=== PATIENT | female | born 1940 | race Caucasian/White ===

== ENCOUNTER 2019-05-24 14:24 | Observation (INO) | payer MEDICARE, OTHER, SELFPAY ==
[2019-05-24] VITALS (7 sets, daily range): BP systolic 126–164; BP diastolic 56–78; PULSE 76–93; RESP 16–27; TEMP 36.3–36.8; O2SAT 94–98; BMI 42.7
--- NOTE | 2019-05-24 14:50 | DI.RAD.S_ITS ---
PROCEDURE: XR CHEST 1V INDICATIONS: Shortness of breath TECHNIQUE: One view of the chest was acquired. COMPAR[facility]: [facility], [facility] CHEST 2 VIEWS, 06/23/2017, 13:29. [facility], CR, CHEST 1 VIEW, 04/07/2016, 15:31. [facility], CR, CHEST 1 VIEW, 04/02/2014, 19:26. FINDINGS: Surgical changes and devices: None. Lungs and pleura: Lungs are abnormal, mildly edematous. No pleural effusions or pneumothorax. Mediastinum: Mediastinal contours appear normal. Heart size is globally enlarged, chronically. Bones and chest wall: No suspicious bony lesions. Overlying soft tissues appear unremarkable. Thoracolumbar junction region bone cement appears present, at the inferior imaging margin. This has been previously present in June of 2017 also. IMPRESSION: Chronic CHF pattern with acute exacerbation. No focal pneumonia found. Dictated by: Louie Saavedra M.D. on 05/24/2019 at 15:45 Approved by: Louie Saavedra M.D. on 05/24/2019 at 15:46
[2019-05-24 15:07] LABS: Add Manual Diff / Slide Review NO; Basophils Absolute Auto 0 /uL (0-100); Basophils Percent Auto 0.3 % (0-2); Eosinophils Absolute Auto 0 /uL (0-450); Hematocrit 37.3 % (36-46); Hemoglobin 12.8 g/dL (12.0-16.0); Lymphocytes Absolute Auto 300 /uL (1100-4500); Mean Corpuscular HGB Conc 34.2 % (30-36); Mean Corpuscular Hemoglobin 33.3 PG (26-34); Mean Corpuscular Volume 97.4 fL (80-100); Monocytes Absolute Auto 100 /uL (0-900); Monocytes Percent Auto 1.3 % (3-14); Neutrophils Absolute Auto 8700 /uL (1500-7000); Neutrophils Percent Auto 95.4 % (50-75); Platelet Count 265 X10^3/uL (150-400); Red Blood Cell Count 3.83 X10^6/uL (4.0-5.2); Red Cell Distribution Width 14.4 % (11.6-14.8); White Blood Cell Count 9.1 X10^3/uL (4.5-11.0)
[2019-05-24 15:16] LABS: INR 1.3 (0.9-1.3); Prothrombin Time 14.4 SECONDS (10.1-12.7)
[2019-05-24 15:19] LABS: PTT Partial Thromboplastin Tim 33 SECONDS (26.4-36.2)
[2019-05-24 15:25] LABS: Alanine Aminotransferase 17 IU/L (<35); Albumin 4.4 g/dL (3.5-5.0); Albumin Globulin Ratio 1.3 (1.0-2.8); Alkaline Phosphatase 79 U/L (38-126); Aspartate Aminotransferase 24 IU/L (14-36); BUN Creatinine Ratio 42.9 (6-22); Bilirubin Total 0.3 mg/dL (0.2-1.3); Blood Urea Nitrogen 60 mg/dL (7-17); Calcium 10.5 mg/dL (8.4-10.2); Carbon Dioxide 38 mmol/L (22-32); Chloride 93 mmol/L (98-107); Estimated Glomerular Filt Rate 36.3 mL/min (>60); Globulin 3.4 g/dL (1.7-4.1); Glucose 195 mg/dL (80-110); HEMOLYSIS < 15 (0-50); Lipase 162 U/L (23-300); Potassium 4.4 mmol/L (3.4-5.1); Sodium 139 mmol/L (137-145); Total Protein 7.8 g/dL (6.3-8.2)
--- NOTE | 2019-05-24 15:26 | ED.GENADULT ---
HPI - General Adult General Chief complaint: Shortness of Breath/Dyspnea Stated complaint: Needs fluids, bad breathing, sent from Dr Time Seen by Provider: 05/24/19 14:48 Source: patient Mode of arrival: Ambulatory Limitations: no limitations History of Present Illness HPI narrative: Patient is a 79-year-old female sent in by her staple side laster for concerns of fluid overload. Patient states she does have a history of CHF. Is on 80 mg of Lasix 2 times a day. She has been on this for some time now. She does not know when her last echocardiogram was. She also has a history of COPD. Is on medications for this. Is on 2 L of oxygen at home at baseline. Patient states that over the past month she has gained approximately 30 lb. She also has lower extremity swelling. She saw her staple side laster on Friday of last week and was started on steroids. She called him today stating that she felt like her breathing was worsening was told to come to the emergency department. Patient states when she is lying in bed she is at her baseline however with any type of but went even sitting up in taking very short amount of steps next to the area where she is resting she becomes very short of breath. No chest pain associated with. She states she is taking her medications. Related Data Home Medications Medication Instructions Recorded Confirmed [place]-3 1 cap PO DAILY 05/24/19 05/24/19 acetaminophen 650 mg PO Q6H PRN 05/24/19 05/24/19 adalimumab [Humira(CF) Pen] mg SUBCUT 05/24/19 albuterol sulfate 1.25 mg INHALATION Q6H PRN 05/24/19 05/24/19 albuterol sulfate 2 inh INHALATION Q4H PRN 05/24/19 05/24/19 apixaban [Eliquis] 5 mg PO BID 05/24/19 05/24/19 budesonide-formoterol [Symbicort] 1 inh INHALATION BID 05/24/19 05/24/19 bupropion HCl 150 mg PO QPM 05/24/19 05/24/19 calcitonin (salmon) 1 spray INTRANASAL (ALT) DAILY 05/24/19 05/24/19 cholecalciferol (vitamin D3) 5,000 unit PO DAILY 05/24/19 05/24/19 [Vitamin D3] ferrous sulfate 325 mg PO DAILY 05/24/19 05/24/19 fluoxetine 20 mg PO DAILY 05/24/19 05/24/19 furosemide 160 mg PO DAILY 05/24/19 05/24/19 latanoprost 1 drp OPHTHALMIC (EYE) BEDTIME 05/24/19 05/24/19 levalbuterol HCl [Xopenex] 1.25 mg INHALATION Q4H 05/24/19 05/24/19 magnesium oxide 400 mg PO DAILY 05/24/19 05/24/19 melatonin 3 mg PO BEDTIME PRN 05/24/19 05/24/19 metolazone mg PO DAILY 05/24/19 montelukast 10 mg PO DAILY 05/24/19 05/24/19 potassium chloride 40 meq PO DAILY 05/24/19 05/24/19 prednisone See Rx Instructions .ROUTE .COMPLEX 05/24/19 05/24/19 spironolactone 75 mg PO DAILY 05/24/19 05/24/19 tiotropium bromide [Spiriva INHALATION 05/24/19 Respimat] Previous Rx's Medication Instructions Recorded spironolactone 50 mg PO QDAY #30 tab 04/09/16 Allergies Allergy/AdvReac Type Severity Reaction Status Date / Time Sulfa (Sulfonamide Allergy Unknown Unverified 07/02/17 12:30 Antibiotics) Review of Systems Constitutional Constitutional: Denies fever(s) and Denies headache(s) ENT Ears, Nose, Mouth, and Throat: Denies headache(s) Cardiovascular Cardiovascular: Denies chest pain, Denies syncope, Denies rapid heart rate, Reports pedal edema, Reports edema, Reports leg edema, Reports dyspnea and Reports dyspnea on exertion Respiratory Respiratory: Denies cough, Denies hemoptysis, Reports dyspnea and Reports dyspnea on exertion Gastrointestinal Gastrointestinal: Denies abdominal pain, Denies nausea and Denies vomiting Musculoskeletal Musculoskeletal: Denies myalgias and Denies arthralgias Integumentary/Breasts Skin/Breast: Denies lesions and Denies rash Neurologic Neurologic: Denies behavioral changes, Denies syncope and Denies headache(s) Psychiatric Psychiatric: Denies behavioral changes Hematologic/Lymphatic Comments: On Coumadin Patient History Medical History Atrial fibrillation (Acute) Congestive heart failure (Acute) COPD (chronic obstructive pulmonary disease) (Acute) Social History Smoking Status: Former smoker Smoking Status: Former smoker alcohol intake frequency: other Substance Use Type: does not use Exam Initial Vital Signs Initial Vital Signs: Vital Signs Temperature 98.3 F 05/24/19 14:30 Pulse Rate 87 05/24/19 14:30 Respiratory Rate 27 H 05/24/19 14:30 Blood Pressure 164/76 H 05/24/19 14:30 Pulse Oximetry 96 05/24/19 14:30 Const General: cooperative and comfortable Limitations: mental status not altered HENMT Head: normal to inspection and normocephalic Resp Effort & Inspection: normal respiratory effort Auscultation: clear to auscultation bilaterally Cardio Rate: regular rate Rhythm: regular rhythm Pulses: radial pulses present GI Inspection: non-distended Palpation: soft Skin Lesions: no lesions Rashes: no rashes Neuro General: alert, awake and oriented x3 Cognition: normal cognition Speech: speech normal Extrem General: capillary refill normal and edema Psych Appearance: grossly normal and well kempt Scores GCS [place] coma scale eye opening: Spontaneous [place] coma scale verbal response: Orientated [place] coma scale motor response: Obey commands Clyde coma scale total score: 15 Course Orders Ordered: ED Orders 05/24/19 14:50 XR chest 1V Stat 05/24/19 14:57 Complete Blood Count AUTO DIFF Stat Comprehensive Metabolic Panel Stat Lipase Stat NT-proBNP (BNP-Adult 18+) Stat Partial Thromboplastin Time Stat Prothrombin Time INR Stat Troponin I Stat Discontinued Medications Furosemide 100 mg/ Sodium (Chloride) 60 mls @ 120 mls/hr IV NOW ONE Stop: 05/24/19 15:27 Last Infusion: 05/24/19 16:27 Dose: 0 mls/hr Documented by: Admin: 05/24/19 15:53 Dose: 120 mls/hr Documented by: CHERRIE Vital Signs Vital signs: Vital Signs - 8 hr 05/24/19 14:30 05/24/19 15:21 05/24/19 16:09 Temperature 98.3 F Pulse Rate 87 78 76 Respiratory Rate 27 H 22 18 Blood Pressure 164/76 H Blood Pressure [Right Arm] 127/57 L 139/64 Pulse Oximetry 96 95 95 Medical Decision Making Medical Records Medical records reviewed: Yes I reviewed the patient's medical records. Lab Data Lab results reviewed: Yes I reviewed the patient's lab results. Result diagrams: 05/24/19 14:57 05/24/19 14:57 Labs: Lab Results 05/24/19 05/24/19 05/24/19 Range/Units 14:57 14:57 14:57 WBC 9.1 (4.5-11.0) X10^3/uL RBC 3.83 L (4.0-5.2) X10^6/uL Hgb 12.8 (12.0-16.0) g/dL Hct 37.3 (36-46) % MCV 97.4 (80-100) fL MCH 33.3 (26-34) PG MCHC 34.2 (30-36) % RDW 14.4 (11.6-14.8) % Plt Count 265 (150-400) X10^3/uL Neut % (Auto) 95.4 H (50-75) % Lymph % (Auto) 3.0 L (25-40) % [place] % (Auto) 1.3 L (3-14) % Eos % (Auto) 0.0 L (2-4) % Baso % (Auto) 0.3 (0-2) % Neut # (Auto) 8700 H (7580-1992) /uL Lymph # (Auto) 300 L (1227-9624) /uL [place] # (Auto) 100 (0-900) /uL Eos # (Auto) 0 (0-450) /uL Baso # (Auto) 0 (0-100) /uL PT 14.4 H (10.1-12.7) SECONDS INR 1.3 (0.9-1.3) APTT 33 (26.4-36.2) SECONDS Sodium 139 (137-145) mmol/L Potassium 4.4 (3.4-5.1) mmol/L Chloride 93 L (98-107) mmol/L Carbon Dioxide 38 H (22-32) mmol/L BUN 60 H (7-17) mg/dL Creatinine 1.40 H (0.52-1.04) mg/dL Estimated GFR 36.3 L (>60) mL/min BUN/Creatinine Ratio 42.9 H (6-22) Glucose 195 H (80-110) mg/dL Calcium 10.5 H (8.4-10.2) mg/dL Total Bilirubin 0.3 (0.2-1.3) mg/dL AST 24 (14-36) IU/L ALT 17 (<35) IU/L Alkaline Phosphatase 79 (38-126) U/L Troponin I 0.016 (0.01-0.034) ng/mL NT-Pro-B Natriuret Pep 337 (<450) pg/mL Total Protein 7.8 (6.3-8.2) g/dL Albumin 4.4 (3.5-5.0) g/dL Globulin 3.4 (1.7-4.1) g/dL Albumin/Globulin Ratio 1.3 (1.0-2.8) Lipase 162 (23-300) U/L Imaging Data Chest x-ray: Radiologist's Impression: [address] [address] XRay Report Signed Patient: Leyda Nielsen MMR#: [id number] : 1940Acct:[id number] Age/Sex: 79 / FDate of Service: 05/24/19 Loc: ED Accession Number: [id number] Procedure: XR chest 1V Ordering Provider: Chico Nolasco D.O. PROCEDURE: XR CHEST 1V INDICATIONS: Shortness of breath TECHNIQUE: One view of the chest was acquired. [facility], 06/23/2017, 13:29. [facility], CR, CHEST 1 VIEW, 04/07/2016, 15:31. [facility], CR, CHEST 1 VIEW, 04/02/2014, 19:26. FINDINGS: Surgical changes and devices: None. Lungs and pleura: Lungs are abnormal, mildly edematous. No pleural effusions or pneumothorax. Mediastinum: Mediastinal contours appear normal. Heart size is globally enlarged, chronically. Bones and chest wall: No suspicious bony lesions. Overlying soft tissues appear unremarkable. Thoracolumbar junction region bone cement appears present, at the inferior imaging margin. This has been previously present in June of 2017 also. IMPRESSION: Chronic CHF pattern with acute exacerbation. No focal pneumonia found. Dictated by: Louie Saavedra M.D. on 05/24/2019 at 15:45 Approved by: Louie Saavedra M.D. on 05/24/2019 at 15:46 ECG Data Attestation: I personally reviewed and interpreted this ECG as follows: Prior ECG tracings: not available for review Interpretation: Sinus rhythm Ventricular rate is 73 Left axis deviation QRS 160 milliseconds Normal QTC Right bundle branch block No ST T wave changes MDM Narrative Medical decision making narrative: Patient not in atrial fibrillation on her EKG she is at baseline 2 L by nasal cannula and is now requiring 3 or more L. She is dyspneic on exertion. She is rather calm and not in respiratory distress when she is just sitting in the bed. Her chest x-rays concerning for fluid overload. Clinically she is concern for fluid overload. Not hypertensive. Her BNP is relatively unremarkable. Troponin is negative. She is not complaining of chest pain. She was given 100 mg Lasix IV. A [place] was placed per her request due to the dyspnea whenever she moves in the anticipation of having to urinate. I did discuss the case with Dr. Cardenas who except for further evaluation and treatment. I discussed with the patient expressed understanding and agreement. Discharge Plan Departure Patient Disposition: Admitted As Inpatient Clinical Impression: BASHIR (dyspnea on exertion) CHF (congestive heart failure) Qualifiers: Heart failure type: unspecified Heart failure chronicity: acute Qualified Code(s): I50.9 - Heart failure, unspecified COPD (chronic obstructive pulmonary disease) Qualifiers: COPD type: unspecified COPD Qualified Code(s): J44.9 - Chronic obstructive pulmonary disease, unspecified Admit Date/Time: 05/24/19 16:29 Admit Provider: Norman Cardenas
[2019-05-24 15:35] LABS: NT-proBNP (BNP-Adult 18+) 337 pg/mL (<450); Troponin I 0.016 ng/mL (0.01-0.034)
[2019-05-24] MEDS: FUROSEMIDE 100 MG in SODIUM CHLORIDE 0.9% 50 ML 120 ML IV ×2 (15:53→22:12)
--- NOTE | 2019-05-24 18:34 | P.HP_ITS ---
History of Present Illness History of Present Illness Date Patient Seen: 05/24/19 Time Patient Seen: 18:36 Chief complaint: Needs fluids, bad breathing, sent from Dr Ayers: Leyda Nielsen is a 79-year-old female with past medical history of COPD on home O2, paroxysmal atrial fibrillation on Eliquis, psoriasis on Humira, and osteoporosis who presented after recommendation from her water treatment technician to the emergency room with dyspnea on exertion. Patient states that she is not short of breath at rest, but for the past month she is unable to really ambulate at all without shortness of breath. She has also gained approximately 30 lb over this time and reports both upper and lower extremity edema, although her edema is somewhat worse in her lower extremity. She takes Lasix and metolazone for her edema, but has been on this for the past year without any changes. She did not have a dosing change recently. She was recommended to come to the emergency room for diuresis as directed by her water treatment technician who she saw earlier today. She reports a slightly worsened cough from baseline, with white/thick sputum, but no recent fevers or chills. She denies any nasal congestion, headaches, muscle aches, or recent sick contacts. In the ED the patient had hypoxia with minimal exertion, but not at rest. She was given a dose of 80 mg of IV Lasix with no real change in the patient's symptoms. Chest x-ray showed cardiomegaly with bilateral hazy opacities consis tent with volume overload. EKG showed sinus rhythm with a right bundle branch block, which is old, without any significant morphology changes compared to her prior EKGs. Laboratory evaluation showed a WBC count of 9.1, but was otherwise unremarkable. Chemistries were notable for a creatinine of 1.4, last known was 0.8 in 2017, glucose of 195, calcium of 10.5 (corrected normal with albumin of 4.4), and a bicarb of 38, BNP of 337, troponin of 0.016. Patient was admitted to Medicine for likely acute decompensated CHF. Patient History Medical History Atrial fibrillation (Acute) Congestive heart failure (Acute) COPD (chronic obstructive pulmonary disease) (Acute) Family & Social History Social History: household members none Prior Living Arrangements House Safety & Behavioral: Feels Safe in Current Yes Environment Been Physically Hurt or No Threatened By a Person Suicidal Ideation Description None Suicide Plan Description No Plan Tobacco & Substance use: Smoking Status Former smoker alcohol intake current alcohol intake frequency a few times a week Substance Use Type does not use Meds Home Medications and Allergies Home Medications Medication Instructions Recorded Confirmed Type [place]-3 1 cap PO DAILY 05/24/19 05/24/19 History acetaminophen 650 mg PO Q6H PRN 05/24/19 05/24/19 History adalimumab [Humira(CF) Pen] 0.4 mg SUBCUT Q2W 05/24/19 05/24/19 History albuterol sulfate 1.25 mg INHALATION Q6H PRN 05/24/19 05/24/19 History albuterol sulfate 2 inh INHALATION Q4H PRN 05/24/19 05/24/19 History apixaban [Eliquis] 5 mg PO BID 05/24/19 05/24/19 History budesonide-formoterol [Symbicort] 1 inh INHALATION BID 05/24/19 05/24/19 History bupropion HCl 150 mg PO QPM 05/24/19 05/24/19 History calcitonin (salmon) 1 spray INTRANASAL (ALT) DAILY 05/24/19 05/24/19 History cholecalciferol (vitamin D3) 5,000 unit PO DAILY 05/24/19 05/24/19 History [Vitamin D3] ferrous sulfate 325 mg PO DAILY 05/24/19 05/24/19 History fluoxetine 20 mg PO DAILY 05/24/19 05/24/19 History furosemide 80 mg PO BID 05/24/19 05/24/19 History latanoprost 1 drp OPHTHALMIC (EYE) BEDTIME 05/24/19 05/24/19 History levalbuterol HCl [Xopenex] 1.25 mg INHALATION Q4H 05/24/19 05/24/19 History magnesium oxide 400 mg PO DAILY 05/24/19 05/24/19 History melatonin 3 mg PO BEDTIME PRN 05/24/19 05/24/19 History metolazone 1.25 mg PO DAILY 05/24/19 05/24/19 History montelukast 10 mg PO QPM 05/24/19 05/24/19 History potassium chloride 40 meq PO DAILY 05/24/19 05/24/19 History prednisone See Rx Instructions .ROUTE .COMPLEX 05/24/19 05/24/19 History spironolactone 75 mg PO DAILY 05/24/19 05/24/19 History tiotropium bromide [Spiriva 2 inh INHALATION DAILY 05/24/19 05/24/19 History Respimat] Allergies Allergy/AdvReac Type Severity Reaction Status Date / Time Sulfa (Sulfonamide Allergy Unknown Unverified 07/02/17 12:30 Antibiotics) Review of Systems Review of Systems Narrative: All other systems reviewed with the patient and are negative unless otherwise stated. Exam Vital Signs (past 8 hours): - 05/24/19 14:30 05/24/19 15:21 05/24/19 16:09 Temperature 98.3 F Pulse Rate 87 78 76 Respiratory Rate 27 H 22 18 Blood Pressure 164/76 H Blood Pressure [Right Arm] 127/57 L 139/64 Pulse Oximetry 96 95 95 05/24/19 17:25 Temperature 98.2 F Pulse Rate 78 Respiratory Rate 20 Blood Pressure 131/78 Blood Pressure [Right Arm] Pulse Oximetry 97 Oxygen Delivery Method Nasal Cannula Oxygen Flow Rate 0 Narrative Exam Narrative: GENERAL APPEARANCE: Obese female, in no acute distress SKIN: Inspection of the skin reveals no rashes, ulcerations or petechiae. HEENT: Moist mucous membranes, there is no rhinorrhea, no oral lesions. NECK: Supple and symmetric. There was no thyroid enlargement, and no tenderness, or masses were felt. CHEST: Normal AP diameter and normal contour without any kyphoscoliosis. LUNGS: Auscultation of the lungs revealed bibasilar crackles, with diminished breath sounds at the lung bases as well. Upper airways there are no wheezes rhonchi or rales. CARDIOVASCULAR: There was a regular rate and rhythm without any murmurs, gallops, rubs. Peripheral pulses were 2+ and symmetric. No JVD, but positive hepato-jugular reflex. ABDOMEN: Soft, obese, and nontender with normal bowel sounds. No ascites was noted. MUSCULOSKELETAL: There was no tenderness or effusions noted. Muscle strength and tone were normal. EXTREMITIES: No cyanosis, clubbing. There is pitting edema of her bilateral lower extremities, she also has upper extremity edema but it is not pitting consistent with possible anasarca. NEUROLOGIC: Alert and oriented x 3. Normal affect. Gait was normal. Strength is +5/5 in the Upper Extremities and Lower Extremities Bilaterally. Sensation to touch was normal. Objective ECG Impression: Normal sinus rhythm with unchanged right bundle branch block. Imaging Chest x-ray: My impression: Obesity, cardiomegaly, bilateral hazy opacities consistent with volume overload. Radiologist's impression: Acute CHF. Labs Result Diagrams: 05/24/19 14:57 05/24/19 14:57 Labs: Laboratory Results - last 24 hr 05/24/19 05/24/19 05/24/19 14:57 14:57 14:57 WBC 9.1 RBC 3.83 L Hgb 12.8 Hct 37.3 MCV 97.4 MCH 33.3 MCHC 34.2 RDW 14.4 Plt Count 265 Neut % (Auto) 95.4 H Lymph % (Auto) 3.0 L [place] % (Auto) 1.3 L Eos % (Auto) 0.0 L Baso % (Auto) 0.3 Neut # (Auto) 8700 H Lymph # (Auto) 300 L [place] # (Auto) 100 Eos # (Auto) 0 Baso # (Auto) 0 PT 14.4 H INR 1.3 APTT 33 Sodium 139 Potassium 4.4 Chloride 93 L Carbon Dioxide 38 H BUN 60 H Creatinine 1.40 H Estimated GFR 36.3 L BUN/Creatinine Ratio 42.9 H Glucose 195 H Calcium 10.5 H Total Bilirubin 0.3 AST 24 ALT 17 Alkaline Phosphatase 79 Troponin I 0.016 NT-Pro-B Natriuret Pep 337 Total Protein 7.8 Albumin 4.4 Globulin 3.4 Albumin/Globulin Ratio 1.3 Lipase 162 Assessment & Plan Assessment & Plan narrative: Leyda Nielsen is a 79-year-old female with past medical history of COPD on home O2, paroxysmal atrial fibrillation on Eliquis, psoriasis on Humira, and osteoporosis who presented after recommendation from her water treatment technician to the emergency room with dyspnea on exertion which at this time appears most likely due to acute decompensated heart failure, pending further evaluation. 1. Acute on chronic hypoxemic respiratory failure with dyspnea on exertion, present on admission -patient with baseline dyspnea on exertion limited to about 50 ft from her severe COPD. She is also on chronic home O2 but reports her oxygen requirements have increased at home from 1-2 L to now 3-4 over the past month and the patient further reports inability to ambulate at all due to severe shortness of breath. -at this time etiology is most likely acute decompensated heart failure given chest x-ray appearance, volume overload on exam, and recent 30 lb weight gain. Further differential includes nephrotic syndrome with difficulty diuresing, or possibly cor pulmonale, upper respiratory infection or COPD exacerbation however these are felt unlikely at this time. -will continue IV diuresis with Lasix 100 mg every 8 hours -obtain formal echocardiogram -try and obtain outside records from patient's water treatment technician -obtain viral respiratory panel -respiratory therapy eval and treat -pending echocardiogram likely to recommend holding Humira as this can be a cause of acute heart failure. -continue home Aldactone -initial high sensitivity troponin is within normal limits, in a patient without chest pain or EKG changes will not repeat at this time. 2. Paroxysmal atrial fibrillation on anticoagulation, chronic, not present on admission -continue home apixaban -EKG on presentation was normal sinus rhythm with a right bundle branch block, unchanged from prior studies. 3. COPD on home O2, likely does not represent acute exacerbation -as noted above dyspnea on exertion is likely due to volume overload at this time. Will obtain viral panel to further assess, but will attempt diuresis 1st. She is not require steroids at this time. She takes home Spiriva and Symbicort, will replace here with formulary medications. -respiratory therapy eval and treat 4. Psoriasis on Humira, chronic, improved -patient reports Humira injections every 2 weeks, with last dose approximately week and half ago. Pending further evaluation above she may need to discontinue Humira and follow-up with her photographer motion picture if she has heart failure. She reports good response to Humira as far as her psoriasis. 5. Metabolic alkalosis, unclear chronicity, present on admission -will check VBG in the morning to see if there is any hypercarbia with her chronic respiratory failure as this may explain her alkalosis. Given anasarca, with high dose of Lasix and metolazone this could also represent intravascular volume depletion. Will need to see based on her echocardiogram, response to Lasix, and kidney workup as above. Code: Full, does not have a specific surrogate decision maker, but elects to have her sons make decisions for her DVT: On apixaban Dispo: Admitted as inpatient as her stay is likely to exceed 2 midnights.
--- NOTE | 2019-05-24 18:51 | DI.ECHO.S_ITS ---
[facility] +---------+ : : [address] : [place] : : : : [id number] : : : : Phone: [phone]+ Echocardiogram Report + + :Name: ARBEN BAL Study Date: 05/26/2019 Height: 64 in : :[facility] Weight: 249 lb : : Gender: Female BSA: 2.1 m2 : :: 1940 Age: 79 yrs BP: 120/77 mmHg: :Reason For Study: Dyspnea : :Ordering Physician: Davina : :Hospitalist Performed By: Esthela Macias : :Referring: ANEL CLIFFORD : + + Interpretation Summary The study quality was technically difficult. A contrast injection of Definity was performed to improve assessment of LV function. Left ventricular wall thickness is mild-moderately increased. The left ventricular ejection fraction is normal. No obvious wall motion abnormalities but image quality is suboptimal despite echocontrast use due to patient's body habitus and poor acoustic windows. The anterior wall is not adequately visualized due to poor 2 chamber views. Compared to the prior echo, the PA pressure is lower. Procedure: A two-dimensional transthoracic echocardiogram with color flow and Doppler was performed. The study quality was technically difficult. A contrast injection of Definity was performed to improve assessment of LV function. Comparison is made with the echocardiogram of 04/08/2016. The patient was in sinus tachycardia with heart rates between 86-113 bpm during the exam. Left Ventricle: The left ventricle is grossly normal size. Left ventricular wall thickness is mild-moderately increased. The ejection fraction is estimated to be 60-65%. The left ventricular ejection fraction is normal. There are no obvious focal wall motion abnormalities noted but poor endocardial definition reduces the sensitivity for the detection of such. Diastolic function could not be accurately assessed due to tachycardia. Right Ventricle: The right ventricle is not well visualized. Right ventricular systolic function is at the lower limits of normal. Atria: The left atrium grossly appears normal in size. Right atrium not well visualized secondary to technical limitations. There is no Doppler evidence for an interatrial shunt. Mitral Valve: The mitral valve is grossly normal. There is trace mitral regurgitation. Aortic Valve: The aortic valve is not well visualized. There is no aortic valve stenosis. No aortic regurgitation is present. Tricuspid Valve: The tricuspid valve is not well visualized. There is trace tricuspid regurgitation. The right ventricular systolic pressure is estimated to be at least 24 mmHg based on an estimated right atrial pressure of 3 mm Hg. Pulmonic Valve: The pulmonic valve is not well visualized. Great Vessels: The aortic root is normal size. The ascending aorta is at the upper limits of normal in size. The IVC is of normal diameter and collapses greater than 50% with a sniff. This suggests a low right atrial pressure of 3 mm Hg. Pericardium/ Pleura There is no pericardial effusion. There is no pleural effusion. MMode/2D Measurements & Calculations LVIDd: 5.3 cm LVOT diam: 2.2 cm LVIDs: 3.8 cm Ao root diam: 3.3 cm FS: 27.9 % asc Aorta Diam: 3.4 cm IVSd: 1.1 cm LVPWd: 1.4 cm LV valdez. diameter/BSA (cm/m^2): 2.5 LV sys. diameter/BSA (cm/m^2): 1.8 LA A2 area: 19.6 cm2 RA long axis: 5.5 cm LA A4 area: 23.9 cm2 RA area: 19.1 cm2 LA length (vol): 5.8 cm RA vol: 56.9 ml LA vol: 69.0 ml RA : 26.5 ml/m2 LA vol index: 32.2 ml/m2 IVC diam: 1.5 cm TAPSE: 1.7 cm Doppler Measurements & Calculations Ao V2 max: 185.3 cm/sec LVOT Max Dionicio: 88.9 cm/sec Ao V2 mean: 128.7 cm/sec LV V1 max P.2 mmHg Ao max P.7 mmHg LV V1 VTI: 13.8 cm Ao mean P.5 mmHg STEVE(I,D): 1.8 cm2 Ao V2 VTI: 28.1 cm STEVE(V,D): 1.8 cm2 sev ratio: 0.49 STEEV indexed to BSA (cm^2/m^2): 0.84 Med Peak E' Dionicio: 9.9 cm/sec TR max dionicio: 230.8 cm/sec Lat Peak E' Dionicio: 9.6 cm/sec TR max P.3 mmHg PA Accel Time: 0.06 sec SV(LVOT): 50.8 ml Electronically signed by: Gato Askew M.D. on Reading Physician:05/26/2019 02:05 PM
[2019-05-24 19:08] LABS: Creatinine Urine Random 45.4 mg/dL; Protein (Total) Urine Random 10 mg/dL (0-12); Protein Creatinine Ratio Urine 0.22 GRAM/24H
--- NOTE | 2019-05-24 19:32 | DI.US.S_ITS ---
PROCEDURE: US RENAL COMPLETE INDICATIONS: DOM, ANASARCA TECHNIQUE: Real-time scanning was performed of the kidneys and bladder, with image documentation. COMPARISON: None. FINDINGS: Kidneys: Kidneys are normal in size. Right kidney measures 10.4 cm long; left kidney measures 11.5 cm long. Right renal cortical thickness is 1.3 cm; left renal cortical thickness is 1.2 cm. Renal cortical echotexture is normal. Kidneys are increased in echogenicity. No hydronephrosis or nephrolithiasis seen. No suspicious solid mass lesions. Bladder: Decompressed with Willoughby catheter. Miscellaneous: No free pelvic fluid. IMPRESSION: No hydronephrosis. Increased renal echogenicity suggestive of medical renal disease. Dictated by: Petey Mcclelland M.D. on 05/26/2019 at 10:58 Approved by: Petey Mcclelland M.D. on 05/26/2019 at 11:00
[2019-05-24] MEDS: ALBUTEROL/IPRATROPIUM 3 ML AMPUL INH (21:04)
[2019-05-24] MEDS: APIXABAN 5 MG TABLET PO (22:07)
[2019-05-24 22:22] LABS: Bacteria Urine None Seen; WBC Urine None Seen (0-5/HPF)
[2019-05-24 22:24] LABS: Appearance Urine UA CLEAR; Bilirubin Urine UA NEGATIVE (NEGATIVE); Color Urine UA YELLOW; Glucose Urine UA NEGATIVE (Negative); Ketones Urine UA NEGATIVE (NEGATIVE); Leukocyte Esterase Urine UA TRACE (NEGATIVE); Nitrite Urine UA NEGATIVE (Negative); Occult Blood Urine UA TRACE-INTACT (Negative); Protein Urine UA NEGATIVE (Negative); Specific Gravity Urine UA 1.015 (1.000-1.035); Urobilinogen Urine UA 0.2 E.U./dL (0.2)
[2019-05-24 22:25] LABS: pH Urine UA 6.5 (4.5-8.0)
[2019-05-24] MEDS: FLUTICASONE 110MCG HFA 120 PUFF INH (22:31)
[2019-05-24] MEDS: LATANOPROST 0.005% OPHTH 2.5 ML 1 DROPS EYE-BOTH (22:38)
--- NOTE | 2019-05-24 22:41 | PC.NURSE ---
Pt arrived from ED @ 1725 Some SOB on excertion. SpO2 95% 3L, trilogy at HS HL LFA intact/patent. Willoughby cath patent clear/yellow urine. Pt oriented to room & call system. Call light w/in reach, bed alarm on for pt safety. Continue w/plan of care.
[2019-05-24 23:09] LABS: Culture Indicated Urine Specimen Cultured; RBC Urine 0-1/HPF (0-5/HPF)
[2019-05-25] VITALS (7 sets, daily range): BP systolic 108–136; BP diastolic 42–82; PULSE 74–106; RESP 16–22; TEMP 36.5–37.1; O2SAT 94–99
[2019-05-25 05:36] LABS: HCO3 VBG 45 mmol/L (23-28); Oxygen Saturation VBG 94 % (70-75); PCO2 VBG 63.4 mmHg (45-50); PO2 VBG 72 mmHg (35-45); Total CO2 VBG 47 mmol/L (24-29); pH VBG 7.46 (7.33-7.43)
[2019-05-25 05:45] LABS: BUN Creatinine Ratio 45.4 (6-22); Blood Urea Nitrogen 59 mg/dL (7-17); Calcium 10.3 mg/dL (8.4-10.2); Chloride 87 mmol/L (98-107); Estimated Glomerular Filt Rate 39.5 mL/min (>60); Glucose 104 mg/dL (80-110); HEMOLYSIS < 15 (0-50); Magnesium 1.9 mg/dL (1.6-2.3); Phosphorous 3.7 mg/dL (2.8-4.1); Potassium 3.5 mmol/L (3.4-5.1); Sodium 137 mmol/L (137-145)
[2019-05-25 05:56] LABS: Add Manual Diff / Slide Review NO; Basophils Absolute Auto 0 /uL (0-100); Basophils Percent Auto 0.3 % (0-2); Eosinophils Absolute Auto 0 /uL (0-450); Eosinophils Percent Auto 0.4 % (2-4); Hematocrit 36.5 % (36-46); Hemoglobin 12.4 g/dL (12.0-16.0); Lymphocytes Absolute Auto 1100 /uL (1100-4500); Lymphocytes Percent Auto 12.9 % (25-40); Mean Corpuscular Hemoglobin 32.9 PG (26-34); Mean Corpuscular Volume 96.9 fL (80-100); Monocytes Absolute Auto 800 /uL (0-900); Monocytes Percent Auto 9.6 % (3-14); Neutrophils Absolute Auto 6500 /uL (1500-7000); Neutrophils Percent Auto 76.8 % (50-75); Platelet Count 245 X10^3/uL (150-400); Red Blood Cell Count 3.77 X10^6/uL (4.0-5.2); Red Cell Distribution Width 14.4 % (11.6-14.8); White Blood Cell Count 8.4 X10^3/uL (4.5-11.0)
[2019-05-25 05:59] LABS: TSH w/ Reflex to FT4 1.01 uIU/mL (0.47-4.68)
[2019-05-25] MEDS: FUROSEMIDE 100 MG in SODIUM CHLORIDE 0.9% 50 ML 120 ML IV ×3 (06:01→22:03)
[2019-05-25 06:11] LABS: Carbon Dioxide 41 mmol/L (22-32)
--- NOTE | 2019-05-25 06:12 | PC.NURSE ---
Lab called with Critical Co2 @ 41. Rosario RHODES notified.
[2019-05-25] MEDS: acetaZOLAMIDE 250 MG TABLET PO ×2 (08:34→20:38)
[2019-05-25] MEDS: CALCITONIN,SALMON, NASAL SPRAY 1 SPRAYS NASAL (08:35)
[2019-05-25] MEDS: SPIRONOLACTONE 25 MG TABLET 75 MG PO (08:35)
[2019-05-25] MEDS: FLUoxetine 20 MG CAPSULE PO (08:35)
[2019-05-25] MEDS: FLUTICASONE 110MCG HFA 120 PUFF INH ×2 (08:35→20:38)
[2019-05-25] MEDS: FERROUS SULFATE 325 MG TABLET PO (08:43)
[2019-05-25] MEDS: APIXABAN 5 MG TABLET PO ×2 (08:43→20:35)
[2019-05-25] MEDS: ALBUTEROL/IPRATROPIUM 3 ML AMPUL INH ×2 (08:52→20:38)
--- NOTE | 2019-05-25 09:18 | CM.DANOTE ---
Addendum entered by Amanda Peoples LPN 05/25/19 13:11: Was able to meet with pt before Bedside Rounds and again in followup when rounding with Dr. Cardenas and team. Introduced self and role. Pt stated that I feel so much better. I am hopeful that I will be able to go home soon. Pt confirms that she does use o2 14/10: vendor: [employer] (they just changed the name). She drives and is functionally independent in the community, only using her 4WW when she is out and about (and it is a good carrier for her 02.) Pt says she has lots of family support. She is but her sister Latrice is currently staying with her for supportive assist. She also has 3 adult children who both live within 2 blocks of her home. Pt needing testing that Dr. Cardenas confirmed must be done prior to consideration of a d/c to home and at this point he expects this to be tomorrow. He discussed this with pt in Rounds. PT has also been ordered. No note is yet available. P: home when stable for same. Original Note: Discharge Planning/Care Management DCP: assessment: case received, EMR reviewed. Will meet with pt shortly in Team Rounds. Pt is a 79 year old female who admitted yesterday late afternoon to care of hospitalist team. PCP: Josue Menchaca. Brand Marketing Specialist: pt was sent to ER after seeing this specialist in clinic. Payer: Medicare and for Life Admission status: in review: per UR MEAGAN Robison Pt carries diagnosis : COPD and on home o2. She sees a harness racing handicapper for psoriosis: on Humira Obesity: note weight: 272 lbs. Full dx and POC are currently in process. DCP team will follow to assist with d/c issues and options as these are clearer. CM Discharge Assessment Start: 05/25/19 09:16 Freq: Status: Active Protocol: Document 05/25/19 09:16 ITV (Rec: 05/25/19 09:18 ITV [id number]) Discharge Planning Assessment Advance Directives? No History Provided By Patient,Medical Record Prior Living Arrangements House Household Members none Whiteboard Updated in Patient Room with Yes name and ext. # of Welt Edge Rounder Review Status In Process
--- NOTE | 2019-05-25 11:11 | PC.NURSE ---
Pt denies dyspnea, at rest; O2 1L=95%; fine crackles to posterior RLL; 1+ Edema and pink, dry skin to BLLEs; generalized dry skin r/t psoriasis; Willoughby patent and draining clear yellow to gravity; PT ordered
--- NOTE | 2019-05-25 14:30 | PT.IIE ---
Current Diagnoses Acute and chronic respiratory failure with hypoxia (05/24/19) Medical History (Last Reviewed 05/24/19 @ 16:57 by Chico Nolasco DO) Atrial fibrillation (Acute) Congestive heart failure (Acute) COPD (chronic obstructive pulmonary disease) (Acute) Physical Therapy Inpatient Evaluation/Re-Eval M1 PT/OT-IP Prior Functional Status Start: 05/25/19 15:37 Freq: NEEDED Status: Active Protocol: Document 05/25/19 14:30 AB (Rec: 05/25/19 16:11 AB [id number]) Medical Review Prior Functional Status Medical History Reviewed Yes Communication able to make needs known Mobility and Gait pt stated that she is modified independent with all mobilities an ambulation without AD indoors but uses 4WW for outdoor/long distance mobility Social History Household Members none Living Arrangements House Number of Floors (Floors) Two Floors Number of Stairs To Enter/Railing? pt stays on main level of the house has 7+7 steps with bilateral rails to enter Home Environment High Toilet,Walk in Shower Home Equipment Four Wheel Walker,Shower Seat with Backrest,Hand Held Shower ,Grab Bars Near Toilet,Grab Bars In Shower Additional Social History Comment pt has R bedrail pt's sister will stay with pt until the end of the month to assist her M2 PT-IP Current Condition Start: 05/25/19 15:37 Freq: NEEDED Status: Active Protocol: Document 05/25/19 14:30 AB (Rec: 05/25/19 16:11 AB [id number]) Physical Therapy Current Condition Current Condition Evaluation Date 05/25/19 Treatment Diagnosis CHF; difficulty in walking Onset Date 05/24/2019 Precautions Other Precautions O2 sat M3 PT-IP Subjective Start: 05/25/19 15:37 Freq: NEEDED Status: Active Protocol: Document 05/25/19 14:30 AB (Rec: 05/25/19 16:11 AB [id number]) Subjective Physical Therapy Visit Type Type Initial Evaluation Visit Start Time 14:30 Visit Stop Time 15:00 Total Visit Minutes 30 Number of WOODWORK SALVAGE INSPECTOR Visits 0 Physical Therapy Visit Comments Patient Comments pt agreeable to do PT Therapy Pain Assessment Pain Present Pain Present Denied Pain M4 PT-IP Mobility and Gait Start: 05/25/19 15:37 Freq: NEEDED Status: Active Protocol: Document 05/25/19 14:30 AB (Rec: 05/25/19 16:11 AB [id number]) PT-Bed Mobility Assessment Supine to Sit Supine to Sit Standby Assistance,Bedrails PT-Transfer Assessment Sit to and From Stand Sit to and from Stand Contact Guard Assistance,1 Person Assistance,Use of Upper Extremities Equipment Transfer Assistive Device None,Gait Belt Orthotic/Prosthetic Devices or Brace: No Transfers Transfer Destination Chair Transfer Technique ambulated without AD Transfer Ability Level of Assist Contact Guard Assistance,1 Person Assistance,Use of Upper Extremities Comments Mobility Comments pt completed bed mobility supine to sit SBA with use of bed rail. completed sit to stand CGA and ambulated in room ~ 25 ft CGA. pt can be impulsive. O2 sat at rest with 1 1/2 O2 96% and maintained at 92% with acitivity. pt agreed to sit up on chair. positioned pt on chair. call light and table placed within reach. Gait Assessment Gait Gait Assistance Required: Contact Guard Assist Distance (Feet) 25 Able to Maintain Weight Bearing Status Yes During Gait Assistive Devices Assistive Device None,Gait Belt Orthotic/Prosthetic Devices or Brace: No Gait Deviations General Gait Pattern Antalgic,Decreased Stride Length,Decreased Feet Clearance,Step-to Gait Factors Limiting Gait Function Factors Limiting Gait Function Decreased Activity Tolerance, Decreased Strength,Poor Balance,Poor Safety Awareness, Respiratory Distress Comments Gait Comments ambulated in room. pt can be impulsive. presents with unsteady antalgic gait. O2 sat with 1 1/2 L/min O2: 96 %. decreased to 92% after ambulation. MN after ambulation 121 bpm with (+) SOB. PT-Balance Assessment Sitting Balance and Reactions Static Sitting Balance Ability Good Dynamic Sitting Balance Ability Good Standing Balance and Reactions Static Standing Balance Ability Fair Dynamic Standing Balance Ability Fair Device Used without AD M5 PT-IP Objective Assessments Start: 05/25/19 15:37 Freq: NEEDED Status: Active Protocol: Document 05/25/19 14:30 AB (Rec: 05/25/19 16:11 AB [id number]) Orientation Orientation/Cognition Level of Alertness Alert Orientation Name,Age,Date,Year,Place, Situation Language Function Ability No Deficits Noted Safety Awareness Decreased Safety Awareness Gross Range of Motion Lower Extremity ROM Assessment Within Functional Limits Strength Lower Extremity Strength Assessment Bilaterally Impaired Hip 3+/5 Knee 3+/5 Sensation Assessment Sensation Gross Sensation WNL Muscle Tone Muscle Tone WNL Yes M6 PT-IP Treatment Start: 05/25/19 15:37 Freq: NEEDED Status: Active Protocol: Document 05/25/19 14:30 AB (Rec: 05/25/19 16:11 AB [id number]) Physical Therapy Treatment Education Education Provided Precautions,Safety M7 PT-IP Assessment and Plan Start: 05/25/19 15:37 Freq: NEEDED Status: Active Protocol: Document 05/25/19 14:30 AB (Rec: 05/25/19 16:11 AB [id number]) PT Summary Assessment and Plan Potential Rehabilitation Potential Good Status of Condition at Evaluation Evolving Summary Impairments Pain,ROM,Strength,Balance,Bed Mobility,Transfers,Gait, Activity Tolerance Assessment Summary pt requiring CGA with ambulation without AD but continues to have decrease activity tolerance with (+) SOb during mobility. O2 sat maintained at 92% with activity but with increase in MN to 121. pt plans to go home with her sister to assist her . will continue to work with PT to improve mobility. pt will also benefit from outpt cardiopulmonary rehab. Goals Bed Mobility Goal Independent Transfer Goal Independent,Four Wheeled Walker Gait Goal Independent,Four Wheel Walker Gait Distance 200 Other Goals to improve ambulation without AD mod I ~ 200 ft to be able to complete up/down 14 steps with B rails SBA Days to Meet Goals 10 Frequency of Treatment Frequency Of Treatment Once a Day Treatment Plan Physical Therapy Treatment Plan Bed Mobility Training,Transfer Training,Gait Training, Therapeutic Exercise,Balance Retraining,Discharge Planning, Neuromuscular Re-ed, Coordination Retraining Other Recommendations and Next Treatment ambulation using 4WW/without Focus AD, stair climbing when appropriate Recommendations To Nursing Amount of Assist Needed 1 Person Assist Discharge Recommendations PT Discharge Recommendations Home with Assistance, Outpatient PT Other Discharge Recommendations home with assist and outpt cardiopulmo rehab Transportation Needs at Discharge Private Vehicle
--- NOTE | 2019-05-25 14:49 | PM.PN.1 ---
Subjective Subjective Date Patient Seen: 05/25/19 Time Patient Seen: 14:49 Interval history: Leyda Nielsen is a 79-year-old female with past medical history of COPD on home O2, paroxysmal atrial fibrillation on Eliquis, psoriasis on Humira, and osteoporosis who presented after recommendation from her manager new product to the emergency room with dyspnea on exertion which at this time appears most likely due to acute decompensated heart failure, pending further evaluation. She is seen for follow-up today. This morning her carbon dioxide jump to 41 after aggressive diuresis. She was net negative approximately 2 L yesterday and again 2 L today. Diamox was added over concern for contraction alkalosis in the setting of her volume overload. Her creatinine did improve slightly with this diuresis from 1.4-1.3 today. Blood gas from this morning did show a pCO2 of 63, which is likely contributing to her metabolic alkalosis as well. She states that she was less dyspneic on exertion, but was not able to stand for more than 30 seconds without getting short of breath again. Current plan is to continue aggressive diuresis as well as physical therapy to assess her dyspnea on exertion. Exam Vital Signs (past 8 hours): - 05/25/19 08:52 05/25/19 09:30 05/25/19 14:01 Temperature 98.0 F 98.8 F Pulse Rate 106 H 92 H Respiratory Rate 16 20 22 Blood Pressure 110/69 108/42 L Pulse Oximetry 96 97 97 Oxygen Delivery Method Nasal Cannula Oxygen Flow Rate 1 Narrative Exam Narrative: GENERAL APPEARANCE: Obese female, in no acute distress SKIN: Inspection of the skin reveals no rashes, ulcerations or petechiae. HEENT: Moist mucous membranes, there is no rhinorrhea, no oral lesions. NECK: Supple and symmetric. There was no thyroid enlargement, and no tenderness, or masses were felt. CHEST: Normal AP diameter and normal contour without any kyphoscoliosis. LUNGS: Auscultation of the lungs revealed bibasilar crackles which are slightly improved today, improved breath sounds at the lung bases. Upper airways there are no wheezes rhonchi or rales. CARDIOVASCULAR: There was a regular rate and rhythm without any murmurs, gallops, rubs. Peripheral pulses were 2+ and symmetric. No JVD, but positive hepato-jugular reflex. ABDOMEN: Soft, obese, and nontender with normal bowel sounds. No ascites was noted. MUSCULOSKELETAL: There was no tenderness or effusions noted. Muscle strength and tone were normal. EXTREMITIES: No cyanosis, clubbing. There is pitting edema of her bilateral lower extremities which is markedly improved today, she also has upper extremity edema but it is not pitting consistent with possible anasarca. NEUROLOGIC: Alert and oriented x 3. Normal affect. Strength is +5/5 in the Upper Extremities and Lower Extremities Bilaterally. Sensation to touch was normal. Objective Labs Result Diagrams: 05/25/19 05:00 05/25/19 05:00 Labs: Laboratory Results - last 24 hr 05/24/19 05/24/19 05/24/19 14:57 14:57 14:57 WBC 9.1 RBC 3.83 L Hgb 12.8 Hct 37.3 MCV 97.4 MCH 33.3 MCHC 34.2 RDW 14.4 Plt Count 265 Neut % (Auto) 95.4 H Lymph % (Auto) 3.0 L [place] % (Auto) 1.3 L Eos % (Auto) 0.0 L Baso % (Auto) 0.3 Neut # (Auto) 8700 H Lymph # (Auto) 300 L [place] # (Auto) 100 Eos # (Auto) 0 Baso # (Auto) 0 PT 14.4 H INR 1.3 APTT 33 VBG pH VBG pCO2 VBG pO2 VBG HCO3 VBG Total CO2 VBG O2 Saturation VBG Base Excess Sodium 139 Potassium 4.4 Chloride 93 L Carbon Dioxide 38 H BUN 60 H Creatinine 1.40 H Estimated GFR 36.3 L BUN/Creatinine Ratio 42.9 H Glucose 195 H Calcium 10.5 H Phosphorus Magnesium Total Bilirubin 0.3 AST 24 ALT 17 Alkaline Phosphatase 79 Troponin I 0.016 NT-Pro-B Natriuret Pep 337 Total Protein 7.8 Albumin 4.4 Globulin 3.4 Albumin/Globulin Ratio 1.3 Lipase 162 TSH Urine Color Urine Appearance Urine pH Ur Specific [place] Urine Protein Urine Glucose (UA) Urine Ketones Urine Occult Blood Urine Nitrate Urine Bilirubin Urine Urobilinogen Ur Leukocyte Esterase Urine RBC Urine WBC Urine Bacteria Ur Culture Indicated? U Random Total Protein Urine Creatinine Protein/Creatinin Ratio 05/24/19 05/24/19 05/25/19 15:46 22:21 05:00 WBC 8.4 RBC 3.77 L Hgb 12.4 Hct 36.5 MCV 96.9 MCH 32.9 MCHC 34.0 RDW 14.4 Plt Count 245 Neut % (Auto) 76.8 H Lymph % (Auto) 12.9 L [place] % (Auto) 9.6 Eos % (Auto) 0.4 L Baso % (Auto) 0.3 Neut # (Auto) 6500 Lymph # (Auto) 1100 [place] # (Auto) 800 Eos # (Auto) 0 Baso # (Auto) 0 PT INR APTT VBG pH VBG pCO2 VBG pO2 VBG HCO3 VBG Total CO2 VBG O2 Saturation VBG Base Excess Sodium Potassium Chloride Carbon Dioxide BUN Creatinine Estimated GFR BUN/Creatinine Ratio Glucose Calcium Phosphorus Magnesium Total Bilirubin AST ALT Alkaline Phosphatase Troponin I NT-Pro-B Natriuret Pep Total Protein Albumin Globulin Albumin/Globulin Ratio Lipase TSH Urine Color Yellow Urine Appearance Clear Urine pH 6.5 Ur Specific [place] 1.015 Urine Protein Negative Urine Glucose (UA) Negative Urine Ketones Negative Urine Occult Blood Trace-intact Urine Nitrate Negative Urine Bilirubin Negative Urine Urobilinogen 0.2 Ur Leukocyte Esterase Trace H Urine RBC 0-1/hpf Urine WBC None seen Urine Bacteria None seen Ur Culture Indicated? Specimen cultured U Random Total Protein 10 Urine Creatinine 45.4 Protein/Creatinin Ratio 0.22 05/25/19 05/25/19 05/25/19 05:00 05:00 05:00 WBC RBC Hgb Hct MCV MCH MCHC RDW Plt Count Neut % (Auto) Lymph % (Auto) [place] % (Auto) Eos % (Auto) Baso % (Auto) Neut # (Auto) Lymph # (Auto) [place] # (Auto) Eos # (Auto) Baso # (Auto) PT INR APTT VBG pH 7.46 H VBG pCO2 63.4 H VBG pO2 72 H VBG HCO3 45 H VBG Total CO2 47 H VBG O2 Saturation 94 H VBG Base Excess 21.0 H Sodium 137 Potassium 3.5 Chloride 87 L Carbon Dioxide 41 H* BUN 59 H Creatinine 1.30 H Estimated GFR 39.5 L BUN/Creatinine Ratio 45.4 H Glucose 104 Calcium 10.3 H Phosphorus 3.7 Magnesium 1.9 Total Bilirubin AST ALT Alkaline Phosphatase Troponin I NT-Pro-B Natriuret Pep Total Protein Albumin Globulin Albumin/Globulin Ratio Lipase TSH 1.01 Urine Color Urine Appearance Urine pH Ur Specific [place] Urine Protein Urine Glucose (UA) Urine Ketones Urine Occult Blood Urine Nitrate Urine Bilirubin Urine Urobilinogen Ur Leukocyte Esterase Urine RBC Urine WBC Urine Bacteria Ur Culture Indicated? U Random Total Protein Urine Creatinine Protein/Creatinin Ratio Assessment & Plan Assessment & Plan narrative: Leyda Nielsen is a 79-year-old female with past medical history of COPD on home O2, paroxysmal atrial fibrillation on Eliquis, psoriasis on Humira, and osteoporosis who presented after recommendation from her manager new product to the emergency room with dyspnea on exertion which at this time appears most likely due to acute decompensated heart failure, pending further evaluation. 1. Acute on chronic hypoxemic and hypercarbic respiratory failure with dyspnea on exertion, present on admission -patient with baseline dyspnea on exertion limited to about 50 ft from her severe COPD. She is also on chronic home O2 but reports her oxygen requirements have increased at home from 1-2 L to now 3-4 over the past month and the patient further reports inability to ambulate at all due to severe shortness of breath. -at this time etiology is most likely acute decompensated heart failure given chest x-ray appearance, volume overload on exam, and recent 30 lb weight gain. Further differential includes possibly cor pulmonale or COPD exacerbation however this are felt unlikely at this time. -will continue IV diuresis with Lasix 100 mg every 8 hours, Aldactone at home dosing, and added Diamox today for worsening metabolic alkalosis. -obtain formal echocardiogram, this was unable to be performed today due to limited availability -try and obtain outside records from patient's manager new product -obtain viral respiratory panel, however this unlikely -respiratory therapy eval and treat -pending echocardiogram likely to recommend holding Humira as this can be a cause of acute heart failure. -continue home Aldactone -initial high sensitivity troponin is within normal limits, in a patient without chest pain or EKG changes this was not repeated. 2. Paroxysmal atrial fibrillation on anticoagulation, chronic, not present on admission -continue home apixaban -EKG on presentation was normal sinus rhythm with a right bundle branch block, unchanged from prior studies. 3. COPD on home O2, likely does not represent acute exacerbation -as noted above dyspnea on exertion is likely due to volume overload at this time. Will obtain viral panel to further assess, but will attempt diuresis 1st. She is not require steroids at this time. She takes home Spiriva and Symbicort, will replace here with formulary medications. -respiratory therapy eval and treat 4. Psoriasis on Humira, chronic, improved -patient reports Humira injections every 2 weeks, with last dose approximately week and half ago. Pending further evaluation above she may need to discontinue Humira and follow-up with her glazing superintendent if she has heart failure. She reports good response to Humira as far as her psoriasis. 5. Metabolic alkalosis, unclear chronicity, present on admission -there is likely a chronic component of this with hypercapnia seen on VBG. She has COPD and obesity which likely contributes to her hypercarbia. Her bicarb did jump from 34 to 41 today likely as result of the diuresis. Will add Diamox as patient still is volume overloaded to try and limit this alkalosis. Code: Full, does not have a specific surrogate decision maker, but elects to have her sons make decisions for her DVT: On apixaban Dispo: Patient changed to observation, anticipated discharge is in approximately 1-2 days depending on her dyspnea on exertion, she is still not quite back to her usual baseline..
[2019-05-25] MEDS: POTASSIUM CHLORIDE 20 MEQ TAB 40 MEQ PO (16:41)
[2019-05-25] MEDS: buPROPion XL 150 MG TAB PO (16:42)
[2019-05-25] MEDS: MONTELUKAST 10 MG TABLET PO (16:42)
--- NOTE | 2019-05-25 18:36 | PC.NURSE ---
Addendum entered by Crissy Masterson R.N. 05/25/19 21:31: Pt denies any discomfort. Tele shows NSR/BBB per ICU staff. HL LFA intact/patent, [place] cath patent clear light yellow urine. SpO2 96%, trilogy in place. Call light w/in raoul, bed alrm on for pt safety. Continue w/plan of care. Original Note: Pt sitting in chair, Denies any discomfort. HL LFA intact/patent. Lungs w/faint expiratory wheeze noted at bases. SpO2 96% on 1L NC Call light w/in reach, pt calls appropriately for needs.
[2019-05-25] MEDS: LATANOPROST 0.005% OPHTH 2.5 ML 1 DROPS EYE-BOTH (20:38)
[2019-05-26] VITALS (7 sets, daily range): BP systolic 96–132; BP diastolic 55–80; PULSE 84–94; RESP 16–92; TEMP 36.5–36.8; O2SAT 93–98
[2019-05-26 05:44] LABS: Add Manual Diff / Slide Review NO; Basophils Absolute Auto 0 /uL (0-100); Basophils Percent Auto 0.4 % (0-2); Eosinophils Absolute Auto 100 /uL (0-450); Eosinophils Percent Auto 1.3 % (2-4); Hemoglobin 13.7 g/dL (12.0-16.0); Lymphocytes Absolute Auto 1700 /uL (1100-4500); Lymphocytes Percent Auto 16.4 % (25-40); Mean Corpuscular HGB Conc 33.3 % (30-36); Mean Corpuscular Hemoglobin 32.8 PG (26-34); Mean Corpuscular Volume 98.5 fL (80-100); Monocytes Absolute Auto 1000 /uL (0-900); Monocytes Percent Auto 10.2 % (3-14); Neutrophils Absolute Auto 7400 /uL (1500-7000); Neutrophils Percent Auto 71.7 % (50-75); Platelet Count 247 X10^3/uL (150-400); Red Blood Cell Count 4.16 X10^6/uL (4.0-5.2); White Blood Cell Count 10.3 X10^3/uL (4.5-11.0)
[2019-05-26 05:50] LABS: BUN Creatinine Ratio 34.1 (6-22); Blood Urea Nitrogen 58 mg/dL (7-17); Calcium 10.3 mg/dL (8.4-10.2); Chloride 83 mmol/L (98-107); Glucose 121 mg/dL (80-110); HEMOLYSIS < 15 (0-50); Magnesium 1.8 mg/dL (1.6-2.3); Potassium 3.7 mmol/L (3.4-5.1); Sodium 136 mmol/L (137-145)
[2019-05-26 06:12] LABS: Carbon Dioxide 43 mmol/L (22-32)
[2019-05-26] MEDS: FUROSEMIDE 100 MG in SODIUM CHLORIDE 0.9% 50 ML 120 ML IV (06:25)
[2019-05-26] MEDS: CALCITONIN,SALMON, NASAL SPRAY 1 SPRAYS NASAL (09:58)
[2019-05-26] MEDS: APIXABAN 5 MG TABLET PO (09:58)
[2019-05-26] MEDS: FLUoxetine 20 MG CAPSULE PO (09:58)
[2019-05-26] MEDS: acetaZOLAMIDE 250 MG TABLET PO (09:58)
[2019-05-26] MEDS: FERROUS SULFATE 325 MG TABLET PO (09:58)
[2019-05-26] MEDS: POTASSIUM CHLORIDE 20 MEQ TAB 40 MEQ PO (09:59)
[2019-05-26] MEDS: FLUTICASONE 110MCG HFA 120 PUFF INH (09:59)
[2019-05-26] MEDS: SPIRONOLACTONE 25 MG TABLET 75 MG PO (10:00)
[2019-05-26] MEDS: SODIUM CHLORIDE 0.9% FLUSH 10 ML IV (10:00)
[2019-05-26] MEDS: ALBUTEROL/IPRATROPIUM 3 ML AMPUL INH (10:18)
--- NOTE | 2019-05-26 11:44 | PT.IPTN ---
Current Diagnoses Acute and chronic respiratory failure with hypoxia (05/24/19) Physical Therapy Treatment Note M2 PT-IP Current Condition Start: 05/25/19 15:37 Freq: NEEDED Status: Active Protocol: Document 05/25/19 14:30 AB (Rec: 05/25/19 16:11 AB [id number]) Physical Therapy Current Condition Current Condition Evaluation Date 05/25/19 Treatment Diagnosis CHF; difficulty in walking Onset Date 05/24/2019 Precautions Other Precautions O2 sat M3 PT-IP Subjective Start: 05/25/19 15:37 Freq: NEEDED Status: Active Protocol: Document 05/26/19 11:44 AB (Rec: 05/26/19 12:58 AB [id number]) Subjective Physical Therapy Visit Type Type Treatment Note Visit Start Time 11:44 Visit Stop Time 12:07 Total Visit Minutes 23 Number of PET RESORT CONCIERGE Visits 0 Physical Therapy Visit Comments Patient Comments c/o feeling tired but agreed to do PT M4 PT-IP Mobility and Gait Start: 05/25/19 15:37 Freq: NEEDED Status: Active Protocol: Document 05/26/19 11:44 AB (Rec: 05/26/19 12:58 AB [id number]) PT-Bed Mobility Assessment Supine to Sit Supine to Sit Standby Assistance,Head of Bed Elevated,Bedrails PT-Transfer Assessment Sit to and From Stand Sit to and from Stand Standby Assistance,1 Person Assistance,Use of Upper Extremities Equipment Transfer Assistive Device None,Gait Belt Transfers Transfer Destination Chair Transfer Technique Stand Step Pivot Transfer Ability Level of Assist Standby Assistance,1 Person Assistance,Use of Upper Extremities Comments Mobility Comments pt can be impulsive. completed bed mobility supine to sit with HOB elevated SBA. pt completed step transfer to the chair without AD SBA. O2 sat with O2 on maintained at 94-96% with activity, CO at rest 115 but increased to ~ 138 to 145 with activity. Gait Assessment Gait Gait Assistance Required: Standby Assistance Distance (Feet) 250 Able to Maintain Weight Bearing Status Yes During Gait Assistive Devices Assistive Device Gait Belt,4 Wheeled Walker Orthotic/Prosthetic Devices or Brace: No Gait Deviations General Gait Pattern Decreased Stride Length, Decreased Feet Clearance, Flexed Trunk Factors Limiting Gait Function Factors Limiting Gait Function Decreased Activity Tolerance, Decreased Strength,Poor Balance,Poor Safety Awareness, Respiratory Distress Comments Gait Comments ambulated in the hallway ~ 250 ft towards the stairs using 4WW SBA. complete up/down steps using bilateral rails SBA. pt only wanted to do 1 set . seated rest on 4WW and ambulated back to her room using 4WW SBA 250 ft. pt stated that she has a bench she can sit on midway up the stairs at home to rest. pt agreed to sit up on chair. positioned pt on chair. call light and table placed within reach. Stair Climbing Assessment Evaluation Level of Assist On Stairs Standby Assistance Devices Stair Climbing Assistive Devices Left Railing,Right Railing Technique/Endurance Stair Climbing Direction Ascend and Descend Stair Climbing Technique Step to Step Number of Steps Climbed 3 Stair Climbing Set # Repetitions (reps) 1 M5 PT-IP Objective Assessments Start: 05/25/19 15:37 Freq: NEEDED Status: Active Protocol: Document 05/25/19 14:30 AB (Rec: 05/25/19 16:11 AB [id number]) Orientation Orientation/Cognition Level of Alertness Alert Orientation Name,Age,Date,Year,Place, Situation Language Function Ability No Deficits Noted Safety Awareness Decreased Safety Awareness Gross Range of Motion Lower Extremity ROM Assessment Within Functional Limits Strength Lower Extremity Strength Assessment Bilaterally Impaired Hip 3+/5 Knee 3+/5 Sensation Assessment Sensation Gross Sensation WNL Muscle Tone Muscle Tone WNL Yes M6 PT-IP Treatment Start: 05/25/19 15:37 Freq: NEEDED Status: Active Protocol: Document 05/26/19 11:44 AB (Rec: 05/26/19 12:58 AB [id number]) Physical Therapy Treatment Education Education Provided Safety M7 PT-IP Assessment and Plan Start: 05/25/19 15:37 Freq: NEEDED Status: Active Protocol: Document 05/26/19 11:44 AB (Rec: 05/26/19 12:58 AB [id number]) PT Summary Assessment and Plan Potential Rehabilitation Potential Good Summary Impairments Pain,ROM,Strength,Balance, Coordination,Sensation,Tone, Cognition,Bed Mobility, Transfers,Gait,Activity Tolerance Progress Towards Goals Slow Progress due to Activity Tolerance Assessment Summary pt progressing slowly requiring SBA with mobility. pt plans to go home and family to assist her. pt will benefit from outpt cardiopulmo rehab to improve activity tolerance and mobility independence. Goals Bed Mobility Goal Independent Transfer Goal Independent,Four Wheeled Walker Gait Goal Independent,Four Wheel Walker Gait Distance 200 Other Goals to improve ambulation without AD mod I ~ 200 ft to be able to complete up/down 14 steps with B rails SBA Days to Meet Goals 10 Frequency of Treatment Frequency Of Treatment Once a Day Treatment Plan Physical Therapy Treatment Plan Bed Mobility Training,Transfer Training,Gait Training, Therapeutic Exercise,Balance Retraining,Discharge Planning, Neuromuscular Re-ed, Coordination Retraining Other Recommendations and Next Treatment ambulation using 4WW/without Focus AD, stair climbing when appropriate Recommendations To Nursing Amount of Assist Needed 1 Person Assist Discharge Recommendations PT Discharge Recommendations Home with Assistance, Outpatient PT Other Discharge Recommendations home with assist and outpt cardiopulmo rehab Transportation Needs at Discharge Private Vehicle
--- NOTE | 2019-05-26 12:31 | P.DS_ITS ---
History of Present Illness History of Present Illness Date Patient Seen: 05/26/19 Time Patient Seen: 08:45 Chief complaint: Needs fluids, bad breathing, sent from Dr Ayers: Leyda Nielsen is a 79-year-old female with past medical history of COPD on home O2, paroxysmal atrial fibrillation on Eliquis, psoriasis on Humira, and osteoporosis who presented after recommendation from her income tax investigator to the emergency room with dyspnea on exertion. Patient states that she is not short of breath at rest, but for the past month she is unable to really ambulate at all without shortness of breath. She has also gained approximately 30 lb over this time and reports both upper and lower extremity edema, although her edema is somewhat worse in her lower extremity. She takes Lasix and metolazone for her edema, but has been on this for the past year without any changes. She did not have a dosing change recently. She was recommended to come to the emergency room for diuresis as directed by her income tax investigator who she saw earlier today. She reports a slightly worsened cough from baseline, with white/thick sputum, but no recent fevers or chills. She denies any nasal congestion, headaches, muscle aches, or recent sick contacts. In the ED the patient had hypoxia with minimal exertion, but not at rest. She was given a dose of 80 mg of IV Lasix with no real change in the patient's symptoms. Chest x-ray showed cardiomegaly with bilateral hazy opacities consis tent with volume overload. EKG showed sinus rhythm with a right bundle branch block, which is old, without any significant morphology changes compared to her prior EKGs. Laboratory evaluation showed a WBC count of 9.1, but was otherwise unremarkable. Chemistries were notable for a creatinine of 1.4, last known was 0.8 in 2017, glucose of 195, calcium of 10.5 (corrected normal with albumin of 4.4), and a bicarb of 38, BNP of 337, troponin of 0.016. Patient was admitted to Medicine for likely acute decompensated CHF. Discharge Providers Provider Date of admission: 05/24/19 16:29 Discharge Date: 05/26/19 Primary care physician: Josue Menchaca DO Consults: 05/24/19 18:50 Consult to Respiratory Therapy Evaluate & Treat Comment: Physician Instructions: Evaluate and treat 05/25/19 11:05 Consult to Physical Therapy Evaluate & Treat Comment: Physician Instructions: Evaluate and Treat Discharge provider: Norman Cardenas DO Summary Hospital Course Discharge Diagnosis: Please see discharge summary by problem list noted below. Hospital Course: Leyda Nielsen is a 79-year-old female with past medical history of COPD on home O2, paroxysmal atrial fibrillation on Eliquis, psoriasis on Humira, and osteoporosis who presented after recommendation from her income tax investigator to the emergency room with dyspnea on exertion which at this time appears most likely due to acute decompensated heart failure, pending further evaluation. 1. Acute on chronic hypoxemic and hypercarbic respiratory failure with dyspnea on exertion, present on admission -patient with baseline dyspnea on exertion limited to about 50 ft from her severe COPD. She is also on chronic home O2 but reported her oxygen requirements had increased at home from 1-2 L to now 3-4 over the past month and the patient further reported inability to ambulate at all due to severe shortness of breath. This had improved markedly on the day of discharge, after diuresing 10 L since admission. -at this time etiology is most likely acute decompensated heart failure given chest x-ray appearance, volume overload on exam, and recent 30 lb weight gain. Further differential includes possibly cor pulmonale or COPD exacerbation however this are felt unlikely at this time. Based on her echocardiogram which was performed after aggressive diuresis, she most likely has diastolic heart failure based on her presentation. -patient did develop a contraction alkalosis, however this was after diuresing 1 0 L since admission. IV Lasix was discontinued on the day of discharge, patient was encouraged to continue p.o. Lasix at 100 mg b.i.d. with close eye on her weights. I also encouraged her to schedule follow-up lab visit with her primary care provider in the next few days. -echocardiogram showed a normal ejection fraction with no wall motion abnormalities. There was LVH. Her right systolic function was at the lower limits of normal. -respiratory panel negative -continue home Aldactone -initial high sensitivity troponin was within normal limits, given no chest pain or EKG changes this was not repeated. 2. Paroxysmal atrial fibrillation on anticoagulation, chronic, not present on admission -continue home apixaban -EKG on presentation was normal sinus rhythm with a right bundle branch block, unchanged from prior studies. 3. COPD on home O2, likely does not represent acute exacerbation -as noted above dyspnea on exertion is likely due to volume overload at this time. Will obtain viral panel to further assess, but will attempt diuresis 1st. She is not require steroids at this time. She takes home Spiriva and Symbicort, will replace here with formulary medications. -respiratory therapy eval and treat 4. Psoriasis on Humira, chronic, improved -patient reports Humira injections every 2 weeks, with last dose approximately week and half ago. I did recommend that she discuss possibly discontinuing Humira, and she will need to discuss this with her rehabilitation psychologist. 5. Metabolic alkalosis, unclear chronicity, present on admission -there is likely a chronic component of this with hypercapnia seen on VBG. She has COPD and obesity which likely contributes to her hypercarbia. Her bicarb did jump from 34 to 41 today likely as result of the diuresis. Will add Diamox as patient still is volume overloaded to try and limit this alkalosis. 6. Acute diastolic heart failure, present on admission -discussed above in problem 1. Exam Vital Signs (past 8 hours): - 05/26/19 05:00 05/26/19 07:40 05/26/19 09:25 Temperature 97.9 F 98.2 F 98.2 F Pulse Rate 92 H 94 H 84 Respiratory Rate 92 H 17 18 Blood Pressure 132/80 96/56 L 114/70 Pulse Oximetry 94 94 96 05/26/19 10:18 Temperature Pulse Rate 84 Respiratory Rate 20 Blood Pressure Pulse Oximetry 96 Oxygen Delivery Method Nasal Cannula Oxygen Flow Rate 2 Narrative Exam Narrative: GENERAL APPEARANCE: Obese female, in no acute distress SKIN: Inspection of the skin reveals no rashes, ulcerations or petechiae. HEENT: Moist mucous membranes, there is no rhinorrhea, no oral lesions. NECK: Supple and symmetric. There was no thyroid enlargement, and no tenderness, or masses were felt. CHEST: Normal AP diameter and normal contour without any kyphoscoliosis. LUNGS: Auscultation of the lungs revealed bibasilar crackles which are slightly improved today, improved breath sounds at the lung bases. Upper airways there are no wheezes rhonchi or rales. CARDIOVASCULAR: There was a regular rate and rhythm without any murmurs, gallops, rubs. Peripheral pulses were 2+ and symmetric. No JVD, but positive hepato-jugular reflex. ABDOMEN: Soft, obese, and nontender with normal bowel sounds. No ascites was noted. MUSCULOSKELETAL: There was no tenderness or effusions noted. Muscle strength and tone were normal. EXTREMITIES: No cyanosis, clubbing. There is pitting edema of her bilateral lower extremities which is markedly improved today, she also has upper extremity edema but it is not pitting consistent with possible anasarca. NEUROLOGIC: Alert and oriented x 3. Normal affect. Strength is +5/5 in the Upper Extremities and Lower Extremities Bilaterally. Sensation to touch was normal. Objective Labs Result Diagrams: 05/26/19 05:20 05/26/19 05:20 Labs: Laboratory Results - last 24 hr 05/26/19 05/26/19 05:20 05:20 WBC 10.3 RBC 4.16 Hgb 13.7 Hct 41.0 MCV 98.5 MCH 32.8 MCHC 33.3 RDW 14.0 Plt Count 247 Neut % (Auto) 71.7 Lymph % (Auto) 16.4 L [place] % (Auto) 10.2 Eos % (Auto) 1.3 L Baso % (Auto) 0.4 Neut # (Auto) 7400 H Lymph # (Auto) 1700 [place] # (Auto) 1000 H Eos # (Auto) 100 Baso # (Auto) 0 Sodium 136 L Potassium 3.7 Chloride 83 L Carbon Dioxide 43 H* BUN 58 H Creatinine 1.70 H Estimated GFR 29.0 L BUN/Creatinine Ratio 34.1 H Glucose 121 H Calcium 10.3 H Phosphorus 4.0 Magnesium 1.8 Discharge Plan Discharge Plan Patient Disposition: Home Discharge comment: You were admitted to the hospital with excess fluid. Your echocardiogram is currently awaiting a final read, but your symptoms improved with aggressive diuresis with IV Lasix. Your home dose of Lasix will be increased slightly to 100 mg twice a day, but you should potentially increased to 80 mg 3 times a day if you continue to gain weight on this dose. It looks like you may have had a little too much fluid taken off, and your creatinine bumped just slightly on discharge. Please call your primary care clinic and schedule a follow-up lab in the next 2-3 days to recheck your kidney function. Your creatinine upon discharge was 1.7. Discharge orders & Medications Prescriptions: New furosemide 20 mg tablet 100 mg PO BID 14 Days Qty: 140 RF: 0 Continued latanoprost 0.005 % drops 1 drp ophthalmic (eye) BEDTIME RF: 0 prednisone 20 mg tablet See Rx Instructions .ROUTE .COMPLEX RF: 0 metolazone 5 mg tablet 1.25 mg PO DAILY RF: 0 potassium chloride 20 mEq tablet,ER particles/crystals 40 meq PO DAILY RF: 0 montelukast 10 mg tablet 10 mg PO QPM RF: 0 fluoxetine 20 mg capsule 20 mg PO DAILY RF: 0 spironolactone 50 mg tablet 75 mg PO DAILY RF: 0 bupropion HCl 150 mg tablet extended release 24 hr 150 mg PO QPM RF: 0 budesonide-formoterol [Symbicort] 160-4.5 mcg/actuation HFA aerosol inhaler 1 inh INHALATION BID RF: 0 Spiriva Respimat 2.5 mcg/actuation mist 2 inh INHALATION DAILY RF: 0 Eliquis 5 mg tablet 5 mg PO BID RF: 0 acetaminophen 325 mg Tablet 650 mg PO Q6H PRN (Reason: pain) RF: 0 albuterol sulfate 1.25 mg/3 mL Solution For Nebulization 1.25 mg INHALATION Q6H PRN (Reason: Wheezing) RF: 0 melatonin 3 mg Tablet 3 mg PO BEDTIME PRN (Reason: Insomnia) RF: 0 calcitonin (salmon) 200 unit/actuation [place],Non-Aerosol 1 spray INTRANASAL (ALT) DAILY RF: 0 ferrous sulfate 325 mg (65 mg iron) Tablet 325 mg PO DAILY RF: 0 cholecalciferol (vitamin D3) [Vitamin D3] 125 mcg (5,000 unit) Tablet 5,000 unit PO DAILY RF: 0 albuterol sulfate 90 mcg/actuation Aerosol Powdr Breath Activated 2 inh INHALATION Q4H PRN (Reason: Shortness Of Breath) RF: 0 magnesium oxide 400 mg magnesium Tablet 400 mg PO DAILY RF: 0 Remus-3 1 cap PO DAILY RF: 0 levalbuterol HCl [Xopenex] 1.25 mg/3 mL Solution For Nebulization 1.25 mg INHALATION Q4H RF: 0 Discontinued furosemide 80 mg tablet 80 mg PO BID RF: 0 Humira(CF) Pen 40 mg/0.4 mL pen injector kit 0.4 mg SUBCUT Q2W RF: 0 Follow up/Referrals: Josue Menchaca DO [Primary Care Provider] - Diet/Activity/Treatments Diet: Diet as Tolerated Activity: As tolerated Oxygen: Continue to titrate oxygen to O2 saturation between 88-92%. Visit Report/Discharge Packet Visit Report Forms: Patient Portal/API, Stroke Signs & Symptoms Discharge Data Primary Care Provider: Josue Menchaca Attending Provider: Norman Cardenas Admflako Date/Time: 05/24/19 16:29 Discharges patient from system. Discharge Date/Time: 05/26/19 16:55
--- NOTE | 2019-05-26 14:57 | PC.NURSE ---
Fine crackles to Posterior RLL, clear to LLL; O2 1L=95% 2+ edema L>R; Case d/c at 1450; Tele [facility]; pt will call family when D/C paperwork complete, prefer 5 pm
== END 2019-05-26 16:55 | disposition home or self-care (01) ==
LOC: ED 16:11 → AC 16:58
PROVIDERS: Admitting Provider Internal Medicine; Emergency Provider Emergency Medicine; PCP Family Medicine; Referring Provider Emergency Medicine; Visit Provider Internal Medicine
DX: J96.21 Acute and chronic respiratory failure with hypoxia (principal); E87.4 Mixed disorder of acid-base balance; J44.9 Chronic obstructive pulmonary disease, unspecified; Z99.81 Dependence on supplemental oxygen; I48.0 Paroxysmal atrial fibrillation; Z79.01 Long term (current) use of anticoagulants; E66.9 Obesity, unspecified; L40.9 Psoriasis, unspecified
CPT/HCPCS: 36415; 51701; 71045; 76770; 80048; 80053; 81001; 82570; 82805; 83690; 83735; 83880; 84100; 84156; 84443; 84484; 85025; 85610; 85730; 87086; 93005; 93306; 94640; 94760; 96365; 96366; 97116; 97162; 97530; 99285; G0378; J1940; Q9957

== ENCOUNTER 2019-07-30 10:10 | Emergency (ER) | payer MEDICARE, OTHER, SELFPAY ==
[2019-05-24 17:43] VITALS: BMI 42.7
[2019-07-30 10:12] VITALS: BP 110/54; PULSE 88; RESP 18; TEMP 36.6; O2SAT 98
--- NOTE | 2019-07-30 10:30 | PC.NURSE ---
EMS reports that pt's children have been giving her their medications.
[2019-07-30 10:34] VITALS: BP 104/57; PULSE 79; RESP 13; O2SAT 96
--- NOTE | 2019-07-30 11:13 | DI.RAD.S_ITS ---
PROCEDURE: XR ANKLE RT MIN 3V INDICATIONS: ongoing cellulitis, r/o osteomyelitis TECHNIQUE: 3 views of the ankle were acquired. COMPARISON: None. FINDINGS: Bones: No fractures or dislocations. Ankle mortise is normally aligned. No suspicious bony lesions. No erosions. Soft tissues: Ankle edema is present. Achilles tendon appears normal. IMPRESSION: No erosions. No osteomyelitis. If clinical concern persists, MRI or bone scan is recommended. Dictated by: Daisy Araya M.D. on 07/30/2019 at 12:43 Approved by: Daisy Araya M.D. on 07/30/2019 at 12:44
--- NOTE | 2019-07-30 11:17 | ED.EXTPRO ---
HPI - Extremity Problem <Alivia RomoYAMILETH - Last Filed: 07/30/19 16:32> General Chief complaint: Extremity Problem,Nontraumatic Stated complaint: R Foot Parasthesia Time Seen by Provider: 07/30/19 11:06 Source: EMS Mode of arrival: EMS Limitations: no limitations History of Present Illness HPI Narrative: 79yo with a history of CHF, COPD, history of gout, use of chronic oxygen at home 2 L nasal cannula, presents emergency department complaining of right foot pain for the past few weeks. She states this started few weeks ago, she was seen by her primary care provider at [facility]. Patient's family reports she was given medications to treat her painful ankle including prednisone, she reported pain significantly improved. Then she noted a small area of redness, she had a tele health visit and was given a medication she does not recall the name of last week. Pain started to resolve and redness through smaller each day. However, yesterday she noted a significant increase in pain and was unable to bear weight on her right leg, patient also noted some mild tingling. Patient reports pain is a dull aching 8/10 that is worse with weight-bearing and movement, pain is worse on the medial aspect of her ankle. Today she noted increasing redness and swelling. Patient denies any other symptoms such as fevers, chills, chest pain, shortness of breath, abdominal pain, nausea, vomiting, diarrhea, or any other concerns. Patient states she usually walks around her house without any assistance, uses her walker for long walks. However, today and yesterday she is unable to bear weight on her leg with her walker. Related Data Home Medications Medication Instructions Recorded Confirmed Eliquis 5 mg PO BID 05/24/19 05/24/19 Inavale-3 1 cap PO DAILY 05/24/19 05/24/19 Spiriva Respimat 2 inh INHALATION DAILY 05/24/19 05/24/19 acetaminophen 650 mg PO Q6H PRN 05/24/19 05/24/19 albuterol sulfate 1.25 mg INHALATION Q6H PRN 05/24/19 05/24/19 albuterol sulfate 2 inh INHALATION Q4H PRN 05/24/19 05/24/19 budesonide-formoterol [Symbicort] 1 inh INHALATION BID 05/24/19 05/24/19 bupropion HCl 150 mg PO QPM 05/24/19 05/24/19 calcitonin (salmon) 1 spray INTRANASAL (ALT) DAILY 05/24/19 05/24/19 cholecalciferol (vitamin D3) 5,000 unit PO DAILY 05/24/19 05/24/19 [Vitamin D3] ferrous sulfate 325 mg PO DAILY 05/24/19 05/24/19 fluoxetine 20 mg PO DAILY 05/24/19 05/24/19 latanoprost 1 drp OPHTHALMIC (EYE) BEDTIME 05/24/19 05/24/19 levalbuterol HCl [Xopenex] 1.25 mg INHALATION Q4H 05/24/19 05/24/19 magnesium oxide 400 mg PO DAILY 05/24/19 05/24/19 melatonin 3 mg PO BEDTIME PRN 05/24/19 05/24/19 metolazone 1.25 mg PO DAILY 05/24/19 05/24/19 montelukast 10 mg PO QPM 05/24/19 05/24/19 potassium chloride 40 meq PO DAILY 05/24/19 05/24/19 prednisone See Rx Instructions .ROUTE .COMPLEX 05/24/19 05/24/19 spironolactone 75 mg PO DAILY 05/24/19 05/24/19 Previous Rx's Medication Instructions Recorded prednisone 40 mg PO DAILY #50 tab 07/30/19 Allergies Allergy/AdvReac Type Severity Reaction Status Date / Time Sulfa (Sulfonamide Allergy Intermediate Verified 07/30/19 10:17 Antibiotics) Review of Systems <YAMILETH Obando - Last Filed: 07/30/19 16:32> Review of Systems Narrative: REVIEW OF SYSTEMS: GENERAL: Denies fever or chills. HENT: No head trauma. CARDIOVASCULAR: No chest pain or syncope. RESPIRATORY: No shortness of breath or cough. GASTROINTESTINAL: No nausea, vomiting, diarrhea, or constipation. MUSCULOSKELETAL: Complains of right ankle pain and redness, see HPI. INTEGUMENTARY: No rash, lesions, or pruritus. NEURO: States she feels some tingling in her right foot occasionally, see HPI. PSYCH: No behavior or mood changes. Patient History <YAMILETH Obando - Last Filed: 07/30/19 16:32> Medical History Atrial fibrillation (Acute) Congestive heart failure (Acute) COPD (chronic obstructive pulmonary disease) (Acute) Social History household members: none Smoking Status: Former smoker alcohol intake: current Smoking Status: Former smoker alcohol intake frequency: a few times a week Substance Use Type: does not use Exam <YAMILETH Obando - Last Filed: 07/30/19 16:32> Initial Vital Signs Initial Vital Signs: Vital Signs Temperature 97.9 F 07/30/19 10:12 Pulse Rate 88 07/30/19 10:12 Respiratory Rate 18 07/30/19 10:12 Blood Pressure 110/54 L 07/30/19 10:12 Pulse Oximetry 98 07/30/19 10:12 PHYSICAL EXAMINATION: GENERAL: Well groomed, alert, and cooperative. Poor historian. Vital signs noted. HENT: Normocephalic, atraumatic. EYES: Symmetrical, sclera white, no periorbital swelling. CARDIOVASCULAR: S1 and S2 sounds normal. Regular rate and rhythm, no murmurs, clicks, or bruits. RESPIRATORY: Normal respiratory rate, trachea midline, airway patent. No stridor, nasal flaring or accessory muscle use. Lungs are clear in all simons. Patient is currently using 2 L of oxygen via nasal cannula which is her norm. MUSCULOSKELETAL: A large area of redness noted to the medial and anterior aspect of right ankle, area approximately 20cm by 8cm, area warm to touch, tender. Pedal pulses 2+ and equal bilaterally. Patient able to raise her leg and bend at knee, rotation of right ankle causes pain. No lesions or resolve. EXTREMITIES: CMS intact. 1+ pedal edema bilaterally. SKIN: Warm, dry, soft, appropriate color for ethnicity. Skin area as described above. NEURO: Alert and Oriented X 3. No sensory deficits. PSYCH: Appropriate affect and mood. <Fatou Ghotra DO - Last Filed: 07/30/19 16:37> Initial Vital Signs Initial Vital Signs: Vital Signs Temperature 97.9 F 07/30/19 10:12 Pulse Rate 88 07/30/19 10:12 Respiratory Rate 18 07/30/19 10:12 Blood Pressure 110/54 L 07/30/19 10:12 Pulse Oximetry 98 07/30/19 10:12 Course <Alivia RomoYAMILETH - Last Filed: 07/30/19 16:32> Course Course Narrative: Patient reported significant improvement in pain after foot was elevated for some time, she also reported improved pain after administration of Solu-Medrol. At this point patient was requesting to return home. Records obtained from [facility] from visit on 07/22/2019 indicating that patient was treated for gout and given a Solu-Medrol pack discussed. Patient was able to ambulate without significant pain before discharge. Orders Ordered: ED Orders 07/30/19 11:13 XR ankle RT min 3V Stat 07/30/19 12:03 C-Reactive Protein Quant Stat Complete Blood Count AUTO DIFF Stat Comprehensive Metabolic Panel Stat Erythrocyte Sedimentation Rate Stat Lactate (Lactic Acid) Stat Procalcitonin Stat Uric Acid Stat 07/30/19 12:13 Blood Culture Stat Discontinued Medications Methylprednisolone (Solu-Medrol 125 Mg Vial) 125 mg IV NOW ONE Stop: 07/30/19 13:06 Last Admin: 07/30/19 13:21 Dose: 125 mg Documented by: [facility] Consultations Consultation #1: Patient staffed with Dr. Ghotra. Vital Signs Vital signs: Vital Signs - 8 hr 07/30/19 10:12 07/30/19 10:34 07/30/19 11:33 Temperature 97.9 F Pulse Rate 88 79 87 Respiratory Rate 18 13 17 Blood Pressure 110/54 L Blood Pressure [Left Arm] 104/57 L 105/51 L Pulse Oximetry 98 96 97 07/30/19 12:40 07/30/19 14:11 Temperature Pulse Rate 98 H 88 Respiratory Rate 18 12 Blood Pressure 105/96 H Blood Pressure [Left Arm] 109/51 L Pulse Oximetry 93 96 <Fatou Ghotra DO - Last Filed: 07/30/19 16:37> Orders Ordered: ED Orders 07/30/19 11:13 XR ankle RT min 3V Stat 07/30/19 12:03 C-Reactive Protein Quant Stat Complete Blood Count AUTO DIFF Stat Comprehensive Metabolic Panel Stat Erythrocyte Sedimentation Rate Stat Lactate (Lactic Acid) Stat Procalcitonin Stat Uric Acid Stat 07/30/19 12:13 Blood Culture Stat Discontinued Medications Methylprednisolone (Solu-Medrol 125 Mg Vial) 125 mg IV NOW ONE Stop: 07/30/19 13:06 Last Admin: 07/30/19 13:21 Dose: 125 mg Documented by: CELIA Vital Signs Vital signs: Vital Signs - 8 hr 07/30/19 10:12 07/30/19 10:34 07/30/19 11:33 Temperature 97.9 F Pulse Rate 88 79 87 Respiratory Rate 18 13 17 Blood Pressure 110/54 L Blood Pressure [Left Arm] 104/57 L 105/51 L Pulse Oximetry 98 96 97 07/30/19 12:40 07/30/19 14:11 Temperature Pulse Rate 98 H 88 Respiratory Rate 18 12 Blood Pressure 105/96 H Blood Pressure [Left Arm] 109/51 L Pulse Oximetry 93 96 MDM - Extremity (Nontraumatic) <YAMILETH Obando - Last Filed: 07/30/19 16:32> Medical Records Attestation: I reviewed the patient's medical records. Lab Data Attestation: I reviewed the patient's lab results. Result diagrams: 07/30/19 12:03 07/30/19 12:03 Labs: Lab Results 07/30/19 07/30/19 07/30/19 Range/Units 12:03 12:03 12:03 WBC 7.9 (4.5-11.0) X10^3/uL RBC 3.16 L (4.0-5.2) X10^6/uL Hgb 10.2 L (12.0-16.0) g/dL Hct 30.6 L (36-46) % MCV 96.8 (80-100) fL MCH 32.3 (26-34) PG MCHC 33.3 (30-36) % RDW 13.9 (11.6-14.8) % Plt Count 311 (150-400) X10^3/uL Neut % (Auto) 76.4 H (50-75) % Lymph % (Auto) 9.8 L (25-40) % [place] % (Auto) 9.8 (3-14) % Eos % (Auto) 3.7 (2-4) % Baso % (Auto) 0.3 (0-2) % Neut # (Auto) 6000 (0959-8735) /uL Lymph # (Auto) 800 L (3326-0136) /uL [place] # (Auto) 800 (0-900) /uL Eos # (Auto) 300 (0-450) /uL Baso # (Auto) 0 (0-100) /uL ESR (0-20) MM/HR Sodium (137-145) mmol/L Potassium (3.4-5.1) mmol/L Chloride (98-107) mmol/L Carbon Dioxide (22-32) mmol/L BUN (7-17) mg/dL Creatinine (0.52-1.04) mg/dL Estimated GFR (>60) mL/min BUN/Creatinine Ratio (6-22) Glucose (80-110) mg/dL Lactate (0.7-2.1) mmol/L Uric Acid 12.2 H* (2.5-6.2) mg/dL Calcium (8.4-10.2) mg/dL Total Bilirubin (0.2-1.3) mg/dL AST (14-36) IU/L ALT (<35) IU/L Alkaline Phosphatase (38-126) U/L C-Reactive Protein (<1.0) mg/dL Total Protein (6.3-8.2) g/dL Albumin (3.5-5.0) g/dL Globulin (1.7-4.1) g/dL Albumin/Globulin Ratio (1.0-2.8) Procalcitonin 0.19 (<0.5) ng/mL 07/30/19 07/30/19 07/30/19 Range/Units 12:03 12:03 12:03 WBC (4.5-11.0) X10^3/uL RBC (4.0-5.2) X10^6/uL Hgb (12.0-16.0) g/dL Hct (36-46) % MCV (80-100) fL MCH (26-34) PG MCHC (30-36) % RDW (11.6-14.8) % Plt Count (150-400) X10^3/uL Neut % (Auto) (50-75) % Lymph % (Auto) (25-40) % [place] % (Auto) (3-14) % Eos % (Auto) (2-4) % Baso % (Auto) (0-2) % Neut # (Auto) (1169-7675) /uL Lymph # (Auto) (7062-5789) /uL [place] # (Auto) (0-900) /uL Eos # (Auto) (0-450) /uL Baso # (Auto) (0-100) /uL ESR > 140 H (0-20) MM/HR Sodium 136 L (137-145) mmol/L Potassium 4.5 (3.4-5.1) mmol/L Chloride 91 L (98-107) mmol/L Carbon Dioxide 38 H (22-32) mmol/L BUN 75 H (7-17) mg/dL Creatinine 1.39 H (0.52-1.04) mg/dL Estimated GFR 36.6 L (>60) mL/min BUN/Creatinine Ratio 54.0 H (6-22) Glucose 129 H (80-110) mg/dL Lactate 0.6 L (0.7-2.1) mmol/L Uric Acid (2.5-6.2) mg/dL Calcium 9.8 (8.4-10.2) mg/dL Total Bilirubin 0.6 (0.2-1.3) mg/dL AST 86 H (14-36) IU/L ALT 36 H (<35) IU/L Alkaline Phosphatase 171 H (38-126) U/L C-Reactive Protein (<1.0) mg/dL Total Protein 7.0 (6.3-8.2) g/dL Albumin 3.6 (3.5-5.0) g/dL Globulin 3.4 (1.7-4.1) g/dL Albumin/Globulin Ratio 1.1 (1.0-2.8) Procalcitonin (<0.5) ng/mL 07/30/19 Range/Units 12:03 WBC (4.5-11.0) X10^3/uL RBC (4.0-5.2) X10^6/uL Hgb (12.0-16.0) g/dL Hct (36-46) % MCV (80-100) fL MCH (26-34) PG MCHC (30-36) % RDW (11.6-14.8) % Plt Count (150-400) X10^3/uL Neut % (Auto) (50-75) % Lymph % (Auto) (25-40) % [place] % (Auto) (3-14) % Eos % (Auto) (2-4) % Baso % (Auto) (0-2) % Neut # (Auto) (2893-1176) /uL Lymph # (Auto) (3369-4183) /uL [place] # (Auto) (0-900) /uL Eos # (Auto) (0-450) /uL Baso # (Auto) (0-100) /uL ESR (0-20) MM/HR Sodium (137-145) mmol/L Potassium (3.4-5.1) mmol/L Chloride (98-107) mmol/L Carbon Dioxide (22-32) mmol/L BUN (7-17) mg/dL Creatinine (0.52-1.04) mg/dL Estimated GFR (>60) mL/min BUN/Creatinine Ratio (6-22) Glucose (80-110) mg/dL Lactate (0.7-2.1) mmol/L Uric Acid (2.5-6.2) mg/dL Calcium (8.4-10.2) mg/dL Total Bilirubin (0.2-1.3) mg/dL AST (14-36) IU/L ALT (<35) IU/L Alkaline Phosphatase (38-126) U/L C-Reactive Protein 21.5 H (<1.0) mg/dL Total Protein (6.3-8.2) g/dL Albumin (3.5-5.0) g/dL Globulin (1.7-4.1) g/dL Albumin/Globulin Ratio (1.0-2.8) Procalcitonin (<0.5) ng/mL Imaging Data Extremity x-ray #1: Radiologist's Impression: [address] [address] XRay Report Signed Patient: Leyda Nielsen [facility]#: [id number] : 1940Acct:[id number] Age/Sex: 79 / FDate of Service: 07/30/19 Loc: ED Accession Number: [id number] Procedure: XR ankle RT min 3V Ordering Provider: Alivia Romo PROCEDURE: XR ANKLE RT MIN 3V INDICATIONS: ongoing cellulitis, r/o osteomyelitis TECHNIQUE: 3 views of the ankle were acquired. COMPARISON: None. FINDINGS: Bones: No fractures or dislocations. Ankle mortise is normally aligned. No suspicious bony lesions. No erosions. Soft tissues: Ankle edema is present. Achilles tendon appears normal. IMPRESSION: No erosions. No osteomyelitis. If clinical concern persists, MRI or bone scan is recommended. Dictated by: Daisy Araya M.D. on 07/30/2019 at 12:43 Approved by: Daisy Araya M.D. on 07/30/2019 at 12:[address] [facility] Narrative Medical decision making narrative: 79yo female with a history of COPD, CHF, and has been previously treated for gout on her right ankle, presents emergency department for increasing right ankle pain and swelling. Patient was recently treated for gout on 07/21 with a Medrol Pack but reports emergency department for increased swelling and pain over the past 1-2 days. Increasing concern for cellulitis due to worsening pain, erythema, and swelling, x-ray was ordered and labs were drawn. However, laboratory results and imaging are more consistent with gout versus cellulitis or osteomyelitis. Patient had a Normal white count and lactic acid, x-ray negative for any concerns for osteomyelitis or fractures, elevated uric acid at 12.2, elevated C-reactive protein 21.5, and ESR > 140, lactic acid within normal limits, afebrile, non tachycardic, and well-appearing. Patient is also at increased risk for development of gout due to diuretics. She reported decreased pain after elevation of leg in the emergency department and initiation of Solu-Medrol. Patient was started on a longer taper of prednisone as she did report pain relief previously in the week and she is not a candidate for indomethacin or other NSAIDS due to compromised renal function. Patient was able to ambulate for discharge her decreasing concerns for other etiology such as osteomyelitis. Patient was encouraged to follow up with her primary care provider within the week due to multiple health issues and for re-evaluation of gout. Patient agreed to plan of care verbalized understanding. <Fatou Ghotra, DO - Last Filed: 07/30/19 16:37> Lab Data Labs: Lab Results 07/30/19 07/30/19 07/30/19 Range/Units 12:03 12:03 12:03 WBC 7.9 (4.5-11.0) X10^3/uL RBC 3.16 L (4.0-5.2) X10^6/uL Hgb 10.2 L (12.0-16.0) g/dL Hct 30.6 L (36-46) % MCV 96.8 (80-100) fL MCH 32.3 (26-34) PG MCHC 33.3 (30-36) % RDW 13.9 (11.6-14.8) % Plt Count 311 (150-400) X10^3/uL Neut % (Auto) 76.4 H (50-75) % Lymph % (Auto) 9.8 L (25-40) % [place] % (Auto) 9.8 (3-14) % Eos % (Auto) 3.7 (2-4) % Baso % (Auto) 0.3 (0-2) % Neut # (Auto) 6000 (4702-4370) /uL Lymph # (Auto) 800 L (8056-4763) /uL [place] # (Auto) 800 (0-900) /uL Eos # (Auto) 300 (0-450) /uL Baso # (Auto) 0 (0-100) /uL ESR (0-20) MM/HR Sodium (137-145) mmol/L Potassium (3.4-5.1) mmol/L Chloride (98-107) mmol/L Carbon Dioxide (22-32) mmol/L BUN (7-17) mg/dL Creatinine (0.52-1.04) mg/dL Estimated GFR (>60) mL/min BUN/Creatinine Ratio (6-22) Glucose (80-110) mg/dL Lactate (0.7-2.1) mmol/L Uric Acid 12.2 H* (2.5-6.2) mg/dL Calcium (8.4-10.2) mg/dL Total Bilirubin (0.2-1.3) mg/dL AST (14-36) IU/L ALT (<35) IU/L Alkaline Phosphatase (38-126) U/L C-Reactive Protein (<1.0) mg/dL Total Protein (6.3-8.2) g/dL Albumin (3.5-5.0) g/dL Globulin (1.7-4.1) g/dL Albumin/Globulin Ratio (1.0-2.8) Procalcitonin 0.19 (<0.5) ng/mL 07/30/19 07/30/19 07/30/19 Range/Units 12:03 12:03 12:03 WBC (4.5-11.0) X10^3/uL RBC (4.0-5.2) X10^6/uL Hgb (12.0-16.0) g/dL Hct (36-46) % MCV (80-100) fL MCH (26-34) PG MCHC (30-36) % RDW (11.6-14.8) % Plt Count (150-400) X10^3/uL Neut % (Auto) (50-75) % Lymph % (Auto) (25-40) % [place] % (Auto) (3-14) % Eos % (Auto) (2-4) % Baso % (Auto) (0-2) % Neut # (Auto) (0576-9325) /uL Lymph # (Auto) (6833-2039) /uL [place] # (Auto) (0-900) /uL Eos # (Auto) (0-450) /uL Baso # (Auto) (0-100) /uL ESR > 140 H (0-20) MM/HR Sodium 136 L (137-145) mmol/L Potassium 4.5 (3.4-5.1) mmol/L Chloride 91 L (98-107) mmol/L Carbon Dioxide 38 H (22-32) mmol/L BUN 75 H (7-17) mg/dL Creatinine 1.39 H (0.52-1.04) mg/dL Estimated GFR 36.6 L (>60) mL/min BUN/Creatinine Ratio 54.0 H (6-22) Glucose 129 H (80-110) mg/dL Lactate 0.6 L (0.7-2.1) mmol/L Uric Acid (2.5-6.2) mg/dL Calcium 9.8 (8.4-10.2) mg/dL Total Bilirubin 0.6 (0.2-1.3) mg/dL AST 86 H (14-36) IU/L ALT 36 H (<35) IU/L Alkaline Phosphatase 171 H (38-126) U/L C-Reactive Protein (<1.0) mg/dL Total Protein 7.0 (6.3-8.2) g/dL Albumin 3.6 (3.5-5.0) g/dL Globulin 3.4 (1.7-4.1) g/dL Albumin/Globulin Ratio 1.1 (1.0-2.8) Procalcitonin (<0.5) ng/mL 07/30/19 Range/Units 12:03 WBC (4.5-11.0) X10^3/uL RBC (4.0-5.2) X10^6/uL Hgb (12.0-16.0) g/dL Hct (36-46) % MCV (80-100) fL MCH (26-34) PG MCHC (30-36) % RDW (11.6-14.8) % Plt Count (150-400) X10^3/uL Neut % (Auto) (50-75) % Lymph % (Auto) (25-40) % [place] % (Auto) (3-14) % Eos % (Auto) (2-4) % Baso % (Auto) (0-2) % Neut # (Auto) (7523-0314) /uL Lymph # (Auto) (9899-1314) /uL [place] # (Auto) (0-900) /uL Eos # (Auto) (0-450) /uL Baso # (Auto) (0-100) /uL ESR (0-20) MM/HR Sodium (137-145) mmol/L Potassium (3.4-5.1) mmol/L Chloride (98-107) mmol/L Carbon Dioxide (22-32) mmol/L BUN (7-17) mg/dL Creatinine (0.52-1.04) mg/dL Estimated GFR (>60) mL/min BUN/Creatinine Ratio (6-22) Glucose (80-110) mg/dL Lactate (0.7-2.1) mmol/L Uric Acid (2.5-6.2) mg/dL Calcium (8.4-10.2) mg/dL Total Bilirubin (0.2-1.3) mg/dL AST (14-36) IU/L ALT (<35) IU/L Alkaline Phosphatase (38-126) U/L C-Reactive Protein 21.5 H (<1.0) mg/dL Total Protein (6.3-8.2) g/dL Albumin (3.5-5.0) g/dL Globulin (1.7-4.1) g/dL Albumin/Globulin Ratio (1.0-2.8) Procalcitonin (<0.5) ng/mL Discharge Plan Departure Patient Disposition: Home Clinical Impression: Gout Qualifiers: Gout site: ankle Gout etiology: drug-induced Chronicity: acute Laterality: right Qualified Code(s): M10.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 As discussed, your laboratory work and x-ray indicate that gout is most likely the cause your pain. We have given you a dose of steroid medication for today. I have written you a prescription for prednisone to start taking tomorrow, this will help decrease the pain, inflammation, and gout symptoms. This prescription will need to be tapered. Your dose will decrease toward the end. Please take 4 tabs daily for 5 days. Then take 3 tabs daily for 5 days, then take 2 tabs daily for 5 days, then take 1 tab daily for 5 days. Your prescription was sent to [facility] pharmacy in [place]. Please schedule an appointment with your primary care provider next few weeks for follow-up. Return emergency department for any new or worsening symptoms such as worsening pain, fevers, chest pain, worsening shortness of breath, vomiting, falls, or any other concerns. Prescriptions: New prednisone 10 mg tablet 40 mg PO DAILY Qty: 50 RF: 0 No Action latanoprost 0.005 % drops 1 drp ophthalmic (eye) BEDTIME RF: 0 prednisone 20 mg tablet See Rx Instructions .ROUTE .COMPLEX RF: 0 metolazone 5 mg tablet 1.25 mg PO DAILY RF: 0 potassium chloride 20 mEq tablet,ER particles/crystals 40 meq PO DAILY RF: 0 montelukast 10 mg tablet 10 mg PO QPM RF: 0 fluoxetine 20 mg capsule 20 mg PO DAILY RF: 0 spironolactone 50 mg tablet 75 mg PO DAILY RF: 0 bupropion HCl 150 mg tablet extended release 24 hr 150 mg PO QPM RF: 0 budesonide-formoterol [Symbicort] 160-4.5 mcg/actuation HFA aerosol inhaler 1 inh INHALATION BID RF: 0 Spiriva Respimat 2.5 mcg/actuation mist 2 inh INHALATION DAILY RF: 0 Eliquis 5 mg tablet 5 mg PO BID RF: 0 acetaminophen 325 mg Tablet 650 mg PO Q6H PRN (Reason: pain) RF: 0 albuterol sulfate 1.25 mg/3 mL Solution For Nebulization 1.25 mg INHALATION Q6H PRN (Reason: Wheezing) RF: 0 melatonin 3 mg Tablet 3 mg PO BEDTIME PRN (Reason: Insomnia) RF: 0 calcitonin (salmon) 200 unit/actuation [place],Non-Aerosol 1 spray INTRANASAL (ALT) DAILY RF: 0 ferrous sulfate 325 mg (65 mg iron) Tablet 325 mg PO DAILY RF: 0 cholecalciferol (vitamin D3) [Vitamin D3] 125 mcg (5,000 unit) Tablet 5,000 unit PO DAILY RF: 0 albuterol sulfate 90 mcg/actuation Aerosol Powdr Breath Activated 2 inh INHALATION Q4H PRN (Reason: Shortness Of Breath) RF: 0 magnesium oxide 400 mg magnesium Tablet 400 mg PO DAILY RF: 0 [place]-3 1 cap PO DAILY RF: 0 levalbuterol HCl [Xopenex] 1.25 mg/3 mL Solution For Nebulization 1.25 mg INHALATION Q4H RF: 0 Referrals: Josue Menchaca DO [Primary Care Provider] -
[2019-07-30 11:33] VITALS: BP 105/51; PULSE 87; RESP 17; O2SAT 97
[2019-07-30 12:14] LABS: Add Manual Diff / Slide Review NO; Basophils Absolute Auto 0 /uL (0-100); Basophils Percent Auto 0.3 % (0-2); Eosinophils Absolute Auto 300 /uL (0-450); Eosinophils Percent Auto 3.7 % (2-4); Hematocrit 30.6 % (36-46); Hemoglobin 10.2 g/dL (12.0-16.0); Lymphocytes Absolute Auto 800 /uL (1100-4500); Lymphocytes Percent Auto 9.8 % (25-40); Mean Corpuscular HGB Conc 33.3 % (30-36); Mean Corpuscular Hemoglobin 32.3 PG (26-34); Mean Corpuscular Volume 96.8 fL (80-100); Monocytes Absolute Auto 800 /uL (0-900); Monocytes Percent Auto 9.8 % (3-14); Neutrophils Absolute Auto 6000 /uL (1500-7000); Neutrophils Percent Auto 76.4 % (50-75); Platelet Count 311 X10^3/uL (150-400); Red Blood Cell Count 3.16 X10^6/uL (4.0-5.2); Red Cell Distribution Width 13.9 % (11.6-14.8); White Blood Cell Count 7.9 X10^3/uL (4.5-11.0)
[2019-07-30 12:30] LABS: Alanine Aminotransferase 36 IU/L (<35); Albumin 3.6 g/dL (3.5-5.0); Albumin Globulin Ratio 1.1 (1.0-2.8); Alkaline Phosphatase 171 U/L (38-126); Aspartate Aminotransferase 86 IU/L (14-36); Bilirubin Total 0.6 mg/dL (0.2-1.3); Blood Urea Nitrogen 75 mg/dL (7-17); Calcium 9.8 mg/dL (8.4-10.2); Chloride 91 mmol/L (98-107); Estimated Glomerular Filt Rate 36.6 mL/min (>60); Globulin 3.4 g/dL (1.7-4.1); Glucose 129 mg/dL (80-110); HEMOLYSIS < 15 (0-50); Potassium 4.5 mmol/L (3.4-5.1); Sodium 136 mmol/L (137-145)
[2019-07-30 12:31] LABS: Lactate (Lactic Acid) 0.6 mmol/L (0.7-2.1)
[2019-07-30 12:39] LABS: Carbon Dioxide 38 mmol/L (22-32)
[2019-07-30 12:40] VITALS: BP 109/51; PULSE 98; RESP 18; O2SAT 93
[2019-07-30 12:43] LABS: C-Reactive Protein Quant 21.5 mg/dL (<1.0); Procalcitonin 0.19 ng/mL (<0.5)
[2019-07-30 12:48] LABS: Uric Acid 12.2 mg/dL (2.5-6.2)
[2019-07-30 13:00] LABS: Erythrocyte Sedimentation Rate > 140 MM/HR (0-20)
[2019-07-30] MEDS: methylPREDNISolone 125 MG/2 ML VIAL IV (13:21)
[2019-07-30 14:11] VITALS: BP 105/96; PULSE 88; RESP 12; O2SAT 96
--- NOTE | 2019-07-30 14:14 | PC.NURSE ---
patient waiting in lobby on hospital portable oxygen while waiting for family to bring oxygen for dispo
== END 2019-07-30 14:15 | disposition home or self-care (01) ==
PROVIDERS: Emergency Provider Nurse Practitioner; PCP Family Medicine
DX: M10.271 Drug-induced gout, right ankle and foot (principal); J44.9 Chronic obstructive pulmonary disease, unspecified; I50.9 Heart failure, unspecified
CPT/HCPCS: 36415; 73610; 80053; 83605; 84145; 84550; 85025; 85651; 86140; 87040; 99284; J2930

== ENCOUNTER 2019-08-01 21:24 | Inpatient (IN) | payer MEDICARE, OTHER, SELFPAY ==
[2019-05-24 17:43] VITALS: BMI 42.7
[2019-08-01 21:31] VITALS: BP 140/67; PULSE 95; RESP 22; TEMP 36.5; O2SAT 95; BMI 47.2
--- NOTE | 2019-08-01 22:05 | ED_ITS ---
HPI - Fall General Chief Complaint: Fall Stated Complaint: GLF Time Seen by Provider: 08/01/19 21:55 Source: patient Mode of arrival: EMS Limitations: no limitations History of Present Illness HPI Narrative: Patient is a 79-year-old female who was brought in by EMS for evaluation of right ankle pain and also ground level fall. Patient is on anticoagulation for atrial fibrillation however she states she did not hit her head. Patient states she was transitioning from the seat that is on her walker however to her bed. She states that her arms started to tremor and she could not hold herself up with her arm so she slid down onto the ground landing on her bottom. She states she could not stand up. She states that she cannot put pressure on her right ankle secondary to pain. She states that the tremor in h er hands have started within the past couple days. She is unsure when this causing it. She states that earlier today he got to the point where she could not feed herself secondary to the tremor. She states that it is not present all the time. She states that it occurs when she is trying to do something with her hands like hold an object. She states she cannot control it. When her arms just resting the tremors not there. She is also having right ankle pain. Was seen here in the emergency department a couple days ago. Was diagnosed with gout. She states she has never had gout in her right ankle in the past. She has had a diagnosis of gout 1 time prior but that was in her right great toe. He states that during that visit she had x-rays performed and labs drawn. Was sent home with prednisone. Since then she states she feels like her right ankle symptoms have worsened. She feels like the swelling has worsened and the redness is worsening. Denies any fevers. Related Data Home Medications Medication Instructions Recorded Confirmed Eliquis 5 mg PO BID 05/24/19 08/02/19 Stites-3 1 cap PO DAILY 05/24/19 08/02/19 Spiriva Respimat 2 inh INHALATION DAILY 05/24/19 08/02/19 acetaminophen 650 mg PO Q6H PRN 05/24/19 08/02/19 albuterol sulfate 1.25 mg INHALATION Q6H PRN 05/24/19 08/02/19 albuterol sulfate 2 inh INHALATION Q4H PRN 05/24/19 08/02/19 budesonide-formoterol [Symbicort] 1 inh INHALATION BID 05/24/19 08/02/19 bupropion HCl 150 mg PO QPM 05/24/19 08/02/19 calcitonin (salmon) 1 spray INTRANASAL (ALT) DAILY 05/24/19 08/02/19 cholecalciferol (vitamin D3) 5,000 unit PO DAILY 05/24/19 08/02/19 [Vitamin D3] ferrous sulfate 325 mg PO DAILY 05/24/19 08/02/19 fluoxetine 20 mg PO DAILY 05/24/19 08/02/19 latanoprost 1 drp OPHTHALMIC (EYE) BEDTIME 05/24/19 08/02/19 levalbuterol HCl [Xopenex] 1.25 mg INHALATION Q4H 05/24/19 08/02/19 magnesium oxide 400 mg PO DAILY 05/24/19 08/02/19 melatonin 3 mg PO BEDTIME PRN 05/24/19 08/02/19 metolazone 1.25 mg PO DAILY 05/24/19 08/02/19 montelukast 10 mg PO QPM 05/24/19 08/02/19 potassium chloride 40 meq PO DAILY 05/24/19 08/02/19 prednisone See Rx Instructions .ROUTE .COMPLEX 05/24/19 08/02/19 spironolactone 75 mg PO DAILY 05/24/19 08/02/19 Previous Rx's Medication Instructions Recorded prednisone 40 mg PO DAILY #50 tab 07/30/19 Allergies Allergy/AdvReac Type Severity Reaction Status Date / Time Sulfa (Sulfonamide Allergy Intermediate Verified 07/30/19 10:17 Antibiotics) Review of Systems Constitutional Constitutional: Reports fatigue, Denies fever(s) and Denies headache(s) ENT Ears, Nose, Mouth, and Throat: Denies vertigo, Denies dizziness and Denies headache(s) Cardiovascular Cardiovascular: Denies chest pain and Denies dyspnea Respiratory Respiratory: Denies cough and Denies dyspnea Gastrointestinal Gastrointestinal: Denies abdominal pain, Denies nausea and Denies vomiting Genitourinary Genitourinary: Denies dysuria Musculoskeletal Comments: Right ankle pain Integumentary/Breasts Comments: Redness and swelling the right ankle Neurologic Neurologic: Denies behavioral changes, Denies burning sensations, Denies confusion, Denies vertigo, Denies dizziness, Denies headache(s) and Reports tremor(s) Psychiatric Psychiatric: Denies behavioral changes and Denies confusion Endocrine Endocrine: Reports fatigue Hematologic/Lymphatic Comments: On anticoagulation Allergic/Immunologic Allergic/Immunologic: Denies urticaria Patient History Medical History Atrial fibrillation (Acute) Congestive heart failure (Acute) COPD (chronic obstructive pulmonary disease) (Acute) Family History Mother Pneumonia Father Medical history unknown Sister Macular degeneration Social History household members: family Smoking Status: Former smoker alcohol intake: current Smoking Status: Former smoker alcohol intake frequency: a few times a week Substance Use Type: does not use Exam Initial Vital Signs Initial Vital Signs: Vital Signs Temperature 97.7 F 08/01/19 21:31 Pulse Rate 95 H 08/01/19 21:31 Respiratory Rate 22 08/01/19 21:31 Blood Pressure 140/67 08/01/19 21:31 Pulse Oximetry 95 08/01/19 21:31 Const General: cooperative, comfortable, well developed, well groomed and No acute distress Limitations: mental status not altered HENMT Head: normal to inspection and normocephalic Eyes Pupils: PERRL Chest Chest: normal inspection of the chest Resp Effort & Inspection: normal respiratory effort Auscultation: clear to auscultation bilaterally Cardio Rate: regular rate Pulses: radial pulses present and dorsalis pedis present on the right GI Inspection: non-distended Palpation: soft Back/Spine/Pelvis Cervical Spine: No collar present and No cervical spinal tenderness Thoracic/Lumbar Spine: No thoracic spinal tenderness and No lumbar spinal tenderness Skin Other: Patient with erythema from approximately mid foot of her right ankle circumferential to just proximal to her right ankle. There are no breaks in the skin. It is somewhat warm to the touch. Neuro General: alert, awake and oriented x3 Cranial Nerves: CN's II-XI intact bilaterally Cognition: normal cognition Speech: speech normal Motor: muscle tone normal throughout Other: Patient had 5/5 strength bilateral upper and lower extremities. Patient had no tremor with just holding her arms out however when I give her something to hold she did start to shake. She was unable to overcome the shaking. It was bilateral upper extremities however did appear to be right more than left. Extrem General: capillary refill normal Other: Patient able to flex and extend at the right ankle some discomfort Psych Appearance: grossly normal and well kempt Scores GCS [place] coma scale eye opening: Spontaneous [place] coma scale verbal response: Orientated [place] coma scale motor response: Obey commands Antonio coma scale total score: 15 Course Orders Ordered: ED Orders 08/01/19 22:07 CT head/brain wo con Stat 08/01/19 22:35 Lactate (Lactic Acid) Stat 08/01/19 23:00 C-Reactive Protein Quant Stat Complete Blood Count AUTO DIFF Stat Comprehensive Metabolic Panel Stat Erythrocyte Sedimentation Rate Stat Lipase Stat Partial Thromboplastin Time Stat Procalcitonin Stat Prothrombin Time INR Stat Uric Acid Stat 08/01/19 23:48 Consult to Orthopedic Surgery Stat 08/01/19 23:49 Blood Culture Stat Acetaminophen (Tylenol) 650 mg PO Q6HR PRN PRN Reason: Fever/Mild Pain (1-3) Albuterol (Ventolin Hfa) 2 puff INH Q4H PRN PRN Reason: Shortness Of Breath Apixaban (Eliquis) 5 mg PO BID CATHY Bupropion HCl (Wellbutrin Xl) 150 mg PO QPM [facility] Docusate Sodium (Colace) 100 mg PO BID [facility] Last Admin: 08/02/19 01:46 Dose: Not Given Documented by: KGALFRED Enoxaparin Sodium (Lovenox) 40 mg SUBCUT DAILY [facility] Fluoxetine HCl (Prozac) 20 mg PO DAILY [facility] Sodium Chloride (Normal Saline 0.9%) 1,000 mls @ 75 mls/hr IV CONT [facility] Last Admin: 08/02/19 01:29 Dose: 75 mls/hr Documented by: KGALFRED Ceftriaxone Sodium/Dextrose (Rocephin) 1 gm in 50 mls @ 100 mls/hr IV Q24H [facility] Vancomycin HCl 1,250 mg/ (Sodium Chloride) 250 mls @ 250 mls/hr IV Q12H [facility] Latanoprost (Xalatan 0.005% Ophth) 1 drops EYE-BOTH BEDTIME [facility] Melatonin (Melatonin) 3 mg PO BEDTIME PRN PRN Reason: Insomnia Metolazone (Metolazone) 1.25 mg PO DAILY [facility] Montelukast Sodium (Singulair) 10 mg PO QPM CATHY Morphine Sulfate (Morphine) 2 mg IV Q2H PRN PRN Reason: Pain, Severe (7-10) Last Admin: 08/02/19 03:08 Dose: 2 mg Documented by: SALLY Naloxone HCl (Narcan) 0.2 mg IV Q2MIN PRN PRN Reason: Opiate Reversal Non-Formulary Medication (Budesonide-Formoterol [Symbicort]) 1 inhalation INH RTBID CATHY Non-Formulary Medication (Tiotropium [place] [Spiriva Respimat]) 2 inhalation INH DAILY CATHY Ondansetron HCl (Zofran) 4 mg IV Q8HR PRN PRN Reason: Nausea And Vomiting Vancomycin HCl (Vancomycin Per Pharmacy) 1 request MISC NOW ONE Stop: 08/02/19 01:59 Vancomycin HCl (Vancomycin Trough) 1 request MISC NOW ONE Stop: 08/03/19 12:31 Discontinued Medications Vancomycin HCl (Vancomycin) 1,000 mg in 200 mls @ 200 mls/hr IV NOW ONE Stop: 08/02/19 00:48 Last Infusion: 08/02/19 02:20 Dose: 0 mls/hr Documented by: Admin: 08/02/19 01:17 Dose: 200 mls/hr Documented by: SALLY Ceftriaxone Sodium/Dextrose (Rocephin) 1 gm in 50 mls @ 100 mls/hr IV NOW ONE Stop: 08/02/19 00:18 Last Infusion: 08/02/19 01:05 Dose: 0 mls/hr Documented by: Admin: 08/02/19 00:31 Dose: 100 mls/hr Documented by: MARY Morphine Sulfate (Morphine) 2 mg IV NOW ONE Stop: 08/02/19 00:45 Last Admin: 08/02/19 00:46 Dose: 2 mg Documented by: RELLAPNawaf Morphine Sulfate (Morphine) 1 mg IV Q4HR PRN PRN Reason: Pain, Severe (7-10) Vital Signs Vital signs: Vital Signs - 8 hr 08/01/19 21:31 Temperature 97.7 F Pulse Rate 95 H Respiratory Rate 22 Blood Pressure 140/67 Pulse Oximetry 95 MDM - Fall Medical Records Attestation: I reviewed the patient's medical records. Lab Data Attestation: I reviewed the patient's lab results. Result diagrams: 08/01/19 23:00 08/01/19 23:00 Labs: Lab Results 08/01/19 08/01/19 08/01/19 Range/Units 22:35 23:00 23:00 WBC 32.4 H* (4.5-11.0) X10^3/uL RBC 2.77 L (4.0-5.2) X10^6/uL Hgb 8.8 L (12.0-16.0) g/dL Hct 27.0 L (36-46) % MCV 97.5 (80-100) fL MCH 31.7 (26-34) PG MCHC 32.5 (30-36) % RDW 14.0 (11.6-14.8) % Plt Count 357 (150-400) X10^3/uL Neut % (Auto) Not Reportable Lymph % (Auto) Not Reportable Parmer % (Auto) Not Reportable Eos % (Auto) Not Reportable Baso % (Auto) Not Reportable Lymph # (Auto) Not Reportable Parmer # (Auto) Not Reportable Baso # (Auto) Not Reportable Total Counted 100 Seg Neutrophils % 78.0 H (38-70) % Band Neutrophils % 19.0 H (3-7) % Monocytes % (Manual) 2.0 (2-11) % Metamyelocytes % 1.0 H (-0) % Neutrophils # (Manual) 31723 H (4761-4085) /uL RBC Morphology Normal morphology ESR > 140 H (0-20) MM/HR PT 22.5 H (10.1-12.7) SECONDS INR 2.0 H (0.9-1.3) APTT 37 H D (26.4-36.2) SECONDS Sodium (137-145) mmol/L Potassium (3.4-5.1) mmol/L Chloride (98-107) mmol/L Carbon Dioxide (22-32) mmol/L BUN (7-17) mg/dL Creatinine (0.52-1.04) mg/dL Estimated GFR (>60) mL/min BUN/Creatinine Ratio (6-22) Glucose (80-110) mg/dL Hemoglobin A1c (4.0-6.0) % Lactate 1.5 (0.7-2.1) mmol/L Uric Acid (2.5-6.2) mg/dL Calcium (8.4-10.2) mg/dL Total Bilirubin (0.2-1.3) mg/dL AST (14-36) IU/L ALT (<35) IU/L Alkaline Phosphatase (38-126) U/L C-Reactive Protein (<1.0) mg/dL Total Protein (6.3-8.2) g/dL Albumin (3.5-5.0) g/dL Globulin (1.7-4.1) g/dL Albumin/Globulin Ratio (1.0-2.8) Lipase (23-300) U/L Procalcitonin (<0.5) ng/mL 08/01/19 08/01/19 08/01/19 Range/Units 23:00 23:00 23:00 WBC (4.5-11.0) X10^3/uL RBC (4.0-5.2) X10^6/uL Hgb (12.0-16.0) g/dL Hct (36-46) % MCV (80-100) fL MCH (26-34) PG MCHC (30-36) % RDW (11.6-14.8) % Plt Count (150-400) X10^3/uL Neut % (Auto) Lymph % (Auto) Parmer % (Auto) Eos % (Auto) Baso % (Auto) Lymph # (Auto) Parmer # (Auto) Baso # (Auto) Total Counted Seg Neutrophils % (38-70) % Band Neutrophils % (3-7) % Monocytes % (Manual) (2-11) % Metamyelocytes % (-0) % Neutrophils # (Manual) (0917-7305) /uL RBC Morphology ESR (0-20) MM/HR PT (10.1-12.7) SECONDS INR (0.9-1.3) APTT (26.4-36.2) SECONDS Sodium 134 L (137-145) mmol/L Potassium 5.5 H (3.4-5.1) mmol/L Chloride 93 L (98-107) mmol/L Carbon Dioxide 38 H (22-32) mmol/L BUN 91 H (7-17) mg/dL Creatinine 1.82 H (0.52-1.04) mg/dL Estimated GFR 26.8 L (>60) mL/min BUN/Creatinine Ratio 50.0 H (6-22) Glucose 184 H (80-110) mg/dL Hemoglobin A1c (4.0-6.0) % Lactate (0.7-2.1) mmol/L Uric Acid 12.9 H* (2.5-6.2) mg/dL Calcium 10.0 (8.4-10.2) mg/dL Total Bilirubin 0.4 (0.2-1.3) mg/dL AST 40 H (14-36) IU/L ALT 49 H (<35) IU/L Alkaline Phosphatase 193 H (38-126) U/L C-Reactive Protein 36.6 H (<1.0) mg/dL Total Protein 7.0 (6.3-8.2) g/dL Albumin 3.4 L (3.5-5.0) g/dL Globulin 3.6 (1.7-4.1) g/dL Albumin/Globulin Ratio 0.9 L (1.0-2.8) Lipase 18 L (23-300) U/L Procalcitonin 4.93 H (<0.5) ng/mL 08/01/19 Range/Units 23:00 WBC (4.5-11.0) X10^3/uL RBC (4.0-5.2) X10^6/uL Hgb (12.0-16.0) g/dL Hct (36-46) % MCV (80-100) fL MCH (26-34) PG MCHC (30-36) % RDW (11.6-14.8) % Plt Count (150-400) X10^3/uL Neut % (Auto) Lymph % (Auto) Parmer % (Auto) Eos % (Auto) Baso % (Auto) Lymph # (Auto) Parmer # (Auto) Baso # (Auto) Total Counted Seg Neutrophils % (38-70) % Band Neutrophils % (3-7) % Monocytes % (Manual) (2-11) % Metamyelocytes % (-0) % Neutrophils # (Manual) (0893-5763) /uL RBC Morphology ESR (0-20) MM/HR PT (10.1-12.7) SECONDS INR (0.9-1.3) APTT (26.4-36.2) SECONDS Sodium (137-145) mmol/L Potassium (3.4-5.1) mmol/L Chloride (98-107) mmol/L Carbon Dioxide (22-32) mmol/L BUN (7-17) mg/dL Creatinine (0.52-1.04) mg/dL Estimated GFR (>60) mL/min BUN/Creatinine Ratio (6-22) Glucose (80-110) mg/dL Hemoglobin A1c 5.4 (4.0-6.0) % Lactate (0.7-2.1) mmol/L Uric Acid (2.5-6.2) mg/dL Calcium (8.4-10.2) mg/dL Total Bilirubin (0.2-1.3) mg/dL AST (14-36) IU/L ALT (<35) IU/L Alkaline Phosphatase (38-126) U/L C-Reactive Protein (<1.0) mg/dL Total Protein (6.3-8.2) g/dL Albumin (3.5-5.0) g/dL Globulin (1.7-4.1) g/dL Albumin/Globulin Ratio (1.0-2.8) Lipase (23-300) U/L Procalcitonin (<0.5) ng/mL Imaging Data CT scan - head: Radiologist's Impression: Normal CT the head MDM Narrative Medical decision making narrative: Unsure the exact etiology of the tremor. I do have low suspicion for CVA. She states this is just started over the past couple days. Her head CT was unremarkable. Rest of her neurologic exam was relatively unremarkable. Patient was afebrile upon arrival a review of the patient's note does state she was discharged home on prednisone for presumed diagnosis of gout in her right ankle. Do have some suspicion that this potkira vazquez could be an infection given her elevated white blood cell count however this is also in the setting that she has been taking prednisone for the past couple days. Infection is also concerned because of her elevated procalcitonin. Also potentially concerned because her symptoms have been worsening over the past couple days despite the prednisone which I suspect would have helped a gout issue. The still potentially could be gout. She does have an elevated uric acid. Also considered cellulitis. Also considered septic joint. I did discuss the case with orthopedics who stated that if her ankle was read that performing an arthrocentesis would not be warranted for the concern of potentially introducing an infection. He recommended starting patient on antibiotics and admitted to the medicine team and they would follow tomorrow. Patient was given Rocephin and vancomycin. I discussed the case with NAOMI Cross the [facility] provider who evaluated the patient in the emergency department who will admit for further evaluation and treatment. Discharge Plan Departure Patient Disposition: Admitted As Inpatient Clinical Impression: Tremor Cellulitis Qualifiers: Site of cellulitis: extremity Site of cellulitis of extremity: lower extremity Laterality: right Qualified Code(s): L03.115 - Cellulitis of right lower limb Discharge Date/Time: 08/02/19 01:10 Admit Date/Time: 08/01/19 23:57 Admit Provider: Reina Cross
--- NOTE | 2019-08-01 22:07 | DI.CT.S_ITS ---
PROCEDURE: CT HEAD/BRAIN WO CON INDICATIONS: Bilateral upper extremity tremors TECHNIQUE: Noncontrast 4.5 mm thick angled axial sections acquired from the foramen magnum to the vertex, with coronal and sagittal reformats. For radiation dose reduction, the following was used: automated exposure control, adjustment of mA and/or kV according to patient size. COMPARISON: None. FINDINGS: Image quality: Excellent. CSF spaces: Basal cisterns are patent. No extra-axial fluid collections. The ventricles are symmetric in size and shape. Brain: No intracranial bleeds or masses. There is cerebral volume loss for age, with resultant ventricular and sulcal prominence. There are periventricular and deep white matter chronic small vessel ischemic changes. There is intracranial internal carotid artery atherosclerosis. Skull and face: Calvarium and visualized facial bones appear intact, without suspicious lesions. Sinuses: Visualized sinuses and mastoids are clear. IMPRESSION: No acute intracranial disease process. Dictated by: Evelyne John MD, PhD on 08/02/2019 at 8:00 Approved by: Evelyne John MD, PhD on 08/02/2019 at 8:01
[2019-08-01 22:55] LABS: Lactate (Lactic Acid) 1.5 mmol/L (0.7-2.1)
[2019-08-01 23:15] LABS: Prothrombin Time 22.5 SECONDS (10.1-12.7)
[2019-08-01 23:17] LABS: Hemoglobin 8.8 g/dL (12.0-16.0); Mean Corpuscular HGB Conc 32.5 % (30-36); Mean Corpuscular Hemoglobin 31.7 PG (26-34); Mean Corpuscular Volume 97.5 fL (80-100); Platelet Count 357 X10^3/uL (150-400); Red Blood Cell Count 2.77 X10^6/uL (4.0-5.2)
[2019-08-01 23:18] LABS: PTT Partial Thromboplastin Tim 37 SECONDS (26.4-36.2)
[2019-08-01 23:21] LABS: Alanine Aminotransferase 49 IU/L (<35); Albumin 3.4 g/dL (3.5-5.0); Albumin Globulin Ratio 0.9 (1.0-2.8); Alkaline Phosphatase 193 U/L (38-126); Aspartate Aminotransferase 40 IU/L (14-36); Bilirubin Total 0.4 mg/dL (0.2-1.3); Blood Urea Nitrogen 91 mg/dL (7-17); Carbon Dioxide 38 mmol/L (22-32); Chloride 93 mmol/L (98-107); Estimated Glomerular Filt Rate 26.8 mL/min (>60); Globulin 3.6 g/dL (1.7-4.1); Glucose 184 mg/dL (80-110); HEMOLYSIS < 15 (0-50); Lipase 18 U/L (23-300); Potassium 5.5 mmol/L (3.4-5.1); Sodium 134 mmol/L (137-145)
[2019-08-01 23:25] LABS: Add Manual Diff / Slide Review YES; White Blood Cell Count 32.4 X10^3/uL (4.5-11.0)
[2019-08-01 23:31] LABS: Erythrocyte Sedimentation Rate > 140 MM/HR (0-20)
[2019-08-01 23:36] LABS: Procalcitonin 4.93 ng/mL (<0.5)
[2019-08-01 23:56] LABS: Uric Acid 12.9 mg/dL (2.5-6.2)
[2019-08-01 23:59] LABS: C-Reactive Protein Quant 36.6 mg/dL (<1.0)
[2019-08-02] VITALS (11 sets, daily range): BP systolic 102–140; BP diastolic 45–84; PULSE 83–125; RESP 14–22; TEMP 36.7–37.4; O2SAT 92–99; BMI 47.2
[2019-08-02 00:06] LABS: Neutrophils Absolute Manual 31428 /uL (3000-5900); Total Cells Counted 100
[2019-08-02 00:07] LABS: RBC Morphology Normal Morphology
[2019-08-02] MEDS: CEFTRIAXONE 1 GM/50 ML FROZ.PIGGY IV (00:31)
[2019-08-02] MEDS: MORPHINE 2 MG/ML INJ IV ×3 (00:46→07:16)
[2019-08-02] MEDS: VANCOMYCIN 1,000 MG/200 ML PIGGYBACK 200 MG IV (01:17)
[2019-08-02] MEDS: SODIUM CHLORIDE 0.9% 1,000 ML 75 ML IV ×3 (01:29→19:02)
--- NOTE | 2019-08-02 01:30 | P.HP_ITS ---
History of Present Illness History of Present Illness Date Patient Seen: 08/02/19 Time Patient Seen: 00:10 Chief complaint: GLF Narrative: Leyda Nielsen is a 79-year-old oxygen-dependent female with paroxysmal atrial fibrillation, chronic CHF, COPD and plaque psoriasis who came into the emergency department with a complaint of a gout attack of her right foot and ankle. She denies fevers sweats or chills. She is unable to bear weight on it. She actually has some new neurological symptoms of a ?intention tremor? that worsens with voluntary movement. For example her leg will give out on her, today she was able to eat without repeatedly dropping her food because she was shaking so much. She denies chest pain, she has chronic shortness of breath, denies nausea vomiting, abdominal pain, dysuria, diarrhea or constipation. Orthopedics was asked to see the patient by the ED with the possibility of performing a joint tap. Due to the patient's cutaneous erythema, surgery was reluctant to possibly introduce a cellulitis into the patient's joint. Patient does have an elevated uric acid as well as ESR and CRP. Her white count is 32.4. She is on that the celery tier of a prednisone taper she was put on for a gout attack at [facility] on July 21. In May of this year she was admitted for a suspected CHF exacerbation where she underwent an echocardiogram as well as a renal ultrasound. The echo indicated a normal ejection fraction with thickening of the left ventricle and a lowered pulmonary pressure. Renal ultrasound did not indicate structural renal disease but possible medical renal disease. Patient History Medical History Atrial fibrillation (Acute) Congestive heart failure (Acute) COPD (chronic obstructive pulmonary disease) (Acute) Family & Social History Family History Mother Pneumonia Father Medical history unknown Sister Macular degeneration Social History: household members family Prior Living Arrangements House Safety & Behavioral: Feels Safe in Current Yes Environment Been Physically Hurt or No Threatened By a Person Suicidal Ideation Description None Suicide Plan Description No Plan Tobacco & Substance use: Smoking Status Former smoker, quit 45 years ago alcohol intake glass of wine daily alcohol intake frequency a few times a week Substance Use Type does not use Meds Home Medications and Allergies Home Medications Medication Instructions Recorded Confirmed Type Eliquis 5 mg PO BID 05/24/19 08/02/19 History [place]-3 1 cap PO DAILY 05/24/19 08/02/19 History Spiriva Respimat 2 inh INHALATION DAILY 05/24/19 08/02/19 History acetaminophen 650 mg PO Q6H PRN 05/24/19 08/02/19 History albuterol sulfate 1.25 mg INHALATION Q6H PRN 05/24/19 08/02/19 History albuterol sulfate 2 inh INHALATION Q4H PRN 05/24/19 08/02/19 History budesonide-formoterol [Symbicort] 1 inh INHALATION BID 05/24/19 08/02/19 History bupropion HCl 150 mg PO QPM 05/24/19 08/02/19 History calcitonin (salmon) 1 spray INTRANASAL (ALT) DAILY 05/24/19 08/02/19 History cholecalciferol (vitamin D3) 5,000 unit PO DAILY 05/24/19 08/02/19 History [Vitamin D3] ferrous sulfate 325 mg PO DAILY 05/24/19 08/02/19 History fluoxetine 20 mg PO DAILY 05/24/19 08/02/19 History latanoprost 1 drp OPHTHALMIC (EYE) BEDTIME 05/24/19 08/02/19 History levalbuterol HCl [Xopenex] 1.25 mg INHALATION Q4H 05/24/19 08/02/19 History magnesium oxide 400 mg PO DAILY 05/24/19 08/02/19 History melatonin 3 mg PO BEDTIME PRN 05/24/19 08/02/19 History metolazone 1.25 mg PO DAILY 05/24/19 08/02/19 History montelukast 10 mg PO QPM 05/24/19 08/02/19 History potassium chloride 40 meq PO DAILY 05/24/19 08/02/19 History prednisone See Rx Instructions .ROUTE .COMPLEX 05/24/19 08/02/19 History spironolactone 75 mg PO DAILY 05/24/19 08/02/19 History prednisone 40 mg PO DAILY #50 tab 07/30/19 08/02/19 Rx Allergies Allergy/AdvReac Type Severity Reaction Status Date / Time Sulfa (Sulfonamide Allergy Intermediate Verified 07/30/19 10:17 Antibiotics) Review of Systems Review of Systems ROS: Yes All systems reviewed with the patient and are negative except as otherwise documented Exam Vital Signs (past 8 hours): - 08/01/19 21:31 08/02/19 00:36 08/02/19 01:11 Temperature 97.7 F 98.0 F Pulse Rate 95 H 89 83 Respiratory Rate 22 14 18 Blood Pressure 140/67 122/45 L Blood Pressure [Right Arm] 140/67 Pulse Oximetry 95 97 94 Oxygen Delivery Method Nasal Cannula Oxygen Flow Rate 3 Narrative Exam Narrative: Gen: Alert, oriented, morbidly obese 79 y.o. female, HEENT: normocephalic, atraumatic, conjunctiva clear, sclera non-icteric, oral mucosa is dry Neck: supple, full ROM, no JVD, trachea is midline Resp: Lungs CTA, non-labored breathing CV: RRR, no murmur or rubs Abd: obese soft, non-tender, normoactive BTs Skin: Edema of upper extremities with poor turgor, bruises on forearms. Right foot is erythematous in the ankle and forefoot, +2 non-pitting bilateral LE, appears to have a 2cm diameter superficial abrasion on right upper posterior thigh Neuro: Alert and oriented X 4 w/no focal deficits Extremities: Unable to weight bear, right worse than left, negative Nelly?s sign Psyche: childlike affect. Objective Labs Result Diagrams: 08/01/19 23:00 08/01/19 23:00 Labs: Laboratory Results - last 24 hr 08/01/19 08/01/19 08/01/19 22:35 23:00 23:00 WBC 32.4 H* RBC 2.77 L Hgb 8.8 L Hct 27.0 L MCV 97.5 MCH 31.7 MCHC 32.5 RDW 14.0 Plt Count 357 Neut % (Auto) Not Reportable Lymph % (Auto) Not Reportable [place] % (Auto) Not Reportable Eos % (Auto) Not Reportable Baso % (Auto) Not Reportable Lymph # (Auto) Not Reportable [place] # (Auto) Not Reportable Baso # (Auto) Not Reportable Total Counted 100 Seg Neutrophils % 78.0 H Band Neutrophils % 19.0 H Monocytes % (Manual) 2.0 Metamyelocytes % 1.0 H Neutrophils # (Manual) 51266 H RBC Morphology Normal morphology ESR > 140 H PT 22.5 H INR 2.0 H APTT 37 H D Sodium Potassium Chloride Carbon Dioxide BUN Creatinine Estimated GFR BUN/Creatinine Ratio Glucose Lactate 1.5 Uric Acid Calcium Total Bilirubin AST ALT Alkaline Phosphatase C-Reactive Protein Total Protein Albumin Globulin Albumin/Globulin Ratio Lipase Procalcitonin 08/01/19 08/01/19 08/01/19 23:00 23:00 23:00 WBC RBC Hgb Hct MCV MCH MCHC RDW Plt Count Neut % (Auto) Lymph % (Auto) [place] % (Auto) Eos % (Auto) Baso % (Auto) Lymph # (Auto) [place] # (Auto) Baso # (Auto) Total Counted Seg Neutrophils % Band Neutrophils % Monocytes % (Manual) Metamyelocytes % Neutrophils # (Manual) RBC Morphology ESR PT INR APTT Sodium 134 L Potassium 5.5 H Chloride 93 L Carbon Dioxide 38 H BUN 91 H Creatinine 1.82 H Estimated GFR 26.8 L BUN/Creatinine Ratio 50.0 H Glucose 184 H Lactate Uric Acid 12.9 H* Calcium 10.0 Total Bilirubin 0.4 AST 40 H ALT 49 H Alkaline Phosphatase 193 H C-Reactive Protein 36.6 H Total Protein 7.0 Albumin 3.4 L Globulin 3.6 Albumin/Globulin Ratio 0.9 L Lipase 18 L Procalcitonin 4.93 H Assessment & Plan Assessment & Plan narrative: Leyda Nielsen will be placed into an inpatient bed for treatment and management of a cellulitis of the right foot with suspicion of a septic joint and or gout attack. Cellulitis of the right foot vs septic joint, acute, present on admission -Ortho will be following to determine whether not to tap her joint or have an MRI taken over foot and ankle -she has a leukocytosis of 32.4 with a left shift, elevated ESR and CRP -ceftriaxone 1 g IV daily -vancomycin dosed per pharmacy Gout exacerbation, acute, present on admission with a uric acid of 12.9 -due to acute kidney injury she will not be able to take an NSAID 's -Tylenol for pain Leukocytosis, acute, present on admission -likely secondary to infection and recent prednisone use -continue daily monitoring of her CBC Paroxysmal atrial fibrillation on anticoagulation, chronic, not present on admission -continue home dose of apixaban 5 mg p.o. b.i.d. -telemetry Recent history of HFpEF, likely chronic and present on admission -1500 ml fluid restriction, strict Is and Os -Patient requests water all the time -Previous diuresis have been ineffective at high doses, she was to follow up with nephrology upon discharge in May and will need to obtain old records if available. Morbid obesity, chronic and present on admission -I have ordered an A1c due to elevated glucoses and her constant thirst COPD on home O2, likely does not represent acute exacerbation -as noted above dyspnea on exertion is likely due to volume overload at this time. She takes home Spiriva and Symbicort, will replace here with formulary medications. Psoriasis on Humira, chronic, improved -patient reports Humira injections every 2 weeks, with last dose approximately week and half ago. 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 She reports good response to Humira as far as her psoriasis. Consults: Dr. Rm, Orthpedic Surgery, consult and involvement is appreciated. Patient is inpatient status as her stay is likely to exceed 2 midnights. FEN: IV saline lock, low sodium diet, BMP in the am. VTE prophylaxis: Left sided SCD, Enoxaparin 40 mg subQ daily Dispo: Probable discharge to home Code Status: Full Code as discussed with patient.
[2019-08-02 02:54] LABS: Hemoglobin A1C% w Est Avg Glu 5.4 % (4.0-6.0)
--- NOTE | 2019-08-02 05:34 | PC.NURSE ---
Pt admitted as AxOx3, Vitals stable. Tolerating 3L NC at 94% (baseline uses 3L NC at home). Continuous pulse ox on. States using a trilogy at home HS. Occasional non-productive cough Complaints of 10/10 right foot pain from Gout. Finally relieved with 2mg IV morphine Right foot is hot, red, swollen. No broken skin. B/L feet with +2-+3 pitting edema. Bruises throughout from falling at home. Large bruise to back of knee, flank area, and arm. NS@75mL/hr Fluid restriction followed. SCD on left calf Tele: Afib
[2019-08-02 06:22] LABS: Hematocrit 25.8 % (36-46); Hemoglobin 8.5 g/dL (12.0-16.0); Mean Corpuscular HGB Conc 33.2 % (30-36); Mean Corpuscular Hemoglobin 32.3 PG (26-34); Mean Corpuscular Volume 97.4 fL (80-100); Platelet Count 302 X10^3/uL (150-400); Red Blood Cell Count 2.65 X10^6/uL (4.0-5.2); Red Cell Distribution Width 14.3 % (11.6-14.8); White Blood Cell Count 27.8 X10^3/uL (4.5-11.0)
[2019-08-02 06:23] LABS: Add Manual Diff / Slide Review YES
[2019-08-02 06:28] LABS: Blood Urea Nitrogen 85 mg/dL (7-17); Calcium 9.9 mg/dL (8.4-10.2); Carbon Dioxide 36 mmol/L (22-32); Chloride 94 mmol/L (98-107); Estimated Glomerular Filt Rate 33.8 mL/min (>60); Glucose 145 mg/dL (80-110); HEMOLYSIS < 15 (0-50); Sodium 135 mmol/L (137-145)
[2019-08-02 06:33] LABS: Potassium 5.4 mmol/L (3.4-5.1)
[2019-08-02 07:00] LABS: Neutrophils Absolute Manual 27522 /uL (3000-5900); RBC Morphology Normal Morphology; Total Cells Counted 100
[2019-08-02] MEDS: ENOXAPARIN 40 MG/0.4 ML SYRINGE SUBCUT (08:16)
[2019-08-02] MEDS: FLUoxetine 20 MG CAPSULE PO (08:16)
[2019-08-02] MEDS: DOCUSATE 100 MG CAPSULE PO (08:16)
[2019-08-02] MEDS: APIXABAN 5 MG TABLET PO (08:16)
--- NOTE | 2019-08-02 08:29 | PM.CN ---
History of Present Illness Consult details Date Patient Seen: 08/02/19 Time Patient Seen: 08:29 Chief complaint: GLF Reason for consult: right ankle erythema and pain Requesting provider: Reina Cross Narrative: Leyda Nielsen is a 79-year-old oxygen-dependent female with paroxysmal atrial fibrillation, chronic CHF, COPD and plaque psoriasis who came into the emergency department with a complaint of a gout attack of her right foot and ankle 2 days prior on 07/30/2019. She has a history of gout and this is what the presumed diagnosis was. She was on prednisone at the time. She re-presented on the evening of 08/01/2019. She denies fevers sweats or chills. She is unable to bear weight on it. She denies nausea, vomiting, fevers or chills. The ED asked my opinion regarding right ankle tap. Due to the patient's cutaneous erythema, I am reluctant to possibly introduce bacteria from a cellulitis into the patient's joint. There is no clear window without erythema by which to access the joint. Patient does have an elevated uric acid as well as ESR and CRP. Her white count is 32.4. Patient has not been on abx to this point. Meds Home Medications and Allergies Home Medications Medication Instructions Recorded Confirmed Type Eliquis 5 mg PO BID 05/24/19 08/02/19 History [place]-3 1 cap PO DAILY 05/24/19 08/02/19 History Spiriva Respimat 2 inh INHALATION DAILY 05/24/19 08/02/19 History acetaminophen 650 mg PO Q6H PRN 05/24/19 08/02/19 History albuterol sulfate 1.25 mg INHALATION Q6H PRN 05/24/19 08/02/19 History albuterol sulfate 2 inh INHALATION Q4H PRN 05/24/19 08/02/19 History budesonide-formoterol [Symbicort] 1 inh INHALATION BID 05/24/19 08/02/19 History bupropion HCl 150 mg PO QPM 05/24/19 08/02/19 History calcitonin (sal[place]) 1 spray INTRANASAL (ALT) DAILY 05/24/19 08/02/19 History cholecalciferol (vitamin D3) 5,000 unit PO DAILY 05/24/19 08/02/19 History [Vitamin D3] ferrous sulfate 325 mg PO DAILY 05/24/19 08/02/19 History fluoxetine 20 mg PO DAILY 05/24/19 08/02/19 History latanoprost 1 drp OPHTHALMIC (EYE) BEDTIME 05/24/19 08/02/19 History levalbuterol HCl [Xopenex] 1.25 mg INHALATION Q4H 05/24/19 08/02/19 History magnesium oxide 400 mg PO DAILY 05/24/19 08/02/19 History melatonin 3 mg PO BEDTIME PRN 05/24/19 08/02/19 History metolazone 1.25 mg PO DAILY 05/24/19 08/02/19 History montelukast 10 mg PO QPM 05/24/19 08/02/19 History potassium chloride 40 meq PO DAILY 05/24/19 08/02/19 History prednisone See Rx Instructions .ROUTE .COMPLEX 05/24/19 08/02/19 History spironolactone 75 mg PO DAILY 05/24/19 08/02/19 History prednisone 40 mg PO DAILY #50 tab 07/30/19 08/02/19 Rx Allergies Allergy/AdvReac Type Severity Reaction Status Date / Time Sulfa (Sulfonamide Allergy Intermediate Verified 07/30/19 10:17 Antibiotics) Exam Vital Signs (past 8 hours): - 08/02/19 00:36 08/02/19 01:11 08/02/19 05:54 Temperature 98.0 F 99.4 F Pulse Rate 89 83 94 H Respiratory Rate 14 18 18 Blood Pressure 122/45 L 140/58 L Blood Pressure [Right Arm] 140/67 Pulse Oximetry 97 94 92 08/02/19 07:53 08/02/19 08:00 Temperature 98.1 F Pulse Rate 122 H Respiratory Rate 22 Blood Pressure 122/70 Blood Pressure [Right Arm] Pulse Oximetry 94 92 Oxygen Delivery Method Nasal Cannula Oxygen Flow Rate 3 Narrative Exam Narrative: Passive ROM of the right ankle with minimal pain. No skin breaks. Diffuse erythema throughout the dorsum of the foot, circumferential at the ankle and over the anterior tibia to mid leg. No tophi. The ankle is swollen, but not markedly so compared to contralateral side. Exam is hindered by significant dependent edema in BLE. No weeping of the skin, no cutaneous crepitance. No bullae. Objective Labs Result Diagrams: 08/02/19 06:10 05/11/20 06:10 Labs: Laboratory Results - last 24 hr 08/01/19 08/01/19 08/01/19 22:35 23:00 23:00 WBC 32.4 H* RBC 2.77 L Hgb 8.8 L Hct 27.0 L MCV 97.5 MCH 31.7 MCHC 32.5 RDW 14.0 Plt Count 357 Neut % (Auto) Not Reportable Lymph % (Auto) Not Reportable [place] % (Auto) Not Reportable Eos % (Auto) Not Reportable Baso % (Auto) Not Reportable Lymph # (Auto) Not Reportable [place] # (Auto) Not Reportable Baso # (Auto) Not Reportable Total Counted 100 Seg Neutrophils % 78.0 H Band Neutrophils % 19.0 H Monocytes % (Manual) 2.0 Metamyelocytes % 1.0 H Neutrophils # (Manual) 47493 H RBC Morphology Normal morphology ESR > 140 H PT 22.5 H INR 2.0 H APTT 37 H D Sodium Potassium Chloride Carbon Dioxide BUN Creatinine Estimated GFR BUN/Creatinine Ratio Glucose Hemoglobin A1c Lactate 1.5 Uric Acid Calcium Total Bilirubin AST ALT Alkaline Phosphatase C-Reactive Protein Total Protein Albumin Globulin Albumin/Globulin Ratio Lipase Procalcitonin 08/01/19 08/01/19 08/01/19 23:00 23:00 23:00 WBC RBC Hgb Hct MCV MCH MCHC RDW Plt Count Neut % (Auto) Lymph % (Auto) [place] % (Auto) Eos % (Auto) Baso % (Auto) Lymph # (Auto) [place] # (Auto) Baso # (Auto) Total Counted Seg Neutrophils % Band Neutrophils % Monocytes % (Manual) Metamyelocytes % Neutrophils # (Manual) RBC Morphology ESR PT INR APTT Sodium 134 L Potassium 5.5 H Chloride 93 L Carbon Dioxide 38 H BUN 91 H Creatinine 1.82 H Estimated GFR 26.8 L BUN/Creatinine Ratio 50.0 H Glucose 184 H Hemoglobin A1c Lactate Uric Acid 12.9 H* Calcium 10.0 Total Bilirubin 0.4 AST 40 H ALT 49 H Alkaline Phosphatase 193 H C-Reactive Protein 36.6 H Total Protein 7.0 Albumin 3.4 L Globulin 3.6 Albumin/Globulin Ratio 0.9 L Lipase 18 L Procalcitonin 4.93 H 08/01/19 08/02/19 08/02/19 23:00 06:10 06:10 WBC 27.8 H RBC 2.65 L Hgb 8.5 L Hct 25.8 L MCV 97.4 MCH 32.3 MCHC 33.2 RDW 14.3 Plt Count 302 Neut % (Auto) Not Reportable Lymph % (Auto) Not Reportable [place] % (Auto) Not Reportable Eos % (Auto) Not Reportable Baso % (Auto) Not Reportable Lymph # (Auto) Not Reportable [place] # (Auto) Not Reportable Baso # (Auto) Not Reportable Total Counted 100 Seg Neutrophils % 83.0 H Band Neutrophils % 16.0 H Monocytes % (Manual) 1.0 L Metamyelocytes % Neutrophils # (Manual) 97740 H RBC Morphology Normal morphology ESR PT INR APTT Sodium 135 L Potassium 5.4 H Chloride 94 L Carbon Dioxide 36 H BUN 85 H Creatinine 1.49 H Estimated GFR 33.8 L BUN/Creatinine Ratio 57.0 H Glucose 145 H Hemoglobin A1c 5.4 Lactate Uric Acid Calcium 9.9 Total Bilirubin AST ALT Alkaline Phosphatase C-Reactive Protein Total Protein Albumin Globulin Albumin/Globulin Ratio Lipase Procalcitonin Assessment & Plan Assessment & Plan narrative: Leyda Nielsen is a 79 yo female with multiple medical comorbidities who I was consulted for suspicion of a septic joint and or gout attack. Her symptoms and presentation are most consistent with cellulitis, however septic ankle cannot be rule dout at this time. I cannot aspirate her right ankle joint without possible introducing bacteria from the cellulitis into the ankle. There is no clear window to perform aspiration. I will continue to follow patient's inpatient progress. Cellulitis of the right foot vs septic joint - Hold off on ankle aspiration at this time, if no improvement of symptoms with abx may consider ankle aspiration tomorrow - she has a leukocytosis of 32.4 with a left shift, elevated ESR and CRP - ceftriaxone 1 g IV daily (per medicine) - vancomycin dosed per pharmacy Gout exacerbation - uric acid of 12.9 Time Spent With Patient Time with patient: 15-24 minutes
[2019-08-02] MEDS: metOLazone 2.5 MG TABLET 1.25 MG PO (08:31)
--- NOTE | 2019-08-02 09:48 | PC.NURSE ---
Day shift: At approx 0900 Pt stated I feel funny. Dr Cardenas informed. Pt has been getting IV morphine for pain and this promotion writer explained that the morphine can make people feel funny. Pt HR has been tachy in the 110's and made aware. Pt on 3L NC and is 94%. all light in reach and bed alrm is on. Per Dr Cardenas Pt is now SL.
--- NOTE | 2019-08-02 10:48 | PC.NURSE ---
Day shift: Asked day shift RN coordinator Sintia about Pt's home meds in safe or office but no meds there. Also called pharmacy and no neds there as well. Will look in Pt's room.
--- NOTE | 2019-08-02 11:33 | PC.NURSE ---
Day shift: Pt's family brought her Trilogy machine and it is in Pt's room now. Called RT to set it up.
[2019-08-02] MEDS: VANCOMYCIN 1,500 MG/300 ML FROZ.PIGGY 150 MG IV (13:06)
--- NOTE | 2019-08-02 14:24 | CM.DANOTE ---
Patient is a 79 year old female who was admitted on 08/01/19 for GLF. Pt has [employer] for insurance and her PCP is Dr. Josue Menchaca. EMR was reviewed. Per MD, pt with hx of CHF, COPD, home oxygen at baseline and now with new cellulitis of the foot. Ortho consulted and recommend IV-Abx currently and pt not safe for aspiration yet at this time. Pt was recently here in May 2019 for COPD exacerbation and was safe for d/c home with sister Latrice staying with pt to assist. Pt has local supportive adult children nearby for additional assist and has oxygen through [employer] and has home trilogy bedside. Pt bariatric at baseline but has been mostly independent with ADL's. SW attempted to meet with pt bedside and explained role and pt clearly having difficulty breathing and moaning in pain from her infection and fall. Pt was able to confirm that her sister aLtrice is still staying with her at this time for assist but was unable to fully answer any additional discharge planning questions. Plan: SW to follow for more indepth d/c planning discussion with pt and likely need for PT/OT initial eval when pt more medically stable and appropriate towards identifying d/c needs. JACKELIN Macdonald Discharge Planning/Care Management CM Discharge Assessment Start: 08/02/19 14:20 Freq: Status: Active Protocol: Document 08/02/19 14:20 BF (Rec: 08/02/19 14:24 [id number]) Discharge Planning Assessment Assigned Ticket Dispatcher JACKELIN Benjamin Advance Directives? Yes History Provided By Patient,Medical Record Comment Recent discharge home from [facility] in May 2019 Prior Living Arrangements House Household Members family Comment Pt lives at home alone but sister Latrice has been staying with to assist Type of transporation used prior to Drives own vehicle admit Independent with ADL's Yes: mostly Is patient alert and oriented? Yes Caregiver for Another No Community Services used prior to Oxygen Therapy admission: Comment Pending pt's progress and PT/ OT initial evals Barriers to Discharge No Discharge Plan [facility] Facility Transportation Arrangement Family vs facility van pending needs at d/c. Additional Comment Waiting for likely need of PT/ OT Whiteboard Updated in Patient Room with Yes name and ext. # of Ticket Dispatcher Review Status In Process Please Provide Date Initial DC 08/02/19 Assessment Was Performed Next Review Type Continued Stay Review
[2019-08-02 14:35] LABS: Acinetobacter baumannii Not Detected (Not Detect); Candida albicans Not Detected (Not Detect); Candida glabrata Not Detected (Not Detect); Candida krusei Not Detected (Not Detect); Candida parapsilosis Not Detected (Not Detect); Candida tropicalis Not Detected (Not Detect); E. coli Not Detected (Not Detect); Enterobacter cloacae complex Not Detected (Not Detect); Enterobacteriaceae species Not Detected (Not Detect); Enterococcus species Not Detected (Not Detect); Haemophilus influenzae Not Detected (Not Detect); KPC (carbapenem-resist gene) Not Detected (Not Detect); Listeria monocytogenes Not Detected (Not Detect); Methicillin-resistant gene Not Detected (Not Detect); Neisseria meningitidis Not Detected (Not Detect); Proteus species Not Detected (Not Detect); Pseudomonas aeruginosa Not Detected (Not Detect); Serratia marcescens Not Detected (Not Detect); Staphylococcus species Detected (Not Detect); Streptococcus agalactiae (Gr B Not Detected (Not Detect); Streptococcus pneumonia Not Detected (Not Detect); Streptococcus pyogenes (Gr A) Not Detected (Not Detect); Streptococcus species Not Detected (Not Detect); Vancomycin-rest genes A/B Not Detected (Not Detect)
--- NOTE | 2019-08-02 14:43 | DI.ECHO.S_ITS ---
[place] [facility]---------+ [facility] +---------+ : : [address] : [address] : : : : [id number] : : : : Phone: [phone] Echocardiogram Report + + :Name: ARBEN BAL Study Date: 08/03/2019 Height: 64 in : :[facility] Weight: 268 lb : : Gender: Female BSA: 2.2 m2 : :: 1940 Age: 79 yrs BP: 106/54 mmHg: :Reason For Study: staph bacteremia : :Ordering Physician: Davina : :Hospitalist Performed By: Esthela Macias : :Referring: ANEL CLIFFORD : + + Interpretation Summary Image quality is suboptimal. Patient could not participate in the study due to altered mental status. The left ventricular ejection fraction is normal. There are no obvious focal wall motion abnormalities noted but poor endocardial definition reduces the sensitivity for the detection of such. The right ventricular systolic function is normal. The right atrium is severely dilated. The right ventricular systolic pressure is estimated to be at least 30 mmHg based on an estimated right atrial pressure of 3 mm Hg. No hemodynamically significant valvular abnormalities. No obvious vegetation. Overall similar to the prior echocardiogram. Procedure: A two-dimensional transthoracic echocardiogram with color flow and Doppler was performed. The study quality was technically limited. The study quality was technically difficult. Comparison is made with the echocardiogram of 05/26/2019. Patient was in an altered mental status during exam due to infection. The heart rate ranged between 95-115 bpm during the study. Left Ventricle: The left ventricle is normal in size and wall thickness. The ejection fraction is estimated to be 60-65%. The left ventricular ejection fraction is normal. There are no obvious focal wall motion abnormalities noted but poor endocardial definition reduces the sensitivity for the detection of such. Diastolic function could not be accurately assessed due to tachycardia. Right Ventricle: The right ventricle is mildly dilated. The right ventricular systolic function is normal. Atria: The left atrium is mildly dilated. The right atrium is severely dilated. There is no Doppler evidence for an interatrial shunt. Mitral Valve: There is mild mitral annular calcification. The mitral valve is grossly normal. There is trace mitral regurgitation. Aortic Valve: The aortic valve is not well visualized. No aortic regurgitation is present. Tricuspid Valve: The tricuspid valve is not well visualized. The tricuspid valve is not well visualized, but is grossly normal. There is mild tricuspid regurgitation. The right ventricular systolic pressure is estimated to be at least 30 mmHg based on an estimated right atrial pressure of 3 mm Hg. Pulmonic Valve: The pulmonic valve is not well visualized. Great Vessels: The aortic root is normal size. The ascending aorta could not be visualized. The aortic arch is normal in size. The IVC has a measurement of 23mm mm. Pericardium/ Pleura There is no pericardial effusion. There is no pleural effusion. MMode/2D Measurements & Calculations LVIDd: 5.1 cm LVOT diam: 2.2 cm LVIDs: 3.6 cm Ao root diam: 3.5 cm FS: 28.9 % Ao Arch Diam (Prox Trans): 2.6 cm IVSd: 0.97 cm LVPWd: 0.89 cm LV valdez. diameter/BSA (cm/m^2): 2.3 LV sys. diameter/BSA (cm/m^2): 1.6 LA A2 area: 23.0 cm2 RA long axis: 6.8 cm LA A4 area: 34.1 cm2 RA area: 33.8 cm2 LA length (vol): 7.3 cm RA vol: 141.9 ml LA vol: 91.5 ml RA : 64.1 ml/m2 LA vol index: 41.3 ml/m2 IVC diam: 2.3 cm RVD1 (basal): 4.4 cm TAPSE: 1.8 cm Doppler Measurements & Calculations Ao V2 max: 244.5 cm/sec LVOT Max Dionicio: 107.9 cm/sec Ao V2 mean: 153.0 cm/sec LV V1 max P.7 mmHg Ao max P.9 mmHg LV V1 VTI: 17.9 cm Ao mean P.5 mmHg STEVE(I,D): 1.8 cm2 Ao V2 VTI: 37.0 cm STEVE(V,D): 1.6 cm2 sev ratio: 0.48 STEVE indexed to BSA (cm^2/m^2): 0.79 MV E max dionicio: 109.4 cm/sec TR max dionicio: 263.6 cm/sec MV A max dionicio: 1.7 cm/sec TR max P.8 mmHg MV E/A: 62.9 Med Peak E' Dionicio: 11.0 cm/sec E/E' med: 9.9 Lat Peak E' Dionicio: 12.2 cm/sec E/E' lat: 9.0 E/e' average: 9.4 MV dec time: 0.15 sec SV([facility]): 65.0 ml Electronically signed by: Gato Askew M.D. on Reading Physician:08/03/2019 02:37 PM
--- NOTE | 2019-08-02 16:07 | PC.NURSE ---
Addendum entered by Crissy Masterson R.N. 08/02/19 21:38: Pt occasionally agitated & attempting to get out of bed. IVF continue as per orders w/o incidence. Pt rested for one hour to one & half hours after ativan. Calls out when needs to void on bedpan. Call light w/in reach, bed alarm on for pt safety. Continue w/plan of care. Addendum entered by Crissy Masterson R.N. 08/02/19 18:38: Pt moaning continuously & wanting someone to stay w/her at all time. MD in to see. CXR ordered & 0.5mg ativan given as per MD orders. Will assess, Call light w/in reach, bed alarm on for pt safety. Original Note: Pt resting at this time, R= 16, SpO2 97% onn 2L O2. RLE w/1+ edema noted, LLE w/mild edema. IVF of NS @ 75cc/hr infusing into the LFA via pump w/o incidence. SCD to LLE in place. Pt allowed ro rest at this time. Call light w/in reach, bed alarm on fpr pt safety.
--- NOTE | 2019-08-02 16:59 | P.PN_ITS ---
Subjective Subjective Date Patient Seen: 08/02/19 Time Patient Seen: 09:00 Interval history: Leyda Nielsen is a 79-year-old oxygen-dependent female with paroxysmal atrial fibrillation, chronic diastolic CHF, COPD and plaque psoriasis who came into the emergency department with right lower extremity redness, swelling and pain. She has been lethargic throughout the day, but alert and oriented. Her leukocytosis was quite market and she remained tachycardic throughout the day as well. She is on her usual dose home oxygen however. This afternoon her blood cultures came back positive for a Staph species. The patient continues to only complain of weakness as well as right lower extremity pain. She denies any cough, fever, chills. Her leukocytosis did improve this morning and she remains on ceftriaxone and vancomycin. Appreciate Orthopedic surgery consultation who did not want to aspirate her right ankle given overlying cellulitis. Have ordered echocardiogram given positive blood cultures, she may ultimately require a FEMI to look for vegetations. Exam Vital Signs (past 8 hours): - 08/02/19 12:00 08/02/19 16:06 08/02/19 16:10 Temperature 98.7 F 98.3 F Pulse Rate 101 H 109 H Respiratory Rate 22 16 16 Blood Pressure 111/84 106/54 L Pulse Oximetry 93 96 Oxygen Delivery Method Nasal Cannula Oxygen Flow Rate 2 Narrative Exam Narrative: GENERAL APPEARANCE: Ill-appearing, obese female in no acute distress in bed SKIN: Inspection of the skin reveals no rashes, ulcerations or petechiae. HEENT: Normocephalic atraumatic, extraocular muscles are intact, oropharynx is clear and mucous membranes are moist, neck is supple without adenopathy NECK: Supple and symmetric. There was no thyroid enlargement, and no tenderness, or masses were felt. CHEST: Normal AP diameter and normal contour without any kyphoscoliosis. LUNGS: Auscultation of the lungs revealed no wheezes, rhonchi, or rales. CARDIOVASCULAR: There was a regular rate and rhythm without any murmurs, gallops, rubs. Peripheral pulses were 2+ and symmetric. ABDOMEN: Soft and nontender with normal bowel sounds. No ascites was noted. MUSCULOSKELETAL: She is tender over her right ankle, given her obesity is difficult to tell if there is any swelling compared to her left. EXTREMITIES: No cyanosis, clubbing. There is circumferential erythema, mild, with warmth, over her right ankle. Extends somewhat into the forefoot and upper calf minimally. NEUROLOGIC: Alert and oriented x 3. Normal affect. Gait was normal. Strength is +5/5 in the Upper Extremities and Lower Extremities Bilaterally. Sensation to touch was normal. Objective Labs Result Diagrams: 08/02/19 06:10 08/02/19 06:10 Labs: Laboratory Results - last 24 hr 08/01/19 08/01/19 08/01/19 22:35 23:00 23:00 WBC 32.4 H* RBC 2.77 L Hgb 8.8 L Hct 27.0 L MCV 97.5 MCH 31.7 MCHC 32.5 RDW 14.0 Plt Count 357 Neut % (Auto) Not Reportable Lymph % (Auto) Not Reportable [place]range % (Auto) Not Reportable Eos % (Auto) Not Reportable Baso % (Auto) Not Reportable Lymph # (Auto) Not Reportable [place] # (Auto) Not Reportable Baso # (Auto) Not Reportable Total Counted 100 Seg Neutrophils % 78.0 H Band Neutrophils % 19.0 H Monocytes % (Manual) 2.0 Metamyelocytes % 1.0 H Neutrophils # (Manual) 27162 H RBC Morphology Normal morphology ESR > 140 H PT 22.5 H INR 2.0 H APTT 37 H D Sodium Potassium Chloride Carbon Dioxide BUN Creatinine Estimated GFR BUN/Creatinine Ratio Glucose Hemoglobin A1c Lactate 1.5 Uric Acid Calcium Total Bilirubin AST ALT Alkaline Phosphatase C-Reactive Protein Total Protein Albumin Globulin Albumin/Globulin Ratio Lipase Procalcitonin A. baumannii (PCR) Arabella albicans (PCR) C. glabrata (PCR) C. krusei (PCR) C. parapsilosis (PCR) C. tropicalis (PCR) Enterobacteriac sp PCR E. cloacae complex PCR Enterococcus sp PCR E. coli (PCR) H. influenzae (PCR) Klebsiella oxytoca PCR Klebsiella pneumoniae List. monocytogenes PCR N. meningitidis (PCR) Proteus species (PCR) Serratia marcescens PCR Staphylococcus sp PCR Staph aureus (PCR) mecA-Methicil Res Gene Streptococcus sp PCR Group A Strep (PCR) Strep agalactiae (PCR) Strep pneumoniae (PCR) P. aeruginosa (PCR) Soledad/B-Vanco Res Genes KPC-Carbap Res Gene PCR 08/01/19 08/01/19 08/01/19 23:00 23:00 23:00 WBC RBC Hgb Hct MCV MCH MCHC RDW Plt Count Neut % (Auto) Lymph % (Auto) Lagrange % (Auto) Eos % (Auto) Baso % (Auto) Lymph # (Auto) Lagrange # (Auto) Baso # (Auto) Total Counted Seg Neutrophils % Band Neutrophils % Monocytes % (Manual) Metamyelocytes % Neutrophils # (Manual) RBC Morphology ESR PT INR APTT Sodium 134 L Potassium 5.5 H Chloride 93 L Carbon Dioxide 38 H BUN 91 H Creatinine 1.82 H Estimated GFR 26.8 L BUN/Creatinine Ratio 50.0 H Glucose 184 H Hemoglobin A1c Lactate Uric Acid 12.9 H* Calcium 10.0 Total Bilirubin 0.4 AST 40 H ALT 49 H Alkaline Phosphatase 193 H C-Reactive Protein 36.6 H Total Protein 7.0 Albumin 3.4 L Globulin 3.6 Albumin/Globulin Ratio 0.9 L Lipase 18 L Procalcitonin 4.93 H A. baumannii (PCR) Arabella albicans (PCR) C. glabrata (PCR) C. krusei (PCR) C. parapsilosis (PCR) C. tropicalis (PCR) Enterobacteriac sp PCR E. cloacae complex PCR Enterococcus sp PCR E. coli (PCR) H. influenzae (PCR) Klebsiella oxytoca PCR Klebsiella pneumoniae List. monocytogenes PCR N. meningitidis (PCR) Proteus species (PCR) Serratia marcescens PCR Staphylococcus sp PCR Staph aureus (PCR) mecA-Methicil Res Gene Streptococcus sp PCR Group A Strep (PCR) Strep agalactiae (PCR) Strep pneumoniae (PCR) P. aeruginosa (PCR) Soledad/B-Vanco Res Genes KPC-Carbap Res Gene PCR 08/01/19 08/02/19 08/02/19 23:00 00:18 06:10 WBC 27.8 H RBC 2.65 L Hgb 8.5 L Hct 25.8 L MCV 97.4 MCH 32.3 MCHC 33.2 RDW 14.3 Plt Count 302 Neut % (Auto) Not Reportable Lymph % (Auto) Not Reportable [place]range % (Auto) Not Reportable Eos % (Auto) Not Reportable Baso % (Auto) Not Reportable Lymph # (Auto) Not Reportable [place] # (Auto) Not Reportable Baso # (Auto) Not Reportable Total Counted 100 Seg Neutrophils % 83.0 H Band Neutrophils % 16.0 H Monocytes % (Manual) 1.0 L Metamyelocytes % Neutrophils # (Manual) 64189 H RBC Morphology Normal morphology ESR PT INR APTT Sodium Potassium Chloride Carbon Dioxide BUN Creatinine Estimated GFR BUN/Creatinine Ratio Glucose Hemoglobin A1c 5.4 Lactate Uric Acid Calcium Total Bilirubin AST ALT Alkaline Phosphatase C-Reactive Protein Total Protein Albumin Globulin Albumin/Globulin Ratio Lipase Procalcitonin A. baumannii (PCR) Not detected Arabella albicans (PCR) Not detected C. glabrata (PCR) Not detected C. krusei (PCR) Not detected C. parapsilosis (PCR) Not detected C. tropicalis (PCR) Not detected Enterobacteriac sp PCR Not detected E. cloacae complex PCR Not detected Enterococcus sp PCR Not detected E. coli (PCR) Not detected H. influenzae (PCR) Not detected Klebsiella oxytoca PCR Not detected Klebsiella pneumoniae Not detected List. monocytogenes PCR Not detected N. meningitidis (PCR) Not detected Proteus species (PCR) Not detected Serratia marcescens PCR Not detected Staphylococcus sp PCR Detected H Staph aureus (PCR) Detected H mecA-Methicil Res Gene Not detected Streptococcus sp PCR Not detected Group A Strep (PCR) Not detected Strep agalactiae (PCR) Not detected Strep pneumoniae (PCR) Not detected P. aeruginosa (PCR) Not detected Soledad/B-Vanco Res Genes Not detected KPC-Carbap Res Gene PCR Not detected 08/02/19 06:10 WBC RBC Hgb Hct MCV MCH MCHC RDW Plt Count Neut % (Auto) Lymph % (Auto) Lagrange % (Auto) Eos % (Auto) Baso % (Auto) Lymph # (Auto) [place] # (Auto) Baso # (Auto) Total Counted Seg Neutrophils % Band Neutrophils % Monocytes % (Manual) Metamyelocytes % Neutrophils # (Manual) RBC Morphology ESR PT INR APTT Sodium 135 L Potassium 5.4 H Chloride 94 L Carbon Dioxide 36 H BUN 85 H Creatinine 1.49 H Estimated GFR 33.8 L BUN/Creatinine Ratio 57.0 H Glucose 145 H Hemoglobin A1c Lactate Uric Acid Calcium 9.9 Total Bilirubin AST ALT Alkaline Phosphatase C-Reactive Protein Total Protein Albumin Globulin Albumin/Globulin Ratio Lipase Procalcitonin A. baumannii (PCR) Arabella albicans (PCR) C. glabrata (PCR) C. krusei (PCR) C. parapsilosis (PCR) C. tropicalis (PCR) Enterobacteriac sp PCR E. cloacae complex PCR Enterococcus sp PCR E. coli (PCR) H. influenzae (PCR) Klebsiella oxytoca PCR Klebsiella pneumoniae List. monocytogenes PCR N. meningitidis (PCR) Proteus species (PCR) Serratia marcescens PCR Staphylococcus sp PCR Staph aureus (PCR) mecA-Methicil Res Gene Streptococcus sp PCR Group A Strep (PCR) Strep agalactiae (PCR) Strep pneumoniae (PCR) P. aeruginosa (PCR) Soledad/B-Vanco Res Genes KPC-Carbap Res Gene PCR Assessment & Plan Assessment & Plan narrative: Leyda Nielsen is a 79-year-old oxygen-dependent female with paroxysmal atrial fibrillation, chronic diastolic CHF, COPD and plaque psoriasis who came into the emergency department with right lower extremi ty redness, swelling and pain. She was admitted over concern for possible cellulitis versus gout infection of her right lower extremity, however gout is seemingly unlikely given staph bacteremia. Will continue ceftriaxone and vancomycin pending blood cultures. 1. Staph bacteremia, present on admission -pending final culture and sensitivities -have ordered transthoracic echocardiogram to look for vegetations -consider ID consultation or transfer for FEMI -continue ceftriaxone and vancomycin pending cultures -source could potentially be her right lower extremity given the severity of her presentation. She has no evidence of pneumonia and no abdominal pain to suspect intra-abdominal source. -ESR is markedly elevated, will likely need further evaluation for osteomyelitis. 2. Cellulitis of the right foot and ankle vs septic joint, acute, present on admission -appreciate orthopedic consultation, Dr. Rm who will continue to follow -she has a leukocytosis of 32.4 on admission, improved to 27.8 -ceftriaxone 1 g IV daily -vancomycin dosed per pharmacy -ESR is extremely elevated at greater than 140, consider further evaluation for osteomyelitis. 3. Gout, , present on admission with a uric acid of 12.9 -unclear if this represents a gouty attack, will avoid steroids at this time giv en staph bacteremia. 4. Paroxysmal atrial fibrillation on anticoagulation, chronic, not present on admission -continue home dose of apixaban 5 mg p.o. b.i.d. -telemetry 5. Recent history of HFpEF, likely chronic and present on admission -1500 ml fluid restriction, strict Is and Os -Patient requests water all the time -Previous diuresis have been ineffective at high doses, she was to follow up [facility] upon discharge in May and will need to obtain old records if available. She does not appear to be volume overloaded at this time. 6. Morbid obesity, chronic and present on admission -I have ordered an A1c due to elevated glucoses and her constant thirst -she has increased risk of complications due to her obesity 7. COPD on home O2, likely does not represent acute exacerbation -as noted above dyspnea on exertion is likely due to volume overload at this time. She takes home Spiriva and Symbicort, will replace here with formulary medications. 8. Psoriasis on Humira, chronic, improved -patient reports Humira injections every 2 weeks, with last dose approximately week and half ago. 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 She reports good response to Humira as far as her psoriasis. Consults: Dr. Rm, Orthpedic Surgery, consult and involvement is appreciated. Code: Full
[2019-08-02] MEDS: buPROPion XL 150 MG TAB PO (17:48)
[2019-08-02] MEDS: MONTELUKAST 10 MG TABLET PO (17:48)
--- NOTE | 2019-08-02 18:19 | DI.RAD.S_ITS ---
PROCEDURE: XR CHEST 1V INDICATIONS: Staph bacteremia ? pulm source TECHNIQUE: One view of the chest was acquired. COMPARISON: [facility], CR, XR CHEST 1V, 05/24/2019, 14:59. FINDINGS: Surgical changes and devices: None. Lungs and pleura: Lungs are clear. No pleural effusions or pneumothorax. Mediastinum: Mediastinal contours appear normal. Heart is enlarged. Bones and chest wall: No suspicious bony lesions. Overlying soft tissues appear unremarkable. IMPRESSION: No acute cardiopulmonary disease process. Dictated by: Evelyne John MD, PhD on 08/02/2019 at 18:40 Approved by: Evelyne John MD, PhD on 08/02/2019 at 18:41
[2019-08-02] MEDS: LORazepam 2 MG/ML INJ 0.5 MG IV (18:36)
--- NOTE | 2019-08-02 19:16 | RT ---
pt set up on home trilogy unit with heater. pt asleep. bbs clear diminished to bases. spo2 92 on 3lpm with trilogy. no tx needed at this time
--- NOTE | 2019-08-02 20:22 | P.PN_ITS ---
Subjective Subjective Date Patient Seen: 08/02/19 Time Patient Seen: 20:22 Interval history: No significant change from pervious exam. Exam Vital Signs (past 8 hours): - 08/02/19 16:06 08/02/19 16:10 08/02/19 20:00 Temperature 98.3 F 98.1 F Pulse Rate 109 H 125 H Respiratory Rate 16 16 20 Blood Pressure 106/54 L 111/47 L Pulse Oximetry 96 Oxygen Delivery Method Nasal Cannula Oxygen Flow Rate 2 Narrative Exam Narrative: Passive ROM of the right ankle with minimal pain. No skin breaks. Diffuse erythema throughout the dorsum of the foot, circumferential at the ankle and over the anterior tibia to mid leg. No tophi. The ankle is swollen, but not markedly so compared to contralateral side. Exam is hindered by significant dependent edema in BLE. No weeping of the skin, no cutaneous crepitance. No bullae. Objective Labs Result Diagrams: 08/02/19 06:10 08/02/19 06:10 Labs: Laboratory Results - last 24 hr 08/01/19 08/01/19 08/01/19 22:35 23:00 23:00 WBC 32.4 H* RBC 2.77 L Hgb 8.8 L Hct 27.0 L MCV 97.5 MCH 31.7 MCHC 32.5 RDW 14.0 Plt Count 357 Neut % (Auto) Not Reportable Lymph % (Auto) Not Reportable [place] % (Auto) Not Reportable Eos % (Auto) Not Reportable Baso % (Auto) Not Reportable Lymph # (Auto) Not Reportable [place] # (Auto) Not Reportable Baso # (Auto) Not Reportable Total Counted 100 Seg Neutrophils % 78.0 H Band Neutrophils % 19.0 H Monocytes % (Manual) 2.0 Metamyelocytes % 1.0 H Neutrophils # (Manual) 97702 H RBC Morphology Normal morphology ESR > 140 H PT 22.5 H INR 2.0 H APTT 37 H D Sodium Potassium Chloride Carbon Dioxide BUN Creatinine Estimated GFR BUN/Creatinine Ratio Glucose Hemoglobin A1c Lactate 1.5 Uric Acid Calcium Total Bilirubin AST ALT Alkaline Phosphatase C-Reactive Protein Total Protein Albumin Globulin Albumin/Globulin Ratio Lipase Procalcitonin A. baumannii (PCR) Arabella albicans (PCR) C. glabrata (PCR) C. krusei (PCR) C. parapsilosis (PCR) C. tropicalis (PCR) Enterobacteriac sp PCR E. cloacae complex PCR Enterococcus sp PCR E. coli (PCR) H. influenzae (PCR) Klebsiella oxytoca PCR Klebsiella pneumoniae List. monocytogenes PCR N. meningitidis (PCR) Proteus species (PCR) Serratia marcescens PCR Staphylococcus sp PCR Staph aureus (PCR) mecA-Methicil Res Gene Streptococcus sp PCR Group A Strep (PCR) Strep agalactiae (PCR) Strep pneumoniae (PCR) P. aeruginosa (PCR) [place]/B-Vanco Res Genes KPC-Carbap Res Gene PCR 08/01/19 08/01/19 08/01/19 23:00 23:00 23:00 WBC RBC Hgb Hct MCV MCH MCHC RDW Plt Count Neut % (Auto) Lymph % (Auto) [place] % (Auto) Eos % (Auto) Baso % (Auto) Lymph # (Auto) [place] # (Auto) Baso # (Auto) Total Counted Seg Neutrophils % Band Neutrophils % Monocytes % (Manual) Metamyelocytes % Neutrophils # (Manual) RBC Morphology ESR PT INR APTT Sodium 134 L Potassium 5.5 H Chloride 93 L Carbon Dioxide 38 H BUN 91 H Creatinine 1.82 H Estimated GFR 26.8 L BUN/Creatinine Ratio 50.0 H Glucose 184 H Hemoglobin A1c Lactate Uric Acid 12.9 H* Calcium 10.0 Total Bilirubin 0.4 AST 40 H ALT 49 H Alkaline Phosphatase 193 H C-Reactive Protein 36.6 H Total Protein 7.0 Albumin 3.4 L Globulin 3.6 Albumin/Globulin Ratio 0.9 L Lipase 18 L Procalcitonin 4.93 H A. baumannii (PCR) Arabella albicans (PCR) C. glabrata (PCR) C. krusei (PCR) C. parapsilosis (PCR) C. tropicalis (PCR) Enterobacteriac sp PCR E. cloacae complex PCR Enterococcus sp PCR E. coli (PCR) H. influenzae (PCR) Klebsiella oxytoca PCR Klebsiella pneumoniae List. monocytogenes PCR N. meningitidis (PCR) Proteus species (PCR) Serratia marcescens PCR Staphylococcus sp PCR Staph aureus (PCR) mecA-Methicil Res Gene Streptococcus sp PCR Group A Strep (PCR) Strep agalactiae (PCR) Strep pneumoniae (PCR) P. aeruginosa (PCR) [place]/B-Vanco Res Genes KPC-Carbap Res Gene PCR 08/01/19 08/02/1908/01/20 23:00 00:18 06:10 WBC 27.8 H RBC 2.65 L Hgb 8.5 L Hct 25.8 L MCV 97.4 MCH 32.3 MCHC 33.2 RDW 14.3 Plt Count 302 Neut % (Auto) Not Reportable Lymph % (Auto) Not Reportable [place] % (Auto) Not Reportable Eos % (Auto) Not Reportable Baso % (Auto) Not Reportable Lymph # (Auto) Not Reportable [place] # (Auto) Not Reportable Baso # (Auto) Not Reportable Total Counted 100 Seg Neutrophils % 83.0 H Band Neutrophils % 16.0 H Monocytes % (Manual) 1.0 L Metamyelocytes % Neutrophils # (Manual) 23056 H RBC Morphology Normal morphology ESR PT INR APTT Sodium Potassium Chloride Carbon Dioxide BUN Creatinine Estimated GFR BUN/Creatinine Ratio Glucose Hemoglobin A1c 5.4 Lactate Uric Acid Calcium Total Bilirubin AST ALT Alkaline Phosphatase C-Reactive Protein Total Protein Albumin Globulin Albumin/Globulin Ratio Lipase Procalcitonin A. baumannii (PCR) Not detected Arabella albicans (PCR) Not detected C. glabrata (PCR) Not detected C. krusei (PCR) Not detected C. parapsilosis (PCR) Not detected C. tropicalis (PCR) Not detected Enterobacteriac sp PCR Not detected E. cloacae complex PCR Not detected Enterococcus sp PCR Not detected E. coli (PCR) Not detected H. influenzae (PCR) Not detected Klebsiella oxytoca PCR Not detected Klebsiella pneumoniae Not detected List. monocytogenes PCR Not detected N. meningitidis (PCR) Not detected Proteus species (PCR) Not detected Serratia marcescens PCR Not detected Staphylococcus sp PCR Detected H Staph aureus (PCR) Detected H mecA-Methicil Res Gene Not detected Streptococcus sp PCR Not detected Group A Strep (PCR) Not detected Strep agalactiae (PCR) Not detected Strep pneumoniae (PCR) Not detected P. aeruginosa (PCR) Not detected [place]/B-Vanco Res Genes Not detected KPC-Carbap Res Gene PCR Not detected 08/02/19 06:10 WBC RBC Hgb Hct MCV MCH MCHC RDW Plt Count Neut % (Auto) Lymph % (Auto) [place] % (Auto) Eos % (Auto) Baso % (Auto) Lymph # (Auto) [place] # (Auto) Baso # (Auto) Total Counted Seg Neutrophils % Band Neutrophils % Monocytes % (Manual) Metamyelocytes % Neutrophils # (Manual) RBC Morphology ESR PT INR APTT Sodium 135 L Potassium 5.4 H Chloride 94 L Carbon Dioxide 36 H BUN 85 H Creatinine 1.49 H Estimated GFR 33.8 L BUN/Creatinine Ratio 57.0 H Glucose 145 H Hemoglobin A1c Lactate Uric Acid Calcium 9.9 Total Bilirubin AST ALT Alkaline Phosphatase C-Reactive Protein Total Protein Albumin Globulin Albumin/Globulin Ratio Lipase Procalcitonin A. baumannii (PCR) Arabella albicans (PCR) C. glabrata (PCR) C. krusei (PCR) C. parapsilosis (PCR) C. tropicalis (PCR) Enterobacteriac sp PCR E. cloacae complex PCR Enterococcus sp PCR E. coli (PCR) H. influenzae (PCR) Klebsiella oxytoca PCR Klebsiella pneumoniae List. monocytogenes PCR N. meningitidis (PCR) Proteus species (PCR) Serratia marcescens PCR Staphylococcus sp PCR Staph aureus (PCR) mecA-Methicil Res Gene Streptococcus sp PCR Group A Strep (PCR) Strep agalactiae (PCR) Strep pneumoniae (PCR) P. aeruginosa (PCR) [place]/B-Vanco Res Genes KPC-Carbap Res Gene PCR Assessment & Plan Assessment & Plan narrative: Leyda Nielsen is a 79 yo female with multiple medical comorbidities who I was consulted for suspicion of a septic joint and or gout attack. Her symptoms and presentation are most consistent with cellulitis, however septic ankle cannot be rule dout at this time. I cannot aspirate her right ankle joint without possible introducing bacteria from the cellulitis into the ankle. There is no clear window to perform aspiration. I will continue to follow patient's inpatient progress. Cellulitis of the right foot vs septic joint - Hold off on ankle aspiration at this time, if no improvement of symptoms with abx may consider ankle aspiration tomorrow - no significant improvement this evening - Recommend CT with contrast right lower extremity to assess for abscess, fascial edema, free air - slight improvement in infectious labs with abx - ceftriaxone 1 g IV daily (per medicine) - vancomycin dosed per pharmacy Gout exacerbation - uric acid of 12.9 Time Spent With Patient Time with patient: less than 15 minutes
[2019-08-03] VITALS (10 sets, daily range): BP systolic 108–149; BP diastolic 54–63; PULSE 86–115; RESP 18–22; TEMP 36–37.1; O2SAT 90–96
[2019-08-03 06:05] LABS: Hematocrit 24.6 % (36-46); Hemoglobin 8.1 g/dL (12.0-16.0); Mean Corpuscular HGB Conc 32.9 % (30-36); Mean Corpuscular Hemoglobin 32.2 PG (26-34); Mean Corpuscular Volume 98.1 fL (80-100); Platelet Count 322 X10^3/uL (150-400); Red Blood Cell Count 2.51 X10^6/uL (4.0-5.2); Red Cell Distribution Width 14.6 % (11.6-14.8); White Blood Cell Count 26.6 X10^3/uL (4.5-11.0)
[2019-08-03 06:07] LABS: Add Manual Diff / Slide Review YES
[2019-08-03 06:08] LABS: Alanine Aminotransferase 50 IU/L (<35); Albumin 3.2 g/dL (3.5-5.0); Albumin Globulin Ratio 0.9 (1.0-2.8); Alkaline Phosphatase 201 U/L (38-126); Aspartate Aminotransferase 36 IU/L (14-36); BUN Creatinine Ratio 54.2 (6-22); Bilirubin Total 0.4 mg/dL (0.2-1.3); Bilirubin Unconjugated 0.1 mg/dL (0.0-1.1); Blood Urea Nitrogen 65 mg/dL (7-17); Calcium 10.1 mg/dL (8.4-10.2); Carbon Dioxide 33 mmol/L (22-32); Chloride 99 mmol/L (98-107); Estimated Glomerular Filt Rate 43.3 mL/min (>60); Globulin 3.5 g/dL (1.7-4.1); Glucose 125 mg/dL (80-110); HEMOLYSIS < 15 (0-50); Potassium 4.7 mmol/L (3.4-5.1); Sodium 139 mmol/L (137-145); Total Protein 6.7 g/dL (6.3-8.2)
--- NOTE | 2019-08-03 06:15 | PC.NURSE ---
Pt lethargic, fatigued and confused. Pt complained of some right foot pain, attempted to give her tylenol but pt was too confused to swallow. Kept blowing into the straw of the water and pocketing pill. Was on Trilogy but then pt became agitated trying to get OOB, was placed back on 3L NC. Fluid Restrictions followed. Tele: Afib, BBB NS@75mL/hr
[2019-08-03 07:21] LABS: Neutrophils Absolute Manual 25802 /uL (3000-5900); Total Cells Counted 100
[2019-08-03 07:22] LABS: Macrocytosis 2+
[2019-08-03] MEDS: SODIUM CHLORIDE 0.9% 1,000 ML 75 ML IV ×2 (08:16→23:26)
[2019-08-03] MEDS: FLUoxetine 20 MG CAPSULE PO ×2 (09:07→21:44)
[2019-08-03] MEDS: APIXABAN 5 MG TABLET PO ×2 (09:07→20:15)
[2019-08-03] MEDS: metOLazone 2.5 MG TABLET 1.25 MG PO (09:15)
[2019-08-03] MEDS: BUDESONIDE FORMOTEROL 1 EACH INH (09:30)
[2019-08-03] MEDS: TIOTROPIUM BROMIDE 2 EACH INH (09:30)
--- NOTE | 2019-08-03 10:24 | PM.PN.1 ---
Subjective Subjective Date Patient Seen: 08/03/19 Time Patient Seen: 10:24 Interval history: Leyda Nielsen is a 79-year-old oxygen-dependent female with paroxysmal atrial fibrillation, chronic CHF, COPD and plaque psoriasis who came into the emergency department with a complaint of a gout attack of her right foot and ankle 2 days prior on 07/30/2019. She has a history of gout and this is what the presumed diagnosis was. She was on prednisone at the time. She re-presented on the evening of 08/01/2019. She denies fevers sweats or chills. She is unable to bear weight on it. She denies nausea, vomiting, fevers or chills. Over the past 24 hours patients erythema at the ankle has improved. She has less pain with ROM of the ankle. She remains confused and agitated this am. Exam Vital Signs (past 8 hours): - 08/03/19 03:51 08/03/19 08:00 Temperature 98.8 F 97.9 F Pulse Rate 111 H 115 H Respiratory Rate 18 20 Blood Pressure 149/63 H 131/62 Pulse Oximetry 93 95 Oxygen Delivery Method Nasal Cannula Oxygen Flow Rate 3 Narrative Exam Narrative: Passive ROM of the right ankle with no pain. No skin breaks. Diffuse erythema throughout the dorsum of the foot, circumferential at the ankle and over the anterior tibia to mid leg, mild improvement from yesterday with abx. No tophi. The ankle is swollen, but not markedly so compared to contralateral side. Exam is hindered by significant dependent edema in BLE. No weeping of the skin, no cutaneous crepitance. No bullae. Objective Labs Result Diagrams: 08/03/19 05:20 08/03/19 05:20 Labs: Laboratory Results - last 24 hr 08/02/19 08/03/19 08/03/19 00:18 05:20 05:20 WBC 26.6 H RBC 2.51 L Hgb 8.1 L Hct 24.6 L MCV 98.1 MCH 32.2 MCHC 32.9 RDW 14.6 Plt Count 322 Neut % (Auto) Not Reportable Lymph % (Auto) Not Reportable [place] % (Auto) Not Reportable Eos % (Auto) Not Reportable Baso % (Auto) Not Reportable Lymph # (Auto) Not Reportable [place] # (Auto) Not Reportable Baso # (Auto) Not Reportable Total Counted 100 Seg Neutrophils % 86.0 H Band Neutrophils % 11.0 H Monocytes % (Manual) 2.0 Basophils % (Manual) 1.0 Neutrophils # (Manual) 52811 H RBC Morphology Not Reportable Macrocytosis 2+ H Sodium 139 Potassium 4.7 Chloride 99 Carbon Dioxide 33 H BUN 65 H Creatinine 1.20 H Estimated GFR 43.3 L BUN/Creatinine Ratio 54.2 H Glucose 125 H Calcium 10.1 Magnesium 3.0 H Total Bilirubin 0.4 Conjugated Bilirubin 0.0 Unconjugated Bilirubin 0.1 AST 36 ALT 50 H Alkaline Phosphatase 201 H Total Protein 6.7 Albumin 3.2 L Globulin 3.5 Albumin/Globulin Ratio 0.9 L A. baumannii (PCR) Not detected Arabella albicans (PCR) Not detected C. glabrata (PCR) Not detected C. krusei (PCR) Not detected C. parapsilosis (PCR) Not detected C. tropicalis (PCR) Not detected Enterobacteriac sp PCR Not detected E. cloacae complex PCR Not detected Enterococcus sp PCR Not detected E. coli (PCR) Not detected H. influenzae (PCR) Not detected Klebsiella oxytoca PCR Not detected Klebsiella pneumoniae Not detected List. monocytogenes PCR Not detected N. meningitidis (PCR) Not detected Proteus species (PCR) Not detected Serratia marcescens PCR Not detected Staphylococcus sp PCR Detected H Staph aureus (PCR) Detected H mecA-Methicil Res Gene Not detected Streptococcus sp PCR Not detected Group A Strep (PCR) Not detected Strep agalactiae (PCR) Not detected Strep pneumoniae (PCR) Not detected P. aeruginosa (PCR) Not detected [place]/B-Vanco Res Genes Not detected KPC-Carbap Res Gene PCR Not detected Assessment & Plan Assessment & Plan narrative: Leyda Nielsen is a 79 yo female with multiple medical comorbidities who I was consulted for suspicion of a septic joint and or gout attack. Her symptoms and presentation are most consistent with cellulitis, however septic ankle cannot be ruled out at this time. I cannot aspirate her right ankle joint without possible introducing bacteria from the cellulitis into the ankle. There is no clear window to perform aspiration. I will continue to follow patient's inpatient progress. She has improved a moderate amount from yesterday. Cellulitis of the right foot vs septic joint - Hold off on ankle aspiration at this time, if no improvement of symptoms with abx may consider ankle aspiration tomorrow - Recommend CT with contrast right lower extremity to assess for abscess, fascial edema, free air - slight improvement in infectious labs with abx - ceftriaxone 1 g IV daily (per medicine) - vancomycin dosed per pharmacy Gout exacerbation - uric acid of 12.9 Time Spent With Patient Time with patient: less than 15 minutes
--- NOTE | 2019-08-03 12:08 | PC.NURSE ---
Day shift: Pt has remained confused and unable to put complete sentences together. She was able to name the names of her 4 kids. Asked her about her grandkids and she said Too many. The echo was challenging as Pt confused restless. It was completed though at approx 1210. Pt on 3L NC w/ Spo2 of 94%. 1 on 1 by ROBERTO CARLOS Ibrahim and [place] is staying in the room to help Pt feel more relaxed. Pt seems to be less restless when staff is talking to her. Bed aalrm is on and call light in reach. 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 Tolerating IV fluids and oral fluid restriction in place by .
--- NOTE | 2019-08-03 12:30 | P.PN_ITS ---
Subjective Subjective Date Patient Seen: 08/03/19 Time Patient Seen: 12:30 Interval history: Leyda Nielsen is a 79-year-old oxygen-dependent female with paroxysmal atrial fibrillation, chronic diastolic CHF, COPD and plaque psoriasis who came into the emergency department with right lower extremity redness, swelling and pain. She remains confused, but according to nursing she did have a moment of clarity where she was able to take her medications this morning. S he is moaning for water quite frequently. She states her right leg pain is improved today, but has not ambulated. She was found to have Staph bacteremia, with sensitivities currently pending. She was seen by Orthopedic surgery who does not currently recommend an aspiration. Given no other sources and relatively stable appearance of her erythema have ordered her for a CT of her right lower extremity to evaluate for possible abscess or drainable collection. Her echocardiogram from today is pending. Exam Vital Signs (past 8 hours): - 08/03/19 08:00 08/03/19 12:00 Temperature 97.9 F 96.8 F L Pulse Rate 115 H 86 Respiratory Rate 20 20 Blood Pressure 131/62 123/54 L Pulse Oximetry 95 Oxygen Delivery Method Nasal Cannula Oxygen Flow Rate 3 Narrative Exam Narrative: GENERAL APPEARANCE: Ill-appearing, obese female, appears anxious, moaning and asking water. She is not diaphoretic. SKIN: Inspection of the skin reveals no rashes, ulcerations or petechiae. HEENT: Normocephalic atraumatic, extraocular muscles are intact, oropharynx is clear and mucous membranes are moist, neck is supple without adenopathy NECK: Supple and symmetric. There was no thyroid enlargement, and no tenderness, or masses were felt. CHEST: Normal AP diameter and normal contour without any kyphoscoliosis. LUNGS: Auscultation of the lungs revealed no wheezes, rhonchi, or rales. CARDIOVASCULAR: There was a regular rate and rhythm without any murmurs, gallops, rubs. Peripheral pulses were 2+ and symmetric. ABDOMEN: Soft and nontender with normal bowel sounds. No ascites was noted. MUSCULOSKELETAL: She is tender over her right ankle, given her obesity is difficult to tell if there is any swelling compared to her left. EXTREMITIES: No cyanosis, clubbing. There is circumferential erythema, mild, with warmth, over her right ankle. Extends somewhat into the forefoot and upper calf minimally. NEUROLOGIC: Alert and confused, but following commands. Will open eyes on command, but patient states that she has to try hard to do this. Objective Labs Result Diagrams: 08/03/19 05:20 08/03/19 05:20 Labs: Laboratory Results - last 24 hr 08/02/19 08/03/19 08/03/19 00:18 05:20 05:20 WBC 26.6 H RBC 2.51 L Hgb 8.1 L Hct 24.6 L MCV 98.1 MCH 32.2 MCHC 32.9 RDW 14.6 Plt Count 322 Neut % (Auto) Not Reportable Lymph % (Auto) Not Reportable [place] % (Auto) Not Reportable Eos % (Auto) Not Reportable Baso % (Auto) Not Reportable Lymph # (Auto) Not Reportable [place] # (Auto) Not Reportable Baso # (Auto) Not Reportable Total Counted 100 Seg Neutrophils % 86.0 H Band Neutrophils % 11.0 H Monocytes % (Manual) 2.0 Basophils % (Manual) 1.0 Neutrophils # (Manual) 13317 H RBC Morphology Not Reportable Macrocytosis 2+ H Sodium 139 Potassium 4.7 Chloride 99 Carbon Dioxide 33 H BUN 65 H Creatinine 1.20 H Estimated GFR 43.3 L BUN/Creatinine Ratio 54.2 H Glucose 125 H Calcium 10.1 Magnesium 3.0 H Total Bilirubin 0.4 Conjugated Bilirubin 0.0 Unconjugated Bilirubin 0.1 AST 36 ALT 50 H Alkaline Phosphatase 201 H Total Protein 6.7 Albumin 3.2 L Globulin 3.5 Albumin/Globulin Ratio 0.9 L A. baumannii (PCR) Not detected Arabella albicans (PCR) Not detected C. glabrata (PCR) Not detected C. krusei (PCR) Not detected C. parapsilosis (PCR) Not detected C. tropicalis (PCR) Not detected Enterobacteriac sp PCR Not detected E. cloacae complex PCR Not detected Enterococcus sp PCR Not detected E. coli (PCR) Not detected H. influenzae (PCR) Not detected Klebsiella oxytoca PCR Not detected Klebsiella pneumoniae Not detected List. monocytogenes PCR Not detected N. meningitidis (PCR) Not detected Proteus species (PCR) Not detected Serratia marcescens PCR Not detected Staphylococcus sp PCR Detected H Staph aureus (PCR) Detected H mecA-Methicil Res Gene Not detected Streptococcus sp PCR Not detected Group A Strep (PCR) Not detected Strep agalactiae (PCR) Not detected Strep pneumoniae (PCR) Not detected P. aeruginosa (PCR) Not detected [place]/B-Vanco Res Genes Not detected KPC-Carbap Res Gene PCR Not detected Assessment & Plan Assessment & Plan narrative: Leyda Nielsen is a 79-year-old oxygen-dependent female with paroxysmal atrial fibrillation, chronic diastolic CHF, COPD and plaque psoriasis who came into the emergency department with right lower extremity redness, swelling and pain. She was admitted over concern for possible cellulitis versus gout infection of her right lower extremity, however gout is seemingly unlikely given staph bacteremia. Will continue ceftriaxone and vancomycin pending blood culture sensitivities. 1. Staph bacteremia, present on admission -pending final culture and sensitivities -TTE has been performed and is currently pending -consider ID consultation or transfer for [facility]I -continue ceftriaxone and vancomycin pending cultures -source could potentially be her right lower extremity given the severity of her presentation. She has no evidence of pneumonia and no abdominal pain to suspect intra-abdominal source. -chest x-ray was unremarkable -ESR is markedly elevated. Will perform a CT of the right lower extremity today to evaluate for possible fluid collection given the only likely source at this time. Consider MRI for possible osteo once patient's confusion improves. 2. Cellulitis of the right foot and ankle vs septic joint, acute, present on ad mission -appreciate orthopedic consultation, Dr. Rm who will continue to follow -she has a leukocytosis of 32.4 on admission, improving with antibiotics now down to 26.6 -ceftriaxone 1 g IV daily -vancomycin dosed per pharmacy -ESR is extremely elevated at greater than 140, consider further evaluation for osteomyelitis as noted above 3. Sepsis, acute, present on admission -patient with Staph bacteremia, and evidence of organ dysfunction including toxic metabolic encephalopathy as well as elevated creatinine on admission. -continue antibiotics as noted above 4. Acute kidney injury, present on admission, improved -secondary to sepsis from stack bacteremia as noted above -continue IV fluids 5. Toxic metabolic encephalopathy, present on admission -continue management of sepsis as noted above, toxic metabolic encephalopathy is likely in the setting of sepsis. -CT head on admission was unremarkable. 6. History of gout with hyperuricemia, uric acid of 12.9 -unclear if this represents a gouty attack, will avoid steroids at this time given staph bacteremia. 7. Paroxysmal atrial fibrillation on anticoagulation, chronic, not present on admission -continue home dose of apixaban 5 mg p.o. b.i.d. -telemetry 8. Recent history of HFpEF, likely chronic and present on admission -1500 ml fluid restriction, strict Is and Os -Patient requests water all the time -Previous diuresis have been ineffective at high doses, she was to follow up with nephrology upon discharge in May and will need to obtain old records if available. She does not appear to be volume overloaded at this time and given Staph bacteremia and sepsis will continue IV fluids. Although if there is further evidence of volume overload will need to stop fluid resuscitation. -repeat echocardiogram pending for evidence of vegetations 9. Morbid obesity, chronic and present on admission -she has increased risk of complications due to her obesity 10. COPD on home O2, with chronic hypoxemic respiratory failure. Likely does not represent acute exacerbation -on home Spiriva and Symbicort, will replace here with formulary medications. 11. Psoriasis on Humira, chronic, improved -patient reports Humira injections every 2 weeks, with last dose approximately week and half ago. Pending further evaluation above she may need to discontinue Humira and follow-up with her stringed instrument repairer if she has heart failure. She re ports good response to Humira as far as her psoriasis. 12. Anemia, acute on chronic -unclear source of anemia at this time, may be secondary to fluid resuscitation in the setting of sepsis -hemoglobin on admission 8.8, decreased from apparent baseline -continue to follow CBC Consults: Dr. Rm, Orthpedic Surgery, consult and involvement is appreciated. Code: Full
[2019-08-03] MEDS: VANCOMYCIN 1,500 MG/300 ML FROZ.PIGGY 150 MG IV (13:06)
--- NOTE | 2019-08-03 13:46 | PC.NURSE ---
Day shift: Pt off unit for CT scan.
--- NOTE | 2019-08-03 14:08 | DI.CT.S_ITS ---
PROCEDURE: CT LE RT W CON INDICATIONS: Right lower leg Staph bacteremia, cellulitis, obese concern for abscess TECHNIQUE: After the administration of intravenous contrast, 3 mm axial sections acquired of the right lower leg, with coronal and sagittal reformats. COMPARISON: [facility], CR, XR ANKLE RT MIN 3V, 07/30/2019, 11:17. FINDINGS: Image quality: Suboptimal related to motion artifact near the level of the knee. Bones: There is no acute fracture, dislocation, or suspicious osseous lesion involving the imaged osseous structures of the right lower leg. No osseous erosions are evident. Please note that evaluation of the knee is limited, there are at least moderate degenerative changes present involving the knee joint. Plantar and Achilles spurs involving the calcaneus appear to be present. The alignment of the ankle mortise appears to be within normal limits. related to motion artifact. Soft tissues: Subcutaneous edema of the lower leg is evident. There are scattered subcutaneous rounded calcifications are identified, most likely related to chronic venous stasis. Multiple collateral veins are seen within the subcutaneous tissues. No drainable or loculated fluid collections are evident. However, if there is a moderate amount of fluid identified surrounding the medial flexor tendons, which demonstrates peripheral enhancement. The vascular structures of the right lower leg appear to be intact and are otherwise grossly unremarkable. Please note that the ligamentous, tendinous, and cartilaginous structures of the lower leg are not adequately characterized on CT. No soft tissue masses are appreciated. IMPRESSION: 1. Subcutaneous edema of the right lower leg may be related to chronic venous stasis or cellulitis. Please correlate clinically. 2. Small peripherally enhancing fluid collection within the medial aspect of the hindfoot probably at represents fluid within the tibialis posterior tendon sheath, suggestive of tenosynovitis. However, a small abscess cannot be completely excluded. 3. No fractures. 4. Moderate degenerative changes of the knee are not adequately characterized. Dictated by: Keshav Rivera M.D. on 08/03/2019 at 13:26 Approved by: Keshav Rivera M.D. on 08/03/2019 at 13:31
--- NOTE | 2019-08-03 14:32 | PC.NURSE ---
Day shift: Pt back on AC unit at this time. Pt remains confused. VS WNL. [address] TRAIN DRIVER in room.
[2019-08-03] MEDS: ACETAMINOPHEN 325 MG TABLET 650 MG PO ×2 (14:45→20:15)
[2019-08-03] MEDS: MONTELUKAST 10 MG TABLET PO (18:45)
[2019-08-03] MEDS: buPROPion XL 150 MG TAB PO (18:45)
--- NOTE | 2019-08-03 19:09 | PC.NURSE ---
Addendum entered by Crissy Masterson R.N. 08/03/19 21:59: Pt agitated at times w/no comforting. notified, new orders received. Daughter arrived & will spend noc. Pt much calmer @ this time. Call light w/in reach, bed alarm on for pt safety. Continue w/plan,of care. Addendum entered by Crissy Masterson R.N. 08/03/19 19:13: Tele shows A-fib/BBB per ICU staff. Original Note: Pt anxious @ times. Alert/confused. SpO2 93% 3L O2 BLE swollen, tender to touch. Although right is worse than left. Resting quietly @ this time. Call light w/in reach, bed alarm on & 1:1 care at this time.
[2019-08-03] MEDS: DOCUSATE 100 MG CAPSULE PO (20:15)
[2019-08-03] MEDS: MELATONIN 3 MG TABLET 6 MG PO (21:44)
[2019-08-03] MEDS: QUETIAPINE 25 MG TABLET 12.5 MG PO (21:45)
[2019-08-04] VITALS (9 sets, daily range): BP systolic 88–128; BP diastolic 46–83; PULSE 60–116; RESP 18–22; TEMP 36.1–37; O2SAT 91–97
[2019-08-04] MEDS: CEFTRIAXONE 1 GM/50 ML FROZ.PIGGY IV (00:26)
[2019-08-04] MEDS: ACETAMINOPHEN 325 MG TABLET 650 MG PO ×2 (02:56→10:08)
--- NOTE | 2019-08-04 05:10 | PC.NURSE ---
Pt confused and restless throughout the night. Trying to get out of bed reporting Let me go Louie CARSON aware, no orders given at this time. Pt moaning in bed, tylenol given for possible pain. WCJEMIMA. ROBERTO CARLOS Lockhart at bedside. Daughter also at bedside to help calm patient. Bed alarm set and call light within reach. Pt trilogy CPAP placed and patient worn for part of the night, later during the night refused to wear trilogy. 95% on 3-4L O2 throughout the night. Daughter reports that patient wears 3L O2 at home. Pt incontinent of urine. Weakness to upper and lower extremities when trying to exit bed. CMS intact in BLE extremities. Patient resting now in bed with occasional moans and squirming in bed. WCJEMIMA
--- NOTE | 2019-08-04 07:52 | PC.NURSE ---
Addendum entered by Amada Dubois R.N. 08/04/19 15:49: Daughter Db asked about two of pt's home medications (Humira and calcitonin salmon). Dr. Corbett stated that she will not be ordering Humira due to infection and will look into the nasal spray. Addendum entered by Amada Dubois R.N. 08/04/19 14:35: Granddaughter, Safia, called and asked for an update. Since I did not see any permission in chart, I called and left a VM with medical POA son, Abdulaziz. Addendum entered by Amada Dubois R.N. 08/04/19 13:57: Dr. Corbett ordered HOB to be elevated at least 30 degrees at all times, ABG's, and for the pt's Trilogy to be on at all times when resting/sleeping. pt is very irritated and repeating I gotta know and I gotta go. MUSIC MINISTER and I have placed pt on Bedpan several times and changed brief twice in the last hour. pt has been wet the two brief changes and zero urine output in bedpan. Addendum entered by Amada Dubois R.N. 08/04/19 11:15: RT assisted with breathing treatments after patient yelling I can't breath several times. pt more relaxed and O2 low-mid 90's on 3L NC. pt moving NC often and is also mouth breathing. Very restless and unable to fall asleep. pt reporting pain to right foot so I administered 650mg Tylenol at 1000 and placed two ice packs to foot around 1045. PIV infused ABX and pt tolerated well. pt using bedpan with total assistance and repeats I need to go to alert that she needs to void. Refusing SCD's. Addendum entered by Amada Dubois R.N. 08/04/19 09:06: pt 1:1 with RN at door and daughter in room. pt unable to follow simple commands like open your eyes instead pt opened mouth. It took myself and daughter 30 min or so to get patient to swallow water and AM medications due to lack of following commands. pt able to swallow PO medications safely without any coughing. pt continues to be restless with intermitted, productive coughs. pt is also repeating I want to know. pt is calmed by daughter. pt is moving upper body independently and does not move lower extremities much. Right foot it warm to the touch and +2 edema. Left foot also has +2 edema but temperature is WNL. Original Note: AM shift. pt confused and perseverating phrases like I gotta go and woah, woah. pt moaning and expressing pain to back. Tylenol administered on NOC shift at 0300 and no other medications available until 0900 so an ice pack was placed to pt back. pt used bedpan and voided 275ml cloud yellow. Taking sips of water. Tele read BBB and aFIB at 0400. Left forearm PIV visually assessed. O2 95-99% at 5L NC and titrated to 3.5L NC. Refusing SCD's. Daughter, Db, in room and assisting with calming pt. Asked daughter about advanced directives, she states that she is unsure if anything is on file here at [facility] and that her brother is her medical POA and will ask when she speaks to him next. Fluid restriction of 550 for AM shift has yet to begin as there is still water remaining from NOC shift. Scattered bruising to all extremities and to left back. Daughter states pt had a fall at home before admission.
[2019-08-04] MEDS: buPROPion XL 150 MG TAB PO (08:20)
[2019-08-04] MEDS: DOCUSATE 100 MG CAPSULE PO ×2 (08:21→20:55)
[2019-08-04] MEDS: TIOTROPIUM BROMIDE 2 EACH INH ×2 (08:21→10:22)
[2019-08-04] MEDS: APIXABAN 5 MG TABLET PO ×2 (08:21→20:55)
[2019-08-04] MEDS: CEFTRIAXONE 2 GM/50 ML FROZ.PIGGY IV (08:41)
[2019-08-04 08:45] LABS: Add Manual Diff / Slide Review NO; Basophils Absolute Auto 0 /uL (0-100); Eosinophils Absolute Auto 100 /uL (0-450); Eosinophils Percent Auto 0.5 % (2-4); Hemoglobin 7.3 g/dL (12.0-16.0); Lymphocytes Absolute Auto 600 /uL (1100-4500); Lymphocytes Percent Auto 2.7 % (25-40); Mean Corpuscular HGB Conc 31.7 % (30-36); Mean Corpuscular Hemoglobin 31.7 PG (26-34); Mean Corpuscular Volume 100.1 fL (80-100); Monocytes Absolute Auto 1000 /uL (0-900); Monocytes Percent Auto 4.7 % (3-14); Neutrophils Absolute Auto 20200 /uL (1500-7000); Neutrophils Percent Auto 92.1 % (50-75); Platelet Count 314 X10^3/uL (150-400); Red Cell Distribution Width 15.2 % (11.6-14.8)
[2019-08-04 08:55] LABS: Uric Acid 11.1 mg/dL (2.5-6.2)
[2019-08-04 08:56] LABS: Alanine Aminotransferase 37 IU/L (<35); Albumin 3.1 g/dL (3.5-5.0); Albumin Globulin Ratio 0.9 (1.0-2.8); Alkaline Phosphatase 171 U/L (38-126); Aspartate Aminotransferase 26 IU/L (14-36); Bilirubin Total 0.3 mg/dL (0.2-1.3); Bilirubin Unconjugated 0.1 mg/dL (0.0-1.1); Blood Urea Nitrogen 51 mg/dL (7-17); Calcium 10.3 mg/dL (8.4-10.2); Carbon Dioxide 34 mmol/L (22-32); Chloride 104 mmol/L (98-107); Estimated Glomerular Filt Rate 53.5 mL/min (>60); Globulin 3.5 g/dL (1.7-4.1); Glucose 121 mg/dL (80-110); HEMOLYSIS < 15 (0-50); Magnesium 2.9 mg/dL (1.6-2.3); Potassium 4.1 mmol/L (3.4-5.1); Sodium 142 mmol/L (137-145); Total Protein 6.6 g/dL (6.3-8.2)
[2019-08-04] MEDS: SODIUM CHLORIDE 0.9% FLUSH 10 ML IV (09:06)
--- NOTE | 2019-08-04 09:10 | PC.NURSE ---
Addendum entered by Amada Dubois R.N. 08/04/19 15:11: pt completed AM fluid portion of 550mL at 1430 and begging for water. We utilized swabs to help get pt to 1500. Original Note: Fluid restriction 08/04/2019. pt completed NOC 400ML at 0840 and provided with 150mL for AM PO medication administration. pt only took a couple sips and cup is on bedside table.
[2019-08-04 09:30] LABS: Procalcitonin 1.24 ng/mL (<0.5)
[2019-08-04] MEDS: BUDESONIDE FORMOTEROL 1 EACH INH (10:23)
[2019-08-04] MEDS: ALBUTEROL 2.5 MG/3 ML NEB (ADULT) INH (10:30)
--- NOTE | 2019-08-04 12:52 | PM.PN.1 ---
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 The patient is lying in bed sleeping. She is quite somnolent and has a very difficult time staying aroused. She is alert and oriented x3 when you are able to maintain her attention. She is likely hypercarbic and and ABG is pending. Her infectious markers are improving, however, her ankle appears to have a new fluctuant mass on lateral aspect of dorsum of foot. Per previous providers medial mass on dorsum of foot is not new. She continues to have mild erythema and edema to pretibial area. She has MSSA bacteremia and continue ceftriaxone and have stopped vancomycin. Discontinued IV fluids to avoid fluid overload. Exam Vital Signs (past 8 hours): - 08/04/19 06:27 08/04/19 07:49 08/04/19 10:33 Temperature 97.7 F Pulse Rate 116 H 113 H 95 H Respiratory Rate 18 20 20 Blood Pressure 88/63 L Pulse Oximetry 95 94 08/04/19 11:24 Temperature 98.6 F Pulse Rate 106 H Respiratory Rate 20 Blood Pressure 101/46 L Pulse Oximetry 95 Oxygen Delivery Method Nasal Cannula Oxygen Flow Rate 3 Narrative Exam Narrative: General: Elderly female lying in bed sleeping and in no acute distress, well-developed, well-nourished, somnolent and difficult to arouse. HEENT: Normocephalic, atraumatic. External ears without defect. Pupils equal, round, and reactive to light. Anicteric sclerae, moist conjunctivae, and no lid lag. Oropharynx free of erythema and cobble stoning with moist mucosa. Neck: Supple with full range of motion. No jugular venous distension. No lymphadenopathy or thyromegaly. Cardiovascular: Irregularly irregular without murmurs, rubs, or gallops appreciated Pulmonary: Clear to auscultation bilaterally in anterior lung simons without crackles, wheezes, or rhonchi. Normal respiratory effort with no use of accessory muscles. Abdomen: Soft, obese, bowel sounds present, nontender, nondistended. No hepatosplenomegaly or masses appreciated. Extremities: No clubbing, cyanosis, or edema of other extremities. Scattered ecchymosis throughout upper extremities. Right foot with two fluctuant masses, 1 medial and 1 lateral, that appear to be evolving abscesses. Right foot with mild erythema and edema consistent with cellulitis to pretibial area. Right balling head tender to palpation. Skin: Normal temperature, turgor, and texture; no rash, ulcers, or subcutaneous nodules appreciated. Neurological: Cranial nerves grossly intact. Psychiatric: Patient is oriented to person, place, and time when able to keep her aroused. Intermittent confusion and delirium. Objective Labs Result Diagrams: 08/04/19 08:36 08/04/19 08:36 Labs: Laboratory Results - last 24 hr 08/04/19 08/04/19 08/04/19 08:36 08:36 08:36 WBC 22.0 H RBC 2.30 L Hgb 7.3 L Hct 23.0 L MCV 100.1 H MCH 31.7 MCHC 31.7 RDW 15.2 H Plt Count 314 Neut % (Auto) 92.1 H Lymph % (Auto) 2.7 L [place] % (Auto) 4.7 Eos % (Auto) 0.5 L Baso % (Auto) 0.0 Neut # (Auto) 94241 H Lymph # (Auto) 600 L Stark # (Auto) 1000 H Eos # (Auto) 100 Baso # (Auto) 0 Sodium 142 Potassium 4.1 Chloride 104 Carbon Dioxide 34 H BUN 51 H Creatinine 1.00 Estimated GFR 53.5 L BUN/Creatinine Ratio 51.0 H Glucose 121 H Uric Acid 11.1 H Calcium 10.3 H Magnesium 2.9 H Total Bilirubin 0.3 Conjugated Bilirubin 0.0 Unconjugated Bilirubin 0.1 AST 26 ALT 37 H Alkaline Phosphatase 171 H Total Protein 6.6 Albumin 3.1 L Globulin 3.5 Albumin/Globulin Ratio 0.9 L Procalcitonin 08/04/19 08:36 WBC RBC Hgb Hct MCV MCH MCHC RDW Plt Count Neut % (Auto) Lymph % (Auto) [place] % (Auto) Eos % (Auto) Baso % (Auto) Neut # (Auto) Lymph # (Auto) [place] # (Auto) Eos # (Auto) Baso # (Auto) Sodium Potassium Chloride Carbon Dioxide BUN Creatinine Estimated GFR BUN/Creatinine Ratio Glucose Uric Acid Calcium Magnesium Total Bilirubin Conjugated Bilirubin Unconjugated Bilirubin AST ALT Alkaline Phosphatase Total Protein Albumin Globulin Albumin/Globulin Ratio Procalcitonin 1.24 H Assessment & Plan Assessment & Plan narrative: Leyda Nielsen is a 79-year-old female with a past medical history significant for paroxysmal atrial fibrillation, diastolic CHF, chronic hypoxemic and hypercarbic 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 1. MSSA bacteremia and right foot cellulitis with probable abscesses and possible septic joint, present on admission. Active. -Blood cultures preliminarily positive for staph in 4:4 bottles with sensitivities pending. Source felt to be her right lower extremity given the severity of her presentation. She has no evidence of pneumonia as chest x-ray unremarkable and no abdominal pain to suspect intra-abdominal source. -Echocardiogram did not demonstrate any hemodynamically significant valvular abnormalities or obvious vegetation. -Continue ceftriaxone 2 g IV daily. Discontinue vancomycin with dosing per pharmacist as blood cultures grew MSSA. -ESR is markedly elevated at > 140. -CT of the right lower extremity with contrast demonstrated subcutaneous edema of the right lower leg, small peripherally enhancing fluid collection within the medial aspect of the hindfoot probably at represents fluid within the tibialis posterior tendon sheath, suggestive of tenosynovitis. However, a small abscess cannot be completely excluded. No fractures. Moderate degenerative changes of the knee are not adequately characterized. -Initial WBC 32.4 and trending down now 22.0. Procalcitonin initially negative at 0.19 and peaked at 4.93 now trending down at 1.24. Continue to monitor WBC and procalcitonin daily. -Consulted orthopedic surgery, Dr. Rm, and we appreciate his time and recommendations. Orthopedic surgery is considering I&D of bilateral evolving abscesses on dorsum of foot. 2. Acute metabolic encephalopathy, present on admission. Improving. -Continue to treat infection as above. -CT brain without contrast did not demonstrate any acute intracranial abnormalities. -Continue to avoid [employer] depressant medications and reorient and redirect frequently. -Continue Seroquel 25 mg daily at bedtime. Instructed nursing staff to try to keep patient awake and stimulated throughout day and allow uninterrupted sleep with minimal interruptions at night. 3. Acute sepsis, present on admission. Resolved. -Patient presented with leukocytosis and tachycardia with evidence of organ dysfunction including metabolic encephalopathy and DOM with staph bacteremia from sore right lower extremity cellulitis, probable abscesses and possible septic joint. -Early goal directed therapy met including: IV antibiotics and IV fluid resuscitation. 4. Possible gout exacerbation with hyperuricemia, present on admission. -Initial uric acid of 12.9. Repeat uric acid 11.1. Patient has history of gout but is not on uric acid lowering medication at home? -Unclear if this represents a gouty attack. Patient has had several courses of prednisone as an outpatient over last 2 weeks. Plan to avoid steroids at this time given staph bacteremia. -Will plan to start uric acid lowering medication prior to discharge. 5. Acute kidney injury on possible CKD stage 3, present on admission. Acute kidney injury resolved. -Secondary to sepsis, infection and hypermetabolic state. -Initial creatinine 1.39 and trended up to 1.82. Creatinine now down to 1.0 and likely falsely low due to IV fluid administration. Baseline creatinine unknown but appears to be 1.3. -Continued IV fluids until adequately hydrated then discontinued. -Avoid nephrotoxic agents. -Continue to monitor renal function daily. 6. Chronic hypoxemic and hypercarbic respiratory failure, secondary to oxygen dependent COPD, present on admission. Stable. -Does not represent COPD exacerbation. -Continue home Spiriva and Symbicort with hospital formulary medications. -Continue supplemental oxygen to maintain oxygen saturation 88-92% (do not over oxygen a as will Dr. carlisle). Patient currently at baseline oxygen requirement of 3-3.5 L. Continue trilogy at all times while sleeping or napping. 7. Paroxysmal atrial fibrillation on Eliquis, chronic, present on admission. Stable. -Continue home apixaban 5 mg twice daily. 8. Diastolic congestive heart failure, present on admission. Stable. -Does not represent CHF exacerbation. -Held metolazone and spironolactone. Previous diuresis have been ineffective at high doses and she he was to follow up with nephrology upon discharge in May which is unclear if pursued. -Continue 1.5 L fluid restriction, strict I&Os and daily weights. Net + 1.5 L. -Discontinued IV fluids to avoid volume overload. -Repeated echocardiogram as above to assess for valvular vegetations. 9. Morbid obesity, chronic, present on admission. Stable. -BMI 46.2. -Patient has increased risk of complications due to her morbid obesity. Plan to admitting counselor patient on lifestyle modification including diet and exercise when mentation improves. 10. Psoriasis on Humira, chronic, present on admission. Stable. -Patient receives Humira injections every 2 weeks, with last dose approximately week and half prior to admission. She reports good response of plaque psoriasis to Humira. -Discontinued Humira and will have patient follow-up with her job placement specialist. 11. Normocytic anemia, acute on chronic, present on admission. -Likely secondary to hemodilution from IV fluid resuscitation in the setting of sepsis. -Initial hemoglobin 8.8. Baseline hemoglobin 10-12. Hemoglobin trending down now 7.3. No overt signs of bleeding. Transfusion goal hemoglobin < 7.0. -Continue to monitor CBC daily. Code status: Full Code DVT prophylaxis: Janinaqutam Disposition: Patient remains inpatient for severe right foot infection.
[2019-08-04 13:22] LABS: pH ABG 7.32 (7.35-7.45)
[2019-08-04 13:23] LABS: Fractionated Inspired Oxygen 32; HCO3 ABG 36 mmol/L (22-26); Oxygen Saturation ABG 90 % (95-100); PO2 ABG 67 mmHg (80-100); TCO2 ABG 38 mmol/L (21-31)
[2019-08-04 13:24] LABS: PCO2 ABG 69.1 mmHg (35-45)
--- NOTE | 2019-08-04 13:25 | OT.IPNOTE ---
Nursing best to hold pt for OT eval as not medically appropriate at this time, to check on the pt tomorrow.
--- NOTE | 2019-08-04 13:25 | PT-IP ANOTE ---
checked with nurse and stated that pt is not a good candidate at this time. stated that Abg test was done and currently has trilogy bipap on. will f/u on pt tomorrow.
--- NOTE | 2019-08-04 13:52 | PC.NURSE ---
ABG's obtained 1315 pH 7.324, PCO2 69.1, PO2 67, HC03 35.9. Trilogy was placed on the pt per RT and operating. pt is still experiencing short term memory deficits and yelling and moaning. Dr. Corbett ordered HOB to be elevated to at least 30 degrees, her Trilogy is to be on at all times that she sleeps.
--- NOTE | 2019-08-04 14:34 | PC.NURSE ---
Addendum entered by Amada Dubois R.N. 08/04/19 15:40: Spoke to Abdulaziz on the phone. Abdulaziz states that he is the only medical POA and can email a copy of paperwork but does not have access to a fax. He also stated that pt's PCP has the paperwork on file. SW has already obtained a copy of pt's advanced directives (placed in chart) and is still working on POA copies. Abdulaziz also stated that all local family can receive status updates if they call in. Addendum entered by Amada Dubois R.N. 08/04/19 15:12: Daughter Db states she and Abdulaziz are co- medical POA's and that she doesn't have any copies of the paperwork. I got with SW team and they are going to reach out to pt's PCP office for advance directives and POA. Original Note: Medical POA is son Abdulaziz Nielsen (lives in [place]) .
--- NOTE | 2019-08-04 15:11 | CM.DPC ---
DCP Cont: Per MD, pt had a moment of being alert and oriented when she rounded on pt bedside and pt needed some Seroquel overnight due to some agitation and requiring a sitter and ordered PT/OT to eval as pt has not been able to ambulate yet. Per PT/OT, pt was not able to be evaluated today as she is having CO2 issues and not alert and oriented or medically appropriate to eval today and will attempt tomorrow. Pt's Dtr Db has been staying bedside overnight to help keep pt calm and per RN Dtr Db states that she and her brother Abdulaziz in [place] have dual DPOA but Abdulaziz has all the pwk but she believes there is a copy at pt's PCP office [facility]. SW called [facility] and confirmed they have a copy from 2002 on file and will fax. SW received fax and placed one copy on pt's chart for RN to review and kept one copy on pt's facesheet. Plan: SW to follow closely for PT/OT eval tomorrow if pt medically appropriate to participate and likely need of SNF vs HH pending pt's progress. JACKELIN Macdonald
--- NOTE | 2019-08-04 16:06 | P.PN_ITS ---
Subjective Subjective Date Patient Seen: 08/04/19 Time Patient Seen: 16:06 Interval history: Continues to be confused. She appears to have less pain in the right ankle. I am able to flex and extend the ankle without complaints. She is markedly TTP over the dorsum of the foot. Exam Vital Signs (past 8 hours): - 08/04/19 10:33 08/04/19 11:24 08/04/19 15:36 Temperature 98.6 F 97.0 F L Pulse Rate 95 H 106 H 60 Respiratory Rate 20 20 20 Blood Pressure 101/46 L 128/83 Pulse Oximetry 94 95 93 Oxygen Delivery Method Nasal Cannula Oxygen Flow Rate 3 Narrative Exam Narrative: No pain with DF/PF of the ankle. TTP throughout the dorsum of the foot. Pitting edema. No bullae or lesions. Objective Labs Result Diagrams: 08/04/19 08:36 08/04/19 08:36 Labs: Laboratory Results - last 24 hr 08/04/19 08/04/19 08/04/19 08:36 08:36 08:36 WBC 22.0 H RBC 2.30 L Hgb 7.3 L Hct 23.0 L MCV 100.1 H MCH 31.7 MCHC 31.7 RDW 15.2 H Plt Count 314 Neut % (Auto) 92.1 H Lymph % (Auto) 2.7 L [place] % (Auto) 4.7 Eos % (Auto) 0.5 L Baso % (Auto) 0.0 Neut # (Auto) 21296 H Lymph # (Auto) 600 L [place] # (Auto) 1000 H Eos # (Auto) 100 Baso # (Auto) 0 ABG pH ABG pCO2 ABG pO2 ABG HCO3 ABG Total CO2 ABG O2 Saturation ABG Base Excess FiO2 Sodium 142 Potassium 4.1 Chloride 104 Carbon Dioxide 34 H BUN 51 H Creatinine 1.00 Estimated GFR 53.5 L BUN/Creatinine Ratio 51.0 H Glucose 121 H Uric Acid 11.1 H Calcium 10.3 H Magnesium 2.9 H Total Bilirubin 0.3 Conjugated Bilirubin 0.0 Unconjugated Bilirubin 0.1 AST 26 ALT 37 H Alkaline Phosphatase 171 H Total Protein 6.6 Albumin 3.1 L Globulin 3.5 Albumin/Globulin Ratio 0.9 L Procalcitonin 08/04/19 08/04/19 08:36 13:08 WBC RBC Hgb Hct MCV MCH MCHC RDW Plt Count Neut % (Auto) Lymph % (Auto) [place] % (Auto) Eos % (Auto) Baso % (Auto) Neut # (Auto) Lymph # (Auto) [place] # (Auto) Eos # (Auto) Baso # (Auto) ABG pH 7.32 L ABG pCO2 69.1 H* ABG pO2 67 L ABG HCO3 36 H ABG Total CO2 38 H ABG O2 Saturation 90 L ABG Base Excess 10.0 H FiO2 32 Sodium Potassium Chloride Carbon Dioxide BUN Creatinine Estimated GFR BUN/Creatinine Ratio Glucose Uric Acid Calcium Magnesium Total Bilirubin Conjugated Bilirubin Unconjugated Bilirubin AST ALT Alkaline Phosphatase Total Protein Albumin Globulin Albumin/Globulin Ratio Procalcitonin 1.24 H Assessment & Plan Assessment & Plan narrative: Leyda Nielsen is a 79 yo female with multiple medical comorbidities who I was consulted for suspicion of a septic joint and or gout attack. Her symptoms and presentation are most consistent with cellulitis, however septic ankle cannot be ruled out at this time. I cannot aspirate her right ankle joint without possible introducing bacteria from the cellulitis into the ankle. There is no clear window to perform aspiration. I will continue to follow patient's inpatient progress. She continues to show moderate amount of improvement from yesterday. Cellulitis of the right foot vs septic joint - Hold off on ankle aspiration at this time, if no improvement of symptoms with abx may consider ankle aspiration tomorrow - Recommend CT with contrast right lower extremity to assess for abscess, fascial edema, free air - No abscess, no free air on CT, no bony changes - slight improvement in infectious labs with abx - ceftriaxone 2 g IV daily (per medicine) - vancomycin dosed per pharmacy - elevate RLE, consider light compression to help combat edema Gout exacerbation - uric acid of 12.9 Time Spent With Patient Time with patient: less than 15 minutes
[2019-08-04] MEDS: METOPROLOL TARTRATE 5 MG/5 ML INJ IV (17:12)
--- NOTE | 2019-08-04 17:48 | DI.RAD.S_ITS ---
PROCEDURE: XR CHEST 1V INDICATIONS: Short of breath TECHNIQUE: One view of the chest was acquired. COMPARISON: [facility], CT, KIDNEY/ URETER/BLADDER, 05/22/2016, 11:53. [facility], CR, XR CHEST 1V, 05/24/2019, 14:59. [facility], CR, XR CHEST 1V, 08/02/2019, 18:24. FINDINGS: Surgical changes and devices: Thoraco-lumbar vertebroplasty cement can be seen. Lungs and pleura: Interstitial prominence can be seen. No large pneumothorax or large pleural effusions are seen. Mediastinum: The cardiac contours are moderately enlarged. The aorta demonstrates calcification and tortuosity. Bones and chest wall: No suspicious bony lesions. Age-appropriate bony degenerative changes are seen. Overlying soft tissues appear unremarkable. IMPRESSION: Moderate cardiomegaly and interstitial prominence. Please correlate with patient presentation, physical examination findings, and laboratory values for congestive heart failure. Thoracolumbar vertebroplasty cement noted. Dictated by: Rober Morocho M.D. on 08/04/2019 at 17:06 Approved by: Rober Morocho M.D. on 08/04/2019 at 17:08
--- NOTE | 2019-08-04 17:52 | CM.DPC ---
Per DPOA paperwork from PCP office on [facility] and her brother Abdulaziz share dual DPOA.
[2019-08-04] MEDS: QUETIAPINE 25 MG TABLET PO ×2 (18:02→22:16)
--- NOTE | 2019-08-04 18:20 | PC.NURSE ---
Addendum entered by Crissy Masterson R.N. 08/04/19 22:26: 1900 - 2330 Pt was calm for approximately 1.25hrs after seroquil. Became more agitated again and attempting to get out of bed & taking trilogy off frequently. + Second dose of seroquil ordered, Tele shows afib per ICU staff. Daughter in room. Call light w/in reach, bed alarm on for pt safety. Continue w/plan fo care, Original Note: [id number] -- Pt very agitated early portion of shift. Moaning loudly & moving around in bed, refusing to keep trilogy in place. Tele ST to 160's, IVP metoprolol given by staff nuclear weapons officer. notified & saw pt. ABG's drawn. CO2 58 Pulse 87 now. Seroquil given as per orders. Also placed pt onto a edvin bed for comfort Trilogy in place & pt appears comfortable & resting @ this time. Daughter in room, call light w/in reach w/bed alrm on for pt safety.
[2019-08-04 18:21] LABS: PO2 ABG 58 mmHg (80-100); pH ABG 7.38 (7.35-7.45)
[2019-08-04 18:22] LABS: HCO3 ABG 35 mmol/L (22-26); Oxygen Saturation ABG 89 % (95-100); TCO2 ABG 36 mmol/L (21-31)
[2019-08-04 18:23] LABS: Fractionated Inspired Oxygen 44
[2019-08-04] MEDS: MELATONIN 3 MG TABLET 6 MG PO (20:55)
[2019-08-05] VITALS (39 sets, daily range): BP systolic 69–163; BP diastolic 41–77; PULSE 73–124; RESP 12–25; TEMP 31.1–37.6; O2SAT 85–98
--- NOTE | 2019-08-05 00:31 | PC.NURSE ---
Addendum entered by Tila Cox R.N. 08/05/19 05:13: Seroquel helpful initially for sleep. Slept for 2-3 hours but has been awake since. Patient has been focused on Trilogy machine and cannot be convinced that it is her machine. RT has been up to evaluate twice. Original Note: Shift note: Patient confused and agitated at start of shift. Calling out and restless in bed. RT in to see patient to manage trilogy, patient removing mask which results in desaturations. Lung sounds clear but diminished, no observable cough. Trilogy mask leaking at chin. Attempted to reposition, called RT for assistance d/t patient's saturations at 73%. RT able to achieve seal. Repositioned patient in bed, head elevated with slight trendelenberg to avoid sliding and chin to chest movement. Patient leans to right side. Patient uses bed andrew and brief. Fluid restriction observed. Tele: Afib w/ BBB Once mask had proper seal patient appeared to be able to rest. 1:1 sitter available when needed. High fall risk d/t confusion, hx of falls, and weakness.
--- NOTE | 2019-08-05 07:36 | PM.PN.1 ---
Subjective Subjective Date Patient Seen: 08/05/19 Time Patient Seen: 07:36 Interval history: Patient has continued confusion/delerium. Since I last saw her yesterday evening she has developed two fluctuant pockets on the foot, one medial and one lateral. Concern for abscess. The CT scan was read as no abscess, however I am suffeciently concerned by her new findings that I think she needs to go to the OR for I&D. Exam Vital Signs (past 8 hours): - 08/05/19 00:00 08/05/19 04:25 08/05/19 04:57 Temperature 97.7 F 98.2 F Pulse Rate 100 H 88 Respiratory Rate 20 18 Blood Pressure 131/75 109/63 Pulse Oximetry 92 95 96 Oxygen Delivery Method BiPAP Oxygen Flow Rate 5 Narrative Exam Narrative: Continued confusion TTP over the dorsum of the foot, 2 evolving fluctant mases, one medial and one lateral. Objective Labs Result Diagrams: 08/04/19 08:36 08/04/19 08:36 Labs: Laboratory Results - last 24 hr 08/04/19 08/04/19 08/04/19 08:36 08:36 08:36 WBC 22.0 H RBC 2.30 L Hgb 7.3 L Hct 23.0 L MCV 100.1 H MCH 31.7 MCHC 31.7 RDW 15.2 H Plt Count 314 Neut % (Auto) 92.1 H Lymph % (Auto) 2.7 L Jackson % (Auto) 4.7 Eos % (Auto) 0.5 L Baso % (Auto) 0.0 Neut # (Auto) 01845 H Lymph # (Auto) 600 L Jackson # (Auto) 1000 H Eos # (Auto) 100 Baso # (Auto) 0 ABG pH ABG pCO2 ABG pO2 ABG HCO3 ABG Total CO2 ABG O2 Saturation ABG Base Excess FiO2 Sodium 142 Potassium 4.1 Chloride 104 Carbon Dioxide 34 H BUN 51 H Creatinine 1.00 Estimated GFR 53.5 L BUN/Creatinine Ratio 51.0 H Glucose 121 H Uric Acid 11.1 H Calcium 10.3 H Magnesium 2.9 H Total Bilirubin 0.3 Conjugated Bilirubin 0.0 Unconjugated Bilirubin 0.1 AST 26 ALT 37 H Alkaline Phosphatase 171 H Total Protein 6.6 Albumin 3.1 L Globulin 3.5 Albumin/Globulin Ratio 0.9 L Procalcitonin 08/04/19 08/04/19 08/04/19 08:36 13:08 17:56 WBC RBC Hgb Hct MCV MCH MCHC RDW Plt Count Neut % (Auto) Lymph % (Auto) Jackson % (Auto) Eos % (Auto) Baso % (Auto) Neut # (Auto) Lymph # (Auto) Jackson # (Auto) Eos # (Auto) Baso # (Auto) ABG pH 7.32 L 7.38 ABG pCO2 69.1 H* 58.0 H ABG pO2 67 L 58 L ABG HCO3 36 H 35 H ABG Total CO2 38 H 36 H ABG O2 Saturation 90 L 89 L ABG Base Excess 10.0 H 10.0 H FiO2 32 44 Sodium Potassium Chloride Carbon Dioxide BUN Creatinine Estimated GFR BUN/Creatinine Ratio Glucose Uric Acid Calcium Magnesium Total Bilirubin Conjugated Bilirubin Unconjugated Bilirubin AST ALT Alkaline Phosphatase Total Protein Albumin Globulin Albumin/Globulin Ratio Procalcitonin 1.24 H Assessment & Plan Assessment & Plan narrative: Leyda Nielsen is a 79 yo female with multiple medical comorbidities who I was consulted for suspicion of a septic joint and or gout attack. Her symptoms and presentation are worsening however I cannot aspirate her right ankle joint without possible introducing bacteria from the cellulitis into the ankle. There is no clear window to perform aspiration. Patient was improving until last 24 hours. At this point I think patient needs an urgent I&D of the foot with possible arthrotomy. Abscess vs. septic ankle - OCTOR today for I&D Time Spent With Patient Time with patient: 15-24 minutes
--- NOTE | 2019-08-05 08:28 | PM.PN.1 ---
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 Interval history: The patient was found to be hypercarbic yesterday morning with pCO2 69. The patient's trilogy was put in place for the remainder of the day with improvement of her pCO2 to 58 which is likely close to her baseline. The patient had intermittent delirium with agitation and received Seroquel 25 mg x 2 doses over the course of the yesterday evening and overnight. The patient is lying in bed sleeping. She is more arousable and coherent today. She is able to follow conversation and is alert oriented x3 when she is able to stay aroused. She continues to keep her eyes closed throughout my exam which she reports she is resting but she is at times somnolent. The patient's daughter Db is at bedside and reports the patient had a very difficult night and was significantly agitated and confused. Discussed case with Dr. Rm who plans to take patient to the OR for I&D of bilateral dorsal abscesses. She endorses pain in her right lower extremity but is able to sleep. The patient has no other complaints and denies headache, chest pain, shortness of breath, abdominal pain, nausea, vomiting, fever, chills, dysuria, diarrhea constipation. She is voiding and eliminating without difficulty. Exam Vital Signs (past 8 hours): - 08/05/19 04:25 08/05/19 04:57 Temperature 98.2 F Pulse Rate 88 Respiratory Rate 18 Blood Pressure 109/63 Pulse Oximetry 95 96 Oxygen Delivery Method BiPAP Oxygen Flow Rate 5 Narrative Exam Narrative: General: Elderly female lying in bed sleeping and in no acute distress, well-developed, well-nourished, somnolent but arousable. HEENT: Normocephalic, atraumatic. External ears without defect. Pupils equal, round, and reactive to light. Anicteric sclerae, moist conjunctivae, and no lid lag. Oropharynx free of erythema and cobble stoning with moist mucosa. Neck: Supple with full range of motion. No jugular venous distension. No lymphadenopathy or thyromegaly. Cardiovascular: Irregularly irregular without murmurs, rubs, or gallops appreciated Pulmonary: Clear to auscultation bilaterally in anterior lung simons without crackles, wheezes, or rhonchi. Normal respiratory effort with no use of accessory muscles. Abdomen: Soft, obese, bowel sounds present, nontender, nondistended. No hepatosplenomegaly or masses appreciated. Extremities: No clubbing, cyanosis, or edema of other extremities. Scattered ecchymosis throughout upper extremities. Right foot with two fluctuant masses, 1 medial and 1 lateral, that appear to be evolving abscesses and enlarging. Right foot with mild erythema and edema consistent with cellulitis to pretibial area. Right atmospheric drier tender to palpation. Neurological: Cranial nerves grossly intact. Psychiatric: Patient is oriented to person, place, and time when she is able to stay aroused. Somnolence. Intermittent confusion and delirium ongoing. Objective Labs Result Diagrams: 08/05/19 08:00 08/05/19 08:00 Labs: Laboratory Results - last 24 hr 08/04/19 08/04/19 08/04/19 08:36 08:36 08:36 WBC 22.0 H RBC 2.30 L Hgb 7.3 L Hct 23.0 L MCV 100.1 H MCH 31.7 MCHC 31.7 RDW 15.2 H Plt Count 314 Neut % (Auto) 92.1 H Lymph % (Auto) 2.7 L Bureau % (Auto) 4.7 Eos % (Auto) 0.5 L Baso % (Auto) 0.0 Neut # (Auto) 64898 H Lymph # (Auto) 600 L Bureau # (Auto) 1000 H Eos # (Auto) 100 Baso # (Auto) 0 ABG pH ABG pCO2 ABG pO2 ABG HCO3 ABG Total CO2 ABG O2 Saturation ABG Base Excess FiO2 Sodium 142 Potassium 4.1 Chloride 104 Carbon Dioxide 34 H BUN 51 H Creatinine 1.00 Estimated GFR 53.5 L BUN/Creatinine Ratio 51.0 H Glucose 121 H Uric Acid 11.1 H Calcium 10.3 H Magnesium 2.9 H Total Bilirubin 0.3 Conjugated Bilirubin 0.0 Unconjugated Bilirubin 0.1 AST 26 ALT 37 H Alkaline Phosphatase 171 H Total Protein 6.6 Albumin 3.1 L Globulin 3.5 Albumin/Globulin Ratio 0.9 L Procalcitonin 08/04/19 08/04/19 08/04/19 08:36 13:08 17:56 WBC RBC Hgb Hct MCV MCH MCHC RDW Plt Count Neut % (Auto) Lymph % (Auto) Bureau % (Auto) Eos % (Auto) Baso % (Auto) Neut # (Auto) Lymph # (Auto) Bureau # (Auto) Eos # (Auto) Baso # (Auto) ABG pH 7.32 L 7.38 ABG pCO2 69.1 H* 58.0 H ABG pO2 67 L 58 L ABG HCO3 36 H 35 H ABG Total CO2 38 H 36 H ABG O2 Saturation 90 L 89 L ABG Base Excess 10.0 H 10.0 H FiO2 32 44 Sodium Potassium Chloride Carbon Dioxide BUN Creatinine Estimated GFR BUN/Creatinine Ratio Glucose Uric Acid Calcium Magnesium Total Bilirubin Conjugated Bilirubin Unconjugated Bilirubin AST ALT Alkaline Phosphatase Total Protein Albumin Globulin Albumin/Globulin Ratio Procalcitonin 1.24 H Assessment & Plan Assessment & Plan narrative: Leyda Nielsen is a 79-year-old female with a past medical history significant for paroxysmal atrial fibrillation, diastolic CHF, chronic hypoxemic and hypercarbic 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 1. MSSA bacteremia and right foot cellulitis with multiple abscesses and possible septic joint, present on admission. Active. -Blood cultures preliminarily positive for staph in 4:4 bottles with sensitivities pending. Source felt to be her right lower extremity given the severity of her presentation. She has no evidence of pneumonia as chest x-ray unremarkable and no abdominal pain to suspect intra-abdominal source. -Echocardiogram did not demonstrate any hemodynamically significant valvular abnormalities or obvious vegetation. -Continue ceftriaxone 2 g IV daily. Discontinued vancomycin with dosing per pharmacist as blood cultures grew MSSA. -ESR is markedly elevated at > 140. -CT of the right lower extremity with contrast demonstrated subcutaneous edema of the right lower leg, small peripherally enhancing fluid collection within the medial aspect of the hindfoot probably at represents fluid within the tibialis posterior tendon sheath, suggestive of tenosynovitis. However, a small abscess cannot be completely excluded. No fractures. Moderate degenerative changes of the knee are not adequately characterized. -Initial WBC 32.4 and trending down now 13.8. Procalcitonin initially negative at 0.19 then peaked at 4.93 now 1.34. Continue to monitor WBC and procalcitonin daily. -Consulted orthopedic surgery, Dr. Rm, and we appreciate his time and recommendations. Plan to take patient to OR today for I&D of bilateral evolving abscesses on dorsum of foot. Patient is NPO. 2. Acute metabolic encephalopathy, present on admission. Improving. -Continue to treat infection as above. -CT brain without contrast did not demonstrate any acute intracranial abnormalities. -Continue to avoid COMPENSATION AND BENEFITS ADMINISTRATOR depressant medications and reorient and redirect frequently. -Continue Seroquel 25 mg daily at bedtime. Instructed nursing staff to try to keep patient awake and stimulated throughout day and allow uninterrupted sleep with minimal interruptions at night. 3. Acute sepsis, present on admission. Resolved. -Patient presented with leukocytosis and tachycardia with evidence of organ dysfunction including metabolic encephalopathy and DOM with staph bacteremia from sore right lower extremity cellulitis, probable abscesses and possible septic joint. -Early goal directed therapy met including: IV antibiotics and IV fluid resuscitation. 4. Possible gout exacerbation with hyperuricemia, present on admission. -Initial uric acid of 12.9. Repeat uric acid 11.1. Patient has history of gout but is not on uric acid lowering medication at home? -Unclear if this represents a gouty attack. Patient has had several courses of prednisone as an outpatient over last 2 weeks. Plan to avoid steroids at this time given staph bacteremia. -Will plan to start uric acid lowering medication prior to discharge. 5. Acute kidney injury on possible CKD stage 3, present on admission. Acute kidney injury resolved. -Secondary to sepsis, infection and hypermetabolic state. -Initial creatinine 1.39 and trended up to 1.82. Creatinine now down to 1.0 and likely falsely low due to IV fluid administration. Baseline creatinine unknown but appears to be 1.3. -Continued IV fluids until adequately hydrated then discontinued. -Avoid nephrotoxic agents. -Continue to monitor renal function daily. 6. Chronic hypoxemic and hypercarbic respiratory failure, secondary to oxygen dependent COPD, present on admission. Stable. -Does not represent COPD exacerbation. -Continue home Spiriva and Symbicort with hospital formulary medications. -Continue supplemental oxygen to maintain oxygen saturation 88-92% (do not over oxygen a as will Dr. carlisle). Patient currently at baseline oxygen requirement of 3-3.5 L. Continue trilogy at all times while sleeping or napping. 7. Paroxysmal atrial fibrillation on Eliquis, chronic, present on admission. Stable. -Continue home apixaban 5 mg twice daily. 8. Diastolic congestive heart failure, present on admission. Stable. -Does not represent CHF exacerbation. -Held metolazone and spironolactone. Previous diuresis have been ineffective at high doses and she he was to follow up with nephrology upon discharge in May which is unclear if pursued. -Continue 1.5 L fluid restriction, strict I&Os and daily weights. Net + 1.5 L. -Discontinued IV fluids to avoid volume overload. -Repeated echocardiogram as above to assess for valvular vegetations. 9. Morbid obesity, chronic, present on admission. Stable. -BMI 46.2. -Patient has increased risk of complications due to her morbid obesity. Plan to addictions counselor patient on lifestyle modification including diet and exercise when mentation improves. 10. Psoriasis on Humira, chronic, present on admission. Stable. -Patient receives Humira injections every 2 weeks, with last dose approximately week and half prior to admission. She reports good response of plaque psoriasis to Humira. -Discontinued Humira and will have patient follow-up with her restaurant maintenance technician. 11. Normocytic anemia, acute on chronic, present on admission. -Likely secondary to hemodilution from IV fluid resuscitation in the setting of sepsis. -Initial hemoglobin 8.8. Baseline hemoglobin 10-12. Hemoglobin stable but trended down now 7.2. No overt signs of bleeding. Transfusion goal hemoglobin < 7.0. -Continue to monitor CBC daily. Code status: Full Code DVT prophylaxis: Hold eliquis for surgical intervention. Disposition: Patient remains inpatient for severe right foot infection.
[2019-08-05] MEDS: CEFTRIAXONE 2 GM/50 ML FROZ.PIGGY IV (08:37)
[2019-08-05] MEDS: TIOTROPIUM BROMIDE 2 EACH INH (08:47)
[2019-08-05] MEDS: BUDESONIDE FORMOTEROL 1 EACH INH (08:48)
[2019-08-05 08:50] LABS: Add Manual Diff / Slide Review NO; Basophils Absolute Auto 0 /uL (0-100); Basophils Percent Auto 0.1 % (0-2); Eosinophils Absolute Auto 100 /uL (0-450); Eosinophils Percent Auto 0.5 % (2-4); Hematocrit 22.1 % (36-46); Hemoglobin 7.2 g/dL (12.0-16.0); Lymphocytes Absolute Auto 900 /uL (1100-4500); Lymphocytes Percent Auto 6.7 % (25-40); Mean Corpuscular HGB Conc 32.5 % (30-36); Mean Corpuscular Hemoglobin 31.9 PG (26-34); Mean Corpuscular Volume 98.3 fL (80-100); Monocytes Absolute Auto 1000 /uL (0-900); Monocytes Percent Auto 7.2 % (3-14); Neutrophils Absolute Auto 11800 /uL (1500-7000); Neutrophils Percent Auto 85.5 % (50-75); Platelet Count 320 X10^3/uL (150-400); Red Blood Cell Count 2.25 X10^6/uL (4.0-5.2); White Blood Cell Count 13.8 X10^3/uL (4.5-11.0)
--- NOTE | 2019-08-05 08:50 | PT-IP ANOTE ---
pt will be having surgery today and PT eval on hold. nurse confirmed that pt is going to have surgery today and is still not appropriate for PT.
[2019-08-05 08:57] LABS: Alanine Aminotransferase 38 IU/L (<35); Albumin 3.2 g/dL (3.5-5.0); Alkaline Phosphatase 170 U/L (38-126); Aspartate Aminotransferase 32 IU/L (14-36); BUN Creatinine Ratio 48.6 (6-22); Bilirubin Total 0.4 mg/dL (0.2-1.3); Bilirubin Unconjugated 0.2 mg/dL (0.0-1.1); Blood Urea Nitrogen 53 mg/dL (7-17); Calcium 10.3 mg/dL (8.4-10.2); Carbon Dioxide 36 mmol/L (22-32); Chloride 103 mmol/L (98-107); Estimated Glomerular Filt Rate 48.4 mL/min (>60); Globulin 3.3 g/dL (1.7-4.1); Glucose 113 mg/dL (80-110); HEMOLYSIS < 15 (0-50); Magnesium 2.7 mg/dL (1.6-2.3); Sodium 142 mmol/L (137-145); Total Protein 6.5 g/dL (6.3-8.2)
--- NOTE | 2019-08-05 09:00 | OT.IPNOTE ---
Hold OT lalo as pt having surgery today.
[2019-08-05 09:08] LABS: COVID19 -Nasal RAPID Negative (Negative)
[2019-08-05] MEDS: KETOROLAC 30 MG/ML VIAL IV (09:11)
[2019-08-05 09:25] LABS: Procalcitonin 1.34 ng/mL (<0.5)
--- NOTE | 2019-08-05 11:29 | PT-IP ANOTE ---
pt will be having surgery today. doctor consented to discharging PT eval order at this time and will put in new order if pt is appropriate for PT.
--- NOTE | 2019-08-05 13:10 | CM.DPNOTE ---
DCP Cont According to RN, patient more alert today, dtr at bedside. Surgery scheduled this afternoon for I+D. Met w/patient and dtr, explained DCP role. Patient had her home trilogy machine on but was able to nod yes and no; both patient and dtr agree patient will benefit from SNF upon DC this time, patient would like to remain in [place] at [facility]. Placed call to August at [facility] [place]; gave referral and awaiting CB to discuss. JACKELIN Cabello
--- NOTE | 2019-08-05 13:14 | PM.PREOP ---
Pre-operative Note COVID-19 COVID-19 status: Negative Result date/Date tested (Pos, Neg/Pending): 08/05/19 Interval Note History & Physical reviewed/Exam performed by Physician: Yes Changes to H&P: Yes H&P completed within 30 days and has changed as indicated here:: Evolving abscess from this am. Despite improving infectious markers as well as CT, which did not demonstrate significant fluid accumulation she has developed dorsal abscesses on the medial and lateral aspect of her foot. Plan is for I&D of the foot abscess and aspiration of the ankle joint. Possible arthrotomy and I&D of the ankle joint. Placement of wound vac. The risks and benefits of surgery were discussed including the risks of continued infection, need for future surgeries, damage to local structures such as vessels and nerves, DVT, PE, amputation, etc. Patient demonstrates understanding and wishes to proceed.
--- NOTE | 2019-08-05 13:21 | PC.NURSE ---
Pt to surgery via bed with OR RNs, chart, and consent form. Belongings moved to rm. 215. Daughter to 215 to wait for Pt.
--- NOTE | 2019-08-05 14:47 | PM.OP.1 ---
Operative Date/Time/Diagnoses Date of procedure: 08/05/19 Time of procedure: 14:47 Pre-op diagnosis: right foot abscess Post-op diagnosis: same Procedure & Clinicians Procedure: Irrigation and sharp debridement of right foot abscess, right ankle aspiration, application of wound vac 2x Same procedure as scheduled: Yes Indications: right foot abscess Surgeon: Anjel Rm Click Yes if Unassisted: Yes Anesthesia Type: General Operative Notes Findings: right foot abscess involving the dorsum of the foot and the posterior tibial tendon sheath Closure Type: non-primary Prosthetic devices, grafts, tissues, transplants, or devices: 2x wound vac machines 2x black sponges 1x white sponge tunneled over dorusm of foot Estimated Blood Loss (mL): 100 Procedure in detail: Patient was met in the preoperative holding area where the site and side of surgery were marked by . All last minute questions were answered. Patient was then brought back in the operating room where she was transferred onto the operating room table in induced under general anesthesia. A nonsterile tourniquet was placed on the right thigh and the right lower extremity then prepped and draped in normal sterile fashion. A surgical time-out was performed verifying the site and side of surgery as well as the name of the patient I started with a aspirate of the right ankle 2-3 cc of reddish yellow fluid was aspirated from the ankle joint. This was sent for cell count, Gram stain, crystals, and culture. The 2 abscesses were then marked out with a surgical pen. I started with the medial abscess approximately 5 cm long elliptical incision was made. I encountered immediate purulence this was sent for culture. Necrotic tissue was excised using sharp dissection. I then used a londono it D access to the posterior tibial tendon sheath and was able to express purulence from the sheath. I then thoroughly irrigated the medial side. I stable tunnel over the dorsum of the foot to the lateral abscess quite easily. I then turned my attention to the lateral side a ellipsed out the lateral abscess this was approximately 7 cm long incision. Sharp dissection was used to also debride necrotic tissue. I could not find abscess pocket that communicated with the ankle joint. At this point 4 L of normal saline were irrigated through the incisions using cysto tubing. Once this for later back was used we then turned our attention to repeat sharp debridement until we had healthy bleeding tissue. Four more L of normal saline was then irrigated through the wound. I did thorough exploration at this point I do not believe that communicates with the ankle joint however I can not rule out completely. Three more liters of normal saline were then irrigated through the wound. A white sponge was then tunneled under the dorsum of the foot connecting the medial lateral wounds. A black sponge was then placed in the medial and lateral wounds and wound VAC was placed on each wound. Wound VAC sealed without leak in the OR. This was then overwrapped with an Germán bandage. Complications: none Post-operative Condition: stable Disposition: Acute Care Plan for aftercare: Continue IV antibiotics. Nonweightbearing right lower extremity. Keep wound VAC in place. Plan will be for wound VAC change in the OR with repeat exploration and irrigation and debridement Friday morning. Follow-up right ankle aspirate results.
[2019-08-05 15:44] LABS: Body Fluid Red Blood Cells 67438 /uL; Body Fluid Tot Nucleated Cells 23482 /uL
--- NOTE | 2019-08-05 15:45 | SUR.PHASEI ---
Patient arrived in PACU and an oral airway and [id number] was placed on patient 2 to patient sats dropped to 66. Patient was given 2 mg metoprolol for HR > 115. Patient currently has pinpoint pupils. MEAGAN Luciano is doing a chin lift. RT was called to place patient on home CPAP.
--- NOTE | 2019-08-05 16:03 | SUR.PHASEI ---
RT here. Placed patient on CPAP.
[2019-08-05 16:04] LABS: Body Fluid Appearance CLOUDY; Body Fluid Clotted? NO CLOTS PRESENT; Body Fluid Color BLOODY; Mononuclear WBC Body Fluid 15 %; Polynuclear WBC Body Fluid 85 %
[2019-08-05 16:07] LABS: Crystals Body Fluid - IN-HOUSE NONE Present
--- NOTE | 2019-08-05 16:13 | SUR.PHASEI ---
Both RT's at bedside. Patient getting a nebulizer treatment.
[2019-08-05] MEDS: ALBUTEROL 2.5 MG/3 ML NEB (ADULT) INH ×3 (16:24→21:48)
[2019-08-05 16:34] LABS: Hemoglobin 7.5 g/dL (12.0-16.0)
[2019-08-05 16:35] LABS: Hematocrit 23.1 % (36-46)
--- NOTE | 2019-08-05 17:25 | SUR.PHASEI ---
Patient continues on BiPAP. Dr Rm is is at bedside regarding wound vac blockage.Crissy, clinical educator, is also at bedside also trouble shooting woundvac. Patient only arouses to sternal rub by opening her eyes.
--- NOTE | 2019-08-05 17:39 | SUR.PHASEI ---
Report given to Katty SALES DEMONSTRATOR, patient will be transferred as soon as relief nurse arrives in ICU. Hand-off given to Jd.
[2019-08-05 17:49] LABS: PCO2 ABG 94.5 mmHg (35-45); PO2 ABG 92 mmHg (80-100); pH ABG 7.18 (7.35-7.45)
[2019-08-05 17:50] LABS: HCO3 ABG 35 mmol/L (22-26); TCO2 ABG 38 mmol/L (21-31)
[2019-08-05 17:51] LABS: Fractionated Inspired Oxygen 50; Oxygen Saturation ABG 94 % (95-100)
--- NOTE | 2019-08-05 18:35 | SUR.PHASEI ---
Assumed care at 27
--- NOTE | 2019-08-05 18:36 | SUR.PHASEI ---
Addendum entered by Jd Gibson R.N. 08/05/19 19:10: Ptwas transferred to room 230 with the help of RT and MEAGAN Dolan. Monitoring resumed by MEAGAN Talley ICU. Original Note: Assumed care from MEAGAN Bangura at 1735. Pt was being placed on BIPAP when I entered recovery. BP had been stopped by prior RN as pt was being readied to be transported to ICU. Dr Rm was also in the process of changing pts wound vac to her bilateral ankles. He was assisted by Mau neurosurgical physician assistant. After this was completed pt was repostioned in her bed with the assistance of Dr Rm, Adina Valencia, and myself. After completing my respiratory assessement, I found there to be ronchi and expiratory wheeze and requested an albuteral tx which Dr Rm ordered. Pt was struggling to maintain her tital volume as well as her sats and her RR was elevated 40s-20s. Albuteral tx appears to have provided her with some relief and ronchi and wheeze are less pronounced. Update to Gerri auditor internal.
[2019-08-05 19:23] LABS: PCO2 ABG 79.3 mmHg (35-45); PO2 ABG 73 mmHg (80-100); pH ABG 7.25 (7.35-7.45)
[2019-08-05 19:24] LABS: Fractionated Inspired Oxygen 35; HCO3 ABG 35 mmol/L (22-26); Oxygen Saturation ABG 91 % (95-100); TCO2 ABG 37 mmol/L (21-31)
[2019-08-05] MEDS: SODIUM CHLORIDE 0.9% 500 ML 1000 ML IV (19:47)
[2019-08-05 20:24] LABS: Hematocrit 20.9 % (36-46); Hemoglobin 6.6 g/dL (12.0-16.0)
--- NOTE | 2019-08-05 20:30 | PC.NURSE ---
Addendum entered by Pam Davis R.N. 08/05/19 23:23: RT Adela and 2 [facility] shift nurses assisted with attempting to give pt ordered seroquil crushed in applesauce, it took sternal rub to wake pt and 2 nurses to prevent pt from pulling at lines while this nurse administered as much of the medication as the pt would swallow without spitting it out. I was not comfortable administering any other medications in this manner. Report given to [facility] shift nurse, no further patient contact at this time. Addendum entered by Pam Davis R.N. 08/05/19 22:15: 2130 Pt has began to pull at lines and BiPap, increasingly more awake, but still very confused. Has attempted to pull out IV with PRBC infusing and has pulled the BiPap tubing off a few times, she requires 2 nurses to assist by holding her hands during the PICC line placement. Provider notified, recommendation is to attempt crushing seroquil in a carrier and feeding pt med after PICC placement. New ABG shows PCO2 of 77.2 provider aware, will continue with current BiPap settings. RT to assist with removing BiPap to administer seroquil medication, in case of desaturation. Will continue to treat and monitor as ordered. Original Note: Report received from Sveta in PACU, pt having difficulty rousing post-op, only rouses with sternal rub. RT to stabilize on BiPap before bringing pt to ICU. Current PCO @ 94.5, will recheck when pt arrives in room. Pt arrived via bed from PACU, with RT and 2 PACU nurses, BiPap setting at 22/10 FiO2 35% saturation of 90%. Connected to monitor, vitals taken, current cardiac rhythm is AFib-CVR with BBB,which is baseline, vitals 65/41 MAP of 49. Provider notified, 500 mL bolus infused, vitals improved to 75/62 with MAP of 62. Pt continues not to rouse, but will move extremities at will. Call to PICC nurse to place PICC line (will arrive in approx. 2 hours). Critical H/H lab value of 6.6/20.9, provider update, new orders for 2 units PRBC with Lasix given in between. Vancomycin order to continue as soon as there is IV access. IV access being attempted as pt currently only has a 22g in the LAC that is struggling to infuse the NS Bolus. Will attempt to transfuse at least 1 unit of blood into the current 22g IV while waiting for the PICC nurse to arrive. Bed low and locked, will continue to monitor.
[2019-08-05 20:39] LABS: BUN Creatinine Ratio 38.6 (6-22); Blood Urea Nitrogen 59 mg/dL (7-17); Calcium 9.8 mg/dL (8.4-10.2); Carbon Dioxide 36 mmol/L (22-32); Chloride 102 mmol/L (98-107); Estimated Glomerular Filt Rate 32.7 mL/min (>60); Glucose 122 mg/dL (80-110); HEMOLYSIS < 15 (0-50); Potassium 4.4 mmol/L (3.4-5.1); Sodium 140 mmol/L (137-145)
--- NOTE | 2019-08-05 20:44 | PM.EVENT ---
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 The patient was taken to the operating room by Dr. Rm for incision and drainage of right foot abscess. She has returned from the operating room following a respiratory decompensation in recovery room with the patient was placed on BiPAP therapy for altered mental status secondary to hypercarbia. The patient has been doing well tolerating BiPAP without her previous level of agitation with improving ABG. I was called to the room to evaluate the patient when she is found to be hypotensive blood pressure 65/41 and heart rate was stable at 84 and continues to have ventilation supported by BiPAP with a saturation of 90%. The patient is given a 500 cc bolus of normal saline with improvement of blood pressure 95/51. Patient ventilation remains stable on BiPAP decrease in the concern for fluid bolus for pressure management. Ordered stat H&H and is found to have a hemoglobin of 6.6 and a BMP which shows stable electrolytes, elevated CO level commensurate with history of COPD and metabolic alkalosis, BUN of 59 and creatinine 1.53 that is elevated from this morning. Order placed for transfusion of 2 units of blood with 20 mg of Lasix in between units however the patient has only one 22 gauge IV and has failed attempts at insertion of a second-line.. Orders placed for PICC line insertion.
--- NOTE | 2019-08-05 22:31 | DI.RAD.S_ITS ---
PROCEDURE: XR CHEST 1V INDICATIONS: PICC placement TECHNIQUE: One view of the chest was acquired. COMPARISON: [facility], CR, XR CHEST 1V, 08/04/2019, 17:51. [facility], CR, XR CHEST 1V, 08/02/2019, 18:24. FINDINGS: Surgical changes and devices: From a left-sided approach extends into the area of the distal SVC. Lungs and pleura: Lungs are clear. No pleural effusions or pneumothorax. Mediastinum: Mediastinal contours appear normal considering patient's rotation rightward. Heart size is moderately enlarged, previously the case also. Bones and chest wall: No suspicious bony lesions. Overlying soft tissues appear unremarkable. IMPRESSION: Cardiomegaly, possible mild pulmonary edema superimposed. PICC line in normal position from left-sided approach. Dictated by: Louie Saavedra M.D. on 08/06/2019 at 8:51 Approved by: Louie Saavedra M.D. on 08/06/2019 at 8:52
[2019-08-05] MEDS: QUETIAPINE 25 MG TABLET PO (23:00)
[2019-08-05] MEDS: FUROSEMIDE 20 MG/2 ML VIAL IV (23:49)
[2019-08-05 23:50] LABS: pH ABG 7.25 (7.35-7.45)
[2019-08-05 23:52] LABS: HCO3 ABG 34 mmol/L (22-26); PCO2 ABG 77.2 mmHg (35-45); PO2 ABG 67 mmHg (80-100)
[2019-08-05 23:53] LABS: Fractionated Inspired Oxygen 30; Oxygen Saturation ABG 89 % (95-100); TCO2 ABG 36 mmol/L (21-31)
[2019-08-06] VITALS (21 sets, daily range): BP systolic 95–131; BP diastolic 50–72; PULSE 66–93; RESP 16–28; TEMP 30.1–36.8; O2SAT 90–97; BMI 46.2
[2019-08-06] MEDS: VANCOMYCIN 1,500 MG/300 ML FROZ.PIGGY 200 MG IV (00:16)
--- NOTE | 2019-08-06 00:22 | PC.NURSE ---
Patient's rings appeared tight on fingers. Removed 5 rings gently with lotion and gave all directly to patient's daughter.
[2019-08-06 04:47] LABS: Hemoglobin 7.9 g/dL (12.0-16.0); Mean Corpuscular Hemoglobin 31.8 PG (26-34); Mean Corpuscular Volume 96.4 fL (80-100); Platelet Count 307 X10^3/uL (150-400); Red Blood Cell Count 2.49 X10^6/uL (4.0-5.2); Red Cell Distribution Width 15.4 % (11.6-14.8); White Blood Cell Count 15.1 X10^3/uL (4.5-11.0)
[2019-08-06 04:49] LABS: Add Manual Diff / Slide Review YES; Alanine Aminotransferase 30 IU/L (<35); Albumin 2.8 g/dL (3.5-5.0); Albumin Globulin Ratio 0.9 (1.0-2.8); Alkaline Phosphatase 137 U/L (38-126); Aspartate Aminotransferase 25 IU/L (14-36); BUN Creatinine Ratio 39.1 (6-22); Bilirubin Total 0.4 mg/dL (0.2-1.3); Blood Urea Nitrogen 63 mg/dL (7-17); Calcium 9.5 mg/dL (8.4-10.2); Carbon Dioxide 33 mmol/L (22-32); Chloride 103 mmol/L (98-107); Estimated Glomerular Filt Rate 30.9 mL/min (>60); Globulin 3.2 g/dL (1.7-4.1); Glucose 105 mg/dL (80-110); HEMOLYSIS < 15 (0-50); Magnesium 2.6 mg/dL (1.6-2.3); Potassium 4.5 mmol/L (3.4-5.1); Sodium 144 mmol/L (137-145)
[2019-08-06 04:54] LABS: PCO2 ABG 70.1 mmHg (35-45); PO2 ABG 70 mmHg (80-100); pH ABG 7.28 (7.35-7.45)
[2019-08-06 04:55] LABS: Fractionated Inspired Oxygen 30; HCO3 ABG 33 mmol/L (22-26); Oxygen Saturation ABG 91 % (95-100); TCO2 ABG 35 mmol/L (21-31)
[2019-08-06 05:09] LABS: Neutrophils Absolute Manual 12533 /uL (3000-5900); RBC Morphology Normal Morphology; Total Cells Counted 100
[2019-08-06] MEDS: FUROSEMIDE 20 MG/2 ML VIAL IV (06:02)
[2019-08-06] MEDS: ACETAMINOPHEN 325 MG TABLET 975 MG PO ×3 (06:27→20:56)
[2019-08-06] MEDS: TIOTROPIUM BROMIDE 2 EACH INH (07:36)
[2019-08-06] MEDS: ALBUTEROL 2.5 MG/3 ML NEB (ADULT) INH ×2 (07:36→20:10)
[2019-08-06] MEDS: BUDESONIDE FORMOTEROL 1 EACH INH ×2 (07:37→19:59)
--- NOTE | 2019-08-06 07:57 | DI.MRI.S_ITS ---
PROCEDURE: MR LOWER LEG RT WO/W CON INDICATIONS: Right foot cellulitis and abscesses TECHNIQUE: Noncontrast coronal T1 spin echo and STIR, sagittal T1 spin echo with fat saturation and STIR, axial T1 spin echo and T2 fast spin echo with fat saturation. After the administration of contrast, axial/sagittal/coronal T1 spin echo with fat saturation through the right lower leg. COMPARISON: None. FINDINGS: Image quality: Degraded by motion artifact. Bones: The visualized bone marrow demonstrates normal signal on all sequences. The overlying cortex appears intact. No abnormal intraosseous enhancement. Soft tissues: There is bilateral upper to mid calf subcutaneous circumferential edema and cellulitis. No discrete rim-enhancing loculated abscess is seen. Diffuse muscle atrophy, without suspicious signal changes or enhancement. IMPRESSION: Bilateral, circumferential subcutaneous cellulitis, nonspecific etiology. This predominantly involves the upper to mid calf on both sides. No abscess seen. No evidence of osteomyelitis. Dictated by: Solo Cross M.D. on 08/06/2019 at 11:01 Approved by: Solo Cross M.D. on 08/06/2019 at 11:15
--- NOTE | 2019-08-06 08:03 | P.PN_ITS ---
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 The patient is lying in bed and appears comfortable. She is mentating clearly and we were able to have a discussion regarding her plan of care and code status. The patient understands that she has a severe foot infection and wants everything done to be treated. In regard to her code status, the patient reiterates that she wishes to be full code despite having significant lung disease and the on likelihood of resuscitation. The patient reportedly complains of right lower extremity pain but is able to sleep. The patient has no other complaints and denies headache, chest pain, shortness of breath, abdominal pain, nausea, vomiting, fever, chills, dysuria, diarrhea or c onstipation. She is voiding and eliminating without difficulty. Exam Vital Signs (past 8 hours): - 08/06/19 00:08 08/06/19 00:23 08/06/19 01:26 Temperature 98.0 F 97 F L Pulse Rate 66 84 Respiratory Rate 26 H 20 Blood Pressure 95/53 L 96/54 L 102/50 L Pulse Oximetry 08/06/19 02:18 08/06/19 04:00 08/06/19 04:26 Temperature 98.3 F 97.7 F Pulse Rate 73 84 Respiratory Rate 20 22 Blood Pressure 124/59 L 131/72 131/72 Pulse Oximetry 93 08/06/19 06:21 Temperature Pulse Rate Respiratory Rate Blood Pressure 131/72 Pulse Oximetry Fraction of Inspired Oxygen 30 Oxygen Delivery Method BiPAP Oxygen Flow Rate 10 Narrative Exam Narrative: General: Elderly female lying in bed sleeping and in no acute distress, well- developed, well-nourished, alert and oriented, appropriately interactive. HEENT: Normocephalic, atraumatic. External ears without defect. Pupils equal, round, and reactive to light. Anicteric sclerae, moist conjunctivae, and no lid lag. Oropharynx free of erythema and cobble stoning with moist mucosa. Neck: Supple with full range of motion. No jugular venous distension. No lymphadenopathy or thyromegaly. Cardiovascular: Irregularly irregular without murmurs, rubs, or gallops appreciated Pulmonary: Clear to auscultation bilaterally in anterior lung simons without crackles, wheezes, or rhonchi. Normal respiratory effort with no use of accesso ry muscles. Abdomen: Soft, obese, bowel sounds present, nontender, nondistended. No hepatosplenomegaly or masses appreciated. Extremities: No clubbing, cyanosis, or edema of other extremities. Scattered ecchymosis throughout upper extremities. Right foot with mild erythema and edema consistent with cellulitis to pretibial area. Wound VAC in place over dorsum of food. Neurological: Cranial nerves grossly intact. Psychiatric: Patient is oriented to person, place, and time. Intermittent con fusion and delirium resolved. Objective Labs Result Diagrams: 08/07/19 06:00 08/07/19 06:00 Labs: Laboratory Results - last 24 hr 08/05/19 08/05/19 08/05/19 07:56 08:00 08:00 WBC 13.8 H RBC 2.25 L Hgb 7.2 L Hct 22.1 L MCV 98.3 MCH 31.9 MCHC 32.5 RDW 15.0 H Plt Count 320 Neut % (Auto) 85.5 H Lymph % (Auto) 6.7 L [place] % (Auto) 7.2 Eos % (Auto) 0.5 L Baso % (Auto) 0.1 Neut # (Auto) 39291 H Lymph # (Auto) 900 L [place] # (Auto) 1000 H Eos # (Auto) 100 Baso # (Auto) 0 Total Counted Seg Neutrophils % Band Neutrophils % Lymphocytes % (Manual) Monocytes % (Manual) Eosinophils % (Manual) Neutrophils # (Manual) RBC Morphology ABG pH ABG pCO2 ABG pO2 ABG HCO3 ABG Total CO2 ABG O2 Saturation ABG Base Excess FiO2 Sodium 142 Potassium 4.0 Chloride 103 Carbon Dioxide 36 H BUN 53 H Creatinine 1.09 H Estimated GFR 48.4 L BUN/Creatinine Ratio 48.6 H Glucose 113 H Calcium 10.3 H Magnesium 2.7 H Total Bilirubin 0.4 Conjugated Bilirubin 0.0 Unconjugated Bilirubin 0.2 AST 32 ALT 38 H Alkaline Phosphatase 170 H Total Protein 6.5 Albumin 3.2 L Globulin 3.3 Albumin/Globulin Ratio 1.0 Procalcitonin Fluid Color Fluid Appearance Fluid RBC Fld Tot Nucleated Cell Fluid Polynuclear WBCs Fluid Mononuclear WBCs Fluid Eosinophils Fluid Other Cells Fluid Crystals Body Fluid Clot COVID-19 PCR Negative Blood Type Antibody Screen Crossmatch 08/05/19 08/05/19 08/05/19 08:00 15:04 15:04 WBC RBC Hgb Hct MCV MCH MCHC RDW Plt Count Neut % (Auto) Lymph % (Auto) [place]oul[place] % (Auto) Eos % (Auto) Baso % (Auto) Neut # (Auto) Lymph # (Auto) [place]oul[place] # (Auto) Eos # (Auto) Baso # (Auto) Total Counted Seg Neutrophils % Band Neutrophils % Lymphocytes % (Manual) Monocytes % (Manual) Eosinophils % (Manual) Neutrophils # (Manual) RBC Morphology ABG pH ABG pCO2 ABG pO2 ABG HCO3 ABG Total CO2 ABG O2 Saturation ABG Base Excess FiO2 Sodium Potassium Chloride Carbon Dioxide BUN Creatinine Estimated GFR BUN/Creatinine Ratio Glucose Calcium Magnesium Total Bilirubin Conjugated Bilirubin Unconjugated Bilirubin AST ALT Alkaline Phosphatase Total Protein Albumin Globulin Albumin/Globulin Ratio Procalcitonin 1.34 H Fluid Color Bloody Fluid Appearance [place] [address] Fld Tot Nucleated Cell 49883 Fluid Polynuclear WBCs 85 Fluid Mononuclear WBCs 15 Fluid Eosinophils Not Reportable Fluid Other Cells Not Reportable Fluid Crystals None present Body Fluid Clot No clots present COVID-19 PCR Blood Type Antibody Screen Crossmatch 08/05/19 08/05/19 08/05/19 15:48 15:48 16:52 WBC RBC Hgb 7.5 L Hct 23.1 L MCV MCH MCHC RDW Plt Count Neut % (Auto) Lymph % (Auto) [place] % (Auto) Eos % (Auto) Baso % (Auto) Neut # (Auto) Lymph # (Auto) [place]oul[place] # (Auto) Eos # (Auto) Baso # (Auto) Total Counted Seg Neutrophils % Band Neutrophils % Lymphocytes % (Manual) Monocytes % (Manual) Eosinophils % (Manual) Neutrophils # (Manual) RBC Morphology ABG pH 7.18 L* ABG pCO2 94.5 H* ABG pO2 92 ABG HCO3 35 H ABG Total CO2 38 H ABG O2 Saturation 94 L ABG Base Excess 7.0 H FiO2 50 Sodium Potassium Chloride Carbon Dioxide BUN Creatinine Estimated GFR BUN/Creatinine Ratio Glucose Calcium Magnesium Total Bilirubin Conjugated Bilirubin Unconjugated Bilirubin AST ALT Alkaline Phosphatase Total Protein Albumin Globulin Albumin/Globulin Ratio Procalcitonin Fluid Color Fluid Appearance Fluid RBC Fld Tot Nucleated Cell Fluid Polynuclear WBCs Fluid Mononuclear WBCs Fluid Eosinophils Fluid Other Cells Fluid Crystals Body Fluid Clot COVID-19 PCR Blood Type A Positive Antibody Screen Negative Crossmatch See Detail 08/05/19 08/05/19 08/05/19 19:14 20:12 20:23 WBC RBC Hgb 6.6 L* Hct 20.9 L* MCV MCH MCHC RDW Plt Count Neut % (Auto) Lymph % (Auto) [place]oul[place] % (Auto) Eos % (Auto) Baso % (Auto) Neut # (Auto) Lymph # (Auto) [place]oul[place] # (Auto) Eos # (Auto) Baso # (Auto) Total Counted Seg Neutrophils % Band Neutrophils % Lymphocytes % (Manual) Monocytes % (Manual) Eosinophils % (Manual) Neutrophils # (Manual) RBC Morphology ABG pH 7.25 L* ABG pCO2 79.3 H* ABG pO2 73 L ABG HCO3 35 H ABG Total CO2 37 H ABG O2 Saturation 91 L ABG Base Excess 8.0 H FiO2 35 Sodium 140 Potassium 4.4 Chloride 102 Carbon Dioxide 36 H BUN 59 H Creatinine 1.53 H Estimated GFR 32.7 L BUN/Creatinine Ratio 38.6 H Glucose 122 H Calcium 9.8 Magnesium Total Bilirubin Conjugated Bilirubin Unconjugated Bilirubin AST ALT Alkaline Phosphatase Total Protein Albumin Globulin Albumin/Globulin Ratio Procalcitonin Fluid Color Fluid Appearance Fluid RBC Fld Tot Nucleated Cell Fluid Polynuclear WBCs Fluid Mononuclear WBCs Fluid Eosinophils Fluid Other Cells Fluid Crystals Body Fluid Clot COVID-19 PCR Blood Type Antibody Screen Crossmatch 08/05/19 08/06/19 08/06/19 22:10 04:30 04:30 WBC 15.1 H RBC 2.49 L Hgb 7.9 L Hct 24.0 L MCV 96.4 MCH 31.8 MCHC 33.0 RDW 15.4 H Plt Count 307 Neut % (Auto) Not Reportable Lymph % (Auto) Not Reportable [place]oul[place] % (Auto) Not Reportable Eos % (Auto) Not Reportable Baso % (Auto) Not Reportable Neut # (Auto) Lymph # (Auto) Not Reportable [place]oula # (Auto) Not Reportable Eos # (Auto) Baso # (Auto) Not Reportable Total Counted 100 Seg Neutrophils % 77.0 H Band Neutrophils % 6.0 Lymphocytes % (Manual) 5.0 L Monocytes % (Manual) 10.0 Eosinophils % (Manual) 2.0 Neutrophils # (Manual) 14018 H RBC Morphology Normal morphology ABG pH 7.25 L* ABG pCO2 77.2 H* ABG pO2 67 L ABG HCO3 34 H ABG Total CO2 36 H ABG O2 Saturation 89 L ABG Base Excess 7.0 H FiO2 30 Sodium Potassium Chloride Carbon Dioxide BUN Creatinine Estimated GFR BUN/Creatinine Ratio Glucose Calcium Magnesium Total Bilirubin Conjugated Bilirubin Unconjugated Bilirubin AST ALT Alkaline Phosphatase Total Protein Albumin Globulin Albumin/Globulin Ratio Procalcitonin 1.60 H Fluid Color Fluid Appearance Fluid RBC Fld Tot Nucleated Cell Fluid Polynuclear WBCs Fluid Mononuclear WBCs Fluid Eosinophils Fluid Other Cells Fluid Crystals Body Fluid Clot COVID-19 PCR Blood Type Antibody Screen Crossmatch 08/06/19 08/06/19 04:30 04:40 WBC RBC Hgb Hct MCV MCH MCHC RDW Plt Count Neut % (Auto) Lymph % (Auto) [place]oul[place] % (Auto) Eos % (Auto) Baso % (Auto) Neut # (Auto) Lymph # (Auto) [place]oul[place] # (Auto) Eos # (Auto) Baso # (Auto) Total Counted Seg Neutrophils % Band Neutrophils % Lymphocytes % (Manual) Monocytes % (Manual) Eosinophils % (Manual) Neutrophils # (Manual) RBC Morphology ABG pH 7.28 L* ABG pCO2 70.1 H* ABG pO2 70 L ABG HCO3 33 H ABG Total CO2 35 H ABG O2 Saturation 91 L ABG Base Excess 7.0 H FiO2 30 Sodium 144 Potassium 4.5 Chloride 103 Carbon Dioxide 33 H BUN 63 H Creatinine 1.61 H Estimated GFR 30.9 L BUN/Creatinine Ratio 39.1 H Glucose 105 Calcium 9.5 Magnesium 2.6 H Total Bilirubin 0.4 Conjugated Bilirubin Unconjugated Bilirubin AST 25 ALT 30 Alkaline Phosphatase 137 H Total Protein 6.0 L Albumin 2.8 L Globulin 3.2 Albumin/Globulin Ratio 0.9 L Procalcitonin Fluid Color Fluid Appearance Fluid RBC Fld Tot Nucleated Cell Fluid Polynuclear WBCs Fluid Mononuclear WBCs Fluid Eosinophils Fluid Other Cells Fluid Crystals Body Fluid Clot COVID-19 PCR Blood Type Antibody Screen Crossmatch Assessment & Plan Assessment & Plan narrative: Leyda Nielsen is a 79-year-old female with a past medical history significant for paroxysmal atrial fibrillation, diastolic CHF, chronic hypoxemic and hypercarbic 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 1. MSSA bacteremia and right foot cellulitis with multiple abscesses and possible septic joint, status post I&D, present on admission. Active. -Blood cultures preliminarily positive for staph in 4:4 bottles with sensitivities pending. Source felt to be her right lower extremity given the severity of her presentation. She has no evidence of pneumonia as chest x-ray unremarkable and no abdominal pain to suspect intra-abdominal source. -Echocardiogram did not demonstrate any hemodynamically significant valvular abnormalities or obvious vegetation. -ESR is markedly elevated at > 140. -CT of the right lower extremity with contrast demonstrated subcutaneous edema of the right lower leg, small peripherally enhancing fluid collection within the medial aspect of the hindfoot probably at represents fluid within the tibialis posterior tendon sheath, suggestive of tenosynovitis. However, a small abscess cannot be completely excluded. No fractures. Moderate degenerative changes of the knee are not adequately characterized. -Initial WBC 32.4 and trending down now 15.1. Procalcitonin initially negative at 0.19 then peaked at 4.93 now 1.60. Continue to monitor WBC and procalcitonin daily. -Continue vancomycin with dosing per pharmacist and due to severity of infection broadened ceftriaxone to meropenem 1 g every 12 hours for coverage of Gram- positive, Gram-negative, Pseudomonas, and MRSA. -Consulted orthopedic surgery, Dr. Rm, who performed I&D of bilateral abscesses on dorsum of foot. 2. Acute on chronic normocytic anemia, present on admission. Active. -Likely secondary to hemodilution from IV fluid resuscitation in the setting of sepsis. -Initial hemoglobin 8.8. Baseline hemoglobin 10-12. Hemoglobin stable but trended down to 6.6 and received 2 units PRBC and hemoglobin improved to 7.9. Patient has sanguinous drainage of right foot in wound VAC. Compensation. No overt signs of bleeding. Transfusion goal hemoglobin < 7.0. -Continue to monitor CBC daily. 3. Acute on chronic hypoxemic and hypercarbic respiratory failure, present on admission. Stable. -Chronic respiratory failure multifactorial secondary to obesity hypoventilation syndrome, JEANIE, and COPD. -Patient was severely hypercarbic after initial I&D likely due to hypoventilation versus over oxygenation and then has had hypoxemia due to reported issues with trilogy. Continue BiPAP per RT and will discuss with [facility] outside industrial sales representative to evaluate Trilogy. -Does not represent COPD exacerbation. -Continue home Spiriva and Symbicort with hospital formulary medications. -Continue supplemental oxygen to maintain oxygen saturation 88-92% (do not over oxygenate as will drive hypercarbia). Patient currently at baseline oxygen requirement of 3-3.5 L. Continue trilogy or BiPAP at all times while sleeping or napping. 4. Acute kidney injury on possible CKD stage 3, present on admission. Active. -Initially secondary to sepsis, infection and hypermetabolic state and now due to hypotension intra and postoperatively and NSAIDs. -Initial creatinine 1.39 and trended up to 1.82. Creatinine now 1.61. Baseline creatinine unknown but appears to be 1.3. -Continued IV fluids until adequately hydrated then discontinued. -Avoid nephrotoxic agents. -Continue to monitor renal function daily. 5. Acute metabolic encephalopathy, present on admission. Resolved. -Continue to treat infection as above. -CT brain without contrast did not demonstrate any acute intracranial abnormalities. -Continue to avoid MODEL [employer] depressant medications and reorient and redirect frequently. -Continue Seroquel 25 mg daily at bedtime. Instructed nursing staff to try to keep patient awake and stimulated throughout day and allow uninterrupted sleep with minimal interruptions at night. 6. Acute sepsis, present on admission. Resolved. -Patient presented with leukocytosis and tachycardia with evidence of organ dysfunction including metabolic encephalopathy and DOM with staph bacteremia from sore right lower extremity cellulitis, probable abscesses and possible septic joint. -Early goal directed therapy met including: IV antibiotics and IV fluid resuscitation. 7. Possible gout exacerbation with hyperuricemia, present on admission. Active. -Initial uric acid of 12.9. Repeat uric acid 11.1. Patient has history of gout but is not on uric acid lowering medication at home? -Unclear if this represents a gouty attack. Patient has had several courses of prednisone as an outpatient over last 2 weeks. Plan to avoid steroids at this time given staph bacteremia. -Will plan to start uric acid lowering medication prior to discharge. 8. Paroxysmal atrial fibrillation on Eliquis, chronic, present on admission. Stable. -Held home apixaban 5 mg twice daily for operation and will restart at ortho discretion. 9. Diastolic congestive heart failure, present on admission. Stable. -Does not represent CHF exacerbation. -Held metolazone and spironolactone. Previous diuresis have been ineffective at high doses and she he was to follow up with nephrology upon discharge in May which is unclear if pursued. -Continue 1.5 L fluid restriction, strict I&Os and daily weights. Net + 1.5 L. -Discontinued IV fluids to avoid volume overload. -Repeated echocardiogram as above to assess for valvular vegetations. 10. Morbid obesity, chronic, present on admission. Stable. -BMI 46.2. -Patient has increased risk of complications due to her morbid obesity. Plan to grief counselor patient on lifestyle modification including diet and exercise when mentation improves. 10. Psoriasis on Humira, chronic, present on admission. Stable. -Patient receives Humira injections every 2 weeks, with last dose approximately week and half prior to admission. She reports good response of plaque psoriasis to Humira. -Discontinued Humira and will have patient follow-up with her repulping supervisor. Code status: Full Code DVT prophylaxis: Hold eliquis for surgical intervention. Disposition: Patient remains inpatient for severe right foot infection.
--- NOTE | 2019-08-06 08:08 | RT ---
Bipap was removed by Nurse Peña for break/resp assessment. Bipap was off X 30 mins. Neb and inhalers given. Pt seems lethargic and very obtunded and groggy @ 30 min jennifer. Bipap replaced.
--- NOTE | 2019-08-06 08:40 | PC.NURSE ---
Addendum entered by Tiffany Stokes R.N. 08/06/19 14:55: Pt switched over to trilogy with 5L bleed in. plan to recheck ABG @ 1700, per dr corbett. Addendum entered by Tiffany Stokes R.N. 08/06/19 14:28: Plan to switch Pt over to Trilogy machine, and recheck blood gas after 3 hours. RT updated. Addendum entered by Tiffany Stokes R.N. 08/06/19 14:03: One family member remains at bedside, Pt has been off and on bipap as needed today, fatigues easily. Addendum entered by Tiffany Stokes R.N. 08/06/19 12:27: Pt tolerated being off bipap for 20 min to work on some lunch, replaced bipap and repositioned for comfort. Mechanical Engineering Technologist into make recomendation for in creased protein BID shakes with low fat/carb. Addendum entered by Tiffany Stokes R.N. 08/06/19 10:38: Pt tolerating bipap well this AM, restless but improved significantly after bedpan use. 14/03 28% Fi02, Mentation improved and able to have full conversation with Dr Corbett, verifying code status. Pt accompanied to MRI by this RN on 3L NC. Tolerating well. Tramadol givenprior to transport to . Original Note: Am shift Assumed care of patient, alarming noted to medial wound vac. Obtained supplies to reinforce dressing, but noted large blood clot to foam/tubing. Contacted Dr Rm, who would like to have tubing clamped and wound vac turned off, as this is likely a very involved dressing change.
[2019-08-06] MEDS: MEROPENEM 1 GM/50 ML PIGGYBACK IV ×2 (09:21→20:14)
[2019-08-06] MEDS: TRAMADOL 50 MG TABLET 100 MG PO ×2 (10:05→21:59)
--- NOTE | 2019-08-06 11:11 | RT ---
At 1020, pt went down to MRI; nasal cannula given to pt at 3 lpm during the 45 min procedure. I accompanied patient and brought Bipap machine too. Pt did not need the Bipap machine, and I returned the machine to pt's room. Pt placed back to Bipap at prev settings. Pt is awake and responds better than this morning during weaning trial. Pt no c/o pain to R ankle (12/31), Nurse Tiffany at bedside.
--- NOTE | 2019-08-06 12:05 | DIET.PN ---
Dietary Progress Note Assessment: 79y F admitted for GLF found to have large abscess in R foot requiring I&D, placement of 2 wound vacs c second procedure planned for this weekend. Pt referred to nutrition for dietary management of high PRO diet to support healing in this morbidly obese pt (BMI 46.2). 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 Pts morbid obesity (225% ideal body weight) complicates hospital course r/t increased weight: reducing lung expansion c COPD, reduced baseline mobility c further reduction r/t extensive R foot wound, and PRO needs calculated based on body weight making PRO goal difficult to attain without RD management and good pt compliance. Pt willing to follow meal plan recc by RD while in hospital, stating I want to heal. Pt willing to drink ONS Joaquin to support wound healing and Ensure Max to support high PRO needs in bariatric pts. Meals to contain soft pro, soft vegetables and few other meal fillers to promote reduced inflammation, avoid weight gain as pt now c further reduced mobility. Pts renal labs are of concern for high PRO feeding, will start @ 70% of goal and increase once labs show improvement. HT: 162.5cm WT: 122kg BMI:46.2 Labs: renal labs BUN 63 H, Cr 1.61 H, eGFR 30.9 L MNA: 14 Brandon: 18 Nutrition Diagnosis: increased PRO needs r/t wound healing (right foot abscess involving the dorsum of the foot and the posterior tibial tendon sheath x2 wound vacs) aeb morbidly obese pt (BMI 46.2) c high baseline protein needs (100g/d), pt tires easily c chewing r/t o2 dependent COPD, pt immune compromised c Humira tx for plaque psoriasis. Interventions: 1. To support wound healing, PRO goal of 140g/d starting at 100g today and will increase to goal as renal fxn regulates. 2. To support CHF, sodium restricted diet (2g max/d). 3. To support weight maintenance/healthy weight loss and inflammatory state, meals to contain soft PRO and soft cooked vegetables, minimizing filler foods c goal of no more than 1600kcal per day. 4. Recc ONS Joaquin bid and Ensure Max bid providing 63% PRO needs in addition to meals. Diet Order: Low Na EER: 1600kcal (promote healthy wt/reduced mobility), 140g PRO (1.2g/kg wound healing) Monitoring/Evaluations:f/u Mon for meal compliance, ONS tolerance, renal labs, consider ONS Ensure Max tid if pt not reaching PRO goal
--- NOTE | 2019-08-06 14:38 | PM.PN.1 ---
Subjective Subjective Date Patient Seen: 08/06/19 Time Patient Seen: 14:38 Interval history: Pain in the ankle is slowly improving s/p I&D and placement of wound vac. The lateral wound vac clotted off. Plan to retrun to OR tomorrow at 9:30 am for repeat washout and placement of wound vac. MRI from today does not demonstrate proximal infection. Exam Vital Signs (past 8 hours): - 08/06/19 08:00 08/06/19 08:09 08/06/19 12:00 Temperature 96.9 F L 96.3 F L Pulse Rate 88 83 Respiratory Rate 26 H 18 Blood Pressure 101/57 L 101/57 L 105/57 L Pulse Oximetry 93 92 08/06/19 13:21 08/06/19 13:56 Temperature Pulse Rate Respiratory Rate Blood Pressure 105/57 L Pulse Oximetry 96 Fraction of Inspired Oxygen 28 Oxygen Delivery Method Nasal Cannula Oxygen Flow Rate 3 Narrative Exam Narrative: Wound vac to lateral wound holding suction, medial is clotted off. No saturation around dressings. Minimal TTP to proximal calf. Continues to have pain in the foot. Able to wiggle toes. Sensation intact to toes. Objective Labs Result Diagrams: 08/06/19 04:30 08/06/19 04:30 Labs: Laboratory Results - last 24 hr 08/05/19 08/05/19 08/05/19 15:04 15:04 15:48 WBC RBC Hgb 7.5 L Hct 23.1 L MCV MCH MCHC RDW Plt Count Neut % (Auto) Lymph % (Auto) [place] % (Auto) Eos % (Auto) Baso % (Auto) Lymph # (Auto) [place] # (Auto) Baso # (Auto) Total Counted Seg Neutrophils % Band Neutrophils % Lymphocytes % (Manual) Monocytes % (Manual) Eosinophils % (Manual) Neutrophils # (Manual) RBC Morphology ABG pH ABG pCO2 ABG pO2 ABG HCO3 ABG Total CO2 ABG O2 Saturation ABG Base Excess FiO2 Sodium Potassium Chloride Carbon Dioxide BUN Creatinine Estimated GFR BUN/Creatinine Ratio Glucose Calcium Magnesium Total Bilirubin AST ALT Alkaline Phosphatase Total Protein Albumin Globulin Albumin/Globulin Ratio Procalcitonin Fluid Color Bloody Fluid Appearance Cloudy Fluid RBC 44701 Fld Tot Nucleated Cell 71447 Fluid Polynuclear WBCs 85 Fluid Mononuclear WBCs 15 Fluid Eosinophils Not Reportable Fluid Other Cells Not Reportable Fluid Crystals None present Body Fluid Clot No clots present Blood Type Antibody Screen Crossmatch 08/05/19 08/05/19 08/05/19 15:48 16:52 19:14 WBC RBC Hgb Hct MCV MCH MCHC RDW Plt Count Neut % (Auto) Lymph % (Auto) [place] % (Auto) Eos % (Auto) Baso % (Auto) Lymph # (Auto) [place] # (Auto) Baso # (Auto) Total Counted Seg Neutrophils % Band Neutrophils % Lymphocytes % (Manual) Monocytes % (Manual) Eosinophils % (Manual) Neutrophils # (Manual) RBC Morphology ABG pH 7.18 L* 7.25 L* ABG pCO2 94.5 H* 79.3 H* ABG pO2 92 73 L ABG HCO3 35 H 35 H ABG Total CO2 38 H 37 H ABG O2 Saturation 94 L 91 L ABG Base Excess 7.0 H 8.0 H FiO2 50 35 Sodium Potassium Chloride Carbon Dioxide BUN Creatinine Estimated GFR BUN/Creatinine Ratio Glucose Calcium Magnesium Total Bilirubin AST ALT Alkaline Phosphatase Total Protein Albumin Globulin Albumin/Globulin Ratio Procalcitonin Fluid Color Fluid Appearance Fluid RBC Fld Tot Nucleated Cell Fluid Polynuclear WBCs Fluid Mononuclear WBCs Fluid Eosinophils Fluid Other Cells Fluid Crystals Body Fluid Clot Blood Type A Positive Antibody Screen Negative Crossmatch See Detail 08/05/19 08/05/19 08/05/19 20:12 20:23 22:10 WBC RBC Hgb 6.6 L* Hct 20.9 L* MCV MCH MCHC RDW Plt Count Neut % (Auto) Lymph % (Auto) [place] % (Auto) Eos % (Auto) Baso % (Auto) Lymph # (Auto) [place] # (Auto) Baso # (Auto) Total Counted Seg Neutrophils % Band Neutrophils % Lymphocytes % (Manual) Monocytes % (Manual) Eosinophils % (Manual) Neutrophils # (Manual) RBC Morphology ABG pH 7.25 L* ABG pCO2 77.2 H* ABG pO2 67 L ABG HCO3 34 H ABG Total CO2 36 H ABG O2 Saturation 89 L ABG Base Excess 7.0 H FiO2 30 Sodium 140 Potassium 4.4 Chloride 102 Carbon Dioxide 36 H BUN 59 H Creatinine 1.53 H Estimated GFR 32.7 L BUN/Creatinine Ratio 38.6 H Glucose 122 H Calcium 9.8 Magnesium Total Bilirubin AST ALT Alkaline Phosphatase Total Protein Albumin Globulin Albumin/Globulin Ratio Procalcitonin Fluid Color Fluid Appearance Fluid RBC Fld Tot Nucleated Cell Fluid Polynuclear WBCs Fluid Mononuclear WBCs Fluid Eosinophils Fluid Other Cells Fluid Crystals Body Fluid Clot Blood Type Antibody Screen Crossmatch 08/06/19 08/06/19 08/06/19 04:30 04:30 04:30 WBC 15.1 H RBC 2.49 L Hgb 7.9 L Hct 24.0 L MCV 96.4 MCH 31.8 MCHC 33.0 RDW 15.4 H Plt Count 307 Neut % (Auto) Not Reportable Lymph % (Auto) Not Reportable [place] % (Auto) Not Reportable Eos % (Auto) Not Reportable Baso % (Auto) Not Reportable Lymph # (Auto) Not Reportable [place] # (Auto) Not Reportable Baso # (Auto) Not Reportable Total Counted 100 Seg Neutrophils % 77.0 H Band Neutrophils % 6.0 Lymphocytes % (Manual) 5.0 L Monocytes % (Manual) 10.0 Eosinophils % (Manual) 2.0 Neutrophils # (Manual) 43651 H RBC Morphology Normal morphology ABG pH ABG pCO2 ABG pO2 ABG HCO3 ABG Total CO2 ABG O2 Saturation ABG Base Excess FiO2 Sodium 144 Potassium 4.5 Chloride 103 Carbon Dioxide 33 H BUN 63 H Creatinine 1.61 H Estimated GFR 30.9 L BUN/Creatinine Ratio 39.1 H Glucose 105 Calcium 9.5 Magnesium 2.6 H Total Bilirubin 0.4 AST 25 ALT 30 Alkaline Phosphatase 137 H Total Protein 6.0 L Albumin 2.8 L Globulin 3.2 Albumin/Globulin Ratio 0.9 L Procalcitonin 1.60 H Fluid Color Fluid Appearance Fluid RBC Fld Tot Nucleated Cell Fluid Polynuclear WBCs Fluid Mononuclear WBCs Fluid Eosinophils Fluid Other Cells Fluid Crystals Body Fluid Clot Blood Type Antibody Screen Crossmatch 08/06/19 04:40 WBC RBC Hgb Hct MCV MCH MCHC RDW Plt Count Neut % (Auto) Lymph % (Auto) [place] % (Auto) Eos % (Auto) Baso % (Auto) Lymph # (Auto) [place] # (Auto) Baso # (Auto) Total Counted Seg Neutrophils % Band Neutrophils % Lymphocytes % (Manual) Monocytes % (Manual) Eosinophils % (Manual) Neutrophils # (Manual) RBC Morphology ABG pH 7.28 L* ABG pCO2 70.1 H* ABG pO2 70 L ABG HCO3 33 H ABG Total CO2 35 H ABG O2 Saturation 91 L ABG Base Excess 7.0 H FiO2 30 Sodium Potassium Chloride Carbon Dioxide BUN Creatinine Estimated GFR BUN/Creatinine Ratio Glucose Calcium Magnesium Total Bilirubin AST ALT Alkaline Phosphatase Total Protein Albumin Globulin Albumin/Globulin Ratio Procalcitonin Fluid Color Fluid Appearance Fluid RBC Fld Tot Nucleated Cell Fluid Polynuclear WBCs Fluid Mononuclear WBCs Fluid Eosinophils Fluid Other Cells Fluid Crystals Body Fluid Clot Blood Type Antibody Screen Crossmatch Assessment & Plan Assessment & Plan narrative: Leyda Nielsen is a 79 yo female with multiple medical comorbidities who I was consulted for suspicion of a septic joint and or gout attack. Patient is now POD #1 from I&D of right foot abscess as well as right ankle arthrocentesis. Right ankle arthrocentesis was negative for crystals, WBC 23K, gram stain negative, cultures pending. Although the elevated WBC is concerning it is not conclusive as patient has a known history of gout. MRI from today does not demonstrate any proximal abscess. Plan is for repeat I&D of the foot with replacement of the wound vac; possible right ankle arthrotomy pending arthrocentesis results. I do not want to perform arthroomty without postive growth due to concern of seeding the joint with the infection from the foot. Abscess vs. septic ankle - OCTOR tomorrow for repeat I&D; placement of wound vac; possible arthrotomy - NPO after midnight Time Spent With Patient Time with patient: 15-24 minutes
[2019-08-06] MEDS: buPROPion XL 150 MG TAB PO (14:49)
[2019-08-06] MEDS: DOCUSATE 100 MG CAPSULE PO ×2 (14:50→20:57)
[2019-08-06] MEDS: FLUoxetine 20 MG CAPSULE PO (14:50)
--- NOTE | 2019-08-06 17:00 | PC.NURSE ---
1700- Patient unable to keep her saturations at 88%. Patient on her home trilogy and saturations ranging from 80-84%. Respiratory called for ABG and Patient placed back on Bi-pap. Patient verbalizes she is feeling tired. Will monitor.
--- NOTE | 2019-08-06 17:19 | RT ---
With Dr. Corbett's consent, we placed patient on her home Trilogy at 1500, pt required 5 lpm O2 bleed in to keep sats 90% ABG was drawn just after Trilogy removal, results hand delivered to Dr Corbett. Plan, per Dr. Corbett: Trilogy for sleep tonight.
[2019-08-06 17:30] LABS: pH ABG 7.31 (7.35-7.45)
[2019-08-06 17:31] LABS: HCO3 ABG 31 mmol/L (22-26); PCO2 ABG 61.5 mmHg (35-45); PO2 ABG 68 mmHg (80-100); TCO2 ABG 33 mmol/L (21-31)
[2019-08-06 17:32] LABS: Fractionated Inspired Oxygen 5; Oxygen Saturation ABG 91 % (95-100)
[2019-08-06] MEDS: MONTELUKAST 10 MG TABLET PO (18:22)
[2019-08-06] MEDS: VANCOMYCIN 1,000 MG/200 ML PIGGYBACK 200 MG IV (20:54)
[2019-08-06] MEDS: QUETIAPINE 25 MG TABLET PO ×2 (20:56→21:11)
--- NOTE | 2019-08-06 22:15 | PC.NURSE ---
Addendum entered by Leyda Gil R.N. 08/06/19 22:41: 2230- Discussed pain management with RETORT KILN BURNER Louie, patient does not do well with narcotics. Plan to try ice and elevate extremity. Will monitor Original Note: 2199- Patient calling out moaning. Patient states she is having severe pain to her right foot ankle. Patient medicated per order. Will monitor and discuss with .
[2019-08-07] VITALS (32 sets, daily range): BP systolic 100–135; BP diastolic 51–74; PULSE 70–126; RESP 8–31; TEMP 28.3–36.9; O2SAT 85–99
[2019-08-07] MEDS: TRAMADOL 50 MG TABLET 100 MG PO ×3 (02:39→19:12)
[2019-08-07] MEDS: KETOROLAC 15 MG/ML VIAL IV (04:30)
[2019-08-07 06:29] LABS: Add Manual Diff / Slide Review NO; Basophils Absolute Auto 0 /uL (0-100); Basophils Percent Auto 0.3 % (0-2); Eosinophils Absolute Auto 300 /uL (0-450); Eosinophils Percent Auto 2.3 % (2-4); Hemoglobin 7.4 g/dL (12.0-16.0); Lymphocytes Absolute Auto 1100 /uL (1100-4500); Lymphocytes Percent Auto 7.9 % (25-40); Mean Corpuscular HGB Conc 32.8 % (30-36); Mean Corpuscular Hemoglobin 31.5 PG (26-34); Mean Corpuscular Volume 96.2 fL (80-100); Monocytes Absolute Auto 600 /uL (0-900); Monocytes Percent Auto 4.7 % (3-14); Neutrophils Absolute Auto 11500 /uL (1500-7000); Neutrophils Percent Auto 84.8 % (50-75); Platelet Count 296 X10^3/uL (150-400); Red Blood Cell Count 2.35 X10^6/uL (4.0-5.2); Red Cell Distribution Width 15.4 % (11.6-14.8); White Blood Cell Count 13.5 X10^3/uL (4.5-11.0)
[2019-08-07 06:35] LABS: Hematocrit 22.6 % (36-46)
[2019-08-07 06:36] LABS: Alanine Aminotransferase 23 IU/L (<35); Albumin 2.5 g/dL (3.5-5.0); Albumin Globulin Ratio 0.9 (1.0-2.8); Alkaline Phosphatase 120 U/L (38-126); Aspartate Aminotransferase 19 IU/L (14-36); BUN Creatinine Ratio 45.1 (6-22); Bilirubin Total 0.3 mg/dL (0.2-1.3); Blood Urea Nitrogen 64 mg/dL (7-17); Calcium 9.2 mg/dL (8.4-10.2); Carbon Dioxide 31 mmol/L (22-32); Chloride 101 mmol/L (98-107); Estimated Glomerular Filt Rate 35.7 mL/min (>60); Globulin 2.9 g/dL (1.7-4.1); Glucose 90 mg/dL (80-110); HEMOLYSIS < 15 (0-50); Magnesium 2.6 mg/dL (1.6-2.3); Sodium 142 mmol/L (137-145); Total Protein 5.4 g/dL (6.3-8.2)
[2019-08-07 06:47] LABS: Procalcitonin 1.12 ng/mL (<0.5)
[2019-08-07] MEDS: BUDESONIDE FORMOTEROL 1 EACH INH ×2 (07:38→20:43)
[2019-08-07] MEDS: TIOTROPIUM BROMIDE 2 EACH INH (07:39)
--- NOTE | 2019-08-07 08:44 | PM.PREOP ---
Pre-operative Note COVID-19 COVID-19 status: Negative Result date/Date tested (Pos, Neg/Pending): 08/05/19 Interval Note History & Physical reviewed/Exam performed by Physician: Yes Changes to H&P: Yes H&P completed within 30 days and has changed as indicated here:: Aspiration results from the right ankle now show Staph Aureus growth. Plan for repeat I&D of the right foot abscesses, right ankle arthrotomy and irrigation and debridement, application of wound vac
[2019-08-07] MEDS: LACTATED RINGERS 1,000 ML 42 ML IV (09:28)
[2019-08-07] MEDS: MEROPENEM 1 GM/50 ML PIGGYBACK IV ×2 (09:44→20:30)
--- NOTE | 2019-08-07 10:03 | SUR.OPER ---
Supine on padded OR bed, head on pillow, arms secured on padded arm boards at <90 degrees abduction, legs uncrossed, safety belt at thigh, tape over blanket over lower legs.
--- NOTE | 2019-08-07 11:06 | PM.OP.1 ---
Operative Date/Time/Diagnoses Date of procedure: 08/07/19 Time of procedure: 11:06 Pre-op diagnosis: right foot abscess (repeat I&D), right ankle septic arthritis Post-op diagnosis: same Procedure & Clinicians Procedure: right foot repeat irrigation and debridement, right ankle arthrotomy and irrigation and debridement Same procedure as scheduled: Yes Indications: Repeat I&D of right foot abscess (second look) and right ankle septic arthritis Surgeon: Anjel Rm Click Yes if Unassisted: Yes Anesthesia Type: General Operative Notes Findings: necrotic tissue in wound bed, some purulence, septic right ankle Closure Type: non-primary Specimen(s): none sent Estimated Blood Loss (mL): 200 Blood products transfused: none Procedure in detail: Patient was seen on the floor this morning. Lab results were reviewed which indicated that the right ankle arthrocentesis from the initial washout head resulted in scanned Staph aureus growth. She is also due for wound vac removal and 2nd look of her foot abscesses and because of the arthrocentesis results we would also plan on a right ankle arthrotomy and irrigation debridement. I reviewed the risks and benefits of surgery with the patient including the risks of continued infection, damage to local structures such as vessels and nerves, continued pain, need for future surgeries, need for amputation, etc. Patient demonstrates understanding and wishes to proceed with right foot repeat irrigation debridement and right ankle arthrotomy and irrigation debridement. Site and side of surgery were marked by . Patient was brought back into the operating room she is transferred on the operating room table. She was then induced under general anesthesia. The right lower extremity wound vacs were then removed as well as the deep white sponge. The right lower extremity was then prepped and draped with iodine. A surgical time-out was performed verifying the site and side of surgery as well as the name of the patient. A 2 cm longitudinal incision over the medial aspect of the tibialis anterior at the level the ankle joint was made through the skin using 15. Blade followed by blunt dissection down to the joint capsule. Upon entering the joint capsule a scant amount of cloudy reddish fluid was encountered. We then ran 8 L of normal saline through the ankle joint. Then turned our attention to the repeat I and D of the foot. There was some purulence in both wound beds able to be expression the edges of the wound skin edges were trimmed back to what appears to be a viable poor at this time. Repeat sharp and blunt dissection of the wound beds was performed. Care was taken to explore all pockets a irrigation debridement continued until no further purulence was encountered. For more L of normal saline were used to irrigate the foot wound bed. At the lateral wound bed exposed tendon without peitenon was seen in the wound bed these were removed as they were nonviable. The ankle arthrotomy had a Hemovac drain placed inside the ankle joint and the drain was tunneled to the skin. The arthrotomy incision site was loosely reapproximated with 2 interrupted nylons. The hemovac drain was then sutured in place. Two 4 x 4 sponges were placed into the medial wound bed. And 4 sponges were placed into the lateral wound bed. These were then over wrapped with Kerlix and ABD dressings followed by an Germán wrap. Plan will be for wet-to-dry dressing changes on the floors. Complications: none Post-operative Condition: stable Disposition: PACU Plan for aftercare: Patient has continued infection in the foot as well as lab results indicating right ankle septic arthritis. She is now status post repeat I&D of the foot as well as arthrotomy irrigation debridement and placement of a drain in the ankle joint. Plan will be for removal of the drain from the ankle and 48 hours. Continue IV antibiotics per Medicine and pharmacy recommendations. She is nonweightbearing on right lower extremity. Plan will be for daily wet-to-dry dressing changes.
--- NOTE | 2019-08-07 11:49 | SUR.PHASEI ---
Dr Lloyd notified patient c/o pain and hr 121, bp 125/69. Order for Esmolol given 1ml. 1ml given per MD. HR decreased to 80s. BP 118/64.
[2019-08-07] MEDS: fentaNYL 100 MCG/2 ML INJ 50 MCG IV (11:53)
--- NOTE | 2019-08-07 12:15 | SUR.PHASEI ---
Report called to Tiffany
--- NOTE | 2019-08-07 12:38 | SUR.PHASEI ---
patient transferred back to ICU with VS monitor and O2. Report given to Tiffany. Rt foot/ankle dressing clean, dry, intact. HV draining scant amount of sero-sang fluid. Hr up to 123. VS otherwise stable. Patient placed on BIPAP while resting.
[2019-08-07] MEDS: SODIUM CHLORIDE 0.9% 100 ML 500 ML IV (13:00)
--- NOTE | 2019-08-07 13:09 | P.PN_ITS ---
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 The patient is lying in bed and appears slightly uncomfortable. She reports significant right foot pain. She continues to be more awake and alert and is mentating clearly. Ortho plans to take the patient back to the OR for washout of previous areas of foot infection/abscess and now joint as she has grown MSSA in joint aspirate. The patient has no other complaints and denies headache, chest pain, shortness of breath, abdominal pain, nausea, vomiting, fever, chills, dysuria, diarrhea or constipation. She is voiding and eliminating without difficulty. Exam Vital Signs (past 8 hours): - 08/07/19 07:42 08/07/19 08:15 08/07/19 09:27 Temperature 98.3 F 98.4 F Pulse Rate 72 70 Respiratory Rate 18 Blood Pressure 122/58 L 122/51 L 102/59 L Pulse Oximetry 98 99 89 L 08/07/19 11:19 08/07/19 11:24 08/07/19 11:29 Temperature 98.1 F Pulse Rate 117 H 117 H 118 H Respiratory Rate 16 17 25 H Blood Pressure 125/71 135/73 131/74 Pulse Oximetry 93 92 93 08/07/19 11:33 08/07/19 11:39 08/07/19 11:49 Temperature Pulse Rate 118 H 119 H 79 Respiratory Rate 19 22 13 Blood Pressure 130/68 126/70 118/64 Pulse Oximetry 92 93 93 08/07/19 11:54 08/07/19 12:04 08/07/19 12:09 Temperature 98.4 F Pulse Rate 92 H 113 H 98 H Respiratory Rate 8 L 19 17 Blood Pressure 109/62 116/68 120/62 Pulse Oximetry 89 L 87 L 94 08/07/19 12:18 Temperature Pulse Rate 116 H Respiratory Rate 18 Blood Pressure 114/68 Pulse Oximetry 94 Fraction of Inspired Oxygen 28 Oxygen Delivery Method Nasal Cannula Oxygen Flow Rate 3 Narrative Exam Narrative: General: Elderly female lying in bed sleeping and in no acute distress, well- developed, well-nourished, alert and oriented, appropriately interactive. HEENT: Normocephalic, atraumatic. External ears without defect. Pupils equal, round, and reactive to light. Anicteric sclerae, moist conjunctivae, and no lid lag. Oropharynx free of erythema and cobble stoning with moist mucosa. Neck: Supple with full range of motion. No jugular venous distension. No lymphadenopathy or thyromegaly. Cardiovascular: Irregularly irregular without murmurs, rubs, or gallops appreciated Pulmonary: Clear to auscultation bilaterally in anterior lung simons without crackles, wheezes, or rhonchi. Normal respiratory effort with no use of accessory muscles. Abdomen: Soft, obese, bowel sounds present, nontender, nondistended. No hepatosplenomegaly or masses appreciated. Extremities: No clubbing, cyanosis, or edema of other extremities. Scattered ecchymosis throughout upper extremities. Right foot with mild erythema and edema consistent with cellulitis to pretibial area. Wound VAC in place over dorsum of food. Neurological: Cranial nerves grossly intact. Psychiatric: Patient is oriented to person, place, and time. Intermittent confusion and delirium resolved. Objective Labs Result Diagrams: 08/07/19 06:00 08/07/19 06:00 Labs: Laboratory Results - last 24 hr 08/06/19 08/07/19 08/07/19 17:02 06:00 06:00 WBC 13.5 H RBC 2.35 L Hgb 7.4 L Hct 22.6 L MCV 96.2 MCH 31.5 MCHC 32.8 RDW 15.4 H Plt Count 296 Neut % (Auto) 84.8 H Lymph % (Auto) 7.9 L [place] % (Auto) 4.7 Eos % (Auto) 2.3 Baso % (Auto) 0.3 Neut # (Auto) 73235 H Lymph # (Auto) 1100 [place] # (Auto) 600 Eos # (Auto) 300 Baso # (Auto) 0 ABG pH 7.31 L ABG pCO2 61.5 H* ABG pO2 68 L ABG HCO3 31 H ABG Total CO2 33 H ABG O2 Saturation 91 L ABG Base Excess 4.0 H FiO2 5 Sodium Potassium Chloride Carbon Dioxide BUN Creatinine Estimated GFR BUN/Creatinine Ratio Glucose Calcium Magnesium Total Bilirubin AST ALT Alkaline Phosphatase Total Protein Albumin Globulin Albumin/Globulin Ratio Procalcitonin 1.12 H 08/07/19 06:00 WBC RBC Hgb Hct MCV MCH MCHC RDW Plt Count Neut % (Auto) Lymph % (Auto) [place] % (Auto) Eos % (Auto) Baso % (Auto) Neut # (Auto) Lymph # (Auto) [place] # (Auto) Eos # (Auto) Baso # (Auto) ABG pH ABG pCO2 ABG pO2 ABG HCO3 ABG Total CO2 ABG O2 Saturation ABG Base Excess FiO2 Sodium 142 Potassium 4.0 Chloride 101 Carbon Dioxide 31 BUN 64 H Creatinine 1.42 H Estimated GFR 35.7 L BUN/Creatinine Ratio 45.1 H Glucose 90 Calcium 9.2 Magnesium 2.6 H Total Bilirubin 0.3 AST 19 ALT 23 Alkaline Phosphatase 120 Total Protein 5.4 L Albumin 2.5 L Globulin 2.9 Albumin/Globulin Ratio 0.9 L Procalcitonin Assessment & Plan Assessment & Plan narrative: Leyda Nielsen is a 79-year-old female with a past medical history significant for paroxysmal atrial fibrillation, diastolic CHF, chronic hypoxemic and hypercarbic 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 1. Acute MSSA bacteremia, right foot cellulitis, multiple right foot abscesses and possible right ankle septic joint, status post I&D, present on admission. Active. -Blood cultures preliminarily positive for staph in 4:4 bottles with sensitivities pending. Source felt to be her right lower extremity given the severity of her presentation. She has no evidence of pneumonia as chest x-ray unremarkable and no abdominal pain to suspect intra-abdominal source. -Echocardiogram did not demonstrate any hemodynamically significant valvular abnormalities or obvious vegetation. -ESR is markedly elevated at > 140. -CT of the right lower extremity with contrast demonstrated subcutaneous edema of the right lower leg, small peripherally enhancing fluid collection within the medial aspect of the hindfoot probably at represents fluid within the tibialis posterior tendon sheath, suggestive of tenosynovitis. However, a small abscess cannot be completely excluded. No fractures. Moderate degenerative changes of the knee are not adequately characterized. -Blood cultures, wound culture and joint aspirate positive for MSSA on 08/01 and 08/02. Blood cultures have no growth to date on 08/04 and 08/05. -Initial WBC 32.4 and trending down now 15.1. Procalcitonin initially negative at 0.19 then peaked at 4.93 now 1.60. Continue to monitor WBC and procalcitonin daily. -Continue vancomycin with dosing per pharmacist and due to severity of infection broadened ceftriaxone to meropenem 1 g every 12 hours for coverage of Gram- positive, Gram-negative, Pseudomonas, and MRSA. -continue pain control with tramadol 100 mg 4 times daily as needed for athg-jz-[id number] pain, oxycodone 2.5-5 mg every 4 hours as needed for moderate pain and morphine 1-2 mg IV every 6 hours only as needed for severe breakthrough pain. -Consulted orthopedic surgery, Dr. Rm, who performed I&D of bilateral abscesses on dorsum of foot and plans for repeat surgical washout today of previous foot infection and joint. Orthopedic surgery is very concern for that the patient will require a [id number]-exno amputation as her likelihood of healing is very low due to immunosuppression and severity of infection. 2. Acute on chronic normocytic anemia, present on admission. Active. -Secondary to sepsis and infection, hemodilution from IV fluid resuscitation and now I&D and acute blood loss. -Initial hemoglobin 8.8. Baseline hemoglobin 10-12. Hemoglobin stable but trended down to 6.6 and received 2 units PRBC with hemoglobin improved to 7.9. Patient has sanguinous drainage of right foot in wound VAC and hemoglobin now down to 7.4. Transfusion goal hemoglobin < 7.0. -Continue to monitor H&H daily. 3. Acute on chronic hypoxemic and hypercarbic respiratory failure, present on admission. Stable. -Chronic respiratory failure multifactorial secondary to obesity hypoventilation syndrome, JEANIE, and COPD. -Patient was severely hypercarbic after initial I&D likely due to hy poventilation versus over oxygenation and then has had hypoxemia due to reported issues with trilogy. Continue BiPAP per RT and will discuss with [facility] help desk representative to evaluate Trilogy. -Does not represent COPD exacerbation. -Continue home Spiriva and Symbicort with hospital formulary medications. -Continue supplemental oxygen to maintain oxygen saturation 88-92% (do not over oxygenate as will drive hypercarbia). Patient currently at baseline oxygen requirement of 3-3.5 L. Continue trilogy or BiPAP at all times while sleeping or napping. 4. Acute kidney injury on CKD stage 3, present on admission. Resolved -Initially secondary to sepsis, infection and hypermetabolic state and now due to hypotension intra and postoperatively and NSAIDs. -Initial creatinine 1.39 and trended up to 1.82. Creatinine now 1.42. Baseline creatinine unknown but appears to be 1.3. -Continued IV fluids until adequately hydrated then discontinued. -Avoid nephrotoxic agents. -Continue to monitor renal function daily. 5. Acute metabolic encephalopathy, present on admission. Resolved. -Continue to treat infection as above. -CT brain without contrast did not demonstrate any acute intracranial abnormali ties. -Continue to avoid CLEANING MATRON depressant medications and reorient and redirect frequently. -Continue Seroquel 25 mg daily at bedtime. Instructed nursing staff to try to keep patient awake and stimulated throughout day and allow uninterrupted sleep with minimal interruptions at night. 6. Acute sepsis, present on admission. Resolved. -Patient presented with leukocytosis and tachycardia with evidence of organ dysfunction including metabolic encephalopathy and DOM with staph bacteremia from sore right lower extremity cellulitis, probable abscesses and possible septic joint. -Early goal directed therapy met including: IV antibiotics and IV fluid resuscitation. 7. Possible gout exacerbation with hyperuricemia, present on admission. Active. -Initial uric acid of 12.9. Repeat uric acid 11.1. Patient has history of gout but is not on uric acid lowering medication at home? -Unclear if this represents a gouty attack. Patient has had several courses of prednisone as an outpatient over last 2 weeks. Plan to avoid steroids at this time given staph bacteremia. -Will plan to start uric acid lowering medication prior to discharge. 8. Paroxysmal atrial fibrillation on Eliquis, chronic, present on admission. Stable. -Held home apixaban 5 mg twice daily for surgical intervention and will restart tonight at orthopedic surgery discretion. 9. Diastolic congestive heart failure, present on admission. Stable. -Does not represent CHF exacerbation. -Held metolazone and spironolactone. Previous diuresis have been ineffective at high doses and she he was to follow up with nephrology upon discharge in May which is unclear if pursued. -Continue 1.5 L fluid restriction, strict I&Os and daily weights. Net + 1.5 L. -Discontinued IV fluids to avoid volume overload. -Repeated echocardiogram as above to assess for valvular vegetations. 10. Morbid obesity, chronic, present on admission. Stable. -BMI 46.2. -Patient has increased risk of complications due to her morbid obesity. Plan to psychotherapist counselor patient on lifestyle modification including diet and exercise when mentation improves. 11. Psoriasis on Humira, chronic, present on admission. Stable. -Patient receives Humira injections every 2 weeks, with last dose approximately week and half prior to admission. She reports good response of plaque psoriasis to Humira. -Discontinued Humira and will have patient follow-up with her social security benefits interviewer. Code status: Full Code DVT prophylaxis: Restart Eliquis Disposition: Patient remains inpatient for severe right foot infection.
[2019-08-07] MEDS: ACETAMINOPHEN 325 MG TABLET 975 MG PO ×2 (13:20→20:30)
--- NOTE | 2019-08-07 13:42 | PC.NURSE ---
Addendum entered by Tiffany Stokes R.N. 08/07/19 15:06: Blood gas being obtained by RT. Addendum entered by Tiffany Stokes R.N. 08/07/19 14:58: HR improved 90's afib, no Metoprolol given. Pain control remains an issue after tramadol and APAP. Dr Corbett into reevaluate Pt, Pt moaning and reporting 10/10 pain, though drowsy. IV Morphine ordered and given. Pt remains forgetful and calling out, not recalling taking previous pain medication, and rates pain 10/10. Asleep at recheck of effectiveness of morphine. Bipap remains in place. Original Note: AM shift Pt A/o x3, more alert this AM, reports pain has been manageable. Frustrated with NPO status. [facility] Returned to floor @ 1235. Pt afrib rvr, moaning in pain. GLOBAL ACCOUNT EXECUTIVE had given Fentanyl, seemed to oversly sedate, but Pt is now drowsy and moaning. Discussed with Dr Corbett. Will try fluid bolus prior to Metoprolol for HR. 118 at present.
[2019-08-07] MEDS: MORPHINE 2 MG/ML INJ IV (14:57)
[2019-08-07] MEDS: OXYCODONE IR 5 MG TABLET PO (16:05)
[2019-08-07] MEDS: MONTELUKAST 10 MG TABLET PO (16:06)
[2019-08-07 16:09] LABS: HCO3 ABG 30 mmol/L (22-26); PCO2 ABG 62.4 mmHg (35-45); PO2 ABG 71 mmHg (80-100)
[2019-08-07 16:10] LABS: Fractionated Inspired Oxygen 28; Oxygen Saturation ABG 91 % (95-100); TCO2 ABG 32 mmol/L (21-31); pH ABG 7.29 (7.35-7.45)
[2019-08-07] MEDS: polyethylene glycoL 3350 17 GM POWD.PACK PO (16:57)
--- NOTE | 2019-08-07 19:02 | PC.NURSE ---
Addendum entered by Regina Logan R.N. 08/07/19 20:52: 2030 - Repositioned for care. Declines to remain side lying. HOB elevated to ease work of breathing. NC on 3L for HS meds, pt drowsy, however answers questions appropriately. Encouraged deep breath. Replaced bi-pap following care. Call light in reach. Bed alarm on. Original Note: 1600 - Pt c/o pain 12/31. Alert, oriented and answering appropriately. I would rather than go on like this. Discussed pain control with MD and pt, discussed hx of delirium. Percolone given. Monitor. 1730 - Pt set up for meal. Reports pain significantly improved to 05/03. 1815 - Per pt request, and after consulting MD, attempt to use pt home trilogy r/t comfort. Bleed in of 3L, Pt sats decreased to 85%. On home trilogy. Mask removed. Placed back on hospital bi-pap. Fio2 28%, 14/03. Sats increased to 90's. MD leon. [employer] sales representative to come and check home trilogy unit on Friday.
[2019-08-07] MEDS: APIXABAN 5 MG TABLET PO (20:31)
[2019-08-07] MEDS: QUETIAPINE 25 MG TABLET PO (20:31)
[2019-08-07] MEDS: MELATONIN 3 MG TABLET 6 MG PO (20:31)
[2019-08-07] MEDS: DOCUSATE 100 MG CAPSULE PO (20:31)
[2019-08-07] MEDS: VANCOMYCIN 1,000 MG/200 ML PIGGYBACK 200 MG IV (21:34)
[2019-08-08] VITALS (13 sets, daily range): BP systolic 106–120; BP diastolic 52–58; PULSE 78–101; RESP 12–27; TEMP 29.2–36.8; O2SAT 91–98
[2019-08-08] MEDS: OXYCODONE IR 5 MG TABLET PO ×2 (00:08→06:34)
--- NOTE | 2019-08-08 01:07 | PC.NURSE ---
Addendum entered by Ruthie Yu R.N. 08/08/19 06:40: Pt c/o RLE pain 10/10. Medicated per EMAR with Oxycodone. RLE hemovac in place and compressed. No output this 8 hours. Addendum entered by Ruthie Yu R.N. 08/08/19 05:32: Jac CARSON notified of intermitent Afib,CVR. Discussed patients continued desats with BiPap off for short period of time to drink water. Pt desats to 78%. Pt does recover after of replacement of BiPap within several minutes to 92-94%. Pt continues with some incontinence and requests us of bed andrew, as well. Pt able to turn from side to side, but declines repositioning to sides. Bed used to reposition patient from side to side. Addendum entered by Ruthie Yu R.N. 08/08/19 02:39: Pt using call light to request bed andrew. Voided 75 cc. Bipap mask off briefly to drink water. O2 sats down to 83%. Sats returning to 93% quickly once Bipap replaced. Pt states pain down to 5/10 now after analgesia. Original Note: 0030 Pt awake and requesting bedpan. Assisted pt with use of bedpan and noble carel. Some incontinence noted prior to bed andrew use. Hemovac compressed and intact to L ankle and wrapped in lillie wrap. Pt c/o pain 10/10. Qxydodone 5 mg given. Pt alert and oriented x3 Pt desats quicklly with BiPap mask off with O2 sats down to 80%. Mask replaced and sats returning to 93%. Pt declined to be repositioned to side.
[2019-08-08] MEDS: SODIUM CHLORIDE 0.9% FLUSH 10 ML IV (02:37)
[2019-08-08 05:18] LABS: Blood Urea Nitrogen 58 mg/dL (7-17); Calcium 9.3 mg/dL (8.4-10.2); Carbon Dioxide 30 mmol/L (22-32); Chloride 101 mmol/L (98-107); Estimated Glomerular Filt Rate 37.8 mL/min (>60); Glucose 90 mg/dL (80-110); HEMOLYSIS < 15 (0-50); Potassium 4.3 mmol/L (3.4-5.1); Sodium 138 mmol/L (137-145)
[2019-08-08 05:32] LABS: Hemoglobin 7.2 g/dL (12.0-16.0); Mean Corpuscular HGB Conc 33.6 % (30-36); Mean Corpuscular Hemoglobin 32.8 PG (26-34); Mean Corpuscular Volume 97.8 fL (80-100); Platelet Count 316 X10^3/uL (150-400); Red Blood Cell Count 2.19 X10^6/uL (4.0-5.2); Red Cell Distribution Width 14.9 % (11.6-14.8)
[2019-08-08 06:13] LABS: Add Manual Diff / Slide Review YES; Hematocrit 21.4 % (36-46)
[2019-08-08 06:17] LABS: Neutrophils Absolute Manual 12460 /uL (3000-5900); Nucleated Red Blood Cells 2 #/Diff; Total Cells Counted 100
[2019-08-08 06:29] LABS: Anisocytosis 1+; Basophilic Stippling 1+
[2019-08-08] MEDS: TIOTROPIUM BROMIDE 2 EACH INH (07:56)
[2019-08-08] MEDS: BUDESONIDE FORMOTEROL 1 EACH INH ×2 (07:57→18:26)
[2019-08-08] MEDS: ALBUTEROL 2.5 MG/3 ML NEB (ADULT) INH (08:00)
[2019-08-08] MEDS: MEROPENEM 1 GM/50 ML PIGGYBACK IV ×2 (08:26→19:42)
[2019-08-08] MEDS: polyethylene glycoL 3350 17 GM POWD.PACK PO (08:27)
[2019-08-08] MEDS: ACETAMINOPHEN 325 MG TABLET 975 MG PO ×3 (08:27→21:15)
[2019-08-08] MEDS: APIXABAN 5 MG TABLET PO ×2 (08:27→21:15)
[2019-08-08] MEDS: FLUoxetine 20 MG CAPSULE PO (08:27)
[2019-08-08] MEDS: DOCUSATE 100 MG CAPSULE PO ×2 (08:27→21:15)
[2019-08-08] MEDS: buPROPion XL 150 MG TAB PO (08:27)
--- NOTE | 2019-08-08 09:18 | RT ---
Dr Corbett contacted Shin at [facility] yesterday to discuss if pt's home Trilogy can be adjusted; ABG drawn on Fri showed sig hypercarbia.
--- NOTE | 2019-08-08 09:55 | P.PN_ITS ---
Subjective Subjective Date Patient Seen: 08/08/19 Time Patient Seen: 09:25 Interval history: The patient indicates she is currently comfortable. Exam Vital Signs (past 8 hours): - 08/08/19 04:00 08/08/19 08:00 08/08/19 08:24 Temperature 98.0 F 98.2 F Pulse Rate 79 81 99 H Respiratory Rate 12 24 18 Blood Pressure 108/52 L 113/56 L Pulse Oximetry 94 95 97 08/08/19 09:21 Temperature Pulse Rate Respiratory Rate Blood Pressure 113/56 L Pulse Oximetry Fraction of Inspired Oxygen 30 Oxygen Delivery Method Nasal Cannula Oxygen Flow Rate 3 Narrative Exam Narrative: Right ankle and foot are dressed with an Germán wrap. A drain is in place in the ankle joint. Light touch is intact distal to the dressing. She can dorsiflex and plantar flex her toes on command. Objective Labs Result Diagrams: 08/08/19 04:50 08/08/19 04:50 Labs: Laboratory Results - last 24 hr 08/07/19 08/07/19 08/08/19 15:16 16:10 04:50 WBC 14.0 H RBC 2.19 L Hgb 7.2 L Hct 21.4 L MCV 97.8 MCH 32.8 MCHC 33.6 RDW 14.9 H Plt Count 316 Neut % (Auto) Not Reportable Lymph % (Auto) Not Reportable [place] % (Auto) Not Reportable Eos % (Auto) Not Reportable Baso % (Auto) Not Reportable Lymph # (Auto) Not Reportable [place] # (Auto) Not Reportable Baso # (Auto) Not Reportable Total Counted 100 Seg Neutrophils % 81.0 H Band Neutrophils % 8.0 H Lymphocytes % (Manual) 4.0 L Eosinophils % (Manual) 2.0 Metamyelocytes % 4.0 H Myelocytes % 1.0 H Neutrophils # (Manual) 24850 H Nucleated RBCs 2 H RBC Morphology See below Basophilic Stippling 1+ H Anisocytosis 1+ H ABG pH 7.29 L* ABG pCO2 62.4 H* ABG pO2 71 L ABG HCO3 30 H ABG Total CO2 32 H ABG O2 Saturation 91 L ABG Base Excess 4.0 H FiO2 28 Sodium Potassium Chloride Carbon Dioxide BUN Creatinine Estimated GFR BUN/Creatinine Ratio Glucose Calcium Procalcitonin Nasal Screen MRSA (PCR) Negative for mrsa 08/08/19 08/08/19 04:50 04:50 WBC RBC Hgb Hct MCV MCH MCHC RDW Plt Count Neut % (Auto) Lymph % (Auto) [place] % (Auto) Eos % (Auto) Baso % (Auto) Lymph # (Auto) [place] # (Auto) Baso # (Auto) Total Counted Seg Neutrophils % Band Neutrophils % Lymphocytes % (Manual) Eosinophils % (Manual) Metamyelocytes % Myelocytes % Neutrophils # (Manual) Nucleated RBCs RBC Morphology Basophilic Stippling Anisocytosis ABG pH ABG pCO2 ABG pO2 ABG HCO3 ABG Total CO2 ABG O2 Saturation ABG Base Excess FiO2 Sodium 138 Potassium 4.3 Chloride 101 Carbon Dioxide 30 BUN 58 H Creatinine 1.35 H Estimated GFR 37.8 L BUN/Creatinine Ratio 43.0 H Glucose 90 Calcium 9.3 Procalcitonin 0.60 H Nasal Screen MRSA (PCR) Assessment & Plan Assessment & Plan narrative: The patient is currently stable status post repeat I and D of the right foot. This included an arthrotomy of the ankle for septic arthritis. Surgery was performed by Dr. Anjel Rm yesterday. As per Dr. Rm's plan, we will initiate wet to dry dressing changes. Depending on how the wounds progress she may eventually become a candidate for suction drainage or potentially she might go on to require below-knee amputation.
[2019-08-08] MEDS: OXYCODONE IR 5 MG TABLET 2.5 MG PO (10:33)
--- NOTE | 2019-08-08 11:46 | P.PN_ITS ---
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 The patient is lying in bed comfortably on her BiPAP. The patient's right foot pain is now controlled with oxycodone. She has no complaints and denies headache, chest pain, shortness of breath, abdominal pain, nausea, vomiting, fever, chills, dysuria, diarrhea or constipation. She is voiding and eliminating without difficulty. Plan for bed bath and and up to chair with shannan lee. Exam Vital Signs (past 8 hours): - 08/08/19 04:00 08/08/19 08:00 08/08/19 08:24 Temperature 98.0 F 98.2 F Pulse Rate 79 81 99 H Respiratory Rate 12 24 18 Blood Pressure 108/52 L 113/56 L Pulse Oximetry 94 95 97 08/08/19 09:21 Temperature Pulse Rate Respiratory Rate Blood Pressure 113/56 L Pulse Oximetry Fraction of Inspired Oxygen 28 Oxygen Delivery Method Nasal Cannula Oxygen Flow Rate 3 Narrative Exam Narrative: General: Elderly female lying in bed, in no acute distress, well-developed, well-nourished, alert and oriented, appropriately interactive. HEENT: Normocephalic, atraumatic. External ears without defect. Pupils equal, round, and reactive to light. Anicteric sclerae, moist conjunctivae, and no lid lag. BiPAP in place. Neck: Supple with full range of motion. No jugular venous distension. No lymphadenopathy or thyromegaly. Cardiovascular: Irregularly irregular without murmurs, rubs, or gallops appreciated. Pulmonary: Clear to auscultation bilaterally in anterior lung simons without crackles, wheezes, or rhonchi. Normal respiratory effort with no use of accessory muscles. Abdomen: Soft, obese, bowel sounds present, nontender, nondistended. No hepatosplenomegaly or masses appreciated. Extremities: No clubbing, cyanosis, or edema of other extremities. Scattered ec chymosis throughout upper extremities. Right foot with dressing in place C/D/I and drain with minimal serosanguineous output. Neurological: Cranial nerves grossly intact. Psychiatric: Patient is oriented to person, place, and time. No confusion. Objective Labs Result Diagrams: 08/08/19 04:50 08/08/19 04:50 Labs: Laboratory Results - last 24 hr 08/07/19 08/07/19 08/08/19 15:16 16:10 04:50 WBC 14.0 H RBC 2.19 L Hgb 7.2 L Hct 21.4 L MCV 97.8 MCH 32.8 MCHC 33.6 RDW 14.9 H Plt Count 316 Neut % (Auto) Not Reportable Lymph % (Auto) Not Reportable [place] % (Auto) Not Reportable Eos % (Auto) Not Reportable Baso % (Auto) Not Reportable Lymph # (Auto) Not Reportable [place] # (Auto) Not Reportable Baso # (Auto) Not Reportable Total Counted 100 Seg Neutrophils % 81.0 H Band Neutrophils % 8.0 H Lymphocytes % (Manual) 4.0 L Eosinophils % (Manual) 2.0 Metamyelocytes % 4.0 H Myelocytes % 1.0 H Neutrophils # (Manual) 90332 H Nucleated RBCs 2 H RBC Morphology See below Basophilic Stippling 1+ H Anisocytosis 1+ H ABG pH 7.29 L* ABG pCO2 62.4 H* ABG pO2 71 L ABG HCO3 30 H ABG Total CO2 32 H ABG O2 Saturation 91 L ABG Base Excess 4.0 H FiO2 28 Sodium Potassium Chloride Carbon Dioxide BUN Creatinine Estimated GFR BUN/Creatinine Ratio Glucose Calcium Procalcitonin Nasal Screen MRSA (PCR) Negative for mrsa 08/08/19 08/08/19 04:50 04:50 WBC RBC Hgb Hct MCV MCH MCHC RDW Plt Count Neut % (Auto) Lymph % (Auto) [place] % (Auto) Eos % (Auto) Baso % (Auto) Lymph # (Auto) [place] # (Auto) Baso # (Auto) Total Counted Seg Neutrophils % Band Neutrophils % Lymphocytes % (Manual) Eosinophils % (Manual) Metamyelocytes % Myelocytes % Neutrophils # (Manual) Nucleated RBCs RBC Morphology Basophilic Stippling Anisocytosis ABG pH ABG pCO2 ABG pO2 ABG HCO3 ABG Total CO2 ABG O2 Saturation ABG Base Excess FiO2 Sodium 138 Potassium 4.3 Chloride 101 Carbon Dioxide 30 BUN 58 H Creatinine 1.35 H Estimated GFR 37.8 L BUN/Creatinine Ratio 43.0 H Glucose 90 Calcium 9.3 Procalcitonin 0.60 H Nasal Screen MRSA (PCR) Assessment & Plan Assessment & Plan narrative: Leyda Nielsen is a 79-year-old female with a past medical history significant for paroxysmal atrial fibrillation, diastolic CHF, chronic hypoxemic and hypercarbic 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 1. Acute MSSA bacteremia, right foot cellulitis, multiple right foot abscesses and possible right ankle septic joint, status post I&D, present on admission. Active. -Blood cultures preliminarily positive for staph in 4:4 bottles with sensitivities pending. Source felt to be her right lower extremity given the severity of her presentation. She has no evidence of pneumonia as chest x-ray unremarkable and no abdominal pain to suspect intra-abdominal source. -Echocardiogram did not demonstrate any hemodynamically significant valvular abnormalities or obvious vegetation. -ESR is markedly elevated at > 140. -CT of the right lower extremity with contrast demonstrated subcutaneous edema of the right lower leg, small peripherally enhancing fluid collection within the medial aspect of the hindfoot probably at represents fluid within the tibialis posterior tendon sheath, suggestive of tenosynovitis. However, a small abscess cannot be completely excluded. No fractures. Moderate degenerative changes of the knee are not adequately characterized. -Blood cultures, wound culture and joint aspirate positive for MSSA on 08/01 and 08/02. Blood cultures have no growth to date on 08/04 and 08/05. -Initial WBC 32.4 and trended down slowly now 14.0 Procalcitonin initially negative at 0.19 then peaked at 4.93 now 0.60. Continue to monitor WBC and procalcitonin daily. -Continue vancomycin with dosing per pharmacist and due to severity of infection broadened ceftriaxone to meropenem 1 g every 12 hours for coverage of Gram- positive, Gram-negative, Pseudomonas, and MRSA. -Continue pain control with tramadol 100 mg 4 times daily as needed for [id number] pain, oxycodone 2.5-5 mg every 4 hours as needed for moderate pain and morphine 1-2 mg IV every 6 hours only as needed for severe breakthrough pain. -Consulted orthopedic surgery, Dr. Rm, who performed I&D of bilateral abscesses on dorsum of foot on 08/04 and later wound VAC change with washout 08/06. Orthopedic surgery is very concerned for that the patient will require a [id number] amputation as her likelihood of healing is very low due to immunosuppression and severity of infection. -Ordered physical and occupational therapy evaluation and treatment, pending. 2. Acute on chronic normocytic anemia, present on admission. Active. -Secondary to sepsis and infection, hemodilution from IV fluid resuscitation and now I&D and acute blood loss. -Initial hemoglobin 8.8. Baseline hemoglobin 10-12. Hemoglobin stable but trended down to 6.6 and received 2 units PRBC with hemoglobin improved to 7.9. Patient has sanguinous drainage of right foot in wound VAC and hemoglobin appears stable and currently 7.2. Transfusion goal hemoglobin < 7.0. -Continue to monitor H&H daily. 3. Chronic hypoxemic and hypercarbic respiratory failure, present on admission. Acute portion resolved. -Chronic respiratory failure multifactorial secondary to obesity hypoventilation syndrome, JEANIE, and COPD. -Patient was severely hypercarbic after initial I&D likely due to hypoventilation versus over oxygenation and then has had intermittent hypoxemia on trilogy for unclear reasons and possibly due to malfunction. Continue BiPAP per RT and [facility] to evaluate Trilogy on Friday08/09/2019. -Does not represent COPD exacerbation. -Continue home Spiriva and Symbicort with hospital formulary medications. -Continue supplemental oxygen to maintain oxygen saturation 88-92% (do not over oxygenate as will drive hypercarbia). Patient currently at baseline oxygen requirement of 3-3.5 L. Continue trilogy or BiPAP at all times while sleeping or napping. 4. Acute kidney injury on CKD stage 3, present on admission. Resolved. -Initially secondary to sepsis, infection and hypermetabolic state and now due to hypotension intra and postoperatively and NSAIDs. -Initial creatinine 1.39 and trended up to 1.82. Creatinine now 1.35. Baseline creatinine unknown but appears to be 1.3. -Continued IV fluids until adequately hydrated then discontinued. -Avoid nephrotoxic agents. -Continue to monitor renal function daily. 5. Acute metabolic encephalopathy, present on admission. Resolved. -Continue to treat infection as above. -CT brain without contrast did not demonstrate any acute intracranial abnormalities. -Continue to avoid SOAP SLABBER depressant medications and reorient and redirect frequently. -Continue Seroquel 25 mg daily at bedtime. Instructed nursing staff to try to keep patient awake and stimulated throughout day and allow uninterrupted sleep with minimal interruptions at night. 6. Acute sepsis, present on admission. Resolved. -Patient presented with leukocytosis and tachycardia with evidence of organ dysfunction including metabolic encephalopathy and DOM with staph bacteremia from sore right lower extremity cellulitis, probable abscesses and possible septic joint. -Early goal directed therapy met including: IV antibiotics and IV fluid resuscitation. 7. Possible gout exacerbation with hyperuricemia, present on admission. Active. -Initial uric acid of 12.9. Repeat uric acid 11.1. Patient has history of gout but is not on uric acid lowering medication at home? -Unclear if this represents a gouty attack. Patient has had several courses of prednisone as an outpatient over last 2 weeks. Plan to avoid steroids at this time given staph bacteremia. -Will plan to start uric acid lowering medication prior to discharge. 8. Paroxysmal atrial fibrillation on Eliquis, chronic, present on admission. Stable. -Continue Eliquis 5 mg twice daily. 9. Diastolic congestive heart failure, present on admission. Stable. -Does not represent CHF exacerbation. -Held metolazone and spironolactone. Previous diuresis have been ineffective at high doses and she he was to follow up with nephrology upon discharge in May which is unclear if pursued. -Continue strict I&Os and daily weights. -Repeated echocardiogram as above to assess for valvular vegetations. 10. Morbid obesity, chronic, present on admission. Stable. -BMI 46.2. -Patient has increased risk of complications due to her morbid obesity. Counseled patient on lifestyle modification including diet and exercise. -Consulted dietitian we appreciate her time and recommendations. 11. Psoriasis on Humira, chronic, present on admission. Stable. -Patient receives Humira injections every 2 weeks, with last dose approximately week and half prior to admission. She reports good response of plaque psoriasis to Humira. -Discontinued Humira and will have patient follow-up with her assistant director of admissions. Code status: Full Code DVT prophylaxis: Eliquis Disposition: Patient remains hospitalized for severe right foot infection and will undoubtedly need shelter facility for rehabilitation at time of discharge which is yet to be determined.
[2019-08-08] MEDS: TRAMADOL 50 MG TABLET 100 MG PO (11:49)
--- NOTE | 2019-08-08 11:55 | PC.NURSE ---
Addendum entered by Solo Monzon R.N. 08/08/19 15:15: Dsg change done ~1300 aft pt reports pain level 5/10 and tolerable. Explained procedure to pt and performed dsg change per order. Gauze was noted to be fairly dry and stuck to bed of wound. Irrigated gauze with sterile NS and carefully removed. Repacked with saline kerlix covered with dry gauze, wrapped with kerlix and secured with lillie wrap. The gauze was saturated with dry serosang drainage. Pt tolerated dsg change fair to poor but was able to relax easily and fairly quickly after dsg change was complete. Hoyered back to bed and RT placed back on bipap so pt could take a nap. Spoke with Dr. Corbett and reported pt difficulties with pain during dsg change. Original Note: Pt intermittently on bipap for sleep or 2-3L NC off bipap for meals/meds/therapy. She is AO x3 and mildly forgetful. She is able to make her needs known with clear speech. She is drowsy but rouses to verbal stimuli. OOB to chair with 2PA and mago. Pt was premedicated prior to moving and for dsg change. After getting up to chair, pt reports increased pain and requests dsg change be performed after add'l med. Set up pt for lunch. She states here appetite is poor. Encouraged fluids and ensure and educated to need for nutrition r/t wound healing. She verbalizes understanding. Opened blinds to let natural light in and reiterated plan of care to pt. She states she understands. Will perform dsg change when pain level tolerable. Call light in easy reach.
--- NOTE | 2019-08-08 13:01 | CM.DPC ---
Addendum entered by Marilee Childress 08/08/19 13:08: Left message with admit at [facility] requesting they review tomorrow - and let us know if second SNF choice needed. KJS Original Note: DCP/continued: Reviewed chart. Patient sitting in recliner next to bed at time of visit. RN/Solo preparing to do dressing change. Previous d/c notes indicate that d/c plan is for patient to go to [facility]. In AM rounds provider discussed possibility of BKA of right leg. At this time it is unknown if this will occur. Last therapy noted dated 08-05-19. OUTPATIENT INTERVIEWING CLERK will ask provider if we can order PT/OT evaluations again. P: Pending hospitalization. Anticipate SNF when medically stable. [facility] is first choice. JACKELIN Hyatt
[2019-08-08] MEDS: MONTELUKAST 10 MG TABLET PO (15:29)
[2019-08-08] MEDS: MORPHINE 2 MG/ML INJ IV (19:40)
[2019-08-08] MEDS: VANCOMYCIN TROUGH 1 REQUEST MISC (21:13)
[2019-08-08] MEDS: QUETIAPINE 25 MG TABLET PO (21:15)
[2019-08-08] MEDS: LATANOPROST 0.005% OPHTH 2.5 ML 1 DROPS EYE-BOTH (21:16)
[2019-08-08 21:18] LABS: Vancomycin Trough 16.7 ug/mL (10-20)
[2019-08-08] MEDS: VANCOMYCIN 1,000 MG/200 ML PIGGYBACK 200 MG IV (21:27)
[2019-08-09] VITALS (20 sets, daily range): BP systolic 102–141; BP diastolic 50–64; PULSE 78–103; RESP 15–30; TEMP 27.9–37.2; O2SAT 90–97
[2019-08-09] MEDS: SODIUM CHLORIDE 0.9% FLUSH 10 ML IV (03:00)
[2019-08-09] MEDS: MORPHINE 2 MG/ML INJ IV (03:00)
[2019-08-09 05:29] LABS: BUN Creatinine Ratio 44.4 (6-22); Blood Urea Nitrogen 60 mg/dL (7-17); Calcium 9.7 mg/dL (8.4-10.2); Carbon Dioxide 32 mmol/L (22-32); Chloride 100 mmol/L (98-107); Estimated Glomerular Filt Rate 37.8 mL/min (>60); Glucose 87 mg/dL (80-110); HEMOLYSIS < 15 (0-50); Potassium 4.5 mmol/L (3.4-5.1); Sodium 137 mmol/L (137-145)
[2019-08-09 05:33] LABS: Hemoglobin 7.2 g/dL (12.0-16.0); Mean Corpuscular Volume 98.5 fL (80-100); White Blood Cell Count 15.2 X10^3/uL (4.5-11.0)
[2019-08-09 05:39] LABS: Mean Corpuscular HGB Conc 32.8 % (30-36); Mean Corpuscular Hemoglobin 32.3 PG (26-34); Platelet Count 349 X10^3/uL (150-400); Red Blood Cell Count 2.24 X10^6/uL (4.0-5.2); Red Cell Distribution Width 14.8 % (11.6-14.8)
[2019-08-09 05:41] LABS: Add Manual Diff / Slide Review YES; Hematocrit 22.1 % (36-46)
[2019-08-09 05:49] LABS: Neutrophils Absolute Manual 12312 /uL (3000-5900); Nucleated Red Blood Cells 2 #/Diff; Total Cells Counted 100
[2019-08-09 05:50] LABS: Anisocytosis 2+; Basophilic Stippling 1+; Polychromasia 1+
[2019-08-09 06:01] LABS: Procalcitonin 0.48 ng/mL (<0.5)
--- NOTE | 2019-08-09 06:15 | PC.NURSE ---
Addendum entered by Sandra Magana R.N. 08/09/19 06:53: Dr Martinez into change drsg to Rt ankle, wet to dry, removed hemavac, had scant serous-sang drainage in tubing. Patient tolerated well, Bi-pap removed, placed on 3L NC. Original Note: Paper Cone Maker Note-Patient tolerated Bi-pap all night, FIO2 .28, 22/12, 24, 2mg IV morphine given once for breakthrough pain.
--- NOTE | 2019-08-09 06:49 | P.PN_ITS ---
Subjective Subjective Date Patient Seen: 08/09/19 Time Patient Seen: 06:49 Interval history: Year old female history Humira for psoriasis with right foot abscess status post I&D x2 Dr. Rm. Patient alert and oriented in bed today. Had been on BiPAP all night. Endorses pain. No fevers or chills. Vital signs stable. Had wet to dry dressing changes started yesterday Exam Vital Signs (past 8 hours): - 08/09/19 00:00 08/09/19 00:40 08/09/19 00:45 Temperature 97.1 F L Pulse Rate 79 Respiratory Rate 21 Blood Pressure 106/53 L 106/53 L Pulse Oximetry 92 92 08/09/19 05:10 08/09/19 05:35 Temperature 97.8 F Pulse Rate 80 Respiratory Rate 28 H Blood Pressure 129/60 129/60 Pulse Oximetry 94 Fraction of Inspired Oxygen 28 Oxygen Delivery Method BiPAP Oxygen Flow Rate 2 Narrative Exam Narrative: Alert lying in bed answers questions appropriately Utilizing BiPAP. Vital signs stable Morbidly obese Right lower extremity: Dressing intact. This was taken down. There are 2 foot wounds. One medial and 1 lateral the level of the midfoot medial wound approximately 4 x 2 cm 1 cm deep. There is some bleeding in the wound bed. No gross purulence. No malodor. Wound bed pink. Lateral wound 5 x 2 x 1 towards the plantar aspect of this incision there is some nonviable tissue but no gross purulence. No malodor. No apparent tracking or new abscesses. Arthrotomy site was closed with sutures. Drain is removed today there is scant serosanguineous drainage in the tubing. Very faint erythema on the leg. Compartments are soft. Wet to dry dressings are replaced Objective Labs Result Diagrams: 08/09/19 05:15 08/09/19 05:15 Labs: Laboratory Results - last 24 hr 08/08/19 08/09/19 08/09/19 20:31 05:15 05:15 WBC 15.2 H RBC 2.24 L Hgb 7.2 L Hct 22.1 L MCV 98.5 MCH 32.3 MCHC 32.8 RDW 14.8 Plt Count 349 Neut % (Auto) Not Reportable Lymph % (Auto) Not Reportable [place] % (Auto) Not Reportable Eos % (Auto) Not Reportable Baso % (Auto) Not Reportable Lymph # (Auto) Not Reportable [place] # (Auto) Not Reportable Baso # (Auto) Not Reportable Total Counted 100 Seg Neutrophils % 77.0 H Band Neutrophils % 4.0 Lymphocytes % (Manual) 12.0 L Monocytes % (Manual) 5.0 Eosinophils % (Manual) 1.0 L Metamyelocytes % 1.0 H Neutrophils # (Manual) 68329 H Nucleated RBCs 2 H RBC Morphology See below Polychromasia 1+ H Basophilic Stippling 1+ H Anisocytosis 2+ H Sodium Potassium Chloride Carbon Dioxide BUN Creatinine Estimated GFR BUN/Creatinine Ratio Glucose Calcium Procalcitonin 0.48 Vancomycin Trough 16.7 08/09/19 05:15 WBC RBC Hgb Hct MCV MCH MCHC RDW Plt Count Neut % (Auto) Lymph % (Auto) [place] % (Auto) Eos % (Auto) Baso % (Auto) Lymph # (Auto) [place] # (Auto) Baso # (Auto) Total Counted Seg Neutrophils % Band Neutrophils % Lymphocytes % (Manual) Monocytes % (Manual) Eosinophils % (Manual) Metamyelocytes % Neutrophils # (Manual) Nucleated RBCs RBC Morphology Polychromasia Basophilic Stippling Anisocytosis Sodium 137 Potassium 4.5 Chloride 100 Carbon Dioxide 32 BUN 60 H Creatinine 1.35 H Estimated GFR 37.8 L BUN/Creatinine Ratio 44.4 H Glucose 87 Calcium 9.7 Procalcitonin Vancomycin Trough Assessment & Plan Post-op Postoperative Procedures: Procedures Operation Date: 08/05/19 13:00 Actual Procedures Side Surgeon p Incision and Drainage Ankle Right Anjel Rm MD Operation Date: 08/07/19 09:30 Actual Procedures Side Surgeon p Incision and Debridement Foot, Arthrotomy Right Anjel Rm MD Right foot abscess and septic ankle status post I&D x2. Continue daily wet-to-dry dressing changes. I do think at this point wounds may be amenable to replacement of the wound VAC sponges. We will watch her labs carefully. Tentatively plan for repeat I and D Friday afternoon or evening for debridement and wound VAC application. Based on intraoperative findings and how patient does would hopefully plan for for wound VAC changes after this. If worsening may require additional procedures. Continue scheduled antibiotics. Cultures Staph aureus MSSA Quality VTE Deep Vein Thrombosis/Pulmonary Embolism Present on Admission: No
[2019-08-09] MEDS: DOCUSATE 100 MG CAPSULE PO (08:36)
[2019-08-09] MEDS: MEROPENEM 1 GM/50 ML PIGGYBACK IV ×2 (08:36→19:48)
[2019-08-09] MEDS: polyethylene glycoL 3350 17 GM POWD.PACK PO (08:36)
[2019-08-09] MEDS: FLUoxetine 20 MG CAPSULE PO (08:38)
[2019-08-09] MEDS: ACETAMINOPHEN 325 MG TABLET 975 MG PO (08:39)
[2019-08-09] MEDS: APIXABAN 5 MG TABLET PO (08:40)
[2019-08-09] MEDS: OXYCODONE IR 5 MG TABLET PO (08:40)
[2019-08-09] MEDS: buPROPion XL 150 MG TAB PO (08:41)
[2019-08-09] MEDS: TIOTROPIUM BROMIDE 2 EACH INH (09:24)
[2019-08-09] MEDS: BUDESONIDE FORMOTEROL 1 EACH INH ×2 (09:36→20:39)
[2019-08-09] MEDS: CEFAZOLIN 2 GM/100 ML FROZ.PIGGY IV ×2 (11:25→16:56)
[2019-08-09] MEDS: ALBUTEROL 2.5 MG/3 ML NEB (ADULT) INH (11:29)
--- NOTE | 2019-08-09 11:55 | PT-IP ANOTE ---
Reviewed chart and discussed pt with R&D ENGINEER who states pt's SpO2 has been low and she may not be appropriate for therapy eval today. Will check in this PM or tomorrow AM to proceed with evaluation.
--- NOTE | 2019-08-09 13:09 | OT.IPNOTE ---
Per nursing pt not appropriate for OT eval today, In addition, pt to have surgery again tomorrow.
--- NOTE | 2019-08-09 15:25 | PC.NURSE ---
pt moved from 230 to 231- she remains on bipap since approx 10am- elevated pressures 24/12 on bipap - [facility] delivered new trilogy machine but pressures are set incorrectly so she remains on our bupap machine - npo after midnight for OR tomorrow
--- NOTE | 2019-08-09 16:47 | RT ---
Spoke to Farrukh about concerns about patients Triology set up that they brought today. I put patient on triology to see how she would do and patient desaturated to the 70's. Put patient back on our bipap and patient is currently stable.
--- NOTE | 2019-08-09 17:14 | PM.PN.1 ---
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 Patient was wide awake early this morning but subsequently has been quite difficult to arouse most of the day. Exam Vital Signs (past 8 hours): - 08/09/19 09:29 08/09/19 11:29 08/09/19 11:56 Temperature Pulse Rate 91 H Respiratory Rate 16 Blood Pressure 102/50 L Pulse Oximetry 97 92 08/09/19 12:00 08/09/19 15:15 08/09/19 15:52 Temperature 98.5 F 98.1 F Pulse Rate 95 H 80 Respiratory Rate 15 22 Blood Pressure 104/53 L 112/56 L 103/57 L Pulse Oximetry 95 97 Fraction of Inspired Oxygen 40 Oxygen Delivery Method BiPAP Oxygen Flow Rate 3 Narrative Exam Narrative: General: Somnolent female barely able to open eyes Lungs: Diminished bilaterally but no crackles or wheeze Heart: Regular rhythm Extremities: Ortho documentation from today: Dressing intact. This was taken down. There are 2 foot wounds. One medial and 1 lateral the level of the midfoot medial wound approximately 4 x 2 cm 1 cm deep. There is some bleeding in the wound bed. No gross purulence. No malodor. Wound bed pink. Lateral wound 5 x 2 x 1 towards the plantar aspect of this incision there is some nonviable tissue but no gross purulence. No malodor. No apparent tracking or new abscesses. Arthrotomy site was closed with sutures. Drain is removed today there is scant serosanguineous drainage in the tubing. Very faint erythema on the leg. Compartments are soft. Wet to dry dressings are replaced Objective Labs Result Diagrams: 08/09/19 05:15 08/09/19 05:15 Labs: Laboratory Results - last 24 hr 08/08/19 08/09/19 08/09/19 20:31 05:15 05:15 WBC 15.2 H RBC 2.24 L Hgb 7.2 L Hct 22.1 L MCV 98.5 MCH 32.3 MCHC 32.8 RDW 14.8 Plt Count 349 Neut % (Auto) Not Reportable Lymph % (Auto) Not Reportable Catron % (Auto) Not Reportable Eos % (Auto) Not Reportable Baso % (Auto) Not Reportable Lymph # (Auto) Not Reportable Catron # (Auto) Not Reportable Baso # (Auto) Not Reportable Total Counted 100 Seg Neutrophils % 77.0 H Band Neutrophils % 4.0 Lymphocytes % (Manual) 12.0 L Monocytes % (Manual) 5.0 Eosinophils % (Manual) 1.0 L Metamyelocytes % 1.0 H Neutrophils # (Manual) 66249 H Nucleated RBCs 2 H RBC Morphology See below Polychromasia 1+ H Basophilic Stippling 1+ H Anisocytosis 2+ H Sodium Potassium Chloride Carbon Dioxide BUN Creatinine Estimated GFR BUN/Creatinine Ratio Glucose Calcium Procalcitonin 0.48 Vancomycin Trough 16.7 08/09/19 05:15 WBC RBC Hgb Hct MCV MCH MCHC RDW Plt Count Neut % (Auto) Lymph % (Auto) Catron % (Auto) Eos % (Auto) Baso % (Auto) Lymph # (Auto) Catron # (Auto) Baso # (Auto) Total Counted Seg Neutrophils % Band Neutrophils % Lymphocytes % (Manual) Monocytes % (Manual) Eosinophils % (Manual) Metamyelocytes % Neutrophils # (Manual) Nucleated RBCs RBC Morphology Polychromasia Basophilic Stippling Anisocytosis Sodium 137 Potassium 4.5 Chloride 100 Carbon Dioxide 32 BUN 60 H Creatinine 1.35 H Estimated GFR 37.8 L BUN/Creatinine Ratio 44.4 H Glucose 87 Calcium 9.7 Procalcitonin Vancomycin Trough Assessment & Plan Assessment & Plan narrative: Leyda Nielsen is a 79-year-old female with a past medical history significant for severe obesity, paroxysmal atrial fibrillation, diastolic CHF, chronic hypoxemic and hypercarbic 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 1. Acute MSSA bacteremia, right foot cellulitis, multiple right foot abscesses and possible right ankle septic joint, status post I&D, present on admission. Active. -Blood cultures preliminarily positive for staph in 4:4 bottles with sensitivities pending. Source felt to be her right lower extremity given the severity of her presentation. She has no evidence of pneumonia as chest x-ray unremarkable and no abdominal pain to suspect intra-abdominal source. -Echocardiogram did not demonstrate any hemodynamically significant valvular abnormalities or obvious vegetation. -ESR is markedly elevated at > 140. -CT of the right lower extremity with contrast demonstrated subcutaneous edema of the right lower leg, small peripherally enhancing fluid collection within the medial aspect of the hindfoot probably at represents fluid within the tibialis posterior tendon sheath, suggestive of tenosynovitis. However, a small abscess cannot be completely excluded. No fractures. Moderate degenerative changes of the knee are not adequately characterized. -Blood cultures, wound culture and joint aspirate positive for MSSA on 08/01 and 08/02. Blood cultures have no growth to date on 08/04 and 08/05. -Initial WBC 32.4 and trended down slowly now 14.0 Procalcitonin initially negative at 0.19 then peaked at 4.93 now < 0.5. -discontinued vancomycin on 08/08 due to no evidence of MRSA -cephazolin 2 g IV q.8 hours for MSSA and continue meropenem 1 g q.12 hours for possible mixed Gram-negative and anaerobes infection in addition to MSSA -Continue pain control with tramadol 100 mg 4 times daily as needed for [id number] pain, oxycodone 2.5-5 mg every 4 hours as needed for moderate pain and morphine 1-2 mg IV every 6 hours only as needed for severe breakthrough pain. -Consulted orthopedic surgery, Dr. Rm, who performed I&D of bilateral abscesses on dorsum of foot on 08/04 and later wound VAC change with washout 08/06. Orthopedic surgery is very concerned for that the patient will require a [id number] amputation as her likelihood of healing is very low due to immunosuppression and severity of infection. -Dr. Streeter saw patient August 08 and planning repeat I & D and wound VAC placed in OR for Wednesday 08/09 -Ordered physical and occupational therapy evaluation and treatment, pending. 2. Acute on chronic normocytic anemia, present on admission. Active. -Secondary to sepsis and infection, hemodilution from IV fluid resuscitation and now I&D and acute blood loss. -Initial hemoglobin 8.8. Baseline hemoglobin 10-12. Hemoglobin stable but trended down to 6.6 and received 2 units PRBC with hemoglobin improved to 7.9. Patient has sanguinous drainage of right foot in wound VAC and hemoglobin appears stable and currently >7. Transfusion for hemoglobin < 7.0. -Continue to monitor H&H daily. 3. Chronic hypoxemic and hypercarbic respiratory failure, present on admission. Acute portion resolved. -Chronic respiratory failure multifactorial secondary to obesity hypoventilation syndrome, JEANIE, and COPD. -Patient was severely hypercarbic after initial I&D likely due to hypoventilation versus over oxygenation and then has had intermittent hypoxemia on trilogy for unclear reasons and possibly due to malfunction. Continue BiPAP per RT and [facility] to evaluate Trilogy on Friday08/09/2019. -Does not represent COPD exacerbation. -Continue home Spiriva and Symbicort with hospital formulary medications. -O2 to maintain sat 88-90%. Continue trilogy or BiPAP at all times while sleeping or napping. 4. Acute kidney injury on CKD stage 3, present on admission. Resolved. -Initially secondary to sepsis, infection and hypermetabolic state and now due to hypotension intra and postoperatively and NSAIDs. -Initial creatinine 1.39 and trended up to 1.82. Creatinine now 1.35. Baseline creatinine unknown but appears to be 1.3. -Continued IV fluids until adequately hydrated then discontinued. -Avoid nephrotoxic agents. -Continue to monitor renal function periodically. 5. Acute metabolic encephalopathy, present on admission, active. -Continue to treat infection as above. -CT brain without contrast did not demonstrate any acute intracranial abnormalities. -on 08/08 discontinued Seroquel 25 mg HS which was started earlier this admission for acute delirium. Patient had been doing much better mentally with resolution delirium. -Nursing staff to try to keep patient awake and stimulated throughout day and allow uninterrupted sleep with minimal interruptions at night. -decreased LOC 08/08 possibly due to high CO2 from too much oxygen, lower O2 to maintain sat 88-90% -restarted maintenance IV fluids due to decreased LOC until patient can take adequate p.o. fluids 6. Acute sepsis, present on admission. Resolved. -Patient presented with leukocytosis and tachycardia with evidence of organ dysfunction including metabolic encephalopathy and DOM with staph bacteremia from sore right lower extremity cellulitis, probable abscesses and possible septic joint. -Early goal directed therapy met including: IV antibiotics and IV fluid resuscitation. 7. Possible gout exacerbation with hyperuricemia, present on admission. Active. -Initial uric acid of 12.9. Repeat uric acid 11.1. Patient has history of gout but is not on uric acid lowering medication at home? -Unclear if this represents a gouty attack. Patient has had several courses of prednisone as an outpatient over last 2 weeks. Plan to avoid steroids at this time given staph bacteremia. -Will plan to start uric acid lowering medication prior to discharge. 8. Paroxysmal atrial fibrillation on Eliquis, chronic, present on admission. Stable. -Continue Eliquis 5 mg twice daily. 9. Diastolic congestive heart failure, present on admission. Stable. -Does not represent CHF exacerbation. -Held metolazone and spironolactone. Previous diuresis have been ineffective at high doses and she he was to follow up with nephrology upon discharge in May which is unclear if pursued. -Continue strict I&Os and daily weights. -Repeated echocardiogram as above to assess for valvular vegetations. 10. Morbid obesity, chronic, present on admission. Stable. -BMI 46.2. -Patient has increased risk of complications due to her morbid obesity. Counseled patient on lifestyle modification including diet and exercise. -Consulted dietitian we appreciate her time and recommendations. 11. Psoriasis on Humira, chronic, present on admission. Stable. -Patient receives Humira injections every 2 weeks, with last dose approximately week and half prior to admission. She reports good response of plaque psoriasis to Humira. 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 Code status: Full Code DVT prophylaxis: Eliquis Disposition: Patient remains hospitalized for severe right foot infection and will undoubtedly need senior care facility for rehabilitation at time of discharge which is yet to be determined. Quality VTE Deep Vein Thrombosis/Pulmonary Embolism Present on Admission: No
--- NOTE | 2019-08-09 17:14 | PC.NURSE ---
Addendum entered by Radhika Brambila R.N. 08/09/19 22:23: FIO2 decreased to 24% sats low 90s. when at 25% sats started increasing 95-96%. Addendum entered by Radhika Brambila R.N. 08/09/19 22:16: patient waking up. Keeping eyes open longer and able to drink some more water. Also is able to make needs known. Wanting to help with moving in bed but extremities still weak. Can lift arms up for a couple of seconds but then they drop back down. Patient is calm and cooperative at this time. After repositioning patient falls back to sleep. Addendum entered by Radhika Brambila R.N. 08/09/19 21:22: Patient woke up for a bit longer. Asking for water, patient was able to stay awake long enough to safely drink some water. Addendum entered by Radhika Brambila R.N. 08/09/19 20:06: RT increased FIO2 to 25%, patient with o2 sats 87-93%. Another ABG ordered per . aware that patient will not be getting any of her po meds this evening d/t her not waking up long enough to swallow safely. Addendum entered by Radhika Brambila R.N. 08/09/19 19:05: o2sats trending down to low 80s and as low as 77%. increased FIO2 to 25%, sats ranging 84%-87%. Patient a little more arousable but still falls back asleep Addendum entered by Radhika Brambila R.N. 08/09/19 18:30: RT in to get ABG pCo2 120, aware. BIPAP FIOS decreased by RT to 21%. o2 sats mid to high 80s. Addendum entered by Radhika Brambila R.N. 08/09/19 18:05: Patient slowly waking up more, opening eyes longer and mumbled some words while on BIPAP, but still fell back asleep. FIO2 @ 35%, o2 sats 88-92% Original Note: Patient resting in bed. Tried to wake up to eat dinner. When calling out her name patient will open eyes for a second but then goes back to sleep. When asked if she wants to wake up to eat dinner she shakes her head no. O2 sat high 90s, FIO2 decreased from 40 to 35%. Will continue to monitor. Dr. Doty aware of patients sleepiness and high o2 sats.
[2019-08-09] MEDS: SODIUM CHLORIDE 0.9% 1,000 ML 100 ML IV (17:57)
[2019-08-09 19:01] LABS: Fractionated Inspired Oxygen 35; HCO3 ABG 35 mmol/L (22-26); Oxygen Saturation ABG 97 % (95-100); PCO2 ABG 87.5 mmHg (35-45); PO2 ABG 120 mmHg (80-100); TCO2 ABG 38 mmol/L (21-31)
[2019-08-09 19:02] LABS: pH ABG 7.21 (7.35-7.45)
[2019-08-09] MEDS: LATANOPROST 0.005% OPHTH 2.5 ML 1 DROPS EYE-BOTH (19:50)
[2019-08-09 20:55] LABS: HCO3 ABG 34 mmol/L (22-26); PCO2 ABG 71.2 mmHg (35-45); PO2 ABG 59 mmHg (80-100); TCO2 ABG 36 mmol/L (21-31); pH ABG 7.28 (7.35-7.45)
[2019-08-09 20:56] LABS: Fractionated Inspired Oxygen 25; Oxygen Saturation ABG 85 % (95-100)
[2019-08-10] VITALS (36 sets, daily range): BP systolic 107–145; BP diastolic 50–72; PULSE 73–95; RESP 10–39; TEMP 30.9–37.4; O2SAT 89–98
--- NOTE | 2019-08-10 00:55 | PC.NURSE ---
Addendum entered by Sandra Magana R.N. 08/10/19 06:31: 0610-Dr Dougherty notified about critical H/H of 6.8/20.8, no s/s of outward bleeding noted, orders received to HL IV and Type and Screen for [address] Cardenas will be in to see patient. Also informed her about patient's agitation overnight. Patient is sleeping now with Bi-pap at 28% FIO2. Addendum entered by Sandra Magana R.N. 08/10/19 05:01: 0500-Patient resting now, Bi-pap has been put back on, but she continues to intermittently tug at it, saying this isn't right. I don't want this. Addendum entered by Sandra Magana R.N. 08/10/19 03:52: 0300-Patient is awake, yelling out, requesting pain medication and water, oriented to person and place, 1 oxycodone given per prn, oral care with swab, repositioned, and ice pack. 0330-Patient awake, pulling off mask, yelling for water and again stating I just want to . I can't handle not having water this long Reeducated about nothing after midnight for surgery tomorrow Informed her it was scheduled at 415pm. Continues to request something for pain Reminded her she recently received medication, says I don't believe you. This is a scam! Daughter called per patient request, message left. [id number]-Daughter phoned back, patient able to speak with her. Patient is currently on 2L NC, SpO2 90-93% Addendum entered by Sandra Magana R.N. 08/10/19 01:55: Patient cooperative and assisted with changing brief after incontinent of loose brown BM. Tolerated being on 3L NC during activity, mouth care given, says thank you Original Note: Topper Packer Notes-Initial assessment, patient awake, restless, pulling at Bi-pap, begging for water, and c/o pain to right ankle, oriented to person and place, reviewed reason for NPO after midnight for surgery tomorrow, she states just let me if I can't drink water. Gave her mouth care with sponge and lip chap, replaced mask. 2mg IV morphine given per prn for FLACC 8, she could not rate pain.
[2019-08-10] MEDS: CEFAZOLIN 2 GM/100 ML FROZ.PIGGY IV ×3 (01:20→16:47)
[2019-08-10] MEDS: OXYCODONE IR 5 MG TABLET PO (02:52)
[2019-08-10] MEDS: SODIUM CHLORIDE 0.9% 1,000 ML 100 ML IV (04:46)
[2019-08-10 05:30] LABS: BUN Creatinine Ratio 45.7 (6-22); Blood Urea Nitrogen 59 mg/dL (7-17); Calcium 9.5 mg/dL (8.4-10.2); Carbon Dioxide 33 mmol/L (22-32); Chloride 101 mmol/L (98-107); Estimated Glomerular Filt Rate 39.9 mL/min (>60); Glucose 93 mg/dL (80-110); HEMOLYSIS < 15 (0-50); Mean Corpuscular HGB Conc 32.7 % (30-36); Mean Corpuscular Hemoglobin 32.2 PG (26-34); Mean Corpuscular Volume 98.7 fL (80-100); Platelet Count 346 X10^3/uL (150-400); Potassium 4.6 mmol/L (3.4-5.1); Red Blood Cell Count 2.11 X10^6/uL (4.0-5.2); Red Cell Distribution Width 14.6 % (11.6-14.8); Sodium 139 mmol/L (137-145); White Blood Cell Count 15.4 X10^3/uL (4.5-11.0)
[2019-08-10 05:45] LABS: Procalcitonin 0.35 ng/mL (<0.5)
[2019-08-10 05:50] LABS: Add Manual Diff / Slide Review YES
[2019-08-10 05:51] LABS: Hemoglobin 6.8 g/dL (12.0-16.0)
[2019-08-10 05:52] LABS: Hematocrit 20.8 % (36-46)
[2019-08-10 06:16] LABS: Neutrophils Absolute Manual 14014 /uL (3000-5900); Total Cells Counted 100
[2019-08-10 06:18] LABS: Anisocytosis 1+; Basophilic Stippling 1+; Polychromasia 1+
--- NOTE | 2019-08-10 07:17 | PM.PREOP ---
Pre-operative Note COVID-19 COVID-19 status: Negative Interval Note History & Physical reviewed/Exam performed by Physician: Yes Changes to H&P: No
[2019-08-10] MEDS: MEROPENEM 1 GM/50 ML PIGGYBACK IV ×2 (07:40→21:04)
[2019-08-10] MEDS: BUDESONIDE FORMOTEROL 1 EACH INH (08:15)
[2019-08-10] MEDS: TIOTROPIUM BROMIDE 2 EACH INH (08:16)
--- NOTE | 2019-08-10 11:07 | PC.NURSE ---
Addendum entered by Vida Jaeger R.N. 08/10/19 14:02: PT UP IN CHAIR SINCE APPROX 0950 UNTIL 1400 USING [employer]CH LIFT - SHE HAS BEEN ON 2L NC MOST OF DAY- WITH SPO2 85-96% - UPDATE TO FAMILY, ROSALIE GLO , HAVE MAINTAINED NPO STATUS. Original Note: pt with increased anxiety and paranoia this am- verbally accusatory of staff you really like to torture me, don't you you are part of this team to kill me reoriented and calmed pt and allowed to come off bipap- she is currently on 2l nc with spo2 93%-bathed and pt brushed own teeth- she remains very weak and can hold toothbrush or phone for only a few seconds before fumbling with it - was incont of bm which guaiac +, receiving 2u rbc this shift and planning for return to OR @ 4PM for further debridement and attempt to place wound vacs to bilat right foot wounds- npo since midnight
--- NOTE | 2019-08-10 12:13 | OT.IPNOTE ---
Pt looking to have surgery today, therefore to check on pt tomorrow.
--- NOTE | 2019-08-10 12:18 | PT-IP ANOTE ---
Pt discussed in AM team rounds. Therapy was asked to hold evaluation today. Pt planned for surgery this afternoon. PT to follow up 08/11/19.
--- NOTE | 2019-08-10 13:36 | PM.PN.1 ---
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 She remains admitted for MSSA bacteremia, and multiple I&Ds with orthopedic surgery of her RLE (today is planned 3rd intervention). She reports her right leg pain is controlled today, but still present. She continues to wax and wane with her mental status, however this morning she was alert and orient x3 although slightly drowsy. She had been having difficulties with her BiPAP and trilogy machine, and possibly receiving too much supplemental oxygen with resulting hypercarbia. Yesterday evening her pCO2 did improved slightly to the mid 70s. Another will be checked tomorrow after operative interventions. Exam Vital Signs (past 8 hours): - 08/10/19 07:45 08/10/19 08:00 08/10/19 08:30 Temperature 99.2 F Pulse Rate 78 90 Respiratory Rate 30 H 32 H Blood Pressure 119/58 L 119/58 L Pulse Oximetry 94 94 08/10/19 09:11 08/10/19 10:28 08/10/19 10:55 Temperature 98.1 F 98.9 F Pulse Rate 78 78 Respiratory Rate 17 28 H Blood Pressure 129/63 132/60 Pulse Oximetry 95 08/10/19 11:00 08/10/19 12:48 08/10/19 12:50 Temperature 98.9 F 99 F 99.0 F Pulse Rate 78 78 79 Respiratory Rate 28 H 39 H 33 H Blood Pressure 132/60 129/66 129/66 Pulse Oximetry 94 Fraction of Inspired Oxygen 0.28 Oxygen Delivery Method BiPAP Oxygen Flow Rate 2 Narrative Exam Narrative: GENERAL APPEARANCE: Ill-appearing, obese female, in no acute distress SKIN: Inspection of the skin reveals no rashes, ulcerations or petechiae. HEENT: Normocephalic atraumatic, extraocular muscles are intact, oropharynx is clear and mucous membranes are moist, neck is supple without adenopathy NECK: Supple and symmetric. There was no thyroid enlargement, and no tenderness, or masses were felt. CHEST: Normal AP diameter and normal contour without any kyphoscoliosis. LUNGS: Auscultation of the lungs revealed no wheezes, rhonchi, or rales. CARDIOVASCULAR: There was a regular rate and rhythm without any murmurs, gallops, rubs. Peripheral pulses were 2+ and symmetric. ABDOMEN: Soft and nontender with normal bowel sounds. No ascites was noted. MUSCULOSKELETAL: She is tender over her right ankle, dressings clear dry and intact. EXTREMITIES: No cyanosis, clubbing. Right lower extremity dressings are clear dry and intact. NEUROLOGIC: Alert and oriented x3, able to move her right lower extremity toes Objective Labs Result Diagrams: 08/10/19 04:55 08/10/19 04:55 Labs: Laboratory Results - last 24 hr 08/09/19 08/09/19 08/10/19 18:13 20:30 04:55 WBC 15.4 H RBC 2.11 L Hgb 6.8 L* Hct 20.8 L* MCV 98.7 MCH 32.2 MCHC 32.7 RDW 14.6 Plt Count 346 Neut % (Auto) Not Reportable Lymph % (Auto) Not Reportable [place] % (Auto) Not Reportable Eos % (Auto) Not Reportable Baso % (Auto) Not Reportable Lymph # (Auto) Not Reportable [place] # (Auto) Not Reportable Baso # (Auto) Not Reportable Total Counted 100 Seg Neutrophils % 83.0 H Band Neutrophils % 8.0 H Lymphocytes % (Manual) 7.0 L Monocytes % (Manual) 1.0 L Eosinophils % (Manual) 1.0 L Neutrophils # (Manual) 44092 H RBC Morphology See below Polychromasia 1+ H Basophilic Stippling 1+ H Anisocytosis 1+ H ABG pH 7.21 L* 7.28 L* ABG pCO2 87.5 H* 71.2 H* ABG pO2 120 H 59 L ABG HCO3 35 H 34 H ABG Total CO2 38 H 36 H ABG O2 Saturation 97 85 L* ABG Base Excess 7.0 H 7.0 H FiO2 35 25 Sodium Potassium Chloride Carbon Dioxide BUN Creatinine Estimated GFR BUN/Creatinine Ratio Glucose Calcium Procalcitonin Blood Type Antibody Screen Crossmatch 08/10/19 08/10/19 08/10/19 04:55 04:55 07:35 WBC RBC Hgb Hct MCV MCH MCHC RDW Plt Count Neut % (Auto) Lymph % (Auto) [place] % (Auto) Eos % (Auto) Baso % (Auto) Lymph # (Auto) [place] # (Auto) Baso # (Auto) Total Counted Seg Neutrophils % Band Neutrophils % Lymphocytes % (Manual) Monocytes % (Manual) Eosinophils % (Manual) Neutrophils # (Manual) RBC Morphology Polychromasia Basophilic Stippling Anisocytosis ABG pH ABG pCO2 ABG pO2 ABG HCO3 ABG Total CO2 ABG O2 Saturation ABG Base Excess FiO2 Sodium 139 Potassium 4.6 Chloride 101 Carbon Dioxide 33 H BUN 59 H Creatinine 1.29 H Estimated GFR 39.9 L BUN/Creatinine Ratio 45.7 H Glucose 93 Calcium 9.5 Procalcitonin 0.35 Blood Type A Positive Antibody Screen Negative Crossmatch See Detail Assessment & Plan Assessment & Plan narrative: Leyda Nielsen is a 79-year-old female with a past medical history significant for severe obesity, paroxysmal atrial fibrillation, diastolic CHF, chronic hypoxemic and hypercarbic 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 She remains admitted for MSSA bacteremia, and multiple I&Ds with orthopedic surgery of her RLE (today is planned 3rd intervention). 1. Acute MSSA bacteremia, right foot cellulitis, multiple right foot abscesses and possible right ankle septic joint, status post I&D, present on admission. Active. -Blood cultures preliminarily positive for staph in 4:4 bottles with sensitivities pending. Source felt to be her right lower extremity given the severity of her presentation. She has no evidence of pneumonia as chest x-ray unremarkable and no abdominal pain to suspect intra-abdominal source. -Echocardiogram did not demonstrate any hemodynamically significant valvular abnormalities or obvious vegetation. -ESR is markedly elevated at > 140. -CT of the right lower extremity with contrast demonstrated subcutaneous edema of the right lower leg, small peripherally enhancing fluid collection within the medial aspect of the hindfoot probably at represents fluid within the tibialis posterior tendon sheath, suggestive of tenosynovitis. However, a small abscess cannot be completely excluded. No fractures. Moderate degenerative changes of the knee are not adequately characterized. -Blood cultures, wound culture and joint aspirate positive for MSSA on 08/01 and 08/02. Blood cultures have no growth to date on 08/04 and 08/05. -Initial WBC 32.4 and trended down slowly now 14.0 Procalcitonin initially negative at 0.19 then peaked at 4.93 now < 0.5. -discontinued vancomycin on 08/08 due to no evidence of MRSA -cephazolin 2 g IV q.8 hours for MSSA and continue meropenem 1 g q.12 hours for possible mixed Gram-negative and anaerobes infection in addition to MSSA -Continue pain control with tramadol 100 mg 4 times daily as needed for [id number] pain, oxycodone 2.5-5 mg every 4 hours as needed for moderate pain and morphine 1-2 mg IV every 6 hours only as needed for severe breakthrough pain. -Consulted orthopedic surgery, Dr. Rm, who performed I&D of bilateral abscesses on dorsum of foot on 08/04 and later wound VAC change with washout 08/06. Orthopedic surgery is very concerned for that the patient will require a [id number] amputation as her likelihood of healing is very low due to immunosuppression and severity of infection. -Dr. Streeter saw patient August 08 and planning repeat I & D today. -Ordered physical and occupational therapy evaluation and treatment, pending further orthopedic interventions. 2. Acute on chronic normocytic anemia, present on admission. Active. -Secondary to sepsis and infection, hemodilution from IV fluid resuscitation and now I&D and acute blood loss. -Initial hemoglobin 8.8. Baseline hemoglobin 10-12. Hemoglobin stable but trended down to 6.6 and received 2 units PRBC with hemoglobin improved to 7.9. Patient has sanguinous drainage of right foot in wound VAC and hemoglobin appears stable and currently >7. Transfusion for hemoglobin < 7.0. -Continue to monitor H&H daily. -Additional 2U PRBC given this AM for Hg <7.0 and prior to operative interventions. 3. Chronic hypoxemic and hypercarbic respiratory failure, present on admission. Acute portion resolved. -Chronic respiratory failure multifactorial secondary to obesity hypoventilation syndrome, JEANIE, and COPD. -Patient was severely hypercarbic after initial I&D likely due to hypoventilation versus over oxygenation and then has had intermittent hypoxemia on trilogy for unclear reasons and possibly due to malfunction. Continue BiPAP per RT and [facility] to evaluate Trilogy on Friday08/09/2019. -Does not represent COPD exacerbation. -Continue home Spiriva and Symbicort with hospital formulary medications. -O2 to maintain sat 88-90%. Continue trilogy or BiPAP at all times while sleeping or napping. Avoid excess O2. 4. Acute kidney injury on CKD stage 3, present on admission. Resolved. -Initially secondary to sepsis, infection and hypermetabolic state and now due to hypotension intra and postoperatively and NSAIDs. -Initial creatinine 1.39 and trended up to 1.82. Creatinine now 1.35. Baseline creatinine unknown but appears to be 1.3. -Continued IV fluids until adequately hydrated then discontinued. -Avoid nephrotoxic agents. -Continue to monitor renal function periodically. 5. Acute metabolic encephalopathy, present on admission, active. -Continue to treat infection as above. -CT brain without contrast did not demonstrate any acute intracranial abnormalities. -on 08/08 discontinued Seroquel 25 mg HS which was started earlier this admission for acute delirium. Patient had been doing much better mentally with resolution delirium. -Nursing staff to try to keep patient awake and stimulated throughout day and allow uninterrupted sleep with minimal interruptions at night. -decreased LOC 08/08 possibly due to high CO2 from too much oxygen, lower O2 to maintain sat 88-90% -restarted maintenance IV fluids due to decreased LOC until patient can take adequate p.o. fluids 6. Acute sepsis, present on admission. Resolved. -Patient presented with leukocytosis and tachycardia with evidence of organ dysfunction including metabolic encephalopathy and DOM with staph bacteremia from sore right lower extremity cellulitis, probable abscesses and possible septic joint. -Early goal directed therapy met including: IV antibiotics and IV fluid resuscitation. 7. Possible gout exacerbation with hyperuricemia, present on admission. Active. -Initial uric acid of 12.9. Repeat uric acid 11.1. Patient has history of gout but is not on uric acid lowering medication at home? -Unclear if this represents a gouty attack. Patient has had several courses of prednisone as an outpatient over last 2 weeks. Plan to avoid steroids at this time given staph bacteremia. -Will plan to start uric acid lowering medication prior to discharge. 8. Paroxysmal atrial fibrillation on Eliquis, chronic, present on admission. Stable. -Continue Eliquis 5 mg twice daily. 9. Diastolic congestive heart failure, present on admission. Stable. -Does not represent CHF exacerbation. -Held metolazone and spironolactone. Previous diuresis have been ineffective at high doses and she he was to follow up with nephrology upon discharge in May which is unclear if pursued. -Continue strict I&Os and daily weights. -Repeated echocardiogram as above to assess for valvular vegetations. 10. Morbid obesity, chronic, present on admission. Stable. -BMI 46.2. -Patient has increased risk of complications due to her morbid obesity. Counseled patient on lifestyle modification including diet and exercise. -Consulted dietitian we appreciate her time and recommendations. 11. Psoriasis on Humira, chronic, present on admission. Stable. -Patient receives Humira injections every 2 weeks, with last dose approximately week and half prior to admission. She reports good response of plaque psoriasis to Humira. 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 Code status: Full Code DVT prophylaxis: Eliquis Disposition: Patient remains hospitalized for severe right foot infection and will undoubtedly need group home facility for rehabilitation at time of discharge which is yet to be determined. Quality VTE Deep Vein Thrombosis/Pulmonary Embolism Present on Admission: No
--- NOTE | 2019-08-10 14:39 | CM.DPC ---
DCP/continued: Reviewed chart. [facility] following for potential admit when patient medically stable. Patient received 2 units of blood today. Patient on 02 at baseline and has home trilogy (now at the hospital). Current medical plan is for patient to go for I&D this afternoon. August from [facility] aware of above. Pending outcome and patient needs at time of d/c may need to have second SNF option. Will refer to CM team for follow up. In addition, patient will need COVID test prior to discharge. P: Follow closely for planning. Patient will definitely have d/c planning needs. PASRR needed if patient go to SNF. JACKELIN Hyatt
--- NOTE | 2019-08-10 16:23 | PM.OP.1 ---
Operative Date/Time/Diagnoses Date of procedure: 08/10/19 Time of procedure: 16:45 Pre-op diagnosis: Right foot abscess MSSA bacteremia Morbid obesity BMI 48.8 Plaque psoriasis COPD AFib Post-op diagnosis: same Procedure & Clinicians Procedure: 1. Irrigation debridement right foot abscesses medial and lateral including debridement skin subcutaneous tissue and fascia and bone. CPT code 35252 x2 2. Application wound VAC less than 50 sq cm CPT code 48296 Same procedure as scheduled: Yes Indications: Patient is a 79-year-old female with a history of COPD AFib morbid obesity and plaque psoriasis formally on Humira. She developed MSSA bacteremia and right foot abscesses and a septic right ankle please eventually also grew MSSA. She has previously been washed out twice by Dr. Rm including an irrigation of her ankle on 08/05. She has been on scheduled antibiotics. She has been indicated today for repeat irrigation debridement of her open right foot wounds and possible wound VAC application. The risks and benefits of the procedure have been discussed with the patient even opportunity to ask questions. The risks of surgery include but are not limited to infection, wound healing problems, need for additional procedures, persistence of pain, damage to nerves and blood vessels, amputation, DVT, PE, cardiopulmonary complications and . The patient expressed a thorough understanding of the risks and benefits of surgery and has elected to proceed. Consent was signed today. Surgeon: Annalisa Martinez Click Yes if Unassisted: Yes Anesthesia Type: General Operative Notes Findings: Sutures arthrotomy incision sutures in place. No erythema no drainage. Two dorsal foot wounds medial and lateral. Lateral wound approximately 6 x 4 cm 1 cm deep. Medial wound 5 by 3 cm 1 cm deep Closure Type: not applicable Specimen(s): none sent Applied: other (Wound VAC) Estimated Blood Loss (mL): 30 Blood products transfused: none Tourniquet time (min): 0 Procedure in detail: Patient was seen in the ICU earlier in the day in the site of surgery was marked. She was then brought directly from the ICU to the operating room. She was moved from the bed to the operating table and all bony prominences were well padded. Anesthesia was administered by the anesthesia team. An SCD was on the non operative leg. The operative extremity was prepped and draped in the standard sterile fashion. A formal time-out procedure was performed confirming the patient's side and site of surgery. Patient was on scheduled antibiotics and her scheduled dose was administered in the immediate perioperative timing. Attention was turned to the right lower extremity. No tourniquet was used. The medial and lateral wounds were inspected. Lateral wound is approximately 6 cm x 4 cm medial wound 5 x 3 cm. Previous ankle arthrotomy incisions well approximated with sutures. There is no erythema around the arthrotomy site. There is a very faint erythema on the lower extremity pitting edema on the foot. No evidence or areas of fluctuance. Necrotic tissue was present the plantar aspect of the lateral incision around the area of the abductor digiti minimi. Extensor digitorum brevis was visible and viable in the wound. Bottom of the wound did probe out to bone at the 5th metatarsal. Wound did tunnel dorsally over the foot. Using a curette additional necrotic tissue was debrided from the dorsum. There was no gross purulence. Devitalized fascia muscle and 1 slip of the DB were also debrided back to good bleeding tissue. Small amount of periosteum and bone at the base of the wound was also debrided using a rongeur. Next attention was turned to the medial wound. This was a proximally 5 x 3 cm. This went deep to bone at the level of the navicular and cuneiform. A good portion of the posterior tibialis tendon did appear to be intact and palpable at the base and posterior aspect of the wound however more dorsal parts of the insertion may have been debrided. Again the skin edges subcutaneous tissue fascia and bone were debrided. Again the rongeur was used at the base of the wound and the bony prominences at the end navicular cuneiform until good bleeding bone and tissues were obtained. Again the wound was able to tunnel dorsally at the dorsum of the foot. This was debrided using a curette and blunt dissection. Wound was then irrigated using cysto tubing and 6 L of saline 1st 3 L had 80 of gentamicin. Was a small amount of bleeding from the dorsal veins as well as a superficial vein saphenous branch. These were cauterized additionally Gelfoam and throbmin and manual pressure was utilized with good hemostasis after about 5 minutes of pressure. Wound VAC sponges were then fashioned in the medial and lateral wounds. Care was taken to prep the skin with Mastisol and the wound VAC film was placed in a border around each of the wounds and over the dorsum of the foot where the bridge would go. Wound VAC sponges were then placed in the wounds and bridged over the dorsum of the foot and connected. Excellent suction was obtained -125 mm of mercury. An Adaptic and gauze dressing was then placed over the previous arthrotomy site followed by a Tegaderm a Germán wrap was then placed with an ABD pad padded around the vac hose. This terminated the procedure. The patient was woken from anesthesia and moved to the recovery room in good condition. There no immediate complications from this procedure. All counts were correct. Complications: none Post-operative Condition: stable Disposition: ICU Plan for aftercare: Patient will return to the ICU. Continue scheduled antibiotics. Plan for floor wound VAC change or Friday. Based on appearance of wound at the VAC change would plan for either continued floor back changes or additional debridement for procedure as indicated. Discussed with patient's daughter results of surgery today and plans.
--- NOTE | 2019-08-10 16:40 | PC.NURSE ---
Addendum entered by Pam Davis R.N. 08/10/19 19:44: 1935 Pt returned from PACU, reconnected to monitor and BiPap with sats at 93%. Pt awake during assessment, but falls back to sleep. When touching right foot (surgical site) pt screams out in pain says ouch, ouch that hurts but falls back to sleep. First set of vitals 122/60 HR 94 Addendum entered by Pam Davis R.N. 08/10/19 18:49: Case management set up a Palliative care consultation with the family for 08/11/2019 Addendum entered by Pam Davis R.N. 08/10/19 16:46: 1634 Pt taken in bed to surgery, no further contact at this time. Original Note: Assessing pt at start of shift, pt extremely accusatory of this nurse, stating you are trying to kill me, I want a police liaison officer right now, I'm telling my sister that you are trying to kill me and she needs to send a police liaison officer here right now. reoriented to place and situation, pt states you are a liar, I need to get out of here, give me water and call my family I explained to pt that she is going to surgery at 1600, there fore she is not allowed water, offered mouth swab, which was accepted. Pt is able to press call light, bed in low, locked position, will continue to monitor.
[2019-08-10] MEDS: LACTATED RINGERS 1,000 ML 42 ML IV (16:42)
--- NOTE | 2019-08-10 17:26 | SUR.OPER ---
Patient has multiple bruises over her body. Large purple bruising over lateral aspect of left thigh about 10 across.
[2019-08-10] MEDS: SODIUM CHLORIDE 0.9% 3,000 ML, GENTAMICIN 80 MG IRR (17:29)
[2019-08-10] MEDS: THROMBIN (RECOMBINANT) 5,000 UNIT VIAL 5000 UNIT TOP (17:51)
[2019-08-10] MEDS: fentaNYL 100 MCG/2 ML INJ IV (18:49)
--- NOTE | 2019-08-10 19:54 | RT ---
Pt arrived from PACU (pt s/p I&D # 3 this admission R ankle). Pt lethargic but responds some. Placed to hospital Bipap machine. Settings adjusted for pt comfort and synchronicity. Lung sound distant with scattered exp rhonchi.
[2019-08-10 20:42] LABS: Hematocrit 23.7 % (36-46); Mean Corpuscular HGB Conc 33.8 % (30-36); Mean Corpuscular Hemoglobin 32.3 PG (26-34); Mean Corpuscular Volume 95.5 fL (80-100); Platelet Count 353 X10^3/uL (150-400); Red Blood Cell Count 2.48 X10^6/uL (4.0-5.2); Red Cell Distribution Width 15.7 % (11.6-14.8); White Blood Cell Count 17.6 X10^3/uL (4.5-11.0)
[2019-08-10 20:44] LABS: Add Manual Diff / Slide Review YES
[2019-08-10 20:49] LABS: Alanine Aminotransferase 12 IU/L (<35); Albumin 2.7 g/dL (3.5-5.0); Albumin Globulin Ratio 0.8 (1.0-2.8); Alkaline Phosphatase 109 U/L (38-126); Aspartate Aminotransferase 41 IU/L (14-36); Bilirubin Total 0.3 mg/dL (0.2-1.3); Blood Urea Nitrogen 54 mg/dL (7-17); Calcium 9.5 mg/dL (8.4-10.2); Carbon Dioxide 33 mmol/L (22-32); Chloride 102 mmol/L (98-107); Estimated Glomerular Filt Rate 48.9 mL/min (>60); Globulin 3.3 g/dL (1.7-4.1); Glucose 116 mg/dL (80-110); HEMOLYSIS < 15 (0-50); Magnesium 2.6 mg/dL (1.6-2.3); Phosphorous 3.6 mg/dL (2.8-4.1); Potassium 4.7 mmol/L (3.4-5.1); Sodium 139 mmol/L (137-145)
[2019-08-10 21:00] LABS: Troponin I 0.021 ng/mL (0.01-0.034)
[2019-08-10 21:12] LABS: Neutrophils Absolute Manual 15488 /uL (3000-5900); Total Cells Counted 100
[2019-08-10 21:13] LABS: Anisocytosis 1+; Polychromasia 1+
[2019-08-10] MEDS: MORPHINE 2 MG/ML INJ IV ×2 (23:20)
[2019-08-10] MEDS: SODIUM CHLORIDE 0.9% FLUSH 10 ML IV (23:21)
--- NOTE | 2019-08-10 23:59 | PC.NURSE ---
Addendum entered by Sandra Magana R.N. 08/11/19 06:27: Patient is awake, oriented, calm, and participating with care. Call placed to sister per her request, message left. Addendum entered by Sandra Magana R.N. 08/11/19 05:20: Error to previous time entered in last addendum: 0445 should be 0345 and 0450 should be 0350. Patient rested over an hour with Bi-pap on, no c/o pain, tolerated ABG just now. RT put NC on per her request. Addendum entered by Sandra Magana R.N. 08/11/19 03:47: 0315-Patient rested with Bi-pap on until now, she used call light to request pain medication and have the mask off for awhile 100mg Tramadol given per prn and put on 1L NC, told patient I will replace Bi-pap in 20-30 minutes. 0445-Used call light to report pain is still 10/10, moaning and crying I can't take this, oh Lord, just let me . She is drowsy and nods off as she is speaking, repositioned RLE and placed an ice pack. 0450-Bi-pap back on. Patient is now banging on bedrails, yelling I will kill myself if you don't get me more pain medicine. Reviewed medication and prn schedule with her. Says I can't believe you are so mean. Addendum entered by Sandra Magana R.N. 08/11/19 01:18: 0100-Patient has been dozing with 1L NC, SpO2 >94%, reluctantly agreed to put Bi-pap back on, RT placed it. Original Note: It Risk Analyst Note-At change of shift between 2315 and 2340, patient pulled Bi-pap of 4 times, yelling out for water, refuses to put mask back on even after getting drinks of water, says I will do it later. Mood is very labile and somewhat paranoid, says thank you for your care, then will follow it with I don't believe you. or Just let me . Also c/o pain to right foot, for which morphine per prn was given, elevated on pillows, lillie CDI, wound vac patent.
[2019-08-11] VITALS (13 sets, daily range): BP systolic 104–122; BP diastolic 51–61; PULSE 81–92; RESP 17–28; TEMP 31.8–37.2; O2SAT 92–97
[2019-08-11] MEDS: CEFAZOLIN 2 GM/100 ML FROZ.PIGGY IV ×3 (00:44→18:54)
[2019-08-11] MEDS: SODIUM CHLORIDE 0.9% FLUSH 10 ML IV (00:44)
--- NOTE | 2019-08-11 01:01 | RT ---
Pt took off her bipap mask at midnight, refused to wear it, per Nurse Flores. I placed the Bipap mask back on patient.
[2019-08-11] MEDS: TRAMADOL 50 MG TABLET 100 MG PO ×4 (03:16→19:41)
[2019-08-11 05:21] LABS: Hemoglobin 7.7 g/dL (12.0-16.0); Mean Corpuscular HGB Conc 33.8 % (30-36); Mean Corpuscular Hemoglobin 32.2 PG (26-34); Mean Corpuscular Volume 95.3 fL (80-100); Platelet Count 347 X10^3/uL (150-400); Red Blood Cell Count 2.38 X10^6/uL (4.0-5.2); Red Cell Distribution Width 15.4 % (11.6-14.8); White Blood Cell Count 14.4 X10^3/uL (4.5-11.0)
[2019-08-11 05:23] LABS: Alanine Aminotransferase 10 IU/L (<35); Albumin 2.7 g/dL (3.5-5.0); Albumin Globulin Ratio 0.8 (1.0-2.8); Alkaline Phosphatase 96 U/L (38-126); Aspartate Aminotransferase 32 IU/L (14-36); BUN Creatinine Ratio 48.5 (6-22); Bilirubin Total 0.3 mg/dL (0.2-1.3); Bilirubin Unconjugated 0.1 mg/dL (0.0-1.1); Blood Urea Nitrogen 47 mg/dL (7-17); Calcium 9.4 mg/dL (8.4-10.2); Carbon Dioxide 34 mmol/L (22-32); Chloride 102 mmol/L (98-107); Estimated Glomerular Filt Rate 55.4 mL/min (>60); Globulin 3.3 g/dL (1.7-4.1); Glucose 93 mg/dL (80-110); HEMOLYSIS < 15 (0-50); Magnesium 2.4 mg/dL (1.6-2.3); Potassium 4.4 mmol/L (3.4-5.1); Sodium 138 mmol/L (137-145)
[2019-08-11 05:24] LABS: Add Manual Diff / Slide Review YES; Hematocrit 22.7 % (36-46)
[2019-08-11 05:32] LABS: PCO2 ABG 56.8 mmHg (35-45); pH ABG 7.37 (7.35-7.45)
[2019-08-11 05:33] LABS: Fractionated Inspired Oxygen 25; HCO3 ABG 33 mmol/L (22-26); Oxygen Saturation ABG 91 % (95-100); PO2 ABG 65 mmHg (80-100); TCO2 ABG 34 mmol/L (21-31)
[2019-08-11 05:48] LABS: Neutrophils Absolute Manual 12816 /uL (3000-5900); Nucleated Red Blood Cells 2 #/Diff; Total Cells Counted 100
[2019-08-11 05:49] LABS: Polychromasia 1+
[2019-08-11 05:50] LABS: Anisocytosis 2+
[2019-08-11] MEDS: BUDESONIDE FORMOTEROL 1 EACH INH ×2 (06:14→17:21)
[2019-08-11] MEDS: TIOTROPIUM BROMIDE 2 EACH INH (06:14)
--- NOTE | 2019-08-11 07:14 | PM.PN.1 ---
Subjective Subjective Date Patient Seen: 08/11/19 Time Patient Seen: 07:14 Interval history: Patient is comfortable this am. Says her foot is feeling better. She wants to be transferred out of ICU. She is on room air this morning, appears comfortable. Now POD#1 from right foor I&D and applicaiton of wound vac. Exam Vital Signs (past 8 hours): - 08/10/19 23:49 08/11/19 04:10 08/11/19 06:24 Temperature 97.1 F L 97.8 F Pulse Rate 87 81 90 Respiratory Rate 20 25 H 22 Blood Pressure 144/62 H 104/56 L Pulse Oximetry 92 93 92 Fraction of Inspired Oxygen 25 Oxygen Delivery Method Nasal Cannula Oxygen Flow Rate 1.5 Narrative Exam Narrative: Able to wiggle big toe, sensation intact to toes, wound vac holding suction. Objective Labs Result Diagrams: 08/11/19 05:00 08/11/19 05:00 Labs: Laboratory Results - last 24 hr 08/10/19 08/10/19 08/10/19 07:35 20:20 20:20 WBC 17.6 H RBC 2.48 L Hgb 8.0 L Hct 23.7 L MCV 95.5 D MCH 32.3 MCHC 33.8 RDW 15.7 H Plt Count 353 Neut % (Auto) Not Reportable Lymph % (Auto) Not Reportable [place] % (Auto) Not Reportable Eos % (Auto) Not Reportable Baso % (Auto) Not Reportable Lymph # (Auto) Not Reportable [place] # (Auto) Not Reportable Baso # (Auto) Not Reportable Total Counted 100 Seg Neutrophils % 82.0 H Band Neutrophils % 6.0 Lymphocytes % (Manual) 4.0 L Monocytes % (Manual) 3.0 Metamyelocytes % 5.0 H Neutrophils # (Manual) 63341 H Nucleated RBCs RBC Morphology See below Polychromasia 1+ H Anisocytosis 1+ H ABG pH ABG pCO2 ABG pO2 ABG HCO3 ABG Total CO2 ABG O2 Saturation ABG Base Excess FiO2 Sodium 139 Potassium 4.7 Chloride 102 Carbon Dioxide 33 H BUN 54 H Creatinine 1.08 H Estimated GFR 48.9 L BUN/Creatinine Ratio 50.0 H Glucose 116 H Calcium 9.5 Phosphorus 3.6 Magnesium 2.6 H Total Bilirubin 0.3 Conjugated Bilirubin Unconjugated Bilirubin AST 41 H ALT 12 Alkaline Phosphatase 109 Troponin I 0.021 Total Protein 6.0 L Albumin 2.7 L Globulin 3.3 Albumin/Globulin Ratio 0.8 L Blood Type A Positive Antibody Screen Negative Crossmatch See Detail 08/11/19 08/11/19 08/11/19 05:00 05:00 05:09 WBC 14.4 H RBC 2.38 L Hgb 7.7 L Hct 22.7 L MCV 95.3 MCH 32.2 MCHC 33.8 RDW 15.4 H Plt Count 347 Neut % (Auto) Not Reportable Lymph % (Auto) Not Reportable [place] % (Auto) Not Reportable Eos % (Auto) Not Reportable Baso % (Auto) Not Reportable Lymph # (Auto) Not Reportable [place] # (Auto) Not Reportable Baso # (Auto) Not Reportable Total Counted 100 Seg Neutrophils % 85.0 H Band Neutrophils % 4.0 Lymphocytes % (Manual) 10.0 L Monocytes % (Manual) 1.0 L Metamyelocytes % Neutrophils # (Manual) 27994 H Nucleated RBCs 2 H RBC Morphology See below Polychromasia 1+ H Anisocytosis 2+ H ABG pH 7.37 ABG pCO2 56.8 H ABG pO2 65 L ABG HCO3 33 H ABG Total CO2 34 H ABG O2 Saturation 91 L ABG Base Excess 7.0 H FiO2 25 Sodium 138 Potassium 4.4 Chloride 102 Carbon Dioxide 34 H BUN 47 H Creatinine 0.97 Estimated GFR 55.4 L BUN/Creatinine Ratio 48.5 H Glucose 93 Calcium 9.4 Phosphorus Magnesium 2.4 H Total Bilirubin 0.3 Conjugated Bilirubin 0.0 Unconjugated Bilirubin 0.1 AST 32 ALT 10 Alkaline Phosphatase 96 Troponin I Total Protein 6.0 L Albumin 2.7 L Globulin 3.3 Albumin/Globulin Ratio 0.8 L Blood Type Antibody Screen Crossmatch Assessment & Plan Assessment & Plan narrative: Patient is a 79 yo F now s/p 3x I&D and placement of wound vac yesterday evening. 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 She has a history of gout and was treated with prednisone for several weeks. She subsequently had worsening symptoms and presented to the ED. She remains admitted for [facility] bacteremia, and multiple I&Ds with orthopedic surgery of her RLE Foot abscess/septic ankle - continue abx - wound vac in place, plan for change on floors or friday - will continue to monitory closely - NWB RLE Time Spent With Patient Time with patient: 15-24 minutes Quality VTE Deep Vein Thrombosis/Pulmonary Embolism Present on Admission: No
[2019-08-11] MEDS: FLUoxetine 20 MG CAPSULE PO (07:32)
[2019-08-11] MEDS: buPROPion XL 150 MG TAB PO (07:32)
[2019-08-11] MEDS: APIXABAN 5 MG TABLET PO (07:34)
[2019-08-11] MEDS: polyethylene glycoL 3350 17 GM POWD.PACK PO (07:35)
[2019-08-11] MEDS: ACETAMINOPHEN 325 MG TABLET 975 MG PO ×2 (07:35→20:40)
[2019-08-11] MEDS: DOCUSATE 100 MG CAPSULE PO ×2 (07:40→20:32)
[2019-08-11] MEDS: MEROPENEM 1 GM/50 ML PIGGYBACK IV ×2 (08:14→20:31)
[2019-08-11] MEDS: MORPHINE 2 MG/ML INJ IV ×2 (08:17→18:51)
--- NOTE | 2019-08-11 08:47 | P.PN_ITS ---
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 She remains admitted for MSSA bacteremia, and is now s/p 3x I&D with wound vac placement yesterday of her RLE. She reports her right leg pain is controlled, and complains more back pain. She continues to wax and wane with her mental status, however this morning she was alert and orient x3 although slightly drowsy after pain medications. Her blood gas is improved this AM with a PCO2 near her baseline in the 50s. Her stool was guaiac positive yesterday. Her Hg did improve from 6.8 to 7.7 today however she did receive 2U PRBC which is an under response. Patient's apixaban will be held today and patient was started on protonix therapy. Exam Vital Signs (past 8 hours): - 08/11/19 04:10 08/11/19 06:24 Temperature 97.8 F Pulse Rate 81 90 Respiratory Rate 25 H 22 Blood Pressure 104/56 L Pulse Oximetry 93 92 Fraction of Inspired Oxygen 25 Oxygen Delivery Method Nasal Cannula Oxygen Flow Rate 1.5 Narrative Exam Narrative: GENERAL APPEARANCE: Ill-appearing, obese female, in no acute distress SKIN: Inspection of the skin reveals no rashes, ulcerations or petechiae. HEENT: Normocephalic atraumatic, extraocular muscles are intact, oropharynx is clear and mucous membranes are moist, neck is supple without adenopathy NECK: Supple and symmetric. There was no thyroid enlargement, and no tenderness, or masses were felt. CHEST: Normal AP diameter and normal contour without any kyphoscoliosis. LUNGS: Auscultation of the lungs revealed no wheezes, rhonchi, or rales. CARDIOVASCULAR: There was a regular rate and rhythm without any murmurs, gallops, rubs. Peripheral pulses were 2+ and symmetric. ABDOMEN: Soft and nontender with normal bowel sounds. No ascites was noted. MUSCULOSKELETAL: Improved R foot tenderness, now minimal. Wound vac in place with clear dressings and serosanguinous drainage. EXTREMITIES: No cyanosis, clubbing. Right lower extremity dressings are clear dry. Upper extremity and lower extremity non-pitting edema bilaterally. NEUROLOGIC: Alert and oriented x3, able to move her right toes Objective Labs Result Diagrams: 08/11/19 05:00 08/11/19 05:00 Labs: Laboratory Results - last 24 hr 08/10/19 08/10/19 08/10/19 07:35 20:20 20:20 WBC 17.6 H RBC 2.48 L Hgb 8.0 L Hct 23.7 L MCV 95.5 D MCH 32.3 MCHC 33.8 RDW 15.7 H Plt Count 353 Neut % (Auto) Not Reportable Lymph % (Auto) Not Reportable [place] % (Auto) Not Reportable Eos % (Auto) Not Reportable Baso % (Auto) Not Reportable Lymph # (Auto) Not Reportable [place] # (Auto) Not Reportable Baso # (Auto) Not Reportable Total Counted 100 Seg Neutrophils % 82.0 H Band Neutrophils % 6.0 Lymphocytes % (Manual) 4.0 L Monocytes % (Manual) 3.0 Metamyelocytes % 5.0 H Neutrophils # (Manual) 83668 H Nucleated RBCs RBC Morphology See below Polychromasia 1+ H Anisocytosis 1+ H ABG pH ABG pCO2 ABG pO2 ABG HCO3 ABG Total CO2 ABG O2 Saturation ABG Base Excess FiO2 Sodium 139 Potassium 4.7 Chloride 102 Carbon Dioxide 33 H BUN 54 H Creatinine 1.08 H Estimated GFR 48.9 L BUN/Creatinine Ratio 50.0 H Glucose 116 H Calcium 9.5 Phosphorus 3.6 Magnesium 2.6 H Total Bilirubin 0.3 Conjugated Bilirubin Unconjugated Bilirubin AST 41 H ALT 12 Alkaline Phosphatase 109 Troponin I 0.021 Total Protein 6.0 L Albumin 2.7 L Globulin 3.3 Albumin/Globulin Ratio 0.8 L Blood Type A Positive Antibody Screen Negative Crossmatch See Detail 08/11/19 08/11/19 08/11/19 05:00 05:00 05:09 WBC 14.4 H RBC 2.38 L Hgb 7.7 L Hct 22.7 L MCV 95.3 MCH 32.2 MCHC 33.8 RDW 15.4 H Plt Count 347 Neut % (Auto) Not Reportable Lymph % (Auto) Not Reportable [place] % (Auto) Not Reportable Eos % (Auto) Not Reportable Baso % (Auto) Not Reportable Lymph # (Auto) Not Reportable [place] # (Auto) Not Reportable Baso # (Auto) Not Reportable Total Counted 100 Seg Neutrophils % 85.0 H Band Neutrophils % 4.0 Lymphocytes % (Manual) 10.0 L Monocytes % (Manual) 1.0 L Metamyelocytes % Neutrophils # (Manual) 13664 H Nucleated RBCs 2 H RBC Morphology See below Polychromasia 1+ H Anisocytosis 2+ H ABG pH 7.37 ABG pCO2 56.8 H ABG pO2 65 L ABG HCO3 33 H ABG Total CO2 34 H ABG O2 Saturation 91 L ABG Base Excess 7.0 H FiO2 25 Sodium 138 Potassium 4.4 Chloride 102 Carbon Dioxide 34 H BUN 47 H Creatinine 0.97 Estimated GFR 55.4 L BUN/Creatinine Ratio 48.5 H Glucose 93 Calcium 9.4 Phosphorus Magnesium 2.4 H Total Bilirubin 0.3 Conjugated Bilirubin 0.0 Unconjugated Bilirubin 0.1 AST 32 ALT 10 Alkaline Phosphatase 96 Troponin I Total Protein 6.0 L Albumin 2.7 L Globulin 3.3 Albumin/Globulin Ratio 0.8 L Blood Type Antibody Screen Crossmatch Assessment & Plan Assessment & Plan narrative: Leyda Nielsen is a 79-year-old female with a past medical history significant for severe obesity, paroxysmal atrial fibrillation, diastolic CHF, chronic hypoxemic and hypercarbic 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 She remains admitted for MSSA bacteremia, now s/p 3x I&D with wound vac placement 08.10.2019. 1. Acute MSSA bacteremia, right foot cellulitis, multiple right foot abscesses and possible right ankle septic joint, status post I&D, present on admission. Active. -Blood cultures preliminarily positive for staph in 4:4 bottles with sensitivities pending. Source felt to be her right lower extremity given the severity of her presentation. She has no evidence of pneumonia as chest x-ray unremarkable and no abdominal pain to suspect intra-abdominal source. -Echocardiogram did not demonstrate any hemodynamically significant valvular abnormalities or obvious vegetation. -ESR was markedly elevated at > 140. -CT of the right lower extremity with contrast demonstrated subcutaneous edema of the right lower leg, small peripherally enhancing fluid collection within the medial aspect of the hindfoot probably at represents fluid within the tibialis posterior tendon sheath, suggestive of tenosynovitis. However, a small abscess cannot be completely excluded. No fractures. Moderate degenerative changes of the knee are not adequately characterized. -Blood cultures, wound culture and joint aspirate positive for MSSA on 08/01 and 08/02. Blood cultures have no growth to date on 08/04 and 08/05. -Initial WBC 32.4 and trended down slowly now 14.0 Procalcitonin initially negative at 0.19 then peaked at 4.93 now < 0.5. -discontinued vancomycin on 08/08 due to no evidence of MRSA -cephazolin 2 g IV q.8 hours for MSSA and continue meropenem 1 g q.12 hours for possible mixed Gram-negative and anaerobes infection in addition to MSSA -Continue pain control with tramadol 100 mg 4 times daily as needed for tend-up-gguxuknk pain, oxycodone 2.5-5 mg every 4 hours as needed for moderate pain and morphine 1-2 mg IV every 6 hours only as needed for severe breakthrough pain. -Consulted orthopedic surgery, Dr. Rm and Dr. Martinez, who have performed I&D x3 and wound vac placement most recently 08/10/2019. Orthopedic surgery is very concerned for that the patient will require a [id number] amputation as her likelihood of healing is very low due to immunosuppression and severity of infection. -Ordered physical and occupational therapy evaluation and treatment, pending further orthopedic interventions. -Plan for wound vac change or Friday per ortho -NWB RLE 2. Acute on chronic normocytic anemia, present on admission. Active. -Secondary to sepsis and infection, hemodilution from IV fluid resuscitation acute blood loss from surgery, and now guiaic positive stools with likely GI bleeding. -Initial hemoglobin 8.8. Baseline hemoglobin 10-12. Patient has received a total of 4U PRBC. Patient has sanguinous drainage of right foot in wound VAC and hemoglobin appears stable and currently >7. Transfusion for hemoglobin < 7.0. -Continue to monitor H&H daily. -Hg today 7.7 from 6.8 yesterday after 2U PRBC -start protonix 80 mg x1 then 40 mg BID. Stop eliquis. -consider general surgery consultation for endoscopy. 3. Chronic hypoxemic and hypercarbic respiratory failure, present on admission. Acute portion resolved. -Chronic respiratory failure multifactorial secondary to obesity hypoventilation syndrome, JEANIE, and COPD. -Patient was severely hypercarbic after initial I&D likely due to hypoventilation versus over oxygenation and then has had intermittent hypoxemia on trilogy for unclear reasons and possibly due to malfunction. Continue BiPAP per RT and [employer] to evaluate Trilogy on Friday08/09/2019. -Does not represent COPD exacerbation. -Continue home Spiriva and Symbicort with hospital formulary medications. -O2 to maintain sat 88-90%. Continue trilogy or BiPAP at all times while sleeping or napping. Avoid excess O2. 4. Acute kidney injury on CKD stage 3, present on admission. Resolved. -Initially secondary to sepsis, infection and hypermetabolic state and now due to hypotension intra and postoperatively and NSAIDs. -Initial creatinine 1.39 and trended up to 1.82. Creatinine now 1.35. Baseline creatinine unknown but appears to be 1.3. -Continued IV fluids until adequately hydrated then discontinued. -Avoid nephrotoxic agents. -Continue to monitor renal function periodically. 5. Acute metabolic encephalopathy, present on admission, active. -Continue to treat infection as above. -CT brain without contrast did not demonstrate any acute intracranial abnormalities. -on 08/08 discontinued Seroquel 25 mg HS which was started earlier this admission for acute delirium. Patient had been doing much better mentally with resolution delirium. -Nursing staff to try to keep patient awake and stimulated throughout day and allow uninterrupted sleep with minimal interruptions at night. -decreased LOC 08/08 possibly due to high CO2 from too much oxygen, lower O2 to maintain sat 88-90% 6. Acute sepsis, present on admission. Resolved. -Patient presented with leukocytosis and tachycardia with evidence of organ dysfunction including metabolic encephalopathy and DOM with staph bacteremia from sore right lower extremity cellulitis, probable abscesses and possible septic joint. -Early goal directed therapy met including: IV antibiotics and IV fluid resuscitation. 7. Possible gout exacerbation with hyperuricemia, present on admission. Active. -Initial uric acid of 12.9. Repeat uric acid 11.1. Patient has history of gout but is not on uric acid lowering medication at home? -Unclear if this represents a gouty attack. Patient has had several courses of prednisone as an outpatient over last 2 weeks. Plan to avoid steroids at this time given staph bacteremia. -Will plan to start uric acid lowering medication prior to discharge. 8. Paroxysmal atrial fibrillation on Eliquis, chronic, present on admission. Stable. -Eliquis discontinued 08/10 for guaiac positive stools 9. Diastolic congestive heart failure, present on admission. Stable. -Does not represent CHF exacerbation. -Held metolazone and spironolactone. Previous diuresis have been ineffective at high doses and she he was to follow up with nephrology upon discharge in May which is unclear if pursued. -Continue strict I&Os and daily weights. -Repeated echocardiogram as above to assess for valvular vegetations. 10. Morbid obesity, chronic, present on admission. Stable. -BMI 46.2. -Patient has increased risk of complications due to her morbid obesity. Counse led patient on lifestyle modification including diet and exercise. -Consulted dietitian we appreciate her time and recommendations. 11. Psoriasis on Humira, chronic, present on admission. Stable. -Patient receives Humira injections every 2 weeks, with last dose approximately week and half prior to admission. She reports good response of plaque psoriasis to Humira. -Discontinued Humira and will have patient follow-up with her medical biller/coder. 12. GI bleeding - guaiac positive stools. Unclear if upper or lower but given significant stress of hospitalization likely upper. - continue protonix IV BID - continue to follow Hg - transfuse as noted above - consider general surgery consultaiton. Code status: Full Code, have consulted palliative care to re-address goals of care, hopefully discussion with patient and family today or possibly Friday. DVT prophylaxis: held pharmacologic prophylaxis for heme positive stool. Disposition: Patient remains hospitalized for severe right foot infection and will undoubtedly need correction facility for rehabilitation at time of discharge which is yet to be determined. Quality VTE Deep Vein Thrombosis/Pulmonary Embolism Present on Admission: No
[2019-08-11] MEDS: PANTOPRAZOLE 40 MG VIAL 80 MG IV (10:37)
--- NOTE | 2019-08-11 11:38 | PT.IIE ---
Current Diagnoses Cellulitis of right lower limb (08/01/19) Surgery Performed Operation Date: 08/05/19 13:00 Actual Procedures p Incision and Drainage Ankle(Right) - Anjel Rm MD Operation Date: 08/07/19 09:30 Actual Procedures p Incision and Debridement Foot, Arthrotomy(Right) - Anjel Rm MD Operation Date: 08/10/19 16:15 Actual Procedures p Incision and Drainage Foot w/ woundvac application(Right) - Annalisa Martinez MD Medical History (Last Reviewed 08/02/19 @ 08:33 by Anjel Rm MD) Atrial fibrillation (Acute) Congestive heart failure (Acute) COPD (chronic obstructive pulmonary disease) (Acute) Physical Therapy Inpatient Evaluation/Re-Eval M1 PT/OT-IP Prior Functional Status Start: 08/09/19 08:22 Freq: NEEDED Status: Active Protocol: Document 08/11/19 11:38 AB (Rec: 08/11/19 14:19 AB [id number]) Medical Review Prior Functional Status Medical History Reviewed Yes Communication able to make needs known Mobility and Gait pt stated that she is modified independent with all mobilities and ambulation without AD indoors but uses a 4WW for outdoor mobility Social History Household Members family Living Arrangements House Number of Floors (Floors) Two Floors Number of Stairs To Enter/Railing? pt has a chair lift at home Home Environment Standard Height Toilet,Walk in Shower Home Equipment Front Wheel Walker,Four Wheel Walker,Raised Toilet Seat w/ Armrests,Shower Seat with Backrest,Hand Held Shower,Grab Bars In Shower M2 PT-IP Current Condition Start: 08/09/19 08:22 Freq: NEEDED Status: Active Protocol: Document 08/11/19 11:38 AB (Rec: 08/11/19 14:19 AB [id number]) Physical Therapy Current Condition Current Condition Evaluation Date 08/11/19 Treatment Diagnosis GLF; R ankle abscess s/p I&D; difficulty in walking Onset Date 08/01/19 Precautions Other Precautions falls Weight Bearing Status Weight Bearing Status Non-Weight Bearing Allowed Weight Bearing Amount (enter % RLE NWB or #) (%) M3 PT-IP Subjective Start: 08/09/19 08:22 Freq: NEEDED Status: Active Protocol: Document 08/11/19 11:38 AB (Rec: 08/11/19 14:19 AB [id number]) Subjective Physical Therapy Visit Type Type Initial Evaluation Visit Start Time 11:38 Visit Stop Time 12:12 Total Visit Minutes 34 Number of WINDOW AIR CONDITIONER INSTALLER Visits 0 Physical Therapy Visit Comments Patient Comments pt agreeable to do PT Therapy Pain Assessment Pain When Pain Assessed During Mobility Pain Present Pain Present Pain Reported Location Lower Back Scale Used pain scale not stated Right Foot Scale Used pain scale not stated M4 PT-IP Mobility and Gait Start: 08/09/19 08:22 Freq: NEEDED Status: Active Protocol: Document 08/11/19 11:38 AB (Rec: 08/11/19 14:19 AB [id number]) PT-Transfer Assessment Sit to and From Stand Sit to and from Stand Maximum Assistance,Total Assistance,2 Person Assistance ,Use of Upper Extremities Equipment Transfer Assistive Device Gait Belt,Front Wheeled Walker Orthotic/Prosthetic Devices or Brace: No Comments Mobility Comments pt sitting on chair. nurse stated that they used the mechanical lift to transfer her. completed sit to stand from the chair x 3 attempts but pt unable to stand despite max A to total A x 3 provided . Pt is NWB on RLE and is not able to maintain weight bearing restriction despite assistance provided. pt's O2 sat also tends to go down to ~ 72-80% during activity but increases to ~ 88% with cues for deep breathing and with rest breaks. nurse assisted with pt's care and is aware of O2sat reading. positioned pt back on chair requiring max A x 2 for scooting. call light and table placed within reach. Gait Assessment Comments Gait Comments unable PT-Balance Assessment Standing Balance and Reactions Static Standing Balance Ability Poor Dynamic Standing Balance Ability Poor Device Used unable to stand upright M5 PT-IP Objective Assessments Start: 08/09/19 08:22 Freq: NEEDED Status: Active Protocol: Document 08/11/19 11:38 AB (Rec: 08/11/19 14:19 AB [id number]) Orientation Orientation/Cognition Level of Alertness Alert Orientation Name Safety Awareness Decreased Safety Awareness Gross Range of Motion Lower Extremity ROM Assessment Within Functional Limits Strength Lower Extremity Strength Assessment Bilaterally Impaired Hip 3+/5 Knee 3+/5 M6 PT-IP Treatment Start: 08/09/19 08:22 Freq: NEEDED Status: Active Protocol: Document 08/11/19 11:38 AB (Rec: 08/11/19 14:19 AB [id number]) Physical Therapy Treatment Education Education Provided Weight Bearing Status,Safety M7 PT-IP Assessment and Plan Start: 08/09/19 08:22 Freq: NEEDED Status: Active Protocol: Document 08/11/19 11:38 AB (Rec: 08/11/19 14:19 AB [id number]) PT Summary Assessment and Plan Potential Rehabilitation Potential Fair Status of Condition at Evaluation Evolving Summary Impairments Pain,ROM,Strength,Balance, Coordination,Sensation,Tone, Cognition,Bed Mobility, Transfers,Gait,Activity Tolerance Assessment Summary pt requiring total A with mobility and is unable to stand despite 3 person assist provided. Pt is RLE NWB at this time and is unable to maintain weight bearing restriction despite max A x 3 provided. unable to assess bed mobility today due pt sitting up on chair when PT came in and pt is unable to tolerate much activity due to pain and also decrease in O2 sat with activity. pt will require SNF rehab at this time . Goals Bed Mobility Goal Moderate Assistance Transfer Goal Moderate Assistance,Front Wheeled Walker Gait Goal Moderate Assistance,Front Wheel Walker Gait Distance 15 Days to Meet Goals 10 Frequency of Treatment Frequency Of Treatment Once a Day Treatment Plan Physical Therapy Treatment Plan Bed Mobility Training,Transfer Training,Gait Training, Therapeutic Exercise,Balance Retraining,Post Op Education, Discharge Planning,Hot or Cold Pack,Neuromuscular Re-ed, Coordination Retraining,Manual Therapy Other Recommendations and Next Treatment LE exercises, transfers Focus Recommendations To Nursing Amount of Assist Needed Mechanical Lift Discharge Recommendations PT Discharge Recommendations SNF Rehab Transportation Needs at Discharge Wheelchair/Cabulance
--- NOTE | 2019-08-11 12:24 | DIET.PN ---
Dietary Progress Note RD f/u for nursing reporting pt has low POs ~10% Pt has been on and off NPO status since admit for repeat I&D of R foot abscess. Pt originally referred to nutrition for dietary management of high PRO diet to support healing in this morbidly obese pt (BMI 46.2). Performed new nutrition visit to assess foods which support her disease state and healing and she is willing to eat. Pt no longer willing to drink Ensure Max, will try Ensure Enlive as ONS. Pt home diet is 2-3 meals/d c snacks, drinks wine nightly. Pt enjoys salads, soups, cheese c crackers, pb on bagels, and fresh fruit. Discussed dietary management of plaque psoriasis as pt is going off Cyndi to increase immune function- dairy, eggs, and etoh are common aggravating factors and consumed daily by pt. 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 Pts morbid obesity (225% ideal body weight) complicates hospital course r/t increased weight: reducing lung expansion c COPD, reduced baseline mobility c further reduction r/t extensive R foot wound, and PRO needs calculated based on body weight making PRO goal difficult to attain without RD management and good pt compliance. Pt willing to follow meal plan recc by RD while in hospital, stating I want to heal. Pt willing to drink ONS Joaquin to support wound healing and Ensure Enlive to support high PRO needs. Meals to contain soft pro, salads or soft vegetables and few other meal fillers to promote reduced inflammation, avoid weight gain as pt now c further reduced mobility. HT: 162.5cm WT: 128kg (up from 122kg on 08/06/19) BMI:48.5 Labs: renal labs BUN 47 H, Cr 0.97, eGFR 55.4 L MNA: 14 Brandon: 18 Nutrition Diagnosis: increased PRO needs r/t wound healing (right foot abscess involving the dorsum of the foot and the posterior tibial tendon sheath x2 wound vacs) aeb morbidly obese pt (BMI 46.2) c high baseline protein needs (100g/d), pt tires easily c chewing r/t o2 dependent COPD, pt immune compromised c Humira tx for plaque psoriasis. Interventions: 1. To support wound healing, PRO goal of 140g/d watching renal labs and adjusting PRO goal accordingly 2. To support CHF, sodium restricted diet (2g max/d). 3. To support weight maintenance/healthy weight loss and inflammatory state, meals to contain soft PRO, salads or soft cooked vegetables, and fruit, minimizing filler foods c goal of no more than 1600kcal per day. 4. Recc ONS Joaquin bid and Ensure Enlive bid providing 55% PRO needs in addition to meals. Diet Order: Low Na EER: 1600kcal (promote healthy wt/reduced mobility), 140g PRO (1.2g/kg wound healing) Monitoring/Evaluations:ONS tolerance, renal labs, consider ONS Ensure Enlive tid if pt not reaching PRO goal, continued ed on diet for wound healing and psoriasis.
--- NOTE | 2019-08-11 14:00 | OT.IP.EVAL ---
Current Diagnoses Cellulitis of right lower limb (08/01/19) Surgery Performed Operation Date: 08/05/19 13:00 Actual Procedures p Incision and Drainage Ankle(Right) - Anjel Rm MD Operation Date: 08/07/19 09:30 Actual Procedures p Incision and Debridement Foot, Arthrotomy(Right) - Anjel Rm MD Operation Date: 08/10/19 16:15 Actual Procedures p Incision and Drainage Foot w/ woundvac application(Right) - Annalisa Martinez MD Past Medical History (Last Reviewed 08/02/19 @ 08:33 by Anjel Rm MD) Atrial fibrillation (Acute) Congestive heart failure (Acute) COPD (chronic obstructive pulmonary disease) (Acute) Occupational Therapy Inpatient Evaluation/Re-Eval M1 PT/OT-IP Prior Functional Status Start: 08/11/19 16:26 Freq: NEEDED Status: Active Protocol: Document 08/11/19 14:00 [facility] (Rec: 08/11/19 16:42 [facility] [id number]) Medical Review Prior Functional Status Medical History Reviewed Yes Communication able to make needs known Mobility and Gait pt stated that she is modified independent with all mobilities and ambulation without AD indoors but uses a 4WW for outdoor mobility Activities of Daily Living and IADL's Pt states prior able to do all ADl'd and IADL's but has difficulty to make the bed. Social History Household Members family Living Arrangements House Number of Floors (Floors) Two Floors Number of Stairs To Enter/Railing? pt has a chair lift at home Home Environment Standard Height Toilet,Walk in Shower Home Equipment Front Wheel Walker,Four Wheel Walker,Raised Toilet Seat w/ Armrests,Shower Seat with Backrest,Hand Held Shower,Grab Bars In Shower M2 OT-IP Current Condition Start: 08/11/19 16:26 Freq: Status: Active Protocol: Document 08/11/19 14:00 [facility] (Rec: 08/11/19 16:42 [facility] [id number]) Occupational Therapy Current Condition Current Condition Evaluation Date 08/11/19 Treatment Diagnosis GLF,Right foot abscesses, s/p I and D Diagnosis Onset Date 08/01/19 Weight Bearing Status Weight Bearing Status Non-Weight Bearing Allowed Weight Bearing Amount (enter % NWB RLE or #) (%) M3 OT- IP Subjective and Pain Start: 08/11/19 16:26 Freq: Status: Active Protocol: Document 08/11/19 14:00 [facility] (Rec: 08/11/19 16:42 [facility] [id number]) OT- Subjective Occupational Therapy Visit Type Type Initial Evaluation Visit Start Time 14:00 Visit Stop Time 14:33 Total Visit Minutes 33 Occupational Therapy Visit Comments Patient Comments Pt very sleep and hard to arouse but agreeable to do OT eval. Patient/Caregiver Goals To eventually be able to go home. OT Pain Assessment Pain When Pain Assessed At Rest Pain Present Pain Present Pain Reported Location Right Foot Intensity 10 M4 OT- IP ADL's Start: 08/11/19 16:26 Freq: Status: Active Protocol: Document 08/11/19 14:00 [facility] (Rec: 08/11/19 16:42 [facility] [id number]) OT [id number] Comments OT Self-Feeding Comments Noted pt having particles of food left over in her mouth, nursing notified. OT ADL-Grooming General Evaluation Grooming Ability Standby Assistance Areas Needing Assistance Retrieving/Set-up of Grooming Items Comments OT Grooming Comments Set-up assist and at times due to drowsiness dropping her hands and needing increased time to put toothpaste on the toothbrush. OT ADL-Oral Care General Eval Oral Care Ability Independent OT ADL-Dressing General Eval Lower Body Dressing Ability Total Assistance Comments OT Dressing Comments Pt dependent for all LB dressing needs at this time. OT ADL-Toileting General Evaluation Toileting Ability Total Assistance M5 OT- IP IADL's Start: 08/11/19 16:26 Freq: Status: Active Protocol: Document 08/11/19 14:00 [facility] (Rec: 08/11/19 16:42 [facility] [id number]) OT-Instrumental Activities of Daily Living Home Safety Awareness Awareness of Need for Assistance at Home Good Awareness Ability to Problem Solve Emergency Able to Problem Solve Situations Home Safety Comments Pt able to answer all home safety questions with 100% accuracy. M6 OT- IP Functional Cognition Start: 08/11/19 16:26 Freq: Status: Active Protocol: Document 08/11/19 14:00 [facility] (Rec: 08/11/19 16:42 [facility] [id number]) Cognitive Factors Limiting Selfcare Function Cognitive Ability Level of Alertness Alert,Drowsy Patient Orientation Name,Year,Place,Situation Attention Span Ability Capable of Focused Attention, Unable to Sustain Attention Ability to Follow Commands Able to Follow One Step Commands Memory Description Short Term Impaired Problem Solving Ability Needs Assist to Identify Solutions Executive Function Ability Unable to Organize Plans, Unable to Remember Details Cognitive Tests SLUMS Pt very tired and falling asleep during SLUMS, may be beneficial to re-test when more awake. Pt scored 12/30 which implies cognitive deficits , did not know the day, unable to two digit math addition and subtraction problem, only able to recall 6 animals in one minute, not able to recall 4 digit number backwards, not able to recall any on the 5 objects after time passed, not able to draw the numbers on the clock correctly or hour hands, and able to answer 3/4 questions right after a paragraph read. Cognitive Comments Cognitive Assessment Comments Pt very drowsy and having difficulty to follow commands. M7 OT- IP Mobility and Balance Start: 08/11/19 16:26 Freq: Status: Active Protocol: Document 08/11/19 14:00 [facility] (Rec: 08/11/19 16:42 [facility] [id number]) OT-Transfer Assessment Comments Mobility Comments See PT eval for mobility. M8 OT- IP Objective Assessments Start: 08/11/19 16:26 Freq: Status: Active Protocol: Document 08/11/19 14:00 [facility] (Rec: 08/11/19 16:42 [facility] [id number]) OT Gross Range of Motion Upper Extremity Range of Motion Assessment Within Functional Limits OT Strength Comments Strength Comments BUE 4/5 to 4-/5 form proximal to distal M9 OT- IP Assessment and Plan Start: 08/11/19 16:26 Freq: Status: Active Protocol: Document 08/11/19 14:00 [facility] (Rec: 08/11/19 16:42 [facility] [id number]) OT Summary Assessment and Plan Potential Rehabilitation Potential Fair Analytic Complexity at Evaluation Low Summary OT Impairments Pain,Balance,Functional Cognition,Functional Mobility, Self-Feeding,Grooming,Dressing ,Toileting,Bathing,Toilet Transfers,Shower Transfers, Activity Tolerance Progress Towards Goals Slow Progress due to Pain,Slow Progress due to Medical Issues,Slow Progress due to Activity Tolerance,Slow Progress due to Cognition Assessment Summary Pt LOW complexity and main barriers are pain, not able to stand at this time due to RLE NWB and now needing extensive assist for all needs. Pt is far from [place] as prior was independent and living on her own. Pt will benefit from skilled rehab prior to going home. Goals Self-Feeding Goal Independent Grooming Goal Independent Dressing Goal Independent Toileting Goal Independent Bathing Goal Independent Toilet Transfer Goal Independent Shower Transfer Goal Independent Patient/Caregiver Education Goal Demonstrate Post-Op Precautions Days to Meet Goals 45 Frequency of Treatment Frequency Of Treatment Once a Day Treatment Plan OT Treatment Plan ADL Training,Functional Cognition Training,Functional Mobility,Patient/Family Education,Discharge Planning Other Treatment Recommendations and Next To go over LB dressing Treatment Focus equipment needs. Discharge Recommendations OT Discharge Recommendations SNF Rehab Home Equipment Needs defer to SNF Transportation Needs at Discharge Stretcher/Ambulance
--- NOTE | 2019-08-11 15:07 | PM.CN.PC.1 ---
History of Present Illness Consult details Date Patient Seen: 08/11/19 Time Patient Seen: 15:07 Chief complaint: GLF Reason for consult: Palliative medicine consultation Requesting provider: Norman Cardenas Narrative: Palliative medicine consultation received from Dr. Cardenas regarding this medically frail 79F Leyda Nielsen, for the purposes of a dialogue regarding Advance Care Planning. Reason for consultation: Patient sustained a GLF 08/01/2019 and was brought to the ED for evaluation of right ankle pain. Patient stated that she was also experiencing a new neurological symptom (essential tremor) that worsened with voluntary movement and told the ED provider that her leg gave out of her and her hands were shaking so much that she kept dropping her food. She was noted to have swelling of the right foot and ankle, tender to palpation. Patient believed she was experiencing a gout flare. Patient's right foot was significantly erethematous and swollen. Patient underwent an I&D of the right ankle while in the ED. It was noted in the op report that patient had to be aggressively suctioned for copious secretions noted while she was intubated She was admit to the medical floor for aggressive emperic antibiotic treatment of suspected gout and cellulitis. Patient has undergone 3 more I&D procedures since the time of her admission for the abscess of the right foot/ankle, and a wound vac has been placed for termite treater management of her open wound. Her mentation and cognition has waxed and waned, per her medical team, and has frequently experienced delirium and per her attending physician, has expressed an increasing weariness of being hospitalized. Patient is oxygen dependent at home and suffers from hypoxic and hypercarb respiratory failure due to COPD, chronic diastolic congestive heart failure and is oxygen dependent at home. 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 It was discovered today that her stools are guiac positive, and her chronic anticoagulation has been stopped (for paroxysmal atrial fibrillation). These underlying medical conditions and the patient's advanced age make her a poor candidate for survival of heroic measures, and survival to discharge to independence is unlikely. The medical team has had previous discussions with the patient about her FULL CODE status, as a part of her admission orders, and recommend that the patient consider these natural consequences of being subjected to ACLS. The medical team seeks clarification of the patient's goals of care, and seeks to establish a plan of care incorporating elements of palliative medicine. Recent Labs/Diagnostics 08/05/2019 MRI right foot IMPRESSION: Bilateral, circumferential subcutaneous cellulitis, nonspecific etiology. This predominantly involves the upper to mid calf on both sides. No abscess seen. No evidence of osteomyelitis. 08/04/2019 CXR IMPRESSION: Moderate cardiomegaly and interstitial prominence. Please correlate with patient presentation, physical examination findings, and laboratory values for congestive heart failure. Thoracolumbar vertebroplasty cement noted. 08/03/2019 CT of right foot IMPRESSION: 1. Subcutaneous edema of the right lower leg may be related to chronic venous stasis or cellulitis. Please correlate clinically. 2. Small peripherally enhancing fluid collection within the medial aspect of the hindfoot probably at represents fluid within the tibialis posterior tendon sheath, suggestive of tenosynovitis. However, a small abscess cannot be completely excluded. 3. No fractures. 4. Moderate degenerative changes of the knee are not adequately characterized. Past Medical History: Patient has a past medical history of COPD (oxygen-dependent with Trilogy Vent at home), chronic respiratory failure (hypercarbic and hypoxic), paroxysmal atrial fibrillation with chronic anticoagulation, chronic diastolic CHF, and plaque psoriasis. Recent admission to [facility] in May of this year, treated for an acute on chronic CHF exacerbation, renal US was revealing of possible medical renal disease. Of note, patient was on a prednisone taper since 07/22/2019 for a gout flare. Social History: Patient has four children, Abdulaziz, Karlo, Db, and Kelin. Abdulaziz and Db are present today for this consultation, and Karlo, who resides in [facility], is available by telephone. Patient is reluctant to continue with this palliative medicine consultation, stating, I feel that you are taking away my desire to live, and yo uare trying to show how inept I am, and that I am unable to make decisions for myself any longer. Because of the patient's profound general decline in clinical status over months, frailty evident by weakness, frequent falls, inability to provide of adequate self care, severe malnutrition (dramatic, unintentional weight loss, fatigue, lethargy) and given the possibility of an underlying, incurable medical illness, the medical team is of the belief that life expectancy is limited to potentially months, and has requested clarification of this woman's specific medical goals. Attending physician has requested palliative medicine to assist in furthering conversation with patient and family regarding the complex and sensitive medical issues of the perceived benefits/burdens of continued life prolonging treatments, realistic prognosis, perspectives on and dying, priority in clinical care and burden of physical, emotional and spiritual symptoms for patient and family. I have reviewed the medical record, radiographs, diagnostics, attempted to interview the patient (disoriented, no registration) and subsequently interviewed the patient [facility]. The following aspects are pertinent, current and remote medical history, social/emotional and family dynamics, current medications and effects, ROS, examination findings, prognosis, care planning, goal setting. Meds Home Medications and Allergies Home Medications Medication Instructions Recorded Confirmed Type Eliquis 5 mg PO BID 05/24/19 08/02/19 History Ray-3 1 cap PO DAILY 05/24/19 08/02/19 History Spiriva Respimat 2 inh INHALATION DAILY 05/24/19 08/02/19 History acetaminophen 650 mg PO Q6H PRN 05/24/19 08/02/19 History albuterol sulfate 1.25 mg INHALATION Q6H PRN 05/24/19 08/02/19 History albuterol sulfate 2 inh INHALATION Q4H PRN 05/24/19 08/02/19 History budesonide-formoterol [Symbicort] 1 inh INHALATION BID 05/24/19 08/02/19 History bupropion HCl 150 mg PO QPM 05/24/19 08/02/19 History calcitonin (salmon) 1 spray INTRANASAL (ALT) DAILY 05/24/19 08/02/19 History cholecalciferol (vitamin D3) 5,000 unit PO DAILY 05/24/19 08/02/19 History [Vitamin D3] ferrous sulfate 325 mg PO DAILY 05/24/19 08/02/19 History fluoxetine 20 mg PO DAILY 05/24/19 08/02/19 History latanoprost 1 drp OPHTHALMIC (EYE) BEDTIME 05/24/19 08/02/19 History levalbuterol HCl [Xopenex] 1.25 mg INHALATION Q4H 05/24/19 08/02/19 History magnesium oxide 400 mg PO DAILY 05/24/19 08/02/19 History melatonin 3 mg PO BEDTIME PRN 05/24/19 08/02/19 History metolazone 1.25 mg PO DAILY 05/24/19 08/02/19 History montelukast 10 mg PO QPM 05/24/19 08/02/19 History potassium chloride 40 meq PO DAILY 05/24/19 08/02/19 History prednisone See Rx Instructions .ROUTE .COMPLEX 05/24/19 08/02/19 History spironolactone 75 mg PO DAILY 05/24/19 08/02/19 History prednisone 40 mg PO DAILY #50 tab 07/30/19 08/02/19 Rx Allergies Allergy/AdvReac Type Severity Reaction Status Date / Time Sulfa (Sulfonamide Allergy Intermediate Verified 07/30/19 10:17 Antibiotics) Review of Systems Constitutional Constitutional: Reports as per HPI Exam Vital Signs (past 8 hours): - 08/11/19 07:25 08/11/19 08:31 08/11/19 12:36 Temperature 98.9 F Pulse Rate 91 H 92 H 87 Respiratory Rate 20 24 17 Blood Pressure 122/58 L 116/56 L Pulse Oximetry 95 93 96 08/11/19 13:36 Temperature Pulse Rate Respiratory Rate Blood Pressure Pulse Oximetry 96 Fraction of Inspired Oxygen 25 Oxygen Delivery Method Nasal Cannula Oxygen Flow Rate 1.5 Narrative Exam Narrative: Elderly woman with medically significant obesity sits up in a chair at bedside, with her edematous legs elevated. Wound vac applied to right ankle. She is noted to be on oxygen via nasal canula. She is suspicious of this author and comments that she is intermittently confused. Const General: comfortable, disheveled, frail appearing and ill appearing (chronically) Nutritional Appearance: obese morbidly obese (BMI 47.9) and edematous (UEs, LE's 2-3+) Orientation: alert, awake, oriented to person and oriented to place Psych Speech and Movement: agitated Mood: paranoid Affect: hostile and irritable affect Attitude: guarded and refuses to answer Thought Process: circumstantial, illogical, loose association and perseverating Thought Content: delusions, ideas of reference and obsessions Judgment: limited Objective Labs Result Diagrams: 08/12/19 05:34 08/12/19 05:34 Labs: Laboratory Results - last 24 hr 08/10/19 08/10/19 08/11/19 20:20 20:20 05:00 WBC 17.6 H 14.4 H RBC 2.48 L 2.38 L Hgb 8.0 L 7.7 L Hct 23.7 L 22.7 L MCV 95.5 D 95.3 MCH 32.3 32.2 MCHC 33.8 33.8 RDW 15.7 H 15.4 H Plt Count 353 347 Neut % (Auto) Not Reportable Not Reportable Lymph % (Auto) Not Reportable Not Reportable [place] % (Auto) Not Reportable Not Reportable Eos % (Auto) Not Reportable Not Reportable Baso % (Auto) Not Reportable Not Reportable Lymph # (Auto) Not Reportable Not Reportable [place] # (Auto) Not Reportable Not Reportable Baso # (Auto) Not Reportable Not Reportable Total Counted 100 100 Seg Neutrophils % 82.0 H 85.0 H Band Neutrophils % 6.0 4.0 Lymphocytes % (Manual) 4.0 L 10.0 L Monocytes % (Manual) 3.0 1.0 L Metamyelocytes % 5.0 H Neutrophils # (Manual) 77533 H 55855 H Nucleated RBCs 2 H RBC Morphology See below See below Polychromasia 1+ H 1+ H Anisocytosis 1+ H 2+ H ABG pH ABG pCO2 ABG pO2 ABG HCO3 ABG Total CO2 ABG O2 Saturation ABG Base Excess FiO2 Sodium 139 Potassium 4.7 Chloride 102 Carbon Dioxide 33 H BUN 54 H Creatinine 1.08 H Estimated GFR 48.9 L BUN/Creatinine Ratio 50.0 H Glucose 116 H Calcium 9.5 Phosphorus 3.6 Magnesium 2.6 H Total Bilirubin 0.3 Conjugated Bilirubin Unconjugated Bilirubin AST 41 H ALT 12 Alkaline Phosphatase 109 Troponin I 0.021 Total Protein 6.0 L Albumin 2.7 L Globulin 3.3 Albumin/Globulin Ratio 0.8 L 08/11/19 08/11/19 05:00 05:09 WBC RBC Hgb Hct MCV MCH MCHC RDW Plt Count Neut % (Auto) Lymph % (Auto) [place] % (Auto) Eos % (Auto) Baso % (Auto) Lymph # (Auto) [place] # (Auto) Baso # (Auto) Total Counted Seg Neutrophils % Band Neutrophils % Lymphocytes % (Manual) Monocytes % (Manual) Metamyelocytes % Neutrophils # (Manual) Nucleated RBCs RBC Morphology Polychromasia Anisocytosis ABG pH 7.37 ABG pCO2 56.8 H ABG pO2 65 L ABG HCO3 33 H ABG Total CO2 34 H ABG O2 Saturation 91 L ABG Base Excess 7.0 H FiO2 25 Sodium 138 Potassium 4.4 Chloride 102 Carbon Dioxide 34 H BUN 47 H Creatinine 0.97 Estimated GFR 55.4 L BUN/Creatinine Ratio 48.5 H Glucose 93 Calcium 9.4 Phosphorus Magnesium 2.4 H Total Bilirubin 0.3 Conjugated Bilirubin 0.0 Unconjugated Bilirubin 0.1 AST 32 ALT 10 Alkaline Phosphatase 96 Troponin I Total Protein 6.0 L Albumin 2.7 L Globulin 3.3 Albumin/Globulin Ratio 0.8 L Assessment & Recommendations A & R narrative: Discussion: Introductions made to patient and her daughter and son, who join the patient at bedside. Another son, Karlo, is currently on the telephone from another state. Patient is very reluctant to proceed with this consultation, seems paranoid, possibly delirious. Her family is accepting of thie termination of this interview, as patient seems increasingly paranoid about people other than herself making medical decisions for her. Discussed the outcome of this abbreviated consultation with social media campaign manager and her attending physician. We will be happy to readdress goals of care in the future if the patient and family are agreeable. IMPRESSION: - Abscess right ankle/foot - s/p I&D - Hypoxic and hypercarbic respiratory failure - Acute on chronic COPD exacerbation - Acute on chronic congestive heart failure - Trilogy dependent at home - Paroxysmal atrial fibrillation with chronic anticoagulation - GIB - Medically significant obesity - Delirium - Paranoia - Palliative medicine consultation Coding: To remain informed regarding current treatment opportunities, provider reviewed extensive additional documentation of multiple treatment providers/facilities which was utilized to update the management plan. Total time in review of additional medical information is 22 minutes, external to in person evaluation. Time in assessment and management of acute and chronic medical diagnoses, pertinent history to palliative medicine decision making, discussion and management of clinical findings enumerated above as well as fears regarding the transition to a more end of life plan and and dying is 17 minutes, more than half of which is necessary for education and counseling.
--- NOTE | 2019-08-11 15:28 | PC.NURSE ---
pt paranoid and uncooperative early this am - very demanding and thinking that you are all out to get me- reoriented to facts of care re: OR x 3 with wound care, ENDSTAGE COPD, AND GOALS OF CARE- SHE REPEATS RESCUE ME RESCUE RESCUE RESCUE FOR APPROX 12-15 MINUTES- FINALLY UNDERSTOOD SHE WAS AINFUL - MEDICATED THIS AM WITH TRAMADOL AND 2MG IV MS- WITH MUCH IMPROVEMENT, FULLY BATHED AND USED MECH LIFT TO GET TO CHAIR WHERE SHE HAS BEEN MOST OF DAY SHIFT ( 10AM-1530) PT/OT/DIETARY CONSULTS THIS DATE. PALLIATIVE CARE MTG AT PRESENT
[2019-08-11] MEDS: MONTELUKAST 10 MG TABLET PO (18:54)
[2019-08-11] MEDS: PANTOPRAZOLE 40 MG VIAL IV (20:35)
[2019-08-11] MEDS: LATANOPROST 0.005% OPHTH 2.5 ML 1 DROPS EYE-BOTH (20:45)
--- NOTE | 2019-08-11 22:49 | RT ---
Home trilogy machine doesn't have a set RR or even a apnea alarm. Patient was breathing around 10 and her VT and VE was super low and I didn't feel comfortable with those issues. Placed her back onto our BIPAP and RN notified.
--- NOTE | 2019-08-11 23:32 | PC.NURSE ---
Pt is placed on the hospital Bipap, due to the RT stating that the pt home trilogy machine not working properly. Please see RT notes for more clarification. Pt has been telling staff all shift that she wants staff to help her , otherwise pt has been compliant and calm for the shift. Bed is low and locked,call light within reach, will continue to monitor.
[2019-08-12] VITALS (12 sets, daily range): BP systolic 94–113; BP diastolic 50–66; PULSE 63–96; RESP 17–28; TEMP 36.6–37.3; O2SAT 92–96
[2019-08-12] MEDS: MORPHINE 2 MG/ML INJ IV (00:58)
[2019-08-12] MEDS: CEFAZOLIN 2 GM/100 ML FROZ.PIGGY IV ×3 (00:59→17:15)
[2019-08-12] MEDS: TRAMADOL 50 MG TABLET 100 MG PO ×3 (04:37→20:49)
[2019-08-12 05:57] LABS: Add Manual Diff / Slide Review NO; Alanine Aminotransferase 8 IU/L (<35); Albumin 2.6 g/dL (3.5-5.0); Albumin Globulin Ratio 0.8 (1.0-2.8); Alkaline Phosphatase 183 U/L (38-126); Aspartate Aminotransferase 39 IU/L (14-36); BUN Creatinine Ratio 47.3 (6-22); Basophils Absolute Auto 0 /uL (0-100); Basophils Percent Auto 0.2 % (0-2); Bilirubin Total 0.3 mg/dL (0.2-1.3); Bilirubin Unconjugated 0.2 mg/dL (0.0-1.1); Blood Urea Nitrogen 35 mg/dL (7-17); Calcium 9.4 mg/dL (8.4-10.2); Carbon Dioxide 34 mmol/L (22-32); Chloride 97 mmol/L (98-107); Eosinophils Absolute Auto 200 /uL (0-450); Eosinophils Percent Auto 1.8 % (2-4); Estimated Glomerular Filt Rate > 60.0 mL/min (>60); Globulin 3.4 g/dL (1.7-4.1); Glucose 91 mg/dL (80-110); HEMOLYSIS < 15 (0-50); Hemoglobin 7.5 g/dL (12.0-16.0); Lymphocytes Absolute Auto 700 /uL (1100-4500); Lymphocytes Percent Auto 6.2 % (25-40); Magnesium 2.3 mg/dL (1.6-2.3); Mean Corpuscular HGB Conc 33.9 % (30-36); Mean Corpuscular Hemoglobin 32.5 PG (26-34); Mean Corpuscular Volume 95.9 fL (80-100); Monocytes Absolute Auto 700 /uL (0-900); Monocytes Percent Auto 6.1 % (3-14); Neutrophils Absolute Auto 9900 /uL (1500-7000); Neutrophils Percent Auto 85.7 % (50-75); Platelet Count 335 X10^3/uL (150-400); Potassium 4.2 mmol/L (3.4-5.1); Red Blood Cell Count 2.32 X10^6/uL (4.0-5.2); Red Cell Distribution Width 15.4 % (11.6-14.8); Sodium 136 mmol/L (137-145); White Blood Cell Count 11.5 X10^3/uL (4.5-11.0)
[2019-08-12 06:10] LABS: Hematocrit 22.2 % (36-46)
--- NOTE | 2019-08-12 06:18 | RT ---
Ronald order a seris of gas for 0500. I didn't do it this morning she has been refusing to wear the V60 and was on for 30 minutes. We will chech in the A.M if he still wants one at like 0800 instead. Passing it onto Shaka the RT on for today.
--- NOTE | 2019-08-12 06:21 | PC.NURSE ---
Pt alert and oriented x3 throughout the night. Complained at 10/10 pain at 0000 resolved with morphine and tramadol. Pt reports no pain at this time. Pt on bipap intermittently throughout the night, pt requested off bipap several times and switched to NC 1.5 L. O2 sats running at 95% and above. Turning pt q 2 hours. [place] cath intact draining yellow urine. Pt has no complaints at this time
[2019-08-12] MEDS: OXYCODONE IR 5 MG TABLET 2.5 MG PO (08:01)
[2019-08-12] MEDS: ACETAMINOPHEN 325 MG TABLET 975 MG PO ×3 (08:01→20:49)
[2019-08-12] MEDS: FLUoxetine 20 MG CAPSULE PO (08:02)
[2019-08-12] MEDS: DOCUSATE 100 MG CAPSULE PO ×2 (08:02→20:50)
[2019-08-12] MEDS: polyethylene glycoL 3350 17 GM POWD.PACK PO (08:03)
[2019-08-12] MEDS: PANTOPRAZOLE 40 MG VIAL IV ×2 (08:03→20:50)
[2019-08-12] MEDS: buPROPion XL 150 MG TAB PO (08:03)
[2019-08-12] MEDS: MEROPENEM 1 GM/50 ML PIGGYBACK IV ×2 (08:03→19:19)
[2019-08-12] MEDS: BUDESONIDE FORMOTEROL 1 EACH INH ×2 (09:10→21:41)
[2019-08-12] MEDS: TIOTROPIUM BROMIDE 2 EACH INH (09:10)
[2019-08-12 09:50] LABS: pH ABG 7.37 (7.35-7.45)
[2019-08-12 09:52] LABS: HCO3 ABG 36 mmol/L (22-26); PCO2 ABG 62.7 mmHg (35-45); PO2 ABG 67 mmHg (80-100); TCO2 ABG 38 mmol/L (21-31)
[2019-08-12 09:53] LABS: Fractionated Inspired Oxygen 26; Oxygen Saturation ABG 92 % (95-100)
--- NOTE | 2019-08-12 10:54 | PT.IPTN ---
Current Diagnoses Cellulitis of right lower limb (08/01/19) Surgery Performed Operation Date: 08/05/19 13:00 Actual Procedures p Incision and Drainage Ankle(Right) - Anjel Rm MD Operation Date: 08/07/19 09:30 Actual Procedures p Incision and Debridement Foot, Arthrotomy(Right) - Anjel Rm MD Operation Date: 08/10/19 16:15 Actual Procedures p Incision and Drainage Foot w/ woundvac application(Right) - Annalisa Martinez MD Physical Therapy Treatment Note M2 PT-IP Current Condition Start: 08/09/19 08:22 Freq: NEEDED Status: Active Protocol: Document 08/11/19 11:38 AB (Rec: 08/11/19 14:19 AB [id number]) Physical Therapy Current Condition Current Condition Evaluation Date 08/11/19 Treatment Diagnosis GLF; R ankle abscess s/p I&D; difficulty in walking Onset Date 08/01/19 Precautions Other Precautions falls Weight Bearing Status Weight Bearing Status Non-Weight Bearing Allowed Weight Bearing Amount (enter % RLE NWB or #) (%) M3 PT-IP Subjective Start: 08/09/19 08:22 Freq: NEEDED Status: Active Protocol: Document 08/12/19 10:54 AB (Rec: 08/12/19 12:35 AB [id number]) Subjective Physical Therapy Visit Type Type Treatment Note Visit Start Time 10:54 Visit Stop Time 11:25 Total Visit Minutes 31 Number of RETAIL SALES ASSISTANT Visits 0 Physical Therapy Visit Comments Patient Comments pt agreeable to do PT Therapy Pain Assessment Pain When Pain Assessed During Mobility Location Right Foot Intensity 10 Scale Used Numeric (1 - 10) Pain Management Techniques Modification of Treatment,Re- positioning,Timing of Activity with Medications M4 PT-IP Mobility and Gait Start: 08/09/19 08:22 Freq: NEEDED Status: Active Protocol: Document 08/12/19 10:54 AB (Rec: 08/12/19 12:35 AB [id number]) PT-Bed Mobility Assessment Rolling Type of Rolling Bilateral Level of Assist Maximal Assistance,2 Person Assistance Supine to Sit Supine to Sit Maximum Assistance,1 Person Assistance,2 Person Assistance ,Head of Bed Elevated Sit to Supine Sit to Supine Maximum Assistance,Total Assistance,2 Person Assistance Scooting Scooting to Edge of Bed Dependent Scooting Up and Down in Bed Dependent PT-Transfer Assessment Comments Mobility Comments completed supine to sit with HOB elevated max A x 1-2 and max cues. pt was able to sit on EOB min A to maintain sitting balance and cues. pt tolerated ~ 5 min sitting on EOB. able to move BLE up/down while sitting. c/o back pain during sitting and requested to go back to bed. required max A x 2 to total Ax 2 for sit to supine. required 2 person max A to total A for rolling and mobility in bed for bed positionining. call light and table placed within reach. M5 PT-IP Objective Assessments Start: 08/09/19 08:22 Freq: NEEDED Status: Active Protocol: Document 08/11/19 11:38 AB (Rec: 08/11/19 14:19 AB [id number]) Orientation Orientation/Cognition Level of Alertness Alert Orientation Name Safety Awareness Decreased Safety Awareness Gross Range of Motion Lower Extremity ROM Assessment Within Functional Limits Strength Lower Extremity Strength Assessment Bilaterally Impaired Hip 3+/5 Knee 3+/5 M6 PT-IP Treatment Start: 08/09/19 08:22 Freq: NEEDED Status: Active Protocol: Document 08/12/19 10:54 AB (Rec: 08/12/19 12:35 AB [id number]) Physical Therapy Treatment Education Education Provided Safety M7 PT-IP Assessment and Plan Start: 08/09/19 08:22 Freq: NEEDED Status: Active Protocol: Document 08/12/19 10:54 AB (Rec: 08/12/19 12:35 AB [id number]) PT Summary Assessment and Plan Potential Rehabilitation Potential Fair Summary Impairments Pain,ROM,Strength,Balance, Coordination,Sensation, Cognition,Bed Mobility, Transfers,Gait,Activity Tolerance Progress Towards Goals Slow Progress due to Pain,Slow Progress due to Medical Issues,Slow Progress due to Activity Tolerance Assessment Summary pt requiring 2 person max A to total A with all tasks and unable to tolerate much activity due to pain and generalized weakness. pt will require SNF rehab to improve strenght and mobility. Goals Bed Mobility Goal Moderate Assistance Transfer Goal Moderate Assistance,Front Wheeled Walker Gait Goal Moderate Assistance,Front Wheel Walker Gait Distance 15 Days to Meet Goals 10 Frequency of Treatment Frequency Of Treatment Once a Day Treatment Plan Physical Therapy Treatment Plan Bed Mobility Training,Transfer Training,Gait Training, Therapeutic Exercise,Balance Retraining,Post Op Education, Discharge Planning,Hot or Cold Pack,Neuromuscular Re-ed, Coordination Retraining,Manual Therapy Other Recommendations and Next Treatment LE exercises, transfers Focus Recommendations To Nursing Amount of Assist Needed Mechanical Lift Discharge Recommendations PT Discharge Recommendations SNF Rehab Transportation Needs at Discharge Wheelchair/Cabulance
--- NOTE | 2019-08-12 10:59 | PM.PN.1 ---
Subjective Subjective Date Patient Seen: 08/12/19 Time Patient Seen: 07:30 Interval history: Patient is comfortable overnight. States that the foot is still painful, although improved over the last 48 hours. WBC continues to downtrend. Transfused yesterday. Exam Vital Signs (past 8 hours): - 08/12/19 03:30 08/12/19 06:44 08/12/19 07:31 Temperature 97.9 F Pulse Rate 88 Respiratory Rate 19 Blood Pressure 94/50 L 101/54 L 101/54 L Pulse Oximetry 94 08/12/19 08:00 08/12/19 09:17 Temperature 99.2 F Pulse Rate 89 96 H Respiratory Rate 20 20 Blood Pressure 111/55 L Pulse Oximetry 96 96 Fraction of Inspired Oxygen 0.25 Oxygen Delivery Method Nasal Cannula Oxygen Flow Rate 1.5 Narrative Exam Narrative: Able to wiggle big toe, sensation intact to toes, wound vac holding suction. Decreased TTP. Decreased pain with passive flex/ex of the ankle Objective Labs Result Diagrams: 08/12/19 05:34 08/12/19 05:34 Labs: Laboratory Results - last 24 hr 08/12/19 08/12/19 08/12/19 05:34 05:34 09:34 WBC 11.5 H RBC 2.32 L Hgb 7.5 L Hct 22.2 L MCV 95.9 MCH 32.5 MCHC 33.9 RDW 15.4 H Plt Count 335 Neut % (Auto) 85.7 H Lymph % (Auto) 6.2 L [place] % (Auto) 6.1 Eos % (Auto) 1.8 L Baso % (Auto) 0.2 Neut # (Auto) 9900 H Lymph # (Auto) 700 L [place] # (Auto) 700 Eos # (Auto) 200 Baso # (Auto) 0 ABG pH 7.37 ABG pCO2 62.7 H* ABG pO2 67 L ABG HCO3 36 H ABG Total CO2 38 H ABG O2 Saturation 92 L ABG Base Excess 11.0 H FiO2 26 Sodium 136 L Potassium 4.2 Chloride 97 L Carbon Dioxide 34 H BUN 35 H Creatinine 0.74 Estimated GFR > 60.0 BUN/Creatinine Ratio 47.3 H Glucose 91 Calcium 9.4 Magnesium 2.3 Total Bilirubin 0.3 Conjugated Bilirubin 0.0 Unconjugated Bilirubin 0.2 AST 39 H ALT 8 Alkaline Phosphatase 183 H D Total Protein 6.0 L Albumin 2.6 L Globulin 3.4 Albumin/Globulin Ratio 0.8 L Assessment & Plan Assessment & Plan narrative: Patient is a 79 yo F now s/p 3x I&D and placement of wound vac yesterday evening. 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 She has a history of gout and was treated with prednisone for several weeks. She subsequently had worsening symptoms and presented to the ED. She remains admitted for MSSA bacteremia, and multiple I&Ds with orthopedic surgery of her RLE Foot abscess/septic ankle - continue abx - wound vac in place, plan for change on floors this afternoon - will continue to monitory closely - NWB RLE Time Spent With Patient Time with patient: less than 15 minutes Quality VTE Deep Vein Thrombosis/Pulmonary Embolism Present on Admission: No
--- NOTE | 2019-08-12 12:10 | OT.IP.TRT ---
Current Diagnoses Cellulitis of right lower limb (08/01/19) Surgery Performed Operation Date: 08/05/19 13:00 Actual Procedures p Incision and Drainage Ankle(Right) - Anjel Rm MD Operation Date: 08/07/19 09:30 Actual Procedures p Incision and Debridement Foot, Arthrotomy(Right) - Anjel Rm MD Operation Date: 08/10/19 16:15 Actual Procedures p Incision and Drainage Foot w/ woundvac application(Right) - Annalisa Martinez MD Occupational Therapy Treatment Note M2 OT-IP Current Condition Start: 08/11/19 16:26 Freq: Status: Active Protocol: Document 08/11/19 14:00 [facility] (Rec: 08/11/19 16:42 [facility] [id number]) Occupational Therapy Current Condition Current Condition Evaluation Date 08/11/19 Treatment Diagnosis GLF,Right foot abscesses, s/p I and D Diagnosis Onset Date 08/01/19 Weight Bearing Status Weight Bearing Status Non-Weight Bearing Allowed Weight Bearing Amount (enter % NWB RLE or #) (%) M3 OT- IP Subjective and Pain Start: 08/11/19 16:26 Freq: Status: Active Protocol: Document 08/12/19 13:06 [facility] (Rec: 08/12/19 13:18 [facility] [id number]) OT- Subjective Occupational Therapy Visit Type Type Treatment Note Visit Start Time 11:50 Visit Stop Time 12:10 Total Visit Minutes 20 Occupational Therapy Visit Comments Patient Comments Pt states sleepy but feeling more alert today. Patient/Caregiver Goals To eventually be able to go home. OT Pain Assessment Pain When Pain Assessed At Rest Pain Present Pain Present Pain Reported M4 OT- IP ADL's Start: 08/11/19 16:26 Freq: Status: Active Protocol: Document 08/12/19 13:06 [facility] (Rec: 08/12/19 13:18 [facility] [id number]) OT [id number] Comments OT Self-Feeding Comments Pt states still having difficulty at times to hold onto utensils and called the kitchen to request larger handled light weight utensils to increased ease to eat. Encourage pt to do UE AROM while in bed. M5 OT- IP IADL's Start: 08/11/19 16:26 Freq: Status: Active Protocol: Document 08/11/19 14:00 [facility] (Rec: 08/11/19 16:42 [facility] [id number]) OT-Instrumental Activities of Daily Living Home Safety Awareness Awareness of Need for Assistance at Home Good Awareness Ability to Problem Solve Emergency Able to Problem Solve Situations Home Safety Comments Pt able to answer all home safety questions with 100% accuracy. M6 OT- IP Functional Cognition Start: 08/11/19 16:26 Freq: Status: Active Protocol: Document 08/12/19 13:06 [facility] (Rec: 08/12/19 13:18 [facility] [id number]) Cognitive Factors Limiting Selfcare Function Cognitive Ability Level of Alertness Alert Patient Orientation Name,Year,Place,Situation Attention Span Ability Capable of Focused Attention, Unable to Sustain Attention Ability to Follow Commands Able to Follow One Step Commands Memory Description Short Term Impaired Problem Solving Ability Needs Assist to Identify Solutions Executive Function Ability Unable to Organize Plans, Unable to Remember Details Cognitive Tests SLUMS Pt retest for SLUMS as pt more alert score improved to 16/30 , not able to do math calculations, able to recall 2 /5 objects, able to state 12 animals in one minute, not able to draw the clock hands after time given, not able to states 4 digit number backwards, and able to get 2/4 answers correctly after a paragraph. Cognitive Comments Cognitive Assessment Comments Pt more alert and improved SLUM score from 12/30 to 16/30 however still implies cognitive deficits. Pt able to answer all home safety questions with good accuracy. OT- Vision and Hearing OT- Vision Assessment Vision Assessment Comments Pt having difficulty with depth perception and at times states seeing double. M7 OT- IP Mobility and Balance Start: 08/11/19 16:26 Freq: Status: Active Protocol: Document 08/11/19 14:00 [facility] (Rec: 08/11/19 16:42 [facility] [id number]) OT-Transfer Assessment Comments Mobility Comments See PT eval for mobility. M8 OT- IP Objective Assessments Start: 08/11/19 16:26 Freq: Status: Active Protocol: Document 08/11/19 14:00 [facility] (Rec: 08/11/19 16:42 [facility] [id number]) OT Gross Range of Motion Upper Extremity Range of Motion Assessment Within Functional Limits OT Strength Comments Strength Comments BUE 4/5 M9 OT- IP Assessment and Plan Start: 08/11/19 16:26 Freq: Status: Active Protocol: Document 08/12/19 13:06 [facility] (Rec: 08/12/19 13:18 [facility] [id number]) OT Summary Assessment and Plan Potential Rehabilitation Potential Fair Analytic Complexity at Evaluation Low Summary OT Impairments Pain,Balance,Functional Cognition,Functional Mobility, Self-Feeding,Grooming,Dressing ,Toileting,Bathing,Toilet Transfers,Shower Transfers, Activity Tolerance Progress Towards Goals Slow Progress due to Pain,Slow Progress due to Medical Issues,Slow Progress due to Activity Tolerance,Slow Progress due to Cognition Assessment Summary Pt more alert today. Pt still needing extensive assist to get to the edge of the bed MAX X 2 per PT treatment today and will benefit from skilled rehab as prior independent with all needs. Goals Self-Feeding Goal Independent Grooming Goal Independent Dressing Goal Independent Toileting Goal Independent Bathing Goal Independent Toilet Transfer Goal Independent Shower Transfer Goal Independent Patient/Caregiver Education Goal Demonstrate Post-Op Precautions Days to Meet Goals 44 Frequency of Treatment Frequency Of Treatment Once a Day Treatment Plan OT Treatment Plan ADL Training,Functional Cognition Training,Functional Mobility,Patient/Family Education,Discharge Planning Other Treatment Recommendations and Next To go over LB dressing Treatment Focus equipment needs. Assess self - feeding. Discharge Recommendations OT Discharge Recommendations SNF Rehab Home Equipment Needs defer to SNF Transportation Needs at Discharge Stretcher/Ambulance
--- NOTE | 2019-08-12 13:28 | CM.DPNOTE ---
DCP Cont Patient discussed in multidisciplinary rounds this morning. Patient remains full code and is seeking full aggressive and life sustaining measures for her POC, patient may be a good candidate for [facility] ? Dr Cardenas reviewed option w/patient and patient agreeable to [facility]. Requested that coin machine assembler Melody fax referral to [facility] and Melody kindly agreed. Melody has also LM for [facility] admissions liaison Mary Anne Awaiting contact from [facility] to discuss referral. Medical management continues. Patient's cognition does wax and wane but patient still considered A+O w/ decisional capacity. JACKELIN Cabello
--- NOTE | 2019-08-12 14:24 | PC.NURSE ---
Dr. Rm at bedside to do wound vac dsg change. Pt was premedicated with tylenol and tramadol and was allowed to sleep up until MD arrived to bedside.
--- NOTE | 2019-08-12 16:37 | P.PN_ITS ---
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 She remains admitted for MSSA bacteremia, and is now s/p 3x I&D with wound vac placement yesterday of her RLE. She reports her right leg pain is controlled, and complains more back pain. Her mental status is improved today. Yesterday attempted palliative care consultation but patient became slightly paranoid and interpreted the encounter as that her medical providers were trying to kill her. She does not want to speak with palliative care again. She also endorses a desire to moved to [place] after rehab to be closer to her son and [id number]. Her hemoglobin dropped very slightly today to 7.5. PCO2 rem ained fairly stable at 62.7. She had a wound VAC change with orthopedics today at bedside. Exam Vital Signs (past 8 hours): - 08/12/19 09:17 08/12/19 12:00 08/12/19 16:30 Temperature 98.0 F 98.5 F Pulse Rate 96 H 94 H 96 H Respiratory Rate 20 24 20 Blood Pressure 113/66 112/57 L Pulse Oximetry 96 96 93 Fraction of Inspired Oxygen 0.25 Oxygen Delivery Method Nasal Cannula Oxygen Flow Rate 1 Narrative Exam Narrative: GENERAL APPEARANCE: Ill-appearing, obese female, in no acute distress SKIN: Inspection of the skin reveals no rashes, ulcerations or petechiae. HEENT: Normocephalic atraumatic, extraocular muscles are intact, oropharynx is clear and mucous membranes are moist, neck is supple without adenopathy NECK: Supple and symmetric. There was no thyroid enlargement, and no tenderness, or masses were felt. CHEST: Normal AP diameter and normal contour without any kyphoscoliosis. LUNGS: Auscultation of the lungs revealed no wheezes, rhonchi, or rales. CARDIOVASCULAR: There was a regular rate and rhythm without any murmurs, gallops, rubs. Peripheral pulses were 2+ and symmetric. ABDOMEN: Soft and nontender with normal bowel sounds. No ascites was noted. MUSCULOSKELETAL: Improved R foot tenderness, now minimal. Wound vac in place with clear dressings and serosanguinous drainage. EXTREMITIES: No cyanosis, clubbing. Right lower extremity dressings are clear dry. Upper extremity and lower extremity non-pitting edema bilaterally. NEUROLOGIC: Alert and oriented x3, able to move her right toes Objective Labs Result Diagrams: 08/12/19 05:34 08/12/19 05:34 Labs: Laboratory Results - last 24 hr 08/12/19 08/12/19 08/12/19 05:34 05:34 09:34 WBC 11.5 H RBC 2.32 L Hgb 7.5 L Hct 22.2 L MCV 95.9 MCH 32.5 MCHC 33.9 RDW 15.4 H Plt Count 335 Neut % (Auto) 85.7 H Lymph % (Auto) 6.2 L [place] % (Auto) 6.1 Eos % (Auto) 1.8 L Baso % (Auto) 0.2 Neut # (Auto) 9900 H Lymph # (Auto) 700 L [place] # (Auto) 700 Eos # (Auto) 200 Baso # (Auto) 0 ABG pH 7.37 ABG pCO2 62.7 H* ABG pO2 67 L ABG HCO3 36 H ABG Total CO2 38 H ABG O2 Saturation 92 L ABG Base Excess 11.0 H FiO2 26 Sodium 136 L Potassium 4.2 Chloride 97 L Carbon Dioxide 34 H BUN 35 H Creatinine 0.74 Estimated GFR > 60.0 BUN/Creatinine Ratio 47.3 H Glucose 91 Calcium 9.4 Magnesium 2.3 Total Bilirubin 0.3 Conjugated Bilirubin 0.0 Unconjugated Bilirubin 0.2 AST 39 H ALT 8 Alkaline Phosphatase 183 H D Total Protein 6.0 L Albumin 2.6 L Globulin 3.4 Albumin/Globulin Ratio 0.8 L Assessment & Plan Assessment & Plan narrative: Leyda Nielsen is a 79-year-old female with a past medical history significant for severe obesity, paroxysmal atrial fibrillation, diastolic CHF, chronic hypoxemic and hypercarbic 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 She remains admitted for MSSA bacteremia, now s/p 3x I&D with wound vac placement and dressing change again today at bedside. 1. Acute MSSA bacteremia, right foot cellulitis, multiple right foot abscesses and possible right ankle septic joint, status post I&D, present on admission. Active. -Blood cultures preliminarily positive for staph in 4:4 bottles with sensitivities pending. Source felt to be her right lower extremity given the severity of her presentation. She has no evidence of pneumonia as chest x-ray unremarkable and no abdominal pain to suspect intra-abdominal source. -Echocardiogram did not demonstrate any hemodynamically significant valvular abnormalities or obvious vegetation. -ESR was markedly elevated at > 140. -CT of the right lower extremity with contrast demonstrated subcutaneous edema of the right lower leg, small peripherally enhancing fluid collection within the medial aspect of the hindfoot probably at represents fluid within the tibialis posterior tendon sheath, suggestive of tenosynovitis. However, a small abscess cannot be completely excluded. No fractures. Moderate degenerative changes of the knee are not adequately characterized. -Blood cultures, wound culture and joint aspirate positive for MSSA on 08/01 and 08/02. Blood cultures have no growth to date on 08/04 and 08/05. -Initial WBC 32.4 and trended down slowly now 14.0 Procalcitonin initially negative at 0.19 then peaked at 4.93 now < 0.5. -discontinued vancomycin on 08/08 due to no evidence of MRSA -cephazolin 2 g IV q.8 hours for MSSA and continue meropenem 1 g q.12 hours for possible mixed Gram-negative and anaerobes infection in addition to MSSA -Continue pain control with tramadol 100 mg 4 times daily as needed for [id number] pain, oxycodone 2.5-5 mg every 4 hours as needed for moderate pain and morphine 1-2 mg IV every 6 hours only as needed for severe breakthrough pain. -Consulted orthopedic surgery, Dr. Rm and Dr. Martinez, who have performed I&D x3 and wound vac placement. Most recent dressing change today. Orthopedic surgery is very concerned for that the patient will require a [id number] amputation as her likelihood of healing is very low due to immunosuppression and severity of infection. They would like to further monitor her for 1 or 2 more dressing changes for continued improvement before possible discharge. Next planned dressing changes is in approximately 2-3 days. -Ordered physical and occupational therapy evaluation and treatment. -NWB RLE 2. Acute on chronic normocytic anemia, present on admission. Active. -Secondary to sepsis and infection, hemodilution from IV fluid resuscitation acute blood loss from surgery, and now guiaic positive stools with likely GI bleeding. -Initial hemoglobin 8.8. Baseline hemoglobin 10-12. Patient has received a total of 4U PRBC. Patient has sanguinous drainage of right foot in wound VAC and hemoglobin appears stable and currently >7. Transfusion for hemoglobin < 7.0. -Continue to monitor H&H daily. -Hg today 7.5 from 7.7 yesterday. -start protonix 80 mg x1 then 40 mg BID. Stopped eliquis. -consider general surgery consultation for endoscopy if hemoglobin further declines tomorrow. 3. Chronic hypoxemic and hypercarbic respiratory failure, present on admission. Acute portion resolved. -Chronic respiratory failure multifactorial secondary to obesity hypoventilation syndrome, JEANIE, and COPD. -Patient was severely hypercarbic after initial I&D likely due to hypoventilation versus over oxygenation and then has had intermittent hypoxemia on trilogy for unclear reasons and possibly due to malfunction. Continue BiPAP per RT and Farrukh to evaluate Trilogy on Friday08/09/2019. -Does not represent COPD exacerbation. -Continue home Spiriva and Symbicort with hospital formulary medications. -O2 to maintain sat 88-90%. Continue trilogy or BiPAP at all times while sleeping or napping. Avoid excess O2. 4. Acute kidney injury on CKD stage 3, present on admission. Resolved. -Initially secondary to sepsis, infection and hypermetabolic state and now due to hypotension intra and postoperatively and NSAIDs. -Initial creatinine 1.39 and trended up to 1.82. Creatinine now down to 0.74. Baseline creatinine is unknown. -Continued IV fluids until adequately hydrated then discontinued. -Avoid nephrotoxic agents. -Continue to monitor renal function periodically. 5. Acute metabolic encephalopathy, present on admission, improved. -Continue to treat infection as above. She may also suffer from intermittent hypercarbia given her significant hypercarbic respiratory failure. She may also be suffering from some hospital delirium given her current length of stay. -CT brain without contrast did not demonstrate any acute intracranial abnormalities. -on 08/08 discontinued Seroquel 25 mg HS which was started earlier this admission for acute delirium. Patient had been doing much better mentally with resolution delirium. -Nursing staff to try to keep patient awake and stimulated throughout day and allow uninterrupted sleep with minimal interruptions at night. -decreased LOC 08/08 possibly due to high CO2 from too much oxygen, lower O2 to maintain sat 88-90% 6. Acute sepsis, present on admission. Resolved. -Patient presented with leukocytosis and tachycardia with evidence of organ dysfunction including metabolic encephalopathy and DOM with staph bacteremia from sore right lower extremity cellulitis, probable abscesses and possible septic joint. -Early goal directed therapy met including: IV antibiotics and IV fluid resuscitation. 7. Possible gout exacerbation with hyperuricemia, present on admission. Active. -Initial uric acid of 12.9. Repeat uric acid 11.1. Patient has history of gout but is not on uric acid lowering medication at home? -Unclear if this represents a gouty attack. Patient has had several courses of prednisone as an outpatient over last 2 weeks. Plan to avoid steroids at this time given staph bacteremia. -Will plan to start uric acid lowering medication prior to discharge. 8. Paroxysmal atrial fibrillation on Eliquis, chronic, present on admission. Stable. -Eliquis discontinued 08/10 for guaiac positive stools 9. Diastolic congestive heart failure, present on admission. Stable. -Does not represent CHF exacerbation. -Held metolazone and spironolactone. Previous diuresis have been ineffective at high doses and she he was to follow up with nephrology upon discharge in May which is unclear if pursued. -Continue strict I&Os and daily weights. -Repeated echocardiogram as above to assess for valvular vegetations. -will start IV lasix 20 mg daily to maintain euvolemia. 10. Morbid obesity, chronic, present on admission. Stable. -BMI 46.2. -Patient has increased risk of complications due to her morbid obesity. Counseled patient on lifestyle modification including diet and exercise. -Consulted dietitian we appreciate her time and recommendations. 11. Psoriasis on Humira, chronic, present on admission. Stable. -Patient receives Humira injections every 2 weeks, with last dose approximately week and half prior to admission. She reports good response of plaque psoriasis to Humira. -Discontinued Humira and will have patient follow-up with her manager housekeeping. 12. GI bleeding - guaiac positive stools. Unclear if upper or lower but given significant stress of hospitalization likely upper. - continue protonix IV BID - continue to follow Hg - transfuse as noted above - consider general surgery consultaiton as noted above Code status: Full Code, patient refuses further consultation with palliative care. DVT prophylaxis: held pharmacologic prophylaxis for heme positive stool. Disposition: Patient remains hospitalized for severe right foot infection and will undoubtedly need halfway facility for rehabilitation at time of discharge which is yet to be determined. Quality VTE Deep Vein Thrombosis/Pulmonary Embolism Present on Admission: No
[2019-08-12] MEDS: MONTELUKAST 10 MG TABLET PO (17:15)
[2019-08-12] MEDS: MELATONIN 3 MG TABLET 6 MG PO (20:50)
[2019-08-12] MEDS: LATANOPROST 0.005% OPHTH 2.5 ML 1 DROPS EYE-BOTH (20:51)
[2019-08-13] VITALS (11 sets, daily range): BP systolic 103–115; BP diastolic 56–68; PULSE 88–100; RESP 18–34; TEMP 31.1–37.1; O2SAT 92–99
[2019-08-13] MEDS: CEFAZOLIN 2 GM/100 ML FROZ.PIGGY IV ×3 (00:53→17:07)
[2019-08-13] MEDS: TRAMADOL 50 MG TABLET 100 MG PO ×2 (01:02→17:08)
[2019-08-13] MEDS: MORPHINE 2 MG/ML INJ IV (01:57)
--- NOTE | 2019-08-13 03:36 | PC.NURSE ---
Addendum entered by Ruthie Yu R.N. 08/13/19 06:50: Pt slept intermitantly. States that pain to her RLE is well controlled currently. Pt has been maintaining sats 95-97% on 1.5L. Lungs diminished with few scattered crackles posteriorly. Original Note: Pt C/o of pain with assessment to RLE. Pt states that Tramadol worked well before and requested that this be given. Medicated per EMAR with Tramadol. Pt continuing to C/O pain 45 minutes later. Morphine 2 mg given. Pt requesting that BIPAP be removed and nasal cannula applied. RT notified and in to change patient over to nasal cannula @ 1.5L with sats @ 97%.
[2019-08-13 06:31] LABS: Hematocrit 22.3 % (36-46); Hemoglobin 7.5 g/dL (12.0-16.0); Mean Corpuscular HGB Conc 33.8 % (30-36); Mean Corpuscular Hemoglobin 32.7 PG (26-34); Mean Corpuscular Volume 96.7 fL (80-100); Platelet Count 368 X10^3/uL (150-400); Red Cell Distribution Width 15.4 % (11.6-14.8); White Blood Cell Count 10.7 X10^3/uL (4.5-11.0)
[2019-08-13 06:34] LABS: Add Manual Diff / Slide Review YES
[2019-08-13 06:37] LABS: Alanine Aminotransferase 6 IU/L (<35); Albumin 2.5 g/dL (3.5-5.0); Albumin Globulin Ratio 0.8 (1.0-2.8); Alkaline Phosphatase 156 U/L (38-126); Aspartate Aminotransferase 36 IU/L (14-36); BUN Creatinine Ratio 42.1 (6-22); Bilirubin Total 0.2 mg/dL (0.2-1.3); Bilirubin Unconjugated 0.2 mg/dL (0.0-1.1); Blood Urea Nitrogen 32 mg/dL (7-17); Calcium 9.5 mg/dL (8.4-10.2); Chloride 96 mmol/L (98-107); Estimated Glomerular Filt Rate > 60.0 mL/min (>60); Globulin 3.3 g/dL (1.7-4.1); Glucose 89 mg/dL (80-110); HEMOLYSIS < 15 (0-50); Magnesium 2.1 mg/dL (1.6-2.3); Potassium 4.3 mmol/L (3.4-5.1); Sodium 134 mmol/L (137-145); Total Protein 5.8 g/dL (6.3-8.2)
[2019-08-13 06:51] LABS: Carbon Dioxide 33 mmol/L (22-32)
[2019-08-13 07:25] LABS: Neutrophils Absolute Manual 9095 /uL (3000-5900); Total Cells Counted 100
[2019-08-13 07:26] LABS: Anisocytosis 1+; Basophilic Stippling 1+; Polychromasia 1+; Toxic Granulation Present
--- NOTE | 2019-08-13 07:50 | PM.PNPO.1 ---
Subjective Subjective Date Patient Seen: 08/13/19 Time Patient Seen: 07:51 Interval history: Patient is a 79 yo F now s/p 3x I&D for right lower extremity abscess and septic ankle. 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 She has a history of gout and was treated with prednisone for several weeks. She subsequently had worsening symptoms and presented to the ED. She remains admitted for MSSA bacteremia, and multiple I&Ds with orthopedic surgery of her RLE Has been transfused several times for anemia--hemoglobin this morning 7.5. Vital signs stable Complains of pain right foot but less than previous Had for wound VAC change yesterday Exam Vital Signs (past 8 hours): - 08/13/19 01:47 08/13/19 02:05 08/13/19 03:20 Temperature 97.7 F Pulse Rate 96 H Respiratory Rate 18 Blood Pressure 106/68 106/58 L Pulse Oximetry 94 94 08/13/19 06:00 Temperature 98.4 F Pulse Rate 89 Respiratory Rate 24 Blood Pressure 104/59 L Pulse Oximetry 96 Fraction of Inspired Oxygen 0.25 Oxygen Delivery Method Nasal Cannula Oxygen Flow Rate 2 Narrative Exam Narrative: Alert female lying in bed. No acute distress this morning. Complains of pain in her right foot but less than previous. Is able to wiggle her toes. Wound VAC in place with the trach pads to the medial and lateral wounds. Good suction obtained. Minimal drainage in the canister. No ascending erythema. Objective Labs Result Diagrams: 08/13/19 06:00 08/13/19 06:00 Labs: Laboratory Results - last 24 hr 08/12/19 08/12/19 08/12/19 05:34 05:34 09:34 WBC 11.5 H RBC 2.32 L Hgb 7.5 L Hct 22.2 L MCV 95.9 MCH 32.5 MCHC 33.9 RDW 15.4 H Plt Count 335 Neut % (Auto) 85.7 H Lymph % (Auto) 6.2 L [place] % (Auto) 6.1 Eos % (Auto) 1.8 L Baso % (Auto) 0.2 Neut # (Auto) 9900 H Lymph # (Auto) 700 L [place] # (Auto) 700 Eos # (Auto) 200 Baso # (Auto) 0 Total Counted Seg Neutrophils % Band Neutrophils % Lymphocytes % (Manual) Atypical Lymphs % Monocytes % (Manual) Eosinophils % (Manual) Neutrophils # (Manual) Toxic Granulation RBC Morphology Polychromasia Basophilic Stippling Anisocytosis ABG pH 7.37 ABG pCO2 62.7 H* ABG pO2 67 L ABG HCO3 36 H ABG Total CO2 38 H ABG O2 Saturation 92 L ABG Base Excess 11.0 H FiO2 26 Sodium 136 L Potassium 4.2 Chloride 97 L Carbon Dioxide 34 H BUN 35 H Creatinine 0.74 Estimated GFR > 60.0 BUN/Creatinine Ratio 47.3 H Glucose 91 Calcium 9.4 Magnesium 2.3 Total Bilirubin 0.3 Conjugated Bilirubin 0.0 Unconjugated Bilirubin 0.2 AST 39 H ALT 8 Alkaline Phosphatase 183 H D Total Protein 6.0 L Albumin 2.6 L Globulin 3.4 Albumin/Globulin Ratio 0.8 L 08/13/19 08/13/19 06:00 06:00 WBC 10.7 RBC 2.30 L Hgb 7.5 L Hct 22.3 L MCV 96.7 MCH 32.7 MCHC 33.8 RDW 15.4 H Plt Count 368 Neut % (Auto) Not Reportable Lymph % (Auto) Not Reportable [place] % (Auto) Not Reportable Eos % (Auto) Not Reportable Baso % (Auto) Not Reportable Neut # (Auto) Lymph # (Auto) Not Reportable [place] # (Auto) Not Reportable Eos # (Auto) Baso # (Auto) Not Reportable Total Counted 100 Seg Neutrophils % 76.0 H Band Neutrophils % 9.0 H Lymphocytes % (Manual) 7.0 L Atypical Lymphs % 2.0 H Monocytes % (Manual) 3.0 Eosinophils % (Manual) 3.0 Neutrophils # (Manual) 9095 H Toxic Granulation Present H RBC Morphology See below Polychromasia 1+ H Basophilic Stippling 1+ H Anisocytosis 1+ H ABG pH ABG pCO2 ABG pO2 ABG HCO3 ABG Total CO2 ABG O2 Saturation ABG Base Excess FiO2 Sodium 134 L Potassium 4.3 Chloride 96 L Carbon Dioxide 33 H BUN 32 H Creatinine 0.76 Estimated GFR > 60.0 BUN/Creatinine Ratio 42.1 H Glucose 89 Calcium 9.5 Magnesium 2.1 Total Bilirubin 0.2 Conjugated Bilirubin 0.0 Unconjugated Bilirubin 0.2 AST 36 ALT 6 Alkaline Phosphatase 156 H Total Protein 5.8 L Albumin 2.5 L Globulin 3.3 Albumin/Globulin Ratio 0.8 L Assessment & Plan Post-op Postoperative Procedures: Procedures Operation Date: 08/05/19 13:00 Actual Procedures Side Surgeon p Incision and Drainage Ankle Right Anjel Rm MD Operation Date: 08/07/19 09:30 Actual Procedures Side Surgeon p Incision and Debridement Foot, Arthrotomy Right Anjel Rm MD Operation Date: 08/10/19 16:15 Actual Procedures Side Surgeon p Incision and Drainage Foot w/ woundvac application Right Annalisa Martinez MD Assessment & Plan narrative: Patient is a 79 yo F now s/p 3x I&D and placement of wound vac. had floor vac change yesterday. 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 She has a history of gout and was treated with prednisone for several weeks. She subsequently had worsening symptoms and presented to the ED. She remains admitted for MSSA bacteremia, and multiple I&Ds with orthopedic surgery of her RLE Foot abscess/septic ankle - continue abx - wound vac in place, good suction - will continue to monitory closely - NWB RLE Quality VTE Deep Vein Thrombosis/Pulmonary Embolism Present on Admission: No
[2019-08-13] MEDS: MEROPENEM 1 GM/50 ML PIGGYBACK IV ×2 (07:51→19:49)
[2019-08-13] MEDS: PANTOPRAZOLE 40 MG VIAL IV ×2 (07:51→20:20)
[2019-08-13] MEDS: FUROSEMIDE 20 MG/2 ML VIAL IV (07:52)
[2019-08-13] MEDS: ACETAMINOPHEN 325 MG TABLET 975 MG PO ×3 (07:52→20:19)
[2019-08-13] MEDS: buPROPion XL 150 MG TAB PO (07:52)
[2019-08-13] MEDS: FLUoxetine 20 MG CAPSULE PO (07:52)
[2019-08-13] MEDS: DOCUSATE 100 MG CAPSULE PO ×2 (07:52→20:19)
[2019-08-13] MEDS: OXYCODONE IR 5 MG TABLET 2.5 MG PO (07:52)
[2019-08-13] MEDS: polyethylene glycoL 3350 17 GM POWD.PACK PO (07:53)
[2019-08-13] MEDS: TIOTROPIUM BROMIDE 2 EACH INH (09:15)
[2019-08-13] MEDS: BUDESONIDE FORMOTEROL 1 EACH INH ×2 (09:16→20:10)
[2019-08-13] MEDS: ALBUTEROL 2.5 MG/3 ML NEB (ADULT) INH (09:27)
--- NOTE | 2019-08-13 11:13 | PC.NURSE ---
Addendum entered by Solo Monzon R.N. 08/13/19 15:12: Called to room by patients. Reports new pain to bottom of left foot. Noted a blanchably red area to ball of her foot- distal great toe. It is tender to touch but temperature is the same as the rest of foot. Elevated leg on pillows, outlined area of redness, and placed an ice pack to alleviate pain. Instructed pt to notify RN of continued or increased pain. At this time, DEPUTY PROGRAM MANAGER reports pt sustained new skin tear to right ring finger during transfer back to bed from chair after lunch. Bandaid in place. Reported to oncoming RN. Addendum entered by Solo Monzon R.N. 08/13/19 14:10: Pt was assisted back to bed after lunch by PT/DEPUTY PROGRAM MANAGER via mago. Pt states she would like to rest/nap. Placed pt on trilogy with 2L bleed in. Pt resting comfortably with SPO2 94% and RR 18. [facility]25. Original Note: 1100- Pt was assisted up to chair this AM for breakfast with 2PA and mechanical lift. She is comfortable up to chair and is now requesting to recline to take a nap. Pt is refusing bipap at this time. Per report, there have been some issues with pt's home trilogy unit and I have been told that [facility] has changed out pt's original unit but there were some issues with the new unit as well. It is unclear what the issue might be exactly; however, since pt is currently refusing bipap I placed her on the trilogy unit which appears to be functioning appropriately. 3L of oxygen is being bled into the trilogy and pt is maintaining spo2 90-93% with a RR of 19-20. Will monitor.
--- NOTE | 2019-08-13 11:46 | DIET.PN ---
Dietary Progress Note RD f/u regarding nutrition to support wound healing. 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 Pt is weight stable since admit on 08/01/2019. Renal labs look good, eGFR >60, Cr 0.76, BUN 32 H but down from 59 three days ago. Plan is to continue high PRO diet while IP.
--- NOTE | 2019-08-13 12:31 | PT.IPTN ---
Current Diagnoses Cellulitis of right lower limb (08/01/19) Surgery Performed Operation Date: 08/05/19 13:00 Actual Procedures p Incision and Drainage Ankle(Right) - Anjel Rm MD Operation Date: 08/07/19 09:30 Actual Procedures p Incision and Debridement Foot, Arthrotomy(Right) - Anjel Rm MD Operation Date: 08/10/19 16:15 Actual Procedures p Incision and Drainage Foot w/ woundvac application(Right) - Annalisa Martinez MD Physical Therapy Treatment Note M2 PT-IP Current Condition Start: 08/09/19 08:22 Freq: NEEDED Status: Active Protocol: Document 08/11/19 11:38 AB (Rec: 08/11/19 14:19 AB [id number]) Physical Therapy Current Condition Current Condition Evaluation Date 08/11/19 Treatment Diagnosis GLF; R ankle abscess s/p I&D; difficulty in walking Onset Date 08/01/19 Precautions Other Precautions falls Weight Bearing Status Weight Bearing Status Non-Weight Bearing Allowed Weight Bearing Amount (enter % RLE NWB or #) (%) M3 PT-IP Subjective Start: 08/09/19 08:22 Freq: NEEDED Status: Active Protocol: Document 08/13/19 12:31 CLB (Rec: 08/13/19 13:17 CLB [email or web address]) Subjective Physical Therapy Visit Type Type Treatment Note Visit Start Time 12:31 Visit Stop Time 12:41 Total Visit Minutes 10 Number of [employer]AD[employer] AFFAIRS VICE PRESIDENT Visits 1 Physical Therapy Visit Comments Patient Comments Pt agreeable to trial sit- stand to transfer to [facility]. Therapy Pain Assessment Pain When Pain Assessed At Rest Pain Present Pain Present Pain Reported M4 PT-IP Mobility and Gait Start: 08/09/19 08:22 Freq: NEEDED Status: Active Protocol: Document 08/13/19 12:31 CLB (Rec: 08/13/19 13:17 CLB [email or web address]) PT-Transfer Assessment Comments Mobility Comments Pt performed seated ther ex., pt c/o right sided hip pain. Pt required assist with seated marches. Pt attempted sit- stand x2 with Max A x3. Pt was unable to lift buttocks off chair. Pt was prepared for mago lift to [facility]. Left pt in chair with OT and CORRECTIONAL FOOD SERVICE SUPERVISOR present. Gait Assessment Comments Gait Comments unable M5 PT-IP Objective Assessments Start: 08/09/19 08:22 Freq: NEEDED Status: Active Protocol: Document 08/11/19 11:38 AB (Rec: 08/11/19 14:19 AB [id number]) Orientation Orientation/Cognition Level of Alertness Alert Orientation Name Safety Awareness Decreased Safety Awareness Gross Range of Motion Lower Extremity ROM Assessment Within Functional Limits Strength Lower Extremity Strength Assessment Bilaterally Impaired Hip 3+/5 Knee 3+/5 M6 PT-IP Treatment Start: 08/09/19 08:22 Freq: NEEDED Status: Active Protocol: Document 08/12/19 10:54 AB (Rec: 08/12/19 12:35 AB [id number]) Physical Therapy Treatment Education Education Provided Safety M7 PT-IP Assessment and Plan Start: 08/09/19 08:22 Freq: NEEDED Status: Active Protocol: Document 08/13/19 12:31 CLB (Rec: 08/13/19 13:17 CLB [email or web address]) PT Summary Assessment and Plan Potential Rehabilitation Potential Fair Summary Impairments Pain,ROM,Strength,Balance, Coordination,Sensation, Cognition,Bed Mobility, Transfers,Gait,Activity Tolerance Progress Towards Goals Slow Progress due to Pain,Slow Progress due to Medical Issues,Slow Progress due to Activity Tolerance Assessment Summary Pt attempted sit-stand x2 but was unable to stand due to pain and weakness of RLE. Pt will require SNF rehab to improve strength and mobility. Goals Bed Mobility Goal Moderate Assistance Transfer Goal Moderate Assistance,Front Wheeled Walker Gait Goal Moderate Assistance,Front Wheel Walker Gait Distance 15 Days to Meet Goals 10 Frequency of Treatment Frequency Of Treatment Once a Day Treatment Plan Physical Therapy Treatment Plan Bed Mobility Training,Transfer Training,Gait Training, Therapeutic Exercise,Balance Retraining,Post Op Education, Discharge Planning,Hot or Cold Pack,Neuromuscular Re-ed, Coordination Retraining,Manual Therapy Other Recommendations and Next Treatment LE exercises, transfers Focus Recommendations To Nursing Amount of Assist Needed Mechanical Lift Discharge Recommendations PT Discharge Recommendations SNF Rehab Transportation Needs at Discharge Wheelchair/Cabulance
--- NOTE | 2019-08-13 12:41 | PM.PN.1 ---
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 She remains admitted for MSSA bacteremia, and is now s/p 3x I&D with wound vac placement of her RLE. She reports her right leg pain is controlled, but did have worsening pain overnight and did complain of both a hot and cold sensation and a burning type of pain. Her mental status is improved today. She does not want to speak with palliative care again. She also endorses a desire to moved to [place] after rehab to be closer to her son and [id number]. Her Hg remained stable at 7.5 today. She continues to do well on wound vac therapy, and orthopedics would like to keep her for 1-2 more dressing changes at minimum. Exam Vital Signs (past 8 hours): - 08/13/19 06:00 08/13/19 07:45 08/13/19 09:16 Temperature 98.4 F 98.1 F Pulse Rate 89 90 100 H Respiratory Rate 24 22 20 Blood Pressure 104/59 L 110/56 L Pulse Oximetry 96 95 93 08/13/19 12:21 Temperature 98.6 F Pulse Rate 97 H Respiratory Rate 22 Blood Pressure 115/57 L Pulse Oximetry 96 Fraction of Inspired Oxygen 0.25 Oxygen Delivery Method Nasal Cannula Oxygen Flow Rate 3 Narrative Exam Narrative: GENERAL APPEARANCE: obese female, in no acute distress SKIN: Inspection of the skin reveals no rashes, ulcerations or petechiae. HEENT: Normocephalic atraumatic, extraocular muscles are intact, oropharynx is clear and mucous membranes are moist, neck is supple without adenopathy NECK: Supple and symmetric. There was no thyroid enlargement, and no tenderness, or masses were felt. CHEST: Normal AP diameter and normal contour without any kyphoscoliosis. LUNGS: Auscultation of the lungs revealed no wheezes, rhonchi, or rales. CARDIOVASCULAR: There was a regular rate and rhythm without any murmurs, gallops, rubs. Peripheral pulses were 2+ and symmetric. ABDOMEN: Soft and nontender with normal bowel sounds. No ascites was noted. MUSCULOSKELETAL: Improved R foot tenderness, now minimal. Wound vac in place with clear dressings and serosanguinous drainage. EXTREMITIES: No cyanosis, clubbing. Right lower extremity dressings are clear dry. Upper extremity and lower extremity non-pitting edema bilaterally. NEUROLOGIC: Alert and oriented x3, able to move her right toes Objective Labs Result Diagrams: 08/13/19 06:00 08/13/19 06:00 Labs: Laboratory Results - last 24 hr 08/13/19 08/13/19 06:00 06:00 WBC 10.7 RBC 2.30 L Hgb 7.5 L Hct 22.3 L MCV 96.7 MCH 32.7 MCHC 33.8 RDW 15.4 H Plt Count 368 Neut % (Auto) Not Reportable Lymph % (Auto) Not Reportable [place] % (Auto) Not Reportable Eos % (Auto) Not Reportable Baso % (Auto) Not Reportable Lymph # (Auto) Not Reportable [place] # (Auto) Not Reportable Baso # (Auto) Not Reportable Total Counted 100 Seg Neutrophils % 76.0 H Band Neutrophils % 9.0 H Lymphocytes % (Manual) 7.0 L Atypical Lymphs % 2.0 H Monocytes % (Manual) 3.0 Eosinophils % (Manual) 3.0 Neutrophils # (Manual) 9095 H Toxic Granulation Present H RBC Morphology See below Polychromasia 1+ H Basophilic Stippling 1+ H Anisocytosis 1+ H Sodium 134 L Potassium 4.3 Chloride 96 L Carbon Dioxide 33 H BUN 32 H Creatinine 0.76 Estimated GFR > 60.0 BUN/Creatinine Ratio 42.1 H Glucose 89 Calcium 9.5 Magnesium 2.1 Total Bilirubin 0.2 Conjugated Bilirubin 0.0 Unconjugated Bilirubin 0.2 AST 36 ALT 6 Alkaline Phosphatase 156 H Total Protein 5.8 L Albumin 2.5 L Globulin 3.3 Albumin/Globulin Ratio 0.8 L Assessment & Plan Assessment & Plan narrative: Leyda Nielsen is a 79-year-old female with a past medical history significant for severe obesity, paroxysmal atrial fibrillation, diastolic CHF, chronic hypoxemic and hypercarbic 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 She remains admitted for MSSA bacteremia, now s/p 3x I&D with wound vac placement and continued monitoring by orthopedic surgery given continued purulence noted from wound vac. 1. Acute MSSA bacteremia, right foot cellulitis, multiple right foot abscesses and possible right ankle septic joint, status post I&D, present on admission. Active. -Blood cultures preliminarily positive for staph in 4:4 bottles with sensitivities pending. Source felt to be her right lower extremity given the severity of her presentation. She has no evidence of pneumonia as chest x-ray unremarkable and no abdominal pain to suspect intra-abdominal source. -Echocardiogram did not demonstrate any hemodynamically significant valvular abnormalities or obvious vegetation. -ESR was markedly elevated at > 140. -CT of the right lower extremity with contrast demonstrated subcutaneous edema of the right lower leg, small peripherally enhancing fluid collection within the medial aspect of the hindfoot probably at represents fluid within the tibialis posterior tendon sheath, suggestive of tenosynovitis. However, a small abscess cannot be completely excluded. No fractures. Moderate degenerative changes of the knee are not adequately characterized. -Blood cultures, wound culture and joint aspirate positive for MSSA on 08/01 and 08/02. Blood cultures have no growth to date on 08/04 and 08/05. -Initial WBC 32.4 and trended down slowly now normal. Procalcitonin initially negative at 0.19 then peaked at 4.93 now < 0.5. -discontinued vancomycin on 08/08 due to no evidence of MRSA. -cephazolin 2 g IV q.8 hours for MSSA and continue meropenem 1 g q.12 hours for possible mixed Gram-negative and anaerobes infection in addition to MSSA. -Continue pain control with tramadol 100 mg 4 times daily as needed for [id number] pain, oxycodone 2.5-5 mg every 4 hours as needed for moderate pain and morphine 1-2 mg IV every 6 hours only as needed for severe breakthrough pain. Will add gabapentin 300 mg BID starting tonight for additional control given burning and neuropathic type symptoms. -Consulted orthopedic surgery, Dr. Rm and Dr. Martinez, who have performed I&D x3 and wound vac placement. Most recent dressing change 08/11. Orthopedic surgery is very concerned for that the patient will require a [id number] amputation as her likelihood of healing is very low due to immunosuppression and severity of infection. They would like to further monitor her for 1 or 2 more dressing changes at minimum for continued improvement before possible discharge. Next planned dressing changes is in approximately 2-3 days. -Ordered physical and occupational therapy evaluation and treatment. -NWB RLE 2. Acute on chronic normocytic anemia, present on admission. stable. -Secondary to sepsis and infection, hemodilution from IV fluid resuscitation acute blood loss from surgery, and now guiaic positive stools with likely GI bleeding. -Initial hemoglobin 8.8. Baseline hemoglobin 10-12. Patient has received a total of 4U PRBC. Patient has sanguinous drainage of right foot in wound VAC and hemoglobin appears stable and currently >7. Transfusion for hemoglobin < 7.0. -Continue to monitor H&H daily. -Hg stable today at 7.5 -start protonix 80 mg x1 then 40 mg BID. Stopped eliquis. -consider general surgery consultation for endoscopy if hemoglobin continues to decline. 3. Chronic hypoxemic and hypercarbic respiratory failure, present on admission. Acute portion resolved. -Chronic respiratory failure multifactorial secondary to obesity hypoventilation syndrome, JEANIE, and COPD. -Patient was severely hypercarbic after initial I&D likely due to hypoventilation versus over oxygenation and then has had intermittent hypoxemia on trilogy for unclear reasons and possibly due to malfunction. Continue BiPAP per RT and [facility] to evaluate Trilogy on Friday08/09/2019. -Does not represent COPD exacerbation. -Continue home Spiriva and Symbicort with hospital formulary medications. -O2 to maintain sat 88-90%. Continue trilogy or BiPAP at all times while sleeping or napping. Avoid excess O2. 4. Acute kidney injury on CKD stage 3, present on admission. Resolved. -Initially secondary to sepsis, infection and hypermetabolic state and now due to hypotension intra and postoperatively and NSAIDs. -Initial creatinine 1.39 and trended up to 1.82. Creatinine now down to 0.74. Baseline creatinine is unknown. -Continued IV fluids until adequately hydrated then discontinued. -Avoid nephrotoxic agents. -Continue to monitor renal function periodically. 5. Acute metabolic encephalopathy, present on admission, resolved -Continue to treat infection as above. She may also suffer from intermittent hypercarbia given her significant hypercarbic respiratory failure. She may have also be suffering from some hospital delirium given her current length of stay. -CT brain without contrast did not demonstrate any acute intracranial abnormalities. -on 08/08 discontinued Seroquel 25 mg HS which was started earlier this admission for acute delirium. Patient had been doing much better mentally with resolution delirium. -Nursing staff to try to keep patient awake and stimulated throughout day and allow uninterrupted sleep with minimal interruptions at night. 6. Acute sepsis, present on admission. Resolved. -Patient presented with leukocytosis and tachycardia with evidence of organ dysfunction including metabolic encephalopathy and DOM with staph bacteremia from sore right lower extremity cellulitis, probable abscesses and possible septic joint. -Early goal directed therapy met including: IV antibiotics and IV fluid resuscitation. 7. Possible gout exacerbation with hyperuricemia, present on admission. Active. -Initial uric acid of 12.9. Repeat uric acid 11.1. Patient has history of gout but is not on uric acid lowering medication at home? -Unclear if this represents a gouty attack. Patient has had several courses of prednisone as an outpatient over last 2 weeks. Plan to avoid steroids at this time given staph bacteremia. -Will plan to start uric acid lowering medication prior to discharge. 8. Paroxysmal atrial fibrillation on Eliquis, chronic, present on admission. Stable. -Eliquis discontinued 08/10 for guaiac positive stools 9. Diastolic congestive heart failure, present on admission. Stable. -Does not represent CHF exacerbation. -Held metolazone and spironolactone. Previous diuresis have been ineffective at high doses and she he was to follow up with nephrology upon discharge in May which is unclear if pursued. -Continue strict I&Os and daily weights. -Repeated echocardiogram as above to assess for valvular vegetations. -Continue IV lasix 20 mg daily to maintain euvolemia. 10. Morbid obesity, chronic, present on admission. Stable. -BMI 46.2. -Patient has increased risk of complications due to her morbid obesity. Counseled patient on lifestyle modification including diet and exercise. -Consulted dietitian we appreciate her time and recommendations. 11. Psoriasis on Humira, chronic, present on admission. Stable. -Patient receives Humira injections every 2 weeks, with last dose approximately week and half prior to admission. She reports good response of plaque psoriasis to Humira. 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 12. GI bleeding - guaiac positive stools. Unclear if upper or lower but given significant stress of hospitalization likely upper. - continue protonix IV BID - continue to follow Hg - transfuse as noted above - consider general surgery consultaiton as noted above Code status: Full Code, patient refuses further consultation with palliative care. DVT prophylaxis: held pharmacologic prophylaxis for heme positive stool. Disposition: Patient remains hospitalized for severe right foot infection and will undoubtedly need retirement facility for rehabilitation at time of discharge which is yet to be determined. Quality VTE Deep Vein Thrombosis/Pulmonary Embolism Present on Admission: No
--- NOTE | 2019-08-13 12:44 | CM.DPNOTE ---
Addendum entered by JACKELIN Cabello 08/13/19 14:18: Faxed updated prog notes from Ortho and hospitalist Dr Cardenas to Seema/Dharmesh, also included updated therapy notes for today 08.13.19 Original Note: DCP Cont Spoke w/ Seema w/Dharmesh, covering for Mary Anne Keith. P#[phone] F#[phone]. Patient's clinical records, faxed yesterday, are still being reviewed by the physician. Seema requests additional prog notes be faxed when available today. Awaiting determination from Dharmesh; to find out if patient would be considered a good LTAC candidate? Following closely JW
--- NOTE | 2019-08-13 13:29 | OT.IP.TRT ---
Current Diagnoses Cellulitis of right lower limb (08/01/19) Surgery Performed Operation Date: 08/05/19 13:00 Actual Procedures p Incision and Drainage Ankle(Right) - Anjel Rm MD Operation Date: 08/07/19 09:30 Actual Procedures p Incision and Debridement Foot, Arthrotomy(Right) - Anjel Rm MD Operation Date: 08/10/19 16:15 Actual Procedures p Incision and Drainage Foot w/ woundvac application(Right) - Annalisa Martinez MD Occupational Therapy Treatment Note M2 OT-IP Current Condition Start: 08/11/19 16:26 Freq: Status: Active Protocol: Document 08/11/19 14:00 [facility] (Rec: 08/11/19 16:42 [facility] [id number]) Occupational Therapy Current Condition Current Condition Evaluation Date 08/11/19 Treatment Diagnosis GLF,Right foot abscesses, s/p I and D Diagnosis Onset Date 08/01/19 Weight Bearing Status Weight Bearing Status Non-Weight Bearing Allowed Weight Bearing Amount (enter % NWB RLE or #) (%) M3 OT- IP Subjective and Pain Start: 08/11/19 16:26 Freq: Status: Active Protocol: Document 08/13/19 13:08 [facility] (Rec: 08/13/19 13:28 [facility] [id number]) OT- Subjective Occupational Therapy Visit Type Type Treatment Note Visit Start Time 12:23 Visit Stop Time 13:04 Total Visit Minutes 41 Occupational Therapy Visit Comments Patient Comments Pt wanting to try to use the BSC to have a bowel movement. Patient/Caregiver Goals To eventually be able to go home. OT Pain Assessment Pain When Pain Assessed During Mobility Pain Present Pain Present Pain Reported M4 OT- IP ADL's Start: 08/11/19 16:26 Freq: Status: Active Protocol: Document 08/13/19 13:08 [facility] (Rec: 08/13/19 13:28 [facility] [id number]) OT [id number]-[id number] General Evaluation Self-Feeding Ability Standby Assistance Areas Needing Assistance Opening Containers Devices Self-Feeding Devices Adapted Utensil Comments OT Self-Feeding Comments Pt able to use larger utensil and able to independently eat at this time and just needing set-up at times. OT ADL-Grooming General Evaluation Grooming Ability Standby Assistance Areas Needing Assistance Retrieving/Set-up of Grooming Items Comments OT Grooming Comments Pt able to do grooming needs while sitting on the BSC after set-up. OT ADL-Oral Care General Eval Oral Care Ability Independent OT ADL-Dressing General Eval Lower Body Dressing Ability Total Assistance OT ADL-Toileting General Evaluation Toileting Ability Total Assistance M5 OT- IP IADL's Start: 08/11/19 16:26 Freq: Status: Active Protocol: Document 08/11/19 14:00 [facility] (Rec: 08/11/19 16:42 [facility] [id number]) OT-Instrumental Activities of Daily Living Home Safety Awareness Awareness of Need for Assistance at Home Good Awareness Ability to Problem Solve Emergency Able to Problem Solve Situations Home Safety Comments Pt able to answer all home safety questions with 100% accuracy. M6 OT- IP Functional Cognition Start: 08/11/19 16:26 Freq: Status: Active Protocol: Document 08/13/19 13:08 [facility] (Rec: 08/13/19 13:28 [facility] [id number]) Cognitive Factors Limiting Selfcare Function Cognitive Ability Level of Alertness Alert Patient Orientation Name,Year,Place,Situation Attention Span Ability Capable of Focused Attention, Unable to Sustain Attention Ability to Follow Commands Able to Follow Multi-Step Commands Cognitive Comments Cognitive Assessment Comments Today appears to be thinking better and able to follow multiple commands. Look at reassessing cognition again. M7 OT- IP Mobility and Balance Start: 08/11/19 16:26 Freq: Status: Active Protocol: Document 08/13/19 13:08 [facility] (Rec: 08/13/19 13:28 [facility] [id number]) OT-Transfer Assessment Transfers Transfer Ability Total Assistance Technique Transfer Destination Bed,Bedside Commode,Chair Transfer Technique Mechanical Lift Comments Mobility Comments Attempted to stand with MAX AX3 with FWW and pt unable to stand just on her left leg as RLE NWB. Having to use mago lift to transfer to BSC and then bed. OT- Balance Assessment Sitting Balance and Reactions Static Sitting Balance Ability Good M8 OT- IP Objective Assessments Start: 08/11/19 16:26 Freq: Status: Active Protocol: Document 08/11/19 14:00 [facility] (Rec: 08/11/19 16:42 [facility] [id number]) OT Gross Range of Motion Upper Extremity Range of Motion Assessment Within Functional Limits OT Strength Comments Strength Comments BUE 4/5 M9 OT- IP Assessment and Plan Start: 08/11/19 16:26 Freq: Status: Active Protocol: Document 08/13/19 13:08 [facility] (Rec: 08/13/19 13:28 [facility] [id number]) OT Summary Assessment and Plan Potential Rehabilitation Potential Fair Analytic Complexity at Evaluation Low Summary OT Impairments Pain,Balance,Functional Cognition,Functional Mobility, Self-Feeding,Grooming,Dressing ,Toileting,Bathing,Toilet Transfers,Shower Transfers, Activity Tolerance Progress Towards Goals Slow Progress due to Medical Issues,Slow Progress due to Activity Tolerance Assessment Summary Pt attempted to stand again but pt not able to mantain weight just on her LLE even though having 3 person to assist and with FWW. Pt will benefit from skilled rehab when medically stable to maximize her independence with ADL's and mobility. Goals Self-Feeding Goal Independent Grooming Goal Independent Dressing Goal Independent Toileting Goal Independent Bathing Goal Independent Toilet Transfer Goal Independent Shower Transfer Goal Independent Patient/Caregiver Education Goal Demonstrate Post-Op Precautions Days to Meet Goals 43 Frequency of Treatment Frequency Of Treatment Once a Day Treatment Plan OT Treatment Plan ADL Training,Functional Cognition Training,Functional Mobility,Patient/Family Education,Discharge Planning Other Treatment Recommendations and Next Reassess cognition, go over LB Treatment Focus dressing equipment Discharge Recommendations OT Discharge Recommendations SNF Rehab Home Equipment Needs defer to SNF Transportation Needs at Discharge Wheelchair/Cabulance
--- NOTE | 2019-08-13 15:28 | RT ---
KRISTA FROM [facility] MADE ADJUSTMENTS TO PATIENT'S HOME TRILOGY UNIT. SOME CHANGES INCLUDED INCREASING T[employer] VT TO 500 CC'S, SETTING BACK-UP RESPIRATORY RATE TO 16, INCREASING TRIGGER SENSITIVITY, AND ADJUSTING I-TIME AND SLOPE. THESE WERE PERFORMED ONLY BY [facility] AND NOT [facility] RT.
[2019-08-13] MEDS: MONTELUKAST 10 MG TABLET PO (17:08)
--- NOTE | 2019-08-13 17:21 | PC.NURSE ---
1700- Patient c/o left great toe pain 08/31. Medicated per order. Dr. Walker notified and he came to bedside to do an exam. Orders rec.
[2019-08-13] MEDS: predniSONE 10 MG TABLET 30 MG PO (17:50)
[2019-08-13] MEDS: GABAPENTIN 300 MG CAPSULE PO (20:19)
[2019-08-13] MEDS: LATANOPROST 0.005% OPHTH 2.5 ML 1 DROPS EYE-BOTH (20:20)
[2019-08-14] VITALS (8 sets, daily range): BP systolic 96–140; BP diastolic 56–67; PULSE 68–130; RESP 18–20; TEMP 35.9–37.4; O2SAT 93–99
[2019-08-14] MEDS: CEFAZOLIN 2 GM/100 ML FROZ.PIGGY IV ×3 (01:33→17:19)
[2019-08-14 06:46] LABS: Add Manual Diff / Slide Review NO; Basophils Absolute Auto 0 /uL (0-100); Basophils Percent Auto 0.2 % (0-2); Eosinophils Absolute Auto 0 /uL (0-450); Hematocrit 24.1 % (36-46); Lymphocytes Absolute Auto 400 /uL (1100-4500); Lymphocytes Percent Auto 4.7 % (25-40); Mean Corpuscular HGB Conc 33.2 % (30-36); Mean Corpuscular Hemoglobin 31.9 PG (26-34); Monocytes Absolute Auto 300 /uL (0-900); Monocytes Percent Auto 3.4 % (3-14); Neutrophils Absolute Auto 8400 /uL (1500-7000); Neutrophils Percent Auto 91.7 % (50-75); Platelet Count 412 X10^3/uL (150-400); Red Blood Cell Count 2.51 X10^6/uL (4.0-5.2); Red Cell Distribution Width 15.6 % (11.6-14.8); White Blood Cell Count 9.1 X10^3/uL (4.5-11.0)
--- NOTE | 2019-08-14 06:49 | PC.NURSE ---
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 Pt turned herself several times independently. PICC in place in lt upper arm, and dressing is cdi. [place] catheter patent, urine is minor. Woundvac in place on rt foot, and unit is on. Pt was on home Trilogy with O2 2L bleed-in for most of the night, and is now on O2 via NC.
[2019-08-14 07:00] LABS: BUN Creatinine Ratio 40.3 (6-22); Blood Urea Nitrogen 29 mg/dL (7-17); Calcium 9.6 mg/dL (8.4-10.2); Carbon Dioxide 39 mmol/L (22-32); Chloride 95 mmol/L (98-107); Estimated Glomerular Filt Rate > 60.0 mL/min (>60); Glucose 122 mg/dL (80-110); HEMOLYSIS < 15 (0-50); Magnesium 1.9 mg/dL (1.6-2.3); Potassium 4.6 mmol/L (3.4-5.1); Sodium 134 mmol/L (137-145)
--- NOTE | 2019-08-14 08:19 | PM.PN.1 ---
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 She remains admitted for severe right foot infection and MSSA bacteremia now status post I&D x 3 with wound VAC placement. The patient is resting in bed comfortably. She is mentating clearly. She is communicating and the most interactive I have seen her. She has no complaints and reports the last two days have been the best her right foot has felt and is without pain. However, she endorses significant pain with wound VAC dressing changes and requests pre-medicating with pain medication that will give her more relief. Plan for IV dilaudid with wound VAC dressing changes. She also believes that the pain medications make her too sleepy and she is not as active as she should be when she is receiving them (not around wound VAC dressing changes), therefore, she requests dosing be lowered. Discussed necessity for previous palliative care consult to establish goals of care and the patient ultimately relays that she desires pain control but the ability to be interactive and the long-term goal is to to return home to her dog and family to help care for her after possibly LTAC then SNF for rehabilitation. She is voiding and eliminating without difficulty. She is up with assistance and nonweightbearing on right lower extremity. Exam Vital Signs (past 8 hours): - 08/14/19 00:23 08/14/19 05:41 Temperature 97.5 F L 96.7 F L Pulse Rate 87 80 Respiratory Rate 18 20 Blood Pressure 127/60 140/67 Pulse Oximetry 93 98 Fraction of Inspired Oxygen 0.25 Oxygen Delivery Method Nasal Cannula Oxygen Flow Rate 1.5 Narrative Exam Narrative: General: Elderly female lying in bed, in no acute distress, well-developed, well-nourished, alert and oriented, appropriately interactive. HEENT: Normocephalic, atraumatic. External ears without defect. Pupils equal, round, and reactive to light. Anicteric sclerae, moist conjunctivae, and no lid lag. Neck: Supple with full range of motion. No jugular venous distension. No lymphadenopathy or thyromegaly. Cardiovascular: Irregularly irregular without murmurs, rubs, or gallops appreciated. Pulmonary: Clear to auscultation bilaterally in anterior lung simons without crackles, wheezes, or rhonchi. Normal respiratory effort with no use of accessory muscles. Abdomen: Soft, obese, bowel sounds present, nontender, nondistended. Extremities: No clubbing or cyanosis. Mild pitting edema of bilateral lower extremities. Scattered ecchymosis throughout upper extremities. Right foot with dressing and wound VAC in place C/D/I with minimal serosanguineous/purulent drainage. Neurological: Cranial nerves grossly intact. Psychiatric: Normal mood and affect. Alert oriented x3. Objective Labs Result Diagrams: 08/15/19 05:35 08/15/19 05:35 Labs: Laboratory Results - last 24 hr 08/14/19 08/14/19 05:00 05:00 WBC 9.1 RBC 2.51 L Hgb 8.0 L Hct 24.1 L MCV 96.0 MCH 31.9 MCHC 33.2 RDW 15.6 H Plt Count 412 H Neut % (Auto) 91.7 H Lymph % (Auto) 4.7 L [place] % (Auto) 3.4 Eos % (Auto) 0.0 L Baso % (Auto) 0.2 Neut # (Auto) 8400 H Lymph # (Auto) 400 L [place] # (Auto) 300 Eos # (Auto) 0 Baso # (Auto) 0 Sodium 134 L Potassium 4.6 Chloride 95 L Carbon Dioxide 39 H BUN 29 H Creatinine 0.72 Estimated GFR > 60.0 BUN/Creatinine Ratio 40.3 H Glucose 122 H Calcium 9.6 Magnesium 1.9 Assessment & Plan Assessment & Plan narrative: Leyda Nielsen is a 79-year-old female with a past medical history significant for morbid obesity, paroxysmal atrial fibrillation, diastolic CHF, chronic hypoxemic and hypercarbic respiratory failure secondary to OHS, JEANIE and COPD and 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 She remains admitted for severe right foot infection and MSSA bacteremia now status post I&D x 3 with wound VAC placement. 1. Acute MSSA bacteremia, right foot cellulitis, multiple right foot abscesses and possible right ankle septic joint, status post I&D, present on admission. Active. -Blood cultures, wound culture and joint aspirate positive for MSSA on 08/01 and 08/02. Repeat blood cultures have no growth to date on 08/04 and 08/05. -Initial WBC 32.4 and trended down slowly and now normalized. Procalcitonin initially negative at 0.19 then peaked at 4.93 then trended down and negative. -Echocardiogram did not demonstrate any hemodynamically significant valvular abnormalities or obvious vegetation. -ESR was markedly elevated at > 140 and CRP highly elevated at 36.6. Plan to repeat ESR and CRP tomorrow to monitor response to infection. -CT of the right lower extremity with contrast demonstrated subcutaneous edema of the right lower leg, small peripherally enhancing fluid collection within the medial aspect of the hindfoot probably at represents fluid within the tibialis posterior tendon sheath, suggestive of tenosynovitis. However, a small abscess cannot be completely excluded. No fractures. Moderate degenerative changes of the knee are not adequately characterized. -Discontinued vancomycin on 08/08 due to no evidence of MRSA. Continue cefazolin 2 g IV every 8 hours for MSSA and meropenem 1 g every 12 hours for possible mixed Gram-negative and anaerobic infection in addition to MSSA. -Continue pain control with tramadol 50-100 mg 4 times daily as needed for [id number] pain, hydrocodone 2.5-5 mg every 6 hours for moderate pain and Dilaudid 0.5-1 mg only as needed for wound VAC dressing changes. Continue gabapentin 300 mg twice daily for neuropathic pain. -Consulted orthopedic surgery, Dr. Rm and Dr. Martinez, who have performed I&D x3 and wound VAC placement. Most recent dressing change 08/11. Orthopedic surgery is very concerned for that the patient will require a [id number] amputation as her likelihood of healing is very low due to immunosuppression and severity of infection. They would like to further monitor her for 1 or 2 more dressing changes at minimum for continued improvement before possible discharge to LTAC or SNF. Plan for dressing change every 3 days. -Continue physical and occupational therapy evaluation and treatment. Patient is non-weightbearing on right lower extremity. 2. Possible gout exacerbation with hyperuricemia, present on admission. Active. -Uric acid was initially highly elevated at 12.9. Repeat uric acid down to 7.8. Patient has history of 1 previous gout attack but had not yet been started on uric acid lowering medication. -Patient likely had underlying gout attack that led to superimposed joint and foot infection. Two weeks prior to admission patient had several courses of prednisone. Avoided glucocorticoid initially due to MSSA bacteremia. However, patient had inflammation of left hallux on 08/12 and was started short prednisone taper. -Will plan to start uric acid lowering medication prior to discharge. 3. Acute GI bleed, secondary to GI stress of hospitalization, not present on admission. Stable. -Patient had guaiac positive stools. Unclear if upper or lower GI bleed but given significant stress of hospitalization likely upper. -Received Protonix 80 mg IV x1 then switched to Protonix 40 mg twice daily. Held Eliquis and have restarted today as hemoglobin has stabilized. -Continue to monitor closely for signs of bleeding and H&H daily. Transfusion goal hemoglobin < 7.0. Consider general surgery consultation for endoscopy if hemoglobin continues to decline. 4. Acute on chronic normocytic anemia, present on admission. Stable. -Secondary to sepsis and infection, hemodilution from IV fluid resuscitation, acute blood loss from surgery and now probable GI bleed with guaiac positive stool. -Initial hemoglobin 8.8. Baseline hemoglobin 10-12. Patient has received a total of 4U PRBC. Patient has minimal serosanguineous/purulent drainage of right foot in wound VAC and hemoglobin appears stable. Transfusion goal hemoglobin < 7.0. -Continue to monitor H&H daily. 5. Chronic hypoxemic and hypercarbic respiratory failure, present on admission. Acute portion resolved. -Chronic respiratory failure multifactorial secondary to obesity hypoventilation syndrome, JEANIE, and COPD. -Patient was severely hypercarbic after initial I&D likely due to hypoventilation versus over oxygenation and then has had intermittent hypoxemia on trilogy for unclear reasons and possibly due to malfunction. Farrukh evaluated and reset settings of trilogy on 08/09/2019. -Does not represent COPD exacerbation. -Continue home Spiriva and Symbicort with hospital formulary medications. -Continue supplemental oxygen as necessary to maintain oxygen saturations 88-92%. Continue trilogy or BiPAP at all times while sleeping or napping. Avoid excessive oxygenation as will drive hypercarbia. 6. Acute kidney injury on CKD stage 3, present on admission. Acute kidney injury resolved. -Initially secondary to sepsis, infection and hypermetabolic state then later hypotension intra and postoperatively and NSAIDs. -Initial creatinine 1.39 and trended up to 1.82. Creatinine has normalized and is stable. Baseline creatinine is unknown. -Continued IV fluids until adequately hydrated then discontinued. -Avoid nephrotoxic agents. -Continue to monitor renal function periodically. 7. Acute metabolic encephalopathy, present on admission. Resolved. -Continue to treat infection as above. She may also suffer from intermittent hypercarbia given her significant hypercarbic respiratory failure. She may have also be suffering from some hospital delirium given her current length of stay. -CT brain without contrast did not demonstrate any acute intracranial abnormalities. -Discontinued Seroquel 25 mg daily at bedtime on 08/09/2019 as patient has been mentating clearly and this was started earlier in this admission for acute delirium. -Nursing staff to try to keep patient awake and stimulated throughout day and allow uninterrupted sleep with minimal interruptions at night. 8. Acute sepsis, present on admission. Resolved. -Patient presented with leukocytosis and tachycardia with evidence of organ dysfunction including metabolic encephalopathy and DOM with staph bacteremia from sore right lower extremity cellulitis, probable abscesses and possible septic joint. -Early goal directed therapy met including: IV antibiotics and IV fluid resuscitation. 9. Paroxysmal atrial fibrillation on Eliquis, chronic, present on admission. Stable. -Eliquis discontinued on 08/10 for probable GI bleed with guaiac-positive stool. Plan to restart Eliquis 5 mg twice daily today as patient is high risk for DVT with immobilization and atrial fibrillation. Continue to monitor H&H closely. Continue PPI with Protonix 40 mg twice daily. 10. Diastolic congestive heart failure, chronic, present on admission. Stable. -Does not represent CHF exacerbation. -Held metolazone and spironolactone. Previous diuresis have been ineffective at high doses and she he was to follow up with nephrology upon discharge in May which is unclear if pursued. -Continue furosemide 20 mg IV daily to keep patient euvolemic while hospitalized. -Continue strict I&Os and daily weights. -Repeated echocardiogram as above to assess for valvular vegetations. 11. Morbid obesity, chronic, present on admission. Stable. -BMI 46.2. -Patient has increased risk of complications due to her morbid obesity. Counseled patient on lifestyle modification including diet and exercise. -Consulted dietitian we appreciate her time and recommendations. 12. Psoriasis on Humira, chronic, present on admission. Stable. -Patient receives Humira injections every 2 weeks, with last dose approximately week and half prior to admission. She reports good response of plaque psoriasis to Humira. -Discontinued Humira and will have patient follow-up with her lead military analyst. Code status: Full Code, patient refuses further consultation with palliative care. DVT prophylaxis: Previously held Eliquis due to probable GI bleed but patient high risk of DVT and therefore we will restart today. Disposition: Patient remains hospitalized for severe right foot infection and will undoubtedly need alf facility for rehabilitation at time of discharge which is yet to be determined. Quality VTE Deep Vein Thrombosis/Pulmonary Embolism Present on Admission: No
[2019-08-14 08:39] LABS: Uric Acid 7.8 mg/dL (2.5-6.2)
[2019-08-14] MEDS: PANTOPRAZOLE 40 MG VIAL IV (08:59)
[2019-08-14] MEDS: MEROPENEM 1 GM/50 ML PIGGYBACK IV ×2 (08:59→20:08)
[2019-08-14] MEDS: polyethylene glycoL 3350 17 GM POWD.PACK PO (08:59)
[2019-08-14] MEDS: FUROSEMIDE 20 MG/2 ML VIAL IV (09:00)
[2019-08-14] MEDS: ACETAMINOPHEN 325 MG TABLET 975 MG PO ×3 (09:00→21:00)
[2019-08-14] MEDS: buPROPion XL 150 MG TAB PO (09:00)
[2019-08-14] MEDS: FLUoxetine 20 MG CAPSULE PO (09:01)
[2019-08-14] MEDS: DOCUSATE 100 MG CAPSULE PO (09:01)
[2019-08-14] MEDS: predniSONE 10 MG TABLET 30 MG PO (09:01)
[2019-08-14] MEDS: GABAPENTIN 300 MG CAPSULE PO ×2 (09:02→20:59)
[2019-08-14] MEDS: TRAMADOL 50 MG TABLET 100 MG PO (09:05)
[2019-08-14] MEDS: BUDESONIDE FORMOTEROL 1 EACH INH ×2 (09:06→20:32)
[2019-08-14] MEDS: TIOTROPIUM BROMIDE 2 EACH INH (09:06)
--- NOTE | 2019-08-14 10:36 | P.PN_ITS ---
Subjective Subjective Date Patient Seen: 08/14/19 Time Patient Seen: 10:37 Interval history: 79-year-old female with multiple medical problems. Status post I&D right foot and ankle has wound VAC in place which was changed by Dr. Rm the yesterday. Dr. beckford reports increased pain and swelling in the left great toe. Fortunately the patient states that has improved significantly since yesterday and she no longer is having pain in the left foot and very minimal if any discomfort in the right foot. She has no complaints today. Exam Vital Signs (past 8 hours): - 08/14/19 05:41 08/14/19 08:00 08/14/19 09:15 Temperature 96.7 F L 98.6 F Pulse Rate 80 92 H 130 H Respiratory Rate 20 20 20 Blood Pressure 140/67 128/60 Pulse Oximetry 98 99 Fraction of Inspired Oxygen 0.25 Oxygen Delivery Method Nasal Cannula Oxygen Flow Rate 93 Narrative Exam Narrative: Vital signs are stable and the patient is afebrile. Right lower extremity wound VAC on the right foot is intact and without leakage. The rem ainder of the foot is without swelling or erythema and neurovascular exam is intact. Exam of the left foot demonstrates no appreciable swelling, effusion, or erythema. There is a pen outline on the medial plantar aspect of the right great toe (1st MTP joint) which does not appear swollen or erythematous. There is no tenderness to palpation and the patient is able to move her toes without difficulty. Sensation and circulation are intact. Objective Labs Result Diagrams: 08/14/19 05:00 08/14/19 05:00 Labs: Laboratory Results - last 24 hr 08/14/19 08/14/19 08/14/19 05:00 05:00 05:00 WBC 9.1 RBC 2.51 L Hgb 8.0 L Hct 24.1 L MCV 96.0 MCH 31.9 MCHC 33.2 RDW 15.6 H Plt Count 412 H Neut % (Auto) 91.7 H Lymph % (Auto) 4.7 L [place] % (Auto) 3.4 Eos % (Auto) 0.0 L Baso % (Auto) 0.2 Neut # (Auto) 8400 H Lymph # (Auto) 400 L [place] # (Auto) 300 Eos # (Auto) 0 Baso # (Auto) 0 Sodium 134 L Potassium 4.6 Chloride 95 L Carbon Dioxide 39 H BUN 29 H Creatinine 0.72 Estimated GFR > 60.0 BUN/Creatinine Ratio 40.3 H Glucose 122 H Uric Acid 7.8 H Calcium 9.6 Magnesium 1.9 Assessment & Plan Post-op Postoperative Procedures: Procedures Operation Date: 08/05/19 13:00 Actual Procedures Side Surgeon p Incision and Drainage Ankle Right Anjel Rm MD Operation Date: 08/07/19 09:30 Actual Procedures Side Surgeon p Incision and Debridement Foot, Arthrotomy Right Anjel Rm MD Operation Date: 08/10/19 16:15 Actual Procedures Side Surgeon p Incision and Drainage Foot w/ woundvac application Right Annalisa Martinez MD Postoperative status narrative: Patient doing reasonably well and feeling well today. No significant pain. Left foot without signs of problem and increase left great toe pain and swelling may have been a flare of gout. No further treatment required at this time. Right foot issue plan wound VAC change Friday. Quality VTE Deep Vein Thrombosis/Pulmonary Embolism Present on Admission: No
--- NOTE | 2019-08-14 11:07 | OT.IP.TRT ---
Current Diagnoses Cellulitis of right lower limb (08/01/19) Surgery Performed Operation Date: 08/05/19 13:00 Actual Procedures p Incision and Drainage Ankle(Right) - Anjel Rm MD Operation Date: 08/07/19 09:30 Actual Procedures p Incision and Debridement Foot, Arthrotomy(Right) - Anjel Rm MD Operation Date: 08/10/19 16:15 Actual Procedures p Incision and Drainage Foot w/ woundvac application(Right) - Annalisa Martinez MD Occupational Therapy Treatment Note M2 OT-IP Current Condition Start: 08/11/19 16:26 Freq: Status: Active Protocol: Document 08/11/19 14:00 [facility] (Rec: 08/11/19 16:42 [facility] [id number]) Occupational Therapy Current Condition Current Condition Evaluation Date 08/11/19 Treatment Diagnosis GLF,Right foot abscesses, s/p I and D Diagnosis Onset Date 08/01/19 Weight Bearing Status Weight Bearing Status Non-Weight Bearing Allowed Weight Bearing Amount (enter % NWB RLE or #) (%) M3 OT- IP Subjective and Pain Start: 08/11/19 16:26 Freq: Status: Active Protocol: Document 08/14/19 15:26 CGR (Rec: 08/14/19 15:33 CGR [id number]) OT- Subjective Occupational Therapy Visit Type Type Progress Note Visit Start Time 10:48 Visit Stop Time 11:07 Total Visit Minutes 19 Occupational Therapy Visit Comments Patient Comments I still feel a little off but over all I feel much better. OT Pain Assessment Pain When Pain Assessed At Rest Pain Present Pain Present Denied Pain M4 OT- IP ADL's Start: 08/11/19 16:26 Freq: Status: Active Protocol: Document 08/13/19 13:08 [facility] (Rec: 08/13/19 13:28 [facility] [id number]) OT IOV-Zorl-Upglwyx General Evaluation Self-Feeding Ability Standby Assistance Areas Needing Assistance Opening Containers Devices Self-Feeding Devices Adapted Utensil Comments OT Self-Feeding Comments Pt able to use larger utensil and able to independently eat at this time and just needing set-up at times. OT ADL-Grooming General Evaluation Grooming Ability Standby Assistance Areas Needing Assistance Retrieving/Set-up of Grooming Items Comments OT Grooming Comments Pt able to do grooming needs while sitting on the BSC after set-up. OT ADL-Oral Care General Eval Oral Care Ability Independent OT ADL-Dressing General Eval Lower Body Dressing Ability Total Assistance OT ADL-Toileting General Evaluation Toileting Ability Total Assistance M5 OT- IP IADL's Start: 08/11/19 16:26 Freq: Status: Active Protocol: Document 08/11/19 14:00 [facility] (Rec: 08/11/19 16:42 [facility] [id number]) OT-Instrumental Activities of Daily Living Home Safety Awareness Awareness of Need for Assistance at Home Good Awareness Ability to Problem Solve Emergency Able to Problem Solve Situations Home Safety Comments Pt able to answer all home safety questions with 100% accuracy. M6 OT- IP Functional Cognition Start: 08/11/19 16:26 Freq: Status: Active Protocol: Document 08/14/19 15:26 CGR (Rec: 08/14/19 15:33 CGR [id number]) Cognitive Factors Limiting Selfcare Function Cognitive Ability Level of Alertness Alert Patient Orientation Name,Age,Birthday,Month,Date, Year,Day of Week,Place, Situation Attention Span Ability Capable of Focused Attention, Capable of Sustained Attention Cognitive Tests SLUMS Pt participated in updated cog assessment. Pt scored 26/30 missing mostly number related items. This puts pt just below the normal rathings for the SLUMS assessment. OT- Vision and Hearing OT- Vision Assessment Vision Assessment Comments Pt having difficulty with depth perception and at times states seeing double. M7 OT- IP Mobility and Balance Start: 08/11/19 16:26 Freq: Status: Active Protocol: Document 08/13/19 13:08 [facility] (Rec: 08/13/19 13:28 [facility] [id number]) OT-Transfer Assessment Transfers Transfer Ability Total Assistance Technique Transfer Destination Bed,Bedside Commode,Chair Transfer Technique Mechanical Lift Comments Mobility Comments Attempted to stand with MAX AX3 with FWW and pt unable to stand just on her left leg as RLE NWB. Having to use mago lift to transfer to BSC and then bed. OT- Balance Assessment Sitting Balance and Reactions Static Sitting Balance Ability Good M8 OT- IP Objective Assessments Start: 08/11/19 16:26 Freq: Status: Active Protocol: Document 08/11/19 14:00 [facility] (Rec: 08/11/19 16:42 [facility] [id number]) OT Gross Range of Motion Upper Extremity Range of Motion Assessment Within Functional Limits OT Strength Comments Strength Comments BUE 4/5 M9 OT- IP Assessment and Plan Start: 08/11/19 16:26 Freq: Status: Active Protocol: Document 08/14/19 15:26 CGR (Rec: 08/14/19 15:33 CGR [id number]) OT Summary Assessment and Plan Potential Rehabilitation Potential Fair Analytic Complexity at Evaluation Low Summary OT Impairments Pain,Balance,Functional Cognition,Functional Mobility, Self-Feeding,Grooming,Dressing ,Toileting,Bathing,Toilet Transfers,Shower Transfers, Activity Tolerance Progress Towards Goals Slow Progress due to Medical Issues,Slow Progress due to Activity Tolerance Assessment Summary Pt participated in updated cog assessment with significant improvement. Pt still suffering from declines in mobility d/t her ankle. Goals Self-Feeding Goal Independent Grooming Goal Independent Dressing Goal Independent Toileting Goal Independent Bathing Goal Independent Toilet Transfer Goal Independent Shower Transfer Goal Independent Patient/Caregiver Education Goal Demonstrate Post-Op Precautions Days to Meet Goals 42 Frequency of Treatment Frequency Of Treatment Once a Day Treatment Plan OT Treatment Plan ADL Training,Functional Cognition Training,Functional Mobility,Patient/Family Education,Discharge Planning Other Treatment Recommendations and Next go over LB dressing equipment Treatment Focus Discharge Recommendations OT Discharge Recommendations SNF Rehab Home Equipment Needs defer to SNF Transportation Needs at Discharge Wheelchair/Cabulance,Stretcher /Ambulance
--- NOTE | 2019-08-14 16:07 | PT.IPTN ---
Current Diagnoses Cellulitis of right lower limb (08/01/19) Surgery Performed Operation Date: 08/05/19 13:00 Actual Procedures p Incision and Drainage Ankle(Right) - Anjel Rm MD Operation Date: 08/07/19 09:30 Actual Procedures p Incision and Debridement Foot, Arthrotomy(Right) - Anjel Rm MD Operation Date: 08/10/19 16:15 Actual Procedures p Incision and Drainage Foot w/ woundvac application(Right) - Annalisa Martinez MD Physical Therapy Treatment Note M2 PT-IP Current Condition Start: 08/09/19 08:22 Freq: NEEDED Status: Active Protocol: Document 08/11/19 11:38 AB (Rec: 08/11/19 14:19 AB [id number]) Physical Therapy Current Condition Current Condition Evaluation Date 08/11/19 Treatment Diagnosis GLF; R ankle abscess s/p I&D; difficulty in walking Onset Date 08/01/19 Precautions Other Precautions falls Weight Bearing Status Weight Bearing Status Non-Weight Bearing Allowed Weight Bearing Amount (enter % RLE NWB or #) (%) M3 PT-IP Subjective Start: 08/09/19 08:22 Freq: NEEDED Status: Active Protocol: Document 08/14/19 15:12 LJ (Rec: 08/14/19 16:07 LJ [id number]) Subjective Physical Therapy Visit Type Type Treatment Note Visit Start Time 15:12 Visit Stop Time 15:34 Total Visit Minutes 22 Physical Therapy Visit Comments Patient Comments Pt agreeable to trial sit- stand to transfer to [facility] [place]. Therapy Pain Assessment Pain When Pain Assessed At Rest Pain Present Pain Present Pain Reported M4 PT-IP Mobility and Gait Start: 08/09/19 08:22 Freq: NEEDED Status: Active Protocol: Document 08/14/19 15:12 LJ (Rec: 08/14/19 16:07 LJ [id number]) PT-Transfer Assessment Comments Mobility Comments Pt attempted to trial sit<> stand from chair. Unable to lift buttocks off chair without putting weight on RLE. Pt was lead in chair exercises instead of attempting to stand again. Gait Assessment Comments Gait Comments unable M5 PT-IP Objective Assessments Start: 08/09/19 08:22 Freq: NEEDED Status: Active Protocol: Document 08/11/19 11:38 AB (Rec: 08/11/19 14:19 AB [id number]) Orientation Orientation/Cognition Level of Alertness Alert Orientation Name Safety Awareness Decreased Safety Awareness Gross Range of Motion Lower Extremity ROM Assessment Within Functional Limits Strength Lower Extremity Strength Assessment Bilaterally Impaired Hip 3+/5 Knee 3+/5 M6 PT-IP Treatment Start: 08/09/19 08:22 Freq: NEEDED Status: Active Protocol: Document 08/14/19 15:12 LJ (Rec: 08/14/19 16:07 LJ [id number]) Physical Therapy Treatment Exercises Exercises Ankle Pumps,Gluteal Sets, Straight Leg Raises,Seated Knee Flexion/Extension M7 PT-IP Assessment and Plan Start: 08/09/19 08:22 Freq: NEEDED Status: Active Protocol: Document 08/14/19 15:12 LJ (Rec: 08/14/19 16:07 [id number]) PT Summary Assessment and Plan Potential Rehabilitation Potential Fair Summary Impairments Pain,ROM,Strength,Balance, Coordination,Sensation, Cognition,Bed Mobility, Transfers,Gait,Activity Tolerance Progress Towards Goals Slow Progress due to Pain,Slow Progress due to Medical Issues,Slow Progress due to Activity Tolerance Assessment Summary Pt attempted sit-stand x2 but was unable to stand due to pain and weakness. She performed guided exercises in the chair and fatigued after a couple repetitions of each exercise. She states she wants to get up and thinks she could do so if she could put weight on her foot. She will require SNF rehab for strength and endurance. Goals Bed Mobility Goal Moderate Assistance Transfer Goal Moderate Assistance,Front Wheeled Walker Gait Goal Moderate Assistance,Front Wheel Walker Gait Distance 15 Days to Meet Goals 10 Frequency of Treatment Frequency Of Treatment Once a Day Recommendations To Nursing Amount of Assist Needed Mechanical Lift Discharge Recommendations PT Discharge Recommendations SNF Rehab Transportation Needs at Discharge Wheelchair/Cabulance
[2019-08-14] MEDS: MONTELUKAST 10 MG TABLET PO (16:17)
[2019-08-14] MEDS: NYSTATIN POWDER 15GM 1 APPLIC TOP ×2 (16:18→21:03)
[2019-08-14] MEDS: APIXABAN 5 MG TABLET PO (20:59)
[2019-08-14] MEDS: MELATONIN 3 MG TABLET 6 MG PO (20:59)
[2019-08-14] MEDS: PANTOPRAZOLE 40 MG TABLET PO (21:01)
[2019-08-14] MEDS: LATANOPROST 0.005% OPHTH 2.5 ML 1 DROPS EYE-BOTH (21:03)
[2019-08-15] VITALS (8 sets, daily range): BP systolic 100–135; BP diastolic 51–81; PULSE 64–102; RESP 16–20; TEMP 36.4–37.2; O2SAT 95–97
[2019-08-15] MEDS: CEFAZOLIN 2 GM/100 ML FROZ.PIGGY IV ×3 (00:43→17:16)
[2019-08-15 05:58] LABS: Add Manual Diff / Slide Review NO; Basophils Absolute Auto 0 /uL (0-100); Basophils Percent Auto 0.4 % (0-2); Eosinophils Absolute Auto 100 /uL (0-450); Eosinophils Percent Auto 1.8 % (2-4); Hematocrit 23.6 % (36-46); Hemoglobin 7.7 g/dL (12.0-16.0); Lymphocytes Absolute Auto 1000 /uL (1100-4500); Lymphocytes Percent Auto 11.5 % (25-40); Mean Corpuscular HGB Conc 32.6 % (30-36); Mean Corpuscular Hemoglobin 31.7 PG (26-34); Mean Corpuscular Volume 97.1 fL (80-100); Monocytes Absolute Auto 700 /uL (0-900); Monocytes Percent Auto 8.1 % (3-14); Neutrophils Absolute Auto 6500 /uL (1500-7000); Neutrophils Percent Auto 78.2 % (50-75); Platelet Count 416 X10^3/uL (150-400); Red Blood Cell Count 2.43 X10^6/uL (4.0-5.2); Red Cell Distribution Width 15.8 % (11.6-14.8); White Blood Cell Count 8.3 X10^3/uL (4.5-11.0)
[2019-08-15] MEDS: PANTOPRAZOLE 40 MG TABLET PO (06:01)
[2019-08-15 06:07] LABS: Alanine Aminotransferase 4 IU/L (<35); Albumin 2.5 g/dL (3.5-5.0); Albumin Globulin Ratio 0.7 (1.0-2.8); Alkaline Phosphatase 138 U/L (38-126); Aspartate Aminotransferase 25 IU/L (14-36); BUN Creatinine Ratio 47.3 (6-22); Bilirubin Total 0.3 mg/dL (0.2-1.3); Blood Urea Nitrogen 35 mg/dL (7-17); C-Reactive Protein Quant 7.4 mg/dL (<1.0); Calcium 9.6 mg/dL (8.4-10.2); Carbon Dioxide 37 mmol/L (22-32); Chloride 94 mmol/L (98-107); Estimated Glomerular Filt Rate > 60.0 mL/min (>60); Globulin 3.4 g/dL (1.7-4.1); Glucose 88 mg/dL (80-110); HEMOLYSIS < 15 (0-50); Magnesium 1.8 mg/dL (1.6-2.3); Potassium 4.4 mmol/L (3.4-5.1); Sodium 134 mmol/L (137-145); Total Protein 5.9 g/dL (6.3-8.2)
[2019-08-15 06:19] LABS: Erythrocyte Sedimentation Rate 49 MM/HR (0-20)
[2019-08-15 06:27] LABS: Procalcitonin 0.07 ng/mL (<0.5)
[2019-08-15] MEDS: TIOTROPIUM BROMIDE 2 EACH INH (07:56)
[2019-08-15] MEDS: BUDESONIDE FORMOTEROL 1 EACH INH ×2 (07:56→19:38)
[2019-08-15] MEDS: MEROPENEM 1 GM/50 ML PIGGYBACK IV ×2 (08:50→21:03)
[2019-08-15] MEDS: FUROSEMIDE 20 MG/2 ML VIAL IV (08:51)
[2019-08-15] MEDS: predniSONE 20 MG TABLET PO (08:51)
[2019-08-15] MEDS: buPROPion XL 150 MG TAB PO (08:51)
[2019-08-15] MEDS: GABAPENTIN 300 MG CAPSULE PO ×2 (08:51→21:04)
[2019-08-15] MEDS: APIXABAN 5 MG TABLET PO ×2 (08:51→21:04)
[2019-08-15] MEDS: FLUoxetine 20 MG CAPSULE PO (08:51)
[2019-08-15] MEDS: polyethylene glycoL 3350 17 GM POWD.PACK PO (08:52)
[2019-08-15] MEDS: TRAMADOL 50 MG TABLET PO (08:59)
--- NOTE | 2019-08-15 09:22 | P.PN_ITS ---
Subjective Subjective Date Patient Seen: 08/15/19 Time Patient Seen: 09:22 Interval history: Status post I&D right foot. Wound VAC is intact no specific complaints today. Exam Vital Signs (past 8 hours): - 08/15/19 04:00 08/15/19 08:00 Temperature 98.0 F 98.9 F Pulse Rate 96 H 64 Respiratory Rate 18 20 Blood Pressure 135/60 105/57 L Pulse Oximetry 97 96 Fraction of Inspired Oxygen 0.25 Oxygen Delivery Method Nasal Cannula,CPAP Oxygen Flow Rate 2 Narrative Exam Narrative: Afebrile, vital signs stable. Exam of the right foot unchanged from yesterday wound VAC intact. Left foot exam benign. Objective Labs Result Diagrams: 08/15/19 05:35 08/15/19 05:35 Labs: Laboratory Results - last 24 hr 08/15/19 08/15/19 08/15/19 05:35 05:35 05:35 WBC 8.3 RBC 2.43 L Hgb 7.7 L Hct 23.6 L MCV 97.1 MCH 31.7 MCHC 32.6 RDW 15.8 H Plt Count 416 H Neut % (Auto) 78.2 H Lymph % (Auto) 11.5 L [place] % (Auto) 8.1 Eos % (Auto) 1.8 L Baso % (Auto) 0.4 Neut # (Auto) 6500 Lymph # (Auto) 1000 L [place] # (Auto) 700 Eos # (Auto) 100 Baso # (Auto) 0 ESR 49 H Sodium Potassium Chloride Carbon Dioxide BUN Creatinine Estimated GFR BUN/Creatinine Ratio Glucose Calcium Magnesium 1.8 Total Bilirubin AST ALT Alkaline Phosphatase C-Reactive Protein Total Protein Albumin Globulin Albumin/Globulin Ratio Procalcitonin 08/15/19 08/15/19 05:35 05:35 WBC RBC Hgb Hct MCV MCH MCHC RDW Plt Count Neut % (Auto) Lymph % (Auto) [place] % (Auto) Eos % (Auto) Baso % (Auto) Neut # (Auto) Lymph # (Auto) [place] # (Auto) Eos # (Auto) Baso # (Auto) ESR Sodium 134 L Potassium 4.4 Chloride 94 L Carbon Dioxide 37 H BUN 35 H Creatinine 0.74 Estimated GFR > 60.0 BUN/Creatinine Ratio 47.3 H Glucose 88 Calcium 9.6 Magnesium Total Bilirubin 0.3 AST 25 ALT 4 Alkaline Phosphatase 138 H C-Reactive Protein 7.4 H Total Protein 5.9 L Albumin 2.5 L Globulin 3.4 Albumin/Globulin Ratio 0.7 L Procalcitonin 0.07 Assessment & Plan Post-op Postoperative Procedures: Procedures Operation Date: 08/05/19 13:00 Actual Procedures Side Surgeon p Incision and Drainage Ankle Right Anjel Rm MD Operation Date: 08/07/19 09:30 Actual Procedures Side Surgeon p Incision and Debridement Foot, Arthrotomy Right Anjel Rm MD Operation Date: 08/10/19 16:15 Actual Procedures Side Surgeon p Incision and Drainage Foot w/ woundvac application Right Annalisa Martinez MD Postoperative status narrative: Status post I&D right foot. Anticipate wound VAC change tomorrow. Quality VTE Deep Vein Thrombosis/Pulmonary Embolism Present on Admission: No
[2019-08-15] MEDS: NYSTATIN POWDER 15GM 1 APPLIC TOP ×2 (10:39→21:16)
--- NOTE | 2019-08-15 10:47 | PM.PN.1 ---
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 She remains admitted for severe right foot infection and MSSA bacteremia now status post I&D x 3 with wound VAC placement. The patient is resting in bed comfortably. She reports that her right foot slightly achy today. She has no other complaints and denies headache, chest pain, shortness of breath, abdominal pain, nausea, vomiting, fever, chills, dysuria, diarrhea or constipation. She is perseverating regarding wound VAC dressing change which is planned for tomorrow. She requests conscious sedation for which I informed her that this is unrealistic and we will provide her IV Dilaudid to help alleviate pain. She is voiding and eliminating without difficulty. She is up with assistance and nonweightbearing on right lower extremity. Exam Vital Signs (past 8 hours): - 08/15/19 04:00 08/15/19 07:56 08/15/19 08:00 Temperature 98.0 F 98.9 F Pulse Rate 96 H 75 64 Respiratory Rate 18 18 20 Blood Pressure 135/60 105/57 L Pulse Oximetry 97 96 96 Fraction of Inspired Oxygen 0.25 Oxygen Delivery Method Nasal Cannula Oxygen Flow Rate 2 Narrative Exam Narrative: General: Elderly female lying in bed, in no acute distress, well-developed, well-nourished, alert and oriented, appropriately interactive. HEENT: Normocephalic, atraumatic. External ears without defect. Pupils equal, round, and reactive to light. Anicteric sclerae, moist conjunctivae, and no lid lag. Neck: Supple with full range of motion. No jugular venous distension. No lymphadenopathy or thyromegaly. Cardiovascular: Irregularly irregular without murmurs, rubs, or gallops appreciated. Pulmonary: Clear to auscultation bilaterally in anterior lung simons without crackles, wheezes, or rhonchi. Normal respiratory effort with no use of accessory muscles. Abdomen: Soft, obese, bowel sounds present, nontender, nondistended. Extremities: No clubbing or cyanosis. Mild pitting edema of bilateral lower extremities with lillie wraps to mid pretibial area and requested these be length into knees. Scattered ecchymosis throughout upper and lower extremities. Right foot with dressing and wound VAC in place C/D/I with minimal serosanguineous drainage. Left hallux MTP joint mild erythema and tenderness to palpation, improving. Neurological: Cranial nerves grossly intact. Psychiatric: Normal mood and affect. Alert oriented x3. Objective Labs Result Diagrams: 08/15/19 05:35 08/15/19 05:35 Labs: Laboratory Results - last 24 hr 08/15/19 08/15/19 08/15/19 05:35 05:35 05:35 WBC 8.3 RBC 2.43 L Hgb 7.7 L Hct 23.6 L MCV 97.1 MCH 31.7 MCHC 32.6 RDW 15.8 H Plt Count 416 H Neut % (Auto) 78.2 H Lymph % (Auto) 11.5 L Call[place] % (Auto) 8.1 Eos % (Auto) 1.8 L Baso % (Auto) 0.4 Neut # (Auto) 6500 Lymph # (Auto) 1000 L [place] # (Auto) 700 Eos # (Auto) 100 Baso # (Auto) 0 ESR 49 H Sodium Potassium Chloride Carbon Dioxide BUN Creatinine Estimated GFR BUN/Creatinine Ratio Glucose Calcium Magnesium 1.8 Total Bilirubin AST ALT Alkaline Phosphatase C-Reactive Protein Total Protein Albumin Globulin Albumin/Globulin Ratio Procalcitonin 08/15/19 08/15/19 05:35 05:35 WBC RBC Hgb Hct MCV MCH MCHC RDW Plt Count Neut % (Auto) Lymph % (Auto) Callaway % (Auto) Eos % (Auto) Baso % (Auto) Neut # (Auto) Lymph # (Auto) [place] # (Auto) Eos # (Auto) Baso # (Auto) ESR Sodium 134 L Potassium 4.4 Chloride 94 L Carbon Dioxide 37 H BUN 35 H Creatinine 0.74 Estimated GFR > 60.0 BUN/Creatinine Ratio 47.3 H Glucose 88 Calcium 9.6 Magnesium Total Bilirubin 0.3 AST 25 ALT 4 Alkaline Phosphatase 138 H C-Reactive Protein 7.4 H Total Protein 5.9 L Albumin 2.5 L Globulin 3.4 Albumin/Globulin Ratio 0.7 L Procalcitonin 0.07 Assessment & Plan Assessment & Plan narrative: Leyda Nielsen is a 79-year-old female with a past medical history significant for morbid obesity, paroxysmal atrial fibrillation, diastolic CHF, chronic hypoxemic and hypercarbic respiratory failure secondary to OHS, JEANIE and COPD and 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 She remains admitted for severe right foot infection and MSSA bacteremia now status post I&D x 3 with wound VAC placement. 1. Acute MSSA bacteremia, right foot cellulitis, multiple right foot abscesses and right ankle septic joint, status post I&D, present on admission. Active. -Blood cultures, wound culture and joint aspirate positive for MSSA on 08/01 and 08/02. Repeat blood cultures have no growth to date on 08/04 and 08/05. -Initial WBC 32.4 and trended down slowly and now normalized. Procalcitonin initially negative at 0.19 then peaked at 4.93 then trended down and negative. -Echocardiogram did not demonstrate any hemodynamically significant valvular abnormalities or obvious vegetation. -ESR was markedly elevated at > 140 and CRP highly elevated at 36.6. Repeat ESR and CRP trending down now 49 and 7.4 respectively and should be checked weekly to ensure adequate resolution of infection. -CT of the right lower extremity with contrast demonstrated subcutaneous edema of the right lower leg, small peripherally enhancing fluid collection within the medial aspect of the hindfoot probably at represents fluid within the tibialis posterior tendon sheath, suggestive of tenosynovitis. However, a small abscess cannot be completely excluded. No fractures. Moderate degenerative changes of the knee are not adequately characterized. -Discontinued vancomycin on 08/08 due to no evidence of MRSA. Continue cefazolin 2 g IV every 8 hours for MSSA and meropenem 1 g every 12 hours for possible mixed Gram-negative and anaerobic infection in addition to MSSA. -Continue pain control with tramadol 50-100 mg 4 times daily as needed for thok-aj-lkeiemau pain, hydrocodone 2.5-5 mg every 6 hours for moderate pain and Dilaudid 0.5-1 mg only as needed for wound VAC dressing changes. Continue gabapentin 300 mg twice daily for neuropathic pain. -Consulted orthopedic surgery, Dr. Rm and Dr. Martinez, who have performed I&D x3 and wound VAC placement. Most recent dressing change 08/11. Orthopedic surgery is very concerned for that the patient will require a [id number] amputation as her likelihood of healing is very low due to immunosuppression and severity of infection. They would like to further monitor her for 1 or 2 more dressing changes at minimum for continued improvement before possible discharge to LTAC or SNF. Plan for dressing change every 3-4 days. -Continue physical and occupational therapy evaluation and treatment. Patient is non-weightbearing on right lower extremity. 2. Possible gout exacerbation with hyperuricemia, present on admission. Active. -Uric acid was initially highly elevated at 12.9. Repeat uric acid down to 7.8. Patient has history of 1 previous gout attack but had not yet been started on uric acid lowering medication. -Patient likely had underlying gout attack that led to superimposed joint and foot infection. Two weeks prior to admission patient had several courses of prednisone. Avoided glucocorticoid initially due to MSSA bacteremia. However, patient had inflammation of left hallux on 08/12 and was started short prednisone taper. -Will plan to start uric acid lowering medication prior to discharge. 3. Acute GI bleed, secondary to GI stress of hospitalization, not present on admission. Stable. -Patient had guaiac positive stools. Unclear if upper or lower GI bleed but given significant stress of hospitalization likely upper. -Received Protonix 80 mg IV x1 then switched to Protonix 40 mg twice daily. Held Eliquis and have restarted today as hemoglobin has stabilized. -Continue to monitor closely for signs of bleeding and H&H daily. Transfusion goal hemoglobin < 7.0. Consider general surgery consultation for endoscopy if hemoglobin continues to decline. 4. Acute on chronic normocytic anemia, present on admission. Stable. -Secondary to sepsis and infection, hemodilution from IV fluid resuscitation, acute blood loss from surgery and now probable GI bleed with guaiac positive stool. -Initial hemoglobin 8.8. Baseline hemoglobin 10-12. Patient has received a total of 4U PRBC. Patient has minimal serosanguineous drainage of right foot in wound VAC and hemoglobin appears stable. Transfusion goal hemoglobin < 7.0. -Continue to monitor H&H daily. 5. Chronic hypoxemic and hypercarbic respiratory failure, present on admission. Acute portion resolved. -Chronic respiratory failure multifactorial secondary to obesity hypoventilation syndrome, JEANIE, and COPD. -Patient was severely hypercarbic after initial I&D likely due to hypoventilation versus over oxygenation and then has had intermittent hypoxemia on trilogy for unclear reasons and possibly due to malfunction. Farrukh evaluated and reset settings of trilogy on 08/09/2019. -Does not represent COPD exacerbation. -Continue home Spiriva and Symbicort with hospital formulary medications. -Continue supplemental oxygen as necessary to maintain oxygen saturations 88-92%. Continue trilogy or BiPAP at all times while sleeping or napping. Avoid excessive oxygenation as this will worsen hypercarbia. 6. Acute kidney injury on CKD stage 3, present on admission. Acute kidney injury resolved. -Initially secondary to sepsis, infection and hypermetabolic state then later hypotension intra and postoperatively and NSAIDs. -Initial creatinine 1.39 and trended up to 1.82. Creatinine has normalized and is stable. Baseline creatinine is unknown. -Continued IV fluids until adequately hydrated then discontinued. -Avoid nephrotoxic agents. -Continue to monitor renal function periodically. 7. Acute metabolic encephalopathy, present on admission. Resolved. -Continue to treat infection as above. She may also suffer from intermittent hypercarbia given her significant hypercarbic respiratory failure. She may have also be suffering from some hospital delirium given her current length of stay. -CT brain without contrast did not demonstrate any acute intracranial abnormalities. -Discontinued Seroquel 25 mg daily at bedtime on 08/09/2019 as patient has been mentating clearly and this was started earlier in this admission for acute delirium. -Nursing staff to try to keep patient awake and stimulated throughout day and allow uninterrupted sleep with minimal interruptions at night. 8. Acute sepsis, present on admission. Resolved. -Patient presented with leukocytosis and tachycardia with evidence of organ dysfunction including metabolic encephalopathy and DOM with staph bacteremia from source right lower extremity cellulitis, bilateral abscesses and septic joint. -Early goal directed therapy met including: IV antibiotics and IV fluid resuscitation. 9. Paroxysmal atrial fibrillation on Eliquis, chronic, present on admission. Stable. -Eliquis discontinued on 08/10 for probable GI bleed with guaiac-positive stool. Restarted and continue Eliquis 5 mg twice daily today as patient is high risk for DVT with immobilization and atrial fibrillation. Continue to monitor H&H closely. Continue PPI with Protonix 40 mg twice daily. 10. Diastolic congestive heart failure, chronic, present on admission. Stable. -Does not represent CHF exacerbation. -Held metolazone and spironolactone. Previous diuresis have been ineffective at high doses and she he was to follow up with nephrology upon discharge in May which is unclear if pursued. -Continue furosemide 20 mg IV daily to keep patient euvolemic while hospitalized. -Continue strict I&Os and daily weights. -Repeated echocardiogram as above to assess for valvular vegetations. 11. Morbid obesity, chronic, present on admission. Stable. -BMI 46.2. -Patient has increased risk of complications due to her morbid obesity. Counseled patient on lifestyle modification including diet and exercise. -Consulted dietitian and we appreciate her time and recommendations. 12. Psoriasis on Humira, chronic, present on admission. Stable. -Patient receives Humira injections every 2 weeks, with last dose approximately week and half prior to admission. She reports good response of plaque psoriasis to Humira. 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 Code status: Full Code. Patient refuses further consultation with palliative care. DVT prophylaxis: Eliquis Disposition: Patient remains hospitalized for severe right foot infection and plan for LTAC at [facility] for wound care and rehabilitation when patient is deemed medically ready by Orthopedic surgery for discharge. Quality VTE Deep Vein Thrombosis/Pulmonary Embolism Present on Admission: No
--- NOTE | 2019-08-15 11:45 | CM.DPC ---
DCP Planning: Per MD, pt remains alert and oriented and medically stabilizing and continues to have Ortho team following to manage wound vac and dressing changes. Ortho Dr. Rm to complete dressing change tomorrow 08/16/19 to determine if pt will be medically stable to d/c to potential [facility] vs SNF. REGGIE called [facility] admissions Mary Anne ([phone]) and she confirms that she received the previous faxed updated clinicals and that pt looks like a good fit and candidate for LTAC and now the next step is MD to MD call to determine if their physician feels pt appropriate for them to accept to their facility. [facility] states this call is better to have today rather than wait until pt is ready for discharge as this call determines if they can accept and then another MD handoff phone call at discharge happens. REGGIE updated MD and provided [facility] contact Dr. Jyoti Greenberg ([phone]) and requested MD to call today to determine if pt accepted to their facility when stable. SW met bedside with pt and explained role and pt confirms that she remembers talking with Dr. Cardenas about [facility] and this is her first preference at d/c. SW discussed need for backup plan in case [facility] declines accepting and pt confirms she is agreeable with SNF at d/c if she cannot do LTAC. 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 [facility] and pt agreeable with referral there but would like to talk to her family before committing to [facility]. Plan: SW to follow for MD to MD call between Hospitalist and [facility] Physician to determine if they will accept pt when stable for discharge. [facility] reviewing as backup and SW sent SNF referral to [facility] as [facility] has been fairly full with admissions this weekend. JACKELIN Macdonald
--- NOTE | 2019-08-15 13:29 | PT.IPTN ---
Current Diagnoses Cellulitis of right lower limb (08/01/19) Surgery Performed Operation Date: 08/05/19 13:00 Actual Procedures p Incision and Drainage Ankle(Right) - Anjel Rm MD Operation Date: 08/07/19 09:30 Actual Procedures p Incision and Debridement Foot, Arthrotomy(Right) - Anjel Rm MD Operation Date: 08/10/19 16:15 Actual Procedures p Incision and Drainage Foot w/ woundvac application(Right) - Annalisa Martinez MD Physical Therapy Treatment Note M2 PT-IP Current Condition Start: 08/09/19 08:22 Freq: NEEDED Status: Active Protocol: Document 08/11/19 11:38 AB (Rec: 08/11/19 14:19 AB [id number]) Physical Therapy Current Condition Current Condition Evaluation Date 08/11/19 Treatment Diagnosis GLF; R ankle abscess s/p I&D; difficulty in walking Onset Date 08/01/19 Precautions Other Precautions falls Weight Bearing Status Weight Bearing Status Non-Weight Bearing Allowed Weight Bearing Amount (enter % RLE NWB or #) (%) M3 PT-IP Subjective Start: 08/09/19 08:22 Freq: NEEDED Status: Active Protocol: Document 08/15/19 13:16 AW (Rec: 08/15/19 13:29 AW [id number]) Subjective Physical Therapy Visit Type Type Treatment Note Visit Start Time 12:52 Visit Stop Time 13:13 Total Visit Minutes 21 Number of FUNERAL HOME MAKEUP 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 Hospitalist and nursing would like pt to sit up as much as possible. Since pt has struggled to maintain NWB RLE , this PT elected to proceed with seated ther ex instead of working on transfers at this time. Gait Assessment Comments Gait Comments unable M5 PT-IP Objective Assessments Start: 08/09/19 08:22 Freq: NEEDED Status: Active Protocol: Document 08/11/19 11:38 AB (Rec: 08/11/19 14:19 AB [id number]) Orientation Orientation/Cognition Level of Alertness Alert Orientation Name Safety Awareness Decreased Safety Awareness Gross Range of Motion Lower Extremity ROM Assessment Within Functional Limits Strength Lower Extremity Strength Assessment Bilaterally Impaired Hip 3+/5 Knee 3+/5 M6 PT-IP Treatment Start: 08/09/19 08:22 Freq: NEEDED Status: Active Protocol: Document 08/15/19 13:16 AW (Rec: 08/15/19 13:29 AW [id number]) Physical Therapy Treatment Other Treatments Other Treatment Performed Pt scooted herself toward edge of chair SBA and sat with flexed posture with and without UE support. All ther ex performed at edge of chair with unsupported spine. Pt was instructed in seated pressure relief with emphasis on chest expansion, thoracic extension . She then completed seated abdominal crunches with pillow squeezes and seated diaphragmatic breathing with emphasis on reducing accessory muscle recruitment. Pt also completed manually-resisted hip abduction and adduction, seated marches and long-arc quads. Pt then sat edge of chair while resisting multi- planar and rotational forces applied at shoulder girdle by PT. M7 PT-IP Assessment and Plan Start: 08/09/19 08:22 Freq: NEEDED Status: Active Protocol: Document 08/15/19 13:16 AW (Rec: 08/15/19 13:29 AW [id number]) PT Summary Assessment and Plan Potential Rehabilitation Potential Fair Summary Impairments Pain,ROM,Strength,Balance, Coordination,Sensation, Cognition,Bed Mobility, Transfers,Gait,Activity Tolerance Progress Towards Goals Slow Progress due to Pain,Slow Progress due to Medical Issues,Slow Progress due to Activity Tolerance Assessment Summary Leyda shows good effort with seated therapeutic exercise. Focused today on maintaining postural strength to BLE strength in order to support eventual attempts at standing with NWB RLE. Pt will benefit from continued acute PT and SNF rehab at discharge. Goals Bed Mobility Goal Moderate Assistance Transfer Goal Moderate Assistance,Front Wheeled Walker Gait Goal Moderate Assistance,Front Wheel Walker Gait Distance 15 Days to Meet Goals 10 Frequency of Treatment Frequency Of Treatment Once a Day Treatment Plan Physical Therapy Treatment Plan Bed Mobility Training,Transfer Training,Gait Training, Therapeutic Exercise,Balance Retraining,Post Op Education, Discharge Planning,Hot or Cold Pack,Neuromuscular Re-ed, Coordination Retraining,Manual Therapy Other Recommendations and Next Treatment ther ex for postural muscles, Focus BLE, transfers if able Recommendations To Nursing Amount of Assist Needed Mechanical Lift Discharge Recommendations PT Discharge Recommendations SNF Rehab Transportation Needs at Discharge Wheelchair/Cabulance
[2019-08-15] MEDS: TRAMADOL 50 MG TABLET 100 MG PO (14:39)
--- NOTE | 2019-08-15 14:55 | PC.NURSE ---
pt remains [facility] lift to chair - she is alert and oriented and able to make her needs known- wound vac to right foot and plan is to change dressing to that in am 08/16/19 - pt quite anxious re: painful dressing changes in the past - Dr. MENEZES has ordered iv pain rx to administer during and prior to this procedure- 02 @ 2l nc or bleed in to trilogy at [facility]- tramadol for pain, davalos patent
[2019-08-15] MEDS: MONTELUKAST 10 MG TABLET PO (17:16)
--- NOTE | 2019-08-15 18:43 | PC.NURSE ---
Evening note: Pt is A/O x 3, able to use call light and make needs known, wound vac to right foot, with plans to change the dressing on Friday08/16/19 in the am. Pt is very anxious about the dressing change, having painful dressing changes in the past. Provider has ordered IV pain meds to administer prior and during dressing change. Pt is currently on 2L NC O2 or 2L bleed in to home triology during sleep. Willoughby catheter is patent and draining clear, yellow urine. Pt has prn tramadol for pain, and has had a BM during this shift. Bed is low and locked, call light within reach, will continue to monitor.
[2019-08-15] MEDS: MELATONIN 3 MG TABLET 6 MG PO (21:04)
[2019-08-15] MEDS: LATANOPROST 0.005% OPHTH 2.5 ML 1 DROPS EYE-BOTH (21:05)
[2019-08-16] VITALS (7 sets, daily range): BP systolic 97–110; BP diastolic 56–62; PULSE 87–95; RESP 18–20; TEMP 36.1–36.6; O2SAT 91–97
[2019-08-16] MEDS: CEFAZOLIN 2 GM/100 ML FROZ.PIGGY IV ×3 (00:43→17:06)
[2019-08-16 05:16] LABS: Add Manual Diff / Slide Review NO; Basophils Absolute Auto 100 /uL (0-100); Basophils Percent Auto 0.7 % (0-2); Eosinophils Absolute Auto 100 /uL (0-450); Eosinophils Percent Auto 1.8 % (2-4); Hematocrit 23.6 % (36-46); Lymphocytes Absolute Auto 1100 /uL (1100-4500); Lymphocytes Percent Auto 13.3 % (25-40); Mean Corpuscular HGB Conc 33.8 % (30-36); Mean Corpuscular Hemoglobin 32.8 PG (26-34); Monocytes Absolute Auto 700 /uL (0-900); Neutrophils Absolute Auto 6300 /uL (1500-7000); Neutrophils Percent Auto 76.2 % (50-75); Platelet Count 450 X10^3/uL (150-400); Red Blood Cell Count 2.43 X10^6/uL (4.0-5.2); White Blood Cell Count 8.3 X10^3/uL (4.5-11.0)
[2019-08-16 05:30] LABS: Magnesium 1.8 mg/dL (1.6-2.3)
[2019-08-16 05:44] LABS: Procalcitonin < 0.05 ng/mL (<0.5)
--- NOTE | 2019-08-16 06:08 | PC.NURSE ---
PT alert and oriented x3. Turning q 2 hours. Pt also adjusting self in bed. No complaints of pain throughout the night. Willoughby intact and draining. Pt on trilogy throughout the night, o2 sats occasionally dropping to mid 80s while on trilogy. Louie CARSON aware. Pt now on RA and satting at 92%. No complaints. Bed alarm set
[2019-08-16] MEDS: PANTOPRAZOLE 40 MG TABLET PO ×2 (06:39→21:12)
[2019-08-16] MEDS: BUDESONIDE FORMOTEROL 1 EACH INH ×2 (07:57→19:08)
[2019-08-16] MEDS: TIOTROPIUM BROMIDE 2 EACH INH (07:57)
[2019-08-16] MEDS: predniSONE 20 MG TABLET 10 MG PO (08:18)
[2019-08-16] MEDS: MEROPENEM 1 GM/50 ML PIGGYBACK IV ×2 (08:18→20:25)
[2019-08-16] MEDS: DOCUSATE 100 MG CAPSULE PO ×2 (08:19→20:25)
[2019-08-16] MEDS: GABAPENTIN 300 MG CAPSULE PO ×2 (08:19→20:25)
[2019-08-16] MEDS: APIXABAN 5 MG TABLET PO ×2 (08:19→20:25)
[2019-08-16] MEDS: TRAMADOL 50 MG TABLET 100 MG PO (08:19)
[2019-08-16] MEDS: FLUoxetine 20 MG CAPSULE PO (08:21)
[2019-08-16] MEDS: buPROPion XL 150 MG TAB PO (08:25)
[2019-08-16] MEDS: FUROSEMIDE 20 MG/2 ML VIAL IV (08:25)
--- NOTE | 2019-08-16 10:01 | PM.PNPO.1 ---
Subjective Subjective Date Patient Seen: 08/16/19 Time Patient Seen: 10:02 Interval history: Status post I and D right foot and ankle. Wound VAC in place and remains well sealed with minimal output. She remains comfortable and stable. Exam Vital Signs (past 8 hours): - 08/16/19 04:00 08/16/19 05:14 08/16/19 05:55 Temperature 97 F L Pulse Rate 95 H 87 Respiratory Rate 18 Blood Pressure 97/59 L Pulse Oximetry 96 95 Fraction of Inspired Oxygen 0.25 Oxygen Delivery Method Nasal Cannula Oxygen Flow Rate 2 Narrative Exam Narrative: Afebrile, vital signs stable. Distal neurovascular examination intact. Wound VAC sealed well and functioning, appears dry and intact. Objective Labs Result Diagrams: 08/16/19 05:00 08/15/19 05:35 Labs: Laboratory Results - last 24 hr 08/16/19 08/16/19 08/16/19 05:00 05:00 05:00 WBC 8.3 RBC 2.43 L Hgb 8.0 L Hct 23.6 L MCV 97.0 MCH 32.8 MCHC 33.8 RDW 16.0 H Plt Count 450 H Neut % (Auto) 76.2 H Lymph % (Auto) 13.3 L [place] % (Auto) 8.0 Eos % (Auto) 1.8 L Baso % (Auto) 0.7 Neut # (Auto) 6300 Lymph # (Auto) 1100 [place] # (Auto) 700 Eos # (Auto) 100 Baso # (Auto) 100 Magnesium 1.8 Procalcitonin < 0.05 Assessment & Plan Post-op Postoperative Procedures: Procedures Operation Date: 08/05/19 13:00 Actual Procedures Side Surgeon p Incision and Drainage Ankle Right Anjel Rm MD Operation Date: 08/07/19 09:30 Actual Procedures Side Surgeon p Incision and Debridement Foot, Arthrotomy Right Anjel Rm MD Operation Date: 08/10/19 16:15 Actual Procedures Side Surgeon p Incision and Drainage Foot w/ woundvac application Right Annalisa Martinez MD Postoperative status narrative: Postop right foot and ankle incision and debridement. Wound VAC right foot due for change, and that will be done either this afternoon or tomorrow morning. Quality VTE Deep Vein Thrombosis/Pulmonary Embolism Present on Admission: No
--- NOTE | 2019-08-16 11:13 | PM.CHAP ---
Very good follow-up conversation with Pt. 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 Thank you to whoever made that possible. Pt. was encouraged by the work of the CM team on her behalf. She is anxious about wound procedure on Friday but looking forward to getting out of [facility]H and on the road to recovery. Shared prayer. Michelet Higgins, [facility] [phone]
--- NOTE | 2019-08-16 11:48 | PC.NURSE ---
PT BATHED AND USED MECH LIFT TO GET TO CHAIR - SHE IS ALERT/ORIENTED AND ENGAGED IN HER CARE - PLAN IS FOR DRESSING CHANGE/WOUND VAC CHANGE FOR TODAY OR TOMORROW- DRESSING TO RIGHT FOOT IS INTACT AND SEROUS SANG DRAINAGE NOTED TO COLLECTION DEVICE IN WOUND VAC- UNWRAPPED RIGHT LEG FROM [place] WRAP DURING BATH AND PT REQUESTED WE LEAVE IT OFF FOR A BIT- WORKING WITH PT/OT AT PRESENT
[2019-08-16] MEDS: NYSTATIN POWDER 15GM 1 APPLIC TOP ×2 (12:17→20:27)
--- NOTE | 2019-08-16 12:21 | CM.DPC ---
DCP Cont: Per Ortho, Dr. Calixto did quick bedside check in with pt and plan for likely Dr. Rm to see pt in the AM to do woundvac/dressing change to determine how pt's wound is looking and if wound vac needed at discharge. Per Hospitalist, completed MD to with [facility] yesterday and REGGIE called liaison for [place], Mary Anne [phone] today and confirmed that they have accepted patient and if she is stable for d/c tomorrow they would be able to accept. Mary Anne confirms that if pt needs wound vac then if changed tomorrow then wet to dry dressing can be placed and they can put wound vac on when she arrives. REGGIE faxed updated MD note and MAR to Mary Anne to review at fax [phone]. REGGIE updated RN, MD, and then pt bedside on acceptance at [place]. Plan: REGGIE to follow for ongoing coordination with [facility] for discharge planning when pt medically stable for discharge. Cassidy Abad, DIRECTOR TELEVISION
--- NOTE | 2019-08-16 12:27 | PT.IPTN ---
Current Diagnoses Cellulitis of right lower limb (08/01/19) Surgery Performed Operation Date: 08/05/19 13:00 Actual Procedures p Incision and Drainage Ankle(Right) - Anjel Rm MD Operation Date: 08/07/19 09:30 Actual Procedures p Incision and Debridement Foot, Arthrotomy(Right) - Anjel Rm MD Operation Date: 08/10/19 16:15 Actual Procedures p Incision and Drainage Foot w/ woundvac application(Right) - Annalisa Martinez MD Physical Therapy Treatment Note M2 PT-IP Current Condition Start: 08/09/19 08:22 Freq: NEEDED Status: Active Protocol: Document 08/11/19 11:38 AB (Rec: 08/11/19 14:19 AB [id number]) Physical Therapy Current Condition Current Condition Evaluation Date 08/11/19 Treatment Diagnosis GLF; R ankle abscess s/p I&D; difficulty in walking Onset Date 08/01/19 Precautions Other Precautions falls Weight Bearing Status Weight Bearing Status Non-Weight Bearing Allowed Weight Bearing Amount (enter % RLE NWB or #) (%) M3 PT-IP Subjective Start: 08/09/19 08:22 Freq: NEEDED Status: Active Protocol: Document 08/16/19 11:36 MB (Rec: 08/16/19 12:27 MB [id number]) Subjective Physical Therapy Visit Type Type Treatment Note Visit Start Time 11:36 Visit Stop Time 12:20 Total Visit Minutes 44 Number of LAND MANAGEMENT SUPERVISOR Visits 0 Physical Therapy Visit Comments Patient Comments Pt is agreeable to PT Therapy Pain Assessment Pain When Pain Assessed At Rest Pain Present Pain Present Pain Reported Location Right Foot Intensity 2 Description Throbbing Pain Management Techniques Elevation,Re-positioning M4 PT-IP Mobility and Gait Start: 08/09/19 08:22 Freq: NEEDED Status: Active Protocol: Document 08/16/19 11:36 MB (Rec: 08/16/19 12:27 MB [id number]) PT-Transfer Assessment Comments Mobility Comments Pt up in chair with mago lift before PT arrival. Worked on weight shift up onto left foot with OT guarding right foot and PT providing asst at gait belt. Pt pushing up through right forearm and left hand. x5 reps weight shift. Pt then pushes self back in chair with cues and increased time. M5 PT-IP Objective Assessments Start: 08/09/19 08:22 Freq: NEEDED Status: Active Protocol: Document 08/11/19 11:38 AB (Rec: 08/11/19 14:19 AB [id number]) Orientation Orientation/Cognition Level of Alertness Alert Orientation Name Safety Awareness Decreased Safety Awareness Gross Range of Motion Lower Extremity ROM Assessment Within Functional Limits Strength Lower Extremity Strength Assessment Bilaterally Impaired Hip 3+/5 Knee 3+/5 M6 PT-IP Treatment Start: 08/09/19 08:22 Freq: NEEDED Status: Active Protocol: Document 08/16/19 11:36 MB (Rec: 08/16/19 12:27 MB [id number]) Physical Therapy Treatment Other Treatments Other Treatment Performed 1 rep LAQ left leg with AP x5 reps and cues to lift thigh off the chair, cues to perform throughout the day to help with left quad strength, cues for right hip flexion x5. B shoulder abduction x5 reps, 2 sets, incentive spirometer use x5 reps, 2 sets. Scapular retraction with shoulder elevation and hands up over head x5 reps, 2 sets. Ed pt in pushed lip breathing. O2 sats on O2 increase 4% with exercises--from 91-95% M7 PT-IP Assessment and Plan Start: 08/09/19 08:22 Freq: NEEDED Status: Active Protocol: Document 08/16/19 11:36 MB (Rec: 08/16/19 12:27 MB [id number]) PT Summary Assessment and Plan Potential Rehabilitation Potential Fair Summary Impairments Pain,ROM,Strength,Balance, Coordination,Sensation, Cognition,Bed Mobility, Transfers,Gait,Activity Tolerance Progress Towards Goals Slow Progress due to Pain,Slow Progress due to Medical Issues,Slow Progress due to Activity Tolerance Assessment Summary Progress weight shifting onto left foot, UE exercises to promote UE strength for transfers, breathing exercises . Pt will benefit from continued acute PT and SNF rehab at discharge. Goals Bed Mobility Goal Moderate Assistance Transfer Goal Moderate Assistance,Front Wheeled Walker Gait Goal Moderate Assistance,Front Wheel Walker Gait Distance 15 Days to Meet Goals 10 Frequency of Treatment Frequency Of Treatment Once a Day Treatment Plan Physical Therapy Treatment Plan Bed Mobility Training,Transfer Training,Gait Training, Therapeutic Exercise,Balance Retraining,Post Op Education, Discharge Planning,Hot or Cold Pack,Neuromuscular Re-ed, Coordination Retraining,Manual Therapy Other Recommendations and Next Treatment ther ex for postural muscles, Focus BLE, transfers if able Recommendations To Nursing Amount of Assist Needed Mechanical Lift Discharge Recommendations PT Discharge Recommendations SNF Rehab Transportation Needs at Discharge Wheelchair/Cabulance
--- NOTE | 2019-08-16 12:57 | OT.IP.TRT ---
Current Diagnoses Cellulitis of right lower limb (08/01/19) Surgery Performed Operation Date: 08/05/19 13:00 Actual Procedures p Incision and Drainage Ankle(Right) - Anjel Rm MD Operation Date: 08/07/19 09:30 Actual Procedures p Incision and Debridement Foot, Arthrotomy(Right) - Anjel Rm MD Operation Date: 08/10/19 16:15 Actual Procedures p Incision and Drainage Foot w/ woundvac application(Right) - Annalisa Martinez MD Occupational Therapy Treatment Note M2 OT-IP Current Condition Start: 08/11/19 16:26 Freq: Status: Active Protocol: Document 08/11/19 14:00 [facility] (Rec: 08/11/19 16:42 [facility] [id number]) Occupational Therapy Current Condition Current Condition Evaluation Date 08/11/19 Treatment Diagnosis GLF,Right foot abscesses, s/p I and D Diagnosis Onset Date 08/01/19 Weight Bearing Status Weight Bearing Status Non-Weight Bearing Allowed Weight Bearing Amount (enter % NWB RLE or #) (%) M3 OT- IP Subjective and Pain Start: 08/11/19 16:26 Freq: Status: Active Protocol: Document 08/16/19 12:49 [facility] (Rec: 08/16/19 12:56 [facility] [id number]) OT- Subjective Occupational Therapy Visit Type Type Treatment Note Visit Start Time 11:43 Visit Stop Time 12:41 Total Visit Minutes 23 Notes Pt seen split session from [id number] and then [id number]. Pt seen with Pt for cotxt of partial stands, mainly weight bearing through LLE while use of BUE on the armrests of the recliner. Occupational Therapy Visit Comments Patient Comments Pt agreeable to try to do partial standing with PT and OT. Patient/Caregiver Goals To eventually be able to go home. OT Pain Assessment Pain When Pain Assessed At Rest Pain Present Pain Present Denied Pain M4 OT- IP ADL's Start: 08/11/19 16:26 Freq: Status: Active Protocol: Document 08/16/19 12:49 [facility] (Rec: 08/16/19 12:56 [facility] [id number]) OT ADL-Dressing General Eval Lower Body Dressing Ability Total Assistance M5 OT- IP IADL's Start: 08/11/19 16:26 Freq: Status: Active Protocol: Document 08/11/19 14:00 [facility] (Rec: 08/11/19 16:42 [facility] [id number]) OT-Instrumental Activities of Daily Living Home Safety Awareness Awareness of Need for Assistance at Home Good Awareness Ability to Problem Solve Emergency Able to Problem Solve Situations Home Safety Comments Pt able to answer all home safety questions with 100% accuracy. M6 OT- IP Functional Cognition Start: 08/11/19 16:26 Freq: Status: Active Protocol: Document 08/14/19 15:26 CGR (Rec: 08/14/19 15:33 CGR [id number]) Cognitive Factors Limiting Selfcare Function Cognitive Ability Level of Alertness Alert Patient Orientation Name,Age,Birthday,Month,Date, Year,Day of Week,Place, Situation Attention Span Ability Capable of Focused Attention, Capable of Sustained Attention Cognitive Tests SLUMS Pt participated in updated cog assessment. Pt scored 26/30 missing mostly number related items. This puts pt just below the normal rathings for the SLUMS assessment. OT- Vision and Hearing OT- Vision Assessment Vision Assessment Comments Pt having difficulty with depth perception and at times states seeing double. M7 OT- IP Mobility and Balance Start: 08/11/19 16:26 Freq: Status: Active Protocol: Document 08/16/19 12:49 [facility] (Rec: 08/16/19 12:56 [facility] [id number]) OT-Transfer Assessment Comments Mobility Comments Able to assist pt to do partial stand by assist to hold RLE up so not to put weight through her right foot and PT assist to come up and get weight through her left foot and left hand and right forerarms x5. OT- Gait Assessment Comments Gait Ability Comments NOt at this time, mainly due to pt is NWB RLE M8 OT- IP Objective Assessments Start: 08/11/19 16:26 Freq: Status: Active Protocol: Document 08/11/19 14:00 [facility] (Rec: 08/11/19 16:42 [facility] [id number]) OT Gross Range of Motion Upper Extremity Range of Motion Assessment Within Functional Limits OT Strength Comments Strength Comments BUE 4/5 M9 OT- IP Assessment and Plan Start: 08/11/19 16:26 Freq: Status: Active Protocol: Document 08/16/19 12:49 [facility] (Rec: 08/16/19 12:56 [facility] [id number]) OT Summary Assessment and Plan Potential Rehabilitation Potential Fair Analytic Complexity at Evaluation Low Summary OT Impairments Pain,Balance,Functional Cognition,Functional Mobility, Self-Feeding,Grooming,Dressing ,Toileting,Bathing,Toilet Transfers,Shower Transfers, Activity Tolerance Progress Towards Goals Slow Progress due to Medical Issues,Slow Progress due to Activity Tolerance Assessment Summary Pt motivated to get stronger and better. Educated pt on BUE exercises with therapband when not connected to the IV. Pt able to demonstrate good safety and awareness for theraband exercises at this time. Pt when medically stable will benefit form skilled rehab. Goals Self-Feeding Goal Independent Grooming Goal Independent Dressing Goal Independent Toileting Goal Independent Bathing Goal Independent Toilet Transfer Goal Independent Shower Transfer Goal Independent Patient/Caregiver Education Goal Demonstrate Post-Op Precautions Days to Meet Goals 41 Frequency of Treatment Frequency Of Treatment Once a Day Treatment Plan OT Treatment Plan ADL Training,Functional Cognition Training,Functional Mobility,Patient/Family Education,Discharge Planning Discharge Recommendations OT Discharge Recommendations SNF Rehab Home Equipment Needs defer to SNF Transportation Needs at Discharge Wheelchair/Cabulance,Stretcher /Ambulance
--- NOTE | 2019-08-16 16:28 | P.PN_ITS ---
Subjective Subjective Date Patient Seen: 08/16/19 Interval history: Leyda Nielsen is a 79-year-old female with a past medical history significant for morbid obesity, paroxysmal atrial fibrillation, diastolic CHF, chronic hypoxemic and hypercarbic respiratory failure secondary to OHS, JEANIE and COPD and 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 She remains admitted for severe right MSSA foot infection and bacteremia now status post I&D x 3 with wound VAC placement. The patient is resting in bedside chair comfortably. She denies pain in her right foot. She has mild edema on the dorsum of her foot and endorses pain with palpation in the middle of the dorsum of her foot but otherwise has numbness kassi rounding. Her Germán wrap has been taken down and her wound VAC in place with minimal sanguinous output. Her left hallux MTP joint continues to have very mild erythema but with minimal tenderness to palpation and no warmth. Orthopedic surgery planned for wound VAC dressing change today, however, due to it being a national holiday will likely happen tomorrow morning. She has no other complaints and denies headache, chest pain, shortness of breath, abdominal pain, nausea, vomiting, fever, chills, dysuria, diarrhea or constipation. Discussed possible LTAC at time of discharge (completed doc-to-doc yesterday and approved today) depending on amount of overall wound care and nursing needs for which the patient is agreeable. She is voiding and eliminating without difficulty. She is up with assistance and nonweightbearing on right lower extremity. Exam Vital Signs (past 8 hours): - 08/16/19 10:05 08/16/19 15:51 Temperature 97.8 F 98 F Pulse Rate 93 H 93 H Respiratory Rate 18 19 Blood Pressure 105/58 L 110/62 Pulse Oximetry 97 94 Fraction of Inspired Oxygen 0.25 Oxygen Delivery Method Nasal Cannula Oxygen Flow Rate 1 Narrative Exam Narrative: General: Elderly female lying in bed, in no acute distress, well-developed, well-nourished, alert and oriented, appropriately interactive. HEENT: Normocephalic, atraumatic. External ears without defect. Pupils equal, round, and reactive to light. Anicteric sclerae, moist conjunctivae, and no lid lag. Neck: Supple with full range of motion. No jugular venous distension. No lymphadenopathy or thyromegaly. Cardiovascular: Irregularly irregular without murmurs, rubs, or gallops appreciated. Pulmonary: Clear to auscultation bilaterally in anterior lung simons without crackles, wheezes, or rhonchi. Normal respiratory effort with no use of accessory muscles. Abdomen: Soft, obese, bowel sounds present, nontender, nondistended. Extremities: No clubbing or cyanosis. Mild pitting edema of bilateral lower extremities with germán wraps to mid pretibial area and requested these be length into knees. Scattered ecchymosis throughout upper and lower extremities. Right foot with wound VAC in place with minimal sanguineous drainage, mild edema of dorsum of foot with tenderness to palpation in mid dorsum of foot otherwise surrounding skin numb, and no longer significantly erythematous. Left hallux MTP joint with mild erythema and now no tenderness or warmth. Neurological: Cranial nerves grossly intact. Psychiatric: Normal mood and affect. Alert oriented x3. Objective Labs Result Diagrams: 08/16/19 05:00 08/15/19 05:35 Labs: Laboratory Results - last 24 hr 08/16/19 08/16/19 08/16/19 05:00 05:00 05:00 WBC 8.3 RBC 2.43 L Hgb 8.0 L Hct 23.6 L MCV 97.0 MCH 32.8 MCHC 33.8 RDW 16.0 H Plt Count 450 H Neut % (Auto) 76.2 H Lymph % (Auto) 13.3 L [place] % (Auto) 8.0 Eos % (Auto) 1.8 L Baso % (Auto) 0.7 Neut # (Auto) 6300 Lymph # (Auto) 1100 [place] # (Auto) 700 Eos # (Auto) 100 Baso # (Auto) 100 Magnesium 1.8 Procalcitonin < 0.05 Assessment & Plan Assessment & Plan narrative: Leyda Nielsen is a 79-year-old female with a past medical history significant for morbid obesity, paroxysmal atrial fibrillation, diastolic CHF, chronic hypoxemic and hypercarbic respiratory failure secondary to OHS, JEANIE and COPD and 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 She remains admitted for severe right MSSA foot infection and bacteremia now status post I&D x 3 with wound VAC placement. 1. Acute MSSA bacteremia, right foot cellulitis, multiple right foot abscesses and right ankle septic joint, status post I&D, present on admission. Active. -Blood cultures, wound culture and joint aspirate positive for MSSA on 08/01 and 08/02. Repeat blood cultures have no growth to date on 08/04 and 08/05. -Initial WBC 32.4 and trended down slowly and now normalized. Procalcitonin initially negative at 0.19 then peaked at 4.93 then trended down and negative. -Echocardiogram did not demonstrate any hemodynamically significant valvular abnormalities or obvious vegetation. -ESR was markedly elevated at > 140 and CRP highly elevated at 36.6. Repeat ESR and CRP trending down now 49 and 7.4 respectively and should be checked weekly to ensure adequate resolution of infection. -CT of the right lower extremity with contrast demonstrated subcutaneous edema of the right lower leg, small peripherally enhancing fluid collection within the medial aspect of the hindfoot probably at represents fluid within the tibialis posterior tendon sheath, suggestive of tenosynovitis. However, a small abscess cannot be completely excluded. No fractures. Moderate degenerative changes of the knee are not adequately characterized. -Discontinued vancomycin on 08/08 due to no evidence of MRSA. Continue cefazolin 2 g IV every 8 hours for MSSA and meropenem 1 g every 12 hours for possible mixed Gram-negative and anaerobic infection in addition to MSSA. -Continue pain control with tramadol 50-100 mg 4 times daily as needed for [id number] pain, hydrocodone 2.5-5 mg every 6 hours for moderate pain and Dilaudid 0.5-1 mg only as needed for wound VAC dressing changes. Continue gabapentin 300 mg twice daily for neuropathic pain. -Consulted orthopedic surgery, Dr. Rm and Dr. Martinez, who have performed I&D x3 and wound VAC placement. Most recent dressing change 08/11. Orthopedic surgery is very concerned for that the patient will require a [id number] amputation as her likelihood of healing is very low due to immunosuppression and severity of infection. They would like to further monitor her for 1 or 2 more dressing changes at minimum for continued improvement before possible discharge to LTAC or SNF. Plan for dressing change every 3-4 days. -Continue physical and occupational therapy evaluation and treatment. Patient is non-weightbearing on right lower extremity. 2. Possible gout exacerbation with hyperuricemia, present on admission. Active. -Uric acid was initially highly elevated at 12.9. Repeat uric acid down to 7.8. Patient has history of 1 previous gout attack but had not yet been started on uric acid lowering medication. -Patient likely had underlying gout attack that led to superimposed joint and foot infection. Two weeks prior to admission patient had several courses of prednisone. Avoided glucocorticoid initially due to MSSA bacteremia. However, patient had inflammation of left hallux on 08/12 and was started short prednisone taper completed today 08/15. -Will plan to start uric acid lowering medication prior to discharge. 3. Acute GI bleed, secondary to GI stress of hospitalization, not present on admission. Stable. -Patient had guaiac positive stools. Unclear if upper or lower GI bleed but given significant stress of hospitalization likely upper. -Eliquis discontinued on 08/10 for probable GI bleed with guaiac-positive stool. Restarted on 08/13 and continue Eliquis 5 mg twice daily as patient is high risk for DVT with immobilization and atrial fibrillation. -Received Protonix 80 mg IV x1 then switched to Protonix 40 mg twice daily. -H&H stable. Continue to monitor closely for signs of bleeding and H&H daily. Transfusion goal hemoglobin < 7.0. Consider general surgery consultation for endoscopy if hemoglobin continues to decline. 4. Acute on chronic normocytic anemia, present on admission. Stable. -Secondary to sepsis and infection, hemodilution from IV fluid resuscitation, acute blood loss from surgery and now probable GI bleed with guaiac positive stool. -Initial hemoglobin 8.8. Baseline hemoglobin 10-12. Patient has received a total of 4U PRBC. Patient has minimal sanguineous drainage of right foot in wound VAC and hemoglobin stable. Transfusion goal hemoglobin < 7.0. -Continue to monitor H&H daily. 5. Chronic hypoxemic and hypercarbic respiratory failure, present on admission. Acute portion resolved. -Chronic respiratory failure multifactorial secondary to obesity hypoventilation syndrome, JEAINE, and COPD. -Patient was severely hypercarbic after initial I&D likely due to hypoventilation versus over oxygenation and then has had intermittent hypoxemia on trilogy for unclear reasons and possibly due to malfunction. Farrukh evaluated and reset settings of trilogy on 08/09/2019. -Does not represent COPD exacerbation. -Continue home Spiriva and Symbicort with hospital formulary medications. -Continue supplemental oxygen as necessary to maintain oxygen saturations 88- 92%. Continue trilogy at all times while sleeping or napping. Avoid excessive oxygenation as this will worsen hypercarbia. 6. Acute kidney injury on CKD stage 3, present on admission. Acute kidney injury resolved. -Initially secondary to sepsis, infection and hypermetabolic state then later hypotension intra and postoperatively and NSAIDs. -Initial creatinine 1.39 and trended up to 1.82. Creatinine has normalized and is stable. Baseline creatinine is unknown. -Continued IV fluids until adequately hydrated then discontinued. -Avoid nephrotoxic agents. -Continue to monitor renal function periodically. 7. Acute metabolic encephalopathy, present on admission. Resolved. -Continue to treat infection as above. She may also suffer from intermittent hypercarbia given her significant hypercarbic respiratory failure. She may have also be suffering from some hospital delirium given her current length of stay. -CT brain without contrast did not demonstrate any acute intracranial abnormalities. -Discontinued Seroquel 25 mg daily at bedtime on 08/09/2019 as patient has been mentating clearly and this was started earlier in this admission for acute delirium. -Nursing staff to try to keep patient awake and stimulated throughout day and allow uninterrupted sleep with minimal interruptions at night. 8. Acute sepsis, present on admission. Resolved. -Patient presented with leukocytosis and tachycardia with evidence of organ dysfunction including metabolic encephalopathy and DOM with staph bacteremia from source right lower extremity cellulitis, bilateral abscesses and septic joint. -Early goal directed therapy met including: IV antibiotics and IV fluid res uscitation. 9. Paroxysmal atrial fibrillation on Eliquis, chronic, present on admission. Stable. -Eliquis discontinued on 08/10 for probable GI bleed with guaiac-positive stool. Restarted and continue Eliquis 5 mg twice daily as patient is high risk for DVT with immobilization and atrial fibrillation. Continue to monitor H&H closely. Blood counts stable and continue PPI with Protonix 40 mg twice daily. 10. Diastolic congestive heart failure, chronic, present on admission. Stable. -Does not represent CHF exacerbation. -Held metolazone and spironolactone. Previous diuresis have been ineffective at high doses and she he was to follow up with nephrology upon discharge in May which is unclear if pursued. -Continue furosemide 20 mg IV daily to keep patient euvolemic while hospitalized. -Continue strict I&Os and daily weights. -Repeated echocardiogram as above to assess for valvular vegetations. 11. Morbid obesity, chronic, present on admission. Stable. -BMI 46.2. -Patient has increased risk of complications due to her morbid obesity. Counseled patient on lifestyle modification including diet and exercise. -Consulted dietitian and we appreciate her time and recommendations. 12. Psoriasis on Humira, chronic, present on admission. Stable. -Patient receives Humira injections every 2 weeks, with last dose approximately week and half prior to admission. She reports good response of plaque psoriasis to Humira. -Discontinued Humira and will have patient follow-up with her animal caregiver. Code status: Full Code. Patient refuses further consultation with palliative care. DVT prophylaxis: Eliquis Disposition: Patient remains hospitalized for severe right foot infection and plan for LTAC at [place] for wound care and rehabilitation when patient is deemed medically ready by Orthopedic surgery for discharge. Quality VTE Deep Vein Thrombosis/Pulmonary Embolism Present on Admission: No
[2019-08-16] MEDS: MONTELUKAST 10 MG TABLET PO (17:06)
[2019-08-16] MEDS: HYDROMORPHONE 2 MG INJ 1 MG IV (18:25)
--- NOTE | 2019-08-16 19:02 | P.PN_ITS ---
Subjective Subjective Date Patient Seen: 08/16/19 Time Patient Seen: 19:02 Interval history: Pain is well controlled. Improving breathing today. Off of oxygen for a couple hours this am. Sitting comfortably in chair with nasal cannula. Foot less painful Exam Vital Signs (past 8 hours): - 08/16/19 15:51 Temperature 98 F Pulse Rate 93 H Respiratory Rate 19 Blood Pressure 110/62 Pulse Oximetry 94 Fraction of Inspired Oxygen 0.25 Oxygen Delivery Method Nasal Cannula Oxygen Flow Rate 1 Narrative Exam Narrative: Wound vac removed at bedside. Medial and lateral wound beds appear viable. No necrotic tissue, no purulence. Sensation diminished over lateral aspect of forefoot. Able to wiggle toes and ankle. Minimal pain with ROM of the ankle. Edema in foot still present, although improving Objective Labs Result Diagrams: 08/16/19 05:00 08/15/19 05:35 Labs: Laboratory Results - last 24 hr 08/16/19 08/16/19 08/16/19 05:00 05:00 05:00 WBC 8.3 RBC 2.43 L Hgb 8.0 L Hct 23.6 L MCV 97.0 MCH 32.8 MCHC 33.8 RDW 16.0 H Plt Count 450 H Neut % (Auto) 76.2 H Lymph % (Auto) 13.3 L [place] % (Auto) 8.0 Eos % (Auto) 1.8 L Baso % (Auto) 0.7 Neut # (Auto) 6300 Lymph # (Auto) 1100 [place] # (Auto) 700 Eos # (Auto) 100 Baso # (Auto) 100 Magnesium 1.8 Procalcitonin < 0.05 Assessment & Plan Assessment & Plan narrative: Patient is a 79 yo F now s/p I&D and placement of wound vac. 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 She has a history of gout and was treated with prednisone for several weeks. She subsequently had worsening symptoms and presented to the ED. She remains admitted for MSSA bacteremia, and multiple I&Ds with orthopedic surgery of her RLE. She appears to be doing well at this time. Foot abscess/septic ankle - continue abx - wound vac changed bedside afternoon of 08/15 - AVOID steroids - trend infectious markers - next wound vac change 3 days - will continue to monitory closely - NWB RLE Time Spent With Patient Time with patient: Greater than 35 minutes Quality VTE Deep Vein Thrombosis/Pulmonary Embolism Present on Admission: No
[2019-08-16] MEDS: MELATONIN 3 MG TABLET 6 MG PO (20:25)
[2019-08-16] MEDS: LATANOPROST 0.005% OPHTH 2.5 ML 1 DROPS EYE-BOTH (20:29)
[2019-08-17] MEDS: CEFAZOLIN 2 GM/100 ML FROZ.PIGGY IV ×2 (01:21→10:15)
[2019-08-17] MEDS: SODIUM CHLORIDE 0.9% FLUSH 10 ML IV (01:22)
[2019-08-17 01:37] VITALS: BP 133/58; PULSE 94; RESP 18; TEMP 36.6; O2SAT 97
[2019-08-17 05:36] LABS: Add Manual Diff / Slide Review NO; Basophils Absolute Auto 0 /uL (0-100); Basophils Percent Auto 0.7 % (0-2); Eosinophils Absolute Auto 200 /uL (0-450); Eosinophils Percent Auto 3.7 % (2-4); Hematocrit 23.8 % (36-46); Hemoglobin 7.8 g/dL (12.0-16.0); Lymphocytes Absolute Auto 1100 /uL (1100-4500); Lymphocytes Percent Auto 17.6 % (25-40); Mean Corpuscular HGB Conc 32.9 % (30-36); Mean Corpuscular Hemoglobin 31.7 PG (26-34); Mean Corpuscular Volume 96.4 fL (80-100); Monocytes Absolute Auto 700 /uL (0-900); Monocytes Percent Auto 11.1 % (3-14); Neutrophils Absolute Auto 4000 /uL (1500-7000); Neutrophils Percent Auto 66.9 % (50-75); Platelet Count 431 X10^3/uL (150-400); Red Blood Cell Count 2.46 X10^6/uL (4.0-5.2); Red Cell Distribution Width 15.8 % (11.6-14.8)
[2019-08-17 05:47] LABS: Alanine Aminotransferase 4 IU/L (<35); Albumin 2.5 g/dL (3.5-5.0); Albumin Globulin Ratio 0.8 (1.0-2.8); Alkaline Phosphatase 128 U/L (38-126); Aspartate Aminotransferase 22 IU/L (14-36); BUN Creatinine Ratio 47.9 (6-22); Bilirubin Total 0.3 mg/dL (0.2-1.3); Blood Urea Nitrogen 34 mg/dL (7-17); Calcium 9.6 mg/dL (8.4-10.2); Chloride 93 mmol/L (98-107); Estimated Glomerular Filt Rate > 60.0 mL/min (>60); Globulin 3.3 g/dL (1.7-4.1); Glucose 81 mg/dL (80-110); HEMOLYSIS < 15 (0-50); Magnesium 1.8 mg/dL (1.6-2.3); Potassium 4.1 mmol/L (3.4-5.1); Sodium 137 mmol/L (137-145); Total Protein 5.8 g/dL (6.3-8.2)
[2019-08-17 05:53] LABS: Carbon Dioxide 38 mmol/L (22-32)
[2019-08-17 05:54] LABS: Uric Acid 6.6 mg/dL (2.5-6.2)
[2019-08-17 06:03] LABS: Procalcitonin < 0.05 ng/mL (<0.5)
[2019-08-17] MEDS: PANTOPRAZOLE 40 MG TABLET PO (06:14)
--- NOTE | 2019-08-17 06:22 | PC.NURSE ---
Cyberathlete Note-Patient has been A/Ox3, cooperative, and attempting to do for herself as much as physically able. Slept with her own trilogy on [id number], otherwise is on 2L NC, VSS, denies pain. Wound vac patent draining scant sangu fluid.
[2019-08-17 08:00] VITALS: BP 111/55; PULSE 92; RESP 20; TEMP 37.3; O2SAT 96
--- NOTE | 2019-08-17 08:03 | P.PN_ITS ---
Subjective Subjective Date Patient Seen: 08/17/19 Time Patient Seen: 08:03 Interval history: Wound vac holding suction. Serous output. Patient states she is feeling good. Breathing is improved. Minimal pain in foot. Exam Vital Signs (past 8 hours): - 08/17/19 01:37 Temperature 97.8 F Pulse Rate 94 H Respiratory Rate 18 Blood Pressure 133/58 L Pulse Oximetry 97 Fraction of Inspired Oxygen 0.25 Oxygen Delivery Method Nasal Cannula,BiPAP Oxygen Flow Rate 2 Narrative Exam Narrative: Wound vac holding suction. Sensation diminished over lateral aspect of forefoot. Able to wiggle toes and ankle. Minimal pain with ROM of the ankle. Edema in foot still present, although improving Objective Labs Result Diagrams: 08/17/19 05:15 08/17/19 05:15 Labs: Laboratory Results - last 24 hr 08/17/19 08/17/19 08/17/19 05:15 05:15 05:15 WBC 6.0 RBC 2.46 L Hgb 7.8 L Hct 23.8 L MCV 96.4 MCH 31.7 MCHC 32.9 RDW 15.8 H Plt Count 431 H Neut % (Auto) 66.9 Lymph % (Auto) 17.6 L [place] % (Auto) 11.1 Eos % (Auto) 3.7 Baso % (Auto) 0.7 Neut # (Auto) 4000 Lymph # (Auto) 1100 [place] # (Auto) 700 Eos # (Auto) 200 Baso # (Auto) 0 Sodium 137 Potassium 4.1 Chloride 93 L Carbon Dioxide 38 H BUN 34 H Creatinine 0.71 Estimated GFR > 60.0 BUN/Creatinine Ratio 47.9 H Glucose 81 Uric Acid Calcium 9.6 Magnesium 1.8 Total Bilirubin 0.3 AST 22 ALT 4 Alkaline Phosphatase 128 H Total Protein 5.8 L Albumin 2.5 L Globulin 3.3 Albumin/Globulin Ratio 0.8 L Procalcitonin < 0.05 08/17/19 05:15 WBC RBC Hgb Hct MCV MCH MCHC RDW Plt Count Neut % (Auto) Lymph % (Auto) [place] % (Auto) Eos % (Auto) Baso % (Auto) Neut # (Auto) Lymph # (Auto) [place] # (Auto) Eos # (Auto) Baso # (Auto) Sodium Potassium Chloride Carbon Dioxide BUN Creatinine Estimated GFR BUN/Creatinine Ratio Glucose Uric Acid 6.6 H Calcium Magnesium Total Bilirubin AST ALT Alkaline Phosphatase Total Protein Albumin Globulin Albumin/Globulin Ratio Procalcitonin Assessment & Plan Assessment & Plan narrative: Patient is a 79 yo F now s/p I&D and placement of wound vac. 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 She has a history of gout and was treated with prednisone for several weeks. She subsequently had worsening symptoms and presented to the ED. She remains admitted for MSSA bacteremia, and multiple I&Ds with orthopedic surgery of her RLE. She appears to be doing well at this time. Foot abscess/septic ankle - continue abx - wound vac changed bedside afternoon of 08/15 - AVOID steroids - trend infectious markers - next wound vac change 2-3 days - will continue to monitory closely - NWB RLE Time Spent With Patient Time with patient: less than 15 minutes Quality VTE Deep Vein Thrombosis/Pulmonary Embolism Present on Admission: No
[2019-08-17] MEDS: MEROPENEM 1 GM/50 ML PIGGYBACK IV (08:56)
[2019-08-17] MEDS: buPROPion XL 150 MG TAB PO (08:58)
[2019-08-17] MEDS: APIXABAN 5 MG TABLET PO (08:58)
[2019-08-17] MEDS: GABAPENTIN 300 MG CAPSULE PO (08:59)
[2019-08-17] MEDS: FUROSEMIDE 20 MG/2 ML VIAL IV (08:59)
[2019-08-17] MEDS: FLUoxetine 20 MG CAPSULE PO (08:59)
[2019-08-17] MEDS: DOCUSATE 100 MG CAPSULE PO (08:59)
[2019-08-17] MEDS: polyethylene glycoL 3350 17 GM POWD.PACK PO (09:00)
[2019-08-17] MEDS: NYSTATIN POWDER 15GM 1 APPLIC TOP (09:00)
[2019-08-17] MEDS: TRAMADOL 50 MG TABLET 100 MG PO (10:17)
--- NOTE | 2019-08-17 10:22 | OT.IP.TRT ---
Current Diagnoses Cellulitis of right lower limb (08/01/19) Surgery Performed Operation Date: 08/05/19 13:00 Actual Procedures p Incision and Drainage Ankle(Right) - Anjel Rm MD Operation Date: 08/07/19 09:30 Actual Procedures p Incision and Debridement Foot, Arthrotomy(Right) - Anjel Rm MD Operation Date: 08/10/19 16:15 Actual Procedures p Incision and Drainage Foot w/ woundvac application(Right) - Annalisa Martinez MD Occupational Therapy Treatment Note M2 OT-IP Current Condition Start: 08/11/19 16:26 Freq: Status: Active Protocol: Document 08/11/19 14:00 [facility] (Rec: 08/11/19 16:42 [facility] [id number]) Occupational Therapy Current Condition Current Condition Evaluation Date 08/11/19 Treatment Diagnosis GLF,Right foot abscesses, s/p I and D Diagnosis Onset Date 08/01/19 Weight Bearing Status Weight Bearing Status Non-Weight Bearing Allowed Weight Bearing Amount (enter % NWB RLE or #) (%) M3 OT- IP Subjective and Pain Start: 08/11/19 16:26 Freq: Status: Active Protocol: Document 08/17/19 09:59 [facility] (Rec: 08/17/19 13:05 [facility] [id number]) OT- Subjective Occupational Therapy Visit Type Type Treatment Note Visit Start Time 09:59 Visit Stop Time 10:22 Total Visit Minutes 23 Occupational Therapy Visit Comments Patient Comments Pt agreeable to get up. Patient/Caregiver Goals TO get stronger and be able to care for herself. OT Pain Assessment Pain When Pain Assessed At Rest Pain Present Pain Present Denied Pain M4 OT- IP ADL's Start: 08/11/19 16:26 Freq: Status: Active Protocol: Document 08/17/19 09:59 [facility] (Rec: 08/17/19 13:05 [facility] [id number]) OT ADL-Dressing General Eval Lower Body Dressing Ability Total Assistance OT ADL-Toileting Comments OT Toileting Comments Case M5 OT- IP IADL's Start: 08/11/19 16:26 Freq: Status: Active Protocol: Document 08/11/19 14:00 [facility] (Rec: 08/11/19 16:42 [facility] [id number]) OT-Instrumental Activities of Daily Living Home Safety Awareness Awareness of Need for Assistance at Home Good Awareness Ability to Problem Solve Emergency Able to Problem Solve Situations Home Safety Comments Pt able to answer all home safety questions with 100% accuracy. M6 OT- IP Functional Cognition Start: 08/11/19 16:26 Freq: Status: Active Protocol: Document 08/17/19 09:59 [facility] (Rec: 08/17/19 13:05 [facility] [id number]) OT- Vision and Hearing OT- Vision Assessment Vision Assessment Comments Pt cognition at baseline with no deficits noted now. M7 OT- IP Mobility and Balance Start: 08/11/19 16:26 Freq: Status: Active Protocol: Document 08/17/19 09:59 [facility] (Rec: 08/17/19 13:05 [facility] [id number]) OT- Bed Mobility Assessment Supine to Sit Supine to Sit Assist Maximum Assistance,1 Person Assistance Scooting Scooting to Edge of Bed Moderate Assistance,2 Person Assistance OT-Transfer Assessment Sit to and From Stand Sit to and from Stand Maximum Assistance,2 Person Assistance,Use of Upper Extremities Comments Mobility Comments MAX A X 1 mainly to get from off her left hip to upright position, MODA X 2 to scoot forwards on the bed and able to stand with MAX AX 2-3 with FWW. Pt just resting the weight on her right foot on the floor x2. Pt tend assisted to the recliner with mago lift. M8 OT- IP Objective Assessments Start: 08/11/19 16:26 Freq: Status: Active Protocol: Document 08/11/19 14:00 [facility] (Rec: 08/11/19 16:42 [facility] [id number]) OT Gross Range of Motion Upper Extremity Range of Motion Assessment Within Functional Limits OT Strength Comments Strength Comments BUE 4/5 M9 OT- IP Assessment and Plan Start: 08/11/19 16:26 Freq: Status: Active Protocol: Document 08/17/19 09:59 [facility] (Rec: 08/17/19 13:05 [facility] [id number]) OT Summary Assessment and Plan Potential Rehabilitation Potential Good Analytic Complexity at Evaluation Low Summary OT Impairments Pain,Balance,Functional Mobility,Grooming,Dressing, Toileting,Bathing,Toilet Transfers,Shower Transfers, Activity Tolerance Progress Towards Goals Progressing Toward Goals Assessment Summary Pt able to come to stand today x2 with MAX X 2-3 with FWW form the high hospital bed. Pt will benefit from skilled rehab to continue to work towards prior independence with Adl and functional mobility needs. Goals Self-Feeding Goal Independent Grooming Goal Independent Dressing Goal Independent Toileting Goal Independent Bathing Goal Independent Toilet Transfer Goal Independent Shower Transfer Goal Independent Days to Meet Goals 40 Frequency of Treatment Frequency Of Treatment Once a Day Treatment Plan OT Treatment Plan ADL Training,Functional Mobility,Patient/Family Education,Discharge Planning Discharge Recommendations OT Discharge Recommendations SNF Rehab Home Equipment Needs defer to SNF Transportation Needs at Discharge Wheelchair/Cabulance
--- NOTE | 2019-08-17 10:51 | PT.IPTN ---
Current Diagnoses Cellulitis of right lower limb (08/01/19) Surgery Performed Operation Date: 08/05/19 13:00 Actual Procedures p Incision and Drainage Ankle(Right) - Anjel Rm MD Operation Date: 08/07/19 09:30 Actual Procedures p Incision and Debridement Foot, Arthrotomy(Right) - Anjel Rm MD Operation Date: 08/10/19 16:15 Actual Procedures p Incision and Drainage Foot w/ woundvac application(Right) - Annalisa Martinez MD Physical Therapy Treatment Note M2 PT-IP Current Condition Start: 08/09/19 08:22 Freq: NEEDED Status: Active Protocol: Document 08/11/19 11:38 AB (Rec: 08/11/19 14:19 AB [id number]) Physical Therapy Current Condition Current Condition Evaluation Date 08/11/19 Treatment Diagnosis GLF; R ankle abscess s/p I&D; difficulty in walking Onset Date 08/01/19 Precautions Other Precautions falls Weight Bearing Status Weight Bearing Status Non-Weight Bearing Allowed Weight Bearing Amount (enter % RLE NWB or #) (%) M3 PT-IP Subjective Start: 08/09/19 08:22 Freq: NEEDED Status: Active Protocol: Document 08/17/19 10:27 AW (Rec: 08/17/19 10:51 AW [id number]) Subjective Physical Therapy Visit Type Type Treatment Note Visit Start Time 10:00 Visit Stop Time 10:22 Total Visit Minutes 22 Notes Co-tx with OT Physical Therapy Visit Comments Patient Comments I've been using the red theraband Therapy Pain Assessment Pain When Pain Assessed During Mobility Pain Present Pain Present Pain Reported Location Right Foot Scale Used not quantified Pain Behaviors Facial Grimacing,Wincing Pain Management Techniques Distraction,Elevation,Re- positioning,Timing of Activity with Medications M4 PT-IP Mobility and Gait Start: 08/09/19 08:22 Freq: NEEDED Status: Active Protocol: Document 08/17/19 10:27 AW (Rec: 08/17/19 10:51 AW [id number]) PT-Bed Mobility Assessment Supine to Sit Supine to Sit Maximum Assistance,1 Person Assistance,Head of Bed Elevated,Bedrails Scooting Scooting to Edge of Bed Moderate Assistance PT-Transfer Assessment Sit to and From Stand Sit to and from Stand Maximum Assistance,2 Person Assistance,Use of Upper Extremities Equipment Transfer Assistive Device Gait Belt,Front Wheeled Walker Orthotic/Prosthetic Devices or Brace: No Transfers Transfer Destination Chair Transfer Technique Mechanical Lift Transfer Ability Level of Assist Maximum Assistance,2 Person Assistance Comments Mobility Comments Pt sitting up in bed upon PT/ OT arrival, alert and willing to participate with therapy. With HOB elevated ~35 degrees, pt swung her legs toward EOB on her right side and then was left leaning against HOB. She was unable to right her trunk without therapist assist and required mod A x 2 to scoot toward EOB. RN was called in to stabilize the walker for standing attempts. With bed flattened and raised, pt stood x 2 with max A x 2-3 using her left leg and RLE for touchdown WB on her heel. She fatigued quickly, needing to sit after <10 seconds each rep . Pt then began to complain of throbbing pain in her right foot, so sat EOB and was transferred to chair via mechanical lift. She was positioned in the chair with call light and all needs within reach. SpO2 maintained 94-96% throughout treatment on room air. Gait Assessment Comments Gait Comments Pt unable PT-Balance Assessment Sitting Balance and Reactions Static Sitting Balance Ability Good Dynamic Sitting Balance Ability Fair Standing Balance and Reactions Static Standing Balance Ability Poor Dynamic Standing Balance Ability Poor M5 PT-IP Objective Assessments Start: 08/09/19 08:22 Freq: NEEDED Status: Active Protocol: Document 08/11/19 11:38 AB (Rec: 08/11/19 14:19 AB [id number]) Orientation Orientation/Cognition Level of Alertness Alert Orientation Name Safety Awareness Decreased Safety Awareness Gross Range of Motion Lower Extremity ROM Assessment Within Functional Limits Strength Lower Extremity Strength Assessment Bilaterally Impaired Hip 3+/5 Knee 3+/5 M6 PT-IP Treatment Start: 08/09/19 08:22 Freq: NEEDED Status: Active Protocol: Document 08/17/19 10:27 AW (Rec: 08/17/19 10:51 AW [id number]) Physical Therapy Treatment Education Education Provided Weight Bearing Status,Safety M7 PT-IP Assessment and Plan Start: 08/09/19 08:22 Freq: NEEDED Status: Active Protocol: Document 08/17/19 10:27 AW (Rec: 08/17/19 10:51 AW [id number]) PT Summary Assessment and Plan Potential Rehabilitation Potential Fair Summary Impairments Pain,ROM,Strength,Balance, Coordination,Sensation, Cognition,Bed Mobility, Transfers,Gait,Activity Tolerance Progress Towards Goals Slow Progress due to Pain,Slow Progress due to Medical Issues,Slow Progress due to Activity Tolerance Assessment Summary Pt able to progress weightbearing on LLE but unable to maintain NWB RLE during standing attempts. PT will continue to follow this patient and recommends SNF rehab at discharge. Goals Bed Mobility Goal Moderate Assistance Transfer Goal Moderate Assistance,Front Wheeled Walker Gait Goal Moderate Assistance,Front Wheel Walker Gait Distance 15 Days to Meet Goals 10 Frequency of Treatment Frequency Of Treatment Once a Day Treatment Plan Physical Therapy Treatment Plan Bed Mobility Training,Transfer Training,Gait Training, Therapeutic Exercise,Balance Retraining,Post Op Education, Discharge Planning,Hot or Cold Pack,Neuromuscular Re-ed, Coordination Retraining,Manual Therapy Recommendations To Nursing Amount of Assist Needed 2 Person Assist Discharge Recommendations PT Discharge Recommendations SNF Rehab Transportation Needs at Discharge Wheelchair/Cabulance
--- NOTE | 2019-08-17 10:58 | PM.DS.1 ---
History of Present Illness History of Present Illness Date Patient Seen: 08/02/19 Chief complaint: GLF Narrative: Written by Reina CARSON: Leyda Nielsen is a 79-year-old oxygen-dependent female with paroxysmal atrial fibrillation, chronic CHF, COPD and plaque psoriasis who came into the emergency department with a complaint of a gout attack of her right foot and ankle. She denies fevers sweats or chills. She is unable to bear weight on it. She actually has some new neurological symptoms of a ?intention tremor? that worsens with voluntary movement. For example her leg will give out on her, today she was able to eat without repeatedly dropping her food because she was shaking so much. She denies chest pain, she has chronic shortness of breath, denies nausea vomiting, abdominal pain, dysuria, diarrhea or constipation. Orthopedics was asked to see the patient by the ED with the possibility of performing a joint tap. Due to the patient's cutaneous erythema, surgery was reluctant to possibly introduce a cellulitis into the patient's joint. Patient does have an elevated uric acid as well as ESR and CRP. Her white count is 32.4. She is on that the property management assistant of a prednisone taper she was put on for a gout attack at [facility] on July 21. In May of this year she was admitted for a suspected CHF exacerbation where she underwent an echocardiogram as well as a renal ultrasound. The echo indicated a normal ejection fraction with thickening of the left ventricle and a lowered pulmonary pressure. Renal ultrasound did not indicate structural renal disease but possible medical renal disease. Discharge Providers Provider Date of admission: 08/01/19 23:57 Discharge Date: 08/17/19 Primary care physician: Josue Menchaca DO Consults: 08/01/19 23:48 Consult to Orthopedic Surgery Stat Comment: Consulting Provider: Anjel Rm Reason for consultation: cellulitis vs gout Has provider been notified: Yes 08/02/19 00:46 Consult to Physician Routine Comment: Consulting Provider: Anjel Rm Reason for consultation: Septic vs Gout left ankle Has provider been notified: Yes 08/04/19 09:43 Consult to Occupational Therapy Evaluate & Treat Comment: Physician Instructions: Evaluate and treat Consult to Physical Therapy Evaluate & Treat Comment: Physician Instructions: Evaluate and Treat 08/04/19 12:57 Consult to Respiratory Therapy Evaluate & Treat Comment: Trilogy at all times while sleeping or napping Physician Instructions: Evaluate and treat 08/06/19 11:18 Consult to Dietitian, Adult Routine Comment: Reason For Exam: post op wound vac 08/08/19 14:47 Consult to Occupational Therapy Evaluate & Treat Comment: Physician Instructions: Evaluate and treat Consult to Physical Therapy Evaluate & Treat Comment: Physician Instructions: Evaluate and Treat 08/08/19 17:28 Consult to Dietitian, Adult Routine Comment: pt is not taking much in at meals 10% or so Reason For Exam: Poor po intake 08/10/19 15:26 Consult to Palliative Care Urgent Comment: Consulting Provider: Khadra Salmeron 08/10/19 15:32 Consult to Palliative Care Routine Comment: multiple chronic diseases, MSSA bacteremia Consulting Provider: Khadra Salmeron Discharge provider: Candice Corbett DO Summary Hospital Course Discharge Diagnosis: 1. Acute MSSA bacteremia, right foot cellulitis, multiple right foot abscesses and right ankle septic joint, status post I&D, present on admission. Resolving. 2. Possible gout exacerbation with hyperuricemia, present on admission. Acute gout exacerbation resolved and hyperuricemia resolving. 3. Acute GI bleed, secondary to GI stress of hospitalization, not present on admission. Resolved. 4. Acute on chronic normocytic anemia, present on admission. Acute portion resolved. 5. Acute on chronic hypoxemic and hypercarbic respiratory failure, present on admission. Acute portion resolved. 6. Acute kidney injury, present on admission. Resolved. 7. Acute metabolic encephalopathy, present on admission. Resolved. 8. Acute sepsis, present on admission. Resolved. 9. Paroxysmal atrial fibrillation on Eliquis, chronic, present on admission. Stable. 10. Diastolic congestive heart failure, chronic, present on admission. Stable. 11. Morbid obesity, chronic, present on admission. Stable. 12. Psoriasis on Humira, chronic, present on admission. Stable. Hospital Course: Leyda Nielsen is a 79-year-old female with a past medical history significant for morbid obesity, paroxysmal atrial fibrillation, diastolic CHF, chronic hypoxemic and hypercarbic respiratory failure secondary to OHS, JEANIE and COPD and 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 She remains admitted for severe right MSSA foot infection and bacteremia now status post I&D x 3 with wound VAC placement. 1. Acute MSSA bacteremia, right foot cellulitis, multiple right foot abscesses and right ankle septic joint, status post I&D, present on admission. Resolving. -Blood cultures, wound culture and joint aspirate positive for MSSA on 08/01 and 08/02. Repeat blood cultures have no growth to date on 08/04 and 08/05. -Initial WBC 32.4 and trended down slowly and now normalized. Procalcitonin initially negative at 0.19 then peaked at 4.93 then trended down and negative. -Echocardiogram did not demonstrate any hemodynamically significant valvular abnormalities or obvious vegetation. -ESR was markedly elevated at > 140 and CRP highly elevated at 36.6. Repeat ESR and CRP trending down now 49 and 7.4 respectively and should be checked weekly to ensure adequate resolution of infection. -CT of the right lower extremity with contrast demonstrated subcutaneous edema of the right lower leg, small peripherally enhancing fluid collection within the medial aspect of the hindfoot probably at represents fluid within the tibialis posterior tendon sheath, suggestive of tenosynovitis. However, a small abscess cannot be completely excluded. No fractures. Moderate degenerative changes of the knee are not adequately characterized. -Continue pain control with tramadol 50-100 mg 4 times daily as needed for [id number] pain, hydrocodone 2.5-5 mg every 6 hours for moderate pain and Dilaudid 0.5-1 mg only as needed for wound VAC dressing changes. Continue gabapentin 300 mg twice daily for neuropathic pain. -Consulted orthopedic surgery, Dr. Rm and Dr. Martinez, who have performed I&D x3 and wound VAC placement. Most recent dressing change 08/15. Orthopedic surgery was initially very concerned that the patient would require a [id number] amputation as her likelihood of healing was very low due to severe immunosuppression and the severity of infection but the patient continued to slowly improve after I&D x 3 and wound VAC. Continue wound VAC dressing changes every 3-4 days. Patient has 2 wounds on dorsum of foot with 2 nylon sutures that will need to be removed in 1 week. Orthopedic surgery recommending at least 1 week of additional IV antibiotics then consider switching to oral prophylactic antibiotic while wound VAC in place. Consider ID consult if available. Continue monitoring CRP and ESR for infection resolution as above. Follow-up with orthopedic surgeon, Dr. Rm, in 2 weeks. -Continued physical and occupational therapy evaluation and treatment. Patient is non-weightbearing on right lower extremity. 2. Possible gout exacerbation with hyperuricemia, present on admission. Acute gout exacerbation resolved and hyperuricemia resolving. -Uric acid was initially highly elevated at 12.9. Repeat uric acid down to 6.6. Patient has history of 1 previous gout attack but had not yet been started on uric acid lowering medication. -Patient likely had underlying gout attack that led to superimposed joint and foot infection. Two weeks prior to admission patient had several courses of prednisone. Avoided glucocorticoid initially due to MSSA bacteremia. However, patient had inflammation of left hallux on 08/13/2019 and was started on a short prednisone taper completed on 08/16/2019. -Started allopurinol 200 mg daily today 08/17/2019. 3. Acute GI bleed, secondary to GI stress of hospitalization, not present on admission. Resolved. -Patient had guaiac positive stools. Unclear if upper or lower GI bleed but given significant stress of hospitalization likely upper. -Eliquis discontinued on 08/10 for probable GI bleed with guaiac-positive stool. Restarted on 08/13 and continue Eliquis 5 mg twice daily as patient is high risk for DVT with immobilization and atrial fibrillation. -Received Protonix 80 mg IV x1 then switched and continued Protonix 40 mg twice daily. -H&H stable at 8.0/24.0, respectively. Continue to monitor closely for signs of bleeding and H&H daily. Transfusion goal hemoglobin < 7.0. Consider general surgery consultation for endoscopy if patient rebleeds. 4. Acute on chronic normocytic anemia, present on admission. Acute portion resolved. -Secondary to sepsis and infection, hemodilution from IV fluid resuscitation, acute blood loss from surgery and now probable GI bleed with guaiac positive stool. Also patient initially had serosanguineous drainage but now has minimal sanguineous drainage of right foot in wound VAC. -Discontinued iron supplementation as this is an acute phase reactant and could worsen infection. -Initial hemoglobin 8.8. Baseline hemoglobin 10-12. Patient has received a total of 4U PRBC. Continued to monitor H&H daily which have been stable 8.0/24.0, respectively. Continued PPI with Protonix 40 mg twice daily. Transfusion goal hemoglobin < 7.0. 5. Acute on chronic hypoxemic and hypercarbic respiratory failure, present on admission. Acute portion resolved. -Chronic respiratory failure multifactorial secondary to obesity hypoventilation syndrome, JEANIE, and COPD. -Patient was severely hypercarbic after initial I&D likely due to hypoventilation versus over oxygenation and then had intermittent hypoxemia on trilogy due to inappropriate trilogy settings. Farrukh evaluated and reset settings of trilogy on 08/09/2019. -Does not represent COPD exacerbation. -Continued home Spiriva and Symbicort with hospital formulary medications. -Continued supplemental oxygen as necessary to maintain oxygen saturations 88-92%. Continued trilogy at all times while sleeping or napping. Avoided excessive oxygenation as this will worsen hypercarbia. 6. Acute kidney injury, present on admission. Resolved. -Initially secondary to sepsis, infection and hypermetabolic state then later hypotension intra and postoperatively and NSAIDs. -Initial creatinine 1.39 and trended up to 1.82. Creatinine trended down with IV fluid hydration and treatment of infection. Creatinine normalized at 0.74. Baseline creatinine is unknown but appears to be 0.7 and the patient does not appear to have chronic kidney disease. -Continued IV fluids until adequately hydrated then discontinued. -Avoided nephrotoxic agents and renally adjusted medications as necessary. -Continued to monitor renal function periodically. 7. Acute metabolic encephalopathy, present on admission. Resolved. -Continue to treat infection as above. She may also suffer from intermittent hypercarbia given her significant hypercarbic respiratory failure. She may have also be suffering from some hospital delirium given her current length of stay. -CT brain without contrast did not demonstrate any acute intracranial abnormalities. -Discontinued Seroquel 25 mg daily at bedtime on 08/09/2019 which was started earlier in this admission for acute delirium. Patient continues to mentate clearly. -Nursing staff continued to keep patient awake and stimulated throughout day and allowed for restful sleep with minimal interruptions at night. 8. Acute sepsis, present on admission. Resolved. -Patient presented with leukocytosis and tachycardia with evidence of organ dysfunction including metabolic encephalopathy and DOM with staph bacteremia from source right lower extremity cellulitis, bilateral abscesses and septic joint. -Early goal directed therapy met including: IV antibiotics and IV fluid resuscitation. 9. Paroxysmal atrial fibrillation on Eliquis, chronic, present on admission. Stable. -Eliquis discontinued on 08/10 for probable GI bleed with guaiac-positive stool. Restarted and continued Eliquis 5 mg twice daily as patient is high risk for DVT with immobilization and atrial fibrillation. Continued to monitor H&H closely which have been stable 8.0/24.0 respectively. Continued PPI with Protonix 40 mg twice daily. 10. Diastolic congestive heart failure, chronic, present on admission. Stable. -Does not represent CHF exacerbation. -Discontinued metolazone and spironolactone. -Continued furosemide 20 mg IV daily to keep patient euvolemic while hospitalized. -Continued strict I&Os and daily weights. -Repeated echocardiogram as above to assess for valvular vegetations. 11. Morbid obesity, chronic, present on admission. Stable. -BMI 46.2. -Patient has increased risk of complications due to her morbid obesity. Counseled patient on lifestyle modification including diet and exercise. -Consulted dietitian and we appreciate her time and recommendations. 12. Psoriasis on Humira, chronic, present on admission. Stable. -Patient received Humira injections every 2 weeks, with last dose approximately a week and half prior to admission. She reports good response of plaque psoriasis to Humira. -Discontinued Humira and will have patient follow-up outpatient with her environmental field office manager. Exam Vital Signs (past 8 hours): - 08/17/19 08:00 Temperature 99.1 F Pulse Rate 92 H Respiratory Rate 20 Blood Pressure 111/55 L Pulse Oximetry 96 Fraction of Inspired Oxygen 0.25 Oxygen Delivery Method Nasal Cannula Oxygen Flow Rate 1 Narrative Exam Narrative: General: Elderly female lying in bed, in no acute distress, well-developed, well-nourished, alert and oriented, appropriately interactive. HEENT: Normocephalic, atraumatic. External ears without defect. Pupils equal, round, and reactive to light. Anicteric sclerae, moist conjunctivae, and no lid lag. Neck: Supple with full range of motion. No jugular venous distension. No lymphadenopathy or thyromegaly. Cardiovascular: Irregularly irregular without murmurs, rubs, or gallops appreciated. Pulmonary: Clear to auscultation bilaterally in anterior lung simons without crackles, wheezes, or rhonchi. Normal respiratory effort with no use of accessory muscles. Abdomen: Soft, obese, bowel sounds present, nontender, nondistended. Extremities: No clubbing or cyanosis. Mild pitting edema of bilateral lower extremities with lillie wraps to mid pretibial area and requested these be length into knees. Scattered ecchymosis throughout upper and lower extremities. Right foot with wound VAC in place with minimal sanguineous drainage, mild edema of dorsum of foot with tenderness to palpation in mid dorsum of foot otherwise surrounding skin numb, and no longer significantly erythematous. Left hallux MTP joint erythema and tenderness resolved. Neurological: Cranial nerves grossly intact. Psychiatric: Normal mood and affect. Alert oriented x3. Objective Labs Result Diagrams: 08/17/19 05:15 08/17/19 05:15 Labs: Laboratory Results - last 24 hr 08/17/19 08/17/19 08/17/19 05:15 05:15 05:15 WBC 6.0 RBC 2.46 L Hgb 7.8 L Hct 23.8 L MCV 96.4 MCH 31.7 MCHC 32.9 RDW 15.8 H Plt Count 431 H Neut % (Auto) 66.9 Lymph % (Auto) 17.6 L [place] % (Auto) 11.1 Eos % (Auto) 3.7 Baso % (Auto) 0.7 Neut # (Auto) 4000 Lymph # (Auto) 1100 [place] # (Auto) 700 Eos # (Auto) 200 Baso # (Auto) 0 Sodium 137 Potassium 4.1 Chloride 93 L Carbon Dioxide 38 H BUN 34 H Creatinine 0.71 Estimated GFR > 60.0 BUN/Creatinine Ratio 47.9 H Glucose 81 Uric Acid Calcium 9.6 Magnesium 1.8 Total Bilirubin 0.3 AST 22 ALT 4 Alkaline Phosphatase 128 H Total Protein 5.8 L Albumin 2.5 L Globulin 3.3 Albumin/Globulin Ratio 0.8 L Procalcitonin < 0.05 08/17/19 05:15 WBC RBC Hgb Hct MCV MCH MCHC RDW Plt Count Neut % (Auto) Lymph % (Auto) [place] % (Auto) Eos % (Auto) Baso % (Auto) Neut # (Auto) Lymph # (Auto) [place] # (Auto) Eos # (Auto) Baso # (Auto) Sodium Potassium Chloride Carbon Dioxide BUN Creatinine Estimated GFR BUN/Creatinine Ratio Glucose Uric Acid 6.6 H Calcium Magnesium Total Bilirubin AST ALT Alkaline Phosphatase Total Protein Albumin Globulin Albumin/Globulin Ratio Procalcitonin Discharge Plan Discharge orders & Medications Discharge Orders: Discharge (Order); Ordered 08/17/19 Ordered By: Candice Corbett Prescriptions: No Action latanoprost 0.005 % drops 1 drp ophthalmic (eye) BEDTIME RF: 0 prednisone 20 mg tablet See Rx Instructions .ROUTE .COMPLEX RF: 0 metolazone 5 mg tablet 1.25 mg PO DAILY RF: 0 potassium chloride 20 mEq tablet,ER particles/crystals 40 meq PO DAILY RF: 0 montelukast 10 mg tablet 10 mg PO QPM RF: 0 fluoxetine 20 mg capsule 20 mg PO DAILY RF: 0 spironolactone 50 mg tablet 75 mg PO DAILY RF: 0 bupropion HCl 150 mg tablet extended release 24 hr 150 mg PO QPM RF: 0 budesonide-formoterol [Symbicort] 160-4.5 mcg/actuation HFA aerosol inhaler 1 inh INHALATION BID RF: 0 Spiriva Respimat 2.5 mcg/actuation mist 2 inh INHALATION DAILY RF: 0 Eliquis 5 mg tablet 5 mg PO BID RF: 0 acetaminophen 325 mg Tablet 650 mg PO Q6H PRN (Reason: pain) RF: 0 albuterol sulfate 1.25 mg/3 mL Solution For Nebulization 1.25 mg INHALATION Q6H PRN (Reason: Wheezing) RF: 0 melatonin 3 mg Tablet 3 mg PO BEDTIME PRN (Reason: Insomnia) RF: 0 calcitonin (salmon) 200 unit/actuation [place],Non-Aerosol 1 spray INTRANASAL (ALT) DAILY RF: 0 ferrous sulfate 325 mg (65 mg iron) Tablet 325 mg PO DAILY RF: 0 cholecalciferol (vitamin D3) [Vitamin D3] 125 mcg (5,000 unit) Tablet 5,000 unit PO DAILY RF: 0 albuterol sulfate 90 mcg/actuation Aerosol Powdr Breath Activated 2 inh INHALATION Q4H PRN (Reason: Shortness Of Breath) RF: 0 magnesium oxide 400 mg magnesium Tablet 400 mg PO DAILY RF: 0 [place]-3 1 cap PO DAILY RF: 0 levalbuterol HCl [Xopenex] 1.25 mg/3 mL Solution For Nebulization 1.25 mg INHALATION Q4H RF: 0 prednisone 10 mg tablet 40 mg PO DAILY Qty: 50 RF: 0 Follow up/Referrals: Anjel Rm MD [Physician] - 2 Weeks Josue Menchaca DO [Primary Care Provider] - Discharge Data Primary Care Provider: Josue Menchaca Quality VTE Deep Vein Thrombosis/Pulmonary Embolism Present on Admission: No
[2019-08-17] MEDS: allopurinoL 100 MG TABLET 200 MG PO (12:06)
--- NOTE | 2019-08-17 13:07 | PC.NURSE ---
Discharge/Transport Note Pt to [facility] via mechanical lift and transferred to [facility] in [place] via BLS ambulance at 1220. Updated daughter, Db, and attempted to update son, Chico (no answer and no voicemail box). All belongings with pt including own trilogy machine and tubing, own oxygen machine, clothing, glasses. Wound vac lines clamped x2 and wound vac disconnected for transport. Per wound nurse at [facility], they will apply own wound vac upon pt's arrival. DL PICC line and davalos catheter in place. Attempted to call report to receiving nurse at [facility] - message left with callback number. Meds have been faxed and info packets are with transport team/pt.
--- NOTE | 2019-08-17 13:22 | CM.DPC ---
DCP/continued: Received call this AM from [place]ico at [facility] in [place]. He reports that they can accept patient today. Notified Dr. Corbett. Accepting provider is Dr. Bronson. Location is [address] [place] [id number] Corbett has spoken to both accepting provider and Orthopedics/Dr. Townsend about transfer today. Dr. Townsend in agreement but want to make sure patient gets wound vac replaced MICHAEL. [place] and [facility] home management supervisor assure staff that they can accommodate. Met with patient explained role. Patient aware and agreeable to transfer to [facility] today. Important Message from Medicare signed. Patient reports that she has contacted her family. RN given number to call report and packet made for discharge. Current medication list faxed to [facility]. No additional needs identified. Charge/RN to call for non urgent ambulance transport. P: [facility] today. JACKELIN Hyatt
== END 2019-08-17 12:20 | DRG 853 ==
LOC: ED 23:43 → AC 23:58 → ICU 08-06 14:00 → AC 08-10 09:37 → ICU 08-10 09:37
PROVIDERS: Internal Medicine; Nurse Practitioner Adult Health; Orthopaedic Surgery Adult Reconstructive Orthopaedic Surgery; Orthopaedic Surgery Foot and Ankle Surgery; Admitting Provider Nurse Practitioner Family; Emergency Provider Emergency Medicine; PCP Family Medicine; Referring Provider Emergency Medicine; Visit Provider Nurse Practitioner Family
PROC: 0LBV0ZZ Excision of Right Foot Tendon, Open Approach (ICD-10-PCS; principal; 2019-08-05 13:00)
PROC: 0LD Tendons, Extraction (ICD-10-PCS; principal; 2019-08-07 09:30)
PROC: 0QBG0ZZ Excision of Right Tibia, Open Approach (ICD-10-PCS; principal; 2019-08-10 16:15)
DX: A41.01 Sepsis due to Methicillin susceptible Staphylococcus aureus (principal); G93.41 Metabolic encephalopathy; J96.21 Acute and chronic respiratory failure with hypoxia; J96.22 Acute and chronic respiratory failure with hypercapnia; L03.115 Cellulitis of right lower limb; I50.32 Chronic diastolic (congestive) heart failure; Z68.42 Body mass index [BMI] 45.0-49.9, adult; N17.9 Acute kidney failure, unspecified; E87.3 Alkalosis; D62 Acute posthemorrhagic anemia; M00.071 Staphylococcal arthritis, right ankle and foot; K92.2 Gastrointestinal hemorrhage, unspecified; R65.20 Severe sepsis without septic shock; Z99.81 Dependence on supplemental oxygen; I48.0 Paroxysmal atrial fibrillation; Z79.01 Long term (current) use of anticoagulants; J44.9 Chronic obstructive pulmonary disease, unspecified; E66.01 Morbid (severe) obesity due to excess calories; B95.8 Unspecified staphylococcus as the cause of diseases classified elsewhere; D64.9 Anemia, unspecified; L40.0 Psoriasis vulgaris; I95.9 Hypotension, unspecified; B95.61 Methicillin susceptible Staphylococcus aureus infection as the cause of diseases classified elsewhere; M10.271 Drug-induced gout, right ankle and foot; Z87.891 Personal history of nicotine dependence; Z11.59 Encounter for screening for other viral diseases; W18.30XA Fall on same level, unspecified, initial encounter
CPT/HCPCS: 36415; 36430; 36569; 36592; 36600; 70450; 71045; 73610; 73701; 73720; 80048; 80053; 80076; 80202; 82805; 82962; 83036; 83605; 83690; 83735; 84100; 84145; 84484; 84550; 85014; 85018; 85025; 85610; 85651; 85730; 86140; 86850; 86900; 86901; 87040; 87070; 87075; 87077; 87147; 87150; 87186; 87205; 87635; 87797; 89051; 89060; 93306; 94640; 94660; 94760; 94762; 96365; 97110; 97129; 97162; 97165; 97530; 97535; 99231; 99284; P9016; A9579; C9113; J0330; J0690; J0696; J1170; J1642; J1650; J1885; J1940; J2060; J2270; J2405; J2704; J2930; J3010; J7613; Q9967

== ENCOUNTER 2019-12-02 15:01 | Emergency (ER) | payer MEDICARE, OTHER, SELFPAY ==
[2019-08-02 00:11] VITALS: BMI 47.2
[2019-08-13 01:47] VITALS: PULSE 93; RESP 34; O2SAT 95
[2019-12-02] VITALS (9 sets, daily range): BP systolic 96–108; BP diastolic 51–60; PULSE 75–100; RESP 12–18; TEMP 37; O2SAT 96–100; BMI 39.8
--- NOTE | 2019-12-02 15:53 | DI.RAD.S_ITS ---
PROCEDURE: XR FOOT RT 2V INDICATIONS: pain, wound, hx abscess vs osteo TECHNIQUE: 3 views of the foot were acquired. COMPARISON: None. FINDINGS: Bones: No definite fracture. Diffuse osteopenia is present. There is poor visualization of all of the lesser metacarpal head cortices although unclear if this is due to severe osteopenia. Soft tissue swelling. Diffuse midfoot and hindfoot joint degeneration. Plantar calcaneal spur IMPRESSION: Diffuse soft tissue swelling. Severely suboptimal evaluation due to diffuse osteopenia and lack of prior studies, in particular at the lesser metacarpophalangeal joints, where there is possible osteolysis versus severe osteopenia. If there is persistent clinical concern, continued short interval radiographic followup or contrast enhanced MRI could be performed. Dictated by: Solo Cross M.D. on 12/02/2019 at 16:33 Approved by: Solo Cross M.D. on 12/02/2019 at 16:37
--- NOTE | 2019-12-02 16:22 | ED.LOWEXIN ---
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 She has history of admission to this facility from August 01, 2019 to August 17, 2019 regarding MSSA bacteremia, I and D x3 and wound VAC placement, septic arthritis, and a wound on her right foot. She states that she saw Dr. Rm from [facility] last Friday who placed her on cephalexin. Today she was at the [facility] Care [facility] having her dressing change when it was noted that her wound was increasingly red, purulent drainage, and increasingly swollen. She was subsequently referred to the emergency department for further evaluation. The patient presents today with her daughter in law. The patient states that she just wants of medication and ?to go home.She does state that her chronic back pain is acting up again. Related Data Home Medications Medication Instructions Recorded Confirmed Eliquis 5 mg PO BID 05/24/19 08/02/19 [place]-3 1 cap PO DAILY 05/24/19 08/02/19 Spiriva Respimat 2 inh INHALATION DAILY 05/24/19 08/02/19 acetaminophen 650 mg PO Q6H PRN 05/24/19 08/02/19 albuterol sulfate 1.25 mg INHALATION Q6H PRN 05/24/19 08/02/19 albuterol sulfate 2 inh INHALATION Q4H PRN 05/24/19 08/02/19 budesonide-formoterol [Symbicort] 1 inh INHALATION BID 05/24/19 08/02/19 bupropion HCl 150 mg PO QPM 05/24/19 08/02/19 calcitonin (salmon) 1 spray INTRANASAL (ALT) DAILY 05/24/19 08/02/19 cholecalciferol (vitamin D3) 5,000 unit PO DAILY 05/24/19 08/02/19 [Vitamin D3] ferrous sulfate 325 mg PO DAILY 05/24/19 08/02/19 fluoxetine 20 mg PO DAILY 05/24/19 08/02/19 latanoprost 1 drp OPHTHALMIC (EYE) BEDTIME 05/24/19 08/02/19 levalbuterol HCl [Xopenex] 1.25 mg INHALATION Q4H 05/24/19 08/02/19 magnesium oxide 400 mg PO DAILY 05/24/19 08/02/19 melatonin 3 mg PO BEDTIME PRN 05/24/19 08/02/19 metolazone 1.25 mg PO DAILY 05/24/19 08/02/19 montelukast 10 mg PO QPM 05/24/19 08/02/19 potassium chloride 40 meq PO DAILY 05/24/19 08/02/19 prednisone See Rx Instructions .ROUTE .COMPLEX 05/24/19 08/02/19 spironolactone 75 mg PO DAILY 05/24/19 08/02/19 cephalexin 500 mg PO 12/08/19 ciprofloxacin HCl 250 mg PO BID 12/08/19 12/08/19 Previous Rx's Medication Instructions Recorded prednisone 40 mg PO DAILY #50 tab 07/30/19 Allergies Allergy/AdvReac Type Severity Reaction Status Date / Time morphine Allergy Severe Hallucinati Verified 12/02/19 15:21 ng Sulfa (Sulfonamide Allergy Intermediate Verified 12/02/19 15:20 Antibiotics) Review of Systems <CHICA StilesBC - Last Filed: 12/02/19 20:08> Review of Systems Narrative: GENERAL: Denies chills, fatigue, malaise, fever, sweats. HEENT: Denies sinus pain, ear pain, sore throat, difficulty swallowing, dizziness. RESPIRATORY: Denies dyspnea, cough, wheezing, hemoptysis, sputum. CARDIOVASCULAR: Denies chest pain, palpitations, orthopnea, edema, GASTROINTESTINAL: Denies nausea, vomiting, abdominal pain, diarrhea, constipation, melena. : Denies dysuria, frequency, incontinence, hematuria, urinary retention. MUSCULOSKELETAL: See HPI SKIN: See HPI NEUROLOGIC: Denies weakness, headache, numbness, change in speech, confusion, seizures, incoordination. PSYCHIATRIC: No concerning psychosocial issues. 12 point review of systems is negative except for those stated above Patient History <TIM Stiles - Last Filed: 12/02/19 20:08> Medical History Atrial fibrillation (Acute) Congestive heart failure (Acute) COPD (chronic obstructive pulmonary disease) (Acute) Family History Mother Pneumonia Father Medical history unknown Sister Macular degeneration Social History household members: family Smoking Status: Former smoker alcohol intake: current Smoking Status: Former smoker alcohol intake frequency: a few times a month Substance Use Type: does not use Exam <TIM Stiles - Last Filed: 12/02/19 20:08> Narrative Exam Narrative: GENERAL: This is a well-nourished, well-developed patient, no acute distress HEAD: Atraumatic. Normocephalic. No temporal or scalp tenderness. EYES: Pupils equal round and reactive. Extraocular motions intact. No scleral icterus. No injection or drainage. ENT: Nose without bleeding, purulent drainage or septal hematoma. Throat without erythema, tonsillar hypertrophy or exudate. Uvula midline. Airway patent. NECK: Trachea midline. No JVD or lymphadenopathy. Supple, nontender, no meningeal signs. CARDIOVASCULAR: Regular rate and irregular rhythm RESPIRATORY: Clear to auscultation. Breath sounds equal bilaterally. No wheezes, rales, or rhonchi. No cough. No increased respiratory effort. No accessory muscle use. GASTROINTESTINAL: Abdomen soft, non-tender, nondistended. No hepato-splenomegaly, or palpable masses. No guarding. EXTREMITIES: Nonhealing wounds noted on right foot, medial aspect has 3 cm wound with 2 cm surrounding erythema. Slight purulent crust noted. 2 cm approximate wound on lateral aspect of right foot, no crusting or drainage noted. Positive pedal pulses bilateral. Bilateral lower extremities diffusely tender. NEURO: AOx3. SKIN: See extremity exam Initial Vital Signs Initial Vital Signs: Vital Signs Temperature 98.6 F 12/02/19 15:16 Pulse Rate 99 H 12/02/19 15:16 Respiratory Rate 18 12/02/19 15:16 Blood Pressure 105/53 L 12/02/19 15:16 Pulse Oximetry 96 09/10/20 15:16 <Marleny Stokes DO - Last Filed: 12/09/19 07:57> Initial Vital Signs Initial Vital Signs: Vital Signs Temperature 98.6 F 12/02/19 15:16 Pulse Rate 99 H 12/02/19 15:16 Respiratory Rate 18 12/02/19 15:16 Blood Pressure 105/53 L 12/02/19 15:16 Pulse Oximetry 96 12/02/19 15:16 Scores <TIM Stiles - Last Filed: 12/02/19 20:08> GCS [place] coma scale eye opening: Spontaneous [place] coma scale verbal response: Orientated [place] coma scale motor response: Obey commands [place] coma scale total score: 15 Course <TIM Stiles - Last Filed: 12/02/19 20:08> Orders Ordered: ED Orders 12/02/19 15:53 XR foot RT 2V Stat 12/02/19 16:46 C-Reactive Protein Quant Stat Complete Blood Count AUTO DIFF Stat Comprehensive Metabolic Panel Stat Erythrocyte Sedimentation Rate Stat Lactate (Lactic Acid) Stat Partial Thromboplastin Time Stat Procalcitonin Stat Prothrombin Time INR Stat 12/02/19 17:05 Blood Culture Stat Vital Signs Vital signs: Vital Signs - 8 hr 12/02/19 15:16 12/02/19 17:58 12/02/19 18:00 Temperature 98.6 F Pulse Rate 99 H 78 75 Respiratory Rate 18 Blood Pressure 105/53 L 103/60 Pulse Oximetry 96 97 98 12/02/19 18:01 12/02/19 18:30 12/02/19 18:31 Temperature Pulse Rate 80 84 100 H Respiratory Rate Blood Pressure 96/52 L 108/51 L Pulse Oximetry 98 100 100 12/02/19 19:00 12/02/19 19:01 12/02/19 19:26 Temperature Pulse Rate 82 82 80 Respiratory Rate 12 Blood Pressure 102/56 L 102/56 L Pulse Oximetry 98 99 100 <Marleny Stokes DO - Last Filed: 12/09/19 07:57> Orders Ordered: ED Orders 12/02/19 15:53 XR foot RT 2V Stat 12/02/19 16:46 C-Reactive Protein Quant Stat Complete Blood Count AUTO DIFF Stat Comprehensive Metabolic Panel Stat Erythrocyte Sedimentation Rate Stat Lactate (Lactic Acid) Stat Partial Thromboplastin Time Stat Procalcitonin Stat Prothrombin Time INR Stat 12/02/19 17:05 Blood Culture Stat Vital Signs Vital signs: Vital Signs - 8 hr 12/02/19 15:16 12/02/19 17:58 12/02/19 18:00 Temperature 98.6 F Pulse Rate 99 H 78 75 Respiratory Rate 18 Blood Pressure 105/53 L 103/60 Pulse Oximetry 96 97 98 12/02/19 18:01 12/02/19 18:30 12/02/19 18:31 Temperature Pulse Rate 80 84 100 H Respiratory Rate Blood Pressure 96/52 L 108/51 L Pulse Oximetry 98 100 100 12/02/19 19:00 12/02/19 19:01 12/02/19 19:26 Temperature Pulse Rate 82 82 80 Respiratory Rate 12 Blood Pressure 102/56 L 102/56 L Pulse Oximetry 98 99 100 MDM - Extremity Injury (Lower) <Fatou Edwards, PLANNING SPECIALIST-BC - Last Filed: 12/02/19 20:08> Lab Data Attestation: I reviewed the patient's lab results. Result diagrams: 12/02/19 16:46 12/02/19 16:46 Labs: Lab Results 12/02/19 12/02/19 12/02/19 Range/Units 16:46 16:46 16:46 WBC 5.6 (4.5-11.0) X10^3/uL RBC 2.70 L (4.0-5.2) X10^6/uL Hgb 8.5 L (12.0-16.0) g/dL Hct 26.7 L (36-46) % MCV 98.7 (80-100) fL MCH 31.5 (26-34) PG MCHC 31.9 (30-36) % RDW 16.8 H (11.6-14.8) % Plt Count 297 (150-400) X10^3/uL Neut % (Auto) 75.6 H (50-75) % Lymph % (Auto) 13.9 L (25-40) % Tama % (Auto) 9.1 (3-14) % Eos % (Auto) 1.0 L (2-4) % Baso % (Auto) 0.4 (0-2) % Neut # (Auto) 4200 (4473-0175) /uL Lymph # (Auto) 800 L (0337-4570) /uL Tama # (Auto) 500 (0-900) /uL Eos # (Auto) 100 (0-450) /uL Baso # (Auto) 0 (0-100) /uL ESR 66 H (0-20) MM/HR PT 15.2 H (10.1-12.7) SECONDS INR 1.3 (0.9-1.3) APTT 38 H (26.4-36.2) SECONDS Sodium (137-145) mmol/L Potassium (3.4-5.1) mmol/L Chloride (98-107) mmol/L Carbon Dioxide (22-32) mmol/L BUN (7-17) mg/dL Creatinine (0.52-1.04) mg/dL Estimated GFR (>60) mL/min BUN/Creatinine Ratio (6-22) Glucose (80-110) mg/dL Lactate (0.7-2.1) mmol/L Calcium (8.4-10.2) mg/dL Total Bilirubin (0.2-1.3) mg/dL AST (14-36) IU/L ALT (<35) IU/L Alkaline Phosphatase (38-126) U/L C-Reactive Protein (<1.0) mg/dL Total Protein (6.3-8.2) g/dL Albumin (3.5-5.0) g/dL Globulin (1.7-4.1) g/dL Albumin/Globulin Ratio (1.0-2.8) Procalcitonin < 0.05 (<0.5) ng/mL 12/02/19 12/02/19 Range/Units 16:46 16:46 WBC (4.5-11.0) X10^3/uL RBC (4.0-5.2) X10^6/uL Hgb (12.0-16.0) g/dL Hct (36-46) % MCV (80-100) fL MCH (26-34) PG MCHC (30-36) % RDW (11.6-14.8) % Plt Count (150-400) X10^3/uL Neut % (Auto) (50-75) % Lymph % (Auto) (25-40) % [place]ama % (Auto) (3-14) % Eos % (Auto) (2-4) % Baso % (Auto) (0-2) % Neut # (Auto) (0926-5245) /uL Lymph # (Auto) (2183-1128) /uL [place]ama # (Auto) (0-900) /uL Eos # (Auto) (0-450) /uL Baso # (Auto) (0-100) /uL ESR (0-20) MM/HR PT (10.1-12.7) SECONDS INR (0.9-1.3) APTT (26.4-36.2) SECONDS Sodium 137 (137-145) mmol/L Potassium 4.5 (3.4-5.1) mmol/L Chloride 99 (98-107) mmol/L Carbon Dioxide 37 H (22-32) mmol/L BUN 38 H (7-17) mg/dL Creatinine 1.21 H (0.52-1.04) mg/dL Estimated GFR 42.9 L (>60) mL/min BUN/Creatinine Ratio 31.4 H (6-22) Glucose 125 H (80-110) mg/dL Lactate 0.5 L (0.7-2.1) mmol/L Calcium 9.8 (8.4-10.2) mg/dL Total Bilirubin 0.3 (0.2-1.3) mg/dL AST 21 (14-36) IU/L ALT 11 (<35) IU/L Alkaline Phosphatase 86 (38-126) U/L C-Reactive Protein 2.3 H (<1.0) mg/dL Total Protein 6.3 (6.3-8.2) g/dL Albumin 3.4 L (3.5-5.0) g/dL Globulin 2.9 (1.7-4.1) g/dL Albumin/Globulin Ratio 1.2 (1.0-2.8) Procalcitonin (<0.5) ng/mL Imaging Data Extremity x-ray #1: Radiologist's Impression: [address] [place] [id number] XRay Report Signed Patient: Leyda Nielsen MMR#: [id number] : 1940Acct:[id number] Age/Sex: 79 / FDate of Service: 12/02/19 Loc: ED Accession Number: [id number] Procedure: XR foot RT 2V Ordering Provider: Fatou Edwards PLANNING SPECIALIST-BC PROCEDURE: XR FOOT RT 2V INDICATIONS: pain, wound, hx abscess vs osteo TECHNIQUE: 3 views of the foot were acquired. COMPARISON: None. FINDINGS: Bones: No definite fracture. Diffuse osteopenia is present. There is poor visualization of all of the lesser metacarpal head cortices although unclear if this is due to severe osteopenia. Soft tissue swelling. Diffuse midfoot and hindfoot joint degeneration. Plantar calcaneal spur IMPRESSION: Diffuse soft tissue swelling. Severely suboptimal evaluation due to diffuse osteopenia and lack of prior studies, in particular at the lesser metacarpophalangeal joints, where there is possible osteolysis versus severe osteopenia. If there is persistent clinical concern, continued short interval radiographic followup or contrast enhanced MRI could be performed. Dictated by: Solo Cross M.D. on 12/02/2019 at 16:33 Approved by: Solo Cross M.D. on 12/02/2019 at 16:[address] [facility] Narrative Medical decision making narrative: The patient is a 79-year-old female former smoker with multiple medical comorbidities including CHF, COPD, and nonhealing wounds who presents with a chief complaint of continued right foot pain, redness sent by wound care. She recently finished a course of cephalexin prescribed by Orthopedics, Dr. Rm. Given her complicated history including septic arthritis of her right ankle as well as multiple I and D's with wound VAC placement on her right foot, we did obtain lab work which showed no leukocytosis, but elevated ESR and CRP. It is reassuring that her lactate is negative, and her procalcitonin is negative as well. Given the patient's complicated history, I spoke with Dr. Cartagena regarding the patient. We discussed her elevated ESR, CRP, the fact that she just finished antibiotics etcetera. He states that the patient does not necessarily need to be admitted tonight, but he would like her to follow up with Dr. Rm tomorrow. She is to be NPO after midnight and call the orthopedic office at 8:00 a.m. to see if she can get an earlier appointment. I discussed holding off her medications in the morning until she speaks with Orthopedics. Discussed continuing her normal pain medications as previously prescribed. The patient is afebrile, not tachycardic or hypotensive in the emergency department and loss hemodynamically stable. I discussed at length with the patient and her daughter in-law to be NPO after midnight and follow-up with orthopedics at 8:00 a.m.. The meantime come back here for any acute concerns. Patient has no questions or concerns upon discharge and states understanding of return precautions as well as follow-up care. Will hold off on further antibiotics as per Dr. Cartagena and encouraged ice and elevation. <Marleny Stokes, DO - Last Filed: 12/09/19 07:57> Lab Data Labs: Lab Results 12/02/19 12/02/19 12/02/19 Range/Units 16:46 16:46 16:46 WBC 5.6 (4.5-11.0) X10^3/uL RBC 2.70 L (4.0-5.2) X10^6/uL Hgb 8.5 L (12.0-16.0) g/dL Hct 26.7 L (36-46) % MCV 98.7 (80-100) fL MCH 31.5 (26-34) PG MCHC 31.9 (30-36) % RDW 16.8 H (11.6-14.8) % Plt Count 297 (150-400) X10^3/uL Neut % (Auto) 75.6 H (50-75) % Lymph % (Auto) 13.9 L (25-40) % Tama % (Auto) 9.1 (3-14) % Eos % (Auto) 1.0 L (2-4) % Baso % (Auto) 0.4 (0-2) % Neut # (Auto) 4200 (1053-6771) /uL Lymph # (Auto) 800 L (3089-3649) /uL [place]ama # (Auto) 500 (0-900) /uL Eos # (Auto) 100 (0-450) /uL Baso # (Auto) 0 (0-100) /uL ESR 66 H (0-20) MM/HR PT 15.2 H (10.1-12.7) SECONDS INR 1.3 (0.9-1.3) APTT 38 H (26.4-36.2) SECONDS Sodium (137-145) mmol/L Potassium (3.4-5.1) mmol/L Chloride (98-107) mmol/L Carbon Dioxide (22-32) mmol/L BUN (7-17) mg/dL Creatinine (0.52-1.04) mg/dL Estimated GFR (>60) mL/min BUN/Creatinine Ratio (6-22) Glucose (80-110) mg/dL Lactate (0.7-2.1) mmol/L Calcium (8.4-10.2) mg/dL Total Bilirubin (0.2-1.3) mg/dL AST (14-36) IU/L ALT (<35) IU/L Alkaline Phosphatase (38-126) U/L C-Reactive Protein (<1.0) mg/dL Total Protein (6.3-8.2) g/dL Albumin (3.5-5.0) g/dL Globulin (1.7-4.1) g/dL Albumin/Globulin Ratio (1.0-2.8) Procalcitonin < 0.05 (<0.5) ng/mL 12/02/19 12/02/19 Range/Units 16:46 16:46 WBC (4.5-11.0) X10^3/uL RBC (4.0-5.2) X10^6/uL Hgb (12.0-16.0) g/dL Hct (36-46) % MCV (80-100) fL MCH (26-34) PG MCHC (30-36) % RDW (11.6-14.8) % Plt Count (150-400) X10^3/uL Neut % (Auto) (50-75) % Lymph % (Auto) (25-40) % Tama % (Auto) (3-14) % Eos % (Auto) (2-4) % Baso % (Auto) (0-2) % Neut # (Auto) (6766-6151) /uL Lymph # (Auto) (8335-5793) /uL Tama # (Auto) (0-900) /uL Eos # (Auto) (0-450) /uL Baso # (Auto) (0-100) /uL ESR (0-20) MM/HR PT (10.1-12.7) SECONDS INR (0.9-1.3) APTT (26.4-36.2) SECONDS Sodium 137 (137-145) mmol/L Potassium 4.5 (3.4-5.1) mmol/L Chloride 99 (98-107) mmol/L Carbon Dioxide 37 H (22-32) mmol/L BUN 38 H (7-17) mg/dL Creatinine 1.21 H (0.52-1.04) mg/dL Estimated GFR 42.9 L (>60) mL/min BUN/Creatinine Ratio 31.4 H (6-22) Glucose 125 H (80-110) mg/dL Lactate 0.5 L (0.7-2.1) mmol/L Calcium 9.8 (8.4-10.2) mg/dL Total Bilirubin 0.3 (0.2-1.3) mg/dL AST 21 (14-36) IU/L ALT 11 (<35) IU/L Alkaline Phosphatase 86 (38-126) U/L C-Reactive Protein 2.3 H (<1.0) mg/dL Total Protein 6.3 (6.3-8.2) g/dL Albumin 3.4 L (3.5-5.0) g/dL Globulin 2.9 (1.7-4.1) g/dL Albumin/Globulin Ratio 1.2 (1.0-2.8) Procalcitonin (<0.5) ng/mL Discharge Plan Departure Patient Disposition: Home Clinical Impression: Non-healing wound Discharge Date/Time: 12/02/19 19:31 Instructions: How To Perform RICE (Rest, Ice, Compress, Elevate), DI for Wound Infection Activity Restrictions/Additional Instructions: Thank you for trusting us with your care today. As discussed, I spoke with Dr. Cartagena from [facility]. He would like you to call the office at 8:00 a.m. tomorrow to try to get an earlier appointment with Dr. Rm. Please follow-up with the office at 8:00 a.m., hold on taking her medications until after that phone call As discussed, nothing to eat or drink after midnight in case you have to go to surgery tomorrow Please use rest ice compression elevation for your leg in the meantime Prescriptions: No Action latanoprost 0.005 % drops 1 drp ophthalmic (eye) BEDTIME RF: 0 prednisone 20 mg tablet See Rx Instructions .ROUTE .COMPLEX RF: 0 metolazone 5 mg tablet 1.25 mg PO DAILY RF: 0 potassium chloride 20 mEq tablet,ER particles/crystals 40 meq PO DAILY RF: 0 montelukast 10 mg tablet 10 mg PO QPM RF: 0 fluoxetine 20 mg capsule 20 mg PO DAILY RF: 0 spironolactone 50 mg tablet 75 mg PO DAILY RF: 0 bupropion HCl 150 mg tablet extended release 24 hr 150 mg PO QPM RF: 0 budesonide-formoterol [Symbicort] 160-4.5 mcg/actuation HFA aerosol inhaler 1 inh INHALATION BID RF: 0 Spiriva Respimat 2.5 mcg/actuation mist 2 inh INHALATION DAILY RF: 0 Eliquis 5 mg tablet 5 mg PO BID RF: 0 acetaminophen 325 mg Tablet 650 mg PO Q6H PRN (Reason: pain) RF: 0 albuterol sulfate 1.25 mg/3 mL Solution For Nebulization 1.25 mg INHALATION Q6H PRN (Reason: Wheezing) RF: 0 melatonin 3 mg Tablet 3 mg PO BEDTIME PRN (Reason: Insomnia) RF: 0 calcitonin (salmon) 200 unit/actuation [place],Non-Aerosol 1 spray INTRANASAL (ALT) DAILY RF: 0 ferrous sulfate 325 mg (65 mg iron) Tablet 325 mg PO DAILY RF: 0 cholecalciferol (vitamin D3) [Vitamin D3] 125 mcg (5,000 unit) Tablet 5,000 unit PO DAILY RF: 0 albuterol sulfate 90 mcg/actuation Aerosol Powdr Breath Activated 2 inh INHALATION Q4H PRN (Reason: Shortness Of Breath) RF: 0 magnesium oxide 400 mg magnesium Tablet 400 mg PO DAILY RF: 0 [place]-3 1 cap PO DAILY RF: 0 levalbuterol HCl [Xopenex] 1.25 mg/3 mL Solution For Nebulization 1.25 mg INHALATION Q4H RF: 0 prednisone 10 mg tablet 40 mg PO DAILY Qty: 50 RF: 0 ciprofloxacin HCl 250 mg tablet 250 mg PO BID RF: 0 cephalexin 500 mg capsule 500 mg PO RF: 0 Referrals: Anjel Rm MD [Physician] - Josue Menchaca DO [Primary Care Provider] - <Marleny Stokes DO - Last Filed: 12/09/19 07:57> Cosign ED Attending Cosignature Attestation: I was immediately available in the department for consultation. Documentation has been reviewed. I agree with assessment and plan.
[2019-12-02 16:55] LABS: Add Manual Diff / Slide Review NO; Basophils Absolute Auto 0 /uL (0-100); Basophils Percent Auto 0.4 % (0-2); Eosinophils Absolute Auto 100 /uL (0-450); Hematocrit 26.7 % (36-46); Hemoglobin 8.5 g/dL (12.0-16.0); Lymphocytes Absolute Auto 800 /uL (1100-4500); Lymphocytes Percent Auto 13.9 % (25-40); Mean Corpuscular HGB Conc 31.9 % (30-36); Mean Corpuscular Hemoglobin 31.5 PG (26-34); Mean Corpuscular Volume 98.7 fL (80-100); Monocytes Absolute Auto 500 /uL (0-900); Monocytes Percent Auto 9.1 % (3-14); Neutrophils Absolute Auto 4200 /uL (1500-7000); Neutrophils Percent Auto 75.6 % (50-75); Platelet Count 297 X10^3/uL (150-400); Red Cell Distribution Width 16.8 % (11.6-14.8); White Blood Cell Count 5.6 X10^3/uL (4.5-11.0)
[2019-12-02 17:03] LABS: INR 1.3 (0.9-1.3); Prothrombin Time 15.2 SECONDS (10.1-12.7)
[2019-12-02 17:06] LABS: PTT Partial Thromboplastin Tim 38 SECONDS (26.4-36.2)
[2019-12-02 17:17] LABS: Erythrocyte Sedimentation Rate 66 MM/HR (0-20); Lactate (Lactic Acid) 0.5 mmol/L (0.7-2.1)
[2019-12-02 17:20] LABS: Alanine Aminotransferase 11 IU/L (<35); Albumin 3.4 g/dL (3.5-5.0); Albumin Globulin Ratio 1.2 (1.0-2.8); Alkaline Phosphatase 86 U/L (38-126); Aspartate Aminotransferase 21 IU/L (14-36); BUN Creatinine Ratio 31.4 (6-22); Bilirubin Total 0.3 mg/dL (0.2-1.3); Blood Urea Nitrogen 38 mg/dL (7-17); C-Reactive Protein Quant 2.3 mg/dL (<1.0); Calcium 9.8 mg/dL (8.4-10.2); Carbon Dioxide 37 mmol/L (22-32); Chloride 99 mmol/L (98-107); Estimated Glomerular Filt Rate 42.9 mL/min (>60); Globulin 2.9 g/dL (1.7-4.1); Glucose 125 mg/dL (80-110); HEMOLYSIS < 15 (0-50); Potassium 4.5 mmol/L (3.4-5.1); Sodium 137 mmol/L (137-145); Total Protein 6.3 g/dL (6.3-8.2)
[2019-12-02 17:48] LABS: Procalcitonin < 0.05 ng/mL (<0.5)
== END 2019-12-02 19:31 | disposition home or self-care (01) ==
PROVIDERS: Emergency Provider Nurse Practitioner Family; PCP Family Medicine
DX: T81.89XA Other complications of procedures, not elsewhere classified, initial encounter (principal); M79.671 Pain in right foot; R79.89 Other specified abnormal findings of blood chemistry; E66.01 Morbid (severe) obesity due to excess calories
CPT/HCPCS: 36415; 73620; 80053; 83605; 84145; 85025; 85610; 85651; 85730; 86140; 87040; 99283; 99284

== ENCOUNTER 2019-12-08 15:41 | Emergency (ER) | payer MEDICARE, OTHER, SELFPAY ==
[2019-08-02 00:11] VITALS: BMI 47.2
[2019-08-13 01:47] VITALS: PULSE 93; RESP 34; O2SAT 95
[2019-12-08] VITALS (12 sets, daily range): BP systolic 102–122; BP diastolic 52–58; PULSE 71–102; RESP 17–18; TEMP 36.5; O2SAT 98–100; BMI 39.8
--- NOTE | 2019-12-08 17:26 | ED_ITS ---
HPI - Recheck/Abnormal Lab/Rx <Blanca Wilson PA-C - Last Filed: 12/08/19 22:40> General Chief Complaint: Recheck/Abnormal Lab/Rx Stated Complaint: Foot/back pain Time Seen by Provider: 12/08/19 17:21 Source: patient Mode of arrival: EMS Limitations: physical limitation History of Present Illness HPI narrative: This is a 79-year-old woman, severe obesity, CHF chronic hypoxemia, COPD on oxygen at home, poorly healing surgical wounds of her right foot, septic arthritis of her right ankle, abscess of right foot, paroxysmal atrial fibrillation who presents the emergency department by EMS with her daughter in attendance complaining of significantly worsening right foot pain. She has been at home for about 3 weeks now had surgery in July on her foot, the last couple weeks has barely been ambulating at all, has had increased pain and but infection that has been being monitored by orthopedics and her primary care provider, she has been on antibiotics for this, Keflex. In the last couple of days she felt her pain has increased significantly with any weight-bearing it is excruciating. She did have a visit with her orthopedic doctor yesterday in clinic and he evaluated her wound and told her that he should come in again or go to the ED if she felt it was worsening. She was actually planning to go to her primary care provider today this afternoon however she had so much pain when she attempted to move to get up and go that she had to call 911 and instead came to the emergency department. They received a message from the orthopedic office today that she is supposed to stop taking 1 antibiotic and then start taking a double dose of a different antibiotic. They were planning to come to her primary care for labs today and a checkup. She is currently walking with a walk er although she has been advised to minimize walking and typically only walks from her living room to her bedroom once a day as needed when it is time for bed. She lives on her own. She has a home health nurse that comes frequently to do wound care. Her daughter is concerned that she may not have enough help and that she really is not doing a whole lot right now physically, Ms. Nielsen has been refusing physical therapy because she feels she is not really supposed to be walking so there is no point. She denies any recent fever, chills, nausea, vomiting, diarrhea, abdominal pain or any other symptoms. MD complaint: wound re-check and other (Social work consult, right foot pain, postoperative infection) Initial visit (ago): day(s) (1, seen yesterday by her Ortho/wound care provider) Initial visit for: other (Postoperative poor healing wounds and associated infection of right foot) Returns today for: wound recheck, persistent/worsening pain related to initial visit and other (Difficulty with ambulation, need for additional assistance at home) Symptoms since prior visit: worsening pain (Difficulty standing and walking in the last 2 days) Context: other (Patient was to see her PCP today could not get in her lift to go downstairs called 911 for assistance was brought to the emergency department after missing her PCP appointment) Associated symptoms: other (Pain) Treatments prior to arrival: dressings, home treatments (Regular wound care, intermittent home health nursing) and given antibiotics on (Has been on antibiotics for 2 weeks switched to new antibiotics today by her care team) Related Data Home Medications Medication Instructions Recorded Confirmed Eliquis 5 mg PO BID 05/24/19 08/02/19 [place]-3 1 cap PO DAILY 05/24/19 08/02/19 Spiriva Respimat 2 inh INHALATION DAILY 05/24/19 08/02/19 acetaminophen 650 mg PO Q6H PRN 05/24/19 08/02/19 albuterol sulfate 1.25 mg INHALATION Q6H PRN 05/24/19 08/02/19 albuterol sulfate 2 inh INHALATION Q4H PRN 05/24/19 08/02/19 budesonide-formoterol [Symbicort] 1 inh INHALATION BID 05/24/19 08/02/19 bupropion HCl 150 mg PO QPM 05/24/19 08/02/19 calcitonin (salmon) 1 spray INTRANASAL (ALT) DAILY 05/24/19 08/02/19 cholecalciferol (vitamin D3) 5,000 unit PO DAILY 05/24/19 08/02/19 [Vitamin D3] ferrous sulfate 325 mg PO DAILY 05/24/19 08/02/19 fluoxetine 20 mg PO DAILY 05/24/19 08/02/19 latanoprost 1 drp OPHTHALMIC (EYE) BEDTIME 05/24/19 08/02/19 levalbuterol HCl [Xopenex] 1.25 mg INHALATION Q4H 05/24/19 08/02/19 magnesium oxide 400 mg PO DAILY 05/24/19 08/02/19 melatonin 3 mg PO BEDTIME PRN 05/24/19 08/02/19 metolazone 1.25 mg PO DAILY 05/24/19 08/02/19 montelukast 10 mg PO QPM 05/24/19 08/02/19 potassium chloride 40 meq PO DAILY 05/24/19 08/02/19 prednisone See Rx Instructions .ROUTE .COMPLEX 05/24/19 08/02/19 spironolactone 75 mg PO DAILY 05/24/19 08/02/19 cephalexin 500 mg PO 12/08/19 ciprofloxacin HCl 250 mg PO BID 12/08/19 12/08/19 Previous Rx's Medication Instructions Recorded prednisone 40 mg PO DAILY #50 tab 07/30/19 Allergies Allergy/AdvReac Type Severity Reaction Status Date / Time morphine Allergy Severe Hallucinati Verified 12/02/19 15:21 ng Sulfa (Sulfonamide Allergy Intermediate Verified 12/02/19 15:20 Antibiotics) Review of Systems <Blanca Wilson PA-C - Last Filed: 12/08/19 22:40> Review of Systems Narrative: GENERAL: Denies chills, fatigue, malaise, fever, sweats. HEENT: Denies sinus pain, ear pain, sore throat, difficulty swallowing, dizziness. RESPIRATORY: Denies dyspnea, cough, wheezing, hemoptysis, sputum. CARDIOVASCULAR: Denies chest pain, palpitations, orthopnea, edema, GASTROINTESTINAL: Denies nausea, vomiting, abdominal pain, diarrhea, constipation, melena. : Denies dysuria, frequency, incontinence, hematuria, urinary retention. MUSCULOSKELETAL: Positive for generalized weakness, joint pain, and bony pain of right foot, walks with a walker has significant pain with ambulation on her right foot. SKIN: Positive for chronic skin changes of both lower extremities, positive for 2 open wounds on her right foot. Denies other rash, skin lesions, or other NEUROLOGIC: Denies weakness, headache, numbness, change in speech, confusion, seizures, incoordination. PSYCHIATRIC: No concerning psychosocial issues. 12 point review of systems is negative except for those stated above Patient History <Blanca Wilson PA-C - Last Filed: 12/08/19 22:40> Medical History Atrial fibrillation (Acute) Congestive heart failure (Acute) COPD (chronic obstructive pulmonary disease) (Acute) Family History Mother Pneumonia Father Medical history unknown Sister Macular degeneration Social History household members: family Smoking Status: Former smoker alcohol intake: current Smoking Status: Former smoker alcohol intake frequency: a few times a month Substance Use Type: does not use Exam <Blanca Wilson PA-C - Last Filed: 12/08/19 22:40> Narrative Exam Narrative: GENERAL: 79 year old patient appears stated age. Well-nourished, obese, in no apparent distress. HEAD: Atraumatic. Normocephalic. EYES: Pupils equal round and reactive. Extraocular motions intact. No scleral icterus. No injection or drainage. ENT: Nose without bleeding, purulent drainage. Throat without erythema, tonsillar hypertrophy or exudate. Airway patent. NECK: Trachea midline. Non tender CARDIOVASCULAR: Regular rate and rhythm without murmurs, gallops, or rubs. RESPIRATORY: Clear to auscultation. Breath sounds equal bilaterally. No wheezes, rales, or rhonchi. GASTROINTESTINAL: Abdomen protuberant, soft, non-tender, nondistended. EXTREMITIES: There are 2 postsurgical open wounds; of the right medial midfoot and the right lateral midfoot. These do not have swelling, drainage, erythema or heat. There is bilateral lower extremity edema most notable on the left no other joint tenderness. BACK: Nontender without deformity or crepitance. No flank tenderness. NEURO: AOx3. SKIN: No rash or erythema of visible areas Initial Vital Signs Initial Vital Signs: Vital Signs Temperature 97.7 F 12/08/19 16:03 Pulse Rate 73 12/08/19 16:03 Respiratory Rate 18 12/08/19 16:03 Blood Pressure 122/58 L 12/08/19 16:03 Pulse Oximetry 99 12/08/19 16:03 <Chico Nolasco DO - Last Filed: 12/08/19 23:50> Initial Vital Signs Initial Vital Signs: Vital Signs Temperature 97.7 F 12/08/19 16:03 Pulse Rate 73 12/08/19 16:03 Respiratory Rate 18 12/08/19 16:03 Blood Pressure 122/58 L 12/08/19 16:03 Pulse Oximetry 99 12/08/19 16:03 Course <Blanca Wilson PA-C - Last Filed: 12/08/19 22:40> Course Course Narrative: Patient has been getting good care from her primary care and orthopedic team, including a visit yesterday recent antibiotic change. She has no new symptoms that brought her to the emergency department today except that she had a lot of pain with ambulation and difficulty and down stairs so she had to call 911 to get help. Checking labs today however I think that largely this may be a social issue and a question of whether she is able to be at home on her own at this time even with the nursing help she has been getting for her wound care coming in frequently. RN spoke with patient's daughter who asked for a social work consult, patient does have a licensed social worker who comes to see her but daughter is concerned that she may need additional help at home specifically at night. Orders Ordered: ED Orders 12/08/19 18:00 Complete Blood Count AUTO DIFF Stat Comprehensive Metabolic Panel Stat Lactate (Lactic Acid) Stat 12/08/19 18:51 Consult to [facility] [place] - [employer] Stat Discontinued Medications Tramadol HCl (Ultram) 50 mg PO NOW ONE Stop: 12/08/19 21:05 Last Admin: 12/08/19 21:17 Dose: 50 mg Documented by: ADELIA Vital Signs Vital signs: Vital Signs - 8 hr 12/08/19 16:03 12/08/19 16:47 12/08/19 17:00 Temperature 97.7 F Pulse Rate 73 102 H 86 Respiratory Rate 18 Blood Pressure 122/58 L Pulse Oximetry 99 100 100 12/08/19 17:30 12/08/19 17:54 12/08/19 18:00 Temperature Pulse Rate 87 98 H 85 Respiratory Rate Blood Pressure 102/52 L 109/58 L Pulse Oximetry 100 99 98 12/08/19 18:30 12/08/19 19:00 12/08/19 19:30 Temperature Pulse Rate 83 77 74 Respiratory Rate Blood Pressure 111/56 L 118/56 L 117/54 L Pulse Oximetry 99 99 98 12/08/19 20:00 12/08/19 20:30 12/08/19 21:00 Temperature Pulse Rate 71 79 90 Respiratory Rate 17 Blood Pressure 117/53 L 106/55 L 109/54 L Pulse Oximetry 98 99 99 <Chico Nolasco DO - Last Filed: 12/08/19 23:50> Orders Ordered: ED Orders 12/08/19 18:00 Complete Blood Count AUTO DIFF Stat Comprehensive Metabolic Panel Stat Lactate (Lactic Acid) Stat 12/08/19 18:51 Consult to [facility] [place] - [employer] Stat Discontinued Medications Tramadol HCl (Ultram) 50 mg PO NOW ONE Stop: 12/08/19 21:05 Last Admin: 12/08/19 21:17 Dose: 50 mg Documented by: ADELIA Vital Signs Vital signs: Vital Signs - 8 hr 12/08/19 16:03 12/08/19 16:47 12/08/19 17:00 Temperature 97.7 F Pulse Rate 73 102 H 86 Respiratory Rate 18 Blood Pressure 122/58 L Pulse Oximetry 99 100 100 12/08/19 17:30 12/08/19 17:54 12/08/19 18:00 Temperature Pulse Rate 87 98 H 85 Respiratory Rate Blood Pressure 102/52 L 109/58 L Pulse Oximetry 100 99 98 12/08/19 18:30 12/08/19 19:00 12/08/19 19:30 Temperature Pulse Rate 83 77 74 Respiratory Rate Blood Pressure 111/56 L 118/56 L 117/54 L Pulse Oximetry 99 99 98 12/08/19 20:00 12/08/19 20:30 12/08/19 21:00 Temperature Pulse Rate 71 79 90 Respiratory Rate 17 Blood Pressure 117/53 L 106/55 L 109/54 L Pulse Oximetry 98 99 99 MDM - Recheck/Abnormal Lab/Rx <Blanca Wilson PA-C - Last Filed: 12/08/19 22:40> Lab Data Result diagrams: 12/08/19 18:00 12/08/19 18:00 Labs: Lab Results 12/08/19 12/08/19 12/08/19 Range/Units 18:00 18:00 18:00 WBC 6.9 (4.5-11.0) X10^3/uL RBC 2.74 L (4.0-5.2) X10^6/uL Hgb 8.6 L (12.0-16.0) g/dL Hct 27.0 L (36-46) % MCV 98.3 (80-100) fL MCH 31.6 (26-34) PG MCHC 32.1 (30-36) % RDW 17.4 H (11.6-14.8) % Plt Count 274 (150-400) X10^3/uL Neut % (Auto) 74.6 (50-75) % Lymph % (Auto) 12.9 L (25-40) % [place] % (Auto) 10.6 (3-14) % Eos % (Auto) 1.6 L (2-4) % Baso % (Auto) 0.3 (0-2) % Neut # (Auto) 5100 (7230-4666) /uL Lymph # (Auto) 900 L (4406-9193) /uL [place] # (Auto) 700 (0-900) /uL Eos # (Auto) 100 (0-450) /uL Baso # (Auto) 0 (0-100) /uL Sodium 140 (137-145) mmol/L Potassium 4.0 (3.4-5.1) mmol/L Chloride 95 L (98-107) mmol/L Carbon Dioxide 39 H (22-32) mmol/L BUN 22 H (7-17) mg/dL Creatinine 0.93 (0.52-1.04) mg/dL Estimated GFR 58.2 L (>60) mL/min BUN/Creatinine Ratio 23.7 H (6-22) Glucose 108 (80-110) mg/dL Lactate 0.6 L (0.7-2.1) mmol/L Calcium 9.8 (8.4-10.2) mg/dL Total Bilirubin 0.4 (0.2-1.3) mg/dL AST 23 (14-36) IU/L ALT 11 (<35) IU/L Alkaline Phosphatase 85 (38-126) U/L Total Protein 6.3 (6.3-8.2) g/dL Albumin 3.3 L (3.5-5.0) g/dL Globulin 3.0 (1.7-4.1) g/dL Albumin/Globulin Ratio 1.1 (1.0-2.8) Urine Dip Bedside Urine Glucose 100 mg/dl Bedside Urine Bilirubin - Negative Bedside Urine Ketone - Negative Urine Specific [place] 1.015 Bedside Urine Occult Blood - Negative Bedside Urine pH 5.5 Bedside Urine Protein - Negative Bedside Urine Urobilinogen - Negative Bedside Urine Nitrite - Negative Bedside Urine Leukocytes - Negative Esterase MDM Narrative Medical decision making narrative: This is a 79-year-old woman with a history of septic arthritis of the ankle, abscess of foot, nonhealing wound, cellulitis, COPD, CHF, chronic low back pain who presents to the emergency department brought in by ambulance with her daughter in attendance with complaints of wanting her foot to be rechecked because she is having a lot of pain with any weight-bearing. She was seen yesterday and had an antibiotic change today, has active treatment ongoing for her foot pain and open wounds. Patient was slated to have a office visit with primary care this afternoon however ended up at the emergency department due to inability to successfully get loaded on to her home stair elevator device, and she called 911 for assistance and came to the emergency department. Evaluation of wounds shows that they have no evidence of worsening infection, labs are obtained which are unremarkable, she has current active management of wound care ongoing on antibiotics, recent antibiotics adjustment per her care team. There is no indication to admit the patient toda y, however social work is consulted and options are discussed in detail with the patient's daughter regarding working to get additional help at home to care for her particularly at this juncture as she is almost nonambulatory and has been advised not to ambulate on her foot at present. She does have regular help at frequent home nurse visit visits and wound care visits as well as 3 family members that are there for approximately 9 hours out of every day. Discussed with the patient and her daughter the need for working to set up additional assistance of present and making a plan for the future considering possibility both of her improving and becoming more ambulatory and of her potentially remaining relatively nonambulatory and or potentially worsening. Patient and daughter understand, there is a plan for getting her home safely tonight with daughter in attendance. They will contact PCP tomorrow and continue to work on getting more assistance as well as chronic pain control for her foot pain and her low back pain. Emergency return precautions provided, all questions answered <Chico Nolasco DO - Last Filed: 12/08/19 23:50> Lab Data Labs: Lab Results 09/16/20 09/16/20 09/16/20 Range/Units 18:00 18:00 18:00 WBC 6.9 (4.5-11.0) X10^3/uL RBC 2.74 L (4.0-5.2) X10^6/uL Hgb 8.6 L (12.0-16.0) g/dL Hct 27.0 L (36-46) % MCV 98.3 (80-100) fL MCH 31.6 (26-34) PG MCHC 32.1 (30-36) % RDW 17.4 H (11.6-14.8) % Plt Count 274 (150-400) X10^3/uL Neut % (Auto) 74.6 (50-75) % Lymph % (Auto) 12.9 L (25-40) % [place] % (Auto) 10.6 (3-14) % Eos % (Auto) 1.6 L (2-4) % Baso % (Auto) 0.3 (0-2) % Neut # (Auto) 5100 (7981-1676) /uL Lymph # (Auto) 900 L (4790-8916) /uL [place] # (Auto) 700 (0-900) /uL Eos # (Auto) 100 (0-450) /uL Baso # (Auto) 0 (0-100) /uL Sodium 140 (137-145) mmol/L Potassium 4.0 (3.4-5.1) mmol/L Chloride 95 L (98-107) mmol/L Carbon Dioxide 39 H (22-32) mmol/L BUN 22 H (7-17) mg/dL Creatinine 0.93 (0.52-1.04) mg/dL Estimated GFR 58.2 L (>60) mL/min BUN/Creatinine Ratio 23.7 H (6-22) Glucose 108 (80-110) mg/dL Lactate 0.6 L (0.7-2.1) mmol/L Calcium 9.8 (8.4-10.2) mg/dL Total Bilirubin 0.4 (0.2-1.3) mg/dL AST 23 (14-36) IU/L ALT 11 (<35) IU/L Alkaline Phosphatase 85 (38-126) U/L Total Protein 6.3 (6.3-8.2) g/dL Albumin 3.3 L (3.5-5.0) g/dL Globulin 3.0 (1.7-4.1) g/dL Albumin/Globulin Ratio 1.1 (1.0-2.8) Urine Dip Bedside Urine Glucose 100 mg/dl Bedside Urine Bilirubin - Negative Bedside Urine Ketone - Negative Urine Specific [place] 1.015 Bedside Urine Occult Blood - Negative Bedside Urine pH 5.5 Bedside Urine Protein - Negative Bedside Urine Urobilinogen - Negative Bedside Urine Nitrite - Negative Bedside Urine Leukocytes - Negative Esterase Discharge Plan Departure Patient Disposition: Home Clinical Impression: Complicated wound infection, Encounter for post surgical wound check, Foot pain, right, pulley worker involved in patient's care Discharge Date/Time: 12/08/19 20:26 Instructions: How to Care for a Surgical Wound, DI for Wound Infection Activity Restrictions/Additional Instructions: Thank you for letting us be part of your care in the emergency department today. Your labs today were looking okay, we did not do any imaging of your foot as you have a known infection and postoperative pain and had recent appointments and are undergoing wound care management for this. I think that it is important that you continue to work with family and social work on developing a good system that works for everyone to make sure that you are getting all the help that you need at home. This might mean that you need some additional help particularly right now as your dealing with decreased mobility and significant pain when you try to walk. I want you to continue the antibiotics that your primary care in orthopedic providers have requested that you take, please try to stay well hydrated. I also recommend you do do physical therapy I know that you are not actively walking much right now but physical therapy can be helpful even if you are in a chair much of the time in order to keep up your strength and help you to heal. Please pay close attention to your symptoms and if you do feel that your developing fevers chills nausea vomiting diarrhea abdominal pain body aches or if the wounds on your foot are changing in nature and you are concerned that your infection could be worsening please do not hesitate to seek medical care, call your provider team or return to the emergency department. There is no evidence of an emergent or life threatening illness at this time, but follow up with your doctor in 1-2 days is recommended nonetheless to continue to rule out serious underlying causes of your symptoms. Please call the office for an appointment. Please return to the Emergency Department for any worsening or persistent symptoms. Please take medications as directed. Prescriptions: No Action latanoprost 0.005 % drops 1 drp ophthalmic (eye) BEDTIME RF: 0 prednisone 20 mg tablet See Rx Instructions .ROUTE .COMPLEX RF: 0 metolazone 5 mg tablet 1.25 mg PO DAILY RF: 0 potassium chloride 20 mEq tablet,ER particles/crystals 40 meq PO DAILY RF: 0 montelukast 10 mg tablet 10 mg PO QPM RF: 0 fluoxetine 20 mg capsule 20 mg PO DAILY RF: 0 spironolactone 50 mg tablet 75 mg PO DAILY RF: 0 bupropion HCl 150 mg tablet extended release 24 hr 150 mg PO QPM RF: 0 budesonide-formoterol [Symbicort] 160-4.5 mcg/actuation HFA aerosol inhaler 1 inh INHALATION BID RF: 0 Spiriva Respimat 2.5 mcg/actuation mist 2 inh INHALATION DAILY RF: 0 Eliquis 5 mg tablet 5 mg PO BID RF: 0 acetaminophen 325 mg Tablet 650 mg PO Q6H PRN (Reason: pain) RF: 0 albuterol sulfate 1.25 mg/3 mL Solution For Nebulization 1.25 mg INHALATION Q6H PRN (Reason: Wheezing) RF: 0 melatonin 3 mg Tablet 3 mg PO BEDTIME PRN (Reason: Insomnia) RF: 0 calcitonin (salmon) 200 unit/actuation [place],Non-Aerosol 1 spray INTRANASAL (ALT) DAILY RF: 0 ferrous sulfate 325 mg (65 mg iron) Tablet 325 mg PO DAILY RF: 0 cholecalciferol (vitamin D3) [Vitamin D3] 125 mcg (5,000 unit) Tablet 5,000 unit PO DAILY RF: 0 albuterol sulfate 90 mcg/actuation Aerosol Powdr Breath Activated 2 inh INHALATION Q4H PRN (Reason: Shortness Of Breath) RF: 0 magnesium oxide 400 mg magnesium Tablet 400 mg PO DAILY RF: 0 [place]-3 1 cap PO DAILY RF: 0 levalbuterol HCl [Xopenex] 1.25 mg/3 mL Solution For Nebulization 1.25 mg INHALATION Q4H RF: 0 prednisone 10 mg tablet 40 mg PO DAILY Qty: 50 RF: 0 ciprofloxacin HCl 250 mg tablet 250 mg PO BID RF: 0 cephalexin 500 mg capsule 500 mg PO RF: 0 Referrals: Josue Menchaca DO [Primary Care Provider] - <Chico Nolasco DO - Last Filed: 12/08/19 23:50> Cosign ED Attending Cosignature Attestation: Dr Nolasco Co-Sign Statement: I was available for consultation during this patient's emergency department visit. This chart is signed by myself for administrative purposes only. I did not have direct contact with this patient during this visit. They were seen independe ntly by the APC.
[2019-12-08 18:17] LABS: Add Manual Diff / Slide Review NO; Basophils Absolute Auto 0 /uL (0-100); Basophils Percent Auto 0.3 % (0-2); Eosinophils Absolute Auto 100 /uL (0-450); Eosinophils Percent Auto 1.6 % (2-4); Hemoglobin 8.6 g/dL (12.0-16.0); Lymphocytes Absolute Auto 900 /uL (1100-4500); Lymphocytes Percent Auto 12.9 % (25-40); Mean Corpuscular HGB Conc 32.1 % (30-36); Mean Corpuscular Hemoglobin 31.6 PG (26-34); Mean Corpuscular Volume 98.3 fL (80-100); Monocytes Absolute Auto 700 /uL (0-900); Monocytes Percent Auto 10.6 % (3-14); Neutrophils Absolute Auto 5100 /uL (1500-7000); Neutrophils Percent Auto 74.6 % (50-75); Platelet Count 274 X10^3/uL (150-400); Red Blood Cell Count 2.74 X10^6/uL (4.0-5.2); Red Cell Distribution Width 17.4 % (11.6-14.8); White Blood Cell Count 6.9 X10^3/uL (4.5-11.0)
[2019-12-08 18:59] LABS: Lactate (Lactic Acid) 0.6 mmol/L (0.7-2.1)
[2019-12-08 19:00] LABS: Alanine Aminotransferase 11 IU/L (<35); Albumin 3.3 g/dL (3.5-5.0); Albumin Globulin Ratio 1.1 (1.0-2.8); Alkaline Phosphatase 85 U/L (38-126); Aspartate Aminotransferase 23 IU/L (14-36); BUN Creatinine Ratio 23.7 (6-22); Bilirubin Total 0.4 mg/dL (0.2-1.3); Blood Urea Nitrogen 22 mg/dL (7-17); Calcium 9.8 mg/dL (8.4-10.2); Chloride 95 mmol/L (98-107); Estimated Glomerular Filt Rate 58.2 mL/min (>60); Glucose 108 mg/dL (80-110); HEMOLYSIS < 15 (0-50); Sodium 140 mmol/L (137-145); Total Protein 6.3 g/dL (6.3-8.2)
[2019-12-08 19:07] LABS: Carbon Dioxide 39 mmol/L (22-32)
--- NOTE | 2019-12-08 19:50 | CM.SWNOTE ---
STAFFING RN note STAFFING RN consult requested for patient. Patient is a 79 y/o female who presents to ED today for leg pain. Patient is asleep when STAFFING RN arrives to patient room, and STAFFING RN meets with patient's daughter/DPOA in waiting room. Patient's daughter Db expresses concern over patient's living situation and plan of care. Patient currently lives at home by herself, and Db informs STAFFING RN that she has arranged a system of family members who each check on patient multiple times daily. Db explains that patient is not currently supposed to be walking due to a wound on her legs, and that patient currently has difficulty transferring from chair to portable toilet. Db explains that patient is also unsteady walking with walker from chair to bed. Patient is on a trilogy machine, and Db expresses concern surrounding patient's dexterity for using machine. Patient is currently engaged in HH services through [facility]. Per Db, patient receives wound care services and PT, but has been declining to engage with PT. Db states that patient has a strong desire to remain in home as long as possible, but Db explains that family is unable to maintain current level of support and are wanting additional assistance. Throughout conversation, Db expresses exhaustion and frustration with the amount of care giving she is doing. STAFFING RN validates and normalizes patients feelings of exhaustion and the dissonance that exists while balancing care giving and other elements of life. STAFFING RN discusses in-home care giving options. Patient will likely be able to afford in home care giving and STAFFING RN provides Db with [employer] guide for local care giving, and discusses intake process for care giving agencies. STAFFING RN and Db discuss patient's home health, and STAFFING RN encourages Db to inquire if there is a STAFFING RN meeting with patient through . STAFFING RN explains potential value in this in terms of long-term care planning and Db informs STAFFING RN she will contact [facility] to inquire about this. STAFFING RN and Db continue to discuss intermediate care goals for patient. STAFFING RN encourages Db to continue to discuss this with patient and family to establish plan for appropriate care throughout patient's life. Db informs STAFFING RN she will meet with patient and family and discuss terminal operator planning. Pl: STAFFING RN will perform post d/c f/u call with patient and family to further discuss care planning and goals. JACKELIN Cordero
[2019-12-08] MEDS: TRAMADOL 50 MG TABLET PO (21:17)
== END 2019-12-08 20:26 | disposition home or self-care (01) ==
PROVIDERS: Emergency Provider Student in an Organized Health Care Education/Training Program; PCP Family Medicine
DX: T81.49XA Infection following a procedure, other surgical site, initial encounter (principal); E66.9 Obesity, unspecified
CPT/HCPCS: 36415; 80053; 81003; 83605; 85025; 99283

== ENCOUNTER → 2019-12-15 07:06 | Outpatient (CLI) | payer MEDICARE, OTHER, SELFPAY ==
[2019-08-02 00:11] VITALS: BMI 47.2
[2019-08-13 01:47] VITALS: PULSE 93; RESP 34; O2SAT 95
--- NOTE | 2019-12-15 | DI.MRI.S_ITS ---
PROCEDURE: MR FOOT RT WO/W CON INDICATIONS: CUTANEOUS ABSCESS TECHNIQUE: Noncontrast coronal T1 spin echo and STIR, sagittal T1 spin echo with fat saturation and STIR, axial T1 spin echo and T2 fast spin echo with fat saturation. After the administration of contrast, axial/sagittal/coronal T1 spin echo with fat saturation through the right foot . COMPARISON: [facility], CR, XR FOOT RT 2V, 12/02/2019, 15:45. FINDINGS: Image quality: Excellent. Bones: Extensive osteoarthritic changes are noted involving with subluxation at navicular cuneiform joints. There is extensive marrow edema throughout navicular bone, cuboid, and cuneiforms. No definite bony erosion is identified. Mild to moderate osteoarthritic changes are noted throughout MTP joints without discrete bony erosion or significant marrow edema. Osteoarthritic changes throughout TMT joints also seen with edema noted involving 2nd through 5th metatarsal bases without discrete fracture line. Soft tissues: There is suggestion of ulceration involving medial aspect of midfoot at the level of medial navicular cuneiform joint. Extensive soft tissue edema and swelling throughout right foot is seen. Ill-defined small fluid pockets are noted deep to the area of ulceration and is medial to the medial navicular cuneiform joint and measures approximately 1.1 centimeter in size and show peripheral enhancement concerning for small abscess collection in this area. There is also suggestion of 2nd 1.1 x 0.6 cm abscess collection over dorsal and medial aspect of navicular bone. Lisfranc ligament and joint is intact. Extensor and flexor tendons shows no gross abnormality. Plantar right foot muscles show no gross signal abnormality. IMPRESSION: 1. Suggestion of ulceration involving medial aspect of midfoot with extensive cellulitis throughout right foot. Tiny peripherally enhancing fluid collections noted medial to navicular bone and medial navicular cuneiform joint concerning for tiny abscess collections. 2. Extensive marrow edema involving navicular bone, medial, middle and lateral cuneiform and cuboid with moderate to severe osteoarthritic changes and subluxation as described above. Finding could represent changes secondary to neuropathic arthropathy. Superimposed osteomyelitis particularly involving navicular bone and medial cuneiform cannot be excluded. 3. Mild forefoot joint osteoarthritis. No fracture or dislocation. No definite bony erosive changes. No significant marrow edema. Dictated by: Christiano Sutton M.D. on 12/15/2019 at 11:01 Approved by: Christiano Sutton M.D. on 12/15/2019 at 11:11
== END ==
PROVIDERS: PCP Family Medicine; Referring Provider Orthopaedic Surgery Adult Reconstructive Orthopaedic Surgery; Visit Provider Orthopaedic Surgery Adult Reconstructive Orthopaedic Surgery
DX: L02.611 Cutaneous abscess of right foot (principal); M19.071 Primary osteoarthritis, right ankle and foot
CPT/HCPCS: 73720

== ENCOUNTER → 2019-12-17 12:50 | Outpatient (CLI) | payer MEDICARE, OTHER, SELFPAY ==
[2019-08-02 00:11] VITALS: BMI 47.2
[2019-08-13 01:47] VITALS: PULSE 93; RESP 34; O2SAT 95
[2019-12-17 13:40] LABS: pH ABG 7.31 (7.35-7.45)
[2019-12-17 13:41] LABS: Fractionated Inspired Oxygen 32; HCO3 ABG 46 mmol/L (22-26); Oxygen Saturation ABG 95 % (95-100); PCO2 ABG 90.5 mmHg (35-45); PO2 ABG 88 mmHg (80-100); TCO2 ABG 48 mmol/L (21-31)
== END ==
PROVIDERS: PCP Family Medicine; Referring Provider Family Medicine; Visit Provider Family Medicine
DX: J44.9 Chronic obstructive pulmonary disease, unspecified (principal); J96.90 Respiratory failure, unspecified, unspecified whether with hypoxia or hypercapnia
CPT/HCPCS: 36600; 82805

== ENCOUNTER → 2019-12-20 14:07 | Outpatient (CLI) | payer MEDICARE, OTHER, SELFPAY ==
[2019-08-02 00:11] VITALS: BMI 47.2
[2019-08-13 01:47] VITALS: PULSE 93; RESP 34; O2SAT 95
[2019-12-22 08:34] LABS: COVID19 Sendout Not Detected (Not Detect)
== END ==
PROVIDERS: PCP Family Medicine; Visit Provider Physician Assistant
DX: Z11.59 Encounter for screening for other viral diseases (principal)
CPT/HCPCS: 87635

== ENCOUNTER 2019-12-24 08:18 | Inpatient (IN) | payer MEDICARE, OTHER, SELFPAY ==
[2019-08-02 00:11] VITALS: BMI 47.2
[2019-08-13 01:47] VITALS: PULSE 93; RESP 34; O2SAT 95
[2019-12-20 13:25] VITALS: BMI 39.0
[2019-12-23] VITALS (12 sets, daily range): BP systolic 106–130; BP diastolic 56–79; PULSE 69–102; RESP 16–20; TEMP 36.4–37.3; O2SAT 91–100; BMI 39.8
[2019-12-23] MEDS: LACTATED RINGERS 1,000 ML 42 ML IV (12:52)
--- NOTE | 2019-12-23 13:47 | P.OP.PRE_ITS ---
Pre-operative Note COVID-19 COVID-19 status: Negative Result date/Date tested (Pos, Neg/Pending): 12/20/19 Interval Note History & Physical reviewed/Exam performed by Physician: Yes Changes to H&P: No H&P completed within 30 days and has changed as indicated here:: Patient is a 79-year-old female who presented back in July with a dorsal abscess to her right foot. She was septic appearing at the time required multiple washouts of her foot as well as subsequently her right ankle. Cultures grew back Staph aureus which was pansensitive. She was treated with wound VAC which was then transition to other wound care. She was doing well until about a month ago when I saw her she had increased erythema around the medial aspect of the foot as well as the lateral aspect of the foot she was initiated on antibiotics and her PCP had gotten a culture at that time which grew back Pseudomonas. She was initiated on oral antibiotics including ciprofloxacin and she had been improving although she has not had complete resolution of her erythema. Last week an MRI was ordered and demonstrated a small abscess pocket along the navicular. In addition she has osteomyelitis through the navicular and medial cuneiform. I had a long discussed with the patient over the phone regarding her MRI findings and the need for irrigation debridement. We discussed the risks and benefits of irrigation debridement including the risks of continued infection need future surgeries delayed wound healing and potentially amputation. Patient demonstrates understanding the risks and wished to proceed with right foot absce ss I&D as well as bone biopsy for culture.
--- NOTE | 2019-12-23 14:29 | SUR.OPER ---
Supine on padded OR bed, head on pillow, arms secured on padded arm boards at <90 degrees abduction, legs uncrossed, safety belt at abdomen, tape over blanket over lower left leg, right leg controlled by surgeon.
--- NOTE | 2019-12-23 14:41 | PM.OP.1 ---
Operative Date/Time/Diagnoses Date of procedure: 12/23/19 Time of procedure: 14:41 Pre-op diagnosis: right foot medial abscess and osteomyelitis Post-op diagnosis: same Procedure & Clinicians Procedure: Irrigation and debridement of right medial foot abscess, bone biopsy of medial cuneiform Same procedure as scheduled: Yes Indications: Patient is a 79-year-old female with a history of right foot abscess which was taken to the OR several times back in July she was subsequently doing very well and only thigh completed finished her healing of her foot wounds when she developed some erythema around the medial foot wound and increasing pain. Oral antibiotics failed to resolve the erythema subsequent MRI demonstrated small abscess along the navicular and medial cuneiform as well as concerns for osteomyelitis. She has taken the OR for irrigation debridement of abscess as well as for bone biopsy for culture. Surgeon: Anjel Rm Anesthesia Type: General Operative Notes Findings: Small right foot abscess along the medial cuneiform and navicular Closure Type: non-primary Estimated Blood Loss (mL): 25 Procedure in detail: Patient is was met in the preoperative holding area where the site and side of surgery were marked by . Consent was reviewed the patient clean the risks and benefits of surgery. The risks were discussed including delayed wound healing, continued infection, need for future surgeries, incomplete relief of symptoms, damage to local structures such as vessels nerves, possible need for future amputation, etc. Patient demonstrates understanding and wishes to proceed. Patient was then brought back into the operating room where she transferred on the operating room table and induced under general anesthesia. The right lower extremity was then prepped and draped in normal sterile fashion. A surgical time-out was performed verifying site and side of surgery. The medial wound was not actively draining. The area with granulation tissue that had not yet completely healed was the area we decided to ellipse. A 2 cm long by 0.5 cm wide ellipse was taken out of the the skin and sharp dissection was taken down to the level of the medial cuneiform and navicular. There was some necrotic appearing tissue and scan abscess was encountered this was cultured as well as a bone biopsy taken from the medial cuneiform. All necrotic appearing tissue was thoroughly debrided. No tracking pockets were encountered. No copious purulence was noted. The wound was then thoroughly irrigated with 3 L of normal saline through cysto tubing. All tissue beds left behind were bleeding and well perfused. Quarter-inch plain packing was then used to pack into the wound followed by 4 x 4 dressings a Kerlix and a Coban dressing. Complications: none Post-operative Condition: stable Disposition: PACU Plan for aftercare: Patient will require PICC for long-term antibiotics, Ancef and vancomycin will be started tonight for broad-spectrum these will be changed per culture results, weight bearing for transfers only
--- NOTE | 2019-12-23 15:45 | SUR.PHASEI ---
Pt transported up stairs to room at 2/l nasal cannula, left with Liliana RN in stable condition, bed low, locked and scd's on.
[2019-12-23] MEDS: LACTATED RINGERS 1,000 ML 125 ML IV (16:27)
[2019-12-23] MEDS: CEFAZOLIN 2 GM/100 ML FROZ.PIGGY IV ×2 (16:31→23:17)
[2019-12-23] MEDS: VANCOMYCIN 1,500 MG/300 ML FROZ.PIGGY 200 MG IV (17:08)
[2019-12-23] MEDS: MONTELUKAST 10 MG TABLET PO (17:08)
--- NOTE | 2019-12-23 17:22 | PC.NURSE ---
Addendum entered by Liliana Mckeon R.N. 12/23/19 20:44: As pt has a 22 gauge iv to left forearm, vancomycin was infused @ a slower rate 125 cc/hr without difficulty. Addendum entered by Liliana Mckeon R.N. 12/23/19 20:32: Refuses to get OOB to toilet. Requests bedpan. Able to roll side to side. Admits to return of sensation to feet BL rating right foot surgical pain 09/30. Meds as per emar. James. has prepared pt's triology and pt places mask on independently and starts machine. Requests not to wear oximeter, declines ice to foot. BL calf scd's in place. Original Note: Pt to room 208 from PACU drowsy, but easily rousable. States feels woozy with eyes open, but denies nausea. 02 3L per nc as per home routine. Continuous oxygen monitor in place with oxygen level 92-94%. Pt's own trilogy set up by James. Pt denies pain and states feet BL are numb. States baseline is full sensation to feet BL. Is able to ankle wave and wiggle toes. Toes to feet BL are equally warm to touch with slow cap refill > 2 seconds. BL calf scd's in place. Bedpan use as pt reports needs to void and feels unable to mobilize at this time. Pt is able to roll side to side for bedpan placement. Does report back pain with movement, but denies @ rest. Coban dressing intact to right foot/ankle. Pt denies surgical pain right foot.
--- NOTE | 2019-12-23 17:41 | PT-IP ANOTE ---
PT orders received at 1500 as pt just arriving to floor. Not yet able to participate with PT. Will plan evaluation for 12/24/19.
[2019-12-23] MEDS: ACETAMINOPHEN 325 MG TABLET 500 MG PO (20:08)
[2019-12-23] MEDS: allopurinoL 100 MG TABLET PO (20:09)
[2019-12-23] MEDS: APIXABAN 5 MG TABLET PO (20:10)
[2019-12-23] MEDS: carvediloL 3.125 MG TABLET 6.25 MG PO (20:10)
[2019-12-23] MEDS: DOCUSATE 100 MG CAPSULE PO (20:11)
[2019-12-23] MEDS: TRAMADOL 50 MG TABLET PO (20:11)
[2019-12-23] MEDS: LATANOPROST 0.005% OPHTH 2.5 ML 1 DROPS EYE-BOTH (20:11)
[2019-12-23] MEDS: FLUTICASONE/SALMETEROL 250/50 60 PUFF DISKUS INH (20:12)
[2019-12-23] MEDS: OXYCODONE IR 5 MG TABLET PO ×2 (22:08→23:38)
[2019-12-23] MEDS: MELATONIN 3 MG TABLET PO (22:08)
[2019-12-24] VITALS (12 sets, daily range): BP systolic 101–121; BP diastolic 60–77; PULSE 75–116; RESP 10–20; TEMP 35.8–37.1; O2SAT 91–98; BMI 39.8
--- NOTE | 2019-12-24 01:02 | PC.NURSE ---
Addendum entered by Renee Soto R.N. 12/24/19 05:30: Noted when taking vitals that patient's O2 sat intermittently dropping down into low 80's. Called RT who advised to increase oxygen to 4L/min to try to keep at 88% and now seems to be maintaining in upper 80's. Original Note: At shift change patient complaining of 10/10 right foot pain despite having received scheduled Tylenol + scheduled Tramadol and 5mg of Oxycodone prior. Dr Rm contacted and informed of uncontrolled pain. New order for pain medication received and MD asked RN to unwrap/rewrap Coban so not as tight. Patient was medicated with additional 5mg Oxycodone and Coban rewrapped. Assessment done at 2350. IPatient is alert and oriented. Breath sounds diminished with short inspiratory phase and inspiratory crackles in bilateral bases. Using home trilogy with oxygen bled in at 3L/min with sat of 91%. HR irregular with rate of 102; hx of afib. Denies nausea. BT present and is passing flatus. Denies dysuria, frequency or urgency with urination. Has been refusing to get up to use bathroom so instead is using bedpan. Is able to move self in bed. Gait not assessed at this time; activity level is bedrest with BRP. Noted bruising on all extremities and abdomen. Wearing bilateral calf SCD's. Denies any numbness of feet. Does have 2+ bilateral foot/ankle edema. Fall risk score is moderate and bed alarm is activated.
[2019-12-24] MEDS: OXYCODONE IR 10 MG TABLET PO ×2 (02:30→10:00)
[2019-12-24] MEDS: LACTATED RINGERS 1,000 ML 125 ML IV (03:58)
[2019-12-24] MEDS: PANTOPRAZOLE 40 MG TABLET PO (05:58)
[2019-12-24 06:22] LABS: Hematocrit 27.1 % (36-46); Hemoglobin 8.5 g/dL (12.0-16.0); Mean Corpuscular HGB Conc 31.3 % (30-36); Mean Corpuscular Hemoglobin 31.1 PG (26-34); Mean Corpuscular Volume 99.4 fL (80-100); Platelet Count 250 X10^3/uL (150-400); Red Blood Cell Count 2.72 X10^6/uL (4.0-5.2); Red Cell Distribution Width 16.8 % (11.6-14.8); White Blood Cell Count 6.8 X10^3/uL (4.5-11.0)
[2019-12-24] MEDS: FLUTICASONE/SALMETEROL 250/50 60 PUFF DISKUS INH ×2 (07:52→19:28)
[2019-12-24] MEDS: TIOTROPIUM BROMIDE 18 MCG INHALER INH (07:53)
--- NOTE | 2019-12-24 08:44 | DI.RAD.S_ITS ---
PROCEDURE: XR CHEST FOR PICC 1V INDICATIONS: line placement COMPARISON: Merged With [facility], CR, XR CHEST 1V, 08/05/2019, 22:36. FINDINGS: PICC was placed by the intravenous therapy team from the left side. Fluoroscopic spot film demonstrates the tip of PICC projecting to the area of proximal/mid SVC. Kyphosis plasty/vertebroplasty changes are noted within the thoracolumbar spine. IMPRESSION: Tip of PICC projects to the area of proximal/mid SVC. Dictated by: Daisy Araya M.D. on 12/24/2019 at 9:15 Approved by: Daisy Araya M.D. on 12/24/2019 at 9:16
--- NOTE | 2019-12-24 09:08 | P.PN_ITS ---
Subjective Subjective Date Patient Seen: 12/24/19 Time Patient Seen: 09:08 Interval history: Patient is POD#1 s/p I&D right medial foot abscess, bone biopsy of medial cuneiform with Dr. Rm. Patient had some pain issues overnight but states Oxycodone is helping. No other complaints. Exam Vital Signs (past 8 hours): - 12/24/19 05:50 12/24/19 08:05 12/24/19 08:21 Temperature 98.8 F 96.5 F L Pulse Rate 93 H 75 Respiratory Rate 18 16 Blood Pressure 101/60 120/71 Pulse Oximetry 93 98 95 Oxygen Delivery Method Nasal Cannula Oxygen Flow Rate 3 Narrative Exam Narrative: 79 year old female resting in bed alert and oriented in no acute distress. Dressing in place over right ankle is CDI. Patient able to flex and extend the toes. Brisk capillary refill. Sensation intact. Objective Labs Result Diagrams: 12/24/19 05:50 Labs: Laboratory Results - last 24 hr 12/24/19 05:50 WBC 6.8 RBC 2.72 L Hgb 8.5 L Hct 27.1 L MCV 99.4 MCH 31.1 MCHC 31.3 RDW 16.8 H Plt Count 250 Assessment & Plan Assessment & Plan narrative: Patient doing well postop. Dr. Rm has consulted with ID at [facility] who are recommending IV Cefazolin 1-2gm Q8hrs which will be dosed based on renal function. CMP ordered to evaluate this. PICC line ordered today, anticipate length of treatment for 6 weeks. She will require twice weekly CBC with diff, CMP, CRP, ESR. She is weight bearing only for transfers. Anticipate discharge once PICC in place and cultures are finalized. Quality VTE Deep Vein Thrombosis/Pulmonary Embolism Present on Admission: No
[2019-12-24 09:26] LABS: Alanine Aminotransferase 11 IU/L (<35); Albumin 3.4 g/dL (3.5-5.0); Albumin Globulin Ratio 1.3 (1.0-2.8); Alkaline Phosphatase 90 U/L (38-126); Aspartate Aminotransferase 25 IU/L (14-36); BUN Creatinine Ratio 22.8 (6-22); Bilirubin Total 0.4 mg/dL (0.2-1.3); Blood Urea Nitrogen 21 mg/dL (7-17); Calcium 9.9 mg/dL (8.4-10.2); Chloride 91 mmol/L (98-107); Estimated Glomerular Filt Rate 58.9 mL/min (>60); Globulin 2.7 g/dL (1.7-4.1); Glucose 94 mg/dL (80-110); HEMOLYSIS < 15 (0-50); Potassium 3.9 mmol/L (3.4-5.1); Sodium 137 mmol/L (137-145); Total Protein 6.1 g/dL (6.3-8.2)
[2019-12-24 09:39] LABS: Carbon Dioxide 44 mmol/L (22-32)
[2019-12-24] MEDS: ACETAMINOPHEN 325 MG TABLET 500 MG PO ×2 (09:58→21:24)
[2019-12-24] MEDS: TRAMADOL 50 MG TABLET PO (10:00)
[2019-12-24] MEDS: allopurinoL 100 MG TABLET PO ×2 (10:01→21:25)
[2019-12-24] MEDS: APIXABAN 5 MG TABLET PO ×2 (10:01→21:25)
[2019-12-24] MEDS: carvediloL 3.125 MG TABLET 6.25 MG PO ×2 (10:02→21:26)
[2019-12-24] MEDS: FERROUS SULFATE 325 MG TABLET PO (10:03)
[2019-12-24] MEDS: DOCUSATE 100 MG CAPSULE PO ×2 (10:03→21:14)
[2019-12-24] MEDS: FLUoxetine 10 MG CAPSULE PO (10:04)
[2019-12-24] MEDS: predniSONE 1 MG TABLET 4 MG PO (10:04)
[2019-12-24] MEDS: FUROSEMIDE 20 MG TABLET PO (10:04)
--- NOTE | 2019-12-24 10:11 | PT.IIE ---
Current Diagnoses Cutaneous abscess of right foot (12/24/19) Surgery Performed Operation Date: 12/23/19 12:45 Actual Procedures p I&D foot abscess & bone biopsy(Right) - Anjel Rm MD Surgical History (Last Updated 12/20/19 @ 13:47 by Sun Benito, RN) History of incision and drainage (Acute 2019) Medical History (Last Updated 12/20/19 @ 13:59 by Sun Benito, RN) Anemia (Acute) Atrial fibrillation (Acute) Cardiomegaly (Acute) Congestive heart failure (Acute) COPD (chronic obstructive pulmonary disease) (Acute) Depression (Acute) Diabetes (Acute) Hospitalization or health care facility admission within last 6 months (Acute) Hypercapnic respiratory failure (Acute 07/2019) JEANIE on CPAP (Acute) Osteoarthritis (Acute) PAF (paroxysmal atrial fibrillation) (Acute) Pulmonary hypertension (Acute) Ulcerative colitis (Acute) Physical Therapy Inpatient Evaluation/Re-Eval M1 PT/OT-IP Prior Functional Status Start: 12/24/19 12:13 Freq: NEEDED Status: Active Protocol: Document 12/24/19 10:11 AB (Rec: 12/24/19 12:39 AB [email or web address]) Medical Review Prior Functional Status Medical History Reviewed Yes Communication able to make needs known Mobility and Gait pt was admitted to [facility] last august 10, 2019 for R foot I&D and then transferrred to [place] in [place]. pt stated that prior to july hospitalization, she is modifiedn independent with all mobilities without AD indoors but uses 4WW for outdoor moblity. Social History Household Members none Living Arrangements House Number of Floors (Floors) Two Floors Number of Stairs To Enter/Railing? Son stated that pt will stay with him and he can assist pt. pt lives on a 2 level house but has a chair lift to get to 2nd level of the house Home Environment Standard Height Toilet,Walk in Shower Home Equipment Front Wheel Walker,Manual Wheelchair,Raised Toilet Seat w/Armrests,Shower Seat with Backrest,Hand Held Shower,Grab Bars In Shower Additional Social History Comment Has R side bed rail M2 PT-IP Current Condition Start: 12/24/19 12:13 Freq: NEEDED Status: Active Protocol: Document 12/24/19 10:11 AB (Rec: 12/24/19 12:39 AB [email or web address]) Physical Therapy Current Condition Current Condition Evaluation Date 12/24/19 Treatment Diagnosis R foot abscess/osteomyelitis s /p I&D; generalized weakness Onset Date 12/24/19 Weight Bearing Status Allowed Weight Bearing Amount (enter % per Dr. Rm's order: wegith or #) (%) bear for transfers only M3 PT-IP Subjective Start: 12/24/19 12:13 Freq: NEEDED Status: Active Protocol: Document 12/24/19 10:11 AB (Rec: 12/24/19 12:39 [email or web address]) Subjective Physical Therapy Visit Type Type Initial Evaluation Visit Start Time 10:11 Visit Stop Time 11:08 Total Visit Minutes 33 Notes pt seen for split visits: 1011 -1030 and 1054 to 1108 Physical Therapy Visit Comments Patient Comments pt is agreeable to do PT. Therapy Pain Assessment Pain When Pain Assessed At Rest Pain Present Pain Present Pain Reported Location Right Foot Intensity 4 Scale Used Numeric (0 - 10) Pain Management Techniques Modification of Treatment,Re- positioning,Timing of Activity with Medications M4 PT-IP Mobility and Gait Start: 12/24/19 12:13 Freq: NEEDED Status: Active Protocol: Document 12/24/19 10:11 AB (Rec: 12/24/19 12:39 [email or web address]) PT-Bed Mobility Assessment Sit to Supine Sit to Supine Minimal Assistance,1 Person Assistance,Head of Bed Elevated,Bedrails PT-Transfer Assessment Sit to and From Stand Sit to and from Stand Moderate Assistance,1 Person Assistance,Use of Upper Extremities Equipment Transfer Assistive Device Front Wheeled Walker Orthotic/Prosthetic Devices or Brace: No Transfers Transfer Destination Chair Transfer Technique Stand Step Pivot Transfer Ability Level of Assist Moderate Assistance,1 Person Assistance,Use of Upper Extremities Comments Mobility Comments educated pt on weight bearing precautions and only can weight bearing for transfers only. completed bed mobility supine to sit min A and cues and pt used bed rail for support. pt was able to sit on EOB SBA. completed sit to stand mod A and cues and transferred to chair using FWW mod A and cues . pt has decrease LE elevation when taking steps to the chair. Gait Assessment Comments Gait Comments not assessed: pt can only weight bear on RLE for transfers only and will not be able to maintain NWB on RLE if ambulation is attempted due to weakness and unsteadiness. PT-Balance Assessment Sitting Balance and Reactions Static Sitting Balance Ability Good Dynamic Sitting Balance Ability Good Standing Balance and Reactions Static Standing Balance Ability Fair Dynamic Standing Balance Ability Poor Device Used FWW M5 PT-IP Objective Assessments Start: 12/24/19 12:13 Freq: NEEDED Status: Active Protocol: Document 12/24/19 10:11 AB (Rec: 12/24/19 12:39 AB [id number]) Orientation Orientation/Cognition Level of Alertness Lethargic Orientation Name Safety Awareness Decreased Safety Awareness Memory Description Short Term Impaired Gross Range of Motion Lower Extremity ROM Assessment Within Functional Limits Strength Lower Extremity Strength Assessment Right Impaired Hip 3/5 Knee 3+/5 Coordination Assessment Gross Coordination Gross Coordination WNL Muscle Tone Muscle Tone WNL Yes M6 PT-IP Treatment Start: 12/24/19 12:13 Freq: NEEDED Status: Active Protocol: Document 12/24/19 10:11 AB (Rec: 12/24/19 12:39 AB [email or web address]) Physical Therapy Treatment Education Education Provided Weight Bearing Status,Safety M7 PT-IP Assessment and Plan Start: 12/24/19 12:13 Freq: NEEDED Status: Active Protocol: Document 12/24/19 10:11 AB (Rec: 12/24/19 12:39 AB [email or web address]) PT Summary Assessment and Plan Potential Rehabilitation Potential Good Status of Condition at Evaluation Evolving Summary Impairments Pain,ROM,Strength,Balance, Coordination,Sensation,Tone, Cognition,Bed Mobility, Transfers,Gait,Activity Tolerance Assessment Summary pt requiring mod A with mobility and plans to go home with his son to assist her. will conduct caregiver training when appropriate. will continue to assess progress. pt will need homehealth PT. Goals Bed Mobility Goal Standby Assistance Transfer Goal Standby Assistance,Front Wheeled Walker Days to Meet Goals 5 Frequency of Treatment Frequency Of Treatment Once a Day Treatment Plan Physical Therapy Treatment Plan Bed Mobility Training,Transfer Training,Gait Training, Therapeutic Exercise,Balance Retraining,Post Op Education, Discharge Planning,Hot or Cold Pack,Neuromuscular Re-ed, Coordination Retraining Other Recommendations and Next Treatment transfers, caregiver training Focus when appropriate Recommendations To Nursing Amount of Assist Needed 1 Person Assist Discharge Recommendations PT Discharge Recommendations Home with Assistance,Home Health Transportation Needs at Discharge Private Vehicle
[2019-12-24] MEDS: SODIUM CHLORIDE 0.9% 250 ML 21 ML IV (11:30)
[2019-12-24] MEDS: CEFAZOLIN 2 GM/100 ML FROZ.PIGGY IV ×2 (11:31→18:55)
--- NOTE | 2019-12-24 13:18 | PC.NURSE ---
Day Shift- pt slept in this AM, wearing Trilogy mask with 3.5l bleed in. O2 sat 98%. Pt ate breakfast around 0930. Pt OOB with PT around 1020 to recliner chair, chair alarm on. Pt reports 2/10 pain to right ankle.foot, pain management plan discussed, pt had pain crisis last night and stated it took around 1 hour for her pain to decrease after taking medications. PRN Oxycodone 10mg given at 1000 prior to PT session. Pt is RLE weight bear as tolerated with transfers only. Right foot dressing CDI with coban as outer layer, no drainage shadowing. Dorsal PPP. Pt denies numbness or tingling. Able to wiggle toes. BLE elevated on pillows. BLE pitting 2+ edema to ankle area, dorsal foot and lower legs. Pt wanted to wait to have lunch, pt sleepy, was dripping her soup on her chest that was covered with gown and blankets. Trilogy mask with 3.5L bleed in was placed on while pt naps, pt agrees. Continuous O2 monitor on, O2 sat is 90-93%.
--- NOTE | 2019-12-24 14:36 | CM.DANOTE ---
Discharge Planning/Care Management DCP: assessment: case received, EMR reviewed including most recent stay [facility]: [facility] with [facility] [place]. Met then with pt. Introduced self and role. Pt is a 79 year old female who admitted yesterday for a scheduled R foot I&D. Post op dx: R foot medical abscess and osteomylitis. Payer: Medicare and for Life Admission status: OBS with a change to INPT: 12/23: confirmed by [facility] RN Ricki. Pt is found sitting up in bedside recliner, her home Trilogy in place. She confirms she is to use this whenever she is resting/day or night. Pt very quickly confirmed that it would be fine for this d/c environmental emergencies planner to discuss her case and any d/c plans with her daughter Db/POA: [phone]. Pt did say that she agreed a prison/rehab stay would likely be needed and that [facility] would be her first choice. Referral made to [facility] via face sheet efax and vm to the admission line. Have now spoken with Db and then with her sister in law Maria Victoria Nielsen. Db lives in [place] very near her mother. Maria Victoria and her Karlo Nielsen live in [facility] but though part of the care team at home they are not on the POA list. POA with focus on medical/insurance issues is Abdulaziz Nielsen/[place] cell [phone]. [facility] and after d/c from that setting was placed in a snf setting in [place] (? [facility]? family unsure of the name.) She stayed there until being d/c'd to home with family prn care and [facility] services on November 11. OF NOTE: she has not had a 60 day period of wellness and thus would only have whatever Medicare snf days are left for a snf stay again. P: call Abdulaziz to check on specifics of this and and discuss POC again tomorrow with rounding ortho team. Will be following closely this weekend. CM Discharge Assessment Start: 12/24/19 14:31 Freq: Status: Active Protocol: Document 12/24/19 14:31 ITV (Rec: 12/24/19 14:36 ITV [id number]) Discharge Planning Assessment Advance Directives? Yes History Provided By Patient,Family Member,Medical Record Prior Living Arrangements House Household Members none Comment spouse lives in [place] Independent with ADL's No Patient/Family Preference Senior Living Facility,Home with Home Health Comment likely snf: home with resumption of [facility] and prn family care if able Transportation Arrangement . Review Status In Process Pre-Anesthesia Assessment Start: 12/20/19 13:25 Freq: Status: Complete Protocol: Document 12/20/19 13:25 CAB (Rec: 12/20/19 13:59 CAB [id number]) Pre-Anesthesia Assessment PAC Comment H/H 8.6, C02 39, other abnormals on labs 12/08/19 Patient Information Reviewed Via Chart Review Diagnostic Results BMP/CMP,CBC Comment Labs @ 12/08/19, COVID screen @ 12/20/19-Pending Primary Care Provider Josue Menchaca Seen Specialist in Last 12 Months Yes Specialist Seen Orthopedist Primary Language Kazakh Preferred Language Kazakh Lens Grinding Machine Operator Required No Height 161.29 cm Weight 101.605 kg Body Mass Index (BMI) 39.0 Barriers to Learning Cognitive impairment Hx Anesthesia Reactions 02 dependent, C02 retainer Anesthesia Review Requested No Manager Resource No alcohol intake current alcohol intake frequency 0-2 drinks per day Smoking Status Former smoker Substance Use Type does not use Pain Present Pain Reported Musculoskeletal Symptoms Difficulty Walking,Joint Pain History of Falling (Recent or History of Yes ) Patient is completely paralyzed or No completely immobile Is patient on oxygen? Yes: 02 dependent, C02 retainer Hx Sleep Apnea Yes: CPAP compliance unknown Comment Hx COPD Currently Taking a Beta Miky Yes: Carvedilol Can You Climb a Flight of Stairs Without No SOB Anti-Coagulant Therapy Yes: Eliquis-Unsure what instructions have been given to pt on when to hold Cardiac Testing Echo @ 08/02/19 Hx Pacemaker/ICD No Pacemaker Rep Required? No Urinary Catheter Present No Hx Urinary Self Catheterization No Diabetes Yes HgbA1C 5.4 Date 08/01/19 Patient No Lactating No Hx Drug Resistant Organism Yes: MSSA, right foot 08/17/19 Presence of External or Internal Medical Yes Devices Have you had any close contact with Unknown someone diagnosed with COVID-19? Marital Status / Lives With family Patient Discharge Plan Description Return Home Do You Have Any Spiritual Beliefs That No May Affect Your HC Choices? Do You Have Any Cultural Practices That No May Affect Your HC Choices? Emergency Contact Name Latrice quintero (sister) Db Bustamante (dtr) [phone] Emergency Contact Phone Number [phone] Advance Directives? Yes Power of Academic Records Specialist Yes Power of Academic Records Specialist Name Db bustamante [phone] ( friend) Power of Academic Records Specialist Phone Number [phone]
[2019-12-24] MEDS: MONTELUKAST 10 MG TABLET PO (16:31)
--- NOTE | 2019-12-24 19:34 | PC.NURSE ---
Addendum entered by Liliana Mckeon R.N. 12/24/19 22:53: Continuous pulse oximeter placed on pt's toe while pt asleep. Triology in place with oxygen bled in 90-93%. Addendum entered by Liliana Mckeon R.N. 12/24/19 22:39: Set up for evening meal @ 1900 as per pt request. Pt wakes easily, but has difficulty remaining awake and engaged in conversation. Meal set up for pt. Pt is able to feed self, but dozes off easily. Assisted to return to bed @ hs by AUTOMOTIVE BRAKE SPECIALIST. Pt does void in commode and some onto floor. BL calf scd's replaced while pt in bed. Coban dressing to right foot remains intact. Trilogy placed by R.T. with oxygen bled in. Pt continues to deny pain to right foot. This mortgage loan underwriter held sedating meds including tramadol this shift. Pt does report remembers getting up to chair earlier, but states thought was in bed the rest of this evening when actually pt was up in recliner. Asked pt if felt, loopy and pt agrees. Tylenol only @ this hour with other home meds. Original Note: Pt up in recliner all shift. Very sleepy, but rouses easily to voice. Pt's son has visited this evening shift. Pt denies pain, I feel good. Holding any further sedating meds as pt unable to remain awake for any length of time. Falls asleep with coffee mug in hand as per pt's son's statement. Ate all of lunch late into afternoon so dinner provided later as well. Pt is unable to remain awake to eat this meal. R.T. in to see patient, administer advair and encourage use of I.S. Pt has poor effort with I.S. able to only barely move cylinder. 02 @ 3.5L per nc saturation level 95-96%.
[2019-12-24] MEDS: LATANOPROST 0.005% OPHTH 2.5 ML 1 DROPS EYE-BOTH (21:27)
[2019-12-24] MEDS: SODIUM CHLORIDE 0.9% FLUSH 10 ML IV (21:27)
[2019-12-24] MEDS: MAGNESIUM HYDROXIDE 30 ML UDC PO (23:23)
[2019-12-25] VITALS (11 sets, daily range): BP systolic 96–113; BP diastolic 34–68; PULSE 82–101; RESP 15–24; TEMP 36.2–37.3; O2SAT 91–100
--- NOTE | 2019-12-25 00:28 | PC.NURSE ---
Patient is alert and oriented. Breath sounds with inspiratory crackles at bases and diminished throughout with short inspiratory phase. On oxygen at 3.5L/min on trilogy with oxygen bled in; sat is 92%. HR irregular and tachy at 105 bpm; has hx of afib. Denies nausea. BT hyperactive. Denies dysuria, frequency or urgency with urination. Is able to turn herself. Has been getting up with walker and 1 assist to chair or BSC only. Dressing to right foot is CDI. Non-pitting edema bilateral foot/ankle. Wearing bilateral calf SCD's. Denies pain. Fall risk score is high and bed alarm is activated
[2019-12-25] MEDS: CEFAZOLIN 2 GM/100 ML FROZ.PIGGY IV ×3 (02:06→18:16)
[2019-12-25] MEDS: OXYCODONE IR 10 MG TABLET PO ×3 (02:06→23:46)
[2019-12-25] MEDS: SODIUM CHLORIDE 0.9% FLUSH 10 ML IV ×3 (02:08→21:18)
[2019-12-25] MEDS: PANTOPRAZOLE 40 MG TABLET PO (06:14)
[2019-12-25] MEDS: DOCUSATE 100 MG CAPSULE PO ×2 (08:13→21:18)
[2019-12-25] MEDS: MAGNESIUM HYDROXIDE 30 ML UDC PO (08:13)
[2019-12-25] MEDS: carvediloL 3.125 MG TABLET 6.25 MG PO ×2 (08:14→21:17)
[2019-12-25] MEDS: ACETAMINOPHEN 325 MG TABLET 500 MG PO ×2 (08:16→21:17)
[2019-12-25] MEDS: allopurinoL 100 MG TABLET PO ×2 (08:17→21:17)
[2019-12-25] MEDS: FERROUS SULFATE 325 MG TABLET PO (08:18)
[2019-12-25] MEDS: predniSONE 1 MG TABLET 4 MG PO (08:18)
[2019-12-25] MEDS: FUROSEMIDE 20 MG TABLET PO (08:18)
[2019-12-25] MEDS: APIXABAN 5 MG TABLET PO ×2 (08:18→21:17)
--- NOTE | 2019-12-25 08:59 | OT.IP.EVAL ---
Current Diagnoses Cutaneous abscess of right foot (12/24/19) Surgery Performed Operation Date: 12/23/19 12:45 Actual Procedures p I&D foot abscess & bone biopsy(Right) - Anjel Rm MD Past Medical History (Last Updated 12/20/19 @ 13:59 by Sun Benito, RN) Anemia (Acute) Atrial fibrillation (Acute) Cardiomegaly (Acute) Congestive heart failure (Acute) COPD (chronic obstructive pulmonary disease) (Acute) Depression (Acute) Diabetes (Acute) Hospitalization or health care facility admission within last 6 months (Acute) Hypercapnic respiratory failure (Acute 07/2019) JEANIE on CPAP (Acute) Osteoarthritis (Acute) PAF (paroxysmal atrial fibrillation) (Acute) Pulmonary hypertension (Acute) Ulcerative colitis (Acute) Surgical History (Last Updated 12/20/19 @ 13:47 by Sun Benito RN) History of incision and drainage (Acute 2019) Occupational Therapy Inpatient Evaluation/Re-Eval M1 PT/OT-IP Prior Functional Status Start: 12/24/19 12:13 Freq: NEEDED Status: Active Protocol: Document 12/25/19 10:12 CGR (Rec: 12/25/19 10:37 CGR [id number]) Medical Review Prior Functional Status Medical History Reviewed Yes Communication Pt is an effective verbal communicator. Mobility and Gait Pt was admitted to [facility] last august 10, 2019 for R foot I&D and then transferrred to [facility] in [place]. pt stated that prior to july hospitalization, she is independent with all mobilities without AD indoors but uses 4WW for outdoor moblity. Activities of Daily Living and IADL's Pt states that prior to her July hospitalization she was IND to mod I for ADLs. Social History Household Members none Living Arrangements House Number of Floors (Floors) Two Floors Number of Stairs To Enter/Railing? Pt has a level entry to the bottom floor and a chair lift to her second level. Home Environment Standard Height Toilet,Walk in Shower Home Equipment Front Wheel Walker,Four Wheel Walker,Manual Wheelchair, Raised Toilet Seat w/Armrests, Shower Seat with Backrest,Hand Held Shower,Grab Bars In Shower Employment Status Retired Additional Social History Comment Pt states that her son has come to stay with her (from [place]) to assist her as needed. She initially reported to that she was agreeable to SNF in [place] on [place] but today is refusing to go to a SNF and wants to go home with her son's assist. M2 OT-IP Current Condition Start: 12/25/19 10:12 Freq: Status: Active Protocol: Document 12/25/19 10:12 CGR (Rec: 12/25/19 10:37 CGR [id number]) Occupational Therapy Current Condition Current Condition Evaluation Date 12/25/19 Treatment Diagnosis 12/23 I&D of the R medial foot for abcess Diagnosis Onset Date 12/24/19 Weight Bearing Status Weight Bearing Status Weight Bear as Tolerated Allowed Weight Bearing Amount (enter % WBAT for transfers only per MD or #) (%) progress note. M3 OT- IP Subjective and Pain Start: 12/25/19 10:12 Freq: Status: Active Protocol: Document 12/25/19 10:12 CGR (Rec: 12/25/19 10:37 CGR [email or web address]) OT- Subjective Occupational Therapy Visit Type Type Initial Evaluation Visit Start Time 08:36 Visit Stop Time 08:59 Total Visit Minutes 23 Notes Session cut short d/t MD arrival and changing of dressing. Occupational Therapy Visit Comments Patient Comments I need to go to the bathroom again. OT Pain Assessment Pain When Pain Assessed During Mobility Pain Present Pain Present Pain Reported Location Right Foot Scale Used did not rate Management Techniques Distraction,Modification of Treatment,Re-positioning, Timing of Activity with Medications M4 OT- IP ADL's Start: 12/25/19 10:12 Freq: Status: Active Protocol: Document 12/25/19 10:12 CGR (Rec: 12/25/19 10:37 CGR [id number]) OT [id number] Comments OT Self-Feeding Comments Not meal time OT ADL-Grooming Comments OT Grooming Comments Pt declined to perform at this time OT ADL-Oral Care Comments Oral Care Comments Pt declined to perform at this time OT ADL-Dressing General Eval Lower Body Dressing Ability Total Assistance Areas Needing Assistance Socks OT ADL-Toileting General Evaluation Toileting Ability Standby Assistance Areas Needing Assistance Manage Clothing,Perform Perineal Hygiene Comments OT Toileting Comments Pt transfered from bed to BSC and urinated seated on BSC. Pt stood for pericare. Pt needed set up of the BSC and wet wipe but otherwise was SBA OT ADL-Bathing Comments OT Bathing Comments Not performed M5 OT- IP IADL's Start: 12/25/19 10:12 Freq: Status: Active Protocol: Document 12/25/19 10:12 CGR (Rec: 12/25/19 10:37 CGR [email or web address]) OT-Instrumental Activities of Daily Living Deficits IADL Deficits Identified No Deficits Home Safety Awareness Awareness of Need for Assistance at Home Good Awareness Ability to Problem Solve Emergency Able to Problem Solve Situations Medication Management Medication Management Caregiver Administers Meal Preparation Meal Preparation Caregiver Provides Assist Hospice Nurse Hospice Nurse Caregiver Provides Assist Driving Driving Comments 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 States her son will be able to drive as needed. M6 OT- IP Functional Cognition Start: 12/25/19 10:12 Freq: Status: Active Protocol: Document 12/25/19 10:12 CGR (Rec: 12/25/19 10:37 CGR [email or web address]) Cognitive Factors Limiting Selfcare Function Cognitive Ability Level of Alertness Alert Patient Orientation Name,Age,Birthday,Month,Date, Year,Day of Week,Place, Situation Attention Span Ability Capable of Focused Attention, Capable of Sustained Attention Ability to Follow Commands Able to Follow One Step Commands with Increased Time, Able to Follow One Step Commands with Repetition Memory Description Short Term Impaired Safety Awareness Decreased Ability to Apply Precautions,Underestimates Need for Assistance Cognitive Comments Cognitive Assessment Comments Pt demonstrates STM deficits throughtout session. Pt would benefit from formal cog assessment. OT- Vision and Hearing OT- Hearing Assessment OT- Hearing Assessment WFL OT- Vision Assessment Visual Acuity Glasses All The Time Visual Attentiveness WFL Occular Pursuits WFL Visual Convergence WFL M7 OT- IP Mobility and Balance Start: 12/25/19 10:12 Freq: Status: Active Protocol: Document 12/25/19 10:12 CGR (Rec: 12/25/19 10:37 CGR [email or web address]) OT- Bed Mobility Assessment Supine to Sit Supine to Sit Assist Standby Assistance,Bedrails Scooting Scooting to Edge of Bed Standby Assistance,Bedrails OT-Transfer Assessment Sit to and From Stand Sit to and from Stand Contact Guard Assistance Transfers Transfer Ability Contact Guard Assistance, Minimal Assistance Technique Transfer Destination Bed,Bedside Commode,Chair Transfer Technique Stand Step Pivot Devices Transfer Assistive Devices Gait Belt,Front Wheeled Walker Comments Mobility Comments Pt performed transfers with use of walker and VC for safely and hand placement. Pt needed reminders not to pull up on the walker and was able to push up from the bed and BSC when instructed. Pt did not need physical assist to get into standing but needed physical guideance with hand placement for the walker and safe use of the awlker during transfers. OT- Gait Assessment Comments Gait Ability Comments Not performed, pt is able to WB to the RLE only for transfers per MD note. OT- Balance Assessment Sitting Balance and Reactions Static Sitting Balance Ability Good Dynamic Sitting Balance Ability Good M8 OT- IP Objective Assessments Start: 12/25/19 10:12 Freq: Status: Active Protocol: Document 12/25/19 10:12 CGR (Rec: 12/25/19 10:37 CGR [email or web address]) OT Gross Range of Motion Upper Extremity Range of Motion Assessment Within Functional Limits ROM Impairments Shlds not tested d/t MD arrival. OT Strength Upper Extremity Strength Assessment Within Functional Limits Comments Strength Comments grossly 4/5, shlds not tested d/t MD arrival. OT- Coordination Assessment Upper Extremity Finger to Nose Test Within Functional Limits Finger Tapping Test Within Functional Limits OT-Muscle Tone Assessment Muscle Tone WNL Yes OT Sensation Assessment Edema Edema Absent M9 OT- IP Assessment and Plan Start: 12/25/19 10:12 Freq: Status: Active Protocol: Document 12/25/19 10:12 CGR (Rec: 12/25/19 10:37 CGR [email or web address]) OT Summary Assessment and Plan Potential Rehabilitation Potential Good Analytic Complexity at Evaluation Moderate Summary OT Impairments Pain,Balance,Functional Cognition,Functional Mobility, Grooming,Dressing,Toileting, Bathing,Toilet Transfers, Shower Transfers,Activity Tolerance Progress Towards Goals Slow Progress due to Activity Tolerance Assessment Summary Pt presents as a moderate complexity evaluation s/p admit for R foot I&D. Pt is currently WBAT for transfers only. Pt has poor safety awareness with the walker and will have difficulty with dressing and bathing. Pt states he son will be able to assist her at home and she is refusing SNF. Recommendation at this time is for SNF d/t limited mobility, poor safety awareness, and pt's prior functional status as IND to MOD I. Goals Grooming Goal Independent Dressing Goal Independent Toileting Goal Independent Bathing Goal Independent Toilet Transfer Goal Independent Shower Transfer Goal Independent Days to Meet Goals 20 Frequency of Treatment Frequency Of Treatment Once a Day Treatment Plan OT Treatment Plan ADL Training,Functional Cognition Training,Functional Mobility,Patient/Family Education,Discharge Planning Other Treatment Recommendations and Next Cog testing, ADLs seated at Treatment Focus sink, shower if able. Discharge Recommendations OT Discharge Recommendations SNF Rehab Other Discharge Recommendations Pt would likely progress faster with SNF however, she is currently refusing and requesting to go home with her son's assist. Pt's home is well set up for her needs at this time if the son can provide 24/7 assist. Home Equipment Needs TBD Transportation Needs at Discharge Private Vehicle
--- NOTE | 2019-12-25 09:25 | P.PN_ITS ---
Subjective Subjective Date Patient Seen: 12/25/19 Time Patient Seen: 09:25 Interval history: Doing well. Minimal pain. Working on dispo for IV abx infusion. Exam Vital Signs (past 8 hours): - 12/25/19 04:05 12/25/19 08:14 Temperature 98.7 F Pulse Rate 97 H 95 H Respiratory Rate 15 Blood Pressure 113/68 103/61 Pulse Oximetry 91 Oxygen Delivery Method Nasal Cannula Oxygen Flow Rate 3.5 Narrative Exam Narrative: Dressing changed at bedside. Resolving erythema aroudn the incision. No purulence from the wound. Objective Labs Result Diagrams: 12/24/19 05:50 12/24/19 05:50 Labs: Laboratory Results - last 24 hr 12/24/19 05:50 Sodium 137 Potassium 3.9 Chloride 91 L Carbon Dioxide 44 H* BUN 21 H Creatinine 0.92 Estimated GFR 58.9 L BUN/Creatinine Ratio 22.8 H Glucose 94 Calcium 9.9 Total Bilirubin 0.4 AST 25 ALT 11 Alkaline Phosphatase 90 Total Protein 6.1 L Albumin 3.4 L Globulin 2.7 Albumin/Globulin Ratio 1.3 Assessment & Plan Assessment & Plan narrative: PAtient is a 79 year old female with a history of foot abscess. This was treated with multiple I&Ds and abx. A month ago she developed increased erythema over the medial aspect of the foot. Subsequent MRI demonstrated small abscess and likely osteomyelitis. She is now s/p I&D and bone biopsy. ID from [facility] has recommended cefazolin 2grams Q8hrs. Due to the frequency of infusion she likely needs to be DCed to a SNF. Referral to [facility] has been placed. - continue cefazolin 2 grams Q8hrs - Weight bearing for trasnfers - Dressing change once daily - 03/27 packing - 4 x 4s - Kerlex - light coban wrap Time Spent With Patient Time with patient: Greater than 35 minutes Quality VTE Deep Vein Thrombosis/Pulmonary Embolism Present on Admission: No
[2019-12-25] MEDS: FLUTICASONE/SALMETEROL 250/50 60 PUFF DISKUS INH ×2 (09:26→21:20)
[2019-12-25] MEDS: TIOTROPIUM BROMIDE 18 MCG INHALER INH (09:29)
--- NOTE | 2019-12-25 10:03 | PC.NURSE ---
Addendum entered by Abril Franklin R.N. 12/26/19 06:27: late entry for Sunday 12/24 Pt refused calf scd to right leg, only wanted left leg. Pt stated scd placed too much pressure on her right foot surgical area causing discomfort. Addendum entered by Abril Franklin R.N. 12/25/19 10:05: Dr. Rm also aware of below statements. Original Note: Day SHift- Pt states she takes her scheduled Prozac in the evening at home. Stating this medication makes her sleepy. Held and will change dose to tonight. Upon medication reviewed on Saturday 12/23 with pt and her son Abdulaziz at bedside, pt did not mention taking the Prozac in the evening. Pt states this could be the cause of her sleepiness yesterday. Pt stated I was out of it yesterday. Dr. Rm changed right foot dressing today. Daily dressing changes ordered.
[2019-12-25] MEDS: TRAMADOL 50 MG TABLET PO (10:26)
--- NOTE | 2019-12-25 10:44 | PT.IPTN ---
Current Diagnoses Cutaneous abscess of right foot (12/24/19) Surgery Performed Operation Date: 12/23/19 12:45 Actual Procedures p I&D foot abscess & bone biopsy(Right) - Anjel Rm MD Physical Therapy Treatment Note M2 PT-IP Current Condition Start: 12/24/19 12:13 Freq: NEEDED Status: Active Protocol: Document 12/24/19 10:11 AB (Rec: 12/24/19 12:39 AB [id number]) Physical Therapy Current Condition Current Condition Evaluation Date 12/24/19 Treatment Diagnosis R foot abscess/osteomyelitis s /p I&D; generalized weakness Onset Date 12/24/19 Weight Bearing Status Allowed Weight Bearing Amount (enter % per Dr. Rm's order: wegith or #) (%) bear for transfers only M3 PT-IP Subjective Start: 12/24/19 12:13 Freq: NEEDED Status: Active Protocol: Document 12/25/19 10:44 AB (Rec: 12/25/19 12:03 AB [email or web address]) Subjective Physical Therapy Visit Type Type Treatment Note Visit Start Time 10:44 Visit Stop Time 11:02 Total Visit Minutes 18 Number of PIG CASTING MACHINE OPERATOR Visits 0 Physical Therapy Visit Comments Patient Comments pt is agreeable to do PT Therapy Pain Assessment Pain When Pain Assessed At Rest Pain Present Pain Present Pain Reported Location Right Foot Intensity 8 Scale Used Numeric (0 - 10) Pain Management Techniques Re-positioning,Timing of Activity with Medications M4 PT-IP Mobility and Gait Start: 12/24/19 12:13 Freq: NEEDED Status: Active Protocol: Document 12/25/19 10:44 AB (Rec: 12/25/19 12:03 AB [email or web address]) PT-Transfer Assessment Sit to and From Stand Sit to and from Stand Standby Assistance Equipment Transfer Assistive Device Gait Belt,4 Wheeled Walker Orthotic/Prosthetic Devices or Brace: No Transfers Transfer Destination Bed,Chair Transfer Technique Stand Step Pivot Transfer Ability Level of Assist Standby Assistance,1 Person Assistance,Use of Upper Extremities Comments Mobility Comments pt sitting on chair. stated that she did not like the FWW and prefers a 4WW since she has been using that at home. completed sit to stand from chair SBA but pt presents increase difficulty with task and requires increase to complete. pt was able to completed step transfer using 4WW chair to bed. pt stated that she will be able to manage at home. reminded pt regarding activity restriction on RLE and that the doctor ordered pt to weight bear only for transfers and pt should not ambulate with RLE. informed pt to use her w/c for mobility and only get up when she has to transfer. Pt understood. pt completed sit to stand from bed SBA and transferred back to chair using 4WW SBA. positioned pt on chair. call light and table placed within reach. M5 PT-IP Objective Assessments Start: 12/24/19 12:13 Freq: NEEDED Status: Active Protocol: Document 12/24/19 10:11 AB (Rec: 12/24/19 12:39 AB [id number]) Orientation Orientation/Cognition Level of Alertness Lethargic Orientation Name Safety Awareness Decreased Safety Awareness Memory Description Short Term Impaired Gross Range of Motion Lower Extremity ROM Assessment Within Functional Limits Strength Lower Extremity Strength Assessment Right Impaired Hip 3/5 Knee 3+/5 Coordination Assessment Gross Coordination Gross Coordination WNL Muscle Tone Muscle Tone WNL Yes M6 PT-IP Treatment Start: 12/24/19 12:13 Freq: NEEDED Status: Active Protocol: Document 12/25/19 10:44 AB (Rec: 12/25/19 12:03 AB [id number]) Physical Therapy Treatment Education Education Provided Weight Bearing Status,Safety M7 PT-IP Assessment and Plan Start: 12/24/19 12:13 Freq: NEEDED Status: Active Protocol: Document 12/25/19 10:44 AB (Rec: 12/25/19 12:03 AB [id number]) PT Summary Assessment and Plan Potential Rehabilitation Potential Good Summary Impairments Pain,Strength,Balance,Bed Mobility,Transfers,Gait, Activity Tolerance Progress Towards Goals Slow Progress due to Medical Issues Assessment Summary pt improving with mobility and requiring SBA with transfers. Pt plans to go home and her family will assist her at home . Caregiver training will be conducted when appropriate. Goals Bed Mobility Goal Standby Assistance Transfer Goal Standby Assistance,Front Wheeled Walker Days to Meet Goals 5 Frequency of Treatment Frequency Of Treatment Once a Day Treatment Plan Physical Therapy Treatment Plan Bed Mobility Training,Transfer Training,Gait Training, Therapeutic Exercise,Balance Retraining,Post Op Education, Discharge Planning,Hot or Cold Pack,Neuromuscular Re-ed, Coordination Retraining Other Recommendations and Next Treatment transfers, caregiver training Focus when appropriate Recommendations To Nursing Amount of Assist Needed 1 Person Assist Discharge Recommendations PT Discharge Recommendations Home with Assistance,Home Health Transportation Needs at Discharge Private Vehicle
--- NOTE | 2019-12-25 10:57 | CM.DPC ---
Addendum entered by Amanda Peoples LPN 12/25/19 11:56: Met now at length with Abdulaziz and pt and discussed their d/c plan. Both confirm they understand need for snf setting and both confirm that the preferred facility is [facility]. Trilogy vendor: pt confirms: Farrukh P:[facility] is now updated. She agrees to provide her admission cell # to Abdulaziz/rj as he has questions re the COVID specific policies at [facility]. PASRR: needed Covid: will need updated test tomorrow in prep for the d/c on Friday. Abdulaziz confirms he will be here until Thursday 12/28 at which point he will return to [place]. He will be the primary contact and expects to return as needed to continue to coordinate his mother's care. He states that Db/also FANTASMA and Karlo will continue to be the local contacts but that he functions in the family as the person who is best at details. Pt also confirms that Abdulaziz is the one she looks to for coordination of her care. Original Note: DCP: continued: spoke with [facility] early this morning re the referral sent yesterday. She confirmed they could accept pt but would need Trilogy Vendor as the snf would need to take over Trilogy payments while she was at the snf setting, as part of Medicare regulations. She also confirmed that pt has 43 Medicare snf days left as she did d/c from [facility] snf in late October and thus she has not had the needed 60 day period of wellness that would enable her Medicare days to restart at day 1. Have spoken with pt who this morning is no longer in agreement with a snf setting but also does not seem to grasp the severity of her foot infection. Spoke then with Dr. Rm, here to see pt. He confirmed that he had consulted ID at [facility] and that pt would need 6 weeks of IV antibiotics: every 8 hours: Cefazolin 2 grams. Pt can bear weight for transfers and needs daily dressing changes. Called FANTASMA Nielsen/[place]: [phone]. Introduced self and role and discussed above. Abdulaziz clarifies that he is actually in [place] and has been staying with his mother for the last couple of weeks. I came up to try to get her care sorted out. He noted that he was not surprised that the other family members had not mentioned that he was here and indicated some strained relationships in the family. Dr. mR arrived to CM office during the conversation with Abdulaziz and had lengthy conversation over the phone with him including the gravity of pt's medical situation and need to get the infection under good control. He strongly encouraged snf as OUTPT infusion in hospital setting would not be doable at every 8 hour dosing and home antibiotics would not be covered under the Medicare benefit. Abdulaziz expressed his understanding and said he would be in soon to discuss this with his mother. Plan to meet with him when he gets here.
[2019-12-25] MEDS: MONTELUKAST 10 MG TABLET PO (18:16)
[2019-12-25] MEDS: FLUoxetine 10 MG CAPSULE PO (21:18)
[2019-12-25] MEDS: LATANOPROST 0.005% OPHTH 2.5 ML 1 DROPS EYE-BOTH (21:18)
[2019-12-25] MEDS: BUDESONIDE FORMOTEROL 2 EACH INH (21:22)
[2019-12-26] VITALS (10 sets, daily range): BP systolic 98–127; BP diastolic 54–70; PULSE 84–100; RESP 15–97; TEMP 36.3–37.4; O2SAT 18–98
--- NOTE | 2019-12-26 00:47 | PC.NURSE ---
Addendum entered by Renee Soto R.N. 12/26/19 04:52: States pain in her left foot (unaffected foot) is currently 10/10. No redness noted, no open areas noted. States her right foot aches a little. Foot elevated on pillow and medicated with Oxycodone. Original Note: Patient seen at 2354. Is alert and oriented. Diminished breath sounds throughout with expiratory wheezes. On oxygen at 3L/min per NC with sat of 99%; contacted RT to place patient on home trilogy. HRR tonight but remains tachy in low 100's. BP low at 98/34 but is asymptomatic and has been trending low. BT present and abdomen is soft. Passing flatus but has not had a BM since 12/21; did have both Colace and MOM yesterday and declines offer of prune juice tonight. Denies dysuria, frequency or urgency with urination. Is able to move self in bed. When up is assisted with walker and 1 assist. Complains of 5/10 pain in right foot and 7/10 pain in left foot; SCD's removed as exacerbating pain, and then medicated with Oxycodone. CMS is intact; denies any numbness. Non pitting edema in bilateral feet/ankles. Dressing to right foot is CDI. Fall risk score is high and bed alarm is activated
[2019-12-26] MEDS: CEFAZOLIN 2 GM/100 ML FROZ.PIGGY IV ×3 (02:39→18:49)
[2019-12-26] MEDS: SODIUM CHLORIDE 0.9% FLUSH 10 ML IV ×4 (02:39→22:28)
[2019-12-26] MEDS: OXYCODONE IR 10 MG TABLET PO (04:49)
[2019-12-26] MEDS: PANTOPRAZOLE 40 MG TABLET PO (06:11)
[2019-12-26] MEDS: TIOTROPIUM BROMIDE 18 MCG INHALER INH (08:25)
[2019-12-26] MEDS: BUDESONIDE FORMOTEROL 2 EACH INH ×2 (08:26→21:57)
[2019-12-26] MEDS: FLUTICASONE/SALMETEROL 250/50 60 PUFF DISKUS INH (08:26)
--- NOTE | 2019-12-26 09:41 | PC.NURSE ---
Addendum entered by Abril Franklin R.N. 12/26/19 16:06: Evening RN aware of below and again spoke with pt's son and updated Abdulaziz. Pt not engaging with Abdulaziz either. Abdulaziz expresses that pt has been this way in the past while having to be hospitalized then to a care facility. Abdulaziz expressed wanting someone to come talk with pt, expressed wanting a Psychologist or Psychiatrist. This RN suggested Abdulaziz follow up with pt's PCP who knows her care the most and her medications. No update to Dr. Rm at this time. Addendum entered by Abril Franklin R.N. 12/26/19 15:02: PASQUALE PICC dressing changed, see flowsheet. With Justine PT, ROBERTO CARLOS, and this keno writer / runner. It took approx 30 mins to transfer pt from bed to chair. Pt was very hesitant to move once she was sitting on the edge of the bed. Pt expressed just let me go, I don't want to, I'm going to fall, I'm done, i'm done, Let the lord take me. Lots of encouragement needed and to ask pt to open her eyes and focus. Pt transferred from bed to chair stating she had bilateral foot pain, crying out, i can't do this. Pt said she couldn't move her legs while she was slightly moving one leg then the other while sitting on the edge of bed. Pt settled into recliner chair with bed alarm on. Pt stated she did not believe this RN that her son Abdulaziz was here. This keno writer / runner explained her son has been here since 0900 visiting in/out of room while pt was sleeping and Abdulaziz has tried to talk with her. At this time, Abdulaziz had stepped out of room prior to chair transfer. Pt did not eat breakfast or lunch. has had approx few bites of oatmeal, 1/2 cup coffee and 150 mls of water. Addendum entered by Abril Franklin R.N. 12/26/19 13:52: At 1330-Right foot dressing changed per 's orders in progress notes from 12/24 and 12/25 plus verbal order on 12/24 to perform right foot daily dressing changes. Right foot dressing removed for moderate amount of sero sang drainage saturated onto 4X4 gauzes and kerlix wrap over incision site. Packing removed. Wound cleansed with NS, apprx 10 inches 1/4 inch gauze packing inserted into wound bed, No S/S of infection, wound edges are skin colored, covered with 4X4 gauze, secured with kerlix gauze and coban wrap. Pt slept throughout dressing change. Spoke with pt's son Abdulaziz outside of pt's room, Abdulaziz has concerns regarding pt's sedation, stating her demeanor has changed drastically from yesterday. Pt has not been conversing with Abdulaziz today, this is very unlike her. Abdulaziz stated since she rec'd the news yesterday that she will be going to a SNF for several weeks, this may have a mental component to her sedation and willing to participate with activities today. Plan for PT session with this RN, will monitor and plan to update Dr. Rm today. Addendum entered by Abril Franklin R.N. 12/26/19 13:16: Due to pt being very sleepy during most of shift, AM scheduled medications held and given at 1315. Addendum entered by Abril Franklin R.N. 12/26/19 11:20: Pt awake when Dr. Rm present in room around 1015. pt requesting oatmeal and coffee, given by PAYROLL AND BENEFITS COORDINATOR. Pt complained of left foot tenderness when Dr. Rm assessing, pt would cry out. No redness, increased edema, or trauma to bottom of left foot, pain source. Will monitor. Pt's son Abdulaziz at bedside and updated on pt condition at 1115. Original Note: Day Shift- Pt sleeping most of shift, RT gave scheduled RT meds this AM, pt did not want breakfast after this, wanted to sleep. Pt closes her eyes when this keno writer / runner asking questions. Night RN stated pt did not sleep well, was up most of night, had pain to left foot. Pt placed back on Antidotlogy machine at 0855 with 3L O2 bled in. RT paged to assess pt again due to sleepiness, will monitor closely.
--- NOTE | 2019-12-26 10:21 | P.PN_ITS ---
Subjective Subjective Date Patient Seen: 12/26/19 Time Patient Seen: 10:22 Interval history: Increased somnolence this morning as compared to prior mornings. RT investigating trilogy settings. Arousable and conversive. Not complaining of right foot pain today. Has some contralateral foot pain, foot appears benign. Exam Vital Signs (past 8 hours): - 12/26/19 03:30 12/26/19 07:05 12/26/19 08:27 Temperature 97.3 F L 97.8 F Pulse Rate 97 H 98 H 95 H Respiratory Rate 20 16 Blood Pressure 98/63 117/70 Pulse Oximetry 93 92 92 12/26/19 09:00 Temperature Pulse Rate Respiratory Rate Blood Pressure Pulse Oximetry 91 Oxygen Delivery Method Nasal Cannula Oxygen Flow Rate 3 Narrative Exam Narrative: Exam Narrative: Resolving erythema around the incision. No purulence from the wound. Left foot TTP, no erythema or skin breaks. Objective Labs Result Diagrams: 12/24/19 05:50 12/24/19 05:50 Assessment & Plan Assessment & Plan narrative: Patient is a 79 year old female with a history of foot abscess. This was treated with multiple I&Ds and abx. A month ago she developed increased erythema over the medial aspect of the foot. Subsequent MRI demonstrated small abscess and likely osteomyelitis. She is now s/p I&D and bone biopsy. ID from [facility] has recommended cefazolin 2grams Q8hrs. Due to the frequency of infusion she likely needs to be DCed to a SNF. Referral to [facility] has been placed. I appreacite RT assistance with Trilogy. - stool softeners for bowel maintenance - Covid test today for anticipation to DC to SNF tomorrow - continue cefazolin 2 grams Q8hrs - Weight bearing for transfers - Dressing change once daily - 10 03/27 packing - 4 x 4s - Kerlex - light coban wrap Time Spent With Patient Time with patient: 15-24 minutes Quality VTE Deep Vein Thrombosis/Pulmonary Embolism Present on Admission: No
--- NOTE | 2019-12-26 12:18 | CM.DPC ---
DCP: continued: PASRR completed after review of scanned H&P. Abdulaziz is here again with pt at bedside and plan remains [facility] tomorrow. (please see the DCP notes from this DCplanner of yesterday for greater details of this plan). MEAGAN Samuels is updated.
[2019-12-26] MEDS: allopurinoL 100 MG TABLET PO ×2 (13:13→22:27)
[2019-12-26] MEDS: carvediloL 3.125 MG TABLET 6.25 MG PO ×2 (13:13→22:27)
[2019-12-26] MEDS: DOCUSATE 100 MG CAPSULE PO ×2 (13:14→22:27)
[2019-12-26] MEDS: FUROSEMIDE 20 MG TABLET PO (13:14)
[2019-12-26] MEDS: FERROUS SULFATE 325 MG TABLET PO (13:14)
[2019-12-26] MEDS: APIXABAN 5 MG TABLET PO ×2 (13:14→22:27)
[2019-12-26] MEDS: BISACODYL 5 MG TABLET 10 MG PO (13:14)
[2019-12-26] MEDS: predniSONE 1 MG TABLET 4 MG PO (13:14)
[2019-12-26] MEDS: ACETAMINOPHEN 325 MG TABLET 500 MG PO ×2 (13:14→22:26)
--- NOTE | 2019-12-26 15:46 | PT.IPTN ---
Current Diagnoses Cutaneous abscess of right foot (12/24/19) Surgery Performed Operation Date: 12/23/19 12:45 Actual Procedures p I&D foot abscess & bone biopsy(Right) - Anjel Rm MD Physical Therapy Treatment Note M2 PT-IP Current Condition Start: 12/24/19 12:13 Freq: NEEDED Status: Active Protocol: Document 12/24/19 10:11 AB (Rec: 12/24/19 12:39 AB [id number]) Physical Therapy Current Condition Current Condition Evaluation Date 12/24/19 Treatment Diagnosis R foot abscess/osteomyelitis s /p I&D; generalized weakness Onset Date 12/24/19 Weight Bearing Status Allowed Weight Bearing Amount (enter % per Dr. Rm's order: wegith or #) (%) bear for transfers only M3 PT-IP Subjective Start: 12/24/19 12:13 Freq: NEEDED Status: Active Protocol: Document 12/26/19 15:33 AW (Rec: 12/26/19 15:46 AW [id number]) Subjective Physical Therapy Visit Type Type Treatment Note Visit Start Time 14:28 Visit Stop Time 14:59 Total Visit Minutes 31 Physical Therapy Visit Comments Patient Comments Pt requires much encouragement to participate with PT. Therapy Pain Assessment Pain When Pain Assessed During Mobility Pain Present Pain Present Pain Reported Location Left Foot Scale Used not quantified Pain Management Techniques Distraction,Elevation,Timing of Activity with Medications Right Foot Scale Used not quantified Pain Management Techniques Distraction,Elevation,Timing of Activity with Medications M4 PT-IP Mobility and Gait Start: 12/24/19 12:13 Freq: NEEDED Status: Active Protocol: Document 12/26/19 15:33 AW (Rec: 12/26/19 15:46 AW [id number]) PT-Bed Mobility Assessment Sit to Supine Sit to Supine Maximum Assistance,1 Person Assistance,Head of Bed Elevated,Bedrails PT-Transfer Assessment Sit to and From Stand Sit to and from Stand Maximum Assistance,2 Person Assistance,Use of Upper Extremities Equipment Transfer Assistive Device Gait Belt,Front Wheeled Walker Orthotic/Prosthetic Devices or Brace: No Transfers Transfer Destination Chair Transfer Technique Stand Step Pivot Transfer Ability Level of Assist Maximum Assistance,2 Person Assistance,Use of Upper Extremities Comments Mobility Comments Pt was very tearful during this encounter and required constant cueing to keep her eyes open and to focus. With HOB raised, pt required mod assist to move her legs to EOB and max assist to transition to sitting. She then perseverated on her inability to make the transfer, stating she could not do it and was not strong enough and could not handle the pain. As she was speaking, she was able to wiggle her toes and move her knees. After much encouragement, she stood from the bed with max A x 2 (RN assisting) to stand step pivot transfer to the chair. Assist was also required to maneuver the walker. Pt exhibited excessive knee flexion in standing and was only minimally able to extend in response to cues and blocking. Pt required max assist x 2 to safely sit in the chair due to poor control of descent. Pt was positioned with her legs elevated and heels floated with pillows. Pt was left with RN and TOOLING MANAGER attending. Gait Assessment Comments Gait Comments Transfer only. Pt would not be able to attempt ambulation with NWB RLE. She is allowed RLE WB only during transfers. PT-Balance Assessment Sitting Balance and Reactions Static Sitting Balance Ability Fair Dynamic Sitting Balance Ability Fair Standing Balance and Reactions Static Standing Balance Ability Poor Dynamic Standing Balance Ability Poor Device Used FWW M5 PT-IP Objective Assessments Start: 12/24/19 12:13 Freq: NEEDED Status: Active Protocol: Document 12/24/19 10:11 AB (Rec: 12/24/19 12:39 AB [id number]) Orientation Orientation/Cognition Level of Alertness Lethargic Orientation Name Safety Awareness Decreased Safety Awareness Memory Description Short Term Impaired Gross Range of Motion Lower Extremity ROM Assessment Within Functional Limits Strength Lower Extremity Strength Assessment Right Impaired Hip 3/5 Knee 3+/5 Coordination Assessment Gross Coordination Gross Coordination WNL Muscle Tone Muscle Tone WNL Yes M6 PT-IP Treatment Start: 12/24/19 12:13 Freq: NEEDED Status: Active Protocol: Document 12/26/19 15:33 AW (Rec: 12/26/19 15:46 AW [id number]) Physical Therapy Treatment Education Education Provided Weight Bearing Status,Safety Other Treatments Other Treatment Performed Education on risks of immobility. M7 PT-IP Assessment and Plan Start: 12/24/19 12:13 Freq: NEEDED Status: Active Protocol: Document 12/26/19 15:33 AW (Rec: 12/26/19 15:46 AW [id number]) PT Summary Assessment and Plan Potential Rehabilitation Potential Good Status of Condition at Evaluation Evolving Summary Impairments Pain,Strength,Balance,Bed Mobility,Transfers,Gait, Activity Tolerance Progress Towards Goals Slow Progress due to Pain Assessment Summary Pt has depressed affect today and requires significant encouragement to attempt transfer. Mobility required max assist x 1-2. D/C plan is for SNF due to IV antibiotics. Pt would also benefit from SNF for rehab to improve functional mobility and her ability to participate in her own care. Goals Bed Mobility Goal Standby Assistance Transfer Goal Standby Assistance,Front Wheeled Walker Days to Meet Goals 5 Frequency of Treatment Frequency Of Treatment Once a Day Treatment Plan Physical Therapy Treatment Plan Bed Mobility Training,Transfer Training,Gait Training, Therapeutic Exercise,Balance Retraining,Post Op Education, Discharge Planning,Hot or Cold Pack,Neuromuscular Re-ed, Coordination Retraining Other Recommendations and Next Treatment transfers, caregiver training Focus when appropriate (if going home) Recommendations To Nursing Amount of Assist Needed 2 Person Assist,3 or More Person Assist Discharge Recommendations PT Discharge Recommendations SNF Rehab Transportation Needs at Discharge Wheelchair/Cabulance
[2019-12-26] MEDS: MONTELUKAST 10 MG TABLET PO (16:51)
--- NOTE | 2019-12-26 17:30 | PC.NURSE ---
Addendum entered by Shakira Fernandez R.N. 12/26/19 23:40: Pt slept in chair after dinner until 2100. Trans to bed 3 PA with gait belt and fww. Pt very weak and unable to stand up straight. Unsteady and almost fell, we were able to get pt to side of bed safely. Unable to void on bedpan. Notified provider, rec vto for straight cath. Float RN inserted straight cath 600 ml UOP. Trilogy set-up by RT. Pt denied pain this shift. Does not call for needs. Staff rounds frequently to assess needs. Bed alarm on and door open for safety. Original Note: Pt sleeping during bedside hand-off. Son Chico who is POA advised of pt's emotional state. Per Chico this is not the first time she has lost motivation to recover. Pt awakens for dinner. Enc to eat and engage in conversation. Pt ate 50% of dinner and had conversations with staff. Covid test sent.
[2019-12-26 17:33] LABS: COVID19 -Nasal RAPID Negative (Negative)
[2019-12-26] MEDS: TRAMADOL 50 MG TABLET PO (22:28)
[2019-12-26] MEDS: FLUoxetine 10 MG CAPSULE PO (22:28)
[2019-12-26] MEDS: LATANOPROST 0.005% OPHTH 2.5 ML 1 DROPS EYE-BOTH (22:29)
[2019-12-27] MEDS: CEFAZOLIN 2 GM/100 ML FROZ.PIGGY IV ×2 (02:45→09:20)
[2019-12-27] MEDS: OXYCODONE IR 10 MG TABLET PO ×2 (02:49→13:55)
[2019-12-27 05:39] VITALS: BP 104/65; PULSE 85; RESP 16; TEMP 37.3; O2SAT 96
[2019-12-27] MEDS: PANTOPRAZOLE 40 MG TABLET PO (06:20)
[2019-12-27 07:29] VITALS: BP 123/64; PULSE 98; RESP 19; TEMP 37.1; O2SAT 99
[2019-12-27] MEDS: BUDESONIDE FORMOTEROL 2 EACH INH (09:02)
[2019-12-27] MEDS: TIOTROPIUM BROMIDE 18 MCG INHALER INH (09:02)
[2019-12-27 09:08] VITALS: PULSE 101; RESP 18; O2SAT 93
[2019-12-27] MEDS: ACETAMINOPHEN 325 MG TABLET 500 MG PO (09:16)
[2019-12-27] MEDS: APIXABAN 5 MG TABLET PO (09:17)
[2019-12-27] MEDS: DOCUSATE 100 MG CAPSULE PO (09:17)
[2019-12-27] MEDS: SODIUM CHLORIDE 0.9% FLUSH 10 ML IV (09:18)
[2019-12-27] MEDS: FUROSEMIDE 20 MG TABLET PO (09:18)
[2019-12-27] MEDS: carvediloL 3.125 MG TABLET 6.25 MG PO (09:18)
[2019-12-27] MEDS: FERROUS SULFATE 325 MG TABLET PO (09:18)
[2019-12-27] MEDS: TRAMADOL 50 MG TABLET PO (09:19)
[2019-12-27] MEDS: predniSONE 1 MG TABLET 4 MG PO (09:20)
[2019-12-27] MEDS: allopurinoL 100 MG TABLET PO (09:20)
[2019-12-27] MEDS: SODIUM CHLORIDE 0.9% 250 ML 21 ML IV (09:21)
[2019-12-27] MEDS: BISACODYL 10 MG SUPP PR (09:39)
--- NOTE | 2019-12-27 11:04 | PC.NURSE ---
Addendum entered by Julia Ortega R.N. 12/27/19 15:18: Transfer to SNF: PICC line left intact, patient to get abx infusions at SNF. This advertising copywriter was unable to complete daily R foot dressing change, and this info was relayed to SNF. Report given to R[facility] at [facility]. All personal belongings collected and sent with patient and her son at d/c. Transferred into wheelchair, transfer packet given to transport staff. Wheeled out by facility transport, accompanied by her son. On 3L nasal cannula for transport. Original Note: Shift summary: Alert and oriented X3. Flat affect. Denies pain in RLE this morning. Dressing to R foot C/D/I. Circulation/sensation WNL to BLE's. Unable to palpate pedal pulse on R foot r/t placement of dressing, but skin to BLE's is warm & pink, cap refill <2 seconds. Denies numbness/tingling, denies pain or discomfort in R foot. Lungs CTA, on 3L O2 per usual home routine (via cannula or CPAP). HRR. 3+ edema BLE's. Patient has voided X2 on bedpan, and also had a large formed BM after receiving a suppository this morning (first BM since admit). Abd soft, nontender. Flatus+. PICC line LUE WNL. Able to make needs known and has been calling appropriately. Light and belongings within reach, bed alarm on.
[2019-12-27 11:19] VITALS: BP 99/55; PULSE 96; RESP 19; TEMP 37; O2SAT 98
--- NOTE | 2019-12-27 11:49 | PT.IPTN ---
Current Diagnoses Cutaneous abscess of right foot (12/24/19) Surgery Performed Operation Date: 12/23/19 12:45 Actual Procedures p I&D foot abscess & bone biopsy(Right) - Anjel Rm MD Physical Therapy Treatment Note M2 PT-IP Current Condition Start: 12/24/19 12:13 Freq: NEEDED Status: Active Protocol: Document 12/24/19 10:11 AB (Rec: 12/24/19 12:39 AB [id number]) Physical Therapy Current Condition Current Condition Evaluation Date 12/24/19 Treatment Diagnosis R foot abscess/osteomyelitis s /p I&D; generalized weakness Onset Date 12/24/19 Weight Bearing Status Allowed Weight Bearing Amount (enter % per Dr. Rm's order: wegith or #) (%) bear for transfers only M3 PT-IP Subjective Start: 12/24/19 12:13 Freq: NEEDED Status: Active Protocol: Document 12/27/19 11:52 CLB (Rec: 12/27/19 12:01 CLB [email or web address]) Subjective Physical Therapy Visit Type Type Treatment Note Visit Start Time 11:32 Visit Stop Time 11:49 Number of PCI SECURITY CONSULTANT Visits 17 Physical Therapy Visit Comments Patient Comments after several attempts pt willing to transfer to chair. Therapy Pain Assessment Pain When Pain Assessed During Mobility Pain Present Pain Present Pain Reported Location Left Foot Scale Used not quantified Pain Management Techniques Distraction,Elevation,Timing of Activity with Medications Right Foot Scale Used not quantified Pain Management Techniques Distraction,Elevation,Timing of Activity with Medications M4 PT-IP Mobility and Gait Start: 12/24/19 12:13 Freq: NEEDED Status: Active Protocol: Document 12/27/19 11:52 CLB (Rec: 12/27/19 12:01 CLB [email or web address]) PT-Bed Mobility Assessment Sit to Supine Sit to Supine Standby Assistance,1 Person Assistance,Head of Bed Elevated,Bedrails Scooting Scooting to Edge of Bed Standby Assistance PT-Transfer Assessment Sit to and From Stand Sit to and from Stand Minimal Assistance,1 Person Assistance,Use of Upper Extremities Equipment Transfer Assistive Device Gait Belt,Front Wheeled Walker Orthotic/Prosthetic Devices or Brace: No Transfers Transfer Destination Chair Transfer Technique Stand Step Pivot Transfer Ability Level of Assist Minimal Assistance,1 Person Assistance,Use of Upper Extremities Comments Mobility Comments Pt in bed and able to perform sit-supine and scooting to EOB SBA, pt requiring Min A for sit-stand from bed. Pt c/o pain in left foot during standing and transfer. Pt required cues to keep walker close for chair approach. Pt also leaned heavily on FWW and bent over to put forearms on walker. Pt sat in chair CGA. Left pt in chair with all needs within reach and alarm on. Pt SpO2 on O2 98%, HR 90 bpm after transfer. Gait Assessment Comments Gait Comments Transfer only. Pt would not be able to attempt ambulation with NWB RLE. She is allowed RLE WB only during transfers. M5 PT-IP Objective Assessments Start: 12/24/19 12:13 Freq: NEEDED Status: Active Protocol: Document 12/24/19 10:11 AB (Rec: 12/24/19 12:39 AB [id number]) Orientation Orientation/Cognition Level of Alertness Lethargic Orientation Name Safety Awareness Decreased Safety Awareness Memory Description Short Term Impaired Gross Range of Motion Lower Extremity ROM Assessment Within Functional Limits Strength Lower Extremity Strength Assessment Right Impaired Hip 3/5 Knee 3+/5 Coordination Assessment Gross Coordination Gross Coordination WNL Muscle Tone Muscle Tone WNL Yes M6 PT-IP Treatment Start: 12/24/19 12:13 Freq: NEEDED Status: Active Protocol: Document 12/26/19 15:33 AW (Rec: 12/26/19 15:46 AW [id number]) Physical Therapy Treatment Education Education Provided Weight Bearing Status,Safety Other Treatments Other Treatment Performed Education on risks of immobility. M7 PT-IP Assessment and Plan Start: 12/24/19 12:13 Freq: NEEDED Status: Active Protocol: Document 12/27/19 11:52 CLB (Rec: 12/27/19 12:01 CLB [email or web address]) PT Summary Assessment and Plan Potential Rehabilitation Potential Good Status of Condition at Evaluation Evolving Summary Impairments Pain,Strength,Balance,Bed Mobility,Transfers,Gait, Activity Tolerance Progress Towards Goals Slow Progress due to Pain,Slow Progress due to Activity Tolerance Assessment Summary Pt is SBA for bed mobility, Min A for sit-stand and Min A for transfer to chair. Pt c/o increased pain of left foot during transfer and required walker management as pt relies heavily on walker for transfer. Goals Bed Mobility Goal Standby Assistance Transfer Goal Standby Assistance,Front Wheeled Walker Days to Meet Goals 5 Frequency of Treatment Frequency Of Treatment Once a Day Treatment Plan Physical Therapy Treatment Plan Bed Mobility Training,Transfer Training,Gait Training, Therapeutic Exercise,Balance Retraining,Post Op Education, Discharge Planning,Hot or Cold Pack,Neuromuscular Re-ed, Coordination Retraining Other Recommendations and Next Treatment transfers, caregiver training Focus when appropriate (if going home) Recommendations To Nursing Amount of Assist Needed 2 Person Assist Discharge Recommendations PT Discharge Recommendations SNF Rehab Transportation Needs at Discharge Wheelchair/Cabulance
--- NOTE | 2019-12-27 12:39 | P.DS_ITS ---
History of Present Illness History of Present Illness Date Patient Seen: 12/27/19 Time Patient Seen: 12:39 Chief complaint: OPB Narrative: Pain is mild. Denies fever or chills. No SOB or chest pain. Otherwise without complaints. Discharge Providers Provider Date of admission: 12/24/19 08:18 Discharge Date: 12/27/19 Primary care physician: Josue Menchaca DO Consults: 12/23/19 14:59 Consult to Discharge Planning Routine Comment: Consult to Physical Therapy Evaluate & Treat Comment: Physician Instructions: Evaluate and Treat Consult to Respiratory Therapy Evaluate & Treat Comment: Physician Instructions: Evaluate and treat 12/23/19 16:02 Consult to Pastoral Services Routine Comment: will accept in house scrap dealer visit 12/24/19 15:09 Consult to Occupational Therapy Evaluate & Treat Comment: Physician Instructions: Evaluate and treat Discharge provider: Catalino Jimenez PA-C Summary Hospital Course Discharge Diagnosis: Pre-op diagnosis: right foot medial abscess and osteomyelitis Hospital Course: [address] [address] Operative Note Patient: Leyda Nielsen MMR#: [id number] : 1940Acct:[id number] Age/Sex: 79 / F Date of Service: 12/23/19 Provider: Anjel Rm MD Operative Date/Time/Diagnoses Date of procedure: 12/23/19 Time of procedure: 14:41 Pre-op diagnosis: right foot medial abscess and osteomyelitis Post-op diagnosis: same Procedure & Clinicians Procedure: Irrigation and debridement of right medial foot abscess, bone biopsy of medial cuneiform Same procedure as scheduled: Yes Indications: Patient is a 79-year-old female with a history of right foot abscess which was taken to the OR several times back in July she was subsequently doing very well and only thigh completed finished her healing of her foot wounds when she developed some erythema around the medial foot wound and increasing pain. Oral antibiotics failed to resolve the erythema subsequent MRI demonstrated small abscess along the navicular and medial cuneiform as well as concerns for osteomyelitis. She has taken the OR for irrigation debridement of abscess as well as for bone biopsy for culture. Surgeon: Anjel Rm Anesthesia Type: General Operative Notes Findings: Small right foot abscess along the medial cuneiform and navicular Closure Type: non-primary Estimated Blood Loss (mL): 25 79 year old female with a history of foot abscess. This was treated with multiple I&Ds and abx. A month ago she developed increased erythema over the medial aspect of the foot. Subsequent MRI demonstrated small abscess and likely osteomyelitis. She is now s/p I&D and bone biopsy. ID from [facility] has recommended cefazolin 2grams Q8hrs. Due to the frequency of infusion she needs DC to a SNF. Referral to [facility] has been placed. Patient will be discharged to SNF today in stable condition. Exam Vital Signs (past 8 hours): - 12/27/19 05:39 12/27/19 07:29 12/27/19 09:08 Temperature 99.1 F 98.7 F Pulse Rate 85 98 H 101 H Respiratory Rate 16 19 18 Blood Pressure 104/65 123/64 Pulse Oximetry 96 99 93 12/27/19 11:19 Temperature 98.6 F Pulse Rate 96 H Respiratory Rate 19 Blood Pressure 99/55 L Pulse Oximetry 98 Oxygen Delivery Method Nasal Cannula Oxygen Flow Rate 3.0 Narrative Exam Narrative: 79 year old female in NAD. Patient resting in bed side chair. Right foot dressing is CDA. Able to wiggle all toes Right LE. Sensation grossly intact right LE. Objective Labs Result Diagrams: 12/24/19 05:50 12/24/19 05:50 Labs: Laboratory Results - last 24 hr 12/26/19 17:00 COVID-19 PCR Negative Discharge Assessment & Plan Assessment and Plan Assessment: She is now s/p I&D and bone biopsy. ID from [facility] has recommended cefazolin 2grams Q8hrs. Due to the frequency of infusion she needs SNF. Referral to [facility] has been placed. Plan of Treatment: - continue cefazolin 2 grams Q8hrs - Weight bearing for trasnfers - Dressing change once daily - 10 03/27 packing - 4 x 4s - Kerlex - light coban wrap Discharge Plan Discharge Plan Patient Disposition: SNF Transfer to: [facility] Consult as needed: Dental, Mental health, Podiatry and Vision Discharge orders & Medications Prescriptions: New tramadol 50 mg Tablet 50 mg PO BID Qty: 30 RF: 0 bisacodyl 5 mg Tablet,Delayed Release (Dr/Ec) 10 mg PO BID PRN (Reason: Constipation) Qty: 20 RF: 0 cefazolin in dextrose (iso-os) 2 gram/100 mL Piggyback 2 gram IV Q8H 28 Days Qty: 8400 RF: 0 oxycodone 10 mg Tablet 10 mg PO Q6-8H PRN (Reason: Pain, Severe) Qty: 30 RF: 0 Continued latanoprost 0.005 % drops 1 drp ophthalmic (eye) BEDTIME RF: 0 montelukast 10 mg tablet 10 mg PO QPM RF: 0 fluoxetine 20 mg capsule 10 mg PO DAILY RF: 0 Spiriva Respimat 2.5 mcg/actuation mist 1 inh INHALATION DAILY RF: 0 Eliquis 5 mg tablet 5 mg PO BID RF: 0 acetaminophen 325 mg Tablet 500 mg PO BID RF: 0 melatonin 3 mg Tablet 3 mg PO BEDTIME PRN (Reason: Insomnia) RF: 0 ferrous sulfate 325 mg (65 mg iron) Tablet 325 mg PO DAILY RF: 0 fluticasone propion-salmeterol [Advair Diskus] 250-50 mcg/dose Blister With Device 1 inh INHALATION BID RF: 0 carvedilol 6.25 mg Tablet 6.25 mg PO BID RF: 0 allopurinol 100 mg Tablet 100 mg PO BID RF: 0 pantoprazole 40 mg Tablet,Delayed Release (Dr/Ec) 40 mg PO DAILY RF: 0 furosemide 20 mg Tablet 20 mg PO DAILY RF: 0 prednisone 1 mg Tablet 4 mg PO DAILY RF: 0 budesonide-formoterol [Symbicort] 80-4.5 mcg/actuation Hfa Aerosol Inhaler 2 puff INHALATION BID RF: 0 Discontinued ciprofloxacin HCl 250 mg tablet 750 mg PO BID RF: 0 cephalexin 500 mg capsule 500 mg PO Q6H RF: 0 tramadol 50 mg tablet 50 mg PO BID RF: 0 Follow up/Referrals: Anjel Rm MD [Physician] - (2 weeks) Josue Menchaca DO [Primary Care Provider] - Discharge Health Status Multidrug resistant organism: No MDRO Diet/Activity/Treatments Diet: Carb-consistent/Diabetic Liquid consistency: Normal/Thin Food texture: Regular Activity: Weight bearing right LE for transfers only. Skin/Wound/Dressing Care Dressing: Dressing change once daily - 10 of 03/27 packing - 4 x 4s - Kerlex - light coban wrap Special Rehabilitation [facility] Reason for rehabilitation: Post-operative therapy and Other Rehab type: Physical therapy and Occupational therapy Restrictions to mobility: Weight bearing for transfers only right LE Visit Report/Discharge Packet Instructions: DI for Debridement of a Wound, Infection, or Burn, DI for Polysomnography, How to Prevent Falls, DI for Postoperative Pain, DI for Prescription Opioid Use, DI for Incision and Drainage, [facility]: Wound Care Stand Alone Forms: Surgery Discharge Visit Report Forms: Stroke Signs & Symptoms Discharge Data Primary Care Provider: Josue Menchaca VTE Deep Vein Thrombosis/Pulmonary Embolism Present on Admission: No
--- NOTE | 2019-12-27 13:12 | CM.DPC ---
DCP Cont: Spoke to patient's son, Chico, who is DPOA. He is from [place], but is currently in [place]. He will be here to see patient before she goes to [facility]. He was inquiring when he called about time of discharge. Let him know that this bilingual patient support caseworker had not yet seen Dr. Rm, since he has been in surgery. Let son know that as soon as orders are in and clarification of pickling operator time is noted, will update him. Patient is alert and oriented today, yesterday, she was not wanting to work with Halley Jimenez, PAC is here, and is working on discharge orders. Updated August at [facility], and let her know that as soon as orders are completed, will fax them over. PASSR is already completed by HARISH Patel Sap Gatherer. Reviewed. Mercedes at [facility] clarified time of pickling operator for 1500. Updated white board at main nurses station, and nurse Dumont is aware. Called son, Chico, back. He is aware of pickling operator time, and plans to be here to see patient before she leaves. Faxed over PASSR, negative COVID results, HARISH summary, and signed med list with prescriptions over to [facility]. Original med sheets and PASSR placed in manilla folder, copy for scanning. P: Patient will be discharged to [facility] today, and pickling operator time is 1500. Glo Graves RN/Field Specialist
--- NOTE | 2019-12-27 16:08 | OT.IP.TRT ---
Current Diagnoses Cutaneous abscess of right foot (12/24/19) Surgery Performed Operation Date: 12/23/19 12:45 Actual Procedures p I&D foot abscess & bone biopsy(Right) - Anjel Rm MD Occupational Therapy Treatment Note M3 OT- IP Subjective and Pain Start: 12/25/19 10:12 Freq: Status: Active Protocol: Document 12/27/19 14:30 RM (Rec: 12/27/19 15:56 RM [id number]) OT- Subjective Occupational Therapy Visit Type Type Treatment Note Visit Start Time 02:30 Visit Stop Time 02:50 Total Visit Minutes 20 Occupational Therapy Visit Comments Patient Comments Pt reports that she is feeling ready for discharge to SNF. Patient/Caregiver Goals Return home OT Pain Assessment Pain When Pain Assessed At Rest Pain Present Pain Present Pain Reported Location Left Foot Intensity 6 Scale Used Numeric (0 - 10) M6 OT- IP Functional Cognition Start: 12/25/19 10:12 Freq: Status: Active Protocol: Document 12/27/19 14:30 RM (Rec: 12/27/19 15:56 RM [id number]) Cognitive Factors Limiting Selfcare Function Cognitive Ability Level of Alertness Drowsy Attention Span Ability Capable of Focused Attention, Capable of Sustained Attention Ability to Follow Commands Able to Follow Multi-Step Commands Cognitive Tests SLUMS 25/30 Patient reports that she feels at her baseline and feels that aside from her R foot wound she is able to return home. Cognitive Comments Cognitive Assessment Comments Patient reports pain despite medication with some drowsiness. Anticipate some improvement in performance once pain improves and not requiring pain medications. OT- Vision and Hearing OT- Hearing Assessment OT- Hearing Assessment WFL OT- Vision Assessment Visual Acuity WF M9 OT- IP Assessment and Plan Start: 12/25/19 10:12 Freq: Status: Active Protocol: Document 12/27/19 14:30 RM (Rec: 12/27/19 15:56 RM [id number]) OT Summary Assessment and Plan Potential Rehabilitation Potential Good Analytic Complexity at Evaluation Low Summary OT Impairments Pain,Activity Tolerance Progress Towards Goals Safe For Discharge Assessment Summary Patient declined participation with ADLs this session. Able to participate with SLUMS with score of 25/30 and planning to discharge to SNF. Safe for discharge to SNF. Frequency of Treatment Frequency Of Treatment Discharge Discharge Recommendations OT Discharge Recommendations SNF Rehab
== END 2019-12-27 15:28 | DRG 478 ==
LOC: OR 08:51 → AC 08:51
PROVIDERS: Physician Assistant Surgical; Admitting Provider Orthopaedic Surgery Adult Reconstructive Orthopaedic Surgery; PCP Family Medicine; Referring Provider Family Medicine; Visit Provider Orthopaedic Surgery Adult Reconstructive Orthopaedic Surgery
PROC: 0QBL0ZX Excision of Right Tarsal, Open Approach, Diagnostic (ICD-10-PCS; principal; 2019-12-23 12:45)
DX: M86.8X7 Other osteomyelitis, ankle and foot (principal); L02.611 Cutaneous abscess of right foot; M87.9 Osteonecrosis, unspecified; J96.12 Chronic respiratory failure with hypercapnia; I50.32 Chronic diastolic (congestive) heart failure; I27.20 Pulmonary hypertension, unspecified; J44.9 Chronic obstructive pulmonary disease, unspecified; E66.01 Morbid (severe) obesity due to excess calories; I48.91 Unspecified atrial fibrillation; L40.0 Psoriasis vulgaris; G47.33 Obstructive sleep apnea (adult) (pediatric); Z99.81 Dependence on supplemental oxygen; Z68.39 Body mass index [BMI] 39.0-39.9, adult; Z11.59 Encounter for screening for other viral diseases
CPT/HCPCS: 36415; 36573; 80053; 85027; 87070; 87075; 87176; 87205; 87635; 94640; 94760; 94762; 97129; 97162; 97166; 97530; 97535; J0690; J2704; J3010

== ENCOUNTER → 2020-01-19 14:39 | Outpatient (ROUT) | payer SELFPAY ==
[2019-08-13 01:47] VITALS: PULSE 93; RESP 34; O2SAT 95
[2019-12-24 05:35] VITALS: BMI 39.8
[2020-01-19 15:56] LABS: Clostridium Difficile Tox PCR Positive for C. diff
[2020-01-19 21:29] LABS: Add Manual Diff / Slide Review NO; Basophils Absolute Auto 0 /uL (0-100); Basophils Percent Auto 0.6 % (0-2); Eosinophils Absolute Auto 300 /uL (0-450); Eosinophils Percent Auto 3.2 % (2-4); Hematocrit 27.7 % (36-46); Hemoglobin 8.6 g/dL (12.0-16.0); Lymphocytes Absolute Auto 900 /uL (1100-4500); Lymphocytes Percent Auto 11.1 % (25-40); Mean Corpuscular HGB Conc 31.1 % (30-36); Mean Corpuscular Hemoglobin 30.7 PG (26-34); Mean Corpuscular Volume 98.6 fL (80-100); Monocytes Absolute Auto 900 /uL (0-900); Monocytes Percent Auto 10.5 % (3-14); Neutrophils Absolute Auto 6100 /uL (1500-7000); Neutrophils Percent Auto 74.6 % (50-75); Platelet Count 249 X10^3/uL (150-400); Red Blood Cell Count 2.81 X10^6/uL (4.0-5.2); Red Cell Distribution Width 16.8 % (11.6-14.8); White Blood Cell Count 8.2 X10^3/uL (4.5-11.0)
[2020-01-19 21:35] LABS: Albumin 3.1 g/dL (3.5-5.0); Albumin Globulin Ratio 1.2 (1.0-2.8); Alkaline Phosphatase 82 U/L (38-126); Aspartate Aminotransferase 19 IU/L (14-36); BUN Creatinine Ratio 25.8 (6-22); Bilirubin Total 0.4 mg/dL (0.2-1.3); Blood Urea Nitrogen 17 mg/dL (7-17); C-Reactive Protein Quant 5.2 mg/dL (<1.0); Calcium 9.1 mg/dL (8.4-10.2); Carbon Dioxide 39 mmol/L (22-32); Chloride 98 mmol/L (98-107); Estimated Glomerular Filt Rate > 60.0 mL/min (>60); Globulin 2.5 g/dL (1.7-4.1); Glucose 118 mg/dL (80-110); HEMOLYSIS 19 (0-50); Sodium 136 mmol/L (137-145); Total Protein 5.6 g/dL (6.3-8.2)
[2020-01-19 21:37] LABS: Alanine Aminotransferase < 4 IU/L (<35)
[2020-01-19 21:52] LABS: Erythrocyte Sedimentation Rate 32 MM/HR (0-20)
[2020-01-20 13:32] LABS: C difficie Toxins A and B, EIA Positive (Negative)
== END ==
PROVIDERS: Internal Medicine; PCP Family Medicine; Visit Provider Nurse Practitioner
DX: A04.72 Enterocolitis due to Clostridium difficile, not specified as recurrent (principal)
CPT/HCPCS: 80053; 85025; 85651; 86140; 87493

== ENCOUNTER 2020-02-06 07:29 | Emergency (ER) | payer MEDICARE, OTHER, SELFPAY ==
[2019-08-13 01:47] VITALS: PULSE 93; RESP 34; O2SAT 95
[2019-12-24 05:35] VITALS: BMI 39.8
[2020-02-06] VITALS (7 sets, daily range): BP systolic 119–121; BP diastolic 57–59; PULSE 78–90; RESP 18; TEMP 36.6; O2SAT 76–98
--- NOTE | 2020-02-06 07:35 | DI.CT.S_ITS ---
PROCEDURE: CT HEAD/BRAIN WO CON INDICATIONS: fall on eliquis TECHNIQUE: Noncontrast 4.5 mm thick angled axial sections acquired from the foramen magnum to the vertex, with coronal and sagittal reformats. For radiation dose reduction, the following was used: automated exposure control, adjustment of mA and/or kV according to patient size. COMPARISON: [facility], CT, CT HEAD/BRAIN WO CON, 08/01/2019, 22:05. FINDINGS: Image quality: Excellent. CSF spaces: Basal cisterns are patent. No extra-axial fluid collections. The ventricles are symmetric in size and shape. Brain: No intracranial bleeds or masses. There is cerebral volume loss for age, with resultant ventricular and sulcal prominence. There are periventricular and deep white matter chronic small vessel ischemic changes. There is intracranial internal carotid artery atherosclerosis. Skull and face: Calvarium and visualized facial bones appear intact, without suspicious lesions. Sinuses: Visualized sinuses and mastoids are clear. IMPRESSION: No acute intracranial abnormality. Dictated by: Timmy Romero M.D. on 02/06/2020 at 7:51 Approved by: Timmy Romero M.D. on 02/06/2020 at 7:52
--- NOTE | 2020-02-06 07:35 | DI.CT.S_ITS ---
PROCEDURE: CT LUMBAR SPINE W CON INDICATIONS: fall large contusion TECHNIQUE: After the administration of intravenous Isovue contrast, 3 mm thick sections acquired through the levels of interest. Sagittal and coronal reformats were then constructed. For radiation dose reduction, the following was used: automated exposure control. COMPARISON: [facility], MR, ABDOMEN W/O CONTRAST, 07/19/2013, 12:51. CT, CHEST ANGIO-PE, 07/17/2013, 11:30. FINDINGS: Image quality: Excellent. Bones: Bony cement at T12 and L1 has been placed. Soft tissues: High-density focus within the posterior subcutaneous fat overlying the thoracolumbar junction, measuring 80 mm craniocaudal by 40 mm anteroposterior by 80 mm transverse. Multilevel disc space narrowing and endplate osteophyte formation throughout the lumbar and lower thoracic spine. Facet hypertrophy throughout the mid and lower lumbar spine. Small right pleural effusion. Mild right basilar atelectasis versus pneumonia. Cardiomegaly. 30 mm diameter left adrenal nodule, increased in size. Visualized bowel loops and solid organs are otherwise grossly unremarkable. IMPRESSION: 1. No acute fracture. 2. Subcutaneous hematoma. 3. Cardiomegaly. 4. Small right pleural effusion. 5. Increased left adrenal adenoma. Dictated by: Timmy Romero M.D. on 02/06/2020 at 7:53 Approved by: Timmy Romero M.D. on 02/06/2020 at 7:59
--- NOTE | 2020-02-06 07:48 | ED_ITS ---
HPI - Back Pain/Injury General Chief Complaint: Fall Stated Complaint: GLF Time Seen by Provider: 02/06/20 07:35 Source: patient and EMS Mode of arrival: EMS Limitations: no limitations History of Present Illness HPI Narrative: Patient is an 80-year-old overweight female with history of atrial fibrillation on Eliquis who resides at [facility]. She was getting dressed yesterday with assistance when she fell over. She did not hit her head but she did land on her back. Afterwards she said that she had quite a severe headache which resolved with Tylenol. She has not had any nausea or vomiting since then. However she has developed quite a significant contusion in her lumbar spine. She denies any changes in bowel or bladder habits, numbness or tingling. MD Complaint: back pain Onset (ago): day(s) Location: lumbar spine Related Data Home Medications Medication Instructions Recorded Confirmed Eliquis 5 mg PO BID 05/24/19 12/23/19 Spiriva Respimat 1 inh INHALATION DAILY 05/24/19 12/23/19 acetaminophen 500 mg PO BID 05/24/19 12/23/19 ferrous sulfate 325 mg PO DAILY 05/24/19 12/23/19 fluoxetine 10 mg PO DAILY 05/24/19 12/23/19 latanoprost 1 drp OPHTHALMIC (EYE) BEDTIME 05/24/19 12/23/19 melatonin 3 mg PO BEDTIME PRN 05/24/19 12/23/19 montelukast 10 mg PO QPM 05/24/19 12/23/19 allopurinol 100 mg PO BID 12/20/19 12/23/19 carvedilol 6.25 mg PO BID 12/20/19 12/23/19 fluticasone propion-salmeterol 1 inh INHALATION BID 12/20/19 12/20/19 [Advair Diskus] furosemide 20 mg PO DAILY 12/20/19 12/23/19 pantoprazole 40 mg PO DAILY 12/20/19 12/23/19 budesonide-formoterol [Symbicort] 2 puff INHALATION BID 12/23/19 12/23/19 prednisone 4 mg PO DAILY 12/23/19 12/23/19 Previous Rx's Medication Instructions Recorded bisacodyl 10 mg PO BID PRN #20 tab 12/27/19 oxycodone 10 mg PO Q6-8H PRN #30 tab 12/27/19 tramadol 50 mg PO BID #30 tab 12/27/19 Allergies Allergy/AdvReac Type Severity Reaction Status Date / Time Sulfa (Sulfonamide Allergy Intermediate Verified 12/23/19 12:04 Antibiotics) Review of Systems Review of Systems ROS Unobtainable: All systems reviewed & are unremarkable except as noted in HPI and below Constitutional Constitutional: Denies chills, Denies fever(s), Denies lethargy and Denies weakness Eyes Eyes: Denies change in vision, Denies eye discharge, Denies irritation and Denies loss of vision Cardiovascular Cardiovascular: Denies chest pain, Denies irregular heart rhythm, Denies lightheadedness, Denies palpitations, Denies dyspnea, Denies dyspnea on exertion and Denies orthopnea Respiratory Respiratory: Denies cough, Denies dyspnea, Denies dyspnea on exertion and Denies wheezing Gastrointestinal Gastrointestinal: Denies abdominal pain, Denies change in bowel habits, Denies diarrhea, Denies nausea and Denies vomiting Genitourinary Genitourinary: Denies urinary incontinence Genitourinary: Denies urinary incontinence Integumentary/Breasts Comments: Chronic foot wound Neurologic Neurologic: Denies loss of vision and Denies weakness Endocrine Endocrine: Denies palpitations Allergic/Immunologic Allergic/Immunologic: Denies wheezing Patient History Medical History Anemia (Acute) Atrial fibrillation (Acute) Cardiomegaly (Acute) Congestive heart failure (Acute) COPD (chronic obstructive pulmonary disease) (Acute) Depression (Acute) Diabetes (Acute) Hospitalization or health care facility admission within last 6 months (Acute) Hypercapnic respiratory failure (Acute 07/2019) JEANIE on CPAP (Acute) Osteoarthritis (Acute) PAF (paroxysmal atrial fibrillation) (Acute) Pulmonary hypertension (Acute) Ulcerative colitis (Acute) Surgical History History of incision and drainage (Acute 2019) Family History Mother Pneumonia Father Medical history unknown Sister Macular degeneration Social History household members: none Smoking Status: Former smoker alcohol intake: former Smoking Status: Former smoker alcohol intake frequency: 0-2 drinks per day Substance Use Type: does not use Exam Initial Vital Signs Initial Vital Signs: Vital Signs Temperature 97.8 F 02/06/20 07:30 Pulse Rate 78 02/06/20 07:30 Respiratory Rate 18 02/06/20 07:30 Blood Pressure 119/57 L 02/06/20 07:30 Pulse Oximetry 98 02/06/20 07:30 GENERAL: Overweight well-appearing female HEENT: Head atraumatic,EOMI, pupils reactive, face symmetric, CARDIOVASCULAR: Regular rate and rhythm without murmurs, rubs or gallops. RESPIRATORY: Breath sounds equal bilaterally, no wheezes rales or rhonchi. ABDOMEN: Soft, nontender. Normoactive bowel sounds all 4 quadrants. No guarding or rebound. BACK: 6 cm x 10 cm contusion over lumbar spine L4-L5 area. Sensation in lower extremities intact able to move toes. EXTREMITIES: Normal range of motion, no clubbing or edema. Neurovascularly intact NEUROLOGICAL: Alert and oriented x4.Normal gait and speech. SKIN: Warm, dry, no laceration, no petechiae, no rashes or lesions. Course Orders Ordered: ED Orders 02/06/20 07:35 CT head/brain wo con Stat CT lumbar spine w con Stat 02/06/20 07:50 Basic Metabolic Panel Stat Complete Blood Count AUTO DIFF Stat Discontinued Medications Morphine Sulfate (Morphine) 2 mg IV NOW ONE Stop: 02/06/20 07:36 Last Admin: 02/06/20 07:59 Dose: 2 mg Documented by: ANA Vital Signs Vital signs: Vital Signs - 8 hr 02/06/20 07:30 02/06/20 07:34 02/06/20 07:35 Temperature 97.8 F Pulse Rate 78 78 79 Respiratory Rate 18 Blood Pressure 119/57 L 119/57 L Pulse Oximetry 98 93 93 02/06/20 08:00 02/06/20 08:37 02/06/20 09:00 Temperature Pulse Rate 78 83 89 Respiratory Rate Blood Pressure 121/59 L Pulse Oximetry 94 76 L 85 L 02/06/20 09:30 Temperature Pulse Rate 90 Respiratory Rate Blood Pressure Pulse Oximetry 97 MDM - Back Pain/Injury Lab Data Attestation: I reviewed the patient's lab results. Result diagrams: 02/06/20 07:50 02/06/20 07:50 Labs: Lab Results 02/06/20 02/06/20 Range/Units 07:50 07:50 WBC 4.9 (4.5-11.0) X10^3/uL RBC 2.71 L (4.0-5.2) X10^6/uL Hgb 8.4 L (12.0-16.0) g/dL Hct 27.3 L (36-46) % MCV 100.7 H (80-100) fL MCH 31.1 (26-34) PG MCHC 30.9 (30-36) % RDW 17.0 H (11.6-14.8) % Plt Count 196 (150-400) X10^3/uL Neut % (Auto) 75.9 H (50-75) % Lymph % (Auto) 13.0 L (25-40) % [place] % (Auto) 10.5 (3-14) % Eos % (Auto) 0.3 L (2-4) % Baso % (Auto) 0.3 (0-2) % Neut # (Auto) 3700 (3940-3531) /uL Lymph # (Auto) 600 L (0721-2767) /uL [place] # (Auto) 500 (0-900) /uL Eos # (Auto) 0 (0-450) /uL Baso # (Auto) 0 (0-100) /uL Sodium 135 L (137-145) mmol/L Potassium 4.2 (3.4-5.1) mmol/L Chloride 95 L (98-107) mmol/L Carbon Dioxide 39 H (22-32) mmol/L BUN 13 (7-17) mg/dL Creatinine 0.63 (0.52-1.04) mg/dL Estimated GFR > 60.0 (>60) mL/min BUN/Creatinine Ratio 20.6 (6-22) Glucose 97 (80-110) mg/dL Calcium 9.4 (8.4-10.2) mg/dL Imaging Data CT scan - head: Radiologist's Impression: PROCEDURE: CT HEAD/BRAIN WO CON INDICATIONS: fall on eliquis TECHNIQUE: Noncontrast 4.5 mm thick angled axial sections acquired from the foramen magnum to the vertex, with coronal and sagittal reformats. For radiation dose reduction, the following was used: automated exposure control, adjustment of mA and/or kV according to patient size. COMPARISON: [facility], CT, CT HEAD/BRAIN WO CON, 08/01/2019, 22:05. FINDINGS: Image quality: Excellent. CSF spaces: Basal cisterns are patent. No extra-axial fluid collections. The ventricles are symmetric in size and shape. Brain: No intracranial bleeds or masses. There is cerebral volume loss for age, with resultant ventricular and sulcal prominence. There are periventricular and deep white matter chronic small vessel ischemic changes. There is intracranial internal carotid artery atherosclerosis. Skull and face: Calvarium and visualized facial bones appear intact, without suspicious lesions. Sinuses: Visualized sinuses and mastoids are clear. IMPRESSION: No acute intracranial abnormality. Dictated by: Timmy Romero M.D. on 02/06/2020 at 7:51 Approved by: Timmy Romero M.D. on 02/06/2020 at 7:52 CT lumbar: Radiologist's Impression: PROCEDURE: CT LUMBAR SPINE W CON INDICATIONS: fall large contusion TECHNIQUE: After the administration of intravenous Isovue contrast, 3 mm thick sections acquired through the levels of interest. Sagittal and coronal reformats were then constructed. For radiation dose reduction, the following was used: automated exposure control. COMPARISON: [facility], MR, ABDOMEN W/O CONTRAST, 07/19/2013, 12:51. CT, CHEST ANGIO-PE, 07/17/2013, 11:30. FINDINGS: Image quality: Excellent. Bones: Bony cement at T12 and L1 has been placed. Soft tissues: High-density focus within the posterior subcutaneous fat overlying the thoracolumbar junction, measuring 80 mm craniocaudal by 40 mm anteroposterior by 80 mm transverse. Multilevel disc space narrowing and endplate osteophyte formation throughout the lumbar and lower thoracic spine. Facet hypertrophy throughout the mid and lower lumbar spine. Small right pleural effusion. Mild right basilar atelectasis versus pneumonia. Cardiomegaly. 30 mm diameter left adrenal nodule, increased in size. Visualized bowel loops and solid organs are otherwise grossly unremarkable. IMPRESSION: 1. No acute fracture. 2. Subcutaneous hematoma. 3. Cardiomegaly. 4. Small right pleural effusion. 5. Increased left adrenal adenoma. Dictated by: Timmy Romero M.D. on 02/06/2020 at 7:53 Approved by: Timmy Romero M.D. on 02/06/2020 at 7:59 MDM Narrative Medical decision making narrative: Patient has large subcutaneous hematoma is on her lumbar spine. No evidence of deeper bleeding a. She is on Eliquis. Pain is controlled with morphine. Head CT is negative. Patient is on home oxygen she frequently takes her oxygen off in the ED and her O2 levels do drop into the 70s however when is reapplied a quickly goes up. Discharge Plan Departure Patient Disposition: Home Clinical Impression: Contusion Qualifiers: Encounter type: initial encounter Contusion area: lower back Qualified Code(s): S30.0XXA - Contusion of lower back and pelvis, initial encounter Discharge Date/Time: 02/06/20 10:11 Instructions: Contusion Activity Restrictions/Additional Instructions: *You have been diagnosed with contusion *What to do: You do have a large bruise on your back. However there is no evidence that the bruise goes any deeper than the skin. This will take few days or weeks to totally resolve. Continue to ice 20-30 minutes at a time. *Continue to take medications as directed Tylenol 650 mg every 4-6 hours if needed for owts-if-nlxtimct pain *Follow up with your primary care provider in 2-3 days *Return to ER if you should have increasing pain, weakness in lower extremities or any new, worsening or concerning symptoms Prescriptions: No Action latanoprost 0.005 % drops 1 drp ophthalmic (eye) BEDTIME RF: 0 montelukast 10 mg tablet 10 mg PO QPM RF: 0 fluoxetine 20 mg capsule 10 mg PO DAILY RF: 0 Spiriva Respimat 2.5 mcg/actuation mist 1 inh INHALATION DAILY RF: 0 Eliquis 5 mg tablet 5 mg PO BID RF: 0 acetaminophen 325 mg Tablet 500 mg PO BID RF: 0 melatonin 3 mg Tablet 3 mg PO BEDTIME PRN (Reason: Insomnia) RF: 0 ferrous sulfate 325 mg (65 mg iron) Tablet 325 mg PO DAILY RF: 0 fluticasone propion-salmeterol [Advair Diskus] 250-50 mcg/dose Blister With Device 1 inh INHALATION BID RF: 0 carvedilol 6.25 mg Tablet 6.25 mg PO BID RF: 0 allopurinol 100 mg Tablet 100 mg PO BID RF: 0 pantoprazole 40 mg Tablet,Delayed Release (Dr/Ec) 40 mg PO DAILY RF: 0 furosemide 20 mg Tablet 20 mg PO DAILY RF: 0 prednisone 1 mg Tablet 4 mg PO DAILY RF: 0 budesonide-formoterol [Symbicort] 80-4.5 mcg/actuation Hfa Aerosol Inhaler 2 puff INHALATION BID RF: 0 tramadol 50 mg Tablet 50 mg PO BID Qty: 30 RF: 0 bisacodyl 5 mg Tablet,Delayed Release (Dr/Ec) 10 mg PO BID PRN (Reason: Constipation) Qty: 20 RF: 0 oxycodone 10 mg Tablet 10 mg PO Q6-8H PRN (Reason: Pain, Severe) Qty: 30 RF: 0 Referrals: Josue Menchaca DO [Primary Care Provider] -
[2020-02-06 07:58] LABS: Add Manual Diff / Slide Review NO; Basophils Absolute Auto 0 /uL (0-100); Basophils Percent Auto 0.3 % (0-2); Eosinophils Absolute Auto 0 /uL (0-450); Eosinophils Percent Auto 0.3 % (2-4); Hematocrit 27.3 % (36-46); Hemoglobin 8.4 g/dL (12.0-16.0); Lymphocytes Absolute Auto 600 /uL (1100-4500); Mean Corpuscular HGB Conc 30.9 % (30-36); Mean Corpuscular Hemoglobin 31.1 PG (26-34); Mean Corpuscular Volume 100.7 fL (80-100); Monocytes Absolute Auto 500 /uL (0-900); Monocytes Percent Auto 10.5 % (3-14); Neutrophils Absolute Auto 3700 /uL (1500-7000); Neutrophils Percent Auto 75.9 % (50-75); Platelet Count 196 X10^3/uL (150-400); Red Blood Cell Count 2.71 X10^6/uL (4.0-5.2); White Blood Cell Count 4.9 X10^3/uL (4.5-11.0)
[2020-02-06] MEDS: MORPHINE 2 MG/ML INJ IV (07:59)
[2020-02-06 08:06] LABS: BUN Creatinine Ratio 20.6 (6-22); Blood Urea Nitrogen 13 mg/dL (7-17); Calcium 9.4 mg/dL (8.4-10.2); Chloride 95 mmol/L (98-107); Estimated Glomerular Filt Rate > 60.0 mL/min (>60); Glucose 97 mg/dL (80-110); HEMOLYSIS < 15 (0-50); Potassium 4.2 mmol/L (3.4-5.1); Sodium 135 mmol/L (137-145)
[2020-02-06 08:14] LABS: Carbon Dioxide 39 mmol/L (22-32)
--- NOTE | 2020-02-06 08:41 | PC.NURSE ---
Pt arrived back to room from CT. Pts o2 sat was 76% with a steady pleth. o2 was increased to 4L. Pt is now at 91%. MEGAAN leon
--- NOTE | 2020-02-06 09:14 | PC.NURSE ---
pt pulled IV out of R AC. bleeding controlled and wrapped with gauze and coban.
== END 2020-02-06 10:11 | disposition home or self-care (01) ==
PROVIDERS: Emergency Provider Emergency Medicine; PCP Family Medicine
DX: S30.0XXA Contusion of lower back and pelvis, initial encounter (principal); R51.9 Headache, unspecified; W19.XXXA Unspecified fall, initial encounter; E66.3 Overweight; I48.91 Unspecified atrial fibrillation; Z79.01 Long term (current) use of anticoagulants
CPT/HCPCS: 36415; 70450; 72132; 80048; 85025; J2270

== ENCOUNTER 2020-02-06 13:37 | Inpatient (IN) | payer MEDICARE, OTHER, SELFPAY ==
[2019-08-13 01:47] VITALS: PULSE 93; RESP 34; O2SAT 95
[2019-12-24 05:35] VITALS: BMI 39.8
[2020-02-06] VITALS (60 sets, daily range): BP systolic 55–173; BP diastolic 29–113; PULSE 55–117; RESP 12–27; TEMP 36.3–36.7; O2SAT 93–100; BMI 50.1
--- NOTE | 2020-02-06 | DI.RAD.S_ITS ---
PROCEDURE: XR CHEST 1V INDICATIONS: INTUBATION TECHNIQUE: One view of the chest was acquired. COMPARISON: [facility], , XR CHEST FOR PICC 1V, 12/24/2019, 8:49. FINDINGS: Surgical changes and devices: ETT is present, tip of which is at the aria. Lungs and pleura: Lung volumes are low. There is moderate diffuse interstitial pulmonary opacity. No pleural effusions or pneumothorax. Mediastinum: Mediastinal contours appear normal. Heart size is normal. Bones and chest wall: No suspicious bony lesions. Overlying soft tissues appear unremarkable. IMPRESSION: 1. Low ETT. 2. Low lung volumes with bilateral atelectasis versus pneumonia. Dictated by: Timmy Romero M.D. on 02/06/2020 at 13:35 Approved by: Timmy Romero M.D. on 02/06/2020 at 13:35
--- NOTE | 2020-02-06 13:52 | PC.NURSE ---
1350: Arrived via EMS with visible resp distress, Sat 74% on NRB, multiple does of narcan given in field, non responsive to painful stim. placed on bipap on arrival I:E 14\6 RR 20 with improvement to 96%. BP 124/[address] Stokes at bedside. RSI kit at bedside with meds available.
[2020-02-06 13:59] LABS: COVID19 -Nasal RAPID Negative (Negative)
[2020-02-06] MEDS: ETOMIDATE 2 MG/ML 10 ML VIAL 10 MG IV (14:09)
[2020-02-06] MEDS: SUCCINYLCHOLINE 200 MG/10 ML VIAL 100 MG IV (14:10)
[2020-02-06] MEDS: propofoL 1,000 MG/100 ML VIAL 4.028 MG IV (14:30)
[2020-02-06] MEDS: fentaNYL 1,000 MCG in DEXTROSE 5% IN WATER 230 ML 23.496 ML IV (14:45)
--- NOTE | 2020-02-06 14:50 | PC.NURSE ---
[id number]: Pt remains on BiPap at previous noted settings and prepped for intubation. ABG showing CO2 >130. Glidescope, code cart and trauma cart at bedside. RT in room. XR made aware. Pt given Etomidate 10mg and Succs 100mg. Intubated with 7.5 ETT, 25 @teeth with +color change, B/L breath sounds heard, equal rise and fall of chest, 18F OG inserted and connected to suction with +gastric drainage. Vent settings 400/60%/24/5. CXR obtained to confirm placement. [id number]: Propofol and fentanyl infusing per MAR, Bp noted to be decreasing and Dr Stokes made aware. Pt prepped for central line. 16F davalos placed with cloudy yellow urine. sent to lab. Central line placed by Dr Stokes and and placement confirmed with CXR. Levophed infusing for BP management. See MAR for medication admin. 1530: Pt awake, RASS +1, agitated, suctioned. Dr Stokes made aware and order for Versed gtt obtained. restraints in place. RT in room for repeat ABG. O2 decreased to 50% for O2 @ 100%. Repeat ABG shows pH 7.3 and CO2 67. 1557: Pt appears more calm. tolerating vent well. 1:1 with patient at this time. Daughter, Db at bedside. Report to be called to ICU
[2020-02-06] MEDS: NOREPINEPHRINE 4 MG in DEXTROSE 5% IN WATER 250 ML 38.1 ML IV (15:00)
[2020-02-06] MEDS: MIDAZOLAM 2 MG/2 ML VIAL (15:04)
--- NOTE | 2020-02-06 15:05 | DI.RAD.S_ITS ---
PROCEDURE: XR CHEST 1V INDICATIONS: central line placement TECHNIQUE: One view of the chest was acquired. COMPARISON: [facility], , XR CHEST 1V, 02/06/2020, 14:16. FINDINGS: Surgical changes and devices: ETT is present, tip of which is in expected location. Left-sided central venous catheter is present, tip of which projects over the upper IVC. NGT is present which extends below the level of the film. Lungs and pleura: Small right pleural effusion, as before. No pneumothorax. Moderate airspace opacity within the right mid and lower lung, as before. Mediastinum: Mediastinal contours appear normal. Heart size is normal. Bones and chest wall: No suspicious bony lesions. Overlying soft tissues appear unremarkable. IMPRESSION: 1. No change in right lung pneumonia. Continued plain film surveillance is recommended to ensure resolution, and to exclude underlying or central malignancy. Dictated by: Timmy Romero M.D. on 02/06/2020 at 14:22 Approved by: Timmy Romero M.D. on 02/06/2020 at 14:24
[2020-02-06 15:18] LABS: Add Manual Diff / Slide Review NO; Basophils Absolute Auto 0 /uL (0-100); Basophils Percent Auto 0.4 % (0-2); Eosinophils Absolute Auto 0 /uL (0-450); Hematocrit 29.5 % (36-46); Hemoglobin 8.8 g/dL (12.0-16.0); Lymphocytes Absolute Auto 200 /uL (1100-4500); Lymphocytes Percent Auto 2.2 % (25-40); Mean Corpuscular Volume 103.4 fL (80-100); Monocytes Absolute Auto 600 /uL (0-900); Monocytes Percent Auto 5.8 % (3-14); Neutrophils Absolute Auto 10000 /uL (1500-7000); Neutrophils Percent Auto 91.6 % (50-75); Platelet Count 224 X10^3/uL (150-400); Red Blood Cell Count 2.85 X10^6/uL (4.0-5.2)
--- NOTE | 2020-02-06 15:20 | ED.SOB ---
HPI - SOB/Dyspnea General Chief Complaint: Shortness of Breath/Dyspnea Stated Complaint: Respiratory failure Time Seen by Provider: 02/06/20 13:41 Source: EMS Mode of arrival: EMS Limitations: altered mental status and physical limitation History of Present Illness HPI Narrative: Patient is an 80-year-old female with history of obesity and home oxygen seen earlier today for contusion on back after falling on Eliquis. She received 2 mg of morphine at 8:[address] of her spine. She was noted to be pulling off her oxygen at times which caused her O2 to desat however we were able to replace that she was awake alert and oriented and her O2 quickly came up. She presents now in respiratory distress and altered mental status. EMS gave 2 doses of narcan prior to arrival without response. I have spoken with her son and [id number] who is an ER nurse and they state every time she has received morphine she has a delayed response causing her CO2 to arise and she is frequently intubated. DPOA Chico Nielsen [phone] Related Data Home Medications Medication Instructions Recorded Confirmed Eliquis 5 mg PO BID 05/24/19 12/23/19 Spiriva Respimat 1 inh INHALATION DAILY 05/24/19 12/23/19 acetaminophen 500 mg PO BID 05/24/19 12/23/19 ferrous sulfate 325 mg PO DAILY 05/24/19 12/23/19 fluoxetine 10 mg PO DAILY 05/24/19 12/23/19 latanoprost 1 drp OPHTHALMIC (EYE) BEDTIME 05/24/19 12/23/19 melatonin 3 mg PO BEDTIME PRN 05/24/19 12/23/19 montelukast 10 mg PO QPM 05/24/19 12/23/19 allopurinol 100 mg PO BID 12/20/19 12/23/19 carvedilol 6.25 mg PO BID 12/20/19 12/23/19 fluticasone propion-salmeterol 1 inh INHALATION BID 12/20/19 12/20/19 [Advair Diskus] furosemide 20 mg PO DAILY 12/20/19 12/23/19 pantoprazole 40 mg PO DAILY 12/20/19 12/23/19 budesonide-formoterol [Symbicort] 2 puff INHALATION BID 12/23/19 12/23/19 prednisone 4 mg PO DAILY 12/23/19 12/23/19 Previous Rx's Medication Instructions Recorded bisacodyl 10 mg PO BID PRN #20 tab 12/27/19 oxycodone 10 mg PO Q6-8H PRN #30 tab 12/27/19 tramadol 50 mg PO BID #30 tab 12/27/19 Allergies Allergy/AdvReac Type Severity Reaction Status Date / Time morphine Allergy Severe Anaphylaxis Verified 02/06/20 15:18 Sulfa (Sulfonamide Allergy Intermediate Verified 12/23/19 12:04 Antibiotics) Review of Systems Review of Systems ROS Unobtainable: Unobtainable due to medical condition Patient History Medical History (Updated 02/06/20 @ 15:36 by Marleny Stokes DO) Anemia (Acute) Atrial fibrillation (Acute) Cardiomegaly (Acute) Congestive heart failure (Acute) COPD (chronic obstructive pulmonary disease) (Acute) Depression (Acute) Diabetes (Acute) Hospitalization or health care facility admission within last 6 months (Acute) Hypercapnic respiratory failure (Acute 07/2019) JEANIE on CPAP (Acute) Osteoarthritis (Acute) PAF (paroxysmal atrial fibrillation) (Acute) Pulmonary hypertension (Acute) Ulcerative colitis (Acute) Surgical History History of incision and drainage (Acute 2019) Family History Mother Pneumonia Father Medical history unknown Sister Macular degeneration Social History household members: none Smoking Status: Former smoker alcohol intake: former Smoking Status: Former smoker alcohol intake frequency: 0-2 drinks per day Substance Use Type: does not use Exam Initial Vital Signs Initial Vital Signs: Vital Signs Pulse Rate 105 H 02/06/20 13:45 Respiratory Rate 18 02/06/20 13:45 Blood Pressure 124/62 02/06/20 13:45 Pulse Oximetry 94 02/06/20 13:45 Gen.: Unresponsive obese female HEENT: Head is atraumatic, EOMI Neck: Supple no JVD Lungs: Coarse bilaterally Cardiac: Regular murmur Abdomen: Nontender, soft Extremities: Peripheral pulses intact no gross deformity Neurologic: Unresponsive to verbal or painful stimuli sikn: Chronic foot wound, contusion noted lumbar spine. Procedures Central Line Placement Left IJ: Time Out Performed: Yes Patient Placed on Monitor/Pulse Ox: Yes MD Prep: mask, gown and gloves Central Line Prep: Chlorhexidine scrub and sterile drapes applied Local Anesthetic: lidocaine 1% Amount of anesthesia used (mL): 5 Ultrasound Used for Placement: Yes Central Line Lumen Inserted: triple Post Procedure: sutured in place, good blood return, all ports aspirated, flushed, capped and sterile dressing applied Post Procedure X-Ray: tip of catheter in good position and no pneumothorax seen Patient Tolerated Procedure: Well Complications: none Intubation Time out performed: Yes sedative: Etomidate Mg Given: 10 paralytic: Succinylcholine Mg Given: 100 Laryngoscope: fiber optic video scope ET Tube Size: 7.5 ET Tube Uncuffed: Yes Tube Secured Depth (cm): 24 Tube Secured Location: lips Tube Placement Confirmation: Visualized tube passing through cords, Equal breath sounds bilaterally, No breath sounds over epigastrium, Confirmation by capnometry and Chest Xray Patient Tolerated Procedure: Well Intubation Complications: none Course Orders Ordered: ED Orders 02/06/20 13:41 COVID19 Stat 02/06/20 13:50 Arterial Blood Gas Stat 02/06/20 14:56 BiPAP Ventilatory Support RT PROTOCOL 02/06/20 15:00 Complete Blood Count AUTO DIFF Stat Comprehensive Metabolic Panel Stat Lactate (Lactic Acid) Stat NT-proBNP (BNP-Adult 18+) Stat Troponin & CK Cardiac Panel Stat 02/06/20 15:05 XR chest 1V Stat Fentanyl 1,000 mcg/ Dextrose 250 mls @ 23.496 mls/hr IV TITRATE CATHY; Protocol Last Admin: 02/06/20 14:45 Dose: 0.7 mcg/kg/hr, 23.496 mls/hr Documented by: ANA Norepinephrine Bitartrate 4 mg (/ Dextrose) 254 mls @ 30.48 mls/hr IV TITRATE CATHY; Protocol Last Titration: 02/06/20 16:43 Dose: 12 mcg/min, 45.72 mls/hr Documented by: Admin: 02/06/20 15:00 Dose: 10 mcg/min, 38.1 mls/hr Documented by: ANA Midazolam HCl 50 mg/ Dextrose 250 mls @ 13.426 mls/hr IV TITRATE CATHY; Protocol Last Admin: 02/06/20 16:44 Dose: Not Given Documented by: ANA Discontinued Medications Etomidate (Amidate) 10 mg IV NOW ONE Stop: 02/06/20 16:17 Last Admin: 02/06/20 14:09 Dose: 10 mg Documented by: ANA Furosemide (Lasix) 40 mg IV NOW ONE Stop: 02/06/20 16:08 Last Admin: 02/06/20 16:18 Dose: 40 mg Documented by: ANA Propofol (Propofol) 1,000 mg in 100 mls @ 4.028 mls/hr IV TITRATE CATHY; Protocol Last Titration: 02/06/20 16:38 Dose: 0 mcg/kg/min, 0 mls/hr Documented by: Titration: 02/06/20 16:19 Dose: 3 mcg/kg/min, 2.417 mls/hr Documented by: Titration: 02/06/20 15:50 Dose: 5 mcg/kg/min, 4.028 mls/hr Documented by: Titration: 02/06/20 15:30 Dose: 10 mcg/kg/min, 8.056 mls/hr Documented by: Admin: 02/06/20 14:30 Dose: 5 mcg/kg/min, 4.028 mls/hr Documented by: ANA Midazolam HCl 50 mg/ Dextrose 260 mls @ 13.963 mls/hr IV TITRATE CATHY; Protocol Last Admin: 02/06/20 15:55 Dose: 0.02 mg/kg/hr, 13.963 mls/hr Documented by: ANA Succinylcholine Chloride (Quelicin) 100 mg IV NOW ONE Stop: 02/06/20 16:18 Last Admin: 02/06/20 14:10 Dose: 100 mg Documented by: ANA Vital Signs Vital signs: Vital Signs - 8 hr 02/06/20 13:45 02/06/20 14:00 02/06/20 14:05 Pulse Rate 105 H 109 H 109 H Respiratory Rate 18 Blood Pressure 124/62 146/67 H 173/71 H Pulse Oximetry 94 97 97 02/06/20 14:10 02/06/20 14:15 02/06/20 14:20 Pulse Rate 108 H 113 H 115 H Respiratory Rate 21 17 24 Blood Pressure 172/75 H 172/75 H 150/65 H Pulse Oximetry 93 100 96 02/06/20 14:30 02/06/20 14:40 02/06/20 14:50 Pulse Rate 117 H 114 H 81 Respiratory Rate 18 21 Blood Pressure 140/61 128/103 H 159/113 H Pulse Oximetry 95 94 96 02/06/20 14:52 02/06/20 14:53 02/06/20 14:55 Pulse Rate 80 79 79 Respiratory Rate Blood Pressure 74/37 L 63/29 L 55/30 L Pulse Oximetry 95 96 97 02/06/20 14:57 02/06/20 15:00 02/06/20 15:05 Pulse Rate 78 77 93 H Respiratory Rate 19 20 Blood Pressure 61/37 L 69/42 L 106/53 L Pulse Oximetry 98 98 95 02/06/20 15:10 02/06/20 15:15 02/06/20 15:20 Pulse Rate 79 79 73 Respiratory Rate 24 21 27 H Blood Pressure 92/60 99/57 L 122/70 Pulse Oximetry 99 100 100 02/06/20 15:25 02/06/20 15:30 02/06/20 15:35 Pulse Rate 79 74 73 Respiratory Rate 14 16 22 Blood Pressure 104/51 L 115/57 L 100/61 Pulse Oximetry 99 100 100 02/06/20 15:40 02/06/20 15:45 02/06/20 15:50 Pulse Rate 71 72 75 Respiratory Rate 24 22 23 Blood Pressure 117/55 L 115/69 120/56 L Pulse Oximetry 100 100 100 MDM - SOB/Dyspnea Lab Data Attestation: I reviewed the patient's lab results. Result diagrams: 02/06/20 15:00 02/06/20 15:00 Labs: Lab Results 02/06/20 02/06/20 02/06/20 Range/Units 13:41 13:50 15:00 WBC 11.0 D (4.5-11.0) X10^3/uL RBC 2.85 L (4.0-5.2) X10^6/uL Hgb 8.8 L (12.0-16.0) g/dL Hct 29.5 L (36-46) % MCV 103.4 H (80-100) fL MCH 31.0 (26-34) PG MCHC 30.0 (30-36) % RDW 17.0 H (11.6-14.8) % Plt Count 224 (150-400) X10^3/uL Neut % (Auto) 91.6 H (50-75) % Lymph % (Auto) 2.2 L (25-40) % Patrick % (Auto) 5.8 (3-14) % Eos % (Auto) 0.0 L (2-4) % Baso % (Auto) 0.4 (0-2) % Neut # (Auto) 62586 H (6667-5171) /uL Lymph # (Auto) 200 L (1377-8307) /uL Patrick # (Auto) 600 (0-900) /uL Eos # (Auto) 0 (0-450) /uL Baso # (Auto) 0 (0-100) /uL ABG pH 6.94 L* (7.35-7.45) ABG pCO2 > 130.0 H* (35-45) mmHg ABG pO2 102 H (80-100) mmHg ABG HCO3 (22-26) mmol/L ABG Total CO2 (21-31) mmol/L ABG O2 Saturation (95-100) % ABG Base Excess (-2-2) mmol/L FiO2 Sodium (137-145) mmol/L Potassium (3.4-5.1) mmol/L Chloride (98-107) mmol/L Carbon Dioxide (22-32) mmol/L BUN (7-17) mg/dL Creatinine (0.52-1.04) mg/dL Estimated GFR (>60) mL/min BUN/Creatinine Ratio (6-22) Glucose (80-110) mg/dL Lactate (0.7-2.1) mmol/L Calcium (8.4-10.2) mg/dL Total Bilirubin (0.2-1.3) mg/dL AST (14-36) IU/L ALT (<35) IU/L Alkaline Phosphatase (38-126) U/L Total Creatine Kinase (30-135) U/L CK-MB (CK-2) CK-MB (CK-2) Rel Index Troponin I (0.01-0.034) ng/mL NT-Pro-B Natriuret Pep (<450) pg/mL Total Protein (6.3-8.2) g/dL Albumin (3.5-5.0) g/dL Globulin (1.7-4.1) g/dL Albumin/Globulin Ratio (1.0-2.8) COVID-19 PCR Negative (Negative) 02/06/20 02/06/20 02/06/20 Range/Units 15:00 15:00 15:48 WBC (4.5-11.0) X10^3/uL RBC (4.0-5.2) X10^6/uL Hgb (12.0-16.0) g/dL Hct (36-46) % MCV (80-100) fL MCH (26-34) PG MCHC (30-36) % RDW (11.6-14.8) % Plt Count (150-400) X10^3/uL Neut % (Auto) (50-75) % Lymph % (Auto) (25-40) % Patrick % (Auto) (3-14) % Eos % (Auto) (2-4) % Baso % (Auto) (0-2) % Neut # (Auto) (0720-2261) /uL Lymph # (Auto) (9200-8398) /uL Patrick # (Auto) (0-900) /uL Eos # (Auto) (0-450) /uL Baso # (Auto) (0-100) /uL ABG pH 7.31 L (7.35-7.45) ABG pCO2 67.8 H* (35-45) mmHg ABG pO2 118 H (80-100) mmHg ABG HCO3 34 H (22-26) mmol/L ABG Total CO2 36 H (21-31) mmol/L ABG O2 Saturation 98 (95-100) % ABG Base Excess 8.0 H (-2-2) mmol/L FiO2 0.50 Sodium 134 L (137-145) mmol/L Potassium 4.5 (3.4-5.1) mmol/L Chloride 96 L (98-107) mmol/L Carbon Dioxide 38 H (22-32) mmol/L BUN 15 (7-17) mg/dL Creatinine 0.78 (0.52-1.04) mg/dL Estimated GFR > 60.0 (>60) mL/min BUN/Creatinine Ratio 19.2 (6-22) Glucose 98 (80-110) mg/dL Lactate 1.0 (0.7-2.1) mmol/L Calcium 9.3 (8.4-10.2) mg/dL Total Bilirubin 0.8 (0.2-1.3) mg/dL AST 119 H (14-36) IU/L ALT 23 (<35) IU/L Alkaline Phosphatase 149 H (38-126) U/L Total Creatine Kinase 23 L (30-135) U/L CK-MB (CK-2) TNP CK-MB (CK-2) Rel Index TNP Troponin I 0.056 H (0.01-0.034) ng/mL NT-Pro-B Natriuret Pep 4530 H (<450) pg/mL Total Protein 6.2 L (6.3-8.2) g/dL Albumin 3.4 L (3.5-5.0) g/dL Globulin 2.8 (1.7-4.1) g/dL Albumin/Globulin Ratio 1.2 (1.0-2.8) COVID-19 PCR (Negative) Imaging Data Chest x-ray: Radiologist's Impression: PROCEDURE: XR CHEST 1V INDICATIONS: central line placement TECHNIQUE: One view of the chest was acquired. COMPARISON: [facility], XR CHEST 1V, 02/06/2020, 14:16. FINDINGS: Surgical changes and devices: ETT is present, tip of which is in expected location. Left-sided central venous catheter is present, tip of which projects over the upper IVC. NGT is present which extends below the level of the film. Lungs and pleura: Small right pleural effusion, as before. No pneumothorax. Moderate airspace opacity within the right mid and lower lung, as before. Mediastinum: Mediastinal contours appear normal. Heart size is normal. Bones and chest wall: No suspicious bony lesions. Overlying soft tissues appear unremarkable. IMPRESSION: 1. No change in right lung pneumonia. Continued plain film surveillance is recommended to ensure resolution, and to exclude underlying or central malignancy. Dictated by: Timmy Romero M.D. on 02/06/2020 at 14:22 CXR: Radiologist's Impression: PROCEDURE: XR CHEST 1V INDICATIONS: INTUBATION TECHNIQUE: One view of the chest was acquired. COMPARISON: [facility], XR CHEST FOR PICC 1V, 12/24/2019, 8:49. FINDINGS: Surgical changes and devices: ETT is present, tip of which is at the aria. Lungs and pleura: Lung volumes are low. There is moderate diffuse interstitial pulmonary opacity. No pleural effusions or pneumothorax. Mediastinum: Mediastinal contours appear normal. Heart size is normal. Bones and chest wall: No suspicious bony lesions. Overlying soft tissues appear unremarkable. IMPRESSION: 1. Low ETT. 2. Low lung volumes with bilateral atelectasis versus pneumonia. Dictated by: Timmy Romero M.D. on 02/06/2020 at 13:35 MDM Narrative Medical decision making narrative: Patient is thought to have severe CO2 retention based on her previous exam this morning. She is immediately placed on BiPAP. ABG shows severe CO2 retention with a CO2 greater than 130 and a pH of 6.9. BiPAP was used and still intubation was set up and ready. Intubation went without complications. She did start becoming more responsive she received a bolus of propofol and blood pressure decreased. Central line was placed and propofol drip stopped. Levophed started. Patient was transition to fentanyl and Versed she continue to require Levophed. Repeat ABG showed significant improvement with a pCO2 of 67. This seems to be closer to her baseline and she has a pH of 7.3. Dr. dougherty updated on patient's symptoms test results and agrees with admission Critical Care Time Critical Care Time Critical Care Time: Yes Total Critical Care Time: 80 Attestation: The high probability of a clinically significant, sudden or life threatening deterioration of the [cardiovascular] system(s) required my full and direct attention, intervention and personal management. The aggregate critical care time was 80 minutes. This time is in addition to time spent performing reported procedures but includes the following: [x] Data Review and interpretation [x] Patient assessment and monitoring of vital signs [x] Documentation [x] Medication orders and management Discharge Plan Departure Patient Disposition: Admitted As Inpatient Clinical Impression: Acute hypercapnic respiratory failure Referrals: Josue Menchaca DO [Primary Care Provider] - Admit Date/Time: 02/06/20 15:50 Admit Provider: Holly Dougherty
[2020-02-06 15:26] LABS: Alanine Aminotransferase 23 IU/L (<35); Albumin 3.4 g/dL (3.5-5.0); Albumin Globulin Ratio 1.2 (1.0-2.8); Alkaline Phosphatase 149 U/L (38-126); Aspartate Aminotransferase 119 IU/L (14-36); BUN Creatinine Ratio 19.2 (6-22); Bilirubin Total 0.8 mg/dL (0.2-1.3); Blood Urea Nitrogen 15 mg/dL (7-17); Calcium 9.3 mg/dL (8.4-10.2); Carbon Dioxide 38 mmol/L (22-32); Chloride 96 mmol/L (98-107); Creatine Kinase 23 U/L (30-135); Estimated Glomerular Filt Rate > 60.0 mL/min (>60); Globulin 2.8 g/dL (1.7-4.1); Glucose 98 mg/dL (80-110); HEMOLYSIS < 15 (0-50); Potassium 4.5 mmol/L (3.4-5.1); Sodium 134 mmol/L (137-145); Total Protein 6.2 g/dL (6.3-8.2)
[2020-02-06 15:36] LABS: PCO2 ABG > 130.0 mmHg (35-45); PO2 ABG 102 mmHg (80-100); pH ABG 6.94 (7.35-7.45)
[2020-02-06 15:39] LABS: NT-proBNP (BNP-Adult 18+) 4530 pg/mL (<450); Troponin I 0.056 ng/mL (0.01-0.034)
[2020-02-06] MEDS: MIDAZOLAM 5 MG/ML VIAL (15:50)
[2020-02-06] MEDS: MIDAZOLAM 50 MG in DEXTROSE 5% IN WATER 250 ML 13.963 ML IV (15:55)
[2020-02-06] MEDS: FUROSEMIDE 40 MG/4 ML VIAL IV (16:18)
[2020-02-06 16:46] LABS: pH ABG 7.31 (7.35-7.45)
[2020-02-06 16:47] LABS: HCO3 ABG 34 mmol/L (22-26); PCO2 ABG 67.8 mmHg (35-45); PO2 ABG 118 mmHg (80-100)
--- NOTE | 2020-02-06 16:47 | PC.NURSE ---
1640: polly DC'd. remains on fentanyl and versed for sedation. Lasix given. 130ml output for entire time in ED. Levo titrated per MAR to MAP 65. appears calm and tolerating vent well. RT in for adjustments 400/40%/24/5
[2020-02-06 16:48] LABS: Oxygen Saturation ABG 98 % (95-100); TCO2 ABG 36 mmol/L (21-31)
--- NOTE | 2020-02-06 16:58 | PC.NURSE ---
Addendum entered by Nora Harrington R.N. 02/06/20 17:53: Noted change, ICU report given to MEAGAN Trivedi Original Note: ICU report given to MEAGAN Fuentes.
--- NOTE | 2020-02-06 17:51 | P.HP_ITS ---
History of Present Illness History of Present Illness Date Patient Seen: 02/06/20 Chief complaint: Respiratory failure Narrative: Mary Nielsen is an 80-year-old female with chronic respiratory failure, atrial fibrillation, congestive heart failure, 2 morbid obesity who fell injured her back. She is on Pradaxa and had a significant contusion. She was valued evaluated in the emergency department where she was given 2 mg of IV morphine this morning. She underwent a CT scan scan of her spine which was negative for any acute hematoma infection or fracture. The patient then had a delayed response and presented back to the hospital and acute respiratory failure. Patient has known obstructive sleep apnea for which she takes CPAP. She is also C diff positive and currently under treatment with oral vancomycin. She has a history of diabetes COPD and anemia. The patient was intubated in the emergency department. By report her pCO2 was greater than 100. She was acid otic with pH of 6.9. Patient was given propofol in the emergency department for sedation and became hypotensive. She required norepinephrine for pressure support. Patient is now in the intensive care unit on Versed and Ativan drip. She continues to be on Levophed which we are actively titrating downward. she is able to open her eyes. Patient is admitted to the hospital at this time for acute respiratory failure. Patient History Medical History Anemia (Acute) Atrial fibrillation (Acute) Cardiomegaly (Acute) Congestive heart failure (Acute) COPD (chronic obstructive pulmonary disease) (Acute) Depression (Acute) Diabetes (Acute) Hospitalization or health care facility admission within last 6 months (Acute) Hypercapnic respiratory failure (Acute 07/2019) JEANIE on CPAP (Acute) Osteoarthritis (Acute) PAF (paroxysmal atrial fibrillation) (Acute) Pulmonary hypertension (Acute) Ulcerative colitis (Acute) Surgical History History of incision and drainage (Acute 2019) Family & Social History Family History Mother Pneumonia Father Medical history unknown Sister Macular degeneration Social History: household members none Tobacco & Substance use: Smoking Status Former smoker alcohol intake former alcohol intake frequency 0-2 drinks per day Substance Use Type does not use Meds Home Medications and Allergies Home Medications Medication Instructions Recorded Confirmed Type Eliquis 5 mg PO BID 05/24/19 12/23/19 History Spiriva Respimat 1 inh INHALATION DAILY 05/24/19 12/23/19 History acetaminophen 500 mg PO BID 05/24/19 12/23/19 History ferrous sulfate 325 mg PO DAILY 05/24/19 12/23/19 History fluoxetine 10 mg PO DAILY 05/24/19 12/23/19 History latanoprost 1 drp OPHTHALMIC (EYE) BEDTIME 05/24/19 12/23/19 History melatonin 3 mg PO BEDTIME PRN 05/24/19 12/23/19 History montelukast 10 mg PO QPM 05/24/19 12/23/19 History allopurinol 100 mg PO BID 12/20/19 12/23/19 History carvedilol 6.25 mg PO BID 12/20/19 12/23/19 History fluticasone propion-salmeterol 1 inh INHALATION BID 12/20/19 12/20/19 History [Advair Diskus] furosemide 20 mg PO DAILY 12/20/19 12/23/19 History pantoprazole 40 mg PO DAILY 12/20/19 12/23/19 History budesonide-formoterol [Symbicort] 2 puff INHALATION BID 12/23/19 12/23/19 Hist ory prednisone 4 mg PO DAILY 12/23/19 12/23/19 History bisacodyl 10 mg PO BID PRN #20 tab 12/27/19 Rx oxycodone 10 mg PO Q6-8H PRN #30 tab 12/27/19 Rx tramadol 50 mg PO BID #30 tab 12/27/19 Rx Allergies Allergy/AdvReac Type Severity Reaction Status Date / Time morphine Allergy Severe Anaphylaxis Verified 02/06/20 15:18 Sulfa (Sulfonamide Allergy Intermediate Verified 12/23/19 12:04 Antibiotics) Review of Systems Review of Systems ROS: Yes unobtainable due to mental status Exam Vital Signs (past 8 hours): - 02/06/20 13:45 02/06/20 14:00 02/06/20 14:05 Temperature Pulse Rate 105 H 109 H 109 H Respiratory Rate 18 Blood Pressure 124/62 146/67 H 173/71 H Pulse Oximetry 94 97 97 02/06/20 14:10 02/06/20 14:15 11/15/20 14:20 Temperature Pulse Rate 108 H 113 H 115 H Respiratory Rate 21 17 24 Blood Pressure 172/75 H 172/75 H 150/65 H Pulse Oximetry 93 100 96 02/06/20 14:30 02/06/20 14:40 02/06/20 14:50 Temperature Pulse Rate 117 H 114 H 81 Respiratory Rate 24 21 Blood Pressure 140/61 128/103 H 159/113 H Pulse Oximetry 95 94 96 02/06/20 14:52 02/06/20 14:53 02/06/20 14:55 Temperature Pulse Rate 80 79 79 Respiratory Rate Blood Pressure 74/37 L 63/29 L 55/30 L Pulse Oximetry 95 96 97 02/06/20 14:57 02/06/20 15:00 02/06/20 15:05 Temperature Pulse Rate 78 77 93 H Respiratory Rate 19 20 Blood Pressure 61/37 L 69/42 L 106/53 L Pulse Oximetry 98 98 95 02/06/20 15:10 02/06/20 15:15 02/06/20 15:20 Temperature Pulse Rate 79 79 73 Respiratory Rate 24 21 27 H Blood Pressure 92/60 99/57 L 122/70 Pulse Oximetry 99 100 100 02/06/20 15:25 02/06/20 15:30 02/06/20 15:35 Temperature Pulse Rate 79 74 73 Respiratory Rate 24 16 22 Blood Pressure 104/51 L 115/57 L 100/61 Pulse Oximetry 99 100 100 02/06/20 15:40 02/06/20 15:45 02/06/20 15:50 Temperature Pulse Rate 71 72 75 Respiratory Rate 24 22 23 Blood Pressure 117/55 L 115/69 120/56 L Pulse Oximetry 100 100 100 02/06/20 15:55 02/06/20 16:00 02/06/20 16:06 Temperature Pulse Rate 74 70 60 Respiratory Rate 21 24 Blood Pressure 98/54 L 94/55 L Pulse Oximetry 100 100 100 02/06/20 16:07 02/06/20 16:11 02/06/20 16:15 Temperature Pulse Rate 63 62 60 Respiratory Rate 24 24 Blood Pressure 86/47 L 84/43 L Pulse Oximetry 100 100 100 02/06/20 16:16 02/06/20 16:20 02/06/20 16:25 Temperature Pulse Rate 60 60 60 Respiratory Rate 24 24 24 Blood Pressure 105/59 L 100/59 L 101/59 L Pulse Oximetry 100 99 100 02/06/20 16:30 02/06/20 16:31 02/06/20 16:36 Temperature Pulse Rate 61 61 61 Respiratory Rate 24 24 24 Blood Pressure 119/80 104/57 L Pulse Oximetry 100 99 100 02/06/20 16:41 02/06/20 16:48 02/06/20 16:50 Temperature Pulse Rate 62 63 62 Respiratory Rate 18 24 24 Blood Pressure 86/56 L 109/58 L 98/64 Pulse Oximetry 100 100 100 02/06/20 16:56 02/06/20 17:00 02/06/20 17:01 Temperature Pulse Rate 63 64 65 Respiratory Rate 24 24 24 Blood Pressure 114/86 118/56 L Pulse Oximetry 100 100 100 02/06/20 17:05 02/06/20 17:10 02/06/20 17:12 Temperature 97.3 F L Pulse Rate 63 63 78 Respiratory Rate 24 24 20 Blood Pressure 116/61 119/63 140/71 Pulse Oximetry 100 100 100 02/06/20 17:15 02/06/20 17:20 Temperature Pulse Rate 63 66 Respiratory Rate 24 24 Blood Pressure 126/61 Pulse Oximetry 100 100 Fraction of Inspired Oxygen 100 Oxygen Delivery Method Mechanical Ventilation Narrative Exam Narrative: Sedated female lying in bed able to open eyes HEENT: Normocephalic atraumatic, patient is intubated, eyes are closed she is able to blink to respond to voice Lungs: Decreased breath sounds, no crackles rhonchi or wheezes Cardiac exam: Regular rate and rhythm, normal S1-S2 Abdomen: Obese soft nontender, no appreciable hepatosplenomegaly Extremities: 1 to 2+ pitting edema bilaterally Left foot with dressing in place. Dressing has been removed. Patient has s caling dry skin right foot reveals a old healing area along the lateral portion of the foot Neuro exam not obtained as the patient is sedated somewhat responsive but not fully Objective Labs Result Diagrams: 02/06/20 15:00 02/06/20 15:00 Labs: Laboratory Results - last 24 hr 02/06/20 02/06/20 02/06/20 13:41 13:50 15:00 WBC 11.0 D RBC 2.85 L Hgb 8.8 L Hct 29.5 L MCV 103.4 H MCH 31.0 MCHC 30.0 RDW 17.0 H Plt Count 224 Neut % (Auto) 91.6 H Lymph % (Auto) 2.2 L [place] % (Auto) 5.8 Eos % (Auto) 0.0 L Baso % (Auto) 0.4 Neut # (Auto) 95898 H Lymph # (Auto) 200 L [place] # (Auto) 600 Eos # (Auto) 0 Baso # (Auto) 0 ABG pH 6.94 L* ABG pCO2 > 130.0 H* ABG pO2 102 H ABG HCO3 ABG Total CO2 ABG O2 Saturation ABG Base Excess FiO2 Sodium Potassium Chloride Carbon Dioxide BUN Creatinine Estimated GFR BUN/Creatinine Ratio Glucose Lactate Calcium Total Bilirubin AST ALT Alkaline Phosphatase Total Creatine Kinase CK-MB (CK-2) CK-MB (CK-2) Rel Index Troponin I NT-Pro-B Natriuret Pep Total Protein Albumin Globulin Albumin/Globulin Ratio COVID-19 PCR Negative 02/06/20 02/06/20 02/06/20 15:00 15:00 15:48 WBC RBC Hgb Hct MCV MCH MCHC RDW Plt Count Neut % (Auto) Lymph % (Auto) [place] % (Auto) Eos % (Auto) Baso % (Auto) Neut # (Auto) Lymph # (Auto) [place] # (Auto) Eos # (Auto) Baso # (Auto) ABG pH 7.31 L ABG pCO2 67.8 H* ABG pO2 118 H ABG HCO3 34 H ABG Total CO2 36 H ABG O2 Saturation 98 ABG Base Excess 8.0 H FiO2 0.50 Sodium 134 L Potassium 4.5 Chloride 96 L Carbon Dioxide 38 H BUN 15 Creatinine 0.78 Estimated GFR > 60.0 BUN/Creatinine Ratio 19.2 Glucose 98 Lactate 1.0 Calcium 9.3 Total Bilirubin 0.8 AST 119 H ALT 23 Alkaline Phosphatase 149 H Total Creatine Kinase 23 L CK-MB (CK-2) TNP CK-MB (CK-2) Rel Index TNP Troponin I 0.056 H NT-Pro-B Natriuret Pep 4530 H Total Protein 6.2 L Albumin 3.4 L Globulin 2.8 Albumin/Globulin Ratio 1.2 COVID-19 PCR Assessment & Plan Assessment & Plan narrative: Impression 1. 80-year-old female admitted to the hospital with acute hypoxic hypercapnic respiratory failure -patient with chronic respiratory failure, she presents with acute on chronic respiratory failure following administration of morphine -initial pH 6.94, pCO2 130, with a PO2 of 102 -patient was intubated in the emergency department -patient developed hypotension related to propofol -propofol was discontinued, patient was placed on Levophed, she continues on Versed and fentanyl -by report patient has delayed response to morphine and has been intubated multiple times in the past -patient has known obstructive sleep apnea and uses trilogy/BiPAP at home -chest x-ray in emergency department reveals no obvious infiltrate 2. Chronic congestive heart failure with preserved ejection fraction -echocardiogram July 2019 reveals a normal left ventricular function and normal right ventricular function -patient has an elevated proBNP of 4530 -she likely has chronic diastolic heart failure -will hold IV fluids at this time -will resume Coreg when she is able to take p.o. -given hypotension will hold Lasix at this time -patient with mild bump in troponin, doubt acute coronary disease -suspect related to hypotension during her episode of acute respiratory failure will continue to follow troponins close 3 morbid obesity -patient's obesity likely to impact her respiratory failure, this likely exacerbates her hypoventilation leading to significant respiratory failure with drug that suppress her respiratory drive -given her chronic respiratory failure on chronic oxygen and obstructive apnea her weight is likely contributing to recurrent episodes of respiratory failure associated with morphine narcotics -once patient is extubated will ask for nutrition, to discuss dietary planning 4. Chronic atrial fibrillation -patient is on Eliquis -Coreg has been held -will treat rapid heart rate with IV metoprolol as needed -given hypotension will defer rate control medications at this time 5. History of C diff -patient previously was on oral vancomycin -will continue if she is currently under treatment 6. GERD -given history of C difficile will hold PPI -will use H2 kiay instead given association of PPIs with C difficile 7. Anemia -, chronic -continue iron when she is able to take oral medications 8. COPD -continue budesonide full med oral -continue Advair 9. Gout -resume ill-appearing when able to take p.o. 10. Back pain, hematoma, following -will continue to monitor closely Patient does have a surrogate decision maker who is her daughter. She remains a full code at this time. Patient will be placed on DVT prophylaxis. IV fluids will be held given her history of heart failure 1 hour critical care time spent with this patient
[2020-02-06] MEDS: MIDAZOLAM 50 MG in DEXTROSE 5% IN WATER 250 ML 13.364 ML IV (19:43)
[2020-02-06] MEDS: fentaNYL 1,000 MCG in DEXTROSE 5% IN WATER 250 ML 24.287 ML IV (19:52)
--- NOTE | 2020-02-06 21:20 | PC.NURSE ---
Pt arrived per stretcher from ED, accompanied by RN and RT. Connected to Vent, initial settings TV 400, FiO2 40%, rate 24, +5 peep. current settings: FiO2 35%, rate 18, Vt 400, +5 peep. O2Sats atable at 100%etco2 35. levo drip titrated for map >65, Fentanyl titrated down to 0.5mcg/kg/hr, Versed titrated to 0.011mg/kg/hr. Admission assessment completed.
[2020-02-06] MEDS: NYSTATIN POWDER 15GM 1 APPLIC TOP (21:36)
[2020-02-06] MEDS: NOREPINEPHRINE 4 MG in DEXTROSE 5% IN WATER 250 ML IV (21:40)
[2020-02-06] MEDS: VANCOMYCIN 125 MG CAPSULE PO (22:26)
--- NOTE | 2020-02-06 22:51 | PC.NURSE ---
addendum: Fentanyl and versed titrated to effect. Pt calm and cooperative with care, Levo remains at 1mcg/min
[2020-02-06] MEDS: FAMOTIDINE 20 MG/50 ML PIGGYBACK 200 MG IV (23:54)
[2020-02-07] VITALS (64 sets, daily range): BP systolic 81–117; BP diastolic 50–80; PULSE 66–109; RESP 7–30; TEMP 36.1–37.1; O2SAT 90–98
--- NOTE | 2020-02-07 02:48 | PC.NURSE ---
Addendum entered by Natividad Talbot R.N. 02/07/20 03:58: Pt now resting and calm. WC Addendum entered by Natividad Talbot R.N. 02/07/20 03:19: Pt continues to be restless trying to pull at intubation tube. Versed increased to 0.02 mg/kr/hr per protocol Addendum entered by Natividad Talbot R.N. 02/07/20 03:18: Pt showing signs up pain again and reports pain. Restless in bed. Fentanyl gtt increased to 0.9mcg/kg/hr per protocol. Original Note: Pt responsive and opens eyes to verbal and touch stimuli. At start of shift pt denies pain. Pt tolerating vent. Settings at TV 400, FiO2 30%, rate 16, peep 5. Levophed off at 2330 with a MAP of 89. VO from [facility] to keep MAP above 65. [facility] recommends titrate fentanyl gtt if pt tolerates. At 0145 pt showing no signs of pain fentanyl gtt decreased to 0.5 mcg/kr/hr from 0.7 mcg/kg/hr. At 0230 pt wincing and nods head when asked if in pain. Fentanyl gtt increased to 0.7 mcg/kr/hr per protocol. Pt now resting showing no signs of pain. Turning pt q 2 hours. Heals elevated off bed. [place] cath intact draining clear yellow urine.
[2020-02-07] MEDS: fentaNYL 1,000 MCG in DEXTROSE 5% IN WATER 250 ML 31.226 ML IV (03:41)
[2020-02-07] MEDS: VANCOMYCIN 125 MG CAPSULE PO ×2 (03:54→11:15)
[2020-02-07 06:31] LABS: Alanine Aminotransferase 20 IU/L (<35); Albumin Globulin Ratio 1.2 (1.0-2.8); Alkaline Phosphatase 119 U/L (38-126); Aspartate Aminotransferase 70 IU/L (14-36); BUN Creatinine Ratio 26.2 (6-22); Bilirubin Total 0.6 mg/dL (0.2-1.3); Blood Urea Nitrogen 22 mg/dL (7-17); Calcium 9.2 mg/dL (8.4-10.2); Carbon Dioxide 35 mmol/L (22-32); Chloride 96 mmol/L (98-107); Estimated Glomerular Filt Rate > 60.0 mL/min (>60); Globulin 2.5 g/dL (1.7-4.1); Glucose 92 mg/dL (80-110); HEMOLYSIS < 15 (0-50); NT-proBNP (BNP-Adult 18+) 3140 pg/mL (<450); Potassium 3.9 mmol/L (3.4-5.1); Sodium 133 mmol/L (137-145); Total Protein 5.5 g/dL (6.3-8.2); Troponin I 0.093 ng/mL (0.01-0.034)
[2020-02-07 06:47] LABS: Add Manual Diff / Slide Review NO; Basophils Absolute Auto 0 /uL (0-100); Basophils Percent Auto 0.3 % (0-2); Eosinophils Absolute Auto 0 /uL (0-450); Eosinophils Percent Auto 0.3 % (2-4); Hematocrit 25.1 % (36-46); Hemoglobin 7.9 g/dL (12.0-16.0); Lymphocytes Absolute Auto 700 /uL (1100-4500); Lymphocytes Percent Auto 10.7 % (25-40); Mean Corpuscular HGB Conc 31.5 % (30-36); Mean Corpuscular Hemoglobin 31.1 PG (26-34); Mean Corpuscular Volume 98.7 fL (80-100); Monocytes Absolute Auto 700 /uL (0-900); Monocytes Percent Auto 11.5 % (3-14); Neutrophils Absolute Auto 4900 /uL (1500-7000); Neutrophils Percent Auto 77.2 % (50-75); Platelet Count 213 X10^3/uL (150-400); Red Blood Cell Count 2.54 X10^6/uL (4.0-5.2); Red Cell Distribution Width 17.6 % (11.6-14.8); White Blood Cell Count 6.4 X10^3/uL (4.5-11.0)
--- NOTE | 2020-02-07 06:51 | PC.NURSE ---
Pt Map of 58. Levophed increased per protocol to 2mccg/min. Decreased Fentanyl to 0.08 mcg/kg/hr.
[2020-02-07 07:02] LABS: Fractionated Inspired Oxygen 30; HCO3 ABG 36 mmol/L (22-26); Oxygen Saturation ABG 96 % (95-100); PCO2 ABG 41.1 mmHg (35-45); PO2 ABG 72 mmHg (80-100); TCO2 ABG 37 mmol/L (21-31); pH ABG 7.55 (7.35-7.45)
[2020-02-07 07:11] LABS: Procalcitonin 5.41 ng/mL (<0.5)
[2020-02-07] MEDS: ALBUTEROL 2.5 MG/3 ML NEB (ADULT) INH ×3 (07:16→18:33)
--- NOTE | 2020-02-07 07:30 | DI.RAD.S_ITS ---
PROCEDURE: XR CHEST 1V INDICATIONS: intubated TECHNIQUE: One view of the chest was acquired. COMPARISON: [facility], CT, CT LUMBAR SPINE W CON, 02/06/2020, 8:24. [facility], CR, XR CHEST 1V, 02/06/2020, 15:05. [facility], CR, XR CHEST 1V, 02/06/2020, 14:16. FINDINGS: Surgical changes and devices: Endotracheal tube in the mid to lower trachea. Enteric tube coursing into the stomach. The tip is not seen. Left sided central venous line with the tip in the lower 3rd of the SVC. Lungs and pleura: Suspect mild opacity at the right lung base. Small right pleural effusion. Trace left pleural effusion. No pneumothorax. Mediastinum: Mediastinal contours appear unchanged. Heart size is enlarged. Bones and chest wall: No suspicious bony lesions. Prior vertebroplasty. Overlying soft tissues appear unremarkable. IMPRESSION: 1. Tubes and lines project in the expected locations. 2. Small right pleural effusion. 3. Suspect mild opacity at the right lung base. This could be due to atelectasis, pneumonia, or aspiration. Dictated by: Petey Mcclelland M.D. on 02/07/2020 at 8:21 Approved by: Petey Mcclelland M.D. on 02/07/2020 at 8:26
[2020-02-07] MEDS: ENOXAPARIN 40 MG/0.4 ML SYRINGE SUBCUT ×2 (09:24→21:18)
[2020-02-07] MEDS: AMPICILLIN/SULBACTAM 3 GM 3 GM in SODIUM CHLORIDE 0.9% 100 ML IV ×2 (09:24→16:50)
[2020-02-07] MEDS: NYSTATIN POWDER 15GM 1 APPLIC TOP ×2 (09:25→21:35)
[2020-02-07 10:07] LABS: Adenovirus Not Detected (Not Detect); Bordetella pertussis Not Detected (Not Detect); Chlamydophila pneumoniae Not Detected (Not Detect); Coronavirus 229E Not Detected (Not Detect); Coronavirus HKU1 Not Detected (Not Detect); Coronavirus NL 63 Not Detected (Not Detect); Coronavirus OC43 Not Detected (Not Detect); Human Metapneumovirus Not Detected (Not Detect); Human Rhinovirus/Enterovirus Not Detected (Not Detect); Influenza A Not Detected (Not Detect); Influenza B Not Detected (Not Detect); Mycoplasma pneumoniae Not Detected (Not Detect); Parainfluenza Virus 1 Not Detected (Not Detect); Parainfluenza Virus 2 Not Detected (Not Detect); Parainfluenza Virus 3 Not Detected (Not Detect); Parainfluenza Virus 4 Not Detected (Not Detect); Respiratory Syncytial Virus Not Detected (Not Detect)
[2020-02-07] MEDS: predniSONE 1 MG TABLET 4 MG PO (11:15)
--- NOTE | 2020-02-07 12:11 | P.PN_ITS ---
Subjective Subjective Date Patient Seen: 02/07/20 Time Patient Seen: 08:15 Interval history: Mary Nielsen is an 80-year-old female with chronic respiratory failure, atrial fibrillation, congestive heart failure, 2 morbid obesity who fell injured her back, she likely had a delayed response some morphine and presented with acute on chronic hypercarbic respiratory failure and a severe respiratory acidosis. Her blood gases markedly improved, but slightly alkalotic this morning and her pCO2 level is 41, much improved from greater than 130 on admission. She did not have a leukocytosis but did have evidence of pneumonia on x-ray imaging, she also had an elevated procalcitonin. Her troponin also continues to rise but she has no evidence of ischemia on EKG and is only mildly elevated at 0.093. Patient was started on Unasyn for a probable pneumonia likely secondary to her intubation. Respiratory panel was negative this morning. Will keep the patient intubated for today an attempt to extubate tomorrow. Exam Vital Signs (past 8 hours): - 02/07/20 04:15 02/07/20 04:16 02/07/20 04:26 Temperature Pulse Rate 104 H 103 H 104 H Respiratory Rate 16 22 17 Blood Pressure 89/55 L 90/53 L 84/52 L Pulse Oximetry 97 97 97 02/07/20 04:27 02/07/20 04:30 02/07/20 04:40 Temperature Pulse Rate 104 H 102 H 101 H Respiratory Rate 15 16 19 Blood Pressure 95/52 L 85/52 L 99/51 L Pulse Oximetry 97 97 97 02/07/20 04:45 02/07/20 05:00 02/07/20 05:15 Temperature Pulse Rate 106 H 99 H 106 H Respiratory Rate 16 16 16 Blood Pressure 95/53 L 105/56 L 86/53 L Pulse Oximetry 96 97 96 02/07/20 05:30 02/07/20 05:45 02/07/20 06:00 Temperature Pulse Rate 101 H 98 H 105 H Respiratory Rate 19 17 13 Blood Pressure 94/62 113/57 L 94/51 L Pulse Oximetry 97 96 95 02/07/20 06:15 02/07/20 06:30 02/07/20 06:45 Temperature 97.8 F Pulse Rate 105 H 100 H 108 H Respiratory Rate 17 12 9 L Blood Pressure 105/51 L 97/56 L 81/51 L Pulse Oximetry 96 96 96 02/07/20 06:46 02/07/20 06:51 02/07/20 06:53 Temperature Pulse Rate 101 H 101 H 100 H Respiratory Rate 16 16 12 Blood Pressure 82/50 L 89/50 L Pulse Oximetry 96 96 96 02/07/20 06:54 02/07/20 06:59 02/07/20 07:00 Temperature 97.8 F Pulse Rate 100 H 100 H 103 H Respiratory Rate 7 L 19 20 Blood Pressure 88/52 L 101/68 106/65 Pulse Oximetry 96 96 95 02/07/20 07:01 02/07/20 08:00 02/07/20 09:00 Temperature 98 F 98.2 F Pulse Rate 109 H 102 H 102 H Respiratory Rate 20 17 17 Blood Pressure 106/65 100/59 L 95/54 L Pulse Oximetry 96 93 94 02/07/20 10:00 02/07/20 11:00 Temperature 98.3 F Pulse Rate 93 H 102 H Respiratory Rate 30 H 16 Blood Pressure 98/53 L 105/59 L Pulse Oximetry 94 92 Fraction of Inspired Oxygen 30 Oxygen Delivery Method Mechanical Ventilation Oxygen Flow Rate 0 Narrative Exam Narrative: Gen: Sedated female lying in bed able to open eyes HEENT: Normocephalic atraumatic, patient is intubated, eyes are closed she is able to blink to respond to voice Lungs: Decreased breath sounds, no crackles rhonchi or wheezes Cardiac exam: Regular rate and rhythm, normal S1-S2 Abdomen: Obese soft nontender, no appreciable hepatosplenomegaly Extremities: 1 to 2+ pitting edema bilaterally Left foot with dressing in place. Neuro exam not obtained as the patient is sedated somewhat responsive but not fully Objective Labs Result Diagrams: 02/07/20 05:00 02/07/20 05:00 Labs: Laboratory Results - last 24 hr 02/06/20 02/06/20 02/06/20 13:41 13:50 15:00 WBC 11.0 D RBC 2.85 L Hgb 8.8 L Hct 29.5 L MCV 103.4 H MCH 31.0 MCHC 30.0 RDW 17.0 H Plt Count 224 Neut % (Auto) 91.6 H Lymph % (Auto) 2.2 L [place] % (Auto) 5.8 Eos % (Auto) 0.0 L Baso % (Auto) 0.4 Neut # (Auto) 61504 H Lymph # (Auto) 200 L [place] # (Auto) 600 Eos # (Auto) 0 Baso # (Auto) 0 ABG pH 6.94 L* ABG pCO2 > 130.0 H* ABG pO2 102 H ABG HCO3 ABG Total CO2 ABG O2 Saturation ABG Base Excess FiO2 Sodium Potassium Chloride Carbon Dioxide BUN Creatinine Estimated GFR BUN/Creatinine Ratio Glucose Lactate Calcium Total Bilirubin AST ALT Alkaline Phosphatase Total Creatine Kinase CK-MB (CK-2) CK-MB (CK-2) Rel Index Troponin I NT-Pro-B Natriuret Pep Total Protein Albumin Globulin Albumin/Globulin Ratio Procalcitonin Nasal Screen MRSA (PCR) Chlamy pneumoniae PCR Adenovirus (PCR) B.parapertussis DNA PCR Coronavirus OC43 (PCR) Coronavirus HKU1 (PCR) Coronavirus 229E (PCR) COVID-19 PCR Negative Coronavirus NL63 (PCR) Human Metapneumovir PCR Influenza Type A (PCR) Influenza Type B (PCR) M. pneumoniae (PCR) Parainfluenza 1 (PCR) Parainfluenza 2 (PCR) Parainfluenza 3 (PCR) Parainfluenza 4 (PCR) RSV (PCR) Entero/Rhino (PCR) 02/06/20 02/06/20 02/06/20 15:00 15:00 15:48 WBC RBC Hgb Hct MCV MCH MCHC RDW Plt Count Neut % (Auto) Lymph % (Auto) [place] % (Auto) Eos % (Auto) Baso % (Auto) Neut # (Auto) Lymph # (Auto) [place] # (Auto) Eos # (Auto) Baso # (Auto) ABG pH 7.31 L ABG pCO2 67.8 H* ABG pO2 118 H ABG HCO3 34 H ABG Total CO2 36 H ABG O2 Saturation 98 ABG Base Excess 8.0 H FiO2 0.50 Sodium 134 L Potassium 4.5 Chloride 96 L Carbon Dioxide 38 H BUN 15 Creatinine 0.78 Estimated GFR > 60.0 BUN/Creatinine Ratio 19.2 Glucose 98 Lactate 1.0 Calcium 9.3 Total Bilirubin 0.8 AST 119 H ALT 23 Alkaline Phosphatase 149 H Total Creatine Kinase 23 L CK-MB (CK-2) TNP CK-MB (CK-2) Rel Index TNP Troponin I 0.056 H NT-Pro-B Natriuret Pep 4530 H Total Protein 6.2 L Albumin 3.4 L Globulin 2.8 Albumin/Globulin Ratio 1.2 Procalcitonin Nasal Screen MRSA (PCR) Chlamy pneumoniae PCR Adenovirus (PCR) B.parapertussis DNA PCR Coronavirus OC43 (PCR) Coronavirus HKU1 (PCR) Coronavirus 229E (PCR) COVID-19 PCR Coronavirus NL63 (PCR) Human Metapneumovir PCR Influenza Type A (PCR) Influenza Type B (PCR) M. pneumoniae (PCR) Parainfluenza 1 (PCR) Parainfluenza 2 (PCR) Parainfluenza 3 (PCR) Parainfluenza 4 (PCR) RSV (PCR) Entero/Rhino (PCR) 02/06/20 02/07/20 02/07/20 17:45 05:00 05:00 WBC 6.4 RBC 2.54 L Hgb 7.9 L Hct 25.1 L MCV 98.7 D MCH 31.1 MCHC 31.5 RDW 17.6 H Plt Count 213 Neut % (Auto) 77.2 H Lymph % (Auto) 10.7 L [place] % (Auto) 11.5 Eos % (Auto) 0.3 L Baso % (Auto) 0.3 Neut # (Auto) 4900 Lymph # (Auto) 700 L [place] # (Auto) 700 Eos # (Auto) 0 Baso # (Auto) 0 ABG pH ABG pCO2 ABG pO2 ABG HCO3 ABG Total CO2 ABG O2 Saturation ABG Base Excess FiO2 Sodium 133 L Potassium 3.9 Chloride 96 L Carbon Dioxide 35 H BUN 22 H Creatinine 0.84 Estimated GFR > 60.0 BUN/Creatinine Ratio 26.2 H Glucose 92 Lactate Calcium 9.2 Total Bilirubin 0.6 AST 70 H ALT 20 Alkaline Phosphatase 119 Total Creatine Kinase CK-MB (CK-2) CK-MB (CK-2) Rel Index Troponin I 0.093 H NT-Pro-B Natriuret Pep 3140 H Total Protein 5.5 L Albumin 3.0 L Globulin 2.5 Albumin/Globulin Ratio 1.2 Procalcitonin Nasal Screen MRSA (PCR) Positive for mrsa H Chlamy pneumoniae PCR Adenovirus (PCR) B.parapertussis DNA PCR Coronavirus OC43 (PCR) Coronavirus HKU1 (PCR) Coronavirus 229E (PCR) COVID-19 PCR Coronavirus NL63 (PCR) Human Metapneumovir PCR Influenza Type A (PCR) Influenza Type B (PCR) M. pneumoniae (PCR) Parainfluenza 1 (PCR) Parainfluenza 2 (PCR) Parainfluenza 3 (PCR) Parainfluenza 4 (PCR) RSV (PCR) Entero/Rhino (PCR) 02/07/20 02/07/20 02/07/20 05:00 05:58 08:16 WBC RBC Hgb Hct MCV MCH MCHC RDW Plt Count Neut % (Auto) Lymph % (Auto) [place] % (Auto) Eos % (Auto) Baso % (Auto) Neut # (Auto) Lymph # (Auto) [place] # (Auto) Eos # (Auto) Baso # (Auto) ABG pH 7.55 H ABG pCO2 41.1 ABG pO2 72 L ABG HCO3 36 H ABG Total CO2 37 H ABG O2 Saturation 96 ABG Base Excess 13.0 H FiO2 30 Sodium Potassium Chloride Carbon Dioxide BUN Creatinine Estimated GFR BUN/Creatinine Ratio Glucose Lactate Calcium Total Bilirubin AST ALT Alkaline Phosphatase Total Creatine Kinase CK-MB (CK-2) CK-MB (CK-2) Rel Index Troponin I NT-Pro-B Natriuret Pep Total Protein Albumin Globulin Albumin/Globulin Ratio Procalcitonin 5.41 H Nasal Screen MRSA (PCR) Chlamy pneumoniae PCR Not detected Adenovirus (PCR) Not detected B.parapertussis DNA PCR Not detected Coronavirus OC43 (PCR) Not detected Coronavirus HKU1 (PCR) Not detected Coronavirus 229E (PCR) Not detected COVID-19 PCR Coronavirus NL63 (PCR) Not detected Human Metapneumovir PCR Not detected Influenza Type A (PCR) Not detected Influenza Type B (PCR) Not detected M. pneumoniae (PCR) Not detected Parainfluenza 1 (PCR) Not detected Parainfluenza 2 (PCR) Not detected Parainfluenza 3 (PCR) Not detected Parainfluenza 4 (PCR) Not detected RSV (PCR) Not detected Entero/Rhino (PCR) Not detected Assessment & Plan Assessment & Plan narrative: 1. 80-year-old female admitted to the hospital with acute hypoxic hypercapnic respiratory failure -patient with chronic respiratory failure, she presents with acute on chronic respiratory failure following administration of morphine. -initial pH 6.94, pCO2 >130, with a PO2 of 102. Now improved after patient was intubated in the emergency department -patient developed hypotension related to propofol. propofol was discontinued, patient was placed on Levophed, she continues on Versed and fentanyl. She is still on minimal levophed today. -by report patient has delayed response to morphine and has been intubated multiple times in the past -patient has known obstructive sleep apnea and uses trilogy/BiPAP at home -chest x-ray showing possible pneumonia, given procalcitonin elevated today and intubation, started on unasyn for presumed aspiration event. -will remain intubated today, anticipate spontaneous breathing trials starting tomorrow. 2. Chronic congestive heart failure with preserved ejection fraction -echocardiogram July 2019 reveals a normal left ventricular function and normal right ventricular function -patient has an elevated proBNP of 4530 -she likely has chronic diastolic heart failure -will hold IV fluids at this time -resume coreg today. -hold lasix today. 3 morbid obesity -patient's obesity likely to impact her respiratory failure, this likely exacerbates her hypoventilation leading to significant respiratory failure with drug that suppress her respiratory drive -given her chronic respiratory failure on chronic oxygen and obstructive apnea her weight is likely contributing to recurrent episodes of respiratory briana lure associated with morphine narcotics -once patient is extubated will ask for nutrition, to discuss dietary planning 4. Chronic atrial fibrillation -patient is on Eliquis -Coreg to restart today given afib, continue at half home dosing 3.125 mg BID. 5. History of C diff -patient previously was on oral vancomycin -will continue for now as she was seemingly restarted at prior facility. 6. GERD -given history of C difficile will hold PPI -will use H2 kiya instead given association of PPIs with C difficile 7. Anemia -, chronic -continue iron when she is able to take oral medications 8. COPD -continue budesonide full med oral -continue Advair 9. Gout -resume meds when able to take p.o. 10. Back pain, hematoma, following -will continue to monitor closely 11. elevated troponin - continue to follow until downtrending. suspect related to hypotension during her episode of acute respiratory failure. Patient does have a surrogate decision maker who is her daughter. She remains a full code at this time. Patient will be placed on DVT prophylaxis. IV fluids will be held given her history of heart failure I spent 35 minutes providing critical care management this patient. This excludes time spent in performing separately billed procedures. COVID-19 COVID-19 status: Negative
[2020-02-07] MEDS: carvediloL 3.125 MG TABLET PO ×2 (12:58→21:36)
[2020-02-07] MEDS: FAMOTIDINE 20 MG/50 ML PIGGYBACK 200 MG IV ×2 (13:01→21:19)
[2020-02-07 13:40] LABS: Troponin I 0.083 ng/mL (0.01-0.034)
[2020-02-07] MEDS: MIDAZOLAM 50 MG in DEXTROSE 5% IN WATER 250 ML 33.41 ML IV ×2 (14:08→21:19)
[2020-02-07] MEDS: fentaNYL 1,000 MCG in DEXTROSE 5% IN WATER 250 ML 34.695 ML IV ×2 (14:09→21:19)
[2020-02-07 14:23] LABS: Magnesium 1.4 mg/dL (1.6-2.3)
--- NOTE | 2020-02-07 14:53 | PC.NURSE ---
PT ABLE TO BE WEANED OFF LEVOPHED THIS SHIFT- PRESENTLY HER FENTANYL/VERSED GTTS CONTINUE WITHOUT PROBLEM - PLEASE REFER TO EMAR- CONTINUED BILAT WRIST RESTRAINTS WITH CURRENT ORDER - UPDATE TO SONPARUL OVER THE TELEPHONE- CVL WITH DRESSING CHANGE THIS SHIFT AND BATHED AND TURNED Q2H- PRESENT RASS IS -1 TO -2 ROSALIE PATENT WITH ONLY 100CC UOP- UPDATE TO
[2020-02-07] MEDS: MAGNESIUM SULFATE 2 GM/50 ML PIGGYBACK IV (15:36)
--- NOTE | 2020-02-07 15:48 | CM.DANOTE ---
DCP/Assessment: Reviewed chart. Patient is a 80yr old female admitted to [facility] with respiratory failure. PCP listed is Josue Menchaca. Primary payor 1)Medicare 2) for Life. Reviewed chart. Patient currently intubated and no family at bedside. P: CM team to follow up with patient after patient extubated. D/C needs unknown at this time. JACKELIN Hyatt Discharge Planning/Care Management CM Discharge Assessment Start: 02/07/20 15:41 Freq: Status: Active Protocol: Document 02/07/20 15:41 KJS (Rec: 02/07/20 15:48 KJS [id number]) Discharge Planning Assessment Assigned Napper Runner JACKELIN Hyatt Contact Information Karlo Nielsen (son) ph# [phone] Advance Directives? Yes History Provided By Medical Record Household Members none Facility Name Admitted From: Other Is patient alert and oriented? No: Currently on vent. Review Status In Process Next Review Type Continued Stay Review
[2020-02-07] MEDS: VANCOMYCIN 500 MG VIAL 125 MG TUBE (17:39)
--- NOTE | 2020-02-07 18:44 | PC.NURSE ---
Addendum entered by Pam Davis R.N. 02/07/20 22:20: Post 250 bolus BP 96/52 with MAP of 71 Addendum entered by Pam Davis R.N. 02/07/20 22:08: 2200 Notified Hospitalist of BP 87/51 MAP of 57, new orders to administer 250 bolus to increase MAP. Bolus infusing at this time, will continue to monitor. Original Note: Evening shift note: Pt currently on fentanyl and versed gtts for sedation without problems, refer to emar. Bilater wrist restraints continued with current orders, left message with daughter Db to update on current status. CVL dressing CDI, changed during dayshift. Pt repositioned Q2, pt tolerating well, current RASS is -2, davalos catheter is patent with clear, yellow urine, limited output of 75cc, provider updated. BP is soft 87/51 with MAP of 63, provider aware, no new orders. Bed low and locked, will continue to treat and monitor as ordered.
[2020-02-07] MEDS: SODIUM CHLORIDE 0.9% 250 ML 500 ML IV (22:29)
[2020-02-07] MEDS: ALBUTEROL/IPRATROPIUM 3 ML AMPUL INH (23:18)
[2020-02-07] MEDS: BUDESONIDE 0.5 MG/2 ML NEB INH (23:18)
[2020-02-08] VITALS (66 sets, daily range): BP systolic 77–133; BP diastolic 46–78; PULSE 61–119; RESP 11–31; TEMP 36.2–36.7; O2SAT 90–100; BMI 51.1
[2020-02-08] MEDS: AMPICILLIN/SULBACTAM 3 GM 3 GM in SODIUM CHLORIDE 0.9% 100 ML IV ×3 (00:53→15:59)
[2020-02-08] MEDS: VANCOMYCIN 500 MG VIAL 125 MG TUBE ×4 (00:53→18:52)
--- NOTE | 2020-02-08 03:02 | PC.NURSE ---
Addendum entered by Toyin Aguilar R.N. 02/08/20 05:51: BPs continue to be soft with MAP around 60. Norepinephrine infusion restarted at 5 mcg/min, titrated down to 3 mcg/min. BP currently 89/50, MAP 65. Fentanyl currently at 0.6 mcg/kg/hr and Versed at 0.02 mg/kg/hr. Patient resting comfortably in bed, FLACC 0. Rass -2 still. Bilateral wrist restraints remain in place, with new/current order received. See restraint charting. [place] cath remains patent with clear, yellow urine draining. Patient has been turned and repositioned every 2 hours to prevent skin breakdown. Call light in reach. Bed locked and low. Will continue to monitor patient closely. Original Note: table games shift manager note: Patient's sedation titrated down throughout shift. Despite this, blood pressure continues to drop. YAMILETH West notified at 0300 regarding BP reading 77/47 with map of 57. Order received for 250 mL NS bolus x1. Patient remains comfortable in bed. Rass continues to be -2 despite sedation titration.
[2020-02-08] MEDS: SODIUM CHLORIDE 0.9% 250 ML 500 ML IV (03:13)
[2020-02-08 04:19] LABS: Add Manual Diff / Slide Review NO; Basophils Absolute Auto 0 /uL (0-100); Basophils Percent Auto 0.6 % (0-2); Eosinophils Absolute Auto 200 /uL (0-450); Eosinophils Percent Auto 3.7 % (2-4); Hemoglobin 7.3 g/dL (12.0-16.0); Lymphocytes Absolute Auto 800 /uL (1100-4500); Lymphocytes Percent Auto 16.4 % (25-40); Mean Corpuscular HGB Conc 32.2 % (30-36); Mean Corpuscular Hemoglobin 31.1 PG (26-34); Mean Corpuscular Volume 96.6 fL (80-100); Monocytes Absolute Auto 600 /uL (0-900); Monocytes Percent Auto 11.3 % (3-14); Neutrophils Absolute Auto 3400 /uL (1500-7000); Platelet Count 202 X10^3/uL (150-400); Red Blood Cell Count 2.35 X10^6/uL (4.0-5.2); Red Cell Distribution Width 17.6 % (11.6-14.8)
[2020-02-08 04:20] LABS: Hematocrit 22.7 % (36-46)
[2020-02-08] MEDS: NOREPINEPHRINE 4 MG in DEXTROSE 5% IN WATER 250 ML 19.05 ML IV (04:20)
[2020-02-08 04:22] LABS: BUN Creatinine Ratio 29.1 (6-22); Blood Urea Nitrogen 25 mg/dL (7-17); Calcium 8.6 mg/dL (8.4-10.2); Carbon Dioxide 38 mmol/L (22-32); Chloride 95 mmol/L (98-107); Estimated Glomerular Filt Rate > 60.0 mL/min (>60); Glucose 86 mg/dL (80-110); HEMOLYSIS 16 (0-50); Magnesium 1.8 mg/dL (1.6-2.3); Potassium 3.5 mmol/L (3.4-5.1); Sodium 131 mmol/L (137-145)
[2020-02-08 04:40] LABS: Procalcitonin 4.34 ng/mL (<0.5)
[2020-02-08] MEDS: POTASSIUM CHLORIDE 40 MEQ in SODIUM CHLORIDE 0.9% 500 ML 130 ML IV (05:10)
[2020-02-08 05:29] LABS: PCO2 ABG 43.6 mmHg (35-45); pH ABG 7.49 (7.35-7.45)
[2020-02-08 05:30] LABS: Fractionated Inspired Oxygen 30; HCO3 ABG 34 mmol/L (22-26); Oxygen Saturation ABG 94 % (95-100); PO2 ABG 67 mmHg (80-100); TCO2 ABG 35 mmol/L (21-31)
[2020-02-08] MEDS: MAGNESIUM SULFATE 1 GM/25 ML PIGGYBACK IV (05:38)
[2020-02-08] MEDS: ALBUTEROL 2.5 MG/3 ML NEB (ADULT) INH (07:19)
[2020-02-08] MEDS: BUDESONIDE 0.5 MG/2 ML NEB INH ×2 (07:19→20:05)
[2020-02-08] MEDS: fentaNYL 1,000 MCG in DEXTROSE 5% IN WATER 250 ML 20.817 ML IV (07:23)
[2020-02-08] MEDS: FERROUS SULFATE 325 MG TABLET PO (08:54)
[2020-02-08] MEDS: FLUoxetine 10 MG CAPSULE PO (08:55)
[2020-02-08] MEDS: predniSONE 1 MG TABLET 4 MG PO (10:57)
[2020-02-08] MEDS: NYSTATIN POWDER 15GM 1 APPLIC TOP ×2 (10:58→20:17)
[2020-02-08] MEDS: ALBUTEROL/IPRATROPIUM 3 ML AMPUL INH ×4 (11:15→23:19)
--- NOTE | 2020-02-08 12:26 | PM.PN.1 ---
Subjective Subjective Date Patient Seen: 02/08/20 Time Patient Seen: 12:26 Interval history: Mary Nielsen is an 80-year-old female with chronic respiratory failure, atrial fibrillation, congestive heart failure, 2 morbid obesity who fell injured her back, she likely had a delayed response some morphine and presented with acute on chronic hypercarbic respiratory failure and a severe respiratory acidosis. She was started on Unasyn yesterday for possible pneumonia. Procalcitonin has improved today. This morning her hemoglobin was 7.3 down from 7.9 on admission. She was also on a slightly increased dose of Levophed this morning. Did transfuse 1 unit PRBC. Started sedation trials this afternoon, but currently unable to pass a breathing trial. Will continue sedation hold with breathing trial, anticipate that she will likely not be extubated today, more likely will resume sedation vacations and breathing trials tomorrow. Exam Vital Signs (past 8 hours): - 02/08/20 05:00 02/08/20 05:30 02/08/20 06:16 Temperature 97.5 F L Pulse Rate 61 74 67 Respiratory Rate 14 12 13 Blood Pressure 133/78 93/52 L 89/50 L Pulse Oximetry 95 93 02/08/20 07:00 02/08/20 08:00 02/08/20 08:46 Temperature 97.8 F Pulse Rate 77 74 89 Respiratory Rate 12 12 Blood Pressure 107/55 L 98/54 L 103/59 L Pulse Oximetry 95 94 02/08/20 08:56 02/08/20 09:00 02/08/20 09:14 Temperature 97.2 F L 97.9 F Pulse Rate 84 85 89 Respiratory Rate 12 12 13 Blood Pressure 99/51 L 97/53 L 93/58 L Pulse Oximetry 94 02/08/20 10:09 02/08/20 11:00 02/08/20 11:29 Temperature Pulse Rate 83 83 89 Respiratory Rate 12 12 30 H Blood Pressure 97/53 L 90/53 L 96/51 L Pulse Oximetry 95 97 94 02/08/20 12:00 Temperature Pulse Rate 94 H Respiratory Rate 12 Blood Pressure 90/50 L Pulse Oximetry 96 Fraction of Inspired Oxygen 30 Oxygen Delivery Method Mechanical Ventilation Oxygen Flow Rate 0 Narrative Exam Narrative: Gen: Sedated female lying in bed able to open eyes, nods appropriately to questions. HEENT: Normocephalic atraumatic, patient is intubated, eyes are closed she is able to blink to respond to voice Lungs: Decreased breath sounds, no crackles rhonchi or wheezes Cardiac exam: Regular rate and rhythm, normal S1-S2 Abdomen: Obese soft nontender, no appreciable hepatosplenomegaly Extremities: 1 to 2+ pitting edema bilaterally Left foot with dressing in place. Neuro: moves extremities equally, follows commands, nods to questions. Objective Labs Result Diagrams: 02/08/20 04:00 02/08/20 04:00 Labs: Laboratory Results - last 24 hr 02/07/20 02/07/20 02/08/20 13:10 13:10 04:00 WBC 5.0 RBC 2.35 L Hgb 7.3 L Hct 22.7 L MCV 96.6 MCH 31.1 MCHC 32.2 RDW 17.6 H Plt Count 202 Neut % (Auto) 68.0 Lymph % (Auto) 16.4 L [place] % (Auto) 11.3 Eos % (Auto) 3.7 Baso % (Auto) 0.6 Neut # (Auto) 3400 Lymph # (Auto) 800 L [place] # (Auto) 600 Eos # (Auto) 200 Baso # (Auto) 0 ABG pH ABG pCO2 ABG pO2 ABG HCO3 ABG Total CO2 ABG O2 Saturation ABG Base Excess FiO2 Sodium Potassium Chloride Carbon Dioxide BUN Creatinine Estimated GFR BUN/Creatinine Ratio Glucose Calcium Magnesium 1.4 L Troponin I 0.083 H Procalcitonin Blood Type Antibody Screen Crossmatch 02/08/20 02/08/20 02/08/20 04:00 04:00 05:00 WBC RBC Hgb Hct MCV MCH MCHC RDW Plt Count Neut % (Auto) Lymph % (Auto) [place] % (Auto) Eos % (Auto) Baso % (Auto) Neut # (Auto) Lymph # (Auto) [place] # (Auto) Eos # (Auto) Baso # (Auto) ABG pH 7.49 H ABG pCO2 43.6 ABG pO2 67 L ABG HCO3 34 H ABG Total CO2 35 H ABG O2 Saturation 94 L ABG Base Excess 11.0 H FiO2 30 Sodium 131 L Potassium 3.5 Chloride 95 L Carbon Dioxide 38 H BUN 25 H Creatinine 0.86 Estimated GFR > 60.0 BUN/Creatinine Ratio 29.1 H Glucose 86 Calcium 8.6 Magnesium 1.8 Troponin I Procalcitonin 4.34 H Blood Type Antibody Screen Crossmatch 02/08/20 05:10 WBC RBC Hgb Hct MCV MCH MCHC RDW Plt Count Neut % (Auto) Lymph % (Auto) [place] % (Auto) Eos % (Auto) Baso % (Auto) Neut # (Auto) Lymph # (Auto) [place] # (Auto) Eos # (Auto) Baso # (Auto) ABG pH ABG pCO2 ABG pO2 ABG HCO3 ABG Total CO2 ABG O2 Saturation ABG Base Excess FiO2 Sodium Potassium Chloride Carbon Dioxide BUN Creatinine Estimated GFR BUN/Creatinine Ratio Glucose Calcium Magnesium Troponin I Procalcitonin Blood Type A Positive Antibody Screen Negative Crossmatch See Detail Assessment & Plan Assessment & Plan narrative: 1. 80-year-old female admitted to the hospital with acute hypoxic hypercapnic respiratory failure -patient with chronic respiratory failure, she presented with acute on chronic respiratory failure following administration of morphine in the ER for hematoma -initial pH 6.94, pCO2 >130, with a PO2 of 102. Now improved after patient was intubated in the emergency department -patient developed hypotension related to propofol. propofol was discontinued, patient was placed on Levophed, she continues on Versed and fentanyl. She is still on minimal levophed today. -by report patient has delayed response to morphine and has been intubated multiple times in the past -patient has known obstructive sleep apnea and uses trilogy/BiPAP at home -chest x-ray showing possible pneumonia, given procalcitonin elevated and intubation, started on unasyn for presumed aspiration event. Procalcitonin now improving today. Respiratory panel negative. -continue sedation vacations and spontaneous breathing trials daily, anticipate extubation tomorrow vs less likely later today. 2. Chronic congestive heart failure with preserved ejection fraction -echocardiogram July 2019 reveals a normal left ventricular function and normal right ventricular function -patient has an elevated proBNP of 4530 -she likely has chronic diastolic heart failure -will hold IV fluids at this time -resume coreg at half dosing for afib control. -hold lasix today. 3. acute blood loss anemia on chronic anemia. - secondary to hematoma - d/c lovenox, Hg 7.3 this AM will transfuse 1 U PRBC as her levophed has increased slightly this AM. Continue to monitor h/h. Baseline Hg appears to be upper 8s. 4. morbid obesity -patient's obesity likely to impact her respiratory failure, this likely exacerbates her hypoventilation leading to significant respiratory failure with drug that suppress her respiratory drive -given her chronic respiratory failure on chronic oxygen and obstructive apnea her weight is likely contributing to recurrent episodes of respiratory failure associated with morphine narcotics -once patient is extubated will ask for nutrition, to discuss dietary planning 5. Chronic atrial fibrillation -patient is on Eliquis -Coreg initiated given afib rate in upper 100s, continue at half home dosing 3.125 mg BID. 6. History of C diff -patient previously was on oral vancomycin -will continue for now as she was seemingly restarted at prior facility. 7. GERD -given history of C difficile will hold PPI -will use H2 kiya instead given association of PPIs with C difficile 8. COPD -continue budesonide full med oral -continue Advair 9. Gout -resume meds when able to take p.o. 10. Back pain, hematoma, following -will continue to monitor closely. 8x[address] Hg 7.3 now s/p 1 U PRBC. Lovenox held. -on fentanyl gtt while intubated. 11. elevated troponin, resolved, - continue to follow until downtrending. suspect related to hypotension during her episode of acute respiratory failure. 12. Probable aspiration pneumonia - secondary to intubation for above hypercarbic respiratory failure. Patient does have a surrogate decision maker who is her daughter. She remains a full code at this time. Patient will be placed on DVT prophylaxis. IV fluids will be held given her history of heart failure I spent 40 minutes providing critical care management this patient. This excludes time spent in performing separately billed procedures.
--- NOTE | 2020-02-08 14:55 | PC.NURSE ---
PT REMAINS ON SEDATION VACATION FROM APPROX 1130 AM THIS INCLUDES LEVOPHED BEING OFF - AFIB WITH BBB AND FREQ PVCS- UOP INCREASED THIS SHIFT DID RECEIVE ONE UNIT OF RBC DURING THIS SHIFT
--- NOTE | 2020-02-08 15:48 | DIET.PN ---
Addendum entered by Marilin Gomez 02/09/20 14:44: Formula Glucerna 1.5 Addendum entered by Marilin Gomez 02/08/20 16:03: Recc continuous TF via OG starting at 20mL/h for first 8h increasing to goal of 40mL/h as tolerated c 300mL free water flushes q4h providing 1440kcal (100%), 79g PRO (76%), 729 water in formula and 1800mL (80%) free water flushes. Original Note: Dietary Progress Note Assessment: 80y F with chronic respiratory failure, atrial fibrillation, congestive heart failure, 2 morbid obesity who fell injured her back. She is on Pradaxa and had a significant contusion. Pt given morphine but then returned in acute respiratory failure so was intubated on 02/06/20. Pt referred to nutrition for NPO on ventilator. Pt failed sedation vacation today so putting in place tube feeding reccs as pt has been NPO now 2d. If MAP >60, lactate stable, and pt not on pressors, recc initiating TF. Pt has received nutrition counseling during previous inpatient stays for weight loss counseling. Pt has been between 122-131kg over past year without significant weight loss. HT: 160cm WT: 131kg Adjusted BW:72kg BMI: 51.2 (class 3 obesity) Brandon: 10 high risk for skin breakdown Nutrition Diagnosis: inadequate protein energy intake r/t NPO on ventilator status aeb pt d2 NPO, pt large body habitus requires high protein at baseline, pt failed sedation vacation today. Interventions: Recc continuous TF via OG starting at 20mL/h for first 8h increasing to goal of 40mL/h as tolerated c 300mL free water flushes q4h providing 1440kcal (100%), 79g PRO (76%), 729 water in formula and 1800mL (80%) free water flushes. Diet Order: NPO EER: 1440kcal (20kcal/kg ABW, permissive underfeeding), 104g PRO (2g/kg IBW), 3.2L fluids (25mL/kg) Monitoring/Evaluations: following daily, once diet advances will send appropriate ONS and do dietary counseling on morbid obesity
--- NOTE | 2020-02-08 17:19 | PC.NURSE ---
Evening shift note: Pt was on vacation sedation from 1130 to 1600, pt not tolerating extubation today, remains intubated with settings FiO2 30% PEEP 5 rate 12 tidal volume 350. Continues to be AFIB, BBB and frequent PVC's, with extended pauses, BP soft 90/55 MAP of 70 provider aware. Restraints in place, orders updated at midnight, Levophed paused currently. Pt received 1 unit PRBC during dayshift. Bed low and locked, call light within reach, will continue to treat and monitor as ordered until report is given to oncoming NOC shift nurse.
[2020-02-08] MEDS: LACTATED RINGERS 1,000 ML 100 ML IV (20:15)
[2020-02-08] MEDS: FAMOTIDINE 20 MG/50 ML PIGGYBACK IV (20:16)
[2020-02-08] MEDS: MIDAZOLAM 50 MG in DEXTROSE 5% IN WATER 250 ML 20.046 ML IV (23:48)
[2020-02-08] MEDS: fentaNYL 1,000 MCG in DEXTROSE 5% IN WATER 250 ML 27.756 ML IV (23:55)
[2020-02-09] VITALS (59 sets, daily range): BP systolic 90–165; BP diastolic 51–101; PULSE 67–132; RESP 10–51; TEMP 35.9–36.7; O2SAT 86–100
[2020-02-09] MEDS: VANCOMYCIN 500 MG VIAL 125 MG TUBE ×4 (00:08→18:10)
[2020-02-09] MEDS: AMPICILLIN/SULBACTAM 3 GM 3 GM in SODIUM CHLORIDE 0.9% 100 ML IV ×3 (00:08→16:42)
[2020-02-09 04:57] LABS: Add Manual Diff / Slide Review NO; Basophils Absolute Auto 0 /uL (0-100); Basophils Percent Auto 0.4 % (0-2); Eosinophils Absolute Auto 200 /uL (0-450); Eosinophils Percent Auto 4.6 % (2-4); Hematocrit 25.2 % (36-46); Hemoglobin 8.1 g/dL (12.0-16.0); Lymphocytes Absolute Auto 600 /uL (1100-4500); Lymphocytes Percent Auto 12.3 % (25-40); Mean Corpuscular HGB Conc 32.2 % (30-36); Mean Corpuscular Hemoglobin 30.9 PG (26-34); Mean Corpuscular Volume 95.8 fL (80-100); Monocytes Absolute Auto 500 /uL (0-900); Monocytes Percent Auto 10.8 % (3-14); Neutrophils Absolute Auto 3500 /uL (1500-7000); Neutrophils Percent Auto 71.9 % (50-75); Platelet Count 197 X10^3/uL (150-400); Red Blood Cell Count 2.63 X10^6/uL (4.0-5.2); White Blood Cell Count 4.9 X10^3/uL (4.5-11.0)
[2020-02-09 05:13] LABS: BUN Creatinine Ratio 23.7 (6-22); Blood Urea Nitrogen 18 mg/dL (7-17); Carbon Dioxide 38 mmol/L (22-32); Chloride 96 mmol/L (98-107); Estimated Glomerular Filt Rate > 60.0 mL/min (>60); Glucose 101 mg/dL (80-110); HEMOLYSIS < 15 (0-50); Potassium 4.1 mmol/L (3.4-5.1); Sodium 132 mmol/L (137-145)
--- NOTE | 2020-02-09 05:22 | PC.NURSE ---
Addendum entered by Toyin Aguilar R.N. 02/09/20 05:30: Since increase/restart of sedation, patient has been RASS -2 and more comfortable on vent. This RN attempted to reposition patient this AM, patient woke up trying to pull ET tube out again. Patient reoriented and calmed without needing further sedation titration. Good UOP, VSS. Patient remains in afib, cvr. Will continue to monitor. Original Note: manufacturing shift supervisor note: Patient remains on ventilator, 30% FIO2. At the start of shift, patient restless, thrashing in bed and made several attempts to pull at ET tube. Fentanyl infusion increased at that time. YAMILETH West notified and orders received to restart Versed drip.
[2020-02-09 06:29] LABS: Fractionated Inspired Oxygen 25; HCO3 ABG 36 mmol/L (22-26); Oxygen Saturation ABG 89 % (95-100); PCO2 ABG 58.7 mmHg (35-45); PO2 ABG 58 mmHg (80-100); TCO2 ABG 38 mmol/L (21-31); pH ABG 7.39 (7.35-7.45)
--- NOTE | 2020-02-09 08:00 | DI.RAD.S_ITS ---
PROCEDURE: XR CHEST 1V INDICATIONS: remains intubated TECHNIQUE: One view of the chest was acquired. COMPARISON: [facility], CT, CT LUMBAR SPINE W CON, 02/06/2020, 8:24. [facility], CR, XR CHEST 1V, 02/07/2020, 8:02. FINDINGS: Surgical changes and devices: Endotracheal tube in the mid to lower trachea. Enteric tube coursing into the stomach. The tip is not visualized. Left-sided central venous line with the tip in the upper/middle 3rd of the SVC. Lungs and pleura: Mild right basilar opacity. Small right pleural effusion. No pneumothorax demonstrated. Mediastinum: Mediastinal contours appear unchanged. Heart size appears prominent. Bones and chest wall: No suspicious bony lesions. Prior vertebral plasty not well seen. Overlying soft tissues appear unremarkable. IMPRESSION: Tubes and lines project in the expected location. Small right pleural effusion, unchanged. Mild right basilar atelectasis. Dictated by: Petey Mcclelland M.D. on 02/09/2020 at 8:06 Approved by: Petey Mcclelland M.D. on 02/09/2020 at 8:08
[2020-02-09] MEDS: predniSONE 1 MG TABLET 4 MG PO (08:25)
[2020-02-09] MEDS: NYSTATIN POWDER 15GM 1 APPLIC TOP ×2 (08:26→21:14)
[2020-02-09] MEDS: FLUoxetine 10 MG CAPSULE PO (08:26)
[2020-02-09] MEDS: FERROUS SULFATE 325 MG TABLET PO (08:26)
[2020-02-09] MEDS: carvediloL 3.125 MG TABLET PO (08:27)
[2020-02-09] MEDS: BUDESONIDE 0.5 MG/2 ML NEB INH ×2 (08:37→20:15)
[2020-02-09] MEDS: ALBUTEROL/IPRATROPIUM 3 ML AMPUL INH ×4 (08:38→18:36)
[2020-02-09] MEDS: LACTATED RINGERS 1,000 ML 100 ML IV (09:40)
--- NOTE | 2020-02-09 11:28 | PM.PN.1 ---
Subjective Subjective Date Patient Seen: 02/09/20 Time Patient Seen: 11:30 Interval history: Mary Nielsen is an 80-year-old female with chronic respiratory failure, atrial fibrillation, congestive heart failure, 2 morbid obesity who fell injured her back, she likely had a delayed response some morphine and presented with acute on chronic hypercarbic respiratory failure and a severe respiratory acidosis. She was started on Unasyn for possible aspiration. Procalcitonin has improved, pending results today. Sedation vacation planned for today, if not ready today will start tube feeds. Exam Vital Signs (past 8 hours): - 02/09/20 04:00 02/09/20 05:00 02/09/20 06:00 Temperature 98.0 F Pulse Rate 92 H 91 H 90 Respiratory Rate 12 12 14 Blood Pressure 98/54 L 95/75 99/54 L Pulse Oximetry 94 95 93 02/09/20 06:45 02/09/20 07:00 02/09/20 07:40 Temperature 96.6 F L Pulse Rate 92 H 83 88 Respiratory Rate 12 12 12 Blood Pressure 91/54 L Pulse Oximetry 94 95 94 02/09/20 08:00 02/09/20 08:27 02/09/20 08:45 Temperature 96.8 F L Pulse Rate 94 H 91 H 98 H Respiratory Rate 12 14 Blood Pressure 105/55 L 105/55 L Pulse Oximetry 91 100 02/09/20 08:49 02/09/20 09:00 02/09/20 09:25 Temperature Pulse Rate 96 H Respiratory Rate 13 Blood Pressure 98/55 L Pulse Oximetry 91 99 91 02/09/20 10:00 Temperature 97.6 F Pulse Rate 104 H Respiratory Rate 12 Blood Pressure 105/54 L Pulse Oximetry 100 Fraction of Inspired Oxygen 37 Oxygen Delivery Method Mechanical Ventilation Oxygen Flow Rate 30 Narrative Exam Narrative: Gen: Sedated female lying in bed able to open eyes, nods appropriately to questions. HEENT: Normocephalic atraumatic, patient is intubated, eyes are closed she is able to blink to respond to voice Lungs: Decreased breath sounds, no crackles rhonchi or wheezes Cardiac exam: Regular rate and rhythm, normal S1-S2 Abdomen: Obese soft nontender, no appreciable hepatosplenomegaly Extremities: 1 to 2+ pitting edema bilaterally Left foot with dressing in place. Neuro: moves extremities equally, follows commands, nods to questions. Objective Labs Result Diagrams: 02/09/20 04:48 02/09/20 04:48 Labs: Laboratory Results - last 24 hr 02/09/20 02/09/20 02/09/20 04:48 04:48 06:13 WBC 4.9 RBC 2.63 L Hgb 8.1 L Hct 25.2 L MCV 95.8 MCH 30.9 MCHC 32.2 RDW 17.0 H Plt Count 197 Neut % (Auto) 71.9 Lymph % (Auto) 12.3 L [place] % (Auto) 10.8 Eos % (Auto) 4.6 H Baso % (Auto) 0.4 Neut # (Auto) 3500 Lymph # (Auto) 600 L [place] # (Auto) 500 Eos # (Auto) 200 Baso # (Auto) 0 ABG pH 7.39 ABG pCO2 58.7 H ABG pO2 58 L ABG HCO3 36 H ABG Total CO2 38 H ABG O2 Saturation 89 L ABG Base Excess 11.0 H FiO2 25 Sodium 132 L Potassium 4.1 Chloride 96 L Carbon Dioxide 38 H BUN 18 H Creatinine 0.76 Estimated GFR > 60.0 BUN/Creatinine Ratio 23.7 H Glucose 101 Calcium 9.0 Magnesium 2.0 Assessment & Plan Assessment & Plan narrative: 80-year-old female admitted to the hospital with acute hypoxic hypercapnic respiratory failure 1. Acute on chronic hypoxemic and hypercapnic respiratory failure, improved -patient with chronic respiratory failure, she presented with acute on chronic respiratory failure following administration of morphine in the ER for hematoma -initial pH 6.94, pCO2 >130, with a PO2 of 102. Now improved. -patient developed hypotension related to propofol. propofol was discontinued. Still on intermittent levophed with soft pressures given sedation. she continues on Versed and fentanyl and daily sedation vacations. -by report patient has delayed response to morphine and has been intubated multiple times in the past -patient has known obstructive sleep apnea and uses trilogy/BiPAP at home -chest x-ray showing possible pneumonia, given procalcitonin elevated and intubation, started on unasyn for presumed aspiration event. Procalcitonin now improving. Respiratory panel negative. -continue sedation vacations and spontaneous breathing trials daily. Having difficulty weaning from sedation, consider discontinuing sedation earlier in AM (3-4 am) tomorrow if she is still intubated. Pharmacy possibly to obtain precedex although this has not been possible in the past. -start tube feeds today if unable to extubate 2. Chronic congestive heart failure with preserved ejection fraction -echocardiogram July 2019 reveals a normal left ventricular function and normal right ventricular function -patient has an elevated proBNP of 4530 -she likely has chronic diastolic heart failure, no volume overload apparent at this time. -will hold IV fluids at this time -resume coreg at half dosing for afib control. -hold lasix today, can likely resume once extubated. 3. acute blood loss anemia on chronic anemia. - secondary to hematoma - d/c lovenox, Hg 7.3 yesterday s/p 1 U PRBC with improvement to 8.1. Continue to monitor as her baseline Hg appears to be between 8 and 9. 4. morbid obesity -patient's obesity likely to impact her respiratory failure, this likely exacerbates her hypoventilation leading to significant respiratory failure with drug that suppress her respiratory drive -given her chronic respiratory failure on chronic oxygen and obstructive apnea her weight is likely contributing to recurrent episodes of respiratory failure associated with morphine narcotics -once patient is extubated will ask for nutrition, to discuss dietary planning 5. Chronic atrial fibrillation -patient is on Eliquis -Coreg initiated given afib rate in upper 100s, continue at half home dosing 3.125 mg BID. 6. History of C diff -patient previously was on oral vancomycin -will continue for now as she was seemingly restarted at prior facility on 02/01, to continue x14 days given this is her 2nd episode. No episodes of diarrhea since admission. 7. GERD -given history of C difficile will hold PPI -will use H2 kiya instead given association of PPIs with C difficile 8. COPD -continue budesonide full med oral -continue Advair 9. Gout -resume meds when able to take p.o. 10. Back pain, hematoma, following -will continue to monitor closely. 8x[address] Hg 7.3 now s/p 1 U PRBC with improvement to 8.1. Lovenox held. -on fentanyl gtt while intubated for pain 11. elevated troponin, resolved, - now downtrending. suspect related to hypotension during her episode of acute respiratory failure. 12. Probable aspiration pneumonia - secondary to intubation for above hypercarbic respiratory failure. Continue unasyn x5 days. Patient does have a surrogate decision maker who is her daughter. She remains a full code at this time. Patient will be placed on DVT prophylaxis. IV fluids will be held given her history of heart failure I spent 40 minutes providing critical care management this patient. This excludes time spent in performing separately billed procedures.
[2020-02-09 12:55] LABS: Procalcitonin 2.39 ng/mL (<0.5)
[2020-02-09 15:19] LABS: pH ABG 7.28 (7.35-7.45)
[2020-02-09 15:20] LABS: HCO3 ABG 35 mmol/L (22-26); PO2 ABG 54 mmHg (80-100); TCO2 ABG 37 mmol/L (21-31)
[2020-02-09 15:23] LABS: Oxygen Saturation ABG 81 % (95-100)
[2020-02-09 15:24] LABS: Fractionated Inspired Oxygen 30
[2020-02-09] MEDS: fentaNYL 100 MCG/2 ML INJ 25 MCG IV ×3 (19:53→23:51)
[2020-02-09] MEDS: FAMOTIDINE 20 MG/50 ML PIGGYBACK 100 MG IV (21:14)
--- NOTE | 2020-02-09 22:29 | PC.NURSE ---
Shift Note: Remains intubated, occasionally agitated but calmed easily with reassurance then with fentanyl 25mcg to good effect. Tube feeding in progress @ 20ml hr with H2O flush per protocol. SCD's removed per pt indication. Will continue to monitor
[2020-02-10] VITALS (64 sets, daily range): BP systolic 92–155; BP diastolic 50–78; PULSE 68–114; RESP 8–29; TEMP 31–37; O2SAT 81–100
[2020-02-10] MEDS: LACTATED RINGERS 1,000 ML 100 ML IV
[2020-02-10] MEDS: AMPICILLIN/SULBACTAM 3 GM 3 GM in SODIUM CHLORIDE 0.9% 100 ML IV ×3 (00:56→16:35)
[2020-02-10] MEDS: VANCOMYCIN 500 MG VIAL 125 MG TUBE ×2 (00:58→05:37)
[2020-02-10] MEDS: fentaNYL 100 MCG/2 ML INJ 25 MCG IV ×4 (02:38→06:34)
[2020-02-10 05:29] LABS: Add Manual Diff / Slide Review NO; Basophils Absolute Auto 0 /uL (0-100); Basophils Percent Auto 0.5 % (0-2); Eosinophils Absolute Auto 200 /uL (0-450); Eosinophils Percent Auto 4.2 % (2-4); Hematocrit 26.5 % (36-46); Hemoglobin 8.4 g/dL (12.0-16.0); Lymphocytes Absolute Auto 600 /uL (1100-4500); Mean Corpuscular HGB Conc 31.7 % (30-36); Mean Corpuscular Hemoglobin 30.5 PG (26-34); Mean Corpuscular Volume 96.3 fL (80-100); Monocytes Absolute Auto 700 /uL (0-900); Monocytes Percent Auto 12.7 % (3-14); Neutrophils Absolute Auto 3900 /uL (1500-7000); Neutrophils Percent Auto 71.6 % (50-75); Platelet Count 221 X10^3/uL (150-400); Red Blood Cell Count 2.75 X10^6/uL (4.0-5.2); Red Cell Distribution Width 17.4 % (11.6-14.8); White Blood Cell Count 5.5 X10^3/uL (4.5-11.0)
[2020-02-10 05:32] LABS: Blood Urea Nitrogen 14 mg/dL (7-17); Calcium 9.2 mg/dL (8.4-10.2); Carbon Dioxide 36 mmol/L (22-32); Chloride 97 mmol/L (98-107); Estimated Glomerular Filt Rate > 60.0 mL/min (>60); Glucose 106 mg/dL (80-110); HEMOLYSIS < 15 (0-50); Magnesium 1.9 mg/dL (1.6-2.3); Potassium 4.3 mmol/L (3.4-5.1); Sodium 132 mmol/L (137-145)
--- NOTE | 2020-02-10 06:15 | PC.NURSE ---
Pt alert throughout the night. Fighting vent at times and trying to pull at lines, resolved with giving Fentanyl as ordered. Pt not tolerating SCDs so removed. Vent settings at 30%, TV 350, rate 12, PEEP 5
[2020-02-10] MEDS: FERROUS SULFATE 325 MG TABLET PO (08:25)
[2020-02-10] MEDS: carvediloL 3.125 MG TABLET PO ×2 (08:25→21:17)
[2020-02-10] MEDS: predniSONE 1 MG TABLET 4 MG PO (08:26)
[2020-02-10] MEDS: NYSTATIN POWDER 15GM 1 APPLIC TOP ×2 (08:26→21:20)
[2020-02-10] MEDS: FLUoxetine 10 MG CAPSULE PO (08:26)
[2020-02-10] MEDS: BUDESONIDE 0.5 MG/2 ML NEB INH ×2 (08:27→19:29)
[2020-02-10] MEDS: ALBUTEROL/IPRATROPIUM 3 ML AMPUL INH ×5 (08:29→22:52)
[2020-02-10 09:02] LABS: HCO3 ABG 35 mmol/L (22-26); Oxygen Saturation ABG 95 % (95-100); PCO2 ABG 59.2 mmHg (35-45); PO2 ABG 82 mmHg (80-100); TCO2 ABG 37 mmol/L (21-31); pH ABG 7.38 (7.35-7.45)
[2020-02-10 09:03] LABS: Fractionated Inspired Oxygen 30
--- NOTE | 2020-02-10 09:36 | PM.PN.1 ---
Subjective Subjective Date Patient Seen: 02/10/20 Interval history: Leyda Nielsen is a 80-year-old female with a past medical history significant for paroxysmal atrial fibrillation on Eliquis, diastolic CHF, chronic hypoxemic and hypercarbic respiratory failure secondary to OHS, JEANIE, COPD and morbid obesity and plaque psoriasis who presented to ED after receiving morphine in the ED earlier in the day for a ground level fall with low back hematoma and back pain with delayed response which resulted in acute hypoxemic and hypercarbic respiratory failure status post intubation. The patient is intubated. ABG with pH 7.38, pCO2 59.2, PO2 82, HC03 35, SpO2 95% on FiO2 0.30. She is awake, alert and following commands. She is currently on a pressure support trial of 10/5 for over an hour and pulling good tidal volumes in the 400s with a respiratory rate 20. Plan for extubation to BiPAP and triology as soon as available. Exam Vital Signs (past 8 hours): - 02/10/20 02:00 02/10/20 02:30 02/10/20 02:44 Temperature Pulse Rate 85 83 90 Respiratory Rate 12 12 20 Blood Pressure 105/54 L 107/51 L 124/62 Pulse Oximetry 96 97 94 02/10/20 02:56 02/10/20 03:00 02/10/20 03:31 Temperature Pulse Rate 99 H 92 H 97 H Respiratory Rate 25 H 13 16 Blood Pressure 136/63 132/63 109/67 Pulse Oximetry 96 96 97 02/10/20 03:42 02/10/20 04:00 02/10/20 04:14 Temperature Pulse Rate 82 82 81 Respiratory Rate 12 12 12 Blood Pressure 108/62 92/53 L Pulse Oximetry 99 98 98 02/10/20 04:16 02/10/20 04:33 02/10/20 05:00 Temperature 97.2 F L Pulse Rate 82 84 Respiratory Rate 12 12 13 Blood Pressure 97/55 L 98/50 L Pulse Oximetry 95 96 97 02/10/20 05:30 02/10/20 05:50 02/10/20 06:00 Temperature Pulse Rate 82 80 68 Respiratory Rate 16 14 12 Blood Pressure 114/54 L 107/53 L 103/55 L Pulse Oximetry 99 100 100 02/10/20 07:00 02/10/20 07:35 02/10/20 08:00 Temperature 97.7 F Pulse Rate 98 H 80 81 Respiratory Rate 16 12 12 Blood Pressure 92/53 L 105/57 L Pulse Oximetry 99 98 98 02/10/20 08:25 02/10/20 08:44 02/10/20 09:00 Temperature 98.6 F Pulse Rate 85 101 H Respiratory Rate 15 Blood Pressure 105/57 L 124/58 L Pulse Oximetry 91 94 Fraction of Inspired Oxygen 36 Oxygen Delivery Method Mechanical Ventilation Oxygen Flow Rate 30 Narrative Exam Narrative: General: Elderly female lying in bed and in no acute distress, well-developed, well-nourished, appropriately interactive HEENT: Normocephalic, atraumatic. External ears without defect. Pupils equal, round, and reactive to light. Anicteric sclerae, moist conjunctivae, and no lid lag. ET and OG tube in place. Neck: Supple with full range of motion. Mild jugular venous distension. No lymphadenopathy or thyromegaly. Cardiovascular: Heart sounds distant but appears to be irregularly irregular without murmurs, rubs, or gallops appreciated. Pulmonary: Diminished throughout but clear in anterior lung simons without crackles, wheezes, or rhonchi. Passive respirations on ventilator. Abdomen:Soft, obese, bowel sounds present, appears nontender, nondistended. Extremities: No clubbing or cyanosis. Moderate anasarca. Bilateral erythema and mild warmth of lower extremities likely stasis dermatitis versus cellulitis. Skin: Normal temperature, turgor, and texture; no rash, ulcers, or subcutaneous nodules appreciated. Neurological: Cranial nerves grossly intact. Psychiatric: Awake and alert. Patient is able to follow commands. Objective Labs Result Diagrams: 02/12/20 04:30 02/12/20 04:30 Labs: Laboratory Results - last 24 hr 02/08/20 02/09/20 02/09/20 05:18 04:52 13:58 WBC RBC Hgb Hct MCV MCH MCHC RDW Plt Count Neut % (Auto) Lymph % (Auto) [place] % (Auto) Eos % (Auto) Baso % (Auto) Neut # (Auto) Lymph # (Auto) [place] # (Auto) Eos # (Auto) Baso # (Auto) ABG pH 7.49 H 7.28 L* ABG pCO2 43.6 75.0 H* ABG pO2 67 L 54 L ABG HCO3 34 H 35 H ABG Total CO2 35 H 37 H ABG O2 Saturation 94 L 81 L* ABG Base Excess 11.0 H 8.0 H FiO2 30 30 Sodium Potassium Chloride Carbon Dioxide BUN Creatinine Estimated GFR BUN/Creatinine Ratio Glucose Calcium Magnesium Procalcitonin 2.39 H 02/10/20 02/10/20 02/10/20 05:00 05:00 08:20 WBC 5.5 RBC 2.75 L Hgb 8.4 L Hct 26.5 L MCV 96.3 MCH 30.5 MCHC 31.7 RDW 17.4 H Plt Count 221 Neut % (Auto) 71.6 Lymph % (Auto) 11.0 L [place] % (Auto) 12.7 Eos % (Auto) 4.2 H Baso % (Auto) 0.5 Neut # (Auto) 3900 Lymph # (Auto) 600 L [place] # (Auto) 700 Eos # (Auto) 200 Baso # (Auto) 0 ABG pH 7.38 ABG pCO2 59.2 H ABG pO2 82 ABG HCO3 35 H ABG Total CO2 37 H ABG O2 Saturation 95 ABG Base Excess 10.0 H FiO2 30 Sodium 132 L Potassium 4.3 Chloride 97 L Carbon Dioxide 36 H BUN 14 Creatinine 0.70 Estimated GFR > 60.0 BUN/Creatinine Ratio 20.0 Glucose 106 Calcium 9.2 Magnesium 1.9 Procalcitonin Assessment & Plan Assessment & Plan narrative: Leyda Nielsen is a 80-year-old female with a past medical history significant for paroxysmal atrial fibrillation on Eliquis, diastolic CHF, chronic hypoxemic and hypercarbic respiratory failure secondary to OHS, JEANIE, COPD and morbid obesity and plaque psoriasis who presented to ED after receiving morphine in the ED earlier in the day for a ground level fall with low back hematoma and back pain with delayed response which resulted in acute hypoxemic and hypercarbic respiratory failure status post intubation. 1. Acute on chronic hypoxemic and hypercarbic respiratory failure, present on admission. Active. -Patient presented with acute on chronic respiratory failure following administration of morphine in the ER for large back hematoma with back pain. By report patient has delayed response to morphine and has been intubated multiple times in the past. Patient's chronic respiratory failure is multifactorial and secondary to obesity hypoventilation syndrome, JEANIE, and COPD. -Initial pH 6.94, pCO2 >130, with a PO2 of 102. Now improved. -Patient developed hypotension related to propofol which was discontinued. Continue minimum sedation with fentanyl boluses. -Continue daily sedation vacations and pressure support trial. Plan to extubate to BiPAP today. Will start trilogy once obtained. Continue supplemental oxygen as necessary to maintain oxygen saturations 88-92%. DO NOT want to over ventilate as will precipitate hypercarbia. 2. Diastolic congestive heart failure now with exacerbation, chronic, present on admission. Stable. -Previous echocardiogram 07/2019 demonstrated normal left and right systolic ventricular function. -Initial proBNP of 4530. -Continue home carvedilol at decreased dose of 3.125 twice daily. -Continue strict I&Os and daily weights. -Patient is now anasarca from IV fluids and drips and will plan to slowly IV diurese over the next several days. Ordered furosemide 40 mg IV x1. 3. Probable acute aspiration pneumonia, present on admission. Resolving. -Secondary to hypercarbia which likely led to aspiration event. -Chest x-ray demonstrated possible pneumonia. Given elevated procalcitonin at 5.41 and acute respiratory failure requiring intubation the patient was started on Unasyn for presumed aspiration event. Procalcitonin trending down. Respiratory panel negative. -Continue Unasyn 3 g every 8 hours x 7 days. 4. Elevated troponin, secondary to demand ischemia present on admission. Resolved. -Suspect demand ischemia related to hypotension from sedation during her episode of acute respiratory failure and possibly acute blood loss. -EKG did not demonstrate any acute ischemic changes such as ST elevation or depression. -Initial troponin 0.056 and peaked at 0.93. Troponin trended down 0.083. No need to further trend. 5. Acute blood loss anemia after ground level fall with large back hematoma and back pain, on chronic anemia, present on admission. Acute portion resolved. -Acute portion secondary to ground level fall with large hematoma on back and chronic portion due to anemia of chronic disease. -Held Eliquis. Received 1 U PRBC with improvement to 8.1. -Initial hemoglobin 8.4. Baseline hemoglobin 8-9. Hemoglobin dropped to 7.3, VTE prophylaxis with enoxaparin was held and received 1U PRBC with appropriate compensation hemoglobin 8.1. Hemoglobin remains stable at 8.4 and plan to restart enoxaparin for VTE prophylaxis today and if remains stable restart anticoagulation with Eliquis. Transfusion goal hemoglobin < 7.0. -Continue to monitor H&H daily. -Continue pain control with fentanyl being used for sedation. 6. Paroxysmal atrial fibrillation on Eliquis, chronic, present on admission. Stable. -Eliquis held due to recent GLF with large back hematoma. -Continue home carvedilol decreased from home dose of 6.25 mg to 3.125 twice daily to avoid hypotension. 7. Recent recurrent C. difficile infection. -Patient was previously on oral vancomycin which was recently restarted at group home [facility] on 02/02/20. Continue for 10 days to stop on 02/12/20. No episodes of diarrhea since admission. 8. GERD, chronic, present on admission. Stable. -Given history of recurrent C. difficile infection will discontinue PPI. -Continue famotidine 20 mg twice daily for acid reflux and GI prophylaxis. 9. COPD, chronic, present on admission. Stable. -Does not represent acute COPD exacerbation. -Continue home Spiriva and Symbicort with hospital formulary medications. 10. Gout, chronic, present on admission. Stable. -Continue home allopurinol 100 mg twice daily. 11. Morbid obesity, chronic, present on admission. Stable. -BMI 52. -Patient has increased risk of complications due to her morbid obesity. Patient's obesity also causes hypoventilation leading to significant respiratory failure in combination with narcotics that suppress her respiratory drive. -Once extubated will plan to consult dietitian. 12. Psoriasis, chronic, present on admission. Stable. -Patient previously Humira which caused significant lower extremity infection and has been discontinued indefinitely. -Patient is on prednisone 4 mg daily presumably for plaque psoriasis? Will consider discontinuation and close monitoring for adrenal insufficiency. Code status: Full code, surrogate decision maker is her daughter VTE prophylaxis: Enoxaparin Disposition: Patient remains hospitalized.
[2020-02-10 10:25] LABS: pH ABG 7.35 (7.35-7.45)
[2020-02-10 10:26] LABS: HCO3 ABG 35 mmol/L (22-26); Oxygen Saturation ABG 92 % (95-100); PCO2 ABG 62.3 mmHg (35-45); PO2 ABG 69 mmHg (80-100); TCO2 ABG 36 mmol/L (21-31)
--- NOTE | 2020-02-10 11:44 | PC.NURSE ---
Pt tolerated SBT ok. She is anxious and restless but awake and following commands. Spoke with Dr. Corbett at 1100. Reported ABG results. Reported pt with bradypnea. RR 9-12. Dr. Corbett rounded. Assessed pt. Orders received to extubate to bipap until home trilogy is available. Spoke with [facility] this AM and requested they bring her trilogy to the hospital. RN stated that she could have it brought over but was unable to give ETA. Pt was extubated to bipap 22/8 50% FIO2 at 1130. Restraints discontinued. Pt is drowsy/fatigued but responds to verbal and follows commands. 1230- Pt was decreased to 30% fio2 at [address] Corbett verbal orders. Pt noted to have decreased O2 sat to 84% on bipap. Checked on pt. Brief eye opening to verbal stimuli and pt is minimally conversant. Voice is quiet. Does attempt coughing to command but coughing and voice are both weak. Minimal air leak noted around mask. Attempted to readjust mask for better fit at which time pt began turning her head [id number] and saying no. Applied O2 at 3LPM via NC as SPO2 is 78%. Pt unable to maintain SPO2 greater than 85% on this modality. RR is shallow mid teens to 20. After careful explanation, pt allowed bipap mask to be replaced. Discussed with Dr. Corbett and orders received to obtain an ABG and titrate bipap settings based upon results. RT notified.
[2020-02-10] MEDS: FUROSEMIDE 40 MG/4 ML VIAL IV (14:03)
[2020-02-10 14:14] LABS: Fractionated Inspired Oxygen 30; HCO3 ABG 33 mmol/L (22-26); Oxygen Saturation ABG 87 % (95-100); PCO2 ABG 73.1 mmHg (35-45); PO2 ABG 63 mmHg (80-100); TCO2 ABG 36 mmol/L (21-31); pH ABG 7.27 (7.35-7.45)
[2020-02-10 18:13] LABS: Procalcitonin 1.26 ng/mL (<0.5)
[2020-02-10 18:35] LABS: HCO3 ABG 34 mmol/L (22-26); PCO2 ABG 60.3 mmHg (35-45); PO2 ABG 74 mmHg (80-100); pH ABG 7.35 (7.35-7.45)
[2020-02-10 18:36] LABS: Fractionated Inspired Oxygen 32; Oxygen Saturation ABG 93 % (95-100); TCO2 ABG 35 mmol/L (21-31)
--- NOTE | 2020-02-10 18:37 | PC.NURSE ---
Pt placed on home Trilogy at 1700. Initially very somnilent then began to wake more easily. Repositioned to maximize breathing effort. ABG done at 1640 shows pH 7.35, PCO2 60. Now cooperative with care. VSS. Will continue to monitor.
[2020-02-10] MEDS: FAMOTIDINE 20 MG/50 ML PIGGYBACK 100 MG IV (21:19)
--- NOTE | 2020-02-10 22:35 | PC.NURSE ---
addendum: Pt passed the swallow eval and was given sips of H2O without coughing. med taken in applesauce. Family members visited at bedside and patient seemed to be cheered by their presence. remains on trilogy with 3L bleedin. TLC hep locked.
--- NOTE | 2020-02-10 23:54 | RT ---
Incr'd Bleed in O2 for low Sats to 4Lpm
[2020-02-11] VITALS (19 sets, daily range): BP systolic 102–120; BP diastolic 54–72; PULSE 56–130; RESP 4–27; TEMP 31–37.1; O2SAT 90–98
[2020-02-11] MEDS: AMPICILLIN/SULBACTAM 3 GM 3 GM in SODIUM CHLORIDE 0.9% 100 ML IV ×4 (00:34→23:59)
--- NOTE | 2020-02-11 01:16 | PC.NURSE ---
Addendum entered by Natividad Talbot R.N. 02/11/20 04:49: Pt continues to desat to 86% frequently on trilogy with 5L O2. RT increased O2 to 8L with trilogy and now satting at 90%. [facility] Addendum entered by Natividad Talbot R.N. 02/11/20 01:26: Pt de sating to 80-90% on NC while sleeping. Switched to trilogy. O2 sats now at 94% with 4L bleed in. Pt tolerating for now. [facility] Original Note: Pt anxious and agitated. Refusing to wear trilogy at this time. Notified Tay CARSON, requesting medication to help with patient anxiety. Pt now on NC at 4L O2 sats at 90-95%.
--- NOTE | 2020-02-11 03:36 | RT ---
Having to incr. O2 bleed in for poor Sats. Now at 8 L
[2020-02-11 05:41] LABS: Add Manual Diff / Slide Review NO; Basophils Absolute Auto 0 /uL (0-100); Basophils Percent Auto 0.1 % (0-2); Eosinophils Absolute Auto 200 /uL (0-450); Eosinophils Percent Auto 3.7 % (2-4); Hematocrit 28.4 % (36-46); Lymphocytes Absolute Auto 700 /uL (1100-4500); Lymphocytes Percent Auto 12.4 % (25-40); Mean Corpuscular HGB Conc 31.6 % (30-36); Mean Corpuscular Hemoglobin 30.9 PG (26-34); Mean Corpuscular Volume 97.7 fL (80-100); Monocytes Absolute Auto 700 /uL (0-900); Monocytes Percent Auto 12.7 % (3-14); Neutrophils Absolute Auto 4100 /uL (1500-7000); Neutrophils Percent Auto 71.1 % (50-75); Platelet Count 232 X10^3/uL (150-400); Red Blood Cell Count 2.91 X10^6/uL (4.0-5.2); Red Cell Distribution Width 16.8 % (11.6-14.8); White Blood Cell Count 5.8 X10^3/uL (4.5-11.0)
[2020-02-11 06:01] LABS: Alanine Aminotransferase 12 IU/L (<35); Albumin 2.7 g/dL (3.5-5.0); Alkaline Phosphatase 128 U/L (38-126); Aspartate Aminotransferase 41 IU/L (14-36); BUN Creatinine Ratio 20.6 (6-22); Bilirubin Total 0.7 mg/dL (0.2-1.3); Blood Urea Nitrogen 13 mg/dL (7-17); Calcium 9.2 mg/dL (8.4-10.2); Carbon Dioxide 36 mmol/L (22-32); Chloride 95 mmol/L (98-107); Estimated Glomerular Filt Rate > 60.0 mL/min (>60); Globulin 2.6 g/dL (1.7-4.1); Glucose 94 mg/dL (80-110); HEMOLYSIS 25 (0-50); Magnesium 1.7 mg/dL (1.6-2.3); Potassium 4.4 mmol/L (3.4-5.1); Sodium 131 mmol/L (137-145); Total Protein 5.3 g/dL (6.3-8.2)
[2020-02-11 07:14] LABS: Procalcitonin 0.74 ng/mL (<0.5)
[2020-02-11] MEDS: ALBUTEROL/IPRATROPIUM 3 ML AMPUL INH ×5 (08:17→23:55)
[2020-02-11] MEDS: carvediloL 3.125 MG TABLET PO ×2 (09:09→20:16)
[2020-02-11] MEDS: ENOXAPARIN 40 MG/0.4 ML SYRINGE SUBCUT (09:10)
[2020-02-11] MEDS: FERROUS SULFATE 325 MG TABLET PO (09:10)
[2020-02-11] MEDS: FLUoxetine 10 MG CAPSULE PO (09:11)
[2020-02-11] MEDS: NYSTATIN POWDER 15GM 1 APPLIC TOP ×2 (09:11→20:17)
[2020-02-11] MEDS: predniSONE 1 MG TABLET 4 MG PO (09:11)
[2020-02-11 09:17] LABS: HCO3 ABG 33 mmol/L (22-26); Oxygen Saturation ABG 88 % (95-100); PCO2 ABG 67.5 mmHg (35-45); PO2 ABG 62 mmHg (80-100); TCO2 ABG 35 mmol/L (21-31)
[2020-02-11 09:18] LABS: Fractionated Inspired Oxygen 48
--- NOTE | 2020-02-11 09:28 | P.PN_ITS ---
Subjective Subjective Date Patient Seen: 02/11/20 Interval history: Leyda Nielsen is a 80-year-old female with a past medical history significant for paroxysmal atrial fibrillation on Eliquis, diastolic CHF, chronic hypoxemic and hypercarbic respiratory failure secondary to OHS, JEANIE, COPD and morbid obesity and plaque psoriasis who presented to ED after receiving morphine in the ED marga ier in the day for a ground level fall with low back hematoma and back pain with delayed response which resulted in acute hypoxemic and hypercarbic respiratory failure status post intubation. The patient is resting in bedside chair comfortably. She is mildly encephalopathic from hypercarbia and sedation. She was successfully extubated to BiPAP yesterday with increasing CO2 and trilogy was implemented as soon as it arrived. Her cognition improved throughout the night into this morning. Plan for speech therapy swallow evaluation and if passes will implement small breaks off trilogy for food. Continue IV diuresis. Patient is voiding via Willoughby catheter and limiting without difficulty. Exam Vital Signs (past 8 hours): - 02/11/20 02:00 02/11/20 03:00 02/11/20 03:31 Temperature Pulse Rate 76 82 Respiratory Rate 17 22 Blood Pressure 109/57 L 120/61 120/61 Pulse Oximetry 92 95 02/11/20 04:00 02/11/20 05:00 02/11/20 06:00 Temperature Pulse Rate 71 76 76 Respiratory Rate 15 17 18 Blood Pressure 102/56 L 104/55 L 113/54 L Pulse Oximetry 94 90 L 92 02/11/20 07:00 02/11/20 08:00 02/11/20 08:17 Temperature 98.8 F Pulse Rate 71 77 Respiratory Rate 16 27 H Blood Pressure 108/56 L 112/58 L 112/58 L Pulse Oximetry 92 95 96 02/11/20 09:00 Temperature Pulse Rate 69 Respiratory Rate 16 Blood Pressure 103/56 L Pulse Oximetry 95 Fraction of Inspired Oxygen 0.6 Oxygen Delivery Method BiPAP Oxygen Flow Rate 7 Narrative Exam Narrative: General: Elderly female lying in bed and in no acute distress, well-developed, well-nourished, appropriately interactive HEENT: Normocephalic, atraumatic. External ears without defect. Pupils equal, round, and reactive to light. Anicteric sclerae, moist conjunctivae, and no lid lag. Neck: Supple with full range of motion. Mild jugular venous distension. No lymphadenopathy or thyromegaly. Cardiovascular: Heart sounds distant but appears to be irregularly irregular without murmurs, rubs, or gallops appreciated. Pulmonary: Diminished throughout but clear in anterior lung simons without crackles, wheezes, or rhonchi. Abdomen:Soft, obese, bowel sounds present, nontender, nondistended. Back: Large stable hematoma and low thoracic and upper lumbar center of spine. Genitourinary: Willoughby catheter in place. Extremities: No clubbing or cyanosis. Mild anasarca. Bilateral erythema and mild warmth of lower extremities Skin: Normal temperature, turgor, and texture; no rash, ulcers, or subcutaneous nodules appreciated. Neurological: Cranial nerves grossly intact. Psychiatric: Awake and alert. Patient is able to follow commands. Objective Labs Result Diagrams: 02/13/20 14:45 02/13/20 14:45 Labs: Laboratory Results - last 24 hr 02/10/20 02/10/20 02/10/20 05:00 09:55 13:45 WBC RBC Hgb Hct MCV MCH MCHC RDW Plt Count Neut % (Auto) Lymph % (Auto) [place] % (Auto) Eos % (Auto) Baso % (Auto) Neut # (Auto) Lymph # (Auto) [place] # (Auto) Eos # (Auto) Baso # (Auto) ABG pH 7.35 7.27 L* ABG pCO2 62.3 H* 73.1 H* ABG pO2 69 L 63 L ABG HCO3 35 H 33 H ABG Total CO2 36 H 36 H ABG O2 Saturation 92 L 87 L ABG Base Excess 9.0 H 6.0 H FiO2 0.30 30 Sodium Potassium Chloride Carbon Dioxide BUN Creatinine Estimated GFR BUN/Creatinine Ratio Glucose Calcium Magnesium Total Bilirubin AST ALT Alkaline Phosphatase Total Protein Albumin Globulin Albumin/Globulin Ratio Procalcitonin 1.26 H 02/10/20 02/11/20 02/11/20 18:22 05:20 05:20 WBC 5.8 RBC 2.91 L Hgb 9.0 L Hct 28.4 L MCV 97.7 MCH 30.9 MCHC 31.6 RDW 16.8 H Plt Count 232 Neut % (Auto) 71.1 Lymph % (Auto) 12.4 L [place] % (Auto) 12.7 Eos % (Auto) 3.7 Baso % (Auto) 0.1 Neut # (Auto) 4100 Lymph # (Auto) 700 L [place] # (Auto) 700 Eos # (Auto) 200 Baso # (Auto) 0 ABG pH 7.35 ABG pCO2 60.3 H ABG pO2 74 L ABG HCO3 34 H ABG Total CO2 35 H ABG O2 Saturation 93 L ABG Base Excess 8.0 H FiO2 32 Sodium 131 L Potassium 4.4 Chloride 95 L Carbon Dioxide 36 H BUN 13 Creatinine 0.63 Estimated GFR > 60.0 BUN/Creatinine Ratio 20.6 Glucose 94 Calcium 9.2 Magnesium 1.7 Total Bilirubin 0.7 AST 41 H ALT 12 Alkaline Phosphatase 128 H Total Protein 5.3 L Albumin 2.7 L Globulin 2.6 Albumin/Globulin Ratio 1.0 Procalcitonin 02/11/20 02/11/20 05:20 08:07 WBC RBC Hgb Hct MCV MCH MCHC RDW Plt Count Neut % (Auto) Lymph % (Auto) [place] % (Auto) Eos % (Auto) Baso % (Auto) Neut # (Auto) Lymph # (Auto) [place] # (Auto) Eos # (Auto) Baso # (Auto) ABG pH 7.30 L ABG pCO2 67.5 H* ABG pO2 62 L ABG HCO3 33 H ABG Total CO2 35 H ABG O2 Saturation 88 L ABG Base Excess 7.0 H FiO2 48 Sodium Potassium Chloride Carbon Dioxide BUN Creatinine Estimated GFR BUN/Creatinine Ratio Glucose Calcium Magnesium Total Bilirubin AST ALT Alkaline Phosphatase Total Protein Albumin Globulin Albumin/Globulin Ratio Procalcitonin 0.74 H Assessment & Plan Assessment & Plan narrative: Leyda Nielsen is a 80-year-old female with a past medical history significant for paroxysmal atrial fibrillation on Eliquis, diastolic CHF, chronic hypoxemic and hypercarbic respiratory failure secondary to OHS, JEANIE, COPD and morbid obesity and plaque psoriasis who presented to ED after receiving morphine in the ED earlier in the day for a ground level fall with low back hematoma and back pain with delayed response which resulted in acute hypoxemic and hypercarbic respiratory failure status post intubation. 1. Acute on chronic hypoxemic and hypercarbic respiratory failure, present on admission. Acute portion resolving. -Patient presented with acute on chronic respiratory failure following admin istration of morphine in the ER for large back hematoma with back pain. By report patient has delayed response to morphine and has been intubated multiple times in the past. Patient's chronic respiratory failure is multifactorial and secondary to obesity hypoventilation syndrome, JEANIE, and COPD. -Patient was successfully extubated 02/09 to BiPAP and later home trilogy. Continue trilogy at all times with breaks for meals. Continue supplemental oxygen as necessary to maintain oxygen saturations 88-92%. DO NOT want to over ventilate patient as this will precipitate hypercarbia. 2. Diastolic congestive heart failure now with exacerbation, chronic, present on admission. Stable. -Previous echocardiogram 07/2019 demonstrated normal left and right systolic ventricular function. -Initial proBNP of 4530. -Continue home carvedilol at decreased dose of 3.125 twice daily to avoid hypotension. -Continue strict I&Os and daily weights. Net +4L. -Patient became anasarcic from IV fluids and drips and now improving with diuresis. Continue furosemide 40 mg IV daily. 3. Probable acute aspiration pneumonia, present on admission. Resolving. -Secondary to hypercarbia which likely led to aspiration event. -Chest x-ray demonstrated possible pneumonia. Given elevated procalcitonin at 5.41 and acute respiratory failure requiring intubation the patient was started on Unasyn for presumed aspiration event. Procalcitonin trending down. Respiratory panel negative. -Continue Unasyn 3 g every 8 hours x 7 days to stop 02/13. 4. Elevated troponin, secondary to demand ischemia present on admission. R esolved. -Suspect demand ischemia related to hypotension from sedation during her episode of acute respiratory failure and possibly acute blood loss. -EKG did not demonstrate any acute ischemic changes such as ST elevation or depression. -Initial troponin 0.056 and peaked at 0.93. Troponin trended down 0.083. No need to further trend. 5. Acute blood loss anemia after ground level fall with large back hematoma and back pain, on chronic anemia, present on admission. Acute portion resolved. -Acute portion secondary to ground level fall with large hematoma on back and chronic portion due to anemia of chronic disease. -Held Eliquis. Received 1 U PRBC with improvement to 8.1. -Initial hemoglobin 8.4. Baseline hemoglobin 8-9. Hemoglobin dropped to 7.3 and VTE prophylaxis with enoxaparin was held and received 1U PRBC with appropriate compensation hemoglobin 8.1. Hemoglobin improving now 9.0 and hematoma stable. Plan to restart Eliquis 5 mg twice daily today. Transfusion goal hemoglobin < 7.0. -Continue to monitor H&H daily. 6. Paroxysmal atrial fibrillation on Eliquis, chronic, present on admission. Stable. -Eliquis initial held due to recent GLF with large back hematoma. Plan to restart Eliquis 5 mg twice daily today. -Continue home carvedilol decreased from home dose of 6.25 mg to 3.125 twice daily to avoid hypotension. 7. Recent recurrent C. difficile infection. -Patient was previously on oral vancomycin which was recently restarted at [facility] on 02/02/20. Continue for 10 days to stop on 02/12/20. No episodes of diarrhea since admission. 8. GERD, chronic, present on admission. Stable. -Given history of recurrent C. difficile infection will discontinue PPI. -Continue famotidine 20 mg twice daily for acid reflux. 9. COPD, chronic, present on admission. Stable. -Does not represent acute COPD exacerbation. -Continue home Spiriva and Symbicort with hospital formulary medications. 10. Gout, chronic, present on admission. Stable. -Continue home allopurinol 100 mg twice daily. 11. Morbid obesity, chronic, present on admission. Stable. -BMI 52. -Patient has increased risk of complications due to her morbid obesity. Patient's obesity also causes hypoventilation leading to significant respiratory failure in combination with narcotics that suppress her respiratory drive. -Ordered dietitian consult, pending. 12. Psoriasis, chronic, present on admission. Stable. -Patient previously Humira which caused significant lower extremity infection and has been discontinued indefinitely. -Patient is on prednisone 4 mg daily presumably for plaque psoriasis? Will consider discontinuation and close monitoring for adrenal insufficiency. Code status: Full code, surrogate decision maker is her daughter VTE prophylaxis: Eliquis Disposition: Patient remains hospitalized.
[2020-02-11] MEDS: BUDESONIDE 0.5 MG/2 ML NEB INH ×2 (09:55→23:54)
[2020-02-11] MEDS: MAGNESIUM HYDROXIDE 30 ML UDC PO (11:20)
[2020-02-11] MEDS: VANCOMYCIN 500 MG VIAL 125 MG TUBE (11:21)
--- NOTE | 2020-02-11 12:41 | OT.IP.EVAL ---
Current Diagnoses Acute and chronic respiratory failure with hypercapnia (02/06/20) Past Medical History (Last Reviewed 02/06/20 @ 17:54 by Holly Dougherty MD) Anemia Atrial fibrillation Cardiomegaly Congestive heart failure COPD (chronic obstructive pulmonary disease) Depression Diabetes Hospitalization or health care facility admission within last 6 months Hypercapnic respiratory failure (07/2019) JEANIE on CPAP Osteoarthritis PAF (paroxysmal atrial fibrillation) Pulmonary hypertension Ulcerative colitis Surgical History (Last Reviewed 02/06/20 @ 17:54 by Holly Dougherty MD) History of incision and drainage (2019) Occupational Therapy Inpatient Evaluation/Re-Eval M1 PT/OT-IP Prior Functional Status Start: 02/11/20 12:08 Freq: NEEDED Status: Active Protocol: Document 02/11/20 15:03 CGR (Rec: 02/11/20 15:16 CGR [id number]) Medical Review Prior Functional Status Medical History Reviewed Yes Communication Pt is very lethargic. Daughter provided social hx and PLOF. Per EMR, pt was able to make needs known in December 2019. [employer] provided additional information over phone. Mobility and Gait Modified IND with FWW for home amb. Pt has very limited amb distance and usually doesn't leave the house. Most recently , pt has been in SNF, where her amb distance was limited to ~20 ft. Pt gets SOB very quickly. Activities of Daily Living and IADL's IND for all ADLs with set-up assistance per [employer]. Social History Household Members none Living Arrangements Skilled Nurse Facility Number of Floors (Floors) Two Floors Number of Stairs To Enter/Railing? Pt has chair lift and does not have to perform any steps to enter. Pt stays on the main level. Home Environment Standard Height Toilet,Walk in Shower Home Equipment Front Wheel Walker,Raised Toilet Seat w/Armrests,Shower Seat with Backrest,Long Handled Sponge,Long Handled Shoe Horn,Physicist Astrophysics,Sock Aid, Grab Bars In Shower Employment Status Unknown Additional Social History Comment Pt's daughter is not sure whether the shower seat has backrest or not. Pt also has leg cook jelly. Family lives in [place], who will be available to help if needed but they work full-time. M2 OT-IP Current Condition Start: 02/11/20 15:03 Freq: Status: Active Protocol: Document 02/11/20 15:03 CGR (Rec: 02/11/20 15:16 CGR [id number]) Occupational Therapy Current Condition Current Condition Evaluation Date 02/11/20 Treatment Diagnosis acute on chronic respiratory failure Diagnosis Onset Date 02/06/20 Post Operative Precautions Other Precautions Pt extubated 02/10/20 M3 OT- IP Subjective and Pain Start: 02/11/20 15:03 Freq: Status: Active Protocol: Document 02/11/20 15:03 CGR (Rec: 02/11/20 15:16 CGR [id number]) OT- Subjective Occupational Therapy Visit Type Type Initial Evaluation Visit Start Time 11:48 Visit Stop Time 12:01 Total Visit Minutes 24 Notes 2 sessions: 5958-0625, 1230- 1241 OT Pain Assessment Pain When Pain Assessed At Rest Pain Present Pain Present Denied Pain M4 OT- IP ADL's Start: 02/11/20 15:03 Freq: Status: Active Protocol: Document 02/11/20 15:03 CGR (Rec: 02/11/20 15:16 CGR [id number]) OT [id number] General Evaluation Self-Feeding Ability Maximum Assistance,Total Assistance Areas Needing Assistance Bringing [place] to Mouth Comments OT Self-Feeding Comments Pt will benefit from built up handle OT ADL-Grooming General Evaluation Grooming Ability Total Assistance Areas Needing Assistance Face Washing OT ADL-Oral Care Comments Oral Care Comments Not performed OT ADL-Dressing General Eval Lower Body Dressing Ability Total Assistance OT ADL-Toileting Comments OT Toileting Comments Not performed OT ADL-Bathing Comments OT Bathing Comments Not performed M5 OT- IP IADL's Start: 02/11/20 15:03 Freq: Status: Active Protocol: Document 02/11/20 15:03 CGR (Rec: 02/11/20 15:16 CGR [id number]) OT-Instrumental Activities of Daily Living Deficits IADL Deficits Identified Deficits Home Safety Awareness Awareness of Need for Assistance at Home Decreased Awareness Ability to Problem Solve Emergency Unable to Problem Solve Situations Medication Management Medication Management Caregiver Administers Money Management Money Management Caregiver Provides Assistance Meal Preparation Meal Preparation Caregiver Provides Assist Data Control Assistant Data Control Assistant Caregiver Provides Assist Driving Driving Comments Pt does not drive M6 OT- IP Functional Cognition Start: 02/11/20 15:03 Freq: Status: Active Protocol: Document 02/11/20 15:03 CGR (Rec: 02/11/20 15:16 CGR [id number]) Cognitive Factors Limiting Selfcare Function Cognitive Ability Level of Alertness Confusional State,Drowsy, Lethargic Patient Orientation Name,Month,Year,Place Attention Span Ability Unable to Focus,Unable to Sustain Attention Ability to Follow Commands Able to Follow One Step Commands with Increased Time, Able to Follow One Step Commands with Repetition M7 OT- IP Mobility and Balance Start: 02/11/20 15:03 Freq: Status: Active Protocol: Document 02/11/20 15:03 CGR (Rec: 02/11/20 15:16 CGR [id number]) OT- Balance Assessment Sitting Balance and Reactions Static Sitting Balance Ability Poor Dynamic Sitting Balance Ability Poor M8 OT- IP Objective Assessments Start: 02/11/20 15:03 Freq: Status: Active Protocol: Document 02/11/20 15:03 CGR (Rec: 02/11/20 15:16 CGR [id number]) OT Gross Range of Motion Upper Extremity Range of Motion Assessment Within Functional Limits OT Strength Upper Extremity Strength Assessment Bilaterally Impaired Comments Strength Comments Pt with profoundly poor strength OT- Coordination Assessment Upper Extremity Finger to Nose Test Bilateral UE Impaired Finger Tapping Test Bilateral UE Impaired OT Sensation Assessment Edema Edema Present Edema Comments Pt with pitting edema to BUE M9 OT- IP Assessment and Plan Start: 02/11/20 15:03 Freq: Status: Active Protocol: Document 02/11/20 15:03 CGR (Rec: 02/11/20 15:16 CGR [id number]) OT Summary Assessment and Plan Potential Rehabilitation Potential Fair Summary OT Impairments Strength,Balance,Coordination, Functional Cognition, Functional Mobility,Self- Feeding,Grooming,Dressing, Toileting,Bathing,Toilet Transfers,Shower Transfers, Activity Tolerance Progress Towards Goals Slow Progress due to Medical Issues Assessment Summary Pt presents as a moderate complexity evaluation s/p admit for respiratory failure. Pt is currently profoundly weak and lethargic with poor participation in OT eval. Will continue to follow for OT needs. Pt will likely discharge back to her SNF. Goals Self-Feeding Goal Independent Grooming Goal Independent Dressing Goal Independent Toileting Goal Independent Bathing Goal Independent Toilet Transfer Goal Independent Shower Transfer Goal Independent Days to Meet Goals 30 Frequency of Treatment Frequency Of Treatment Once a Day Treatment Plan OT Treatment Plan ADL Training,Functional Cognition Training,Functional Mobility,Patient/Family Education,Discharge Planning Other Treatment Recommendations and Next ADLs as able. Treatment Focus Discharge Recommendations OT Discharge Recommendations SNF Rehab Transportation Needs at Discharge Wheelchair/Cabulance
--- NOTE | 2020-02-11 12:58 | CM.DPNOTE ---
DCP Cont Met w/patient and Dr Corbett this morning; patient extubated now and using her Trilogy machine. Patient is very difficult to understand this AM and seems to become immediately drowsy when she takes Trilogy off (?) Dr Corbett attempts to discuss code status once again, discuss DNR/DNI. According to Dr Corbett, patient had requested yesterday not to be re-intubated if it were indicated. Today, patient does not seem alert enough to confirm or deny this request. DNR status remains in place TC to patient's son Abdulaziz P# [phone], he shares DPOA w/patient's dtr Db P#[phone]. Discussed the likelihood that patient will require a regional intermodal truck driver care plan, she remains medically and physically fragile and is improving very slowly. Explained patient is awake today but not very alert. Abdulaziz understands and asks this AUTOMOTIVE POWER ELECTRONICS ENGINEER to contact [facility] about patient's return. Updated Dr Corbett, she explains she had a long conversation yesterday w/son Abdulaziz about patient's guarded prognosis, no changes to current medical POC Then contacted [facility]; patient had been ready to DC home from SNF 02.05.20, and ended up being admitted to . Mercedes explains that [facility] Automatic Engraver has been in contact w/dtr Db and son Abdulaziz re: patient being out of Medicare days and so private payment will be required if she is to be admitted at [facility]. They are awaiting further f/u from family. This AUTOMOTIVE POWER ELECTRONICS ENGINEER awaiting medical POC to unfold; patient making slow improvement, DC date unknown. Will need to discuss DCP w/patient's DPOAs -son Abdulaziz and dtmisael Ace, are they preparing to pay privately at [facility] ?..what is the LTC plan? Following closely. JACKELIN Cabello
--- NOTE | 2020-02-11 13:23 | ST.IPCSEOM ---
Visit Care Team Role Provider Type Josue Menchaca DO Primary Care Provider Non-Staff Specialty: Family Practice Address: [address] [place] [address], [phone] Email: Marleny Stokes DO Emergency Provider Physician Referring Provider Specialty: Emergency Medicine Address: [address] [place] [address], [id number] Email: [email or web address] Holly Dougherty MD Admit Provider Physician Attending Provider Specialty: Internal Medicine Address: [address] [place] [address], [id number] Email: [email or web address] Current Diagnoses Acute and chronic respiratory failure with hypercapnia (02/06/20) Past Medical History (Last Reviewed 02/06/20 @ 17:54 by Holly Dougherty MD) Anemia (Medical) Atrial fibrillation (Medical) Cardiomegaly (Medical) Chronic Congestive heart failure (Medical) COPD (chronic obstructive pulmonary disease) (Medical) Depression (Medical) Diabetes (Medical) Hospitalization or health care facility admission within last 6 months (Medical) [facility] admit 08/01/19-08/17/19 Sepsis right foot Hypercapnic respiratory failure (Medical 07/2019) JEANIE on CPAP (Medical) Osteoarthritis (Medical) PAF (paroxysmal atrial fibrillation) (Medical) Pulmonary hypertension (Medical) Ulcerative colitis (Medical) Speech-Language Pathology Swallow Evaluation 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 Corbett Setting Assessment Location Acute Care Visit Type Note Type Initial evaluation Patient Information Identification Type Name,Wristband History Leyda Nielsen is an 80-year-old female with chronic respiratory failure, atrial fibrillation, congestive heart failure, 2 morbid obesity who fell injured her back. She is on Pradaxa and had a significant contusion. She was evaluated in the emergency department where she was given 2 mg of IV morphine this morning. She underwent a CT scan scan of her spine which was negative for any acute hematoma infection or fracture . The patient then had a delayed response and presented back to the hospital and acute respiratory failure. Patient has known obstructive sleep apnea for which she takes CPAP. She is also C diff positive and currently under treatment with oral vancomycin. She has a history of diabetes COPD and anemia. The patient was intubated in the emergency department. By report her pCO2 was greater than 100. She was acidotic with pH of 6.9. Patient was given propofol in the emergency department for sedation and became hypotensive. She required norepinephrine for pressure support. Patient is now in the intensive care unit. Following extubation swallowing assessment was ordered to determine pt safety with PO intake. Subjective Observations Pt was seated in her bedside chair. he was somnulent and could not keep her eyes open. Nursing was ready for PO medications trial during assessment. Reported by Patient Comment Possible aspiration related to intubation. Current Diet Nothing by mouth Baseline Feeding Method Needs some assistance Objective Assessment Mental Status Responsive,Cooperative, Confused,Lethargic Oral Integrity WFL Dentition Within normal limits Lip Function Within normal limits Observation of Lips at Rest Symmetrical Pucker Within normal limits Tongue Function Within normal limits Jaw Opening Reduced range of motion Hard/Soft Palate Function Within normal limits Food and Liquid Trials Position During Assessment Slightly reclined Liquids Trialed Ice chips,Thin,[place] Solids Trialed Puree Administration Type Tea spoon Oral Impairment Within functional limits Oral Phase Comments WFL Pharyngeal Impairment Mildly impaired Pharyngeal Phase Comments Hyolaryngeal elevation appeared to be WFL upon palaption. However, the pt was very lethargic and ahd difficulty keeping her eyes open. She was repeating that she needed to get to her 1:11 appointment in [place]. She was slow to follow directions as well. Trial thin liquids were observed. Pt had an audible swallow indicating a possible lack of coordination of the muscles to protect the airway. She demonstrated a delayed throat clear following thin liquid trials. Puree texture was then swallowed without difficulty. Medications in applesauce were also swallowed without difficulty. No overt s/sx aspiration observed. Fatigue/Endurance Severe fatigue Results Pt presented with mild oropharyngeal dysphagia secondary to lethargy, inability to stay alert and confusion. She also needed 1: 1 feeding secondary to mentation. It is likely that as she clears and becomes more alert and less confused that her diet texture can be advanced. However, due to current status, a conservative diet is recommended: Puree texture with nectar thick liquids and medications in a carrier Findings Swallowing Function Dysphagia unspecified Severity of Swallow Impairment Mildly impaired Contributing Factors to Swallow Reduced alertness or attention Impairment ,Difficulty following directions,Impaired airway protection Prognosis Fair Based on Cognitive status,Age, Comorbidities Impact on Safety and Functioning Risk for aspiration,Risk for inadequate nutrition/hydration Recommendations Instrumental Assessment No Swallowing Treatment Yes Frequency as pt'c mentation clears Recommended Solids Puree Recommended Liquids [place] Other Recommendations medications in carrier 1:1 feeding by staff/family Safety Precautions/Swallowing Supervision needed for all Recommendations meals,To be fed only by trained staff/family,Feed only when alert,Reduce distractions,Remain upright ( 90 degrees) during all oral intake,Upright position at least 30 minutes after meals, Small bites and sips when eating,Slow rate; swallow between bites,No straw,1 to 1 feeding assistance,Family assistance/supervision,Strict oral care after intake Medication Recommendations Whole in Carrier Discharge Recommendations intermediate facility,Home with Home Health Education Patient/Caregiver Education Patient requires further education/training,Family/ caregivers require further education/training Goals Long-term Goals Pt will safely tolerate the least restrictive diet needed to meet nutrition and hydration needs without s/sx aspiration
[2020-02-11] MEDS: FUROSEMIDE 40 MG/4 ML VIAL IV (13:35)
--- NOTE | 2020-02-11 15:01 | PC.NURSE ---
Mentation has been intermittently confused/drowsy today. Pt has been using trilogy with 3-5L O2 bleed in most of the day and nasal cannula 2-6L. Up to chair via mago. Pt swallowed pills in carrier and required 1:1 assist for meals. No BM noted this hospital stay. Pt declined supp but was willing to take MOM. She took about half of a dose of MOM and declined the rest. Daughter at bedside. Bed alarm on. .
--- NOTE | 2020-02-11 16:52 | DIET.PN ---
Dietary Progress Note 80y F extubated and assigned dysphagia puree/NKT. Pt last admission was July 2019 and has gained 4.7kg (10#) despite previous nutrition counseling on weight management. Pt home diet is 2-3 meals/d c snacks, drinks wine nightly. Pt enjoys salads, soups, cheese c crackers, pb on bagels, and fresh fruit. 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 Pt med hx of paroxysmal atrial fibrillation, diastolic CHF, chronic hypoxemic and hypercarbic respiratory failure due to oxygen dependent COPD and plaque psoriasis. Pts morbid obesity (230% ideal body weight) complicates hospital course r/t increased weight: reducing lung expansion c COPD, reduced baseline mobility and PRO needs calculated based on body weight making PRO goal difficult to attain without RD management and good pt compliance. Meals to contain soft pro, soft vegetables and few other meal fillers to promote reduced inflammation, avoid weight gain as pt now c further reduced mobility. HT: 162.5cm WT: 132.7kg (up from 128kg on 08/13/19) BMI:51.8 [place]: 10 high risk for skin breakdown Nutrition Diagnosis: increased PRO needs r/t wound healing (right foot abscess involving the dorsum of the foot and the posterior tibial tendon sheath x2 wound vacs) aeb morbidly obese pt (BMI 46.2) c high baseline protein needs (100g/d), pt tires easily c chewing r/t o2 dependent COPD, pt immune compromised c Humira tx for plaque psoriasis. Interventions: 1. To support protein needs recc ONS Ensure Max once daily. 2. To support CHF, sodium restricted diet (2g max/d). 3. To support weight maintenance/healthy weight loss and inflammatory state, meals to contain soft PRO, salads or soft cooked vegetables, and fruit, minimizing filler foods c goal of no more than 1600kcal per day. Diet Order: Strongly suggest Consistent Carb 3 diet c focus on protein and vegetables EER: 1600kcal (promote healthy wt/reduced mobility), 100g PRO (0.8g/kg) Monitoring/Evaluations: POs
--- NOTE | 2020-02-11 18:43 | DI.RAD.S_ITS ---
PROCEDURE: XR CHEST 1V INDICATIONS: check picc placement. TECHNIQUE: One view of the chest was acquired. COMPARISON: [facility], , XR CHEST 1V, 02/09/2020, 5:59. FINDINGS: Surgical changes and devices: Endotracheal tube and nasogastric tube have been removed. A midline catheter on the right is seen with the tip in the subclavian vein. Lungs and pleura: A single view of the chest was performed. Heart size is enlarged. The study is rotated to the right. No pneumothorax. Costophrenic angles are blunted bilaterally consistent with pleural effusions and/or atelectasis. Mediastinum: Mediastinal contours appear normal. Heart size is normal. Bones and chest wall: No suspicious bony lesions. Overlying soft tissues appear unremarkable. IMPRESSION: 1. Cardiomegaly. 2. Bilateral pleural effusions and/or atelectasis. 3. Interval removal of nasogastric tube and endotracheal tube. Dictated by: Zaire Zazueta M.D. on 02/11/2020 at 21:50 Approved by: Zaire Zazueta M.D. on 02/11/2020 at 21:53
[2020-02-11] MEDS: FAMOTIDINE 20 MG TABLET PO (20:17)
[2020-02-11] MEDS: APIXABAN 5 MG TABLET PO (20:17)
--- NOTE | 2020-02-11 22:34 | PC.NURSE ---
Shift Note: Pt alert and awake, cooperative with care. O2sats maintained at 92% with 2l bleedin. Pt able to shift her weight for comfort. Double lumen subclavian cath placed per DI RN, flushed with heparin. Pt denies pain.
[2020-02-12] VITALS (15 sets, daily range): BP systolic 98–140; BP diastolic 56–63; PULSE 52–97; RESP 16–24; TEMP 36.1–37.1; O2SAT 89–99
[2020-02-12] MEDS: VANCOMYCIN 125 MG CAPSULE PO ×3 (00:01→12:30)
[2020-02-12 04:46] LABS: Add Manual Diff / Slide Review NO; Basophils Absolute Auto 0 /uL (0-100); Basophils Percent Auto 0.3 % (0-2); Eosinophils Absolute Auto 200 /uL (0-450); Eosinophils Percent Auto 2.8 % (2-4); Hematocrit 30.3 % (36-46); Hemoglobin 9.5 g/dL (12.0-16.0); Lymphocytes Absolute Auto 700 /uL (1100-4500); Lymphocytes Percent Auto 9.2 % (25-40); Mean Corpuscular HGB Conc 31.4 % (30-36); Mean Corpuscular Hemoglobin 30.5 PG (26-34); Mean Corpuscular Volume 97.1 fL (80-100); Monocytes Absolute Auto 800 /uL (0-900); Monocytes Percent Auto 11.1 % (3-14); Neutrophils Absolute Auto 5400 /uL (1500-7000); Neutrophils Percent Auto 76.6 % (50-75); Platelet Count 304 X10^3/uL (150-400); Red Blood Cell Count 3.12 X10^6/uL (4.0-5.2); Red Cell Distribution Width 16.7 % (11.6-14.8); White Blood Cell Count 7.1 X10^3/uL (4.5-11.0)
[2020-02-12 04:55] LABS: Magnesium 1.8 mg/dL (1.6-2.3)
[2020-02-12 04:57] LABS: Alanine Aminotransferase 14 IU/L (<35); Albumin 3.1 g/dL (3.5-5.0); Alkaline Phosphatase 144 U/L (38-126); Aspartate Aminotransferase 36 IU/L (14-36); BUN Creatinine Ratio 22.5 (6-22); Bilirubin Total 0.6 mg/dL (0.2-1.3); Blood Urea Nitrogen 16 mg/dL (7-17); Calcium 9.8 mg/dL (8.4-10.2); Carbon Dioxide 37 mmol/L (22-32); Chloride 96 mmol/L (98-107); Estimated Glomerular Filt Rate > 60.0 mL/min (>60); Glucose 86 mg/dL (80-110); HEMOLYSIS < 15 (0-50); Potassium 4.2 mmol/L (3.4-5.1); Sodium 133 mmol/L (137-145); Total Protein 6.1 g/dL (6.3-8.2)
[2020-02-12 05:18] LABS: Procalcitonin 0.45 ng/mL (<0.5)
--- NOTE | 2020-02-12 06:10 | PC.NURSE ---
Addendum entered by Toyin Aguilar R.N. 02/12/20 06:39: Patient requesting to go back on Trilogy now - sats remain 94% on 3L NC. Will place patient back on machine with previous 3L bleed in. Original Note: manager shift note: Patient with marked confusion throughout shift. Upon initial assessment, patient wearing Trilogy machine with 3L bleed in. Patient tolerating well with sats 88-94%. As shift progressed, patient more restless, disoriented. 0600 Trilogy removed per patient request. Patient back on 4L NC. Patient turned and repositioned every 2 hours throughout shift to prevent further skin breakdown. Patient remains on tele, afib cvr. [place] cath in place with good UOP. Call light in reach, will continue to monitor patient.
[2020-02-12] MEDS: NYSTATIN POWDER 15GM 1 APPLIC TOP ×2 (09:26→20:10)
[2020-02-12] MEDS: carvediloL 3.125 MG TABLET PO (09:26)
[2020-02-12] MEDS: FLUoxetine 10 MG CAPSULE PO (09:27)
[2020-02-12] MEDS: ALBUTEROL/IPRATROPIUM 3 ML AMPUL INH ×4 (09:30→22:15)
[2020-02-12] MEDS: BUDESONIDE 0.5 MG/2 ML NEB INH ×2 (09:30→22:15)
[2020-02-12] MEDS: FERROUS SULFATE 325 MG TABLET PO (09:31)
[2020-02-12] MEDS: APIXABAN 5 MG TABLET PO ×2 (09:31→20:07)
[2020-02-12] MEDS: AMPICILLIN/SULBACTAM 3 GM 3 GM in SODIUM CHLORIDE 0.9% 100 ML IV ×2 (09:31→16:36)
[2020-02-12] MEDS: ACETAMINOPHEN 325 MG TABLET PO ×2 (09:34→20:06)
[2020-02-12] MEDS: allopurinoL 100 MG TABLET PO ×2 (09:36→20:09)
--- NOTE | 2020-02-12 10:27 | PC.NURSE ---
Addendum entered by Vida Jaeger R.N. 02/12/20 14:50: pt called out requesting to get up to bsc- contacted PT for assit as they need to do their assessment but then pt declined to get up from bed stating she was too tired - placed on bedpan at this time Addendum entered by Vida Jaeger R.N. 02/12/20 12:11: pt asked to get from chair to bsc for bm- placed gait belt and had staff of 2 at each side as pt stood up - she was unable to take steps to get to bsc and with eyes closed and calling out said i'm going down prior to becoming limp with no effort by pt- PHYSICAL THERAPY ASSISTED AND WE WERE ABLE TO PLACE SLING UNDER PT AND USE MECHANICAL LIFT TO TRANSFER TO CHAIR AND THEN TO BED. ALL THE WHILE, PT CALLING OUT ORDERS TO STAFF WITH MENIAL TASKS- RESTING IN BED AT PRESENT ON [facility] WITH 2L BLEED IN SPO2 90% Original Note: pt more alert this am able to participate in am care and voice- need for bedpan as well as stand to transfer ( with assist of 2 staff) and use of gait belt and fww- she continues to wax and wanes with her mentation- bathed and participated in breakfast although her fine motor skills remain weak. working with OT-and ST at present and then will return to [facility] with 2l o2 bleed in-. She is up to chair and will receive iv lasix this am per md order
--- NOTE | 2020-02-12 10:33 | OT.IP.TRT ---
Current Diagnoses Acute and chronic respiratory failure with hypercapnia (02/06/20) Occupational Therapy Treatment Note M2 OT-IP Current Condition Start: 02/11/20 15:03 Freq: Status: Active Protocol: Document 02/11/20 15:03 CGR (Rec: 02/11/20 15:16 CGR [id number]) Occupational Therapy Current Condition Current Condition Evaluation Date 02/11/20 Treatment Diagnosis acute on chronic respiratory failure Diagnosis Onset Date 02/06/20 Post Operative Precautions Other Precautions Pt extubated 02/10/20 M3 OT- IP Subjective and Pain Start: 02/11/20 15:03 Freq: Status: Active Protocol: Document 02/12/20 13:05 CGR (Rec: 02/12/20 13:16 CGR [email or web address]) OT- Subjective Occupational Therapy Visit Type Type Progress Note Visit Start Time 10:10 Visit Stop Time 10:33 Total Visit Minutes 23 Notes Pt sitting up in chair when OT entered. OT Pain Assessment Pain When Pain Assessed At Rest Pain Present Pain Present Denied Pain M4 OT- IP ADL's Start: 02/11/20 15:03 Freq: Status: Active Protocol: Document 02/12/20 13:05 CGR (Rec: 02/12/20 13:16 CGR [email or web address]) OT [id number] Comments OT Self-Feeding Comments Not meal time OT ADL-Grooming General Evaluation Grooming Ability Total Assistance Areas Needing Assistance Combing/Brushing Hair Comments OT Grooming Comments seated in chair OT ADL-Oral Care General Eval Oral Care Ability Moderate Assistance Areas of Assistance Brushing Teeth,Retrieving/Set- Up of Items Comments Oral Care Comments Pt brushed teeth seated in chair. She was able to take the top off of the tooth paste but then needed assist to get paste onto her tooth brush. Pt was able to brush her teeth but was unable to get cup to mouth and effectively sip water for washing out mouth without assist. OT ADL-Dressing Comments OT Dressing Comments Not performed OT ADL-Toileting Comments OT Toileting Comments Not performed OT ADL-Bathing Comments OT Bathing Comments Not performed M5 OT- IP IADL's Start: 02/11/20 15:03 Freq: Status: Active Protocol: Document 02/11/20 15:03 CGR (Rec: 02/11/20 15:16 CGR [id number]) OT-Instrumental Activities of Daily Living Deficits IADL Deficits Identified Deficits Home Safety Awareness Awareness of Need for Assistance at Home Decreased Awareness Ability to Problem Solve Emergency Unable to Problem Solve Situations Medication Management Medication Management Caregiver Administers Money Management Money Management Caregiver Provides Assistance Meal Preparation Meal Preparation Caregiver Provides Assist Medical Records Custodian Medical Records Custodian Caregiver Provides Assist Driving Driving Comments Pt does not drive M6 OT- IP Functional Cognition Start: 02/11/20 15:03 Freq: Status: Active Protocol: Document 02/12/20 13:05 CGR (Rec: 02/12/20 13:16 CGR [email or web address]) Cognitive Factors Limiting Selfcare Function Cognitive Ability Level of Alertness Alert,Confusional State,Drowsy Patient Orientation Name,Month,Date,Place Attention Span Ability Capable of Focused Attention, Unable to Sustain Attention Ability to Follow Commands Able to Follow One Step Commands with Increased Time, Able to Follow One Step Commands with Repetition Cognitive Comments Cognitive Assessment Comments Pt is more awake today during session but still confused. OT- Vision and Hearing OT- Hearing Assessment OT- Hearing Assessment WFL OT- Vision Assessment Visual Acuity WFL M7 OT- IP Mobility and Balance Start: 02/11/20 15:03 Freq: Status: Active Protocol: Document 02/12/20 13:05 CGR (Rec: 02/12/20 13:16 CGR [email or web address]) OT-Transfer Assessment Sit to and From Stand Sit to and from Stand Maximum Assistance,1 Person Assistance Devices Transfer Assistive Devices Gait Belt,Front Wheeled Walker Comments Mobility Comments Pt attempting to stand from chair for ADLs at sink dispite instructions that we would perform ADLs from chair. Pt was able to scoot forward in chair but was not able to clear buttox from chair with max x 1. Pt agreeable then to performing ADLs from chair but needed max x 2 for scooting back in chair. OT- Balance Assessment Sitting Balance and Reactions Static Sitting Balance Ability Fair M8 OT- IP Objective Assessments Start: 02/11/20 15:03 Freq: Status: Active Protocol: Document 02/11/20 15:03 CGR (Rec: 02/11/20 15:16 CGR [id number]) OT Gross Range of Motion Upper Extremity Range of Motion Assessment Within Functional Limits OT Strength Upper Extremity Strength Assessment Bilaterally Impaired Comments Strength Comments Pt with profoundly poor strength OT- Coordination Assessment Upper Extremity Finger to Nose Test Bilateral UE Impaired Finger Tapping Test Bilateral UE Impaired OT Sensation Assessment Edema Edema Present Edema Comments Pt with pitting edema to BUE M9 OT- IP Assessment and Plan Start: 02/11/20 15:03 Freq: Status: Active Protocol: Document 02/12/20 13:05 CGR (Rec: 02/12/20 13:16 CGR [email or web address]) OT Summary Assessment and Plan Potential Rehabilitation Potential Fair Analytic Complexity at Evaluation Moderate Summary OT Impairments Strength,Balance,Coordination, Functional Cognition, Functional Mobility,Self- Feeding,Grooming,Dressing, Toileting,Bathing,Toilet Transfers,Shower Transfers, Activity Tolerance Progress Towards Goals Slow Progress due to Medical Issues Assessment Summary Pt presents as a moderate complexity evaluation s/p admit for respiratory failure. Pt is currently profoundly weak and lethargic with fair participation in OT session. Pt is likely to progress as her respiratory state improves . Recommend d/c to SNF Goals Self-Feeding Goal Independent Grooming Goal Independent Dressing Goal Independent Toileting Goal Independent Bathing Goal Independent Toilet Transfer Goal Independent Shower Transfer Goal Independent Days to Meet Goals 30 Frequency of Treatment Frequency Of Treatment Once a Day Treatment Plan OT Treatment Plan ADL Training,Functional Cognition Training,Functional Mobility,Patient/Family Education,Discharge Planning Other Treatment Recommendations and Next ADLs as able. Treatment Focus Discharge Recommendations OT Discharge Recommendations SNF Rehab Home Equipment Needs TBD Transportation Needs at Discharge Wheelchair/Cabulance
[2020-02-12] MEDS: FUROSEMIDE 40 MG/4 ML VIAL IV (10:57)
--- NOTE | 2020-02-12 11:41 | ST.IPTN ---
Visit Care Team Role Provider Type Josue Menchaca DO Primary Care Provider Non-Staff Address: [address] [place] [address], [phone] Marleny Stokes DO Emergency Provider Physician Referring Provider Address: [address] [place] [address], [id number] Holly Dougherty MD Admit Provider Physician Attending Provider Address: [address] [place] [address], [id number] HYDROELECTRIC POWERPLANT SUPERVISOR Treatment Note HYDROELECTRIC POWERPLANT SUPERVISOR Treatment Note Start: 02/11/20 12:25 Freq: Status: Active Protocol: Document 02/12/20 11:16 MG (Rec: 02/12/20 11:41 MG [id number]) Speech Pathology Treatment Note Session Time Visit Start Time 10:35 Visit Stop Time 11:10 Total Visit Minutes 35 Visit Information Visit Number 2 Setting Treatment Setting Acute Care Visit Type Note Type Treatment Note Next Note Type Next Note Type Treatment Note General Information General Information Leyda Nielsen is an 80-year-old female with chronic respiratory failure, atrial fibrillation, congestive heart failure, morbid obesity who fell and injured her back. She is on Pradaxa and had a significant contusion. She was evaluated in the emergency department where she was given 2 mg of IV morphine yesterday morning. She underwent a CT scan scan of her spine which was negative for any acute hematoma infection acture. The patient then had a delayed response and presented back to the hospital and acute respiratory failure. Patient has known obstructive sleep apnea for which she takes CPAP. She is also C diff positive and currently under treatment with oral vancomycin. She has a history of diabetes COPD and anemia. The patient was intubated in the emergency department. By report her pCO2 was greater than 100. She was acidotic with pH of 6. 9. Patient was given propofol in the emergency department for sedation and became hypotensive. She required norepinephrine for pressure support. Patient is now in the intensive care unit. Following extubation swallowing assessment was ordered to determine pt safety with PO intake. Diet order of NTL/Puree was recommended at that time. Continued monitoring to advance diet was proposed as pt became more alert. Subjective Identification Type Name,ID Wristband Observations/Patient Presentation Pt was seen sitting in chair next to bedside. Pt had nasal cannula; was using Trilogy earlier. Per nurse and OT, pt is more alert today as well as observed less confusion compared to yesterday. Pt appeared tired as observed by resting her head on her hand and keeping eyes closed. HYDROELECTRIC POWERPLANT SUPERVISOR could arouse pt to proceed with continued swallow therapy . Chief Complaint(s) Swallowing Additional Areas of Concern Possible aspiration due to fatigue, confusion, intubation Patient Knowledge/Awareness of HYDROELECTRIC POWERPLANT SUPERVISOR Role Fair in Treatment Parent/Caretake Knowledge/Awareness of Fair HYDROELECTRIC POWERPLANT SUPERVISOR Role in Treatment Patient/Caregiver Compliance with Home Fair Exercise Program Objective [facility] Goals Pt will safely tolerate the least restrictive diet needed to meet nutrition and hydration needs without s/sx aspiration. Treatment Activities Pt needed moderate cueing to take sips/bites of liquids/ solids. Laryngeal palpation indicated continued mild weakness in the pharyngeal phase of swallowing. On tsp thin, pt presented with a delayed throat clear. On all trials of NTL (tsp, small cup sip) pt did not demonstrate overt s/sx of aspiration. On trials of puree solids, pt again did not demonstrate overt s/sx of aspiration. On trials of dysphagia mechanical , pt demonstrated delayed semi -weak cough that produced saliva. Pt reported that she did not want to do more and was very tired. Due to pt safety concerns and obvious fatigue, all trials were discontinued at that time. Assessment Patient Response to Treatment Fair Rehab Potential Fair Impairments Identified Dysphagia Additional Impairments Identified Fatigue Progress Towards Goals Slow Progress Assessment of Overall Progress Unchanged Assessment of Improvement Pt would benefit from continued f/u with speech therapy for further education and assessment of swallow to determine safest diet for the pt. Reviewed with Patient Goals Patient/Caregiver Understanding Fair Plan Treatment Emphasis Next Session Continue to monitor diet and make adjustments as needed. Therapeutic Contents Swallowing/Feeding Therapy Recommendations Continue with Current Program
--- NOTE | 2020-02-12 12:34 | PT-IP ANOTE ---
checked on pt in an attempt to do PT eval. Pt standing up using FWW with 2 nurses in room and in the middle of pt transferring to use bedside commode. Nurses instructing pt to take steps to turn to the bedside commode but pt stated that she cannot and that she is going to fall. I tried to get to a position to assist nurses when pt just let go and not trying to hold herself up and with both eyes closed but able to talk and gives instructions to nurses. 2 nurses where holding pt up. positioned sling under pt and mechanically lift pt on to chair first. sling repositioned and assist pt to bed. positioned pt in bed. pt continues to have her eyes closed all throughout but able to talk. Pt at this time is not alert enough to participate in PT and nurse agreed. PT to f/u tomorrow.
--- NOTE | 2020-02-12 15:13 | PT-IP ANOTE ---
nurse came in and informed PT that pt is not awake and wanting to use the toilet and if PT wants to do eval. Came in to see pt for eval. initiating set up but during set up, pt stated that she just wants to use the bed andrew and does not want to get out of the bed. pt refused PT stated that she is tired. will f/u arturo.
--- NOTE | 2020-02-12 15:28 | CM.DPNOTE ---
DCP Cont According to Dr Corbett, patient has made great improvement over the last 24 hrs and may be medically stable to DC in approx 48hrs. Dr Corbett has discussed short term vs intermediate plan for patient w/son Abdulaziz, who has joint DPOA w/his sister Db. According to Dr Corbett, son Abdulaziz and dtr Db (and other family members) now discussing paying privately for SNF to give patient an opportunity to regain some strength before possibly returning home w/in home cgs and hospice service. Patient more awake, alert today although remains lethargic and difficult to understand d/t steady use of Trilogy machine. Placed call to Franny at [facility], asked if they had heard anything from patient's family re: arranging payments for patient's stay there ? Franny had only a note from August stating family aware of approx $11,000 out of pocket/amount down needed and still hadn't made a decision. This [employer] unable to contact patient's family d/t caseload demands. Will request incoming DC systems requirements planner to follow up to assist in coordination of safe DCP for this patient, deemed unsafe to return home at this time unless family had around the clock care w/ HH vs Hospice service. JACKELIN Cabello
--- NOTE | 2020-02-12 16:17 | PM.PN.1 ---
Subjective Subjective Date Patient Seen: 02/12/20 Interval history: Leyda Nielsen is a 80-year-old female with a past medical history significant for paroxysmal atrial fibrillation on Eliquis, diastolic CHF, chronic hypoxemic and hypercarbic respiratory failure secondary to OHS, JEANIE, COPD and morbid obesity and plaque psoriasis who presented to ED after receiving morphine in the ED earlier in the day for a ground level fall with low back hematoma and back pain with delayed response which resulted in acute hypoxemic and hypercarbic respiratory failure status post intubation. The patient is resting in bed comfortably. Patient is awake and alert. Discuss code status which patient is firm on DNR/DNI and goals of care for which the patient would like to go on hospice. Discussed whether the patient would want to go to correction facility prior to discharge to home which the patient and her family are discussing. Continue trilogy while napping and sleeping today. Continue IV diuresis. Patient is voiding via Willoughby catheter and limiting without difficulty. Ordered PT and OT. Exam Vital Signs (past 8 hours): - 02/12/20 16:00 02/12/20 17:55 02/12/20 19:25 Temperature 97.4 F L Pulse Rate 52 L 97 H Respiratory Rate 20 16 Blood Pressure 107/62 Pulse Oximetry 92 98 02/12/20 19:35 02/12/20 20:06 Temperature 96.9 F L Pulse Rate 56 L 66 Respiratory Rate 18 Blood Pressure 109/63 109/63 Pulse Oximetry 97 Fraction of Inspired Oxygen 0.6 Oxygen Delivery Method Mechanical Ventilation Oxygen Flow Rate 5 Narrative Exam Narrative: General: Elderly female lying in bed and in no acute distress, well-developed, well-nourished, appears chronically, weak and frail, appropriately interactive. HEENT: Normocephalic, atraumatic. External ears without defect. Pupils equal, round, and reactive to light. Anicteric sclerae, moist conjunctivae, and no lid lag. Neck: Supple with full range of motion. No jugular venous distension. No lymphadenopathy or thyromegaly. Cardiovascular: Heart sounds distant but appears to be irregularly irregular without murmurs, rubs, or gallops appreciated. Pulmonary: Diminished throughout but clear in anterior lung simons without crackles, wheezes, or rhonchi. Abdomen: Soft, obese, bowel sounds present, appears nontender, nondistended. Back: Large stable hematoma at low thoracic and upper lumbar region at center of spine. Genitourinary: Willoughby catheter in place. Extremities: No clubbing or cyanosis. Anasarca resolved. [id number] pitting and lymphedema to knees bilaterally. Bilateral stasis dermatitis. Skin: Normal temperature, turgor, and texture; no rash, ulcers, or subcutaneous nodules appreciated. Neurological: Cranial nerves grossly intact. Psychiatric: Normal mood and affect. Alert and oriented to person, place and time. No confusion. Objective Labs Result Diagrams: 02/13/20 14:45 02/13/20 14:45 Labs: Laboratory Results - last 24 hr 02/12/20 02/12/20 02/12/20 04:30 04:30 04:30 WBC 7.1 RBC 3.12 L Hgb 9.5 L Hct 30.3 L MCV 97.1 MCH 30.5 MCHC 31.4 RDW 16.7 H Plt Count 304 Neut % (Auto) 76.6 H Lymph % (Auto) 9.2 L [place] % (Auto) 11.1 Eos % (Auto) 2.8 Baso % (Auto) 0.3 Neut # (Auto) 5400 Lymph # (Auto) 700 L [place] # (Auto) 800 Eos # (Auto) 200 Baso # (Auto) 0 Sodium 133 L Potassium 4.2 Chloride 96 L Carbon Dioxide 37 H BUN 16 Creatinine 0.71 Estimated GFR > 60.0 BUN/Creatinine Ratio 22.5 H Glucose 86 Calcium 9.8 Magnesium Total Bilirubin 0.6 AST 36 ALT 14 Alkaline Phosphatase 144 H Total Protein 6.1 L Albumin 3.1 L Globulin 3.0 Albumin/Globulin Ratio 1.0 Procalcitonin 0.45 02/12/20 04:30 WBC RBC Hgb Hct MCV MCH MCHC RDW Plt Count Neut % (Auto) Lymph % (Auto) [place] % (Auto) Eos % (Auto) Baso % (Auto) Neut # (Auto) Lymph # (Auto) [place] # (Auto) Eos # (Auto) Baso # (Auto) Sodium Potassium Chloride Carbon Dioxide BUN Creatinine Estimated GFR BUN/Creatinine Ratio Glucose Calcium Magnesium 1.8 Total Bilirubin AST ALT Alkaline Phosphatase Total Protein Albumin Globulin Albumin/Globulin Ratio Procalcitonin Assessment & Plan Assessment & Plan narrative: Leyda Nielsen is a 80-year-old female with a past medical history significant for paroxysmal atrial fibrillation on Eliquis, diastolic CHF, chronic hypoxemic and hypercarbic respiratory failure secondary to OHS, JEANIE, COPD and morbid obesity and plaque psoriasis who presented to ED after receiving morphine in the ED earlier in the day for a ground level fall with low back hematoma and back pain with delayed response which resulted in acute hypoxemic and hypercarbic respiratory failure status post intubation. 1. Acute on chronic hypoxemic and hypercarbic respiratory failure, present on admission. Acute portion resolving. -Patient presented with acute on chronic respiratory failure following administration of morphine in the ER for large back hematoma with back pain. By report patient has delayed response to morphine and has been intubated multiple times in the past. Patient's chronic respiratory failure is multifactorial and secondary to obesity hypoventilation syndrome, JEANIE, and COPD. -Patient was successfully extubated 02/09 to BiPAP and later home trilogy. Continue Trilogy while napping or sleeping. Continue supplemental oxygen as necessary to maintain oxygen saturations 88-92%. DO NOT want to over ventilate patient as this will precipitate hypercarbia. 2. Diastolic congestive heart failure now with exacerbation, chronic, present on admission. Resolving. -Previous echocardiogram 07/2019 demonstrated normal left and right systolic ventricular function. -Initial proBNP of 4530. -Continue home carvedilol 6.25 mg twice daily. -Continue strict I&Os and daily weights. Net +3L. -Patient became anasarcic from IV fluids and drips and now resolving with diuresis. Continue furosemide 40 mg IV daily. 3. Probable acute aspiration pneumonia, present on admission. Resolving. -Secondary to hypercarbia which likely led to aspiration event. -Chest x-ray demonstrated possible pneumonia. Given elevated procalcitonin at 5.41 and acute respiratory failure requiring intubation the patient was started on Unasyn for presumed aspiration event. Procalcitonin trending down. Respiratory panel negative. -Continue Unasyn 3 g every 8 hours x 7 days to stop 02/13. 4. Elevated troponin, secondary to demand ischemia present on admission. Resolved. -Suspect demand ischemia related to hypotension from sedation during her episode of acute respiratory failure and possibly acute blood loss. -EKG did not demonstrate any acute ischemic changes such as ST elevation or depression. -Initial troponin 0.056 and peaked at 0.93. Troponin trended down 0.083. No need to further trend. 5. Acute blood loss anemia after ground level fall with large back hematoma and back pain, on chronic anemia, present on admission. Acute portion resolved. -Acute portion secondary to ground level fall with large hematoma on back and chronic portion due to anemia of chronic disease. -Held Eliquis. Received 1 U PRBC with improvement to 8.1. -Initial hemoglobin 8.4. Baseline hemoglobin 8-9. Hemoglobin dropped to 7.3 and VTE prophylaxis with enoxaparin was held and received 1U PRBC with appropriate compensation hemoglobin 8.1. Hemoglobin improving now 9.5 and hematoma stable. Restarted and continue Eliquis 5 mg twice daily. Transfusion goal hemoglobin < 7.0. -Continue to monitor H&H daily. 6. Paroxysmal atrial fibrillation on Eliquis, chronic, present on admission. Stable. -Eliquis initially held due to recent GLF with large back hematoma. Restarted and continue Eliquis 5 mg twice daily. -Continue home carvedilol 6.25 mg twice daily. 7. Recent recurrent C. difficile infection. -Patient was previously on oral vancomycin which was recently restarted at correction facility on 02/02/20. Continue for 10 days to stop today 02/12/20. No episodes of diarrhea since admission. 8. GERD, chronic, present on admission. Stable. -Given history of recurrent C. difficile infection will discontinue PPI. -Continue famotidine 20 mg twice daily for acid reflux. 9. COPD, chronic, present on admission. Stable. -Does not represent acute COPD exacerbation. -Continue home Spiriva and Symbicort with hospital formulary medications. 10. Gout, chronic, present on admission. Stable. -Continue home allopurinol 100 mg twice daily. 11. Morbid obesity, chronic, present on admission. Stable. -BMI 52. -Patient has increased risk of complications due to her morbid obesity. Patient's obesity also causes hypoventilation leading to significant respiratory failure in combination with narcotics that suppress her respiratory drive. -Ordered dietitian consult, pending. 12. Psoriasis, chronic, present on admission. Stable. -Patient previously on Humira which caused significant lower extremity infection and has been discontinued indefinitely. -Discontinued prednisone 4 mg daily presumably for plaque psoriasis? Continue to monitor for signs of adrenal insufficiency. Code status: Full code, surrogate decision maker is her daughter VTE prophylaxis: Eliquis Disposition: Patient likely to discharge at the correction facility for continued rehabilitation then home with hospice versus home with hospice .
[2020-02-12] MEDS: MONTELUKAST 10 MG TABLET PO (16:36)
--- NOTE | 2020-02-12 17:22 | PC.NURSE ---
Addendum entered by Pam Davis R.N. 02/12/20 21:19: Pt continues to refuse repositioning, just wants to be left alone. All needs met at this time, bed low and locked, call light within reach, will continue to treat and monitor as ordered until report is given to oncoming [facility] shift nurse. Original Note: Evening shift note: Pt currently refusing turning and food, states she just wants to be left alone. Bed low and locked, call light within reach, will continue to monitor
--- NOTE | 2020-02-12 18:10 | PC.NURSE ---
1715- Pt refused dinner and repositioning.
[2020-02-12] MEDS: carvediloL 3.125 MG TABLET 6.25 MG PO (20:06)
[2020-02-12] MEDS: FAMOTIDINE 20 MG TABLET PO (20:07)
[2020-02-12] MEDS: LATANOPROST 0.005% OPHTH 2.5 ML 1 DROPS EYE-BOTH (20:09)
[2020-02-13] VITALS (12 sets, daily range): BP systolic 97–130; BP diastolic 49–60; PULSE 52–72; RESP 16–22; TEMP 36.3–36.6; O2SAT 64–96
[2020-02-13] MEDS: AMPICILLIN/SULBACTAM 3 GM 3 GM in SODIUM CHLORIDE 0.9% 100 ML IV ×3 (00:35→16:51)
[2020-02-13] MEDS: BUDESONIDE 0.5 MG/2 ML NEB INH ×2 (05:44→18:53)
[2020-02-13] MEDS: ALBUTEROL/IPRATROPIUM 3 ML AMPUL INH ×2 (05:44→18:52)
--- NOTE | 2020-02-13 06:08 | PC.NURSE ---
slot shift manager note: Patient on/off Trilogy machine throughout shift, with longest break of 15 minutes. Patient has not wanted to turn in the bed by staff memberss, but has been able to turn slightly by shifting weight independently. VSS, 3-4 L on NC, 5L bleed in on Trilogy machine with sats ranging from 88-94%. Patient has remained disoriented throughout shift with brief periods of lucidness. Call light in reach, will continue to monitor.
[2020-02-13] MEDS: FERROUS SULFATE 325 MG TABLET PO (08:29)
[2020-02-13] MEDS: ACETAMINOPHEN 325 MG TABLET PO ×2 (08:29→20:31)
[2020-02-13] MEDS: allopurinoL 100 MG TABLET PO ×2 (08:30→20:32)
[2020-02-13] MEDS: APIXABAN 5 MG TABLET PO ×2 (08:30→20:32)
[2020-02-13] MEDS: FLUoxetine 10 MG CAPSULE PO (08:31)
[2020-02-13] MEDS: FUROSEMIDE 40 MG/4 ML VIAL IV (08:32)
[2020-02-13] MEDS: carvediloL 3.125 MG TABLET 6.25 MG PO (09:32)
[2020-02-13] MEDS: NYSTATIN POWDER 15GM 1 APPLIC TOP ×2 (09:35→20:33)
--- NOTE | 2020-02-13 11:48 | PC.NURSE ---
SHIFT SUMMARY: LATE ENTRY: LUNGS DIMINISHED THROUGHOUT WITH POOR AERATION, PATIENT UP TO RECLINER THIS AM, HAD WATERY STOOL TO BLUE FABRIC CHUX UNDER PATIENT. COMPLETE BED BATH PROVIDED, NYSTATIN TO SKIN FOLDS AND BOTTOM WHICH HAS ERYTHEMIC RASH WITH SATELLITE LESIONS CONSISTENT WITH YEAST PRESENTATION. 2P DANA TO RECLINER WITH LEGS ELEVATED. WHEN THIS MOBILE HEAVY EQUIPMENT OPERATOR CAME ON, SAT 99% ON 5L/NC. WEANED DOWN TO 3L/NC W/ SAT 96%. PATIENT HAD URGE FOR BM, 2P DANA TO COMMODE, SMALL SOFT STOOLS, CLEANSED, DRIED, AND NYSTATIN REAPPLIED. PATIENT ASSISTED BACK TO BED PER HER REQUEST TO TAKE A NAP. TRILOGY ADMINISTERED W/ 6L BLEED IN PER RT VERBAL CONFIRMATION WITH SAT 92%. PATIENT APPEARS COMFORTABLE AT THIS TIME.
--- NOTE | 2020-02-13 12:03 | CM.DPC ---
Addendum entered by Vicky Childress R.N. 02/13/20 12:25: Spoke with [facility] nurse- they can potentially do info visit on the phone tomorrow and start as soon as friday. they will have the ability to deliver equipment to the home as soon as Friday if hospice plan is determined by the family. [facility] will call Friday to determine if family will need info visit or not. [phone]. Vicky Childress Rn Original Note: DCP continued: EMR reviewed: CM spoke with patients daughter Db who is DPOA along with brother Abdulaziz who is in [place]. Cm explained that patient needs a finalized D/C plan since we plan on D/C her in Friday or Friday. Patients daughter Db stated understanding and will have final choice by Friday. between [facility] private pay of $11,000.00 and home with HH at first and hospice to start. patient lives in [place] With patients daughters permission CM called melissa at [facility] and she stated they still have female beds available and will be able to accept patient if the family chooses that route. she will need a new COVID test prior to admission. CHARLINE also Called [facility] and left message for the network operations specialist nurse [phone] - waiting for a call back....to see what the wait time is for hospice start and to see about equipment like a hospital bed which patient will need prior to d/C home. D/C plan Home with Hospice vrs private pay [facility]. need final choice friday family knows. Vicky Childress RN
--- NOTE | 2020-02-13 14:55 | PT.IIE ---
Current Diagnoses Acute and chronic respiratory failure with hypercapnia (02/06/20) Surgical History (Last Reviewed 02/06/20 @ 17:54 by Holly Dougherty MD) History of incision and drainage (2019) Medical History (Last Reviewed 02/06/20 @ 17:54 by Holly Dougherty MD) Anemia Atrial fibrillation Cardiomegaly Congestive heart failure COPD (chronic obstructive pulmonary disease) Depression Diabetes Hospitalization or health care facility admission within last 6 months Hypercapnic respiratory failure (07/2019) JEANIE on CPAP Osteoarthritis PAF (paroxysmal atrial fibrillation) Pulmonary hypertension Ulcerative colitis Physical Therapy Inpatient Evaluation/Re-Eval M1 PT/OT-IP Prior Functional Status Start: 02/11/20 12:08 Freq: NEEDED Status: Active Protocol: Document 02/13/20 14:50 AW (Rec: 02/13/20 16:45 AW [id number]) Medical Review Prior Functional Status Medical History Reviewed Yes Communication Per OT note: Pt is very lethargic. Daughter provided social hx and PLOF. Per EMR, pt was able to make needs known in December 2019. [employer] provided additional information over phone. Mobility and Gait Modified IND with FWW for home amb. Pt has very limited amb distance and usually doesn't leave the house. Most recently , pt has been in SNF, where her amb distance was limited to ~20 ft. Pt gets SOB very quickly. Activities of Daily Living and IADL's IND for all ADLs with set-up assistance per [employer]. Social History Household Members none Living Arrangements Skilled Nurse Facility Number of Floors (Floors) Two Floors Number of Stairs To Enter/Railing? Pt has chair lift and does not have to perform any steps to enter. Pt stays on the main/upper level which she accesses via chair lift.. Home Environment Standard Height Toilet,Walk in Shower Home Equipment Front Wheel Walker,Raised Toilet Seat w/Armrests,Shower Seat with Backrest,Long Handled Sponge,Long Handled Shoe Horn,Cuffer,Sock Aid, Grab Bars In Shower Employment Status Unknown Additional Social History Comment Pt's daughter is not sure whether the shower seat has backrest or not. 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 Family lives in [place], who will be available to help if needed but they work full-time. M2 PT-IP Current Condition Start: 02/11/20 12:08 Freq: NEEDED Status: Active Protocol: Document 02/13/20 14:50 AW (Rec: 02/13/20 16:45 AW [id number]) Physical Therapy Current Condition Current Condition Evaluation Date 02/13/20 Treatment Diagnosis acute on chronic respiratory failure; difficulty in walking Onset Date 02/06/20 M3 PT-IP Subjective Start: 02/11/20 12:08 Freq: NEEDED Status: Active Protocol: Document 02/13/20 14:50 AW (Rec: 02/13/20 16:45 AW [id number]) Subjective Physical Therapy Visit Type Type Initial Evaluation Visit Start Time 14:09 Visit Stop Time 14:45 Total Visit Minutes 36 Notes Respiratory status is hypoxic and hypercapneic. SpO2 target is 88-92%. Physical Therapy Visit Comments Patient Comments I don't know if I can do this today. Therapy Pain Assessment Pain When Pain Assessed At Rest Pain Present Pain Present Pain Reported Location Bilateral Lower Leg Intensity 6 Scale Used right greater than left Back Scale Used not quantified M4 PT-IP Mobility and Gait Start: 02/11/20 12:08 Freq: NEEDED Status: Active Protocol: Document 02/13/20 14:50 AW (Rec: 02/13/20 16:45 AW [id number]) PT-Bed Mobility Assessment Rolling Type of Rolling Bilateral Level of Assist Minimal Assistance,1 Person Assistance Supine to Sit Supine to Sit Moderate Assistance,1 Person Assistance,Head of Bed Elevated,Bedrails Sit to Supine Sit to Supine Total Assistance,2 Person Assistance Scooting Scooting to Edge of Bed Maximum Assistance Scooting Up and Down in Bed Dependent PT-Transfer Assessment Sit to and From Stand Sit to and from Stand Maximum Assistance,2 Person Assistance,Use of Upper Extremities Equipment Transfer Assistive Device Gait Belt,Front Wheeled Walker Orthotic/Prosthetic Devices or Brace: No Comments Mobility Comments Pt was lying in the bed as PT arrived. RN replaced trilogy unit with nasal cannula with flow rate 3L/min. SpO2 was 93% . With HOB at 30 degrees, pt completed supine to sit mod A x 1 with heavy use of the bedrails to pull up to sitting . Pt tolerated sitting EOB but requested the FWW to be set in front of her so she could rest her forearms and lean forward in order to increase accessory muscle breathing efficiency. SpO2 ranged 87-91% during mobility with pt easily becoming SOB. Pt sat ~5 minutes before recovering her breathing and attempting to stand. With max 2PA, pt cleared her buttocks from the bed and attempted to extend her hips but needed to sit back down. Pt requested bed be raised ~2 inches. After another rest break, pt shifted her weight over her feet and cleared her hips three more times before standing on the fourth attempt with max 2PA. Pt stood 5 seconds before needing to sit again. SpO2 remained in the 87-91% range. Pt was sitting near the foot of the bed. PT and RN asked pt if she could stand and take side steps toward HOB but pt complained of SOB, bilateral leg pain, and exhaustion. Pt agreed she could stand while RN moved the bed behind her. Pt stood with max 2PA and FWW. Once standing with hips extended, pt was able to stand ~30 seconds as RN moved the bed. Pt then sat with poorly- controlled descent and required total assist to return to supine and for scooting up in the bed. Pt was left with nursing attending. Gait Assessment Comments Gait Comments Pt unable at this time. Stair Climbing Assessment Comments Stair Climbing Comments Not assessed. Pt has chair lift for stairs at home. PT-Balance Assessment Sitting Balance and Reactions Static Sitting Balance Ability Fair Dynamic Sitting Balance Ability Poor Standing Balance and Reactions Static Standing Balance Ability Poor Device Used FWW M5 PT-IP Objective Assessments Start: 02/11/20 12:08 Freq: NEEDED Status: Active Protocol: Document 02/13/20 14:50 AW (Rec: 02/13/20 16:45 AW [id number]) Orientation Orientation/Cognition Level of Alertness Lethargic Orientation Name,Day of Week,Place, Situation Language Function Ability No Deficits Noted Safety Awareness Decreased Safety Awareness Memory Description No Deficits Noted Gross Range of Motion Lower Extremity ROM Assessment Bilaterally Impaired Impairments AROM limited due to habitus. Strength Lower Extremity Strength Assessment Bilaterally Impaired Comments Strength Comments BLE grossly 3/5 to 3+/5 Sensation Assessment Sensation Gross Sensation Right LE Impaired,Left LE Impaired Light Touch Impaired Sensation Description Paresthesia,Pain Muscle Tone Muscle Tone WNL Yes M6 PT-IP Treatment Start: 02/11/20 12:08 Freq: NEEDED Status: Active Protocol: Document 02/13/20 14:50 AW (Rec: 02/13/20 16:45 AW [id number]) Physical Therapy Treatment Education Education Provided Safety Other Treatments Other Treatment Performed Provided education on role of PT, plan of care, and energy conservation techniques. M7 PT-IP Assessment and Plan Start: 02/11/20 12:08 Freq: NEEDED Status: Active Protocol: Document 02/13/20 14:50 AW (Rec: 02/13/20 16:45 AW [id number]) PT Summary Assessment and Plan Potential Rehabilitation Potential Fair Status of Condition at Evaluation Evolving Summary Impairments Pain,ROM,Strength,Balance, Sensation,Bed Mobility, Transfers,Gait,Activity Tolerance Assessment Summary Leyda is an 80 yo woman admitted with acute on chronic respiratory failure. She has has a hospital course including several days on ventillator. She was extubated on 02/10/20. She is typically modified independent with use of FWW for household distance ambulation. She was hospitalized with osteomyelitis in early December 2019 and has been at SNF rehab since that time. She fell at SNF on the day she was to discharge which precipitated this admission. On evaluation, pt required max assist of 1-2 people for bed mobility and sit to stand. Her respiratory reserve is quite limited, leading to reduced activity tolerance. Return to SNF would be optimal in her case in order to gain strength and build functional reserve for hopeful and eventual return to home. Goals Bed Mobility Goal Standby Assistance Transfer Goal Minimal Assistance,Front Wheeled Walker Gait Goal Minimal Assistance,Front Wheel Walker Gait Distance 25 Days to Meet Goals 10 Frequency of Treatment Frequency Of Treatment Once a Day Treatment Plan Physical Therapy Treatment Plan Bed Mobility Training,Transfer Training,Gait Training, Therapeutic Exercise,Balance Retraining,Discharge Planning, Hot or Cold Pack,Neuromuscular Re-ed Other Recommendations and Next Treatment transfers, ambulation with FWW Focus if able. Recommendations To Nursing Amount of Assist Needed 2 Person Assist,3 or More Person Assist Discharge Recommendations PT Discharge Recommendations SNF Rehab
[2020-02-13 15:01] LABS: Add Manual Diff / Slide Review NO; Basophils Absolute Auto 0 /uL (0-100); Basophils Percent Auto 0.3 % (0-2); Eosinophils Absolute Auto 300 /uL (0-450); Hemoglobin 9.9 g/dL (12.0-16.0); Lymphocytes Absolute Auto 1000 /uL (1100-4500); Lymphocytes Percent Auto 13.8 % (25-40); Mean Corpuscular HGB Conc 31.9 % (30-36); Mean Corpuscular Hemoglobin 30.7 PG (26-34); Mean Corpuscular Volume 96.4 fL (80-100); Monocytes Absolute Auto 1000 /uL (0-900); Monocytes Percent Auto 13.8 % (3-14); Neutrophils Absolute Auto 4700 /uL (1500-7000); Neutrophils Percent Auto 68.1 % (50-75); Platelet Count 395 X10^3/uL (150-400); Red Blood Cell Count 3.22 X10^6/uL (4.0-5.2); Red Cell Distribution Width 16.2 % (11.6-14.8); White Blood Cell Count 6.9 X10^3/uL (4.5-11.0)
--- NOTE | 2020-02-13 15:01 | PC.NURSE ---
d/c tele per md order
[2020-02-13 15:19] LABS: BUN Creatinine Ratio 22.2 (6-22); Blood Urea Nitrogen 16 mg/dL (7-17); Calcium 9.6 mg/dL (8.4-10.2); Carbon Dioxide 38 mmol/L (22-32); Chloride 95 mmol/L (98-107); Estimated Glomerular Filt Rate > 60.0 mL/min (>60); Glucose 100 mg/dL (80-110); HEMOLYSIS < 15 (0-50); Magnesium 1.6 mg/dL (1.6-2.3); Sodium 134 mmol/L (137-145)
[2020-02-13 15:34] LABS: Procalcitonin 0.24 ng/mL (<0.5)
[2020-02-13] MEDS: MAGNESIUM CHLORIDE 64 MG TABLET 128 MG PO (16:51)
[2020-02-13] MEDS: MONTELUKAST 10 MG TABLET PO (16:51)
--- NOTE | 2020-02-13 17:04 | PM.PN.1 ---
Subjective Subjective Date Patient Seen: 02/13/20 Interval history: Leyda Nielsen is a 80-year-old female with a past medical history significant for paroxysmal atrial fibrillation on Eliquis, diastolic CHF, chronic hypoxemic and hypercarbic respiratory failure secondary to OHS, JEANIE, COPD and morbid obesity and plaque psoriasis who presented to ED after receiving morphine in the ED earlier in the day for a ground level fall with low back hematoma and back pain with delayed response which resulted in acute hypoxemic and hypercarbic respiratory failure status post intubation. The patient is resting in bed comfortably. The patient continues to improve although very weak and frail. Continue PT and OT. Continued to discuss disposition and whether the patient will go to halfway facility prior to home with hospice versus going straight home with hospice and the patient and her family are planning to discuss and make a decision. Continue trilogy while napping and sleeping. Continue IV diuresis. Patient is voiding via Willoughby catheter and limiting without difficulty. Patient is up with maximum assistance. Exam Vital Signs (past 8 hours): - 02/13/20 09:32 02/13/20 12:00 02/13/20 16:00 Temperature 97.6 F 97.8 F Pulse Rate 71 70 61 Respiratory Rate 18 17 Blood Pressure 130/60 109/55 L 97/49 L Pulse Oximetry 96 91 Fraction of Inspired Oxygen 0.6 Oxygen Delivery Method Nasal Cannula,CPAP Oxygen Flow Rate 4 Narrative Exam Narrative: General: Elderly female lying in bed and in no acute distress, well-developed, well-nourished, appears chronically, weak and frail, appropriately interactive. HEENT: Normocephalic, atraumatic. External ears without defect. Pupils equal, round, and reactive to light. Anicteric sclerae, moist conjunctivae, and no lid lag. Neck: Supple with full range of motion. No jugular venous distension. No lymphadenopathy or thyromegaly. Cardiovascular: Heart sounds distant but appears to be irregularly irregular without murmurs, rubs, or gallops appreciated. Pulmonary: Diminished throughout but clear in anterior lung simons without crackles, wheezes, or rhonchi. Abdomen: Soft, obese, bowel sounds present, appears nontender, nondistended. Back: Large stable hematoma at low thoracic and upper lumbar region at center of spine slightly improved. Genitourinary: Willoughby catheter in place. Extremities: No clubbing or cyanosis. Anasarca resolved. Mild pitting and lymphedema to pretibial area bilaterally. Bilateral stasis dermatitis. Skin: Normal temperature, turgor, and texture; no rash, ulcers, or subcutaneous nodules appreciated. Neurological: Cranial nerves grossly intact. Severe generalized weakness. Psychiatric: Normal mood and affect. Alert and oriented to person, place and time. Objective Labs Result Diagrams: 02/13/20 14:45 02/13/20 14:45 Labs: Laboratory Results - last 24 hr 02/13/20 02/13/20 02/13/20 14:45 14:45 14:45 WBC 6.9 RBC 3.22 L Hgb 9.9 L Hct 31.0 L MCV 96.4 MCH 30.7 MCHC 31.9 RDW 16.2 H Plt Count 395 Neut % (Auto) 68.1 Lymph % (Auto) 13.8 L [place] % (Auto) 13.8 Eos % (Auto) 4.0 Baso % (Auto) 0.3 Neut # (Auto) 4700 Lymph # (Auto) 1000 L [place] # (Auto) 1000 H Eos # (Auto) 300 Baso # (Auto) 0 Sodium 134 L Potassium 4.0 Chloride 95 L Carbon Dioxide 38 H BUN 16 Creatinine 0.72 Estimated GFR > 60.0 BUN/Creatinine Ratio 22.2 H Glucose 100 Calcium 9.6 Magnesium 1.6 Procalcitonin 0.24 Assessment & Plan Assessment & Plan narrative: Leyda Nielsen is a 80-year-old female with a past medical history significant for paroxysmal atrial fibrillation on Eliquis, diastolic CHF, chronic hypoxemic and hypercarbic respiratory failure secondary to OHS, JEANIE, COPD and morbid obesity and plaque psoriasis who presented to ED after receiving morphine in the ED earlier in the day for a ground level fall with low back hematoma and back pain with delayed response which resulted in acute hypoxemic and hypercarbic respiratory failure status post intubation. 1. Acute on chronic hypoxemic and hypercarbic respiratory failure, present on admission. Acute portion resolved. -Patient presented with acute on chronic respiratory failure following administration of morphine in the ER for large back hematoma with back pain. By report patient has delayed response to morphine and has been intubated multiple times in the past. Patient's chronic respiratory failure is multifactorial and secondary to obesity hypoventilation syndrome, JEANIE, and COPD. -Patient was successfully extubated 02/09 to BiPAP and later home trilogy. Continue Trilogy while napping or sleeping. Continue supplemental oxygen as necessary to maintain oxygen saturations 88-92%. DO NOT want to over ventilate patient as this will precipitate hypercarbia. 2. Diastolic congestive heart failure now with exacerbation, chronic, present on admission. Resolving. -Previous echocardiogram 07/2019 demonstrated normal left and right systolic ventricular function. -Initial proBNP of 4530. -Continue home carvedilol decreased again from 6.25 mg to 3.125 mg twice daily to avoid hypotension. -Continue strict I&Os and daily weights. Net +3L. -Patient became anasarcic from IV fluids and drips and now resolving with diuresis. Continue furosemide 40 mg IV daily. 3. Probable acute aspiration pneumonia, present on admission. Resolved. -Secondary to hypercarbia which likely led to aspiration event. -Chest x-ray demonstrated possible pneumonia. Given elevated procalcitonin at 5.41 and acute respiratory failure requiring intubation the patient was started on Unasyn for presumed aspiration event. Procalcitonin trending down. Respiratory panel negative. -Continue Unasyn 3 g every 8 hours x 7 days to stop 02/13. 4. Elevated troponin, secondary to demand ischemia present on admission. Resolved. -Suspect demand ischemia related to hypotension from sedation during her episode of acute respiratory failure and possibly acute blood loss. -EKG did not demonstrate any acute ischemic changes such as ST elevation or depression. -Initial troponin 0.056 and peaked at 0.93. Troponin trended down 0.083. No need to further trend. 5. Acute blood loss anemia after ground level fall with large back hematoma and back pain, on chronic anemia, present on admission. Acute portion resolved. -Acute portion secondary to ground level fall with large hematoma on back and chronic portion due to anemia of chronic disease. -Initial hemoglobin 8.4. Baseline hemoglobin 8-9. Hemoglobin dropped to 7.3 and VTE prophylaxis with enoxaparin was held. Received 1U PRBC with appropriate compensation hemoglobin 8.1. Hemoglobin improving now 9.9 and hematoma stable and improving. Restarted and continue Eliquis 5 mg twice daily. Transfusion goal hemoglobin < 7.0. -Continue to monitor H&H daily. 6. Paroxysmal atrial fibrillation on Eliquis, chronic, present on admission. Stable. -Eliquis initially held due to recent GLF with large back hematoma. Restarted and continue Eliquis 5 mg twice daily. -Continue home carvedilol decreased again from 6.25 mg to 3.125 mg twice daily to avoid hypotension. 7. Recent recurrent C. difficile infection. Resolved. -Patient was previously on oral vancomycin which was recently restarted at halfway facility on 02/02/20 and completed 10 day course on 02/12/20. No episodes of diarrhea since admission. 8. GERD, chronic, present on admission. Stable. -Given history of recurrent C. difficile infection will discontinue PPI. -Continue famotidine 20 mg twice daily for acid reflux. 9. COPD, chronic, present on admission. Stable. -Does not represent acute COPD exacerbation. -Continue home Spiriva and Symbicort with hospital formulary medications. 10. Gout, chronic, present on admission. Stable. -Continue home allopurinol 100 mg twice daily. 11. Morbid obesity, chronic, present on admission. Stable. -BMI 52. -Patient has increased risk of complications due to her morbid obesity. Patient's obesity also causes hypoventilation leading to significant respiratory failure in combination with narcotics that suppress her respiratory drive. -Ordered dietitian consult, pending. 12. Psoriasis, chronic, present on admission. Stable. -Patient previously on Humira which caused significant lower extremity infection and has been discontinued indefinitely. -Discontinued prednisone 4 mg daily presumably for plaque psoriasis? Continue to monitor for signs of adrenal insufficiency. Code status: Full code, surrogate decision maker is her daughter VTE prophylaxis: Eliquis Disposition: Patient likely to discharge tomorrow either to halfway facility for continued rehabilitation then home with hospice versus home with hospice.
--- NOTE | 2020-02-13 18:11 | PC.NURSE ---
Addendum entered by Pam Davis R.N. 02/13/20 18:22: Pt allowed this nurse and ROOM ATTENDANTS to reposition to left side, with trilogy mask on with 3L bleed in, no further needs at this time. Original Note: Evening shift note: A/Ox3, resting in bed on 3L NC, wants to be placed back on trilogy after eating 15% of dinner. Pt is refusing repositioning at this time, just wants to be left alone to sleep. Orders for telemetry discontinued today at 1500. Pt states no further needs at this time, will continue to monitor. Bed low and locked, call light within reach.
[2020-02-13] MEDS: FAMOTIDINE 20 MG TABLET PO (20:31)
[2020-02-13] MEDS: MELATONIN 3 MG TABLET PO (20:31)
[2020-02-13] MEDS: carvediloL 3.125 MG TABLET PO (20:31)
[2020-02-13] MEDS: LATANOPROST 0.005% OPHTH 2.5 ML 1 DROPS EYE-BOTH (20:32)
[2020-02-13] MEDS: SODIUM CHLORIDE 0.9% FLUSH 10 ML IV (20:33)
[2020-02-14] VITALS (8 sets, daily range): BP systolic 94–108; BP diastolic 48–56; PULSE 62–89; RESP 18–24; TEMP 36.1–36.5; O2SAT 89–96
[2020-02-14] MEDS: AMPICILLIN/SULBACTAM 3 GM 3 GM in SODIUM CHLORIDE 0.9% 100 ML IV (00:03)
[2020-02-14] MEDS: ALBUTEROL/IPRATROPIUM 3 ML AMPUL INH ×2 (04:17→13:29)
[2020-02-14] MEDS: BUDESONIDE 0.5 MG/2 ML NEB INH (04:17)
--- NOTE | 2020-02-14 06:17 | PC.NURSE ---
assistant shift supervisor note: Patient has remained on Trilogy machine (5L bleed in) for majority of the shift, despite ~20 minutes this AM, where she was placed on 3L NC. Patient confused at start of shift, but has had more lucidness as shift progressed. Patient voicing to this RN that she is confused on what to do after she leaves the hospital in reference to half-way facility versus going home. VSS throughout shift, tele d/c yesterday afternoon. Patient has allowed staff to turn and reposition patient every 2 hours, with exception to 0600 hour when patient wanted to remain on her back while on NC. Patient using cell phone at bedside, call light in reach. Will continue to monitor patient.
[2020-02-14] MEDS: ALBUTEROL 2.5 MG/3 ML NEB (ADULT) INH (08:41)
[2020-02-14] MEDS: carvediloL 3.125 MG TABLET PO (09:48)
[2020-02-14] MEDS: FLUoxetine 10 MG CAPSULE PO (09:48)
[2020-02-14] MEDS: allopurinoL 100 MG TABLET PO (09:48)
[2020-02-14] MEDS: FUROSEMIDE 40 MG/4 ML VIAL IV (09:48)
[2020-02-14] MEDS: APIXABAN 5 MG TABLET PO (09:48)
[2020-02-14] MEDS: FERROUS SULFATE 325 MG TABLET PO (09:48)
[2020-02-14] MEDS: ACETAMINOPHEN 325 MG TABLET PO (09:48)
[2020-02-14] MEDS: SODIUM CHLORIDE 0.9% FLUSH 10 ML IV (09:49)
[2020-02-14] MEDS: NYSTATIN POWDER 15GM 1 APPLIC TOP (09:49)
--- NOTE | 2020-02-14 11:24 | PM.DS.1 ---
History of Present Illness History of Present Illness Chief complaint: Respiratory failure Narrative: Mary Nielsen is an 80-year-old female with chronic respiratory failure, atrial fibrillation, congestive heart failure, 2 morbid obesity who fell injured her back. She is on Pradaxa and had a significant contusion. She was valued evaluated in the emergency department where she was given 2 mg of IV morphine this morning. She underwent a CT scan scan of her spine which was negative for any acute hematoma infection or fracture. The patient then had a delayed response and presented back to the hospital and acute respiratory failure. Patient has known obstructive sleep apnea for which she takes CPAP. She is also C diff positive and currently under treatment with oral vancomycin. She has a history of diabetes COPD and anemia. The patient was intubated in the emergency department. By report her pCO2 was greater than 100. She was acidotic with pH of 6.9. Patient was given propofol in the emergency department for sedation and became hypotensive. She required norepinephrine for pressure support. Patient is now in the intensive care unit on Versed and Ativan drip. She continues to be on Levophed which we are actively titrating downward. she is able to open her eyes. Patient is admitted to the hospital at this time for acute respiratory failure. Discharge Providers Provider Date of admission: 02/06/20 15:50 Discharge Date: 02/14/20 Primary care physician: Josue Menchaca DO Consults: 02/06/20 18:37 Consult to Respiratory Therapy Evaluate & Treat Comment: Physician Instructions: Evaluate and treat 02/06/20 18:54 Consult to Dietitian, Adult Routine Comment: Reason For Exam: pt intubated 02/11/20 09:24 Consult to Speech Therapy Evaluate & Treat Comment: extubated yesterday Physician Instructions: Evaluate and treat 02/11/20 09:25 Consult to Occupational Therapy Evaluate & Treat Comment: Physician Instructions: Evaluate and treat Consult to Physical Therapy Evaluate & Treat Comment: Physician Instructions: Evaluate and Treat Discharge provider: Holly Dougherty MD Summary Hospital Course Discharge Diagnosis: 1. Acute on chronic hypoxemic hypercarbic respiratory failure, secondary to a delayed reaction from morphine 2. Obstructive sleep apnea 3. Morbid obesity, contributing to obstructive sleep apnea and hypoventilation 4. Aspiration pneumonia 5. Hematoma 6. Blood loss anemia 7. Acute on chronic congestive heart, secondary to diastolic dysfunction 8. Paroxysmal atrial fibrillation 9. C diff colitis, resolved 10. COPD 11. Gout 12. Plaque psoriasis 13. Type 2 myocardial infarction, patient had a rise and fall of her troponin but no evidence of unstable coronary disease Hospital Course: Patient was admitted to the hospital for respiratory failure with hypercarbic findings. Her pCO2 on admission was 130. The patient had presented to the emergency room following a fall. She had a hematoma. Patient received IV morphine and had a delayed reaction. She required intubation for several days. Patient was found to have aspiration pneumonia was treated with 5 days of antibiotics. She also was found to have acute diastolic heart failure. She received IV Lasix for that. Patient was recently treated for C diff colitis. She completed her treatment during the hospital stay. She had an elevation of her troponin up 2.8 3 and then improved. This was felt to be type 2 myocardial infarction. Patient also had blood loss anemia associated with her fall and anticoagulation due to her paroxysmal atrial fibrillation. She made slow but steady progress. She was ultimately able to be extubated. She was significantly weekend and required PT and OT for maximum assistance. She ultimately was deemed appropriate for transfer to [facility] where she will continue rehabilitation. At the time of this dictation she is on 2 L of oxygen. Patient will continue on trilogy which she has been on previously. Willoughby catheter will be removed prior to discharge. Patient states she is tired as she was unable to sleep last night but in no distress. Patient was deemed appropriate to transfer to [facility]. Status at Discharge Cognitive/behavioral status at discharge: oriented Functional status at discharge: uses cane/walker Overall status at discharge: patient is not back to baseline Time Spent with Patient Time spent: Less than 30 minutes Exam Vital Signs (past 8 hours): - 02/14/20 04:00 02/14/20 04:27 02/14/20 05:55 Temperature 97.4 F L Pulse Rate 89 62 Respiratory Rate 22 18 Blood Pressure 108/56 L Pulse Oximetry 89 L 93 96 02/14/20 08:00 02/14/20 08:46 Temperature 97.6 F Pulse Rate 66 74 Respiratory Rate 22 20 Blood Pressure 106/53 L Pulse Oximetry 96 95 Fraction of Inspired Oxygen 0.6 Oxygen Delivery Method Nasal Cannula,BiPAP Oxygen Flow Rate 5 Narrative Exam Narrative: Obese female lying in bed in no obvious distress Lungs: Decreased breath sounds but clear to auscultation Cardiac exam regular rate and rhythm normal S1-S2 Abdomen: Soft nontender nondistended Extremities: 2+ pitting edema bilateral Willoughby catheter in place Objective Labs Result Diagrams: 02/13/20 14:45 02/13/20 14:45 Labs: Laboratory Results - last 24 hr 02/13/20 02/13/20 02/13/20 14:45 14:45 14:45 WBC 6.9 RBC 3.22 L Hgb 9.9 L Hct 31.0 L MCV 96.4 MCH 30.7 MCHC 31.9 RDW 16.2 H Plt Count 395 Neut % (Auto) 68.1 Lymph % (Auto) 13.8 L [place] % (Auto) 13.8 Eos % (Auto) 4.0 Baso % (Auto) 0.3 Neut # (Auto) 4700 Lymph # (Auto) 1000 L [place] # (Auto) 1000 H Eos # (Auto) 300 Baso # (Auto) 0 Sodium 134 L Potassium 4.0 Chloride 95 L Carbon Dioxide 38 H BUN 16 Creatinine 0.72 Estimated GFR > 60.0 BUN/Creatinine Ratio 22.2 H Glucose 100 Calcium 9.6 Magnesium 1.6 Procalcitonin 0.24 Discharge Assessment & Plan Assessment and Plan Assessment: 1. Acute on chronic hypoxemic hypercarbic respiratory failure 2. Aspiration pneumonia 3. Morbid obesity 4. Obstructive sleep apnea, obesity hypoventilation syndrome 5. COPD 6. Paroxysmal atrial fibrillation 7. Blood loss anemia 8. GERD 9. Acute on chronic diastolic heart failure 10. Recent C difficile colitis, now resolved Plan of Treatment: Discharge medications as prescribed The patient will be followed at [facility] for ongoing PT and OT She is DNR DNI will note that her record accordingly Discharge Plan Discharge Plan Patient Disposition: SNF Transfer to: [facility] Consult as needed: Dental, Hearing, Mental health, Podiatry and Vision Discharge orders & Medications Prescriptions: New nystatin [Nystop] 100,000 unit/gram Powder 1 applic topical BID Qty: 7 RF: 0 Continued latanoprost 0.005 % drops 1 drp ophthalmic (eye) BEDTIME RF: 0 montelukast 10 mg tablet 10 mg PO QPM RF: 0 fluoxetine 20 mg capsule 10 mg PO DAILY RF: 0 Spiriva Respimat 2.5 mcg/actuation mist 1 inh INHALATION DAILY RF: 0 Eliquis 5 mg tablet 5 mg PO BID RF: 0 acetaminophen 325 mg Tablet 500 mg PO BID RF: 0 melatonin 3 mg Tablet 3 mg PO BEDTIME PRN (Reason: Insomnia) RF: 0 ferrous sulfate 325 mg (65 mg iron) Tablet 325 mg PO DAILY RF: 0 fluticasone propion-salmeterol [Advair Diskus] 250-50 mcg/dose Blister With Device 1 inh INHALATION BID RF: 0 carvedilol 6.25 mg Tablet 6.25 mg PO BID RF: 0 allopurinol 100 mg Tablet 100 mg PO BID RF: 0 pantoprazole 40 mg Tablet,Delayed Release (Dr/Ec) 40 mg PO DAILY RF: 0 furosemide 20 mg Tablet 20 mg PO DAILY RF: 0 prednisone 1 mg Tablet 4 mg PO DAILY RF: 0 budesonide-formoterol [Symbicort] 80-4.5 mcg/actuation Hfa Aerosol Inhaler 2 puff INHALATION BID RF: 0 tramadol 50 mg Tablet 50 mg PO BID Qty: 30 RF: 0 bisacodyl 5 mg Tablet,Delayed Release (Dr/Ec) 10 mg PO BID PRN (Reason: Constipation) Qty: 20 RF: 0 oxycodone 10 mg Tablet 10 mg PO Q6-8H PRN (Reason: Pain, Severe) Qty: 30 RF: 0 Discontinued vancomycin 125 mg Capsule 125 mg PO DAILY RF: 0 Follow up/Referrals: Josue Menchaca DO [Primary Care Provider] - Discharge Health Status Multidrug resistant organism: MRSA Precautions: Contact Diet/Activity/Treatments Diet: Low-fat and Low-sodium Liquid consistency: Normal/Thin Food texture: Regular Special Rehabilitation Services Reason for rehabilitation: Recovery r/t decondition Rehab type: Physical therapy and Occupational therapy Discharge Data Primary Care Provider: Josue Menchaca
[2020-02-14 11:27] LABS: COVID19 -Nasal RAPID Negative (Negative)
--- NOTE | 2020-02-14 11:43 | ST.IPDYTX ---
Visit Care Team Role Provider Type Josue Menchaca DO Primary Care Provider Non-Staff Specialty: Family Practice Address: [address] [place] [address], [id number] Email: Marleny Stokes DO Emergency Provider Physician Referring Provider Specialty: Emergency Medicine Address: [address] [place] [address], [id number] Email: [email or web address] Holly Dougherty MD Admit Provider Physician Attending Provider Specialty: Internal Medicine Address: [address] [place] [address], [id number] Email: [email or web address] AGENT BROKER Dysphagia Treatment AGENT BROKER Dysphagia Treatment Start: 02/14/20 11:28 Freq: Status: Active Protocol: Document 02/14/20 11:28 LOVE (Rec: 02/14/20 11:42 LOVE [email or web address]) Dysphagia Treatment Session Time Visit Start Time 08:45 Visit Stop Time 09:15 Total Visit Minutes 30 Setting Assessment Location Acute Care Visit Type Note Type Treatment Note Next Note Type Next Note Type Treatment Note Patient Information Identification Type Name,ID Card Subjective Observations The pt was sitting up in bed eating breakfast while also having a breathing treatment. Her daughter was with her. The pt denied currently having swallow difficulties and coughing with oral intake. She did say she coughs consistently with movement. She reported a history of eating and swallow difficulty with certain foods such as breads and dry, crumbly textures, and stated she has been required to consume thickened liquids in the past. At start of session, the pt's diet order was for pureed texture and NTLs, which is what arrived on her tray. However, she also had a hospital water bottle and a take-out coffee on her bedside table, both nearly full of thin liquids. Nsg was informed . During initial conversations, RT was also present and completed their evaluation and the breathing treatment. The pt was receiving 5L O2 via nasal cannula throughout the session and maintained 95-95% SATs. Treatment Liquids Trialed Thin,[place] Solids Trialed Puree,Dysphagia Mechanical Administration Type Cup Consecutive Sips,Straw, Self-Feeding Oral Strategies Upright at 90 degrees Treatment Activities Assessed the pt's tolerance of oral intake including Cream of Wheat, scrambled egg, small orange slices, thin and nectar-thick liquids. The pt exhibited no overt s/sx of aspiration with all trials. During intake, RT listened to the pt's lungs and reported no change with swallow; pt continued with diminished sounds and mild expiratory wheeze. Education was provided to the pt and her dtr RE general aspiration risks and precautions. Both verbalized understanding. Assessment Patient Response to Treatment Good Rehab Potential Good Assessment of Improvement Improved safety with advanced diet texture and thin liquids. Recommend advancing diet to dysphagia mechanical texture and thin liquids. While the pt safely tolerated consecutive sips via straw, small sips and slow rate of intake are recommended as a precaution. Diet Recommendations Recommendations Upgrade Diet Order Liquids Order Thin Diet Order Dysphagia Mechanical Medication Recommendations As Tolerated Additional Dietary Needs Single Sips Aspiration Precautions Recommended Precautions Upright at 90 Degrees,Frequent Rest Periods,Small Bites/Sips Treatment Plan Placement Recommendation after Discharge [facility] Facility,Home with Home Health,Home Care Appropriate for Continued Therapy Yes Therapy Recommendations Ongoing swallow assessment with advancement of diet as tolerated. Continued pt/family education. Dysphagia Goals 1. The pt will follow swallow safety precautions independently to reduce risk of aspiration. 2. The pt will tolerate least restrictive diet to meet her nutrition and hydration needs.
--- NOTE | 2020-02-14 11:43 | PC.NURSE ---
Addendum entered by Vida Jaeger R.N. 02/14/20 15:07: ATTEMPT X 2 TO CALL [facility] WITH MESSAGES LEFT - NO CALL BACK - PT [facility] AT 1435 Addendum entered by Vida Jaeger R.N. 02/14/20 14:01: pt prepared to discharge Original Note: pt with davalos removed and picc line as well in preparation for scheduled discharge this date- pt rolling well in bed and still frightened to walk/ambulate - she is agreeable to go [facility] this date and voices motivation to rehab with final destination to be home.
--- NOTE | 2020-02-14 12:06 | CM.DPC ---
Faxed to [facility] on 02/14/20 per [facility], signed med list, PASRR, PN, H&P and all PT notes. Scanned PASRR, signed med list and fax confirmation sheet.
--- NOTE | 2020-02-14 12:33 | PT.IPTN ---
Current Diagnoses Acute and chronic respiratory failure with hypercapnia (02/06/20) Physical Therapy Treatment Note M2 PT-IP Current Condition Start: 02/11/20 12:08 Freq: NEEDED Status: Active Protocol: Document 02/13/20 14:50 AW (Rec: 02/13/20 16:45 AW [id number]) Physical Therapy Current Condition Current Condition Evaluation Date 02/13/20 Treatment Diagnosis acute on chronic respiratory failure; difficulty in walking Onset Date 02/06/20 M3 PT-IP Subjective Start: 02/11/20 12:08 Freq: NEEDED Status: Active Protocol: Document 02/14/20 12:00 CLB (Rec: 02/14/20 13:26 CLB [id number]) Subjective Physical Therapy Visit Type Type Treatment Note Visit Start Time 12:00 Visit Stop Time 12:33 Total Visit Minutes 33 Notes Respiratory status is hypoxic and hypercapneic. SpO2 target is 88-92%. Co-treat with OT. Number of ENGRAVER LETTER Visits 1 Physical Therapy Visit Comments Patient Comments I already transferred with therapy Therapy Pain Assessment Pain When Pain Assessed After Treatment Pain Present Pain Present Pain Reported Location Bilateral Lower Leg Intensity 10 Scale Used right greater than left M4 PT-IP Mobility and Gait Start: 02/11/20 12:08 Freq: NEEDED Status: Active Protocol: Document 02/14/20 12:00 CLB (Rec: 02/14/20 13:26 CLB [id number]) PT-Bed Mobility Assessment Supine to Sit Supine to Sit Minimal Assistance,Moderate Assistance,1 Person Assistance ,Head of Bed Elevated,Bedrails Scooting Scooting to Edge of Bed Moderate Assistance PT-Transfer Assessment Sit to and From Stand Sit to and from Stand Contact Guard Assistance, Moderate Assistance,1 Person Assistance,2 Person Assistance ,Use of Upper Extremities Equipment Transfer Assistive Device Gait Belt,Front Wheeled Walker Orthotic/Prosthetic Devices or Brace: No Comments Mobility Comments Pt in bed upon arrival required Min A to seated position then Mod A with use of draw sheet to EOB. Pt then required a seated rest with SPo2 on 3L 90%. Pt then stood Min A for bed and CGA using step pivot transfer to BSC. Pt sat CGA onto BSC. Pt able to urinate and have BM. Pt then required Min A to stand from BSC and SBA during pericare with arms on walker to help steady and to improve breathing. Pt sat back onto BSC with lid down to rest. Pt then stood Mod A from [facility] and took steps forward ~2ft, BSC was removed and chair was moved behind her. Pt c/o high pain 10/10 of right ankle and needed to sit. Pt was left in reclined chair with all needs within reach, OT and PAINTER AND DECORATOR present in room. Gait Assessment Gait Gait Assistance Required: Minimum Assistance,1 Person Assist Distance (Feet) 2 Able to Maintain Weight Bearing Status Yes During Gait Assistive Devices Assistive Device Gait Belt,Front Wheeled Walker Gait Deviations General Gait Pattern Antalgic,Decreased Stride Length,Decreased Feet Clearance,Flexed Trunk,Step-to Gait,Wide Based Gait Factors Limiting Gait Function Factors Limiting Gait Function Decreased Activity Tolerance, Decreased Strength,Limited Range of Motion,Pain,Poor Balance,Poor Safety Awareness, Respiratory Distress Comments Gait Comments Pt only able to ambulate ~2ft with encouragement before fatigues and increased pain in right ankle. Stair Climbing Assessment Comments Stair Climbing Comments Not assessed. Pt has chair lift for stairs at home. M5 PT-IP Objective Assessments Start: 02/11/20 12:08 Freq: NEEDED Status: Active Protocol: Document 02/13/20 14:50 AW (Rec: 02/13/20 16:45 AW [id number]) Orientation Orientation/Cognition Level of Alertness Lethargic Orientation Name,Day of Week,Place, Situation Language Function Ability No Deficits Noted Safety Awareness Decreased Safety Awareness Memory Description No Deficits Noted Gross Range of Motion Lower Extremity ROM Assessment Bilaterally Impaired Impairments AROM limited due to habitus. Strength Lower Extremity Strength Assessment Bilaterally Impaired Comments Strength Comments BLE grossly 3/5 to 3+/5 Sensation Assessment Sensation Gross Sensation Right LE Impaired,Left LE Impaired Light Touch Impaired Sensation Description Paresthesia,Pain Muscle Tone Muscle Tone WNL Yes M6 PT-IP Treatment Start: 02/11/20 12:08 Freq: NEEDED Status: Active Protocol: Document 02/13/20 14:50 AW (Rec: 02/13/20 16:45 AW [id number]) Physical Therapy Treatment Education Education Provided Safety Other Treatments Other Treatment Performed Provided education on role of PT, plan of care, and energy conservation techniques. M7 PT-IP Assessment and Plan Start: 02/11/20 12:08 Freq: NEEDED Status: Active Protocol: Document 02/14/20 12:00 CLB (Rec: 02/14/20 13:26 CLB [id number]) PT Summary Assessment and Plan Summary Impairments Pain,ROM,Strength,Balance, Sensation,Bed Mobility, Transfers,Gait,Activity Tolerance Assessment Summary Pt requires Min-Mod A for supine-sit, sit-stand and transfers. Pt Sp02 90% on 3L after supine to sit and then 98% after ambulation of ~2ft to transfer to chair. Pt requires verbal encouragement and increased time to stop and take deep breaths. Pt will require SNF rehab to increase activity tolerance for functional mobility. Goals Bed Mobility Goal Standby Assistance Transfer Goal Minimal Assistance,Front Wheeled Walker Gait Goal Minimal Assistance,Front Wheel Walker Gait Distance 25 Days to Meet Goals 10 Frequency of Treatment Frequency Of Treatment Once a Day Treatment Plan Physical Therapy Treatment Plan Bed Mobility Training,Transfer Training,Gait Training, Therapeutic Exercise,Balance Retraining,Discharge Planning, Hot or Cold Pack,Neuromuscular Re-ed Other Recommendations and Next Treatment transfers, ambulation with FWW Focus if able. Recommendations To Nursing Amount of Assist Needed 2 Person Assist,3 or More Person Assist Discharge Recommendations PT Discharge Recommendations SNF Rehab
--- NOTE | 2020-02-14 12:36 | OT.IP.TRT ---
Current Diagnoses Acute and chronic respiratory failure with hypercapnia (02/06/20) Occupational Therapy Treatment Note M2 OT-IP Current Condition Start: 02/11/20 15:03 Freq: Status: Active Protocol: Document 02/11/20 15:03 CGR (Rec: 02/11/20 15:16 CGR [id number]) Occupational Therapy Current Condition Current Condition Evaluation Date 02/11/20 Treatment Diagnosis acute on chronic respiratory failure Diagnosis Onset Date 02/06/20 Post Operative Precautions Other Precautions Pt extubated 02/10/20 M3 OT- IP Subjective and Pain Start: 02/11/20 15:03 Freq: Status: Active Protocol: Document 02/14/20 12:36 CCC (Rec: 02/14/20 13:36 [facility] [id number]) OT- Subjective Occupational Therapy Visit Type Type Treatment Note Visit Start Time 11:47 Visit Stop Time 12:36 Total Visit Minutes 49 Occupational Therapy Visit Comments Patient Comments Pt needing initial encouragement and then agreed to get up to try to use the BSC. FISHER HAND LINE and FISHER HAND [employer] student present. Patient/Caregiver Goals To be able to care for herself again. OT Pain Assessment Pain When Pain Assessed During Mobility Pain Present Pain Present Pain Reported Location Bilateral Lower Leg Intensity 10 M4 OT- IP ADL's Start: 02/11/20 15:03 Freq: Status: Active Protocol: Document 02/14/20 12:36 CCC (Rec: 02/14/20 13:36 [facility] [id number]) OT [id number] Comments OT Self-Feeding Comments Not meal time OT ADL-Grooming General Evaluation Grooming Ability Standby Assistance Comments OT Grooming Comments Pt able to wash her hands and face after set-up of wash cloth. OT ADL-Oral Care Comments Oral Care Comments Not performed. OT ADL-Dressing General Eval Lower Body Dressing Ability Total Assistance OT ADL-Toileting General Evaluation Toileting Ability Maximum Assistance Areas Needing Assistance Manage Clothing,Perform Perineal Hygiene Comments OT Toileting Comments Pt able to lift her feet up so therapist able to jose elias brief over her feet, otherwise dependent for brief management and hygiene needs. One person assist to help stand pt with FWW and another to assist for all hygiene needs. OT ADL-Bathing Comments OT Bathing Comments Not performed M5 OT- IP IADL's Start: 02/11/20 15:03 Freq: Status: Active Protocol: Document 02/11/20 15:03 CGR (Rec: 02/11/20 15:16 CGR [id number]) OT-Instrumental Activities of Daily Living Deficits IADL Deficits Identified Deficits Home Safety Awareness Awareness of Need for Assistance at Home Decreased Awareness Ability to Problem Solve Emergency Unable to Problem Solve Situations Medication Management Medication Management Caregiver Administers Money Management Money Management Caregiver Provides Assistance Meal Preparation Meal Preparation Caregiver Provides Assist Sales Service Rep Sales Service Rep Caregiver Provides Assist Driving Driving Comments Pt does not drive M6 OT- IP Functional Cognition Start: 02/11/20 15:03 Freq: Status: Active Protocol: Document 02/14/20 12:36 [facility] (Rec: 02/14/20 13:36 [facility] [id number]) Cognitive Factors Limiting Selfcare Function Cognitive Ability Level of Alertness Alert Patient Orientation Name,Place Attention Span Ability Capable of Focused Attention, Unable to Sustain Attention Ability to Follow Commands Able to Follow One Step Commands with Increased Time, Able to Follow One Step Commands with Repetition Cognitive Comments Cognitive Assessment Comments Pt needing increased time to process and increased time to initiate movements when getting up. M7 OT- IP Mobility and Balance Start: 02/11/20 15:03 Freq: Status: Active Protocol: Document 02/14/20 12:36 [facility] (Rec: 02/14/20 13:36 [facility] [id number]) OT- Bed Mobility Assessment Rolling Type of Rolling Roll to Left Supine to Sit Supine to Sit Assist Minimal Assistance,Moderate Assistance,1 Person Assistance ,Bedrails Scooting Scooting to Edge of Bed Moderate Assistance,1 Person Assistance OT-Transfer Assessment Sit to and From Stand Sit to and from Stand Contact Guard Assistance, Moderate Assistance,2 Person Assistance Transfers Transfer Ability Contact Guard Assistance, Moderate Assistance,2 Person Assistance Technique Transfer Destination Bed,Bedside Commode,Chair Devices Transfer Assistive Devices Gait Belt,Front Wheeled Walker Comments Mobility Comments Pt initial sitting up into long sitting and then needing assist to get to the edge of the bed, Pt needing from CGA x2 to MODA x 2 to stand and transfer. Pt needing more help from lower surfaces and also due to having more pain with her right foot. OT- Balance Assessment Sitting Balance and Reactions Static Sitting Balance Ability Fair Standing Balance and Reactions Static Standing Balance Ability Poor M8 OT- IP Objective Assessments Start: 02/11/20 15:03 Freq: Status: Active Protocol: Document 02/11/20 15:03 CGR (Rec: 02/11/20 15:16 CGR [id number]) OT Gross Range of Motion Upper Extremity Range of Motion Assessment Within Functional Limits OT Strength Upper Extremity Strength Assessment Bilaterally Impaired Comments Strength Comments Pt with profoundly poor strength OT- Coordination Assessment Upper Extremity Finger to Nose Test Bilateral UE Impaired Finger Tapping Test Bilateral UE Impaired OT Sensation Assessment Edema Edema Present Edema Comments Pt with pitting edema to BUE M9 OT- IP Assessment and Plan Start: 02/11/20 15:03 Freq: Status: Active Protocol: Document 02/14/20 12:36 [facility] (Rec: 02/14/20 13:36 [facility] [id number]) OT Summary Assessment and Plan Potential Rehabilitation Potential Fair Analytic Complexity at Evaluation Moderate Summary OT Impairments Strength,Balance,Coordination, Functional Cognition, Functional Mobility,Self- Feeding,Grooming,Dressing, Toileting,Bathing,Toilet Transfers,Shower Transfers, Activity Tolerance Progress Towards Goals Progressing Toward Goals Assessment Summary [place] able [place] [facility] [place] today in addition to taking a few steps with the FWW. pt will benefit from skilled rehab to help increase overall independence and safety for all ADl and mobility needs. Goals Self-Feeding Goal Independent Grooming Goal Independent Dressing Goal Independent Toileting Goal Independent Bathing Goal Independent Toilet Transfer Goal Independent Shower Transfer Goal Independent Days to Meet Goals 29 Frequency of Treatment Frequency Of Treatment Once a Day Treatment Plan OT Treatment Plan ADL Training,Functional Cognition Training,Functional Mobility,Patient/Family Education,Discharge Planning Other Treatment Recommendations and Next ADLs as able. Treatment Focus Discharge Recommendations OT Discharge Recommendations SNF Rehab Home Equipment Needs TBD Transportation Needs at Discharge Wheelchair/Cabulance
--- NOTE | 2020-02-14 12:41 | CM.DPC ---
DCP/continued: Reviewed chart. Per Dr. Dougherty in AM rounds, patient medically stable to either 1)d/c home with hospice or 2)Pay privately for SNF at [facility]. SOIL SURVEYOR and CM/Leasing Assistant Manju met with patient explained role. Patient reports that she would like to go to [facility] via private pay today. SOIL SURVEYOR placed call to Mercedes at [facility]. They are wiling to accept. August reports that they plan to pick patient up at approximately 2:00pm. [facility] aware that patient will need bariatric w/c and 02 for transport. Verbal consent given to SOIL SURVEYOR to sign IMM. Placed call to patient's daughter/Db, updated her on the above. No additional needs identified. P: [facility] today. JACKELIN Hyatt
== END 2020-02-16 06:34 | disposition expired | DRG 208 ==
LOC: ED 15:36 → AC 15:52 → ICU 02-07 08:19 → AC 02-19 09:58
PROVIDERS: Internal Medicine; Nurse Practitioner Adult Health; Admitting Provider Internal Medicine; Emergency Provider Emergency Medicine; PCP Family Medicine; Referring Provider Emergency Medicine; Visit Provider Internal Medicine
DX: J96.22 Acute and chronic respiratory failure with hypercapnia (principal); J69.0 Pneumonitis due to inhalation of food and vomit; I50.33 Acute on chronic diastolic (congestive) heart failure; G92 Toxic encephalopathy; G93.41 Metabolic encephalopathy; I21.A1 Myocardial infarction type 2; I48.20 Chronic atrial fibrillation, unspecified; Z68.43 Body mass index [BMI] 50.0-59.9, adult; D62 Acute posthemorrhagic anemia; A04.71 Enterocolitis due to Clostridium difficile, recurrent; E66.2 Morbid (severe) obesity with alveolar hypoventilation; J96.11 Chronic respiratory failure with hypoxia; J44.9 Chronic obstructive pulmonary disease, unspecified; Z99.81 Dependence on supplemental oxygen; I95.2 Hypotension due to drugs; T40.2X5A Adverse effect of other opioids, initial encounter; Z79.01 Long term (current) use of anticoagulants; D64.9 Anemia, unspecified; S30.0XXA Contusion of lower back and pelvis, initial encounter; R51.9 Headache, unspecified; L40.0 Psoriasis vulgaris; K21.9 Gastro-esophageal reflux disease without esophagitis; M10.9 Gout, unspecified; L40.9 Psoriasis, unspecified; Z51.5 Encounter for palliative care; W19.XXXA Unspecified fall, initial encounter; Z87.891 Personal history of nicotine dependence
CPT/HCPCS: 36415; 36430; 36569; 36592; 36600; 51701; 70450; 71045; 72132; 73630; 80048; 80053; 81003; 82550; 82805; 82962; 83605; 83735; 83880; 84145; 84484; 85025; 86850; 86900; 86901; 87633; 87635; 87797; 92526; 92610; 93005; 93010; 94002; 94003; 94640; 94660; 94762; 94770; 94799; 96365; 96366; 96367; 96368; 96375; 97163; 97166; 97530; 97535; 99281; 99284; 99285; 99291; 99292; P9016; A9270; J0295; J0330; J1642; J1650; J1940; J2060; J2250; J2270; J2704; J3010; J3370; J3480; J7613

== ENCOUNTER 2020-02-14 21:33 | Inpatient (IN) | payer MEDICARE, OTHER, SELFPAY ==
[2020-02-06 16:12] VITALS: BMI 50.1
[2020-02-11 03:31] VITALS: PULSE 78
[2020-02-11 08:17] VITALS: RESP 12; O2SAT 97
[2020-02-14 21:35] VITALS: BP 122/58; PULSE 70; RESP 20; TEMP 36.8; O2SAT 98
--- NOTE | 2020-02-14 21:37 | DI.RAD.S_ITS ---
PROCEDURE: XR CHEST 1V INDICATIONS: SOB TECHNIQUE: One view of the chest was acquired. COMPARISON: [facility], CR, XR CHEST 1V, 02/11/2020, 18:44. [facility], CR, XR CHEST 1V, 02/09/2020, 5:59. FINDINGS: Surgical changes and devices: None. Lungs and pleura: Lungs are mildly edematous. No pleural effusions or pneumothorax. Mediastinum: Mediastinal contours appear normal. Heart size is globally enlarged, chronically. Bones and chest wall: No suspicious bony lesions. Overlying soft tissues appear unremarkable. IMPRESSION: Chronic CHF pattern with probable mild acute exacerbation. No definite focal pneumonia found. Dictated by: Louie Saavedra M.D. on 02/14/2020 at 22:08 Approved by: Louie Saavedra M.D. on 02/14/2020 at 22:09
--- NOTE | 2020-02-14 21:45 | ED.SOB ---
HPI - SOB/Dyspnea General Chief Complaint: Shortness of Breath/Dyspnea Stated Complaint: Low SpO2 Time Seen by Provider: 02/14/20 21:35 Source: patient, family and EMS Mode of arrival: EMS Limitations: no limitations History of Present Illness HPI Narrative: 80-year-old female end-stage respiratory failure was just discharged earlier today to a [place] [facility] facility. She had been admitted for few days and was stabilized prior to her discharge and over the course of the evening nursing staff became concerned because her pulse ox was dipping into the 70s. They made what alterations they felt comfortable with and noticed very little change, she was then given bronchodilators and had improvement in her numbers but by than they had contacted the sending physician to sent to the emergency department for further evaluation. Patient no longer is feeling short of breath and denies any chest pain. She is not dizzy nor weak or lightheaded. She has had no nausea, vomiting or diarrhea. I have spoken with nursing staff at the sending facility and they are unaware how to check current trilogy settings let alone change them if needed. They are very uncomfortable with the use of the trilogy device. Complaint: shortness of breath Onset (ago): minute(s) Context: recent illness Severity: mild Consistency/Duration: intermittent Relieving factors: oxygen, rest and bronchodilators Exacerbating factors: nothing Known history of: COPD Associated symptoms: denies other symptoms Related Data Home oxygen amount: other Home Medications Medication Instructions Recorded Confirmed Eliquis 5 mg PO BID 05/24/19 02/07/20 Spiriva Respimat 1 inh INHALATION DAILY 05/24/19 02/07/20 acetaminophen 500 mg PO BID 05/24/19 02/07/20 ferrous sulfate 325 mg PO DAILY 05/24/19 02/07/20 fluoxetine 10 mg PO DAILY 05/24/19 02/07/20 latanoprost 1 drp OPHTHALMIC (EYE) BEDTIME 05/24/19 02/07/20 melatonin 3 mg PO BEDTIME PRN 05/24/19 02/07/20 montelukast 10 mg PO QPM 05/24/19 02/07/20 allopurinol 100 mg PO BID 12/20/19 02/07/20 carvedilol 6.25 mg PO BID 12/20/19 02/07/20 fluticasone propion-salmeterol 1 inh INHALATION BID 12/20/19 02/07/20 [Advair Diskus] furosemide 20 mg PO DAILY 12/20/19 02/07/20 pantoprazole 40 mg PO DAILY 12/20/19 02/07/20 budesonide-formoterol [Symbicort] 2 puff INHALATION BID 12/23/19 02/07/20 prednisone 4 mg PO DAILY 12/23/19 02/07/20 Previous Rx's Medication Instructions Recorded bisacodyl 10 mg PO BID PRN #20 tab 12/27/19 oxycodone 10 mg PO Q6-8H PRN #30 tab 12/27/19 tramadol 50 mg PO BID #30 tab 12/27/19 nystatin [Nystop] 1 applic TOPICAL BID #7 g 02/14/20 Allergies Allergy/AdvReac Type Severity Reaction Status Date / Time Sulfa (Sulfonamide Allergy Intermediate Verified 12/23/19 12:04 Antibiotics) morphine AdvReac Severe Unresponsiv Verified 02/12/20 12:51 e Review of Systems Constitutional Constitutional: Denies chills, Denies fatigue, Denies fever(s), Denies frequent falls, Denies lethargy and Denies weakness Eyes Eyes: Denies change in vision, Denies eye discharge, Denies irritation and Denies loss of vision ENT Ears, Nose, Mouth, and Throat: Denies change in voice, Denies dizziness, Denies neck pain, Denies sore throat and Denies throat swelling Cardiovascular Cardiovascular: Denies chest pain, Denies irregular heart rhythm, Denies lightheadedness, Denies palpitations, Reports dyspnea, Denies dyspnea on exertion and Denies orthopnea Respiratory Respiratory: Denies cough, Reports dyspnea, Denies dyspnea on exertion and Denies wheezing Gastrointestinal Gastrointestinal: Denies abdominal pain, Denies change in bowel habits, Denies diarrhea, Denies nausea and Denies vomiting Musculoskeletal Musculoskeletal: Denies neck pain and Denies numbness Integumentary/Breasts Skin/Breast: Denies pruritus, Denies erythema, Denies rash and Denies wounds Neurologic Neurologic: Denies behavioral changes, Denies confusion, Denies dizziness, Denies frequent falls, Denies loss of vision, Denies numbness and Denies weakness Psychiatric Psychiatric: Denies anxiety, Denies behavioral changes, Denies confusion, Denies depression, Denies homicidal ideation and Denies suicidal ideation Endocrine Endocrine: Denies fatigue, Denies flushing and Denies palpitations Hematologic/Lymphatic Hematologic/Lymphatic: Denies easy bruising Allergic/Immunologic Allergic/Immunologic: Denies urticaria, Denies throat swelling and Denies wheezing Patient History Medical History (Updated 02/15/20 @ 01:47 by Dario Wu DO) Anemia Atrial fibrillation Cardiomegaly Congestive heart failure COPD (chronic obstructive pulmonary disease) Depression Diabetes Hospitalization or health care facility admission within last 6 months Hypercapnic respiratory failure (07/2019) JEANIE on CPAP Osteoarthritis PAF (paroxysmal atrial fibrillation) Pulmonary hypertension Ulcerative colitis Surgical History History of incision and drainage (2019) Family History Mother Pneumonia Father Medical history unknown Sister Macular degeneration Social History household members: none Smoking Status: Former smoker alcohol intake: former Smoking Status: Former smoker alcohol intake frequency: 0-2 drinks per day Substance Use Type: does not use Exam Narrative Exam Narrative: GENERAL: [80] year old patient appears stated age. Chronically ill, no obvious acute abnormality HEAD: Atraumatic. Normocephalic. EYES: Pupils equal round and reactive. Extraocular motions intact. No scleral icterus. No injection or drainage. ENT: Nose without bleeding, purulent drainage. Throat without erythema, tonsillar hypertrophy or exudate. Airway patent. NECK: Trachea midline. Non tender CARDIOVASCULAR: Irregular rate and rhythm without murmurs, gallops, or rubs. RESPIRATORY: Decreased breath sounds bilaterally with prolonged expiratory phase GASTROINTESTINAL: Abdomen soft, non-tender, nondistended. EXTREMITIES: Right foot drill operator to palpate, no obvious deformity. BACK: Nontender without deformity or crepitance. No flank tenderness. NEURO: AOx3. SKIN: No rash or erythema of visible areas Initial Vital Signs Initial Vital Signs: Vital Signs Temperature 98.2 F 02/14/20 21:35 Pulse Rate 70 02/14/20 21:35 Respiratory Rate 20 02/14/20 21:35 Blood Pressure 122/58 L 02/14/20 21:35 Pulse Oximetry 98 02/14/20 21:35 Course Course Course Narrative: extensive work trying to evaluate her Trilogy. [facility] staff brought unit over to our department and there are missing pieces from the facemask without an ability to generate a good seal. We have called back to SNF and they are unable to find missing part. We are unable to safely send her back, nor can we get missing pieces tonight. She will be admitted until a plan can get defined. Orders Ordered: ED Orders 02/14/20 21:35 NT-proBNP (BNP-Adult 18+) Stat 02/14/20 21:36 Consult to Respiratory Therapy Evaluate & Treat Basic Metabolic Panel Stat Complete Blood Count AUTO DIFF Stat Magnesium Stat Procalcitonin Stat Troponin & CK Cardiac Panel Stat EKG-12 Lead Stat 02/14/20 21:37 XR chest 1V Stat 02/14/20 22:03 Arterial Blood Gas Stat 02/14/20 22:14 XR foot RT min 3V Stat 02/14/20 23:23 RT Consult Eval and Treat NOW 02/15/20 01:38 BiPAP Ventilatory Support RT PROTOCOL 02/15/20 01:42 Consult to Discharge Planning Routine Acetaminophen (Acetaminophen 325 Mg Tablet) 650 mg PO Q6HR PRN PRN Reason: Fever/Mild Pain (1-3) Bisacodyl (Bisacodyl 5 Mg Tablet) 10 mg PO DAILY PRN PRN Reason: Constipation Docusate Sodium (Docusate 100 Mg Capsule) 100 mg PO BID CATHY Naloxone HCl (Naloxone 0.4 Mg/Ml Vial) 0.2 mg IV Q2MIN PRN PRN Reason: Opiate Reversal Ondansetron HCl (Ondansetron 4 Mg/2 Ml Inj) 4 mg IV Q8HR PRN PRN Reason: Nausea And Vomiting Sodium Chloride (Sodium Chloride 0.9% Flush) 10 ml IV PRN PRN PRN Reason: Flush Sodium Chloride (Sodium Chloride 0.9% Flush) 10 ml IV BID [facility] Discontinued Medications Albuterol (Albuterol 2.5 Mg/3 Ml Neb (Adult)) 2.5 mg INH NOW ONE Stop: 02/14/20 23:25 Last Admin: 02/14/20 23:29 Dose: 2.5 mg Documented by: [email or web address] Ondansetron HCl (Ondansetron 4 Mg Odt) 4 mg SL NOW ONE Stop: 02/15/20 01:35 Vital Signs Vital signs: Vital Signs - 8 hr 02/14/20 21:35 02/14/20 23:34 Temperature 98.2 F Pulse Rate 70 78 Respiratory Rate 20 18 Blood Pressure 122/58 L Pulse Oximetry 98 98 MDM - SOB/Dyspnea Lab Data Result diagrams: 02/15/20 00:15 02/15/20 00:15 Labs: Lab Results 02/14/20 02/15/20 02/15/20 Range/Units 22:03 00:15 00:15 WBC 6.4 (4.5-11.0) X10^3/uL RBC 3.47 L (4.0-5.2) X10^6/uL Hgb 10.4 L (12.0-16.0) g/dL Hct 34.1 L (36-46) % MCV 98.3 (80-100) fL MCH 30.0 (26-34) PG MCHC 30.5 (30-36) % RDW 16.2 H (11.6-14.8) % Plt Count 402 H (150-400) X10^3/uL Neut % (Auto) 75.7 H (50-75) % Lymph % (Auto) 11.4 L (25-40) % Bledsoe % (Auto) 11.0 (3-14) % Eos % (Auto) 1.3 L (2-4) % Baso % (Auto) 0.6 (0-2) % Neut # (Auto) 4800 (7288-1157) /uL Lymph # (Auto) 700 L (3909-1718) /uL Bledsoe # (Auto) 700 (0-900) /uL Eos # (Auto) 100 (0-450) /uL Baso # (Auto) 0 (0-100) /uL ABG pH 7.22 L* (7.35-7.45) ABG pCO2 89.9 H* (35-45) mmHg ABG pO2 155 H (80-100) mmHg ABG HCO3 37 H (22-26) mmol/L ABG Total CO2 40 H (21-31) mmol/L ABG O2 Saturation 99 (95-100) % ABG Base Excess 9.0 H (-2-2) mmol/L FiO2 32 Sodium (137-145) mmol/L Potassium (3.4-5.1) mmol/L Chloride (98-107) mmol/L Carbon Dioxide (22-32) mmol/L BUN (7-17) mg/dL Creatinine (0.52-1.04) mg/dL Estimated GFR (>60) mL/min BUN/Creatinine Ratio (6-22) Glucose (80-110) mg/dL Calcium (8.4-10.2) mg/dL Magnesium (1.6-2.3) mg/dL Total Creatine Kinase (30-135) U/L CK-MB (CK-2) CK-MB (CK-2) Rel Index Troponin I (0.01-0.034) ng/mL NT-Pro-B Natriuret Pep 3140 H (<450) pg/mL Procalcitonin (<0.5) ng/mL 02/15/20 02/15/20 Range/Units 00:15 00:15 WBC (4.5-11.0) X10^3/uL RBC (4.0-5.2) X10^6/uL Hgb (12.0-16.0) g/dL Hct (36-46) % MCV (80-100) fL MCH (26-34) PG MCHC (30-36) % RDW (11.6-14.8) % Plt Count (150-400) X10^3/uL Neut % (Auto) (50-75) % Lymph % (Auto) (25-40) % Bledsoe % (Auto) (3-14) % Eos % (Auto) (2-4) % Baso % (Auto) (0-2) % Neut # (Auto) (8299-4855) /uL Lymph # (Auto) (9584-0356) /uL Bledsoe # (Auto) (0-900) /uL Eos # (Auto) (0-450) /uL Baso # (Auto) (0-100) /uL ABG pH (7.35-7.45) ABG pCO2 (35-45) mmHg ABG pO2 (80-100) mmHg ABG HCO3 (22-26) mmol/L ABG Total CO2 (21-31) mmol/L ABG O2 Saturation (95-100) % ABG Base Excess (-2-2) mmol/L FiO2 Sodium 136 L (137-145) mmol/L Potassium 4.6 (3.4-5.1) mmol/L Chloride 96 L (98-107) mmol/L Carbon Dioxide 37 H (22-32) mmol/L BUN 14 (7-17) mg/dL Creatinine 0.70 (0.52-1.04) mg/dL Estimated GFR > 60.0 (>60) mL/min BUN/Creatinine Ratio 20.0 (6-22) Glucose 108 (80-110) mg/dL Calcium 9.7 (8.4-10.2) mg/dL Magnesium 1.6 (1.6-2.3) mg/dL Total Creatine Kinase 30 (30-135) U/L CK-MB (CK-2) TNP CK-MB (CK-2) Rel Index TNP Troponin I 0.019 (0.01-0.034) ng/mL NT-Pro-B Natriuret Pep (<450) pg/mL Procalcitonin 0.12 (<0.5) ng/mL Urine Dip Bedside Urine Glucose Negative Bedside Urine Bilirubin - Negative Bedside Urine Ketone +/- 5 Urine Specific Negley 1.025 Bedside Urine Occult Blood - Negative Bedside Urine pH 6.0 Bedside Urine Protein +/- 15 Bedside Urine Urobilinogen - Negative Bedside Urine Nitrite - Negative Bedside Urine Leukocytes - Negative Esterase Discharge Plan Departure Patient Disposition: Admitted as Observation Clinical Impression: Acute dyspnea Admit Date/Time: 02/15/20 01:47 Admit Provider: Nomran Palma
--- NOTE | 2020-02-14 22:14 | DI.RAD.S_ITS ---
PROCEDURE: XR FOOT RT MIN 3V INDICATIONS: foot pain, fall TECHNIQUE: 3 views of the foot were acquired. COMPARISON: [facility], CR, XR FOOT RT 2V, 12/02/2019, 15:45. FINDINGS: Bones: Severe osteopenia as before. Findings are again most pronounced over the metatarsal head of the 2nd through 5th metatarsals. No evidence for cortical destruction. Findings appear similar to comparison radiograph dated December 02, 2019. No definite fracture noted. Alignment is stable. Severe degenerative changes of the right midfoot and ankle as before. Prominent plantar calcaneal spur. New corticated soft tissue calcification overlying the dorsal aspect of the right midfoot. No suspicious bony lesions. Soft tissues: Moderate soft tissue swelling of the right foot and ankle. Vascular calcifications are present. No tibiotalar joint effusion. Achilles tendon appears normal. IMPRESSION: Severe osteoporosis without definite fracture or dislocation. Given history of fall, consider immobilization and repeat imaging in 10-14 days. 2. Stable appearance of focal osteopenia involving the heads of the 2nd through 5th metatarsals. 3. Severe degenerative changes of the right midfoot and ankle possibly related to Charcot joint disease. No significant discrepancy with the shell plater radiology preliminary report. Dictated by: Robe Bryant M.D. on 02/15/2020 at 8:13 Approved by: Robe Bryant M.D. on 02/15/2020 at 8:19
--- NOTE | 2020-02-14 22:48 | PC.NURSE ---
Pt was discharged from today and presents today without complaint. Pt declining interventions like bipap-- Dr Wu aware, ok to defer lab draw/IV start for now. ABG shows hypercapnia CO2 155. RT suggests bipap to correct CO2; Dr Wu will speak with sending physician to form plan of care. Pt remains stable. XR of R foot done at bedside.
[2020-02-14 23:18] LABS: pH ABG 7.22 (7.35-7.45)
[2020-02-14 23:19] LABS: Fractionated Inspired Oxygen 32; HCO3 ABG 37 mmol/L (22-26); Oxygen Saturation ABG 99 % (95-100); PCO2 ABG 89.9 mmHg (35-45); PO2 ABG 155 mmHg (80-100); TCO2 ABG 40 mmol/L (21-31)
[2020-02-14] MEDS: ALBUTEROL 2.5 MG/3 ML NEB (ADULT) INH (23:29)
--- NOTE | 2020-02-14 23:29 | PC.NURSE ---
Pt c/o mild SOB, bipap discussed, pt declined bipap. Requests breathing treatment-- Dr Wu notified, RT paged for treatment.
[2020-02-14 23:34] VITALS: PULSE 78; RESP 18; O2SAT 98
--- NOTE | 2020-02-15 00:21 | PC.NURSE ---
Attemted to place IV and draw labs. Able to obtain purple and green top blood tubes. Dr Wu notified-- ok to run only labs that can be obtained from blue and green tops (CBC, chem) no need to draw more blood. Ramonita in lab notified.
[2020-02-15 00:37] LABS: Add Manual Diff / Slide Review NO; Basophils Absolute Auto 0 /uL (0-100); Basophils Percent Auto 0.6 % (0-2); Eosinophils Absolute Auto 100 /uL (0-450); Eosinophils Percent Auto 1.3 % (2-4); Hematocrit 34.1 % (36-46); Hemoglobin 10.4 g/dL (12.0-16.0); Lymphocytes Absolute Auto 700 /uL (1100-4500); Lymphocytes Percent Auto 11.4 % (25-40); Mean Corpuscular HGB Conc 30.5 % (30-36); Mean Corpuscular Volume 98.3 fL (80-100); Monocytes Absolute Auto 700 /uL (0-900); Neutrophils Absolute Auto 4800 /uL (1500-7000); Neutrophils Percent Auto 75.7 % (50-75); Platelet Count 402 X10^3/uL (150-400); Red Blood Cell Count 3.47 X10^6/uL (4.0-5.2); Red Cell Distribution Width 16.2 % (11.6-14.8); White Blood Cell Count 6.4 X10^3/uL (4.5-11.0)
[2020-02-15 00:41] LABS: Blood Urea Nitrogen 14 mg/dL (7-17); Calcium 9.7 mg/dL (8.4-10.2); Chloride 96 mmol/L (98-107); Creatine Kinase 30 U/L (30-135); Estimated Glomerular Filt Rate > 60.0 mL/min (>60); Glucose 108 mg/dL (80-110); Magnesium 1.6 mg/dL (1.6-2.3); Sodium 136 mmol/L (137-145)
[2020-02-15 00:42] LABS: HEMOLYSIS 100 (0-50)
[2020-02-15 00:47] LABS: NT-proBNP (BNP-Adult 18+) 3140 pg/mL (<450); Potassium 4.6 mmol/L (3.4-5.1)
[2020-02-15 00:51] LABS: Carbon Dioxide 37 mmol/L (22-32)
[2020-02-15 00:52] LABS: Troponin I 0.019 ng/mL (0.01-0.034)
[2020-02-15 00:58] LABS: Procalcitonin 0.12 ng/mL (<0.5)
[2020-02-15] MEDS: ONDANSETRON 4 MG ODT SL (02:17)
[2020-02-15 02:50] VITALS: BP 115/61; PULSE 78; RESP 10; TEMP 36.8; O2SAT 91
[2020-02-15 03:08] VITALS: BMI 50.8
[2020-02-15 03:23] VITALS: PULSE 79; RESP 18; O2SAT 91
[2020-02-15 04:30] VITALS: BP 105/58; PULSE 86; RESP 16; O2SAT 82
[2020-02-15 04:44] VITALS: PULSE 80; O2SAT 89
[2020-02-15 05:13] VITALS: PULSE 80; O2SAT 80
[2020-02-15] MEDS: LORazepam 2 MG/ML INJ 0.5 MG IM ×2 (05:51→10:34)
--- NOTE | 2020-02-15 05:54 | PM.HP.1 ---
History of Present Illness History of Present Illness Date Patient Seen: 02/15/20 Time Patient Seen: 03:15 Chief complaint: Low SpO2 Narrative: Ms. Leyda Nielsen is an 80-year-old female with chronic respiratory failure, atrial fibrillation, congestive heart failure, 2 morbid obesity who was discharged from the hospital at 3:00 p.m. to [facility] on a trilogy for assisted ventilation. The goal was for the patient to be able to rehabilitate to the point that she could be able to walk to the bathroom then return home with hospice. At the facility [facility] the patient decompensated became hypoxic with oxygen saturations in the 70s noted staff. The administered bronchodilators attempted chest trilogy to maximize ventilation without sufficient improvement. The patient was brought back to the emergency department at about 9:30 p.m.. The patient was hypoxic and started on high-flow nasal cannula is found to be acidotic with hypercapnia with a pCO2 of 90 and a PaO2 of 155. The patient was conversant at time. Suggestion was made to obtain the trilogy from the [facility] returned the patient on her settings with assistance of respiratory therapy. This was attempted however a component of the mask system is missing rendering the mask ineffective and unable to maintain adequate seal for ventilation. Upon arrival to the ER patient is found to be afebrile with temperature 97.6?, heart rate of 64, blood pressure 106/53 with respirations of 20 saturating 96% on non-rebreather mask. Chest x-ray is obtained finding chronic congestive heart failure pattern with mild acute exacerbation, no pneumonia. Laboratory analysis she has a white count of 6.4 hemoglobin 10.4, hematocrit of 34.1 and platelets of 402. Electrolytes are all within normal limits she has a BUN of 14 and creatinine of 0.7. Nonfasting glucose is 108. Arterial blood gases obtained in the patient has a pH of 7.22, pCO2 of 89, PaO2 of 55, bicarb of 37 with a base excess of +9 on 32% FiO2. Procalcitonin is 0.7, proBNP is 3140 and troponin is 0.019. The patient is able to maintain oxygenation in the emergency however she remains significant hypercapnic. The patient is admitted to the medicine service for ventilatory support on BiPAP. Patient History Medical History Anemia Atrial fibrillation Cardiomegaly Congestive heart failure COPD (chronic obstructive pulmonary disease) Depression Diabetes Hospitalization or health care facility admission within last 6 months Hypercapnic respiratory failure (07/2019) JEANIE on CPAP Osteoarthritis PAF (paroxysmal atrial fibrillation) Pulmonary hypertension Ulcerative colitis Surgical History History of incision and drainage (2019) Family & Social History Family History Mother Pneumonia Father Medical history unknown Sister Macular degeneration Social History: household members none Prior Living Arrangements Skilled Nurse Facility Safety & Behavioral: Feels Safe in Current Yes Environment Suicidal Ideation Description None Suicide Plan Description No Plan Tobacco & Substance use: Smoking Status Former smoker alcohol intake former alcohol intake frequency 0-2 drinks per day Substance Use Type does not use Meds Home Medications and Allergies Home Medications Medication Instructions Recorded Confirmed Type Eliquis 5 mg PO BID 05/24/19 02/15/20 History Spiriva Respimat 1 inh INHALATION DAILY 05/24/19 02/15/20 History acetaminophen 500 mg PO BID 05/24/19 02/15/20 History ferrous sulfate 325 mg PO DAILY 05/24/19 02/15/20 History fluoxetine 10 mg PO DAILY 05/24/19 02/15/20 History latanoprost 1 drp OPHTHALMIC (EYE) BEDTIME 05/24/19 02/15/20 History melatonin 3 mg PO BEDTIME PRN 05/24/19 02/15/20 History montelukast 10 mg PO QPM 05/24/19 02/15/20 History allopurinol 100 mg PO BID 12/20/19 02/15/20 History carvedilol 6.25 mg PO BID 12/20/19 02/15/20 History fluticasone propion-salmeterol 1 inh INHALATION BID 12/20/19 02/15/20 History [Advair Diskus] furosemide 20 mg PO DAILY 12/20/19 02/15/20 History pantoprazole 40 mg PO DAILY 12/20/19 02/15/20 History budesonide-formoterol [Symbicort] 2 puff INHALATION BID 12/23/19 02/15/20 History prednisone 4 mg PO DAILY 12/23/19 02/15/20 History bisacodyl 10 mg PO BID PRN #20 tab 12/27/19 02/15/20 Rx oxycodone 10 mg PO Q6-8H PRN #30 tab 12/27/19 02/15/20 Rx tramadol 50 mg PO BID #30 tab 12/27/19 02/15/20 Rx nystatin [Nystop] 1 applic TOPICAL BID #7 g 02/14/20 02/15/20 Rx Allergies Allergy/AdvReac Type Severity Reaction Status Date / Time Sulfa (Sulfonamide Allergy Intermediate Verified 12/23/19 12:04 Antibiotics) morphine AdvReac Severe Unresponsiv Verified 02/12/20 12:51 e Review of Systems Review of Systems ROS: Yes unobtainable due to mental status (Patient is obtundent secondary to hypercapnia) Exam Vital Signs (past 8 hours): - 02/14/20 23:34 02/15/20 02:50 02/15/20 03:23 Temperature 98.2 F Pulse Rate 78 78 79 Respiratory Rate 18 10 L 18 Blood Pressure 115/61 Pulse Oximetry 98 91 91 02/15/20 04:30 02/15/20 04:44 02/15/20 05:13 Temperature Pulse Rate 86 80 80 Respiratory Rate 16 Blood Pressure 105/58 L Pulse Oximetry 82 L 89 L 80 L Oxygen Delivery Method Heated High Flow Oxygen Flow Rate 35 Narrative Exam Narrative: GENERAL APPEARANCE: well developed, morbidly obese female who is abdomen did will open eyes to tactile stimulus on high-flow nasal cannula in respiratory distress. HEENT: Normocephalic, PERRLA, sluggish, lips and mucous membranes are dusky. NECK/THYROID: no JVD, trachea midline. SKIN: Pale warm and dry, scattered areas of ecchymosis HEART: regular rate and rhythm, S1-S2, 2/6 systolic murmur, 1 + edema LUNGS: Lungs diminished bibasilar, no coarseness crackles or wheezing, no cough present CHEST: Symmetrical movement, no accessory muscle use, shallow tidal volume. ABDOMEN: Soft, no distention, no abdominal tenderness, active bowel tones. EXTREMITIES: Occasional spontaneous nonpurposeful movement of left upper extremity. No deformities noted NEUROLOGIC: Patient is responsive to noxious stimulus with eye opening but will not verbalize nor follow commands. Objective Labs Result Diagrams: 02/15/20 00:15 02/15/20 00:15 Labs: Laboratory Results - last 24 hr 02/14/20 02/15/2002/14/20 22:03 00:15 00:15 WBC 6.4 RBC 3.47 L Hgb 10.4 L Hct 34.1 L MCV 98.3 MCH 30.0 MCHC 30.5 RDW 16.2 H Plt Count 402 H Neut % (Auto) 75.7 H Lymph % (Auto) 11.4 L [place] % (Auto) 11.0 Eos % (Auto) 1.3 L Baso % (Auto) 0.6 Neut # (Auto) 4800 Lymph # (Auto) 700 L [place] # (Auto) 700 Eos # (Auto) 100 Baso # (Auto) 0 ABG pH 7.22 L* ABG pCO2 89.9 H* ABG pO2 155 H ABG HCO3 37 H ABG Total CO2 40 H ABG O2 Saturation 99 ABG Base Excess 9.0 H FiO2 32 Sodium Potassium Chloride Carbon Dioxide BUN Creatinine Estimated GFR BUN/Creatinine Ratio Glucose Calcium Magnesium Total Creatine Kinase CK-MB (CK-2) CK-MB (CK-2) Rel Index Troponin I NT-Pro-B Natriuret Pep 3140 H Procalcitonin 02/15/20 02/15/20 00:15 00:15 WBC RBC Hgb Hct MCV MCH MCHC RDW Plt Count Neut % (Auto) Lymph % (Auto) [place] % (Auto) Eos % (Auto) Baso % (Auto) Neut # (Auto) Lymph # (Auto) [place] # (Auto) Eos # (Auto) Baso # (Auto) ABG pH ABG pCO2 ABG pO2 ABG HCO3 ABG Total CO2 ABG O2 Saturation ABG Base Excess FiO2 Sodium 136 L Potassium 4.6 Chloride 96 L Carbon Dioxide 37 H BUN 14 Creatinine 0.70 Estimated GFR > 60.0 BUN/Creatinine Ratio 20.0 Glucose 108 Calcium 9.7 Magnesium 1.6 Total Creatine Kinase 30 CK-MB (CK-2) TNP CK-MB (CK-2) Rel Index TNP Troponin I 0.019 NT-Pro-B Natriuret Pep Procalcitonin 0.12 Assessment & Plan Assessment & Plan narrative: This is an 80-year-old female patient who was discharged from the hospital at 3:00 p.m. to return at 8:00 p.m. from her snf facility for hypoxemia. The patient has acute on chronic respiratory failure. 1. Acute on chronic respiratory failure. Present on admission, active -upon arrival to the ER the patient has an ABG revealing pH of 7.22, pCO2 of 89, PO2 of 155, bicarb of 37 and a base excess of +9. -the patient is initially stabilized on high-flow nasal cannula in the emergency department at 32% FiO2 patient is reported as conversant and interactive. -the patient's trilogy mask was found to be broken and unable to be used. Patient to be admitted to the floor on on BiPAP ventilatory support until repair of her trilogy ventilator. -At the time encounter the patient is found on high-flow nasal cannula minimally responsive and acutely hypoxic with SpO2 of 60. Respiratory therapist was called and the patient's ventilation supported with a bag-valve mask with return of SpO2 with a goal of 88-92% in the setting of COPD. In conjunction with respiratory therapist settings were adjusted however oxygenation was unable to be maintained repeated episodes of ventilation or required to maintain oxygenation. The patient was subsequently transferred to the ICU for closer monitoring the patient was started on BiPAP. -multiple attempts were made between BiPAP on various settings, the patient's trilogy on her home settings using her mask with temporary repair as well as with BiPAP mask and heated high-flow. All attempts failed to maintain oxygenation is the patient hyperventilates. She has not received any medications to contribute to respiratory depression. The patient's sister Latrice is at bedside and discuss the patient's current condition and inability to maintain oxygen saturation regardless of therapeutic device. Call was placed to her son [place]ico who is her power of commercial real estate attorney for medical care. Reviewed the above information in the patient's inability to maintain adequate oxygenation secondary to hypoventilation. The patient's respiratory pattern is ineffective and a synchronous with the vent story devices. Discussed goals of care noting the patient has adamantly declined re-intubation following extubation from prior admission which would be the last modality possible to manage the patient's respiratory failure. Further discuss that considering the patient's rapid return to the hospital with respiratory failure provides a poor prognosis for her rehabilitation potential and as such ability to return to home with hospice as planned. Reviewed the patient's current status as abdomen did and hypoventilating secondary to CO2 retention. 2. Comfort care -The decision was made to make the patient comfort care and withdraw mechanical support. -the patient will remain on high-flow nasal cannula at 32% FiO2. -ordered fentanyl 50 mcg intranasal every hour as needed for comfort as the patient has refused IV while in the ER. -ordered Ativan 0.5 mg IM every 2 hours as needed for restlessness or agitation. -ordered scopolamine patch as needed for secretion management -supportive care provided to the patient's sister at bedside. The patient is admitted to the hospital for acute on chronic respiratory failure initially presenting is stabilized further deteriorating following admission to the floor. The patient is admitted to the ICU for close monitoring and ventilatory support. Failing such measures the patient is transition to comfort care. Disposition: The patient is expected to within hours. Critical care time: 90 minutes is spent with greater than 50% in direct [id number] with the patient. Time spent coordinating care discussing plan of care with family members and family conference. Time Spent With Patient Time with patient: Greater than 35 minutes Quality VTE Deep Vein Thrombosis/Pulmonary Embolism Present on Admission: No
[2020-02-15] MEDS: fentaNYL 100 MCG/2 ML INJ 50 MCG NASAL ×2 (05:58→10:34)
--- NOTE | 2020-02-15 06:29 | PC.NURSE ---
Addendum entered by Natividad Talbot R.N. 02/15/20 06:33: 0415 - Pt transferred to ICU and RT Abdulaziz and Louie CARSON at bedside. Started pt on BIPAP and O2 sats now at mid 80s. Patient minimally responsive, BP 106/53, HR running in the 80s AFib on telemetry, bradypnea. O2 sats continue to drop to 70-80s sustaining while on BIPAP (various settings). Switched patient to home trilogy with 3L O2. O2 sats continue to run in the mid 70-80s and occasionally drop to the 60s and 50s. Agonal slow breaths and pt cyanotic in the lips. Rt switched pt to High flow NC while ventailating with bag valve mask in between. Pt O2 sats now running in the 60-70s. All attempts failed to maintain adequate oxygenation. Louie CARSON discussed patient condition with family at bedside and on phone. Verbal orders to switch patient to comfort care. Continue on high flow at Fio2 32%. Tele and pulse ox removed per provider. Ativan and fentanyl given per provider. Pt now resting in bed with sister Latrice at bedside. No IV access as patient refused one in ED, provider aware. Original Note: Late entry 0400 - Pt in AC on NC found to have O2 sats in the 50s. Louie CARSON started ventilating patient with bag and O2 sats back upt 90%. Recieved call from charge nurse JORGE Hendricks to transfer patient to ICU
--- NOTE | 2020-02-15 07:33 | PC.NURSE ---
pt was admitted from ER to AC room at 0250. pt alert and oriented but very tired and fell asleep in the middle of admission assessment. most history was provided by pt and pt sister, Latrice. Pt o2 sat was 55%-68% RT was at bedside and fixed pt with hiflow at 20 L/min pt was still saturating at 77%. as per hospitalist, transfer pt to ICU and put pt on BiPap. Report passed down to CHEMISTRY TEACHER
[2020-02-15 08:15] VITALS: BP 90/56; PULSE 83; RESP 15; O2SAT 30
--- NOTE | 2020-02-15 11:59 | PC.NURSE ---
Rec'd pt in bed eyes closed, somnolent. Family at bedside. On HHFNC with agonal breathing and diminished lung sounds. Per report and discussion with family, awaiting arrival of one family member and then will proceed with removing high flow O2 and administering comfort medications PRN. Pt's clergyman visited pt/family and provided spiritual support. Pt appears comfortable at this time. Family requesting minimal interruptions, position changes. 1030- Removed HHFNC and placed on regular NC 2LPM. Administered PRN comfort meds from increased work of breathing and restlessness/pain. Post med administration, pt is sleeping with intermittent apneic episodes.
[2020-02-15] MEDS: MORPHINE 10 MG/0.5 ML ORAL SYRINGE SL (13:14)
[2020-02-15] MEDS: LORazepam 2 MG/ML ORAL SOL 1 MG SL (14:13)
--- NOTE | 2020-02-15 15:43 | P.PN_ITS ---
Subjective Subjective Date Patient Seen: 02/15/20 Interval history: Alannah bettencourt is an 80-year-old female with a history of chronic respiratory failure, obesity hypoventilation syndrome, morbid obesity, who was discharged from the hospital yesterday to [facility]. The patient came back to the hospital with acute on chronic respiratory failure. In the emergency department they attempted to replace her trilogy and unfortunately were unable to oxygenate her. She after long discussion was made comfort care hyper her power of sheet rock finisher. The patient has been admitted to the hospital placed on fentanyl and is currently in under comfort measures. Family is at the bedside and concurs with the plan as outlined above. Exam Vital Signs (past 8 hours): - 02/15/20 08:15 Pulse Rate 83 Respiratory Rate 15 Blood Pressure 90/56 L Pulse Oximetry 30 L Fraction of Inspired Oxygen 32 Oxygen Delivery Method Heated High Flow Oxygen Flow Rate 40 Narrative Exam Narrative: Obese female lying in bed unresponsive on oxygen Lungs: Decreased breath sounds bilaterally Cardiac exam: Regular rate and rhythm normal S1-S2 Abdomen: Soft and nontender Extremities no edema Objective Labs Result Diagrams: 02/15/20 00:15 02/15/20 00:15 Labs: Laboratory Results - last 24 hr 02/14/20 02/15/20 02/15/20 22:03 00:15 00:15 WBC 6.4 RBC 3.47 L Hgb 10.4 L Hct 34.1 L MCV 98.3 MCH 30.0 MCHC 30.5 RDW 16.2 H Plt Count 402 H Neut % (Auto) 75.7 H Lymph % (Auto) 11.4 L [place] % (Auto) 11.0 Eos % (Auto) 1.3 L Baso % (Auto) 0.6 Neut # (Auto) 4800 Lymph # (Auto) 700 L [place] # (Auto) 700 Eos # (Auto) 100 Baso # (Auto) 0 ABG pH 7.22 L* ABG pCO2 89.9 H* ABG pO2 155 H ABG HCO3 37 H ABG Total CO2 40 H ABG O2 Saturation 99 ABG Base Excess 9.0 H FiO2 32 Sodium Potassium Chloride Carbon Dioxide BUN Creatinine Estimated GFR BUN/Creatinine Ratio Glucose Calcium Magnesium Total Creatine Kinase CK-MB (CK-2) CK-MB (CK-2) Rel Index Troponin I NT-Pro-B Natriuret Pep 3140 H Procalcitonin 02/15/20 02/15/20 00:15 00:15 WBC RBC Hgb Hct MCV MCH MCHC RDW Plt Count Neut % (Auto) Lymph % (Auto) [place] % (Auto) Eos % (Auto) Baso % (Auto) Neut # (Auto) Lymph # (Auto) [place] # (Auto) Eos # (Auto) Baso # (Auto) ABG pH ABG pCO2 ABG pO2 ABG HCO3 ABG Total CO2 ABG O2 Saturation ABG Base Excess FiO2 Sodium 136 L Potassium 4.6 Chloride 96 L Carbon Dioxide 37 H BUN 14 Creatinine 0.70 Estimated GFR > 60.0 BUN/Creatinine Ratio 20.0 Glucose 108 Calcium 9.7 Magnesium 1.6 Total Creatine Kinase 30 CK-MB (CK-2) TNP CK-MB (CK-2) Rel Index TNP Troponin I 0.019 NT-Pro-B Natriuret Pep Procalcitonin 0.12 PFSH Medical History Anemia Atrial fibrillation Cardiomegaly Congestive heart failure COPD (chronic obstructive pulmonary disease) Depression Diabetes Hospitalization or health care facility admission within last 6 months Hypercapnic respiratory failure (07/2019) JEANIE on CPAP Osteoarthritis PAF (paroxysmal atrial fibrillation) Pulmonary hypertension Ulcerative colitis Surgical History History of incision and drainage (2019) Family History Mother Pneumonia Father Medical history unknown Sister Macular degeneration Social History household members: none Smoking Status: Former smoker alcohol intake: former Assessment & Plan Assessment & Plan narrative: 80-year-old female admitted to the hospital with acute on chronic respiratory failure -patient with known obesity hypoventilation syndrome -patient with chronic hypercapnia made worse by administration of morphine. She did not receive any narcotics at this time. -patient recently readmitted to the hospital after failure of her trilogy at [facility] -given the patient's progressive decline in worsening pulmonary status her family has decided to make her comfort measures -all medications have been discontinued except for sublingual morphine Ativan, scopolamine patch and oxygen as needed -patient's prognosis is g anticipate demise within the next 24 hours 2. Morbid obesity -likely contributing to hypoventilation and hypercapnia 3. Chronic COPD 4. GERD 5. Paroxysmal Atrial Fibrillation 6. Chronic Diastolic Heart Failure Plan: Continue comfort measures Quality VTE Deep Vein Thrombosis/Pulmonary Embolism Present on Admission: No
--- NOTE | 2020-02-15 16:17 | CM.DANOTE ---
DCP/Assessment: Reviewed chart. Patient is a 80yr old female admitted to . with SOB. Patient discharged [facility] to [facility]. Per notes, patient's trilogy was not working properly at facility which caused patient to become hypoxic. Patient currently DNR and does not want to be intubated. Spoke with provider/Dr. Dougherty this AM. She is meeting with the family today to discuss goals of care and comfort route. Dr. Dougherty reports family has decided to keep patient comfortable for the remaining time she is alive. Patient resting comfortably with family at bedside. Comfort medications initiated. P: Anticipate that patient will this hospitalization. JACKELIN Hyatt Discharge Planning/Care Management CM Discharge Assessment Start: 02/15/20 16:14 Freq: Status: Active Protocol: Document 02/15/20 16:14 KJS (Rec: 02/15/20 16:17 KJS [id number]) Discharge Planning Assessment Assigned Golf Course Assistant JACKELIN Hyatt Contact Information Karlo Nielsen (son) [phone] Advance Directives? Yes History Provided By Patient,Family Member,Medical Record Prior Living Arrangements Skilled Nurse Facility Household Members none Type of transporation used prior to Relies on Others admit Facility Name Admitted From: [facility] Willing to Return to Facility? Currently on comfort measures Independent with ADL's No Is patient alert and oriented? No Caregiver for Another No Community Services used prior to Oxygen Therapy admission: Barriers to Discharge No Discharge Plan Pt expected to in Hospital Transportation Arrangement . Review Status In Process Next Review Type Continued Stay Review
[2020-02-16] MEDS: SCOPOLAMINE 1 PATCH TOP (03:46)
--- NOTE | 2020-02-16 04:08 | PM.DDS.1 ---
Discharge Summary Hospital Course Date of Admission: 02/15/20 01:47 Date of : 02/16/20 Primary care provider: Josue Menchaca DO Consults: 02/15/20 01:42 Consult to Discharge Planning Routine Comment: Discharge provider: Reina Cross Discharge Diagnosis: Acute on chronic hypercapnic respiratory failure Hospital Course: From the H and P by Holly Dougherty MD: Ms. Leyda Nielsen is an 80-year-old female with chronic respiratory failure, atrial fibrillation, congestive heart failure, 2 morbid obesity who was discharged from the hospital at 3:00 p.m. to [facility] on a trilogy for assisted ventilation. The goal was for the patient to be able to rehabilitate to the point that she could be able to walk to the bathroom then return home with hospice. At the facility tonight the patient decompensated became hypoxic with oxygen saturations in the 70s noted staff. The administered bronchodilators attempted chest trilogy to maximize ventilation without sufficient improvement. The patient was brought back to the emergency department at about 9:30 p.m.. The patient was hypoxic and started on high-flow nasal cannula is found to be acidotic with hypercapnia with a pCO2 of 90 and a PaO2 of 155. The patient was conversant at time. Suggestion was made to obtain the trilogy from the [facility] returned the patient on her settings with assistance of respiratory therapy. This was attempted however a component of the mask system is missing rendering the mask ineffective and unable to maintain adequate seal for ventilation. Upon arrival to the ER patient is found to be afebrile with temperature 97.6?, heart rate of 64, blood pressure 106/53 with respirations of 20 saturating 96% on non-rebreather mask. Chest x-ray is obtained finding chronic congestive heart failure pattern with mild acute exacerbation, no pneumonia. Laboratory analysis she has a white count of 6.4 hemoglobin 10.4, hematocrit of 34.1 and platelets of 402. Electrolytes are all within normal limits she has a BUN of 14 and creatinine of 0.7. Nonfasting glucose is 108. Arterial blood gases obtained in the patient has a pH of 7.22, pCO2 of 89, PaO2 of 55, bicarb of 37 with a base excess of +9 on 32% FiO2. Procalcitonin is 0.7, proBNP is 3140 and troponin is 0.019. The patient is able to maintain oxygenation in the emergency however she remains significant hypercapnic. The patient is admitted to the medicine service for ventilatory support on BiPAP. She after long discussion was made comfort care per her power of securities attorney. The patient was admitted to the hospital placed on fentanyl and waws under comfort measures. Family is at the bedside and concurred with the plan to allow her to here in the ICU. She passed at 0353 on 02/16/2020. Objective Labs Result Diagrams: 02/15/20 00:15 02/15/20 00:15
--- NOTE | 2020-02-16 05:46 | PC.NURSE ---
Shift Note-Patient is unresponsive, on Comfort Care. Breathing is irregular with some agonal breathes noted, 2L NC in place, unable to obtain SpO2, lung sounds are dim with underlying coarseness anteriorly. HR bounding with murmur, skin is hot to touch, brief is dry. Family at bedside, requests not to turn her very much. FLACC is 0. At 0345, daughter states her breathing has changed and is gurgling scopolamine patch placed per family request, at 0353, patient stopped breathing, no heartbeat or pulse. Reina CARSON and CO Mariya notified. Family will take all patient's belongings with them when home employer relations representative arrives. Patient was bathed, eyes are closed, has no lines or tubes, no jewelry.
== END 2020-02-16 06:34 | disposition expired | DRG 189 ==
LOC: ED 02-15 01:47 → ICU 02-15 10:18 → AC 02-15 11:06 → ICU 02-15 11:06
PROVIDERS: Admitting Provider Nurse Practitioner Adult Health; Emergency Provider Emergency Medicine; PCP Family Medicine; Visit Provider Nurse Practitioner Adult Health
DX: J96.20 Acute and chronic respiratory failure, unspecified whether with hypoxia or hypercapnia (principal)
CPT/HCPCS: 36600; 71045; 73630; 80048; 81003; 82550; 82805; 83735; 83880; 84145; 84484; 85025; 93005; 94640; 94762; 99284; J2060; J3010; J7613